=== PATIENT | female | born 1955 | race Caucasian/White ===

== ENCOUNTER 2019-07-23 03:06 | Emergency (ER) | payer OTHER, MEDICARE, SELFPAY ==
--- NOTE | 2019-07-23 03:12 | ED.NAVMDI ---
HPI - Nausea/Vomiting/Diarrhea General Chief complaint: Nausea/Vomiting/Diarrhea Stated complaint: vomiting Time Seen by Provider: 07/23/19 03:10 History of Present Illness HPI Narrative: Nausea, vomiting, and diarrhea for the past 4 days. Becoming more severe. No associated diffuse abdominal pain and fever yesterday. Additionally she has some light headedness upon standing. She is on peritoneal dialysis. She still makes some urine. Related Data Allergies Allergy/AdvReac Type Severity Reaction Status Date / Time azithromycin Allergy Severe Hives / Verified 10/16/18 12:25 Red Face cephalexin Allergy Severe Hives / Verified 10/16/18 12:25 Red Face Cephalosporins Allergy Severe Hives / Verified 10/16/18 12:25 Red Face hydrocodone Allergy Severe Hives / Verified 10/16/18 12:25 Red Face Penicillins Allergy Intermediate Hives / Verified 10/16/18 12:25 Red Face codeine Allergy Unknown Unknown Verified 10/16/18 12:25 tetracycline Allergy Unknown Rash Verified 10/16/18 12:25 aspirin AdvReac Severe Ulcers Verified 10/16/18 12:25 caffeine AdvReac Intermediate Other Verified 10/16/18 12:25 diazepam AdvReac Intermediate Confusion Verified 10/16/18 12:25 fentanyl AdvReac Intermediate Nausea Verified 10/16/18 12:25 orphenadrine AdvReac Intermediate Other Verified 10/16/18 12:25 Review of Systems Review of Systems: All systems reviewed & are unremarkable except as noted in HPI and below Constitutional: Constitutional: Reports fatigue and Reports fever(s) Cardiovascular: Cardiovascular: Denies chest pain Respiratory: Respiratory: Denies dyspnea Gastrointestinal: Gastrointestinal: Reports abdominal pain, Reports diarrhea, Reports nausea and Reports vomiting Genitourinary: Genitourinary: Denies dysuria Neurologic: Reports dizziness, Denies syncope and Denies focal weakness Endocrine: Endocrine: Reports fatigue [facility] Past Medical History Medical History (Updated 07/23/19 @ 04:43 by Christoph Carpenter MD) Diabetes mellitus ESRD (end stage renal disease) HTN (hypertension) Peritoneal dialysis status Family History Family History Mother Family history of diabetes mellitus in first degree relative Father Family history of lung cancer Other Malignant neoplasm of prostate Social History Social History Smoking status: Never smoker Alcohol intake: never Gender identity (if verbalized by the patient): Female Exam Const: General: alert and ill appearing acutely Nutritional Appearance: obese Orientation/consciousness: patient oriented x3 HENMT: Mouth: Yes dry mucous membranes Resp: Effort & Inspection: normal respiratory effort Auscultation: clear to auscultation bilaterally Cardio: Rate: tachycardic Rhythm: regular rhythm GI: GI Palp: Yes Soft to palpation and Yes Tenderness to palpation present (GI) Skin: General skin exam: normal color Neuro: General: patient oriented x3 and moves all extremities Speech: normal speech Extrem: General: normal to inspection Course Vital Signs Vital signs: Vital Signs Temperature 37.1 C 07/23/19 03:14 Pulse Rate 123 H 07/23/19 03:14 Respiratory Rate 33 H 07/23/19 03:14 Blood Pressure 117/99 H 07/23/19 03:14 Pulse Oximetry 100 07/23/19 03:14 Temperature 37.1 C 07/23/19 03:14 Pulse Rate 96 07/23/19 05:14 Respiratory Rate 18 07/23/19 05:14 Blood Pressure 135/61 07/23/19 05:14 Pulse Oximetry 99 07/23/19 05:14 MDM - Nausea/Vomiting/Diarrhea MDM Narrative Medical decision making narrative: Pain and vomiting resolved with treatment. She most likely has gastroenteritis and the pain was only due to prolonged episodes of vomiting. Tolerating PO. Wishes to go home at this time. Differential Diagnosis Differential diagnosis: Likely food poisoning, gastroenteritis, dehydration and other (peritonitis)
[2019-07-23 03:14] VITALS: BP 117/99; PULSE 123; RESP 33; TEMP 37.1; O2SAT 100
[2019-07-23] MEDS: ONDANSETRON INJ 4 MG/2 ML VIAL IV PUSH (03:30)
[2019-07-23] MEDS: SODIUM CHLORIDE 0.9% IV 2,000 ML 999 ML IV CONT (03:30)
[2019-07-23] MEDS: METOCLOPRAMIDE HCL INJ 10 MG/2 ML VIAL IV PUSH (03:30)
[2019-07-23 03:35] LABS: Basophils Percent Auto 0.4 % (0.2-1.2); Eosinophils Absolute Auto 0.1 K/mm3 (0-0.3); Eosinophils Percent Auto 0.5 % (0-4.4); Hematocrit 33.8 % (37.0-47.0); Hemoglobin 10.9 g/dL (12.0-15.0); Immature Granulocyte Absolute 0.05 K/mm3 (0.00-0.031); Immature Granulocyte Percent A 0.5 % (0-0.5); Lymphocytes Absolute Auto 1.09 K/mm3 (0.9-3.2); Lymphocytes Percent Auto 10.3 % (18.3-44.2); Mean Corpuscular HGB Conc 32.2 g/dl (32-36); Mean Corpuscular Hemoglobin 31.2 pg (26-34); Mean Corpuscular Volume 96.8 fl (80-100); Mean Platelet Volume 10.9 fl (7.4-10.4); Monocytes Absolute Auto 1.1 K/mm3 (0.1-0.6); Monocytes Percent Auto 10.2 % (2.6-8.5); Neutrophils Absolute Auto 8.3 K/mm3 (1.3-6.7); Neutrophils Percent Auto 78.1 % (45.5-73.1); Platelet Count Result 180 k/mm3 (150-375); Red Blood Count 3.49 M/mm3 (4.2-5.4); Red Cell Distribution Width 12.8 % (11.5-14.5); White Blood Count 10.6 K/mm3 (4.5-10.0)
[2019-07-23 03:46] LABS: Alanine Aminotransferase 17 U/L (4-35); Alkaline Phosphatase 63 U/L (38-126); Aspartate Amino Transferase 23 U/L (14-36); Bilirubin,Total 0.7 mg/dL (0.2-1.3); Blood Urea Nitrogen 34 mg/dL (7-17); Calcium 9.4 mg/dL (8.4-10.2); Carbon Dioxide 29 mmol/L (22-30); Chloride 93 mmol/L (98-107); Estimated CRCL calculation 7 ml/min; Estimated Glomerular Filt Rate 5; Glucose 214 mg/dL (65-105); Lipase 118 U/L (23-300); Potassium 3.3 mmol/L (3.4-5.0); Sodium 136 mmol/L (137-145)
[2019-07-23 04:16] VITALS: BP 132/66; PULSE 94; RESP 21; O2SAT 96
[2019-07-23] MEDS: SODIUM CHLORIDE 0.9% IV 1,000 ML 999 ML IV CONT (04:52)
--- NOTE | 2019-07-23 05:12 | PC.NURSE ---
PT PO CHALLENGED AT THIS TIME PER MD ORDERS.
[2019-07-23 05:14] VITALS: BP 135/61; PULSE 96; RESP 18; O2SAT 99
[2019-07-23 05:55] VITALS: BP 140/67; PULSE 101; RESP 20; O2SAT 97
--- NOTE | 2019-07-25 19:19 | PC.NURSE ---
LATE ENTRY This note is being entered to document information to the patient's record. The following information was omitted on 07/23/2019, ns stopped at [id number]
== END 2019-07-23 05:57 | disposition home or self-care (01) ==
PROVIDERS: Emergency Provider Emergency Medicine; PCP Family Medicine
DX: K52.9 Noninfective gastroenteritis and colitis, unspecified (principal); I12.0 Hypertensive chronic kidney disease with stage 5 chronic kidney disease or end stage renal disease; N18.6 End stage renal disease; Z99.2 Dependence on renal dialysis; E11.22 Type 2 diabetes mellitus with diabetic chronic kidney disease
CPT/HCPCS: 36415; 80053; 83690; 85025; 96361; 96374; 96375; 99284; J2405; J2765; J7030

== ENCOUNTER 2019-08-26 07:33 | Outpatient (CLI) | payer OTHER, MEDICARE, SELFPAY ==
--- NOTE | ~2019-08-26 | MR_ITS ---
EXAMINATION: MR brain/brain stem wo con DATE: 08/26/2019 09:09 CDT INDICATION: Amnesia. History of stroke. TECHNIQUE: Magnetic resonance imaging (MRI) of the brain and brainstem was performed without intraven ous contrast. Sequences included sagittal and axial T1-weighted SE, axial diffusion-weighted FS SE, a xial T2*-weighted GRE, axial T2-weighted FLAIR Propeller, and axial T2-weighted Propeller. Apparent d iffusion coefficient (ADC) maps were created. COMPARISON: MRI dated 09/07/2018 FINDINGS: The brain volume and ventricular system are within normal limits. The brain parenchymal si gnal intensity pattern and altamirano/white matter is normal and there is no evidence of hemorrhage, space occupying masses or infarctions. The flow signal voids of the major arterial structures about the enterprise of Up and within the naun r dural venous sinuses appear grossly unremarkable and patent. The seventh and eighth cranial nerve complexes are normal. The mid sagittal image demonstrates a normal craniovertebral junction and nyasia us callosum. The paranasal sinuses are grossly unremarkable. IMPRESSION: 1: Unremarkable MRI of the brain. Reviewed, dictated and finalized at location A.
== END 2019-08-26 07:34 | disposition home or self-care (01) ==
LOC: ANHIMG 07:42
PROVIDERS: PCP Family Medicine; Visit Provider Internal Medicine Nephrology
DX: Q61.2 Polycystic kidney, adult type (principal); R41.3 Other amnesia; Z82.3 Family history of stroke
CPT/HCPCS: 70551

== ENCOUNTER 2019-09-09 08:51 | Outpatient (CLI) | payer OTHER, MEDICARE, SELFPAY | END 2019-09-09 08:52 | disposition home or self-care (01) | PROVIDERS: PCP Family Medicine; Visit Provider Family Medicine | DX: E03.9 Hypothyroidism, unspecified (principal) | CPT/HCPCS: 36415; 84443 ==

== ENCOUNTER 2019-12-30 17:13 | Emergency (ER) | payer MEDICARE, OTHER, SELFPAY ==
[2019-12-30] VITALS (12 sets, daily range): BP systolic 129–164; BP diastolic 60–75; PULSE 114–123; RESP 13–20; TEMP 37.1; O2SAT 97–100
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
[2019-12-30] MEDS: MORPHINE SULFATE 2 MG/ML INJ IV PUSH (17:34)
[2019-12-30] MEDS: ONDANSETRON INJ 4 MG/2 ML VIAL IV PUSH (17:35)
--- NOTE | 2019-12-30 17:35 | ECG_ITS ---
Measurements Intervals [place] Rate: 111 P: 55 OK: 158 QRS: 27 QRSD: 92 T: 33 QT: 316 QTc: 431 Interpretive Statements SINUS TACHYCARDIA ABNORMAL ECG Electronically Signed On 12-30-2019 19:59:38 CDT by Felipe Olivares D.O.
[2019-12-30 17:52] LABS: Basophils Absolute Auto 0.1 K/mm3 (0.0-0.1); Basophils Percent Auto 0.7 % (0.2-1.2); Eosinophils Absolute Auto 0.5 K/mm3 (0-0.3); Eosinophils Percent Auto 7.5 % (0-4.4); Hematocrit 31.8 % (37.0-47.0); Hemoglobin 10.1 g/dL (12.0-15.0); Immature Granulocyte Absolute 0.01 K/mm3 (0.00-0.031); Immature Granulocyte Percent A 0.1 % (0-0.5); Lymphocytes Absolute Auto 1.74 K/mm3 (0.9-3.2); Lymphocytes Percent Auto 24.1 % (18.3-44.2); Mean Corpuscular HGB Conc 31.8 g/dl (32-36); Mean Corpuscular Hemoglobin 31.8 pg (26-34); Mean Platelet Volume 10.5 fl (7.4-10.4); Monocytes Absolute Auto 0.7 K/mm3 (0.1-0.6); Monocytes Percent Auto 9.5 % (2.6-8.5); Neutrophils Absolute Auto 4.2 K/mm3 (1.3-6.7); Neutrophils Percent Auto 58.1 % (45.5-73.1); Platelet Count Result 140 k/mm3 (150-375); Red Blood Count 3.18 M/mm3 (4.2-5.4); Red Cell Distribution Width 15.4 % (11.5-14.5); White Blood Count 7.2 K/mm3 (4.5-10.0)
[2019-12-30 18:01] LABS: Prothrombin Time 12.9 Seconds (11.1-14.7)
[2019-12-30 18:02] LABS: Alanine Aminotransferase 15 U/L (4-35); Albumin Level 3.9 g/dL (3.5-5.1); Alkaline Phosphatase 81 U/L (38-126); Anion Gap 14.8 mmol/L (7-16); Aspartate Amino Transferase 25 U/L (14-36); Bilirubin,Total 0.4 mg/dL (0.2-1.3); Blood Urea Nitrogen 38 mg/dL (7-17); Calcium 9.3 mg/dL (8.4-10.2); Carbon Dioxide 25 mmol/L (22-30); Chloride 100 mmol/L (98-107); Estimated CRCL calculation 6 ml/min; Estimated Glomerular Filt Rate 5; Glucose 143 mg/dL (65-105); Partial Thromboplastin Time 29.6 SECONDS (22.3-36.8); Potassium 3.8 mmol/L (3.4-5.0); Sodium 136 mmol/L (137-145)
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
== END 2019-12-30 18:20 | disposition short-term general hospital (02) ==
PROVIDERS: Emergency Medicine Emergency Medical Services; Emergency Provider Emergency Medicine; PCP Family Medicine
DX: R10.33 Periumbilical pain (principal); E11.22 Type 2 diabetes mellitus with diabetic chronic kidney disease; I12.0 Hypertensive chronic kidney disease with stage 5 chronic kidney disease or end stage renal disease; N18.6 End stage renal disease; Z99.2 Dependence on renal dialysis; V49.50XA Passenger injured in collision with unspecified motor vehicles in traffic accident, initial encounter; Z98.890 Other specified postprocedural states; R00.0 Tachycardia, unspecified
CPT/HCPCS: 36415; 71045; 72170; 80053; 85025; 85610; 85730; 93005; 96374; 96375; 99285; J2270; J2405

== ENCOUNTER 2020-07-02 10:07 | Emergency (ER) | payer OTHER, MEDICARE, SELFPAY ==
--- NOTE | ~2020-07-02 | XR_ITS ---
EXAMINATION: XR hip RT 2V w AP pelvis DATE: 07/02/2020 10:58 INDICATION: Right hip pain. TECHNIQUE: An anteroposterior view of the pelvis and 2 views of right hip were obtained. COMPARISON: Pelvis radiograph 12/30/2019 FINDINGS: Bone alignment is normal. No fracture. Joint spaces are normal. A peritoneal dialysis gary ter is noted. IMPRESSION: 1. Normal hips. Reviewed, dictated and finalized at location A. T TEAM MEMBER IMPRESSION: 1. Normal hips.
--- NOTE | ~2020-07-02 | XR_ITS ---
EXAMINATION: XR knee RT min 4V DATE: 07/02/2020 10:59 INDICATION: Right knee injury. TECHNIQUE: 4 views of right knee were obtained. COMPARISON: Right knee radiographs 05/08/2009 FINDINGS: Bone alignment is normal. No fracture. There is mild tricompartmental osteoarthritis. There is a small knee joint effusion. IMPRESSION: 1. Mild right knee osteoarthritis. 2. Small right knee joint effusion. Reviewed, dictated and finalized at location A. RONMENTAL COMPLIANCE INSPECTOR
--- NOTE | 2020-07-02 10:22 | ED.LOWEXIN ---
HPI - Extremity Injury (Lower) General Chief Complaint: Fall Stated Complaint: fall, right knee injury Time Seen by Provider: 07/02/20 10:22 History of Present Illness HPI Narrative: 64 you female present to the ED with knee pain. She reports that this morning she slipped on the ice and twisted her right knee. She reports several pops immediately and more pops when she began moving her knee again. She was then able to put it back in place . 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 And she ambulated into the ED to be seen. No weakness, numbness, wound. Related Data Home Medications Medication Instructions Recorded Confirmed albuterol sulfate 90 mcg/actuation 1 puff INHALATION Q4H PRN 03/25/20 05/26/20 aerosol inhaler cyclobenzaprine 10 mg tablet 10 mg PO BID PRN tablet 03/25/20 05/26/20 furosemide 80 mg tablet 80 mg PO BID 03/25/20 05/26/20 vitamin B complex-vitamin C-folic 1 tablet PO DAILY 03/25/20 05/26/20 acid 0.8 mg tablet Allergies Allergy/AdvReac Type Severity Reaction Status Date / Time azithromycin Allergy Severe Hives / Verified 03/25/20 13:54 Red Face cephalexin Allergy Severe Hives / Verified 03/25/20 13:54 Red Face Cephalosporins Allergy Severe Hives / Verified 03/25/20 13:54 Red Face hydrocodone Allergy Severe Hives / Verified 03/25/20 13:54 Red Face Penicillins Allergy Intermediate Hives / Verified 03/25/20 13:54 Red Face codeine Allergy Unknown Unknown Verified 03/25/20 13:54 tetracycline Allergy Unknown Rash Verified 03/25/20 13:54 aspirin AdvReac Severe Ulcers Verified 03/25/20 13:54 caffeine AdvReac Intermediate Other Verified 03/25/20 13:54 diazepam AdvReac Intermediate Confusion Verified 03/25/20 13:54 fentanyl AdvReac Intermediate Nausea Verified 03/25/20 13:54 orphenadrine AdvReac Intermediate Other Verified 03/25/20 13:54 Review of Systems Review of Systems: All systems reviewed & are unremarkable except as noted in HPI and below Constitutional: Constitutional: Denies fever(s) and Denies weakness ENT: Denies dizziness Cardiovascular: Cardiovascular: Denies chest pain Respiratory: Respiratory: Denies dyspnea Gastrointestinal: Gastrointestinal: Denies nausea Musculoskeletal: Musculoskeletal: Reports back pain (chronic) Neurologic: Denies dizziness, Denies numbness and Denies weakness [facility] Past Medical History Medical History Asthma Chronic back pain Diabetes mellitus (~1995) End-stage renal disease on peritoneal dialysis GERD (gastroesophageal reflux disease) Gout HTN (hypertension) (~1983) Hypothyroidism (acquired) Peritoneal dialysis status (~06/2016) Polycystic kidney disease Vitamin D deficiency Surgical History Surgical History H/O colonoscopy (~02/23/15) H/O hernia repair 06/1995, 11/2019 History of partial hysterectomy (~11/1993) History of removal of Port-a-Cath (~07/06/18) 1st: 2016. 2nd: 11/2018 History of tonsillectomy (~06/1959) History of tubal ligation (~06/1976) Hx of appendectomy (~01/1980) Hx of cholecystectomy (~04/1995) Hx of umbilical hernia repair (~06/1979) Status post chemotherapy (~2018) Family History Family History Mother Family history of diabetes mellitus in first degree relative Father Family history of lung cancer Other Malignant neoplasm of prostate Social History Social History Social History: Pt does not drink caffeine Smoking status: Never smoker Alcohol intake: never Substance use: never Substance use type: does not use Additional occupation/education comments: Pt works for [employer]. Gender identity (if verbalized by the patient): Female Spiritual care concerns: No Agree to blood products: Yes
[2020-07-02 10:30] VITALS: BP 165/79; PULSE 118; RESP 14; TEMP 35.9; O2SAT 99
[2020-07-02 13:04] VITALS: BP 154/70; PULSE 99; RESP 14; O2SAT 99
== END 2020-07-02 13:04 | disposition home or self-care (01) ==
PROVIDERS: Emergency Provider Emergency Medicine; PCP Family Medicine
DX: S83.91XA Sprain of unspecified site of right knee, initial encounter (principal); E11.22 Type 2 diabetes mellitus with diabetic chronic kidney disease; I12.0 Hypertensive chronic kidney disease with stage 5 chronic kidney disease or end stage renal disease; N18.6 End stage renal disease; Z99.2 Dependence on renal dialysis; J45.909 Unspecified asthma, uncomplicated; Q61.3 Polycystic kidney, unspecified; E55.9 Vitamin D deficiency, unspecified; E03.9 Hypothyroidism, unspecified; K21.9 Gastro-esophageal reflux disease without esophagitis; M10.9 Gout, unspecified; M17.11 Unilateral primary osteoarthritis, right knee; W00.0XXA Fall on same level due to ice and snow, initial encounter
CPT/HCPCS: 73502; 73564; 99284

== ENCOUNTER 2020-10-23 12:22 | Inpatient (IN) | payer MEDICARE, OTHER, SELFPAY ==
[2020-10-23] VITALS (12 sets, daily range): BP systolic 119–152; BP diastolic 51–73; PULSE 67–106; RESP 12–16; TEMP 36.2–37.1; O2SAT 98–100; BMI 33.2
--- NOTE | ~2020-10-23 | CT_ITS ---
EXAMINATION: CT abdomen pelvis wo con EXAM DATE: 10/23/2020 13:29 INDICATION: Abdominal pain, hypertension. Urinary tract infection. TECHNIQUE: Spiral CT of the abdomen and pelvis was performed without contrast. Axial, coronal and sag ittal images were reviewed. The dose-length product (DLP) for this examination was 1212.11 mGy-cm. The exposure was tailored according to patient size (auto mA exposure control), and iterative reconst ruction (ASIR) was used as additional dose reduction technique. Comparison is made to prior examinati on from 03/08/2018. FINDINGS: There are innumerable renal cysts and hemorrhagic cysts. Impossible to exclude renal cell c ancer in this setting. Innumerable liver cysts as well. Autosomal dominant polycystic kidney disease. There is no hydronephrosis. There is a peritoneal dialysis catheter with some dialysate, free pelvic fluid. Cholecystectomy clips. Spleen, adrenal glands, pancreas are unremarkable. No retroperitoneal lymphadenopathy. Bladder is collapsed. The appendix is not positively visualized. There is no pericecal inflammatory change to suggest appe ndicitis. There is extensive sigmoid colonic diverticulosis. There is no adjacent inflammatory barrientos e to suggest diverticulitis. The stomach and small bowel are unremarkable. There is expected amount of colonic stool. No free intraperitoneal gas. The heart is normal in size. There are no pericar dial or pleural effusions. The lung bases are unremarkable. There are no osteoblastic or osteolytic lesions identified. Mild to moderate lumbar levoscoliosis. Mild chronic compression fracture L1. IMPRESSION: 1. No acute intra-abdominal findings. 2. Autosomal dominant polycystic kidney disease. Impossible to exclude solid renal mass in the setti ng. 3. Extensive sigmoid colonic diverticulosis. Reviewed, dictated and finalized at location A. IMPRESSION: 1. No acute intra-abdominal findings. 2. Autosomal dominant polycystic kidney disease. Impossible to exclude solid r enal mass in the setting. 3. Extensive sigmoid colonic diverticulosis.
--- NOTE | ~2020-10-23 | XR_ITS ---
EXAMINATION: XR chest 2V EXAM DATE: 10/23/2020 12:45 INDICATION: Chest pain, shortness of breath. History hypertension. Dialysis. TECHNIQUE: Frontal and lateral projections of the chest obtained and reviewed. Comparison is made to prior examination from 12/30/2019. FINDINGS: The lungs are clear. There are no pleural effusions. The cardiomediastinal silhouette is within normal limits. There is no pneumothorax suspected. The bones and soft tissues are unremarkab le. There are cholecystectomy clips. IMPRESSION: No acute cardiopulmonary findings. Reviewed, dictated and finalized at location A.
--- NOTE | ~2020-10-23 | US_ITS ---
EXAMINATION: US renal BI DATE: 10/23/2020 17:09 INDICATION: Renal mass TECHNIQUE: Multiple grayscale and Doppler ultrasound images of the kidneys were obtained. COMPARISON: CT from today FINDINGS: The right kidney measures 9.9 x 5.1 x 4.8 cm and contains innumerable cysts. The largest me asured cyst is 1.8 cm in greatest dimension. The left kidney measures 9.8 x 4.3 x 5.0 cm and contains innumerable cysts. The largest measured cyst 4.2 cm in greatest dimension. No definite renal mass is identified. There is no hydronephrosis. The bladder demonstrates mild wall thickening which could be due to incomplete distention. IMPRESSION: 1. Polycystic kidneys without definite renal mass identified however evaluation for renal mass would be better achieved by CT or MRI without and with contrast. Reviewed, dictated and finalized at location A. IMPRESSION: 1. Polycystic kidneys without definite renal mass identified however evaluation for renal mass would be better achieved by CT or MRI without and with contrast .
--- NOTE | 2020-10-23 12:25 | ECG_ITS ---
Measurements Intervals [place] Rate: 104 P: 41 NM: 155 QRS: 20 QRSD: 86 T: 35 QT: 329 QTc: 435 Interpretive Statements SINUS TACHYCARDIA BASELINE ARTIFACT- I, II, III, AVF, V2-V6 BORDERLINE ECG Electronically Signed On 10-23-2020 13:09:45 CDT by Felipe Olivares D.O.
--- NOTE | 2020-10-23 12:35 | PC.NURSE ---
to xray at this time on cardiac cath lab technologist.
[2020-10-23 12:41] LABS: Basophils Absolute Auto 0.1 K/mm3 (0.0-0.1); Basophils Percent Auto 0.7 % (0.2-1.2); Eosinophils Absolute Auto 0.1 K/mm3 (0-0.3); Eosinophils Percent Auto 1.6 % (0-4.4); Hematocrit 27.7 % (37.0-47.0); Hemoglobin 8.8 g/dL (12.0-15.0); Immature Granulocyte Absolute 0.04 K/mm3 (0.00-0.031); Immature Granulocyte Percent A 0.5 % (0-0.5); Lymphocytes Absolute Auto 1.88 K/mm3 (0.9-3.2); Lymphocytes Percent Auto 23.2 % (18.3-44.2); Mean Corpuscular HGB Conc 31.8 g/dl (32-36); Mean Corpuscular Volume 100.7 fl (80-100); Mean Platelet Volume 10.5 fl (7.4-10.4); Monocytes Absolute Auto 0.7 K/mm3 (0.1-0.6); Monocytes Percent Auto 8.4 % (2.6-8.5); Neutrophils Absolute Auto 5.3 K/mm3 (1.3-6.7); Neutrophils Percent Auto 65.6 % (45.5-73.1); Platelet Count Result 170 k/mm3 (150-375); Red Blood Count 2.75 M/mm3 (4.2-5.4); Red Cell Distribution Width 13.9 % (11.5-14.5); White Blood Count 8.1 K/mm3 (4.5-10.0)
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
--- NOTE | 2020-10-23 12:45 | PC.NURSE ---
PT REPORTS SHE IS SWEATING, FLUSHED AND FEELS FAINT, VSS AT THIS TIME, EDP ANIRUDH AT BEDSIDE FOR ASSESSMENT. COOL TOWEL PLACED ON HEAD.
[2020-10-23 12:51] LABS: INR 0.9; Prothrombin Time 12.7 Seconds (11.1-14.7)
[2020-10-23 12:52] LABS: Anion Gap 14 mmol/L (8-16); Blood Urea Nitrogen 51 mg/dL (7-17); Carbon Dioxide 22 mmol/L (22-30); Chloride 98 mmol/L (98-107); Estimated CRCL calculation 4 ml/min; Estimated Glomerular Filt Rate 3; Glucose 162 mg/dL (65-105); Partial Thromboplastin Time 27.6 SECONDS (22.3-36.8); Potassium 3.9 mmol/L (3.4-5.0); Sodium 134 mmol/L (137-145)
[2020-10-23] MEDS: MORPHINE SULFATE (*CRX) 4 MG/ML INJ IV PUSH (12:54)
[2020-10-23] MEDS: ONDANSETRON INJ 4 MG/2 ML VIAL IV PUSH ×2 (12:54→18:25)
[2020-10-23 13:04] LABS: Troponin I < 0.012 ng/mL (0.000-0.034)
[2020-10-23 13:21] LABS: Lactic Acid Reflex 1.3 mmol/L (0.7-2.1)
--- NOTE | 2020-10-23 13:56 | ED.CHESTPAIN ---
HPI - Chest Pain General Chief Complaint: Chest Pain Stated Complaint: sudden chest tightness Time Seen by Provider: 10/23/20 12:44 Source: patient Mode of arrival: ambulatory Limitations: no limitations History of Present Illness HPI narrative: 64-year-old with a history of hypertension, end-stage renal disease secondary to polycystic kidney disease on peritoneal dialysis for last 8 years here with complaints of chest pain and abdominal pain associated with nausea and diaphoresis. Patient states that pain started about 1 hour ago. She denies any fever or chills. Patient states that flow from the peritoneal dialysis catheter was slower last night however the fluid was clear. She denies any fever or chills. No history of cough or shortness of breath. MD complaint: chest pain Onset (ago): hour(s) (1) Timing of current episode: episodic Pain location: substernal Pain radiation: none Severity: moderate Quality: heaviness Relieving factors: nothing Exacerbating factors: nothing Treatment prior to arrival: none Risk Factors Coronary artery disease risk factors: hypertension Thoracic aortic dissection risk factors: none Related Data Home Medications Medication Instructions Recorded Confirmed albuterol sulfate 90 mcg/actuation 1 puff INHALATION Q4H PRN 03/25/20 07/03/20 aerosol inhaler furosemide 80 mg tablet 80 mg PO BID 03/25/20 07/03/20 vitamin B complex-vitamin C-folic 1 tablet PO DAILY 03/25/20 07/03/20 acid 0.8 mg tablet Allergies Allergy/AdvReac Type Severity Reaction Status Date / Time azithromycin Allergy Severe Hives / Verified 03/25/20 13:54 Red Face cephalexin Allergy Severe Hives / Verified 03/25/20 13:54 Red Face Cephalosporins Allergy Severe Hives / Verified 03/25/20 13:54 Red Face hydrocodone Allergy Severe Hives / Verified 03/25/20 13:54 Red Face Penicillins Allergy Intermediate Hives / Verified 03/25/20 13:54 Red Face codeine Allergy Unknown Unknown Verified 03/25/20 13:54 tetracycline Allergy Unknown Rash Verified 03/25/20 13:54 aspirin AdvReac Severe Ulcers Verified 03/25/20 13:54 caffeine AdvReac Intermediate Other Verified 03/25/20 13:54 diazepam AdvReac Intermediate Confusion Verified 03/25/20 13:54 fentanyl AdvReac Intermediate Nausea Verified 03/25/20 13:54 orphenadrine AdvReac Intermediate Other Verified 03/25/20 13:54 Review of Systems Review of Systems: All systems reviewed & are unremarkable except as noted in HPI and below Constitutional: Constitutional: Reports no additional constitutional complaints Eyes: Eyes: Reports no additional eye complaints ENT: Reports system reviewed and no additional complaints, except as documented Cardiovascular: Cardiovascular: Reports as per HPI Respiratory: Respiratory: Reports no additional respiratory complaints Gastrointestinal: Gastrointestinal: Reports as per HPI, Reports abdominal pain and Reports nausea Musculoskeletal: Musculoskeletal: Reports no additional musculoskeletal complaints Neurologic: Reports system reviewed and no additional complaints, except as documented PMFSH Past Medical History Medical History Asthma Chronic back pain Diabetes mellitus (~1995) End-stage renal disease on peritoneal dialysis GERD (gastroesophageal reflux disease) Gout HTN (hypertension) (~1983) Hypothyroidism (acquired) Peritoneal dialysis status (~06/2016) Polycystic kidney disease Vitamin D deficiency Surgical History Surgical History H/O colonoscopy (~02/23/15) H/O hernia repair 06/1995, 11/2019 History of partial hysterectomy (~11/1993) History of removal of Port-a-Cath (~07/06/18) 1st: 2016. 2nd: 11/2018 History of tonsillectomy (~06/1959) History of tubal ligation (~06/1976) Hx of appendectomy (~01/1980) Hx of cholecystectomy (~04/1995) Hx of umbilical hernia repair (~06/1979) Status post chemotherapy (~201
--- NOTE | 2020-10-23 14:49 | ADMGEN ---
This patient, Shantelle Salinas, was admitted to IMU Room 203-01. Patient/family oriented to hospital policies and general routines including ID bracelet, bed and alarms, visiting hours, pain management, procedures, bathroom and other care routines, personal items, smoking policy, room service/diet, and visiting hours. Information on how to activate the Rapid Response Team has been discussed. Patient/Family are encouraged to report perceived risks to care and to ask questions if they do not understand what they are told or what they should do.
--- NOTE | 2020-10-23 15:43 | PM.IMHP ---
H&P: HPI History of Present Illness Date/Time: 10/23/20 15:43 this is a 64-year-old female patient who has been on peritoneal dialysis since she was 59 years old. She has polycystic kidney disease. The patient does peritoneal dialysis every night while she sleeps. The patient stated that her dialysis catheter has been draining fine. She stated that the clear fluid has been coming from her peritoneal dialysis. In for left-sided chest pressure that she stated radiated to her left arm and she felt diaphoretic and short of breath at the time. It Is now resolved. The patient is now complaining of right lower quadrant tenderness. Nephrology has been consulted. And the deviated team came to draw fluid offer for her abdomen and sent it for culture. I did review the fluid myself that was obtained from the peritoneal dialysis catheter in it appears to be clear. Patient has tenderness to the right lower quadrant but is not in a significant amount of pain. She stated that she would like a Tylenol and that would work for her. Her troponin is negative so far. Patient's EKG was read as sinus tachycardia with heart rate of 104. No acute intra-abdominal findings. Autosomal dominant polycystic kidney disease and possible to exclude solid renal mass in the setting. Extensive sigmoid colonic diverticulosis. Was read as no acute cardiopulmonary findings. H&H is 8.8 and 27.7. The patient stated that she does get Epogen maybe once a week. The patient stated that she does make urine but is very little amount. The patient is being admitted to observation status on the date of service 10/23/2020. Chief Complaint: Chest pain with abdominal pain Review of Systems Review of Systems: All systems reviewed & are unremarkable except as noted in HPI and below Constitutional: Constitutional: Reports as per HPI and Reports no additional constitutional complaints Eyes: Eyes: Reports as per HPI and Reports no additional eye complaints ENT: Reports system reviewed and no additional complaints, except as documented and Reports Normal hearing present Cardiovascular: Cardiovascular: Reports no additional cardiovascular complaints Respiratory: Respiratory: Reports no additional respiratory complaints and Reports no additional respiratory complaints Gastrointestinal: Gastrointestinal: Reports as per HPI and Reports no additional gastrointestinal complaints Musculoskeletal: Musculoskeletal: Reports no additional musculoskeletal complaints Integumentary/Breasts: Skin/Breast: Reports system reviewed and no additional complaints, except as docu and Reports as per HPI Neurologic: Reports system reviewed and no additional complaints, except as documented, Reports as per HPI and Reports Normal hearing present Psychiatric: Psychiatric: Reports no additional psychiatric complaints and Reports as per HPI Endocrine: Endocrine: Reports no additional endocrine complaints Hematologic/Lymphatic: Hematologic/Lymphatic: Reports no additional hematologic/lymphatic complaints Allergic/Immunologic: Allergic/Immunologic: Reports no additional allergic/immunologic complaints [facility] Past Medical History Medical History (Updated 10/23/20 @ 16:29 by Pratibha Perez NP) Anemia of chronic disease Asthma Chronic back pain Diabetes mellitus (~1995) End-stage renal disease on peritoneal dialysis GERD (gastroesophageal reflux disease) Gout HTN (hypertension) (~1983) Hypothyroidism (acquired) Peritoneal dialysis status (~06/2016) Polycystic kidney disease Vitamin D deficiency Surgical History Surgical History (Updated 10/23/20 @ 16:06 by Pratibha Perez NP) H/O colonoscopy (~02/23/15) H/O hernia repair 06/1995, 11/2019 History of partial hysterectomy (~11/1993) History of tonsillectomy (~06/1959) History of tubal ligation (~06/1976) Hx of appendectomy (~01/1980) Hx of cholecystectomy (~04/1995) Hx of umbilical hernia repair (~06/1979) Family History Family History (Updated
[2020-10-23 16:15] LABS: Troponin I < 0.012 ng/mL (0.000-0.034)
--- NOTE | 2020-10-23 16:23 | PM.CNNEP ---
Assessment and Plan Assessment and plan (1) End-stage renal disease on peritoneal dialysis: Code(s): N18.6 - End stage renal disease; Z99.2 - Dependence on renal dialysis Status: Acute Assessment and Plan: The patient is on peritoneal dialysis. He has been on dialysis for 5 years. Generally her dialysis goes well. Recently she has had good flows and no alarms. Her fluid has been clear. She does have the belly pain but it is very localized to that right middle nonant. The rest of the belly has no tenderness and no peritoneal signs. The tunnel and exit site are on the left, no where near where her pain is. Her labs are okay and her volume status is good. (2) Chest pain: Qualifiers: Chest pain type: unspecified Qualified Code(s): R07.9 - Chest pain, unspecified Code(s): R07.9 - Chest pain, unspecified Status: Acute Assessment and Plan: She had chest pain with tingling in the left arm. This is being evaluated by the hospitalist. (3) Abdominal pain: Qualifiers: Abdominal location: generalized Qualified Code(s): R10.84 - Generalized abdominal pain Code(s): R10.9 - Unspecified abdominal pain Status: Acute Assessment and Plan: I looked at her CT scan. She has a big liver full is cysts. Her kidneys are full is cysts also but are not very big. I suspect that this may be polycystic liver disease. The tenderness might be liver tenderness. She does not seem to be volume overloaded so I do not think his passive congestion. She also has normal liver enzyme so there does not seem to be in acute hepatitic issue. Perhaps she bled into a cyst. However she also has the nausea and vomiting with pink sludge vomitus. So she might be having some sort of a GI bleed issue. Will check stool guaiacs. Dr. Chase is being consulted. (4) Polycystic kidney disease: Code(s): Q61.3 - Polycystic kidney, unspecified Status: Acute Assessment and Plan: The patient has polycystic kidneys. It does not seem to be any kidney stones, pain with urination, bloody urine or headaches. (5) HTN (hypertension): Onset Date: ~1983 Qualifiers: Hypertension type: essential hypertension Qualified Code(s): I10 - Essential (primary) hypertension Code(s): I10 - Essential (primary) hypertension Status: Acute Assessment and Plan: Her blood pressure is well controlled. (6) Anemia of chronic disease: Code(s): D63.8 - Anemia in other chronic diseases classified elsewhere Status: Chronic Assessment and Plan: Her hemoglobin is 8.8. Will start Epogen subcu. (7) Gout: Qualifiers: Gout site: unspecified site Gout etiology: unspecified cause Chronicity: unspecified Qualified Code(s): M10.9 - Gout, unspecified Code(s): M10.9 - Gout, unspecified Status: Acute Assessment and Plan: This is quiescent. (8) Diabetes mellitus: Onset Date: ~1995 Qualifiers: Diabetes mellitus type: type 2 Diabetes mellitus alf insulin use: without director long term care use Diabetes mellitus complication status: without complication Qualified Code(s): E11.9 - Type 2 diabetes mellitus without complications Code(s): E11.9 - Type 2 diabetes mellitus without complications Status: Acute Assessment and Plan: To be monitored. History of Present Illness Reason for Consult Consult date: 10/23/20 Chief Complaint Chief complaint: ABDOMINAL PAIN History of Present Illness Narrative: Courtney is a very pleasant 64-year-old lady who has multiple medical problems including diabetes, hypertension, polycystic kidneys, end-stage renal disease on peritoneal dialysis every night, COPD on inhalers, gout on allopurinol, hypothyroidism, GERD, anemia of chronic kidney disease, renal osteodystrophy. The patient has been having problems for about a month or 5 weeks. She says that she occasionally h
[2020-10-23 16:36] LABS: Phosphorus 7.9 mg/dL (2.5-4.5)
[2020-10-23 18:05] LABS: Glucose Point of Care 118 mg/dl (65-105)
[2020-10-23] MEDS: ACETAMINOPHEN 325 MG TABLET 650 MG PO (18:13)
[2020-10-23 18:14] LABS: Immature Reticulocyte Fraction 26.9 % (3.0-15.9); Reticulocyte Percent 2.19 % (0.7-4.3); Reticulocytes Absolute 0.06 B/L (32.2-175.7)
[2020-10-23] MEDS: SEVELAMER CARBONATE 800 MG TABLET 1600 MG PO (18:15)
[2020-10-23] MEDS: FUROSEMIDE 80 MG TABLET PO (18:15)
[2020-10-23 18:35] LABS: Troponin I < 0.012 ng/mL (0.000-0.034)
[2020-10-23] MEDS: EPOETIN ALFA-EPBX 10,000 UNITS/ML VIAL 10000 UNITS SUB-Q (18:46)
[2020-10-23 19:04] LABS: Iron 80 ug/dL (37-170)
[2020-10-23 19:13] LABS: Percent Iron Saturation 35 % (20-50)
--- NOTE | 2020-10-23 19:35 | PC.NURSE ---
Called Dr. Flowers to clarify patients peritoneal dialysis settings. His current orders differ from what the patient states her normal home settings are. Dr. Flowers stated to ask ARNULFO Long the online advertising analyst fleet salesperson to come to [facility] and work with the patient to set the PD machine to reflect her current home settings and run the patient overnight per her normal routine. I called ARNULFO Long and spoke to him informing him of Dr. Flowers's verbal instructions. Ethan stated that he understood and would be to [facility] once he finished his current dialysis treatment patient at [facility] Patient informed of new information.
[2020-10-23 20:03] LABS: Appearance Peritoneal Fluid Cloudy (Clear); Color Peritoneal Fluid Colorless (Colorless); Nucleated Cells Peritoneal Flu 135 /uL (0-500); RBC Peritoneal Fluid 0 /uL (0-100000); Source Peritoneal Fluid Peritoneal Fluid
[2020-10-23] MEDS: MORPHINE SULFATE (*CRX) 2 MG/ML INJ IV PUSH (20:13)
[2020-10-23 20:39] LABS: Folic Acid > 20.0 ng/mL (2.76->20)
[2020-10-23 21:44] LABS: Glucose Point of Care 129 mg/dl (65-105)
[2020-10-24] VITALS (10 sets, daily range): BP systolic 99–112; BP diastolic 43–49; PULSE 57–76; RESP 16–24; TEMP 35.8–36.3; O2SAT 99–100
[2020-10-24] MEDS: LEVOTHYROXINE SODIUM 12.5 MCG TABLET PO (05:45)
[2020-10-24 05:46] LABS: Basophils Absolute Auto 0.1 K/mm3 (0.0-0.1); Basophils Percent Auto 0.9 % (0.2-1.2); Eosinophils Absolute Auto 0.3 K/mm3 (0-0.3); Hematocrit 27.7 % (37.0-47.0); Hemoglobin 8.7 g/dL (12.0-15.0); Immature Granulocyte Absolute 0.02 K/mm3 (0.00-0.031); Immature Granulocyte Percent A 0.3 % (0-0.5); Lymphocytes Absolute Auto 1.89 K/mm3 (0.9-3.2); Lymphocytes Percent Auto 29.3 % (18.3-44.2); Mean Corpuscular HGB Conc 31.4 g/dl (32-36); Mean Corpuscular Hemoglobin 32.5 pg (26-34); Mean Corpuscular Volume 103.4 fl (80-100); Mean Platelet Volume 10.7 fl (7.4-10.4); Monocytes Absolute Auto 0.6 K/mm3 (0.1-0.6); Monocytes Percent Auto 8.5 % (2.6-8.5); Neutrophils Absolute Auto 3.7 K/mm3 (1.3-6.7); Platelet Count Result 162 k/mm3 (150-375); Red Blood Count 2.68 M/mm3 (4.2-5.4); Red Cell Distribution Width 13.8 % (11.5-14.5); White Blood Count 6.5 K/mm3 (4.5-10.0)
[2020-10-24 06:17] LABS: Alanine Aminotransferase 15 U/L (4-35); Albumin Level 3.7 g/dL (3.5-5.1); Alkaline Phosphatase 33 U/L (38-126); Anion Gap 12 mmol/L (8-16); Aspartate Amino Transferase 25 U/L (14-36); Bilirubin,Total 0.4 mg/dL (0.2-1.3); Blood Urea Nitrogen 48 mg/dL (7-17); Calcium 10.1 mg/dL (8.4-10.2); Carbon Dioxide 26 mmol/L (22-30); Chloride 97 mmol/L (98-107); Estimated CRCL calculation 4 ml/min; Estimated Glomerular Filt Rate 3; Glucose 134 mg/dL (65-105); Magnesium 2.7 mg/dL (1.6-2.3); Potassium 3.6 mmol/L (3.4-5.0); Sodium 135 mmol/L (137-145)
[2020-10-24 06:36] LABS: Hemoglobin A1C 6.3 % (<5.7)
[2020-10-24 08:32] LABS: Glucose Point of Care 138 mg/dl (65-105)
[2020-10-24] MEDS: allopurinoL 150 MG TABLET PO (08:48)
[2020-10-24] MEDS: PANTOPRAZOLE 40 MG TABLET PO (08:48)
[2020-10-24] MEDS: METOPROLOL SUCCINATE EXT REL 25 MG TABCR PO (08:48)
[2020-10-24] MEDS: SEVELAMER CARBONATE 800 MG TABLET 1600 MG PO ×2 (08:48→16:52)
[2020-10-24] MEDS: VITAMIN B CMPLX/VIT C/FOLIC AC 1 CAPSULE 1 CAP PO (08:48)
[2020-10-24] MEDS: PIOGLITAZONE HCL 30 MG TABLET PO (08:48)
[2020-10-24] MEDS: FUROSEMIDE 80 MG TABLET PO ×2 (08:49→16:52)
[2020-10-24] MEDS: lisinopriL 10 MG TABLET PO (08:49)
--- NOTE | 2020-10-24 11:06 | PM.PNNEP ---
Progress Note: A&P Assessment and Plan (1) End-stage renal disease on peritoneal dialysis: Code(s): N18.6 - End stage renal disease; Z99.2 - Dependence on renal dialysis Status: Acute Assessment and Plan: The patient is on peritoneal dialysis. He has been on dialysis for 5 years. Dialysis went well last night. (2) Chest pain: Qualifiers: Chest pain type: unspecified Qualified Code(s): R07.9 - Chest pain, unspecified Code(s): R07.9 - Chest pain, unspecified Status: Acute Assessment and Plan: She had chest pain with tingling in the left arm. This is being evaluated by the hospitalist. (3) Abdominal pain: Qualifiers: Abdominal location: generalized Qualified Code(s): R10.84 - Generalized abdominal pain Code(s): R10.9 - Unspecified abdominal pain Status: Acute Assessment and Plan: This pain is about the same. The area she has her pain seems to correspond to the inferior aspect of her liver. She was vomiting pink stuff for the last month. Dr. Chase seeing the patient. (4) Polycystic kidney disease: Code(s): Q61.3 - Polycystic kidney, unspecified Status: Acute Assessment and Plan: The patient has polycystic kidneys. It does not seem to be any kidney stones, pain with urination, bloody urine or headaches. (5) HTN (hypertension): Onset Date: ~1983 Qualifiers: Hypertension type: essential hypertension Qualified Code(s): I10 - Essential (primary) hypertension Code(s): I10 - Essential (primary) hypertension Status: Acute Assessment and Plan: Her blood pressure is well controlled. (6) Anemia of chronic disease: Code(s): D63.8 - Anemia in other chronic diseases classified elsewhere Status: Chronic Assessment and Plan: Her hemoglobin is 8.8. On Epogen. (7) Gout: Qualifiers: Gout site: unspecified site Gout etiology: unspecified cause Chronicity: unspecified Qualified Code(s): M10.9 - Gout, unspecified Code(s): M10.9 - Gout, unspecified Status: Acute Assessment and Plan: This is quiescent. (8) Diabetes mellitus: Onset Date: ~1995 Qualifiers: Diabetes mellitus type: type 2 Diabetes mellitus termite helper insulin use: without termite helper use Diabetes mellitus complication status: without complication Qualified Code(s): E11.9 - Type 2 diabetes mellitus without complications Code(s): E11.9 - Type 2 diabetes mellitus without complications Status: Acute Assessment and Plan: To be monitored. Subjective Date/time seen: 10/24/20 11:06 Interval history: Patient feels about the same. No fevers or chills. Eating well. Dialysis went okay last night. She still has pain in the right middle nonant. Review of Systems Cardiovascular: Cardiovascular: Reports no additional cardiovascular complaints Respiratory: Respiratory: Reports no additional respiratory complaints Gastrointestinal: Gastrointestinal: Reports no additional gastrointestinal complaints Genitourinary: Genitourinary: Reports no additional female genitourinary complaints Exam Narrative: Exam Narrative: WDWN in NAD skin no rash or subcu nodules head ncat lungs clear cor reg no rub or gallop abd BS+ nontender and soft ext no edema. Objective Data Vital Signs Vital Signs: Vital Signs - 24 hr 10/23/20 12:20 10/23/20 12:26 10/23/20 12:44 Temperature 37.1 C Pulse Rate 101 H 106 H 104 H Respiratory Rate 15 15 Blood Pressure 119/52 L 133/55 L Pulse Oximetry 98 100 10/23/20 13:40 10/23/20 14:34 10/23/20 14:50 Temperature 36.2 C L Pulse Rate 93 91 83 Respiratory Rate 12 15 14 Blood Pressure 128/54 L 152/73 H 122/53 L Pulse Oximetry 100 100 100 10/23/20 14:56 10/23/20 16:00 10/23/20 18:00 Temperature Pulse Rate 96 89 80 Respiratory Rate Blood Pressure Pulse Oximetry 10/23/20 2
[2020-10-24] MEDS: ONDANSETRON INJ 4 MG/2 ML VIAL IV PUSH (11:55)
[2020-10-24 12:17] LABS: Glucose Point of Care 156 mg/dl (65-105)
[2020-10-24] MEDS: oxyCODONE/ACETAMINOPHEN (*CRX) 5-325 MG TABLET 1 TABLET PO ×2 (12:20→12:22)
--- NOTE | 2020-10-24 12:53 | PM.IMPN ---
Progress Note: A&P Assessment and Plan (1) Chest pain: Qualifiers: Chest pain type: unspecified Qualified Code(s): R07.9 - Chest pain, unspecified Code(s): R07.9 - Chest pain, unspecified Status: Acute Assessment and Plan: Patient's chest x-ray was negative for anything acute. Her EKG shows a normal sinus rhythm. Patient's troponin was negative. Her chest pain. Resolved. . (2) Abdominal pain: Qualifiers: Abdominal location: generalized Qualified Code(s): R10.84 - Generalized abdominal pain Code(s): R10.9 - Unspecified abdominal pain Status: Acute Assessment and Plan: The patient is complaining lower quadrant abdominal pain which is tender. She does have extensive sigmoid colonic diverticulosis but no diverticulitis is seen at this time. Also is noted that the patient has a possible solid renal mass in the setting. On the CT scan it was read as impossible to exclude solid renal mass in the setting. A renal ultrasound has been ordered. She also has a cystic liver. (3) Peritoneal dialysis catheter in place: Code(s): Z99.2 - Dependence on renal dialysis Status: Acute Assessment and Plan: Patient performs peritoneal dialysis every night. To Dr. Flowers has been consulted has seen the patient. (4) Hypothyroidism (acquired): Code(s): E03.9 - Hypothyroidism, unspecified Status: Acute Assessment and Plan: Check her thyroid level and continue with her levothyroxine. (5) HTN (hypertension): Onset Date: ~1983 Qualifiers: Hypertension type: essential hypertension Qualified Code(s): I10 - Essential (primary) hypertension Code(s): I10 - Essential (primary) hypertension Status: Acute Assessment and Plan: Continue with patient's home medications of lisinopril and Lasix. (6) Diabetes mellitus: Onset Date: ~1995 Qualifiers: Diabetes mellitus type: type 2 Diabetes mellitus skilled nursing insulin use: without lean process deployment consultant use Diabetes mellitus complication status: without complication Qualified Code(s): E11.9 - Type 2 diabetes mellitus without complications Code(s): E11.9 - Type 2 diabetes mellitus without complications Status: Acute Assessment and Plan: I did order her Accu-Cheks AC and HS with sliding scale insulin. The patient stated that her blood sugars are typically in the 100s continue with metoprolol as well.. Continue with her home medications. She is on Actos (7) End-stage renal disease on peritoneal dialysis: Code(s): N18.6 - End stage renal disease; Z99.2 - Dependence on renal dialysis Status: Acute Assessment and Plan: Patient self administers peritoneal dialysis nightly. Continue with is on Renvela (8) Asthma: Qualifiers: Asthma severity: mild Asthma persistence: intermittent Asthma complication type: uncomplicated Qualified Code(s): J45.20 - Mild intermittent asthma, uncomplicated Code(s): J45.909 - Unspecified asthma, uncomplicated Status: Acute Assessment and Plan: Continue with home medications. The patient is on ProAir. (9) GI bleed: Code(s): K92.2 - Gastrointestinal hemorrhage, unspecified Status: Acute Assessment and Plan: The patient stated that the last time she coughed up some pink tinged sludge was approximately 3 days ago. The patient stated that she is supposed to follow-up with Dr. paiz. (10) Anemia of chronic disease: Code(s): D63.8 - Anemia in other chronic diseases classified elsewhere Status: Chronic Assessment and Plan: Patient's hemoglobin is 8.8 now. Her last known hemoglobin was 10.1 on 12/30/2019. Subjective Date/time seen: 10/24/20 12:53 Interval history: 64-year-old female patient who has been on peritoneal dialysis since she was 59 years old. She has polycystic kidney disease. The patient does peritoneal dialysis every night
[2020-10-24 16:16] LABS: Glucose Point of Care 161 mg/dl (65-105)
--- NOTE | 2020-10-24 16:44 | PC.NURSE ---
This patient, Shantelle Salinas, was transferred to [facility] on 10/24/20 at 1640. Personal belongings sent with patient. Report given to Chanelle ARREDONDO. Appropriate documentation sent with patient.
--- NOTE | 2020-10-24 16:45 | PC.NURSE ---
This patient, Shantelle Salinas, was received from [ IMU] on 10/24/20 at 1645. Patient/family oriented to unit policies and routines
[2020-10-24] MEDS: polyethylene glycoL 3350 17 GM POWD.PACK PO (17:00)
[2020-10-24 20:49] LABS: Glucose Point of Care 203 mg/dl (65-105)
[2020-10-25] MEDS: ONDANSETRON INJ 4 MG/2 ML VIAL IV PUSH ×4 (00:05→23:38)
[2020-10-25] MEDS: oxyCODONE/ACETAMINOPHEN (*CRX) 5-325 MG TABLET 1 TABLET PO ×3 (00:09→18:46)
[2020-10-25] MEDS: LEVOTHYROXINE SODIUM 12.5 MCG TABLET PO (05:53)
[2020-10-25 05:55] VITALS: BP 115/47; PULSE 80; RESP 16; TEMP 35.9; O2SAT 100
[2020-10-25 06:19] LABS: Hematocrit 25.2 % (37.0-47.0); Hemoglobin 7.9 g/dL (12.0-15.0); Mean Corpuscular HGB Conc 31.3 g/dl (32-36); Mean Corpuscular Hemoglobin 32.2 pg (26-34); Mean Corpuscular Volume 102.9 fl (80-100); Mean Platelet Volume 10.8 fl (7.4-10.4); Platelet Count Result 135 k/mm3 (150-375); Red Blood Count 2.45 M/mm3 (4.2-5.4); Red Cell Distribution Width 13.8 % (11.5-14.5); White Blood Count 6.7 K/mm3 (4.5-10.0)
[2020-10-25 06:47] LABS: Anion Gap 10 mmol/L (8-16); Blood Urea Nitrogen 49 mg/dL (7-17); Calcium 9.4 mg/dL (8.4-10.2); Carbon Dioxide 26 mmol/L (22-30); Chloride 95 mmol/L (98-107); Glucose 125 mg/dL (65-105); Potassium 3.9 mmol/L (3.4-5.0); Sodium 131 mmol/L (137-145)
[2020-10-25 07:05] LABS: Estimated CRCL calculation 4 ml/min; Estimated Glomerular Filt Rate 3
[2020-10-25 07:45] LABS: Glucose Point of Care 113 mg/dl (65-105)
[2020-10-25] MEDS: SEVELAMER CARBONATE 800 MG TABLET 1600 MG PO ×3 (08:44→16:31)
[2020-10-25] MEDS: polyethylene glycoL 3350 17 GM POWD.PACK PO (08:44)
[2020-10-25 08:45] VITALS: PULSE 80
[2020-10-25] MEDS: allopurinoL 150 MG TABLET PO (08:45)
[2020-10-25] MEDS: FUROSEMIDE 80 MG TABLET PO ×2 (08:45→16:31)
[2020-10-25] MEDS: PANTOPRAZOLE 40 MG TABLET PO (08:45)
[2020-10-25] MEDS: lisinopriL 10 MG TABLET PO (08:45)
[2020-10-25] MEDS: VITAMIN B CMPLX/VIT C/FOLIC AC 1 CAPSULE 1 CAP PO (08:45)
[2020-10-25] MEDS: PIOGLITAZONE HCL 30 MG TABLET PO (08:45)
[2020-10-25] MEDS: METOPROLOL SUCCINATE EXT REL 25 MG TABCR PO (08:45)
--- NOTE | 2020-10-25 09:15 | PM.PNNEP ---
Progress Note: A&P Assessment and Plan (1) End-stage renal disease on peritoneal dialysis: Code(s): N18.6 - End stage renal disease; Z99.2 - Dependence on renal dialysis Status: Acute Assessment and Plan: The patient is on peritoneal dialysis. He has been on dialysis for 5 years. Dialysis went well last night. Her creatinine is 13. [place] at the dialysis unit show that she is getting adequate dialysis. (2) Chest pain: Qualifiers: Chest pain type: unspecified Qualified Code(s): R07.9 - Chest pain, unspecified Code(s): R07.9 - Chest pain, unspecified Status: Acute Assessment and Plan: She had chest pain with tingling in the left arm. This is being evaluated by the hospitalist. (3) Abdominal pain: Qualifiers: Abdominal location: generalized Qualified Code(s): R10.84 - Generalized abdominal pain Code(s): R10.9 - Unspecified abdominal pain Status: Acute Assessment and Plan: This pain is about the same. The area she has her pain seems to correspond to the inferior aspect of her liver. However she may have other issues going on. CT does not show any evidence for colitis or appendicitis. She was vomiting pink stuff for the last month. She vomited more last night. For these reasons, gas welder apprentice to see the patient. (4) Polycystic kidney disease: Code(s): Q61.3 - Polycystic kidney, unspecified Status: Acute Assessment and Plan: The patient has polycystic kidneys. It does not seem to be any kidney stones, pain with urination, bloody urine or headaches. (5) HTN (hypertension): Onset Date: ~1983 Qualifiers: Hypertension type: essential hypertension Qualified Code(s): I10 - Essential (primary) hypertension Code(s): I10 - Essential (primary) hypertension Status: Acute Assessment and Plan: Her blood pressure is well controlled. (6) Anemia of chronic disease: Code(s): D63.8 - Anemia in other chronic diseases classified elsewhere Status: Chronic Assessment and Plan: Her hemoglobin is 8.8. On Epogen. (7) Gout: Qualifiers: Gout site: unspecified site Gout etiology: unspecified cause Chronicity: unspecified Qualified Code(s): M10.9 - Gout, unspecified Code(s): M10.9 - Gout, unspecified Status: Acute Assessment and Plan: This is quiescent. (8) Diabetes mellitus: Onset Date: ~1995 Qualifiers: Diabetes mellitus type: type 2 Diabetes mellitus long term care social worker insulin use: without fpc use Diabetes mellitus complication status: without complication Qualified Code(s): E11.9 - Type 2 diabetes mellitus without complications Code(s): E11.9 - Type 2 diabetes mellitus without complications Status: Acute Assessment and Plan: To be monitored. Subjective Date/time seen: 10/25/20 09:15 Interval history: Patient feels about the same. No fevers or chills. Eating well. On peritoneal dialysis and tolerating well. fluid is clear. She was seen at 8:45 a.m. She still has pain in the right middle nonant. Exam Narrative: Exam Narrative: WDWN in NAD skin no rash or subcu nodules head ncat lungs clear To auscultation cor reg no rub or gallop abd BS+ tender in the right paraumbilical area. soft ext no edema. Objective Data Vital Signs Vital Signs: Vital Signs - 24 hr 10/24/20 10:00 10/24/20 16:27 10/24/20 20:41 Temperature 35.9 C L 36.1 C L Pulse Rate 73 67 68 Respiratory Rate 24 H 16 Blood Pressure 99/47 L 112/43 L Pulse Oximetry 100 100 10/25/20 05:55 10/25/20 08:45 Temperature 35.9 C L Pulse Rate 80 80 Respiratory Rate 16 Blood Pressure 115/47 L Pulse Oximetry 100 Intake/Output Intake/Output: Intake & Output 10/22/20 10/23/20 10/24/20 10/25/20 23:59 23:59 23:59 23:59 Intake Total 570 770 640 Output Total 550 300 Balance 570 220
[2020-10-25 11:59] LABS: Glucose Point of Care 182 mg/dl (65-105)
--- NOTE | 2020-10-25 12:52 | PM.IMPN ---
Progress Note: A&P Assessment and Plan (1) Chest pain: Qualifiers: Chest pain type: unspecified Qualified Code(s): R07.9 - Chest pain, unspecified Code(s): R07.9 - Chest pain, unspecified Status: Acute Assessment and Plan: Patient's chest x-ray was negative for anything acute. Her EKG shows a normal sinus rhythm. Patient's troponin was negative. Her chest pain. Resolved. (2) Abdominal pain: Qualifiers: Abdominal location: generalized Qualified Code(s): R10.84 - Generalized abdominal pain Code(s): R10.9 - Unspecified abdominal pain Status: Acute Assessment and Plan: The patient is complaining lower quadrant abdominal pain which is tender. She does have extensive sigmoid colonic diverticulosis but no diverticulitis is seen at this time. Also is noted that the patient has a possible solid renal mass in the setting. On the CT scan it was read as impossible to exclude solid renal mass in the setting. A renal ultrasound has been ordered. She also has a cystic liver. Abdominal pain secondary to liver congestion or Gi bleed (3) Peritoneal dialysis catheter in place: Code(s): Z99.2 - Dependence on renal dialysis Status: Acute Assessment and Plan: Patient performs peritoneal dialysis every night. To Dr. Flowers has been consulted has seen the patient. (4) Hypothyroidism (acquired): Code(s): E03.9 - Hypothyroidism, unspecified Status: Acute Assessment and Plan: Check her thyroid level and continue with her levothyroxine. (5) HTN (hypertension): Onset Date: ~1983 Qualifiers: Hypertension type: essential hypertension Qualified Code(s): I10 - Essential (primary) hypertension Code(s): I10 - Essential (primary) hypertension Status: Acute Assessment and Plan: Continue with patient's home medications of lisinopril and Lasix. (6) Diabetes mellitus: Onset Date: ~1995 Qualifiers: Diabetes mellitus type: type 2 Diabetes mellitus nursing home insulin use: without terminal gauger use Diabetes mellitus complication status: without complication Qualified Code(s): E11.9 - Type 2 diabetes mellitus without complications Code(s): E11.9 - Type 2 diabetes mellitus without complications Status: Acute Assessment and Plan: I did order her Accu-Cheks AC and HS with sliding scale insulin. The patient stated that her blood sugars are typically in the 100s continue with metoprolol as well.. Continue with her home medications. She is on Actos (7) End-stage renal disease on peritoneal dialysis: Code(s): N18.6 - End stage renal disease; Z99.2 - Dependence on renal dialysis Status: Acute Assessment and Plan: Patient self administers peritoneal dialysis nightly. Continue with is on Renvela (8) Asthma: Qualifiers: Asthma severity: mild Asthma persistence: intermittent Asthma complication type: uncomplicated Qualified Code(s): J45.20 - Mild intermittent asthma, uncomplicated Code(s): J45.909 - Unspecified asthma, uncomplicated Status: Acute Assessment and Plan: Continue with home medications. The patient is on ProAir. (9) GI bleed: Code(s): K92.2 - Gastrointestinal hemorrhage, unspecified Status: Acute Assessment and Plan: The patient stated that the last time she coughed up some pink tinged sludge was approximately 3 days ago. The patient stated that she is supposed to follow-up with Dr. paiz. (10) Anemia of chronic disease: Code(s): D63.8 - Anemia in other chronic diseases classified elsewhere Status: Chronic Assessment and Plan: Patient's hemoglobin is 7.9 now. Her last known hemoglobin was 10.1 on 12/30/2019. Subjective Date/time seen: 10/25/20 12:52 Interval history: 64-year-old female patient who has been on peritoneal dialysis since she was 59 years old. She has polycystic kidney d
[2020-10-25 15:43] LABS: Glucose Point of Care 124 mg/dl (65-105)
[2020-10-25 16:24] VITALS: BP 112/58; PULSE 69; RESP 16; TEMP 36.4; O2SAT 100
[2020-10-25 20:01] LABS: Glucose Point of Care 161 mg/dl (65-105)
[2020-10-25 20:06] VITALS: BP 100/52; PULSE 65; RESP 16; TEMP 35.8; O2SAT 100
[2020-10-26] MEDS: ONDANSETRON INJ 4 MG/2 ML VIAL IV PUSH ×2 (05:29→12:19)
[2020-10-26 05:48] LABS: Hematocrit 28.7 % (37.0-47.0); Hemoglobin 9.2 g/dL (12.0-15.0); Mean Corpuscular HGB Conc 32.1 g/dl (32-36); Mean Corpuscular Hemoglobin 31.5 pg (26-34); Mean Corpuscular Volume 98.3 fl (80-100); Mean Platelet Volume 9.9 fl (7.4-10.4); Platelet Count Result 162 k/mm3 (150-375); Red Blood Count 2.92 M/mm3 (4.2-5.4); Red Cell Distribution Width 13.7 % (11.5-14.5); White Blood Count 7.2 K/mm3 (4.5-10.0)
[2020-10-26 05:55] VITALS: BP 127/45; PULSE 75; RESP 18; TEMP 36.2; O2SAT 95
[2020-10-26] MEDS: oxyCODONE/ACETAMINOPHEN (*CRX) 5-325 MG TABLET 1 TABLET PO (06:00)
[2020-10-26] MEDS: LEVOTHYROXINE SODIUM 12.5 MCG TABLET PO (06:00)
[2020-10-26 06:02] LABS: Albumin Level 3.6 g/dL (3.5-5.1); Anion Gap 10 mmol/L (8-16); Blood Urea Nitrogen 46 mg/dL (7-17); Calcium 9.5 mg/dL (8.4-10.2); Carbon Dioxide 27 mmol/L (22-30); Chloride 91 mmol/L (98-107); Glucose 126 mg/dL (65-105); Phosphorus 8.8 mg/dL (2.5-4.5); Potassium 3.9 mmol/L (3.4-5.0); Sodium 128 mmol/L (137-145)
[2020-10-26 06:22] LABS: Estimated CRCL calculation 4 ml/min; Estimated Glomerular Filt Rate 3
[2020-10-26 06:59] LABS: Glucose Point of Care 135 mg/dl (65-105)
[2020-10-26] MEDS: allopurinoL 150 MG TABLET PO (08:36)
[2020-10-26] MEDS: SEVELAMER CARBONATE 800 MG TABLET 1600 MG PO ×3 (08:36→16:58)
[2020-10-26] MEDS: lisinopriL 10 MG TABLET PO (08:36)
[2020-10-26] MEDS: PIOGLITAZONE HCL 30 MG TABLET PO (08:36)
[2020-10-26 08:37] VITALS: PULSE 75
[2020-10-26] MEDS: METOPROLOL SUCCINATE EXT REL 25 MG TABCR PO (08:37)
[2020-10-26] MEDS: PANTOPRAZOLE 40 MG TABLET PO (08:37)
[2020-10-26] MEDS: FUROSEMIDE 80 MG TABLET PO ×2 (08:37→16:58)
[2020-10-26] MEDS: VITAMIN B CMPLX/VIT C/FOLIC AC 1 CAPSULE 1 CAP PO (08:37)
[2020-10-26] MEDS: EPOETIN ALFA-EPBX 10,000 UNITS/ML VIAL 10000 UNITS SUB-Q (08:38)
[2020-10-26] MEDS: polyethylene glycoL 3350 17 GM POWD.PACK PO (08:42)
[2020-10-26 11:40] LABS: Glucose Point of Care 133 mg/dl (65-105)
--- NOTE | 2020-10-26 12:58 | PM.IMPN ---
Progress Note: A&P Assessment and Plan (1) Chest pain: Qualifiers: Chest pain type: unspecified Qualified Code(s): R07.9 - Chest pain, unspecified Code(s): R07.9 - Chest pain, unspecified Status: Acute Assessment and Plan: Patient's chest x-ray was negative for anything acute. Her EKG shows a normal sinus rhythm. Patient's troponin was negative. Her chest pain. Resolved. (2) Abdominal pain: Qualifiers: Abdominal location: generalized Qualified Code(s): R10.84 - Generalized abdominal pain Code(s): R10.9 - Unspecified abdominal pain Status: Acute Assessment and Plan: The patient is complaining lower quadrant abdominal pain which is tender. She does have extensive sigmoid colonic diverticulosis but no diverticulitis is seen at this time. Also is noted that the patient has a possible solid renal mass in the setting. On the CT scan it was read as impossible to exclude solid renal mass in the setting. A renal ultrasound has been ordered. She also has a cystic liver. Abdominal pain secondary to liver congestion or Gi bleed (3) Peritoneal dialysis catheter in place: Code(s): Z99.2 - Dependence on renal dialysis Status: Acute Assessment and Plan: Patient performs peritoneal dialysis every night. To Dr. Flowers has been consulted has seen the patient. (4) Hypothyroidism (acquired): Code(s): E03.9 - Hypothyroidism, unspecified Status: Acute Assessment and Plan: Check her thyroid level and continue with her levothyroxine. (5) HTN (hypertension): Onset Date: ~1983 Qualifiers: Hypertension type: essential hypertension Qualified Code(s): I10 - Essential (primary) hypertension Code(s): I10 - Essential (primary) hypertension Status: Acute Assessment and Plan: Continue with patient's home medications of lisinopril and Lasix. (6) Diabetes mellitus: Onset Date: ~1995 Qualifiers: Diabetes mellitus type: type 2 Diabetes mellitus custodial insulin use: without longwall headgate operator use Diabetes mellitus complication status: without complication Qualified Code(s): E11.9 - Type 2 diabetes mellitus without complications Code(s): E11.9 - Type 2 diabetes mellitus without complications Status: Acute Assessment and Plan: I did order her Accu-Cheks AC and HS with sliding scale insulin. The patient stated that her blood sugars are typically in the 100s continue with metoprolol as well.. Continue with her home medications. She is on Actos (7) End-stage renal disease on peritoneal dialysis: Code(s): N18.6 - End stage renal disease; Z99.2 - Dependence on renal dialysis Status: Acute Assessment and Plan: Patient self administers peritoneal dialysis nightly. Continue with is on Renvela (8) Asthma: Qualifiers: Asthma severity: mild Asthma persistence: intermittent Asthma complication type: uncomplicated Qualified Code(s): J45.20 - Mild intermittent asthma, uncomplicated Code(s): J45.909 - Unspecified asthma, uncomplicated Status: Acute Assessment and Plan: Continue with home medications. The patient is on ProAir. (9) GI bleed: Code(s): K92.2 - Gastrointestinal hemorrhage, unspecified Status: Acute Assessment and Plan: The patient stated that the last time she coughed up some pink tinged sludge was approximately 3 days ago. The patient stated that she is supposed to follow-up with Dr. paiz. (10) Anemia of chronic disease: Code(s): D63.8 - Anemia in other chronic diseases classified elsewhere Status: Chronic Assessment and Plan: Patient's hemoglobin is 9.2 Her last known hemoglobin was 10.1 on 12/30/2019. Subjective Date/time seen: 10/26/20 12:58 Interval history: 64-year-old female patient who has been on peritoneal dialysis since she was 59 years old. She has polycystic kidney disease
--- NOTE | 2020-10-26 15:15 | PM.PNNEP ---
Progress Note: A&P Assessment and Plan (1) End-stage renal disease on peritoneal dialysis: Code(s): N18.6 - End stage renal disease; Z99.2 - Dependence on renal dialysis Status: Chronic Assessment and Plan: continue nightly peritoneal dialysis while hospitalized follow electrolytes, volume status, and clearance (2) Chest pain: Qualifiers: Chest pain type: unspecified Qualified Code(s): R07.9 - Chest pain, unspecified Code(s): R07.9 - Chest pain, unspecified Status: Acute Assessment and Plan: resolved testing to date negative (3) Abdominal pain: Qualifiers: Abdominal location: generalized Qualified Code(s): R10.84 - Generalized abdominal pain Code(s): R10.9 - Unspecified abdominal pain Status: Acute Assessment and Plan: etiology unclear but unchanged imaging studies noted since also having nausea/vomiting, GI consulted (4) Polycystic kidney disease: Code(s): Q61.3 - Polycystic kidney, unspecified Status: Chronic Assessment and Plan: etiology of ESRD no change (5) HTN (hypertension): Onset Date: ~1983 Qualifiers: Hypertension type: essential hypertension Qualified Code(s): I10 - Essential (primary) hypertension Code(s): I10 - Essential (primary) hypertension Status: Acute Assessment and Plan: reasonable control follow hemodynamics (6) Anemia of chronic disease: Code(s): D63.8 - Anemia in other chronic diseases classified elsewhere Status: Chronic Assessment and Plan: due to ESRD Epogen as ordered while hospitalized follow trend of H/H (7) Diabetes mellitus: Onset Date: ~1995 Qualifiers: Diabetes mellitus complication status: without complication Diabetes mellitus mcc insulin use: without mcc use Diabetes mellitus type: type 2 Qualified Code(s): E11.9 - Type 2 diabetes mellitus without complications Code(s): E11.9 - Type 2 diabetes mellitus without complications Status: Acute Assessment and Plan: follow accuchecks glycemic control' Will continue to follow. Subjective Date/time seen: 10/26/20 15:15 Tolerated peritoneal dialysis treatment last night without any issues or problems; no acute distress noted at this time; noted plans for EGD tomorrow by GI; no events/issues overnight or earlier this AM. Exam Narrative: Exam Narrative: General: WD/WN female in NAD Heart: normal S1 and S2; no rub Lungs: clear to auscultation Abdomen: soft, mild TTP in RLQ; positive bowel sounds Extremities: no cyanosis or clubbing; trace edema Skin: warm and dry Objective Data Vital Signs Vital Signs: Vital Signs Temp Pulse Resp BP Pulse Ox 10/26/20 08:37 75 10/26/20 05:55 36.2 C L 75 18 127/45 L 95 10/25/20 20:06 35.8 C L 65 16 100/52 L 100 10/25/20 16:24 36.4 C L 69 16 112/58 L 100 Intake/Output Intake/Output: Intake & Output 10/23/20 10/24/20 10/25/20 10/26/20 23:59 23:59 23:59 23:59 Intake Total 359 501 7641 710 Output Total 550 300 75 Balance 707 333 8886 635 Meds/Results Medications: Active Medications Generic Name Dose Route Start Last Admin Trade Name Freq PRN Reason Stop Dose Admin Albuterol 1 puff 10/23/20 16:26 Albuterol Sulfate (*Sp) Aerosol 1 Puff INHALATION Q4H PRN Shortness Of Breath Allopurinol 150 mg 10/24/20 09:00 10/26/20 08:36 Allopurinol 150 Mg Tablet PO 150 mg DAILY [facility] Administration Cyclobenzaprine HCl 10 mg 10/23/20 16:26 Cyclobenzaprine Hcl 10 Mg Tablet PO DAILY PRN muscle spasm Dextrose 12.5 gm 10/23/20 16:01 Dextrose 50% 25 Gm/50 Ml Syringe IV PUSH PRN PRN Hypoglycemia Protocol Epoetin Odilon-epbx 10,000 units 10/23/20 17:12 10/26/20 08:38 Epoetin Odilon-Epbx 10,000 Units/Ml Vial SUB-Q 10,000 units MoWeFr@0900 [facility] Administration
--- NOTE | 2020-10-26 15:15 | P.PNNP_ITS ---
Progress Note: A&P Assessment and Plan (1) End-stage renal disease on peritoneal dialysis: Code(s): N18.6 - End stage renal disease; Z99.2 - Dependence on renal dialysis Status: Chronic Assessment and Plan: * continue nightly peritoneal dialysis while hospitalized * follow electrolytes, volume status, and clearance (2) Chest pain: Qualifiers: Chest pain type: unspecified Qualified Code(s): R07.9 - Chest pain, unspecified Code(s): R07.9 - Chest pain, unspecified Status: Acute Assessment and Plan: * resolved * testing to date negative (3) Abdominal pain: Qualifiers: Abdominal location: generalized Qualified Code(s): R10.84 - Generalized abdominal pain Code(s): R10.9 - Unspecified abdominal pain Status: Acute Assessment and Plan: * etiology unclear but unchanged * imaging studies noted * since also having nausea/vomiting, GI consulted (4) Polycystic kidney disease: Code(s): Q61.3 - Polycystic kidney, unspecified Status: Chronic Assessment and Plan: * etiology of ESRD * no change (5) HTN (hypertension): Onset Date: ~1983 Qualifiers: Hypertension type: essential hypertension Qualified Code(s): I10 - Essential (primary) hypertension Code(s): I10 - Essential (primary) hypertension Status: Acute Assessment and Plan: * reasonable control * follow hemodynamics (6) Anemia of chronic disease: Code(s): D63.8 - Anemia in other chronic diseases classified elsewhere Status: Chronic Assessment and Plan: * due to ESRD * Epogen as ordered while hospitalized * follow trend of H/H (7) Diabetes mellitus: Onset Date: ~1995 Qualifiers: Diabetes mellitus complication status: without complication Diabetes mellitus continuous churn buttermaker insulin use: without custodial use Diabetes mellitus type: type 2 Qualified Code(s): E11.9 - Type 2 diabetes mellitus without compli cations Code(s): E11.9 - Type 2 diabetes mellitus without complications Status: Acute Assessment and Plan: * follow accuchecks * glycemic control' Will continue to follow. Subjective Date/time seen: 10/26/20 15:15 Tolerated peritoneal dialysis treatment last night without any issues or problems; no acute distress noted at this time; noted plans for EGD tomorrow by GI; no events/issues overnight or earlier this AM. Exam Narrative: Exam Narrative: General: WD/WN female in NAD Heart: normal S1 and S2; no rub Lungs: clear to auscultation Abdomen: soft, mild TTP in RLQ; positive bowel sounds Extremities: no cyanosis or clubbing; trace edema Skin: warm and dry Objective Data Vital Signs Vital Signs: Vital Signs Temp Pulse Resp BP Pulse Ox 10/26/20 08:37 75 10/26/20 05:55 36.2 C L 75 18 127/45 L 95 10/25/20 20:06 35.8 C L 65 16 100/52 L 100 10/25/20 16:24 36.4 C L 69 16 112/58 L 100 Intake/Output Intake/Output: Intake & Output 10/23/20 10/24/20 10/25/20 10/26/20 23:59 23:59 23:59 23:59 Intake Total 004 748 2988 710 Output Total 550 300 75 Balance 502 087 1503 635 Meds/Results Medications: Active Medications Generic Name Dose Route Start Last Admin
[2020-10-26 16:00] VITALS: BP 113/42; PULSE 72; RESP 16; TEMP 36.1; O2SAT 100
[2020-10-26 16:36] LABS: Glucose Point of Care 159 mg/dl (65-105)
--- NOTE | 2020-10-26 17:18 | WPDGICN ---
Assessment and Plan Assessment and plan (1) Abdominal pain: Qualifiers: Abdominal location: generalized Qualified Code(s): R10.84 - Generalized abdominal pain Code(s): R10.9 - Unspecified abdominal pain Status: Acute Assessment and Plan: I wonder if could be from enlarged kidneys (she has PKD and now is on dialysis) but will assess tomorrow with EGD to check if ulcer, esophagitis, etc also mentioned pink tinged vomit (2) Anemia of chronic disease: Code(s): D63.8 - Anemia in other chronic diseases classified elsewhere Status: Chronic Assessment and Plan: continue to monitor from renal disease (3) Nausea and vomiting in adult: Code(s): R11.2 - Nausea with vomiting, unspecified Status: Acute Assessment and Plan: egd tomorrow antiemetics prn (4) End-stage renal disease on peritoneal dialysis: Code(s): N18.6 - End stage renal disease; Z99.2 - Dependence on renal dialysis Status: Chronic (5) Polycystic kidney disease: Code(s): Q61.3 - Polycystic kidney, unspecified Status: Chronic GI Consult Note Consult date/time: 10/26/20 17:18 Reason for consult: N/V, abdominal pain HPI: Shantelle Salinas is a 64 year old female with ESRD on peritoneal dialysis for 3.5 years due polycystic kidney disease. She says that for last 6 months has been experiencing intermittent pain in ruq/right flank and also nausea and vomiting, few times noted pink tinged sludge. Her last EGD years ago, Dr Chase has done her colonoscopy few years ago with diverticulosis and polyps removed. She had CT scan that was reviewed, no acute intra-abdominal findings, evidence of autosomal dominant polycystic kidney disease and difficult to exclude solid renal mass in the setting, also extensive sigmoid colonic diverticulosis. She also has chronic anemia and hb 8.8. Review of Systems Constitutional: Constitutional: Denies chills Eyes: Eyes: Denies blurry vision ENT: Reports system reviewed and no additional complaints, except as documented Cardiovascular: Cardiovascular: Denies chest pain Respiratory: Respiratory: Reports no additional respiratory complaints Gastrointestinal: Gastrointestinal: Reports abdominal pain, Reports nausea and Reports vomiting Genitourinary: Comments: on dialysis Musculoskeletal: Musculoskeletal: Denies neck pain Integumentary/Breasts: Skin/Breast: Denies dry skin Neurologic: Reports system reviewed and no additional complaints, except as documented Psychiatric: Psychiatric: Denies behavioral changes PMFSH Past Medical History Medical History (Updated 10/26/20 @ 17:25 by Arash Ferguson MD) Anemia of chronic disease Asthma Chronic back pain Diabetes mellitus (~1995) End-stage renal disease on peritoneal dialysis GERD (gastroesophageal reflux disease) Gout HTN (hypertension) (~1983) Hypothyroidism (acquired) Nausea and vomiting in adult Peritoneal dialysis status (~06/2016) Polycystic kidney disease Vitamin D deficiency Surgical History Surgical History H/O colonoscopy (~02/23/15) H/O hernia repair 06/1995, 11/2019 History of partial hysterectomy (~11/1993) History of tonsillectomy (~06/1959) History of tubal ligation (~06/1976) Hx of appendectomy (~01/1980) Hx of cholecystectomy (~04/1995) Hx of umbilical hernia repair (~06/1979) Family History Family History Mother Family history of diabetes mellitus in first degree relative Polycystic kidney disease Heart disease Hypertension Father Family history of lung cancer Sibling Polycystic kidney disease Sibling Diabetes mellitus Heart disease Other Malignant neoplasm of prostate Social History Social History Social History: Pt does not drink caffeine. 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
[2020-10-26 20:04] LABS: Glucose Point of Care 210 mg/dl (65-105)
[2020-10-26 20:08] VITALS: BP 110/58; PULSE 79; RESP 14; TEMP 36.9; O2SAT 100
[2020-10-27] VITALS (8 sets, daily range): BP systolic 88–126; BP diastolic 44–54; PULSE 66–84; RESP 16–19; TEMP 36.1–36.7; O2SAT 98–100
[2020-10-27] MEDS: ONDANSETRON INJ 4 MG/2 ML VIAL IV PUSH ×2 (02:39→12:36)
[2020-10-27] MEDS: LEVOTHYROXINE SODIUM 12.5 MCG TABLET PO (05:53)
[2020-10-27 08:00] LABS: Glucose Point of Care 132 mg/dl (65-105)
[2020-10-27] MEDS: METOPROLOL SUCCINATE EXT REL 25 MG TABCR PO (08:26)
--- NOTE | 2020-10-27 09:31 | PM.PNNEP ---
Progress Note: A&P Assessment and Plan (1) End-stage renal disease on peritoneal dialysis: Code(s): N18.6 - End stage renal disease; Z99.2 - Dependence on renal dialysis Status: Chronic Assessment and Plan: continue nightly peritoneal dialysis while hospitalized follow electrolytes, volume status, and clearance (2) Chest pain: Qualifiers: Chest pain type: unspecified Qualified Code(s): R07.9 - Chest pain, unspecified Code(s): R07.9 - Chest pain, unspecified Status: Acute Assessment and Plan: resolved testing to date negative (3) Abdominal pain: Qualifiers: Abdominal location: generalized Qualified Code(s): R10.84 - Generalized abdominal pain Code(s): R10.9 - Unspecified abdominal pain Status: Acute Assessment and Plan: etiology unclear but unchanged imaging studies noted - due to polycystic kidney disease +/- liver cysts(?) EGD today (4) Polycystic kidney disease: Code(s): Q61.3 - Polycystic kidney, unspecified Status: Chronic Assessment and Plan: etiology of ESRD no change (5) HTN (hypertension): Onset Date: ~1983 Qualifiers: Hypertension type: essential hypertension Qualified Code(s): I10 - Essential (primary) hypertension Code(s): I10 - Essential (primary) hypertension Status: Acute Assessment and Plan: reasonable control follow hemodynamics (6) Anemia of chronic disease: Code(s): D63.8 - Anemia in other chronic diseases classified elsewhere Status: Chronic Assessment and Plan: due to ESRD Epogen as ordered while hospitalized follow trend of H/H (7) Diabetes mellitus: Onset Date: ~1995 Qualifiers: Diabetes mellitus complication status: without complication Diabetes mellitus alf insulin use: without intermediate project manager use Diabetes mellitus type: type 2 Qualified Code(s): E11.9 - Type 2 diabetes mellitus without complications Code(s): E11.9 - Type 2 diabetes mellitus without complications Status: Acute Assessment and Plan: follow accuchecks glycemic control Will continue to follow. Subjective Date/time seen: 10/27/20 9:31 No issues or problems with peritoneal dialysis treatment overnight; due for EGD later this morning; no other acute complaints other than persistent right sided abdominal pain that seems to wax and wane. Exam Narrative: Exam Narrative: General: WD/WN female in NAD Heart: normal S1 and S2; no rub Lungs: clear to auscultation Abdomen: soft, mild TTP in RQ; positive bowel sounds Extremities: no cyanosis or clubbing; trace edema Skin: warm and dry Objective Data Vital Signs Vital Signs: Vital Signs Temp Pulse Resp BP Pulse Ox 10/27/20 08:26 78 10/27/20 06:00 36.7 C 70 16 108/54 L 98 10/26/20 20:08 36.9 C 79 14 110/58 L 100 10/26/20 16:00 36.1 C L 72 16 113/42 L 100 Intake/Output Intake/Output: Intake & Output 10/24/20 10/25/20 10/26/20 10/27/20 23:59 23:59 23:59 23:59 Intake Total 770 1620 1070 100 Output Total 550 300 175 100 Balance 220 1320 895 0 Meds/Results Medications: Active Medications Generic Name Dose Route Start Last Admin Trade Name Freq PRN Reason Stop Dose Admin Albuterol 1 puff 10/23/20 16:26 Albuterol Sulfate (*Sp) Aerosol 1 Puff INHALATION Q4H PRN Shortness Of Breath Allopurinol 150 mg 10/24/20 09:00 10/26/20 08:36 Allopurinol 150 Mg Tablet PO 150 mg DAILY [facility] Administration Cyclobenzaprine HCl 10 mg 10/23/20 16:26 Cyclobenzaprine Hcl 10 Mg Tablet PO DAILY PRN muscle spasm Dextrose 12.5 gm 10/23/20 16:01 Dextrose 50% 25 Gm/50 Ml Syringe IV PUSH PRN PRN Hypoglycemia Protocol Epoetin Odilon-epbx 10,000 units 10/23/20 17:12 10/26/20 08:38 Epoetin Odilon-Epbx 10,000 Units/Ml Vial SUB-Q 10,000 units MoWeFr@0900 [facility] Admi
[2020-10-27 10:06] LABS: Hematocrit 29.3 % (37.0-47.0); Hemoglobin 9.3 g/dL (12.0-15.0); Mean Corpuscular HGB Conc 31.7 g/dl (32-36); Mean Corpuscular Volume 100.7 fl (80-100); Mean Platelet Volume 10.2 fl (7.4-10.4); Platelet Count Result 152 k/mm3 (150-375); Red Blood Count 2.91 M/mm3 (4.2-5.4); Red Cell Distribution Width 14.1 % (11.5-14.5); White Blood Count 7.4 K/mm3 (4.5-10.0)
[2020-10-27 10:41] LABS: Albumin Level 3.5 g/dL (3.5-5.1); Anion Gap 12 mmol/L (8-16); Blood Urea Nitrogen 47 mg/dL (7-17); Calcium 9.2 mg/dL (8.4-10.2); Carbon Dioxide 29 mmol/L (22-30); Chloride 90 mmol/L (98-107); Estimated CRCL calculation 4 ml/min; Estimated Glomerular Filt Rate 3; Glucose 124 mg/dL (65-105); Magnesium 2.7 mg/dL (1.6-2.3); Phosphorus 8.6 mg/dL (2.5-4.5); Sodium 131 mmol/L (137-145)
[2020-10-27 11:12] LABS: Glucose Point of Care 115 mg/dl (65-105)
[2020-10-27] MEDS: SODIUM CHLORIDE 0.9% IV 500 ML 10 ML IV CONT (11:15)
--- NOTE | 2020-10-27 11:24 | WPDANESEPPF ---
Anes - Initial Pre Proc Eval Procedure: Operation Date: 10/27/20 12:15 Proposed Procedures p Esophagogastroduodenoscopy - Arash Ferguson MD Date/Time: 10/27/20 11:24 Surgeon: Dorothy Hickey MD Pre Op Diagnosis: ABDOMINAL PAIN Patient Data Age: 64 Gender: F Height: 5 ft 3 in Weight: 90.2 kg Last Vital Signs Temp 97.7 F 10/27/20 11:05 Pulse 66 10/27/20 11:05 Resp 18 10/27/20 11:05 BP 126/52 L 10/27/20 11:05 Pulse Ox 100 10/27/20 11:05 Allergies Allergy/AdvReac Type Severity Reaction Status Date / Time azithromycin Allergy Severe Hives / Verified 10/27/20 11:03 Red Face cephalexin Allergy Severe Hives / Verified 10/27/20 11:03 Red Face Cephalosporins Allergy Severe Hives / Verified 10/27/20 11:03 Red Face hydrocodone Allergy Severe Hives / Verified 10/27/20 11:03 Red Face Penicillins Allergy Intermediate Hives / Verified 10/27/20 11:03 Red Face tetracycline Allergy Unknown Rash Verified 10/27/20 11:03 aspirin AdvReac Severe Ulcers Verified 10/27/20 11:03 codeine AdvReac Intermediate Hallucinati Verified 10/27/20 11:16 ng diazepam AdvReac Intermediate Confusion Verified 10/27/20 11:03 fentanyl AdvReac Intermediate Nausea Verified 10/27/20 11:03 orphenadrine AdvReac Intermediate Other Verified 10/27/20 11:03 Home Medications Medication Instructions Recorded Confirmed Type ondansetron HCl [Zofran] 4 mg PO Q6H PRN #10 tablet 07/23/19 10/23/20 Rx albuterol sulfate 90 mcg/actuation 1 puff INHALATION Q4H PRN 03/25/20 10/23/20 History aerosol inhaler furosemide 80 mg tablet 80 mg PO BID 03/25/20 10/23/20 History metoprolol succinate 25 mg 25 mg PO DAILY #90 tablet 03/25/20 10/23/20 Rx tablet,extended release 24 hr omeprazole 20 mg capsule,delayed 20 mg PO DAILY #90 cap 03/25/20 10/23/20 Rx release vitamin B complex-vitamin C-folic 1 tablet PO DAILY 03/25/20 10/23/20 History acid 0.8 mg tablet allopurinol 300 mg tablet 150 mg PO DAILY #90 tablet 05/26/20 10/23/20 Rx levothyroxine 25 mcg tablet 12.5 mcg PO DAILY #135 tablet 05/26/20 10/23/20 Rx lisinopril 10 mg tablet 10 mg PO DAILY #90 tablet 05/26/20 10/23/20 Rx pioglitazone 30 mg tablet 30 mg PO DAILY #90 tablet 06/08/20 10/23/20 Rx cyclobenzaprine 10 mg tablet 10 mg PO DAILY PRN #30 tablet 07/03/20 10/23/20 Rx sevelamer carbonate 1,600 mg PO TIDWM 10/23/20 10/23/20 History Laboratory Tests 10/26/20 10/26/20 10/26/20 11:34 16:28 19:57 WBC RBC Hgb Hct MCV MCH MCHC RDW Plt Count MPV Sodium Potassium Chloride Carbon Dioxide Anion Gap BUN Creatinine Estim Creat Clear Calc Estimated GFR Glucose POC Capillary Glucose 133 mg/dl H mg/dl 159 mg/dl H mg/dl 210 mg/dl H mg/dl (65-105) (65-105) (65-105) Calcium Phosphorus Magnesium Albumin 10/27/20 10/27/20 10/27/20 07:54 09:40 09:40 WBC 7.4 K/mm3 K/mm3 (4.5-10.0) RBC 2.91 M/mm3 L M/mm3 (4.2-5.4) Hgb 9.3 g/dL L g/dL (12.0-15.0) Hct 29.3 % L % (37.0-47.0) MCV 100.7 fl H fl (80-100) MCH 32.0 pg pg (26-34) MCHC 31.7 g/dl L g/dl (32-36) RDW 14.1 % % (11.5-14.5) Plt Count 152 k/mm3 k/mm3 (150-375) MPV 10.2 fl fl (7.4-10.4) Sodium 131 mmol/L L mmol/L (137-145) Potassium 4.0 mmol/L mmol/L (3.4-5.0) Chloride 90 mmol/L L mmol/L (98-107) Carbon Dioxide 29 mmol/L mmol/L (22-30) Anion Gap 12 mmol/L mmol/L (8-16) BUN 47 mg/dL H mg/dL (7-17) Creatinine 14.50 mg/dL H mg/dL (0.7-1.0) Estim Creat Clear Calc 4 ml/min ml/min Estimated G
[2020-10-27 12:14] LABS: Glucose Point of Care 116 mg/dl (65-105)
--- NOTE | 2020-10-27 12:27 | SUR.PHASEII ---
Pt reported having a 7 out of 10 pain to right lower abd, Chanelle ARREDONDO, that took report on pt was informed of this.
[2020-10-27] MEDS: oxyCODONE/ACETAMINOPHEN (*CRX) 5-325 MG TABLET 1 TABLET PO ×2 (12:36→20:21)
[2020-10-27] MEDS: allopurinoL 150 MG TABLET PO (12:37)
[2020-10-27] MEDS: FUROSEMIDE 80 MG TABLET PO ×2 (12:37→16:45)
[2020-10-27] MEDS: PIOGLITAZONE HCL 30 MG TABLET PO (12:37)
[2020-10-27] MEDS: PANTOPRAZOLE 40 MG TABLET PO (12:37)
[2020-10-27] MEDS: SEVELAMER CARBONATE 800 MG TABLET 1600 MG PO ×2 (12:37→16:45)
[2020-10-27] MEDS: VITAMIN B CMPLX/VIT C/FOLIC AC 1 CAPSULE 1 CAP PO (12:37)
[2020-10-27] MEDS: lisinopriL 10 MG TABLET PO (12:37)
--- NOTE | 2020-10-27 15:13 | PM.IMPN ---
Progress Note: A&P Assessment and Plan (1) Chest pain: Qualifiers: Chest pain type: unspecified Qualified Code(s): R07.9 - Chest pain, unspecified Code(s): R07.9 - Chest pain, unspecified Status: Acute Assessment and Plan: Patient's chest x-ray was negative for anything acute. Her EKG shows a normal sinus rhythm. Patient's troponin was negative. Her chest pain. Resolved. (2) Abdominal pain: Qualifiers: Abdominal location: generalized Qualified Code(s): R10.84 - Generalized abdominal pain Code(s): R10.9 - Unspecified abdominal pain Status: Acute Assessment and Plan: The patient is complaining lower quadrant abdominal pain which is tender. She does have extensive sigmoid colonic diverticulosis but no diverticulitis is seen at this time. Also is noted that the patient has a possible solid renal mass in the setting. On the CT scan it was read as impossible to exclude solid renal mass in the setting. A renal ultrasound has been ordered. She also has a cystic liver. Abdominal pain secondary to liver congestion or Gi bleed 10/27/20 15:14 patient is a 64-year-old female with end-stage renal disease secondary to polycystic kidney disease on peritoneal dialysis presented emergency depart with complaint right upper quadrant and left flank abdominal pain had been persisting for sometime but now is getting worse, patient was seen by GI and had EGD today which showed mild gastritis according to GI this findings are not enough to attribute to her abdominal pain suspect most likely secondary to peritoneal dialysis, and large hepatic renal cyst, recommending continue diet and will monitor, patient will have her nightly dialysis, will continue to monitor reassess tomorrow and plan possibly discharge (3) Peritoneal dialysis catheter in place: Code(s): Z99.2 - Dependence on renal dialysis Status: Acute Assessment and Plan: Patient performs peritoneal dialysis every night. To Dr. Flowers has been consulted has seen the patient. (4) Hypothyroidism (acquired): Code(s): E03.9 - Hypothyroidism, unspecified Status: Acute Assessment and Plan: Check her thyroid level and continue with her levothyroxine. (5) HTN (hypertension): Onset Date: ~1983 Qualifiers: Hypertension type: essential hypertension Qualified Code(s): I10 - Essential (primary) hypertension Code(s): I10 - Essential (primary) hypertension Status: Acute Assessment and Plan: Continue with patient's home medications of lisinopril and Lasix. (6) Diabetes mellitus: Onset Date: ~1995 Qualifiers: Diabetes mellitus type: type 2 Diabetes mellitus shelter insulin use: without predatory animal exterminator use Diabetes mellitus complication status: without complication Qualified Code(s): E11.9 - Type 2 diabetes mellitus without complications Code(s): E11.9 - Type 2 diabetes mellitus without complications Status: Acute Assessment and Plan: I did order her Accu-Cheks AC and HS with sliding scale insulin. The patient stated that her blood sugars are typically in the 100s continue with metoprolol as well.. Continue with her home medications. She is on Actos (7) End-stage renal disease on peritoneal dialysis: Code(s): N18.6 - End stage renal disease; Z99.2 - Dependence on renal dialysis Status: Chronic Assessment and Plan: Patient self administers peritoneal dialysis nightly. Continue with is on Renvela (8) Asthma: Qualifiers: Asthma severity: mild Asthma persistence: intermittent Asthma complication type: uncomplicated Qualified Code(s): J45.20 - Mild intermittent asthma, uncomplicated Code(s): J45.909 - Unspecified asthma, uncomplicated Status: Acute Assessment and Plan: Continue with home medications. The patient is on ProAir. (9) GI bleed: Code(s): K92.2 - Gastrointestinal
[2020-10-27 17:36] LABS: Glucose Point of Care 128 mg/dl (65-105)
[2020-10-27 20:08] LABS: Glucose Point of Care 169 mg/dl (65-105)
[2020-10-28] MEDS: ONDANSETRON INJ 4 MG/2 ML VIAL IV PUSH ×2 (03:58→07:53)
[2020-10-28 04:06] VITALS: BP 117/61; PULSE 70; RESP 18; TEMP 36.5; O2SAT 100
[2020-10-28 05:36] LABS: Hematocrit 26.8 % (37.0-47.0); Hemoglobin 8.6 g/dL (12.0-15.0); Mean Corpuscular HGB Conc 32.1 g/dl (32-36); Mean Corpuscular Hemoglobin 32.2 pg (26-34); Mean Corpuscular Volume 100.4 fl (80-100); Mean Platelet Volume 10.2 fl (7.4-10.4); Platelet Count Result 138 k/mm3 (150-375); Red Blood Count 2.67 M/mm3 (4.2-5.4); Red Cell Distribution Width 14.1 % (11.5-14.5); White Blood Count 6.6 K/mm3 (4.5-10.0)
[2020-10-28 05:54] LABS: Albumin Level 3.2 g/dL (3.5-5.1); Anion Gap 10 mmol/L (8-16); Blood Urea Nitrogen 45 mg/dL (7-17); Calcium 9.3 mg/dL (8.4-10.2); Carbon Dioxide 30 mmol/L (22-30); Chloride 90 mmol/L (98-107); Glucose 127 mg/dL (65-105); Phosphorus 8.9 mg/dL (2.5-4.5); Sodium 130 mmol/L (137-145)
[2020-10-28 06:00] LABS: Estimated CRCL calculation 4 ml/min; Estimated Glomerular Filt Rate 3
[2020-10-28] MEDS: LEVOTHYROXINE SODIUM 12.5 MCG TABLET PO (06:16)
[2020-10-28 07:50] LABS: Glucose Point of Care 136 mg/dl (65-105)
[2020-10-28] MEDS: oxyCODONE/ACETAMINOPHEN (*CRX) 5-325 MG TABLET 1 TABLET PO (07:53)
[2020-10-28] MEDS: polyethylene glycoL 3350 17 GM POWD.PACK PO (07:56)
[2020-10-28 08:00] VITALS: PULSE 86
[2020-10-28] MEDS: FUROSEMIDE 80 MG TABLET PO (08:00)
[2020-10-28] MEDS: lisinopriL 10 MG TABLET PO (08:00)
[2020-10-28] MEDS: SEVELAMER CARBONATE 800 MG TABLET 1600 MG PO ×2 (08:00→12:51)
[2020-10-28] MEDS: PANTOPRAZOLE 40 MG TABLET PO (08:00)
[2020-10-28] MEDS: METOPROLOL SUCCINATE EXT REL 25 MG TABCR PO (08:00)
[2020-10-28] MEDS: VITAMIN B CMPLX/VIT C/FOLIC AC 1 CAPSULE 1 CAP PO (08:00)
[2020-10-28] MEDS: PIOGLITAZONE HCL 30 MG TABLET PO (08:00)
[2020-10-28] MEDS: allopurinoL 150 MG TABLET PO (08:00)
[2020-10-28 08:08] VITALS: BP 117/61; PULSE 70; RESP 18; TEMP 36.5
[2020-10-28] MEDS: EPOETIN ALFA-EPBX 10,000 UNITS/ML VIAL 10000 UNITS SUB-Q (08:08)
--- NOTE | 2020-10-28 10:22 | WPDANESPN ---
Anes - Prog Note Post-Op Date/Time: 10/28/20 10:22 Cardiovascular status: normal Respiratory status: normal Airway patency: baseline Mental status: baseline Post-Op hydration status: normal Vital Signs: Last Vital Signs Temp 36.5 C 10/28/20 08:08 Pulse 70 10/28/20 08:08 Resp 18 10/28/20 08:08 BP 117/61 10/28/20 08:08 Pulse Ox 100 10/28/20 04:06 Pain Score (VAS): 0 I/O: Intake & Output 10/27/20 10/28/20 10/28/20 23:59 07:59 15:59 Intake Total 720 300 300 Output Total 200 1609 Balance 720 100 -1309 Laboratory Tests 10/28/20 05:18 10/28/20 05:18 10/27/20 10/27/20 10/27/20 09:40 11:09 12:11 WBC RBC Hgb Hct MCV MCH MCHC RDW Plt Count MPV Sodium 131 L Potassium 4.0 Chloride 90 L Carbon Dioxide 29 Anion Gap 12 BUN 47 H Creatinine 14.50 H Estim Creat Clear Calc 4 Estimated GFR 3 L Glucose 124 H POC Capillary Glucose 115 H 116 H Calcium 9.2 Phosphorus 8.6 H Magnesium 2.7 H Albumin 3.5 10/27/20 10/27/20 10/28/20 17:30 20:02 05:18 WBC 6.6 RBC 2.67 L Hgb 8.6 L Hct 26.8 L MCV 100.4 H MCH 32.2 MCHC 32.1 RDW 14.1 Plt Count 138 L MPV 10.2 Sodium Potassium Chloride Carbon Dioxide Anion Gap BUN Creatinine Estim Creat Clear Calc Estimated GFR Glucose POC Capillary Glucose 128 H 169 H Calcium Phosphorus Magnesium Albumin 10/28/20 10/28/20 05:18 07:44 WBC RBC Hgb Hct MCV MCH MCHC RDW Plt Count MPV Sodium 130 L Potassium 4.0 Chloride 90 L Carbon Dioxide 30 Anion Gap 10 BUN 45 H Creatinine 14.60 H Estim Creat Clear Calc 4 Estimated GFR 3 L Glucose 127 H POC Capillary Glucose 136 H Calcium 9.3 Phosphorus 8.9 H Magnesium Albumin 3.2 L Microbiology 10/23/20 15:30 Peritoneal Fluid Gram Stain - Final 10/23/20 15:30 Peritoneal Fluid Anaerobic Culture - Preliminary 10/23/20 15:30 Peritoneal Fluid Aerobic Culture - Final Post-procedural complaints: none Patient Feedback: Patient satisfied with anesthetic care.
[2020-10-28 12:14] LABS: Glucose Point of Care 117 mg/dl (65-105)
--- NOTE | 2020-10-28 12:25 | PM.DS ---
DS: Admitting Diagnosis Admitting Diagnosis Admitting Diagnosis: Chief Complaint: Chest pain with abdominal pain DS: Discharge Diagnosis Discharge Diagnosis (1) Chest pain: Qualifiers: Chest pain type: unspecified Qualified Code(s): R07.9 - Chest pain, unspecified Code(s): R07.9 - Chest pain, unspecified Status: Acute Assessment and Plan: Patient's chest x-ray was negative for anything acute. Her EKG shows a normal sinus rhythm. Patient's troponin was negative. Her chest pain. Resolved. (2) Abdominal pain: Qualifiers: Abdominal location: generalized Qualified Code(s): R10.84 - Generalized abdominal pain Code(s): R10.9 - Unspecified abdominal pain Status: Acute Assessment and Plan: The patient is complaining lower quadrant abdominal pain which is tender. She does have extensive sigmoid colonic diverticulosis but no diverticulitis is seen at this time. Also is noted that the patient has a possible solid renal mass in the setting. On the CT scan it was read as impossible to exclude solid renal mass in the setting. A renal ultrasound has been ordered. She also has a cystic liver. Abdominal pain secondary to liver congestion or Gi bleed 10/27/20 15:14 patient is a 64-year-old female with end-stage renal disease secondary to polycystic kidney disease on peritoneal dialysis presented emergency depart with complaint right upper quadrant and left flank abdominal pain had been persisting for sometime but now is getting worse, patient was seen by GI and had EGD today which showed mild gastritis according to GI this findings are not enough to attribute to her abdominal pain suspect most likely secondary to peritoneal dialysis, and large hepatic renal cyst, recommending continue diet and will monitor, patient will have her nightly dialysis, will continue to monitor reassess tomorrow and plan possibly discharge (3) Peritoneal dialysis catheter in place: Code(s): Z99.2 - Dependence on renal dialysis Status: Acute Assessment and Plan: Patient performs peritoneal dialysis every night. To Dr. Flowers has been consulted has seen the patient. (4) Hypothyroidism (acquired): Code(s): E03.9 - Hypothyroidism, unspecified Status: Acute Assessment and Plan: Check her thyroid level and continue with her levothyroxine. (5) HTN (hypertension): Onset Date: ~1983 Qualifiers: Hypertension type: essential hypertension Qualified Code(s): I10 - Essential (primary) hypertension Code(s): I10 - Essential (primary) hypertension Status: Acute Assessment and Plan: Continue with patient's home medications of lisinopril and Lasix. (6) Diabetes mellitus: Onset Date: ~1995 Qualifiers: Diabetes mellitus type: type 2 Diabetes mellitus snf insulin use: without electromechanical engineer use Diabetes mellitus complication status: without complication Qualified Code(s): E11.9 - Type 2 diabetes mellitus without complications Code(s): E11.9 - Type 2 diabetes mellitus without complications Status: Acute Assessment and Plan: I did order her Accu-Cheks AC and HS with sliding scale insulin. The patient stated that her blood sugars are typically in the 100s continue with metoprolol as well.. Continue with her home medications. She is on Actos (7) End-stage renal disease on peritoneal dialysis: Code(s): N18.6 - End stage renal disease; Z99.2 - Dependence on renal dialysis Status: Chronic Assessment and Plan: Patient self administers peritoneal dialysis nightly. Continue with is on Renvela (8) Asthma: Qualifiers: Asthma severity: mild Asthma persistence: intermittent Asthma complication type: uncomplicated Qualified Code(s): J45.20 - Mild intermittent asthma, uncomplicated Code(s): J45.909 - Unspecified asthma, uncomplicated Status: Acute Assessment and P
--- NOTE | 2020-10-28 12:58 | PM.PNNEP ---
Progress Note: A&P Assessment and Plan (1) End-stage renal disease on peritoneal dialysis: Code(s): N18.6 - End stage renal disease; Z99.2 - Dependence on renal dialysis Status: Chronic Assessment and Plan: continue nightly peritoneal dialysis while hospitalized follow electrolytes, volume status, and clearance (2) Chest pain: Qualifiers: Chest pain type: unspecified Qualified Code(s): R07.9 - Chest pain, unspecified Code(s): R07.9 - Chest pain, unspecified Status: Acute Assessment and Plan: resolved testing to date negative (3) Abdominal pain: Qualifiers: Abdominal location: generalized Qualified Code(s): R10.84 - Generalized abdominal pain Code(s): R10.9 - Unspecified abdominal pain Status: Acute Assessment and Plan: etiology unclear but unchanged imaging studies noted EGD negative suspect related to changes due to PCKD (cysts in kidney as well as on liver) (4) Polycystic kidney disease: Code(s): Q61.3 - Polycystic kidney, unspecified Status: Chronic Assessment and Plan: etiology of ESRD no change (5) HTN (hypertension): Onset Date: ~1983 Qualifiers: Hypertension type: essential hypertension Qualified Code(s): I10 - Essential (primary) hypertension Code(s): I10 - Essential (primary) hypertension Status: Acute Assessment and Plan: reasonable control follow hemodynamics (6) Anemia of chronic disease: Code(s): D63.8 - Anemia in other chronic diseases classified elsewhere Status: Chronic Assessment and Plan: due to ESRD Epogen as ordered while hospitalized follow trend of H/H (7) Diabetes mellitus: Onset Date: ~1995 Qualifiers: Diabetes mellitus complication status: without complication Diabetes mellitus termite control representative insulin use: without fdc use Diabetes mellitus type: type 2 Qualified Code(s): E11.9 - Type 2 diabetes mellitus without complications Code(s): E11.9 - Type 2 diabetes mellitus without complications Status: Acute Assessment and Plan: follow accuchecks glycemic control Will continue to follow. Subjective Date/time seen: 10/28/20 12:59 Tolerated CCPD treatment overnight without any issues or problems; still having the right sided abdominal pain at this time which continues to wax/wane in general; EGD yesterday with results noted; no events overnight or earlier this AM. Exam Narrative: Exam Narrative: General: WD/WN female in NAD Heart: normal S1 and S2; no rub Lungs: clear to auscultation Abdomen: soft, mild TTP in right quadrant; positive bowel sounds Extremities: no cyanosis or clubbing; trace edema Skin: warm and intact Objective Data Vital Signs Vital Signs: Vital Signs Temp Pulse Resp BP Pulse Ox 10/28/20 08:08 36.5 C 70 18 117/61 10/28/20 08:00 86 10/28/20 04:06 36.5 C 70 18 117/61 100 10/27/20 20:02 36.1 C L 69 16 100/52 L 98 10/27/20 19:40 36.5 C 70 16 96/44 L Intake/Output Intake/Output: Intake & Output 10/25/20 10/26/20 10/27/20 10/28/20 23:59 23:59 23:59 23:59 Intake Total 1620 1070 1060 625 Output Total 300 527 474 3270 Balance 1320 895 960 -1184 Meds/Results Medications: Active Medications Generic Name Dose Route Start Last Admin Trade Name Freq PRN Reason Stop Dose Admin Albuterol 1 puff 10/23/20 16:26 Albuterol Sulfate (*Sp) Aerosol 1 Puff INHALATION Q4H PRN Shortness Of Breath Allopurinol 150 mg 10/24/20 09:00 10/28/20 08:00 Allopurinol 150 Mg Tablet PO 150 mg DAILY CONSTANZA Administration Cyclobenzaprine HCl 10 mg 10/23/20 16:26 Cyclobenzaprine Hcl 10 Mg Tablet PO DAILY PRN muscle spasm Dextrose 12.5 gm 10/23/20 16:01 Dextrose 50% 25 Gm/50 Ml Syringe IV PUSH PRN PRN Hypoglycemia Protocol Epoetin Odilon-epbx 10,000 units
--- NOTE | 2020-10-28 15:49 | WPDGIPROGNO ---
Progress Note: A&P Assessment and Plan (1) Nausea and vomiting in adult: Code(s): R11.2 - Nausea with vomiting, unspecified Status: Acute Assessment and Plan: improved, she is going home today egd yesterday, only mild gastritis (2) Anemia of chronic disease: Code(s): D63.8 - Anemia in other chronic diseases classified elsewhere Status: Chronic Assessment and Plan: stable, history of renal disease (3) Peritoneal dialysis catheter in place: Code(s): Z99.2 - Dependence on renal dialysis Status: Acute (4) Abdominal pain: Qualifiers: Abdominal location: generalized Qualified Code(s): R10.84 - Generalized abdominal pain Code(s): R10.9 - Unspecified abdominal pain Status: Acute Assessment and Plan: improved, most likely from underlying renal condition with large cysts in kidney and liver (5) Gastritis: Code(s): K29.70 - Gastritis, unspecified, without bleeding Status: Acute Assessment and Plan: only mild finding Subjective Date/time seen: 10/28/20 13:00 Interval history: feeling better today and plan is to go home Review of Systems Review of Systems: All systems reviewed & are unremarkable except as noted in HPI and below Exam Const: General: comfortable and no acute distress HENMT: General nose exam: Normal nares present Eyes: General: appearance normal, both eyes and all related structures Neck: Neck: supple Resp: Auscultation: clear to auscultation bilaterally Cardio: Rate: regular rate GI: GI Palp: Yes Soft to palpation, Yes Tenderness to palpation present (GI) (les tender today rlq) and No Guarding due to palpation present (GI) Auscultation: normal bowel sounds Other: peritoneal dialysis in place Skin: General skin exam: normal color Neuro: Speech: normal speech Motor exam (neuro): Normal motor muscle tone present throughout Extrem: General: normal to inspection Psych: Mental Status: mental status grossly normal Objective Data Vital Signs Vital Signs: Vital Signs - 24 hr 10/27/20 19:40 10/27/20 20:02 10/28/20 04:06 Temperature 97.7 F 97 F L 97.7 F Pulse Rate 70 69 70 Respiratory Rate 16 16 18 Blood Pressure 96/44 L 100/52 L 117/61 Pulse Oximetry 98 100 10/28/20 08:00 10/28/20 08:08 Temperature 97.7 F Pulse Rate 86 70 Respiratory Rate 18 Blood Pressure 117/61 Pulse Oximetry Intake/Output Intake/Output: Intake & Output 10/25/20 10/26/20 10/27/20 10/28/20 23:59 23:59 23:59 23:59 Intake Total 1620 1070 1060 625 Output Total 300 879 184 5868 Balance 1320 895 960 -1184 Meds/Results Radiology Results: ITS Impressions Chest X-Ray 10/23/20 12:57 IMPRESSION: No acute cardiopulmonary findings. Abdomen/Pelvis CT 10/23/20 13:30 IMPRESSION: 1. No acute intra-abdominal findings. 2. Autosomal dominant polycystic kidney disease. Impossible to exclude solid renal mass in the setting. 3. Extensive sigmoid colonic diverticulosis. Renal Ultrasound 10/23/20 17:14 IMPRESSION: 1. Polycystic kidneys without definite renal mass identified however evaluation for renal mass would be better achieved by CT or MRI without and with contrast. Labs Labs: Laboratory Results - last 24 hr 10/27/20 10/27/20 10/28/20 17:30 20:02 05:18 WBC 6.6 RBC 2.67 L Hgb 8.6 L Hct 26.8 L MCV 100.4 H MCH 32.2 MCHC 32.1 RDW 14.1 Plt Count 138 L MPV 10.2 Sodium Potassium Chloride Carbon Dioxide Anion Gap BUN Creatinine Estim Creat Clear Calc Estimated GFR Glucose POC Capillary Glucose 128 H 169 H Calcium Phosphorus Albumin 10/28/20 10/28/20 10/28/20 05:18 07:44 12:11 WBC RBC Hgb Hct MCV MCH MCHC RDW Plt Count MPV Sodium 130 L Potassium 4.0 Chloride 90 L Carbon Dioxide 30 Anion Gap 10 BUN 45 H Creatin
== END 2020-10-28 15:20 | disposition home or self-care (01) | DRG 391 ==
LOC: ANHED 14:04 → ANHIMU 15:56 → ANH3MED 10-26 23:17 → ANHIMU 10-30 13:31 → ANH3MEDSUR 11-03 10:39 → ANHIMU 11-03 10:39
PROVIDERS: Emergency Medicine; Family Medicine; Internal Medicine Gastroenterology; Internal Medicine Nephrology; Nurse Practitioner; Admitting Provider Hospitalist; Emergency Provider Family Medicine; PCP Family Medicine; Visit Provider Family Medicine
PROC: 0DJ08ZZ Inspection of Upper Intestinal Tract, Via Natural or Artificial Opening Endoscopic (ICD-10-PCS; CPT 43235; principal; 2020-10-27 12:15)
DX: R10.84 Generalized abdominal pain; N18.6 End stage renal disease; Q61.2 Polycystic kidney, adult type; Q44.6 Cystic disease of liver; D63.1 Anemia in chronic kidney disease; R07.9 Chest pain, unspecified; Z99.2 Dependence on renal dialysis; K29.70 Gastritis, unspecified, without bleeding; K57.30 Diverticulosis of large intestine without perforation or abscess without bleeding; E11.9 Type 2 diabetes mellitus without complications; I10 Essential (primary) hypertension; E03.9 Hypothyroidism, unspecified; J45.20 Mild intermittent asthma, uncomplicated; K21.9 Gastro-esophageal reflux disease without esophagitis; M10.9 Gout, unspecified; E55.9 Vitamin D deficiency, unspecified; Z66 Do not resuscitate; Z79.899 Other long term (current) drug therapy
CPT/HCPCS: 36415; 71046; 74176; 76775; 80048; 80069; 80076; 82607; 82728; 82746; 82948; 83036; 83540; 83550; 83605; 83735; 84100; 84443; 84484; 85025; 85027; 85046; 85610; 85730; 87070; 87075; 87205; 88305; 89051; 90945; 93005; 96372; 96374; 96375; 96376; 99285; A9270; G0378; J0131; J2001; J2270; J2405; J2704; J7040; Q5106

== ENCOUNTER 2020-12-11 17:15 | Emergency (ER) | payer MEDICARE, OTHER, SELFPAY ==
--- NOTE | ~2020-12-11 | XR_ITS ---
XR shoulder LT min 2V 12/11/2020 17:40 Indication: Left shoulder pain. No recent injury. Procedure: 4 views left shoulder Comparison: 05/08/2009 Findings: There is prominence of the coracoclavicular distance and acromioclavicular joints, borderli ne for acromioclavicular dislocation, possibly chronic. No acute fractures identified. No significant soft tissue abnormality. Impression: 1: Possible mild left acromioclavicular dislocation, possibly chronic. No acute fracture. Reviewed, dictated and finalized at location A. Impression: 1: Possible mild left acromioclavicular dislocation, possibly chronic. No acute fracture.
[2020-12-11 17:25] VITALS: BP 145/71; PULSE 107; RESP 18; TEMP 37.1; O2SAT 100
--- NOTE | 2020-12-11 17:31 | ED.UPPEXIN ---
HPI - Extremity Injury (Upper) General Chief Complaint: Extremity Injury, Upper Stated Complaint: Lt shoulder Time Seen by Provider: 12/11/20 17:31 Source: patient, family () and RN notes reviewed Mode of arrival: ambulatory Limitations: no limitations History of Present Illness HPI narrative: 64-year-old female presents to the [facility] with complaints of left shoulder pain for over 1 week. Has a decreased range of motion. Denies any recent injuries. Patient states that she has a history of dislocations in the same shoulder. Patient states that she has not been able to get comfortable and unable to sleep. Related Data Home Medications Medication Instructions Recorded Confirmed albuterol sulfate 90 mcg/actuation 1 puff INHALATION Q4H PRN 03/25/20 12/11/20 aerosol inhaler furosemide 80 mg tablet 80 mg PO BID 03/25/20 12/11/20 vitamin B complex-vitamin C-folic 1 tablet PO DAILY 03/25/20 12/11/20 acid 0.8 mg tablet sevelamer carbonate 1,600 mg PO TIDWM 10/23/20 12/11/20 Allergies Allergy/AdvReac Type Severity Reaction Status Date / Time azithromycin Allergy Severe Hives / Verified 12/11/20 17:23 Red Face cephalexin Allergy Severe Hives / Verified 12/11/20 17:23 Red Face Cephalosporins Allergy Severe Hives / Verified 12/11/20 17:23 Red Face hydrocodone Allergy Severe Hives / Verified 12/11/20 17:23 Red Face Penicillins Allergy Intermediate Hives / Verified 12/11/20 17:23 Red Face tetracycline Allergy Unknown Rash Verified 12/11/20 17:23 aspirin AdvReac Severe Ulcers Verified 12/11/20 17:23 codeine AdvReac Intermediate Hallucinati Verified 12/11/20 17:23 ng diazepam AdvReac Intermediate Confusion Verified 12/11/20 17:23 fentanyl AdvReac Intermediate Nausea Verified 12/11/20 17:23 orphenadrine AdvReac Intermediate Other Verified 10/27/20 11:03 Review of Systems Review of Systems: All systems reviewed & are unremarkable except as noted in HPI and below Constitutional: Constitutional: Reports no additional constitutional complaints, Denies chills and Denies fever(s) Eyes: Eyes: Reports no additional eye complaints ENT: Reports system reviewed and no additional complaints, except as documented Cardiovascular: Cardiovascular: Reports no additional cardiovascular complaints, Denies chest pain, Denies rapid heart rate, Denies radiating jaw, neck or arm pain and Denies slow heart rate Respiratory: Respiratory: Reports no additional respiratory complaints, Denies cough and Denies dyspnea Musculoskeletal: Musculoskeletal: Reports as per HPI and Reports arthralgias (Left shoulder posterior with movement pain increaed) Integumentary/Breasts: Skin/Breast: Reports system reviewed and no additional complaints, except as docu, Denies erythema and Denies rash Neurologic: Reports system reviewed and no additional complaints, except as documented, Denies vertigo, Denies dizziness, Denies syncope, Denies headache(s), Denies focal weakness, Denies numbness and Denies weakness Psychiatric: Psychiatric: Reports no additional psychiatric complaints Allergic/Immunologic: Allergic/Immunologic: Reports no additional allergic/immunologic complaints [facility] Past Medical History Medical History (Updated 12/11/20 @ 18:01 by Joanie Blancas) Anemia of chronic disease Asthma Chronic back pain Diabetes mellitus (~1995) End-stage renal disease on peritoneal dialysis Gastritis GERD (gastroesophageal reflux disease) Gout HTN (hypertension) (~1983) Hypothyroidism (acquired) Nausea and vomiting in adult Peritoneal dialysis status (~06/2016) Polycystic kidney disease Vitamin D deficiency Surgical History Surgical History H/O colonoscopy (~02/23/15) H/O hernia repair 06/1995, 11/2019 History of partial hysterectomy (~11/1993) History of tonsillectomy (~06/1959) History of tubal ligation (~06/1976) Hx of appendectomy (~01/1980) Hx of cholecystectomy (~04/05
[2020-12-11 17:35] VITALS: BP 145/71; PULSE 107; RESP 18; TEMP 37.1; O2SAT 100
== END 2020-12-11 18:05 | disposition home or self-care (01) ==
PROVIDERS: Emergency Provider Nurse Practitioner; PCP Family Medicine
DX: G89.29 Other chronic pain (principal); M25.512 Pain in left shoulder; D64.9 Anemia, unspecified; J45.909 Unspecified asthma, uncomplicated; E11.9 Type 2 diabetes mellitus without complications; K21.9 Gastro-esophageal reflux disease without esophagitis; M10.9 Gout, unspecified; I10 Essential (primary) hypertension; E03.9 Hypothyroidism, unspecified; Q61.3 Polycystic kidney, unspecified
CPT/HCPCS: 73030; 99213; A4565; G0463

== ENCOUNTER 2021-02-02 06:43 | Outpatient (CLI) | payer MEDICARE, OTHER, SELFPAY ==
--- NOTE | ~2021-02-02 | MR_ITS ---
EXAMINATION: MR cervical spine wo con EXAM DATE: 02/02/2021 08:09 INDICATION: Left-sided neck and shoulder pain. TECHNIQUE: Multi-sequential, multiplanar MR images of the cervical spine were obtained without contra st. Axial T2, axial T2 MERGE sequence. Sagittal T1, T2, T2 fat saturation images also obtained. Cor relation is made to cervical CT 2009. FINDINGS: There is moderate to severe loss of the disc height at C3-4, 5-6 and 6-7, mild to moderate at the other imaged levels. The spinal cord signal intensity and intrinsic morphology is normal. Cer vicomedullary junction is normal in appearance. There is evidence of mild cervical thoracic dextrosco liosis. There are no suspicious marrow signal abnormalities. Paraspinal soft tissue is unremarkable. There is 2 mm retrolisthesis C3 on C4, 2 mm anterolisthesis C4 on C5 and T1 on T2. Level by level evaluation: C2-C3: Disc does not extend beyond the endplate margin. Uncovertebral joint arthropathy: Mild left. Facet joint arthropathy: Mild bilateral. Neural foraminal stenosis: Mild left. Central canal stenosis: No stenosis. C3-C4: There is a mild diffuse disc bulge. Uncovertebral joint arthropathy: Mild to moderate left, mild right. Facet joint arthropathy: Moderate left, mild to moderate right. Neural foraminal stenosis: Moderate left, mild right. Central canal stenosis: No stenosis. C4-C5: Disc does not extend beyond the endplate margin. Uncovertebral joint arthropathy: Mild bilateral. Facet joint arthropathy: Moderate to severe left, mild right. Neural foraminal stenosis: Moderate left, no right. Central canal stenosis: No stenosis. C5-C6: There is a mild diffuse disc bulge. Uncovertebral joint arthropathy: Moderate left, mild to moderate right. Facet joint arthropathy: Moderate left, mild right. Neural foraminal stenosis: Mild to moderate left, mild right. Central canal stenosis: Mild. C6-C7: There is a mild diffuse disc bulge. Uncovertebral joint arthropathy: Moderate left, mild to moderate right. Facet joint arthropathy: Mild to moderate left, mild right. Neural foraminal stenosis: Mild to moderate left, no right. Central canal stenosis: Mild. C7-T1: There is a minimal diffuse disc bulge. Uncovertebral joint arthropathy: Mild to moderate left, mild right. Facet joint arthropathy: Mild left. Neural foraminal stenosis: No stenosis. Central canal stenosis: No stenosis. Noticeable progression spondylosis compared to [address] IMPRESSION: 1. Midcervical left-sided predominant neural foraminal stenosis. 2. Mild cervical thoracic dextroscoliosis. Reviewed, dictated and finalized at location D.
--- NOTE | ~2021-02-02 | MR_ITS ---
EXAMINATION: MR shoulder LT wo con DATE: 02/02/2021 08:09 INDICATION: Left shoulder pain TECHNIQUE: Magnetic resonance imaging (MRI) of the left shoulder was performed without intravenous co ntrast. Sequences included axial PD-weighted FS FSE, coronal oblique PD-weighted FS FSE, coronal obli que T2-weighted FS FSE, sagittal PD-weighted FS FSE, and sagittal T1-weighted SE. COMPARISON: Multiple left shoulder and chest radiographs dating between 12/11/2020 and 05/08/2009 FINDINGS: Coracoacromial arch: The acromion undersurface is curved in morphology (type II). There is thickening of the coracoacromia l ligament. There is widening of the acromioclavicular joint space particularly inferiorly where ther e is chronic erosion/remodeling with progressive loss of bone stock along the caudal margin of the cl avicle evident on prior radiographs dating back to 2008 at which time there appeared to be a fracture of the tip of the acromion which is now healed. There appears to be some laxity to the otherwise nor mal-appearing coracoclavicular ligament. Rotator cuff: Severe tendinopathy without discrete tear of the supraspinatus and infraspinatus tendons. The teres m inor tendon is normal. And subscapularis tendinopathy without discrete tear. There is muscular edema of the supraspinatus, infraspinatus and teres minor muscle bellies with moderate atrophy of the supra spinatus and minimal atrophy of the infraspinatus muscle bellies. Biceps tendon, glenoid labrum and glenohumeral cartilage: Long head of the biceps tendon is normal. There is a superior, anterior to posterior tear of the mauricio oid labrum (SLAP tear) faint from the 12:00 to the 10:30 position of the posterior superior glenoid l abrum. Glenohumeral cartilage is normal. Fluid: Physiologic amount of fluid in the glenohumeral joint and biceps tendon sheath. No loose osteochondra l bodies. Small amount of fluid in the subacromial/subdeltoid bursa and moderate amount in the subcor acoid bursa consistent with bursitis. Bones: Minimal subarticular edema at the head of the clavicle. Otherwise normal marrow signal with no fractu re or pathologic marrow replacing process. IMPRESSION: 1. Widening of the acromioclavicular joint with progressive erosion/remodeling along the posterior in ferior aspect of the lateral head of the clavicle likely sequela of old trauma with secondary osteoar thritis and/or distal clavicular osteolysis. Sequela of chronic inflammatory arthritis considered les s likely. 2. Severe tendinopathy without discrete tear of the supraspinatus and infraspinatus tendons. 3. Moderate atrophy of the supraspinatus and minimal infraspinatus atrophy with increased signal of b oth muscles as well as the teres minor muscle belly suggesting acute on chronic innervation change wi th involvement of both the axillary and suprascapular nerves suggesting a more proximal etiology like ly at the level of the C5 nerve root. Correlate with cervical spine MRI. 4. SLAP tear at the superior to posterior superior glenoid labrum. 5. Subacromial/subdeltoid and deep subcoracoid bursitis. Reviewed, dictated and finalized at location A. IMPRESSION: 1. Widening of the acromioclavicular joint with progressive erosion/remodeling along the posterior inferior aspect of the lateral head of the clavicle likely sequela of old trauma with secondary osteoarthritis and/or distal clavicular os teolysis. Sequela of chronic inflammatory arthritis considered less likely. 2. Severe tendinopathy without discrete tear of the supraspinatus and infraspin atus tendons. 3. Moderate atrophy of the supraspinatus and minimal infraspinatus atrophy with increased signal of both muscles as well as the teres minor muscle belly sugge sting acute on chronic inne
== END 2021-02-02 06:44 | disposition home or self-care (01) ==
PROVIDERS: PCP Family Medicine; Visit Provider Orthopaedic Surgery
DX: S43.432A Superior glenoid labrum lesion of left shoulder, initial encounter (principal); X58.XXXA Exposure to other specified factors, initial encounter
CPT/HCPCS: 72141; 73221

== ENCOUNTER 2021-06-08 08:19 | Emergency (ER) | payer MEDICARE, SELFPAY ==
[2021-06-08] VITALS (35 sets, daily range): BP systolic 86–168; BP diastolic 47–102; PULSE 70–109; RESP 13–29; TEMP 36.5; O2SAT 88–100
--- NOTE | ~2021-06-08 | XR_ITS ---
EXAMINATION: XR chest 1V portable DATE: 06/08/2021 08:53 INDICATION: Cough. TECHNIQUE: A single frontal view of the chest was obtained. COMPARISON: Chest 2 views 10/23/2020, CT abdomen and pelvis 10/23/2020 FINDINGS: There are patchy airspace opacities in right mid and lower lung zones and left lower lung z one. No pleural effusion or pneumothorax. The heart size is normal. IMPRESSION: 1. Patchy airspace opacities in right mid and lower lung zones and left lower lung zone, consistent w ith pneumonia (especially COVID-19 pneumonia). Reviewed, dictated and finalized at location A. D INCOME PORTFOLIO MANAGER IMPRESSION: 1. Patchy airspace opacities in right mid and lower lung zones and left lower l rober zone, consistent with pneumonia (especially COVID-19 pneumonia).
--- NOTE | 2021-06-08 08:45 | ECG_ITS ---
Measurements Intervals [place] Rate: 106 P: 51 PA: 149 QRS: 31 QRSD: 90 T: 74 QT: 330 QTc: 440 Interpretive Statements SINUS TACHYCARDIA LEFT VENTRICULAR HYPERTROPHY WITH ST-T CHANGE BORDERLINE ST-T WAVE ABNORMALITY- DIFFUSE LEADS BASELINE ARTIFACT- I, II, III, AVR, AVL, AVF ABNORMAL ECG Electronically Signed On 06-09-2021 16:03:55 SECONDARY MARKET MANAGER by Felipe Olivares D.O.
[2021-06-08 09:39] LABS: Basophils Percent Auto 0.3 % (0.2-1.2); Eosinophils Percent Auto 0.1 % (0-4.4); Immature Granulocyte Absolute 0.08 K/mm3 (0.00-0.031); Immature Granulocyte Percent A 0.9 % (0-0.5); Lymphocytes Absolute Auto 0.58 K/mm3 (0.9-3.2); Lymphocytes Percent Auto 6.2 % (18.3-44.2); Mean Corpuscular HGB Conc 32.5 g/dl (32-36); Mean Corpuscular Hemoglobin 31.7 pg (26-34); Mean Corpuscular Volume 97.6 fl (80-100); Monocytes Absolute Auto 0.6 K/mm3 (0.1-0.6); Monocytes Percent Auto 6.8 % (2.6-8.5); Neutrophils Percent Auto 85.7 % (45.5-73.1); Platelet Count Result 158 k/mm3 (150-375); Red Cell Distribution Width 14.6 % (11.5-14.5); White Blood Count 9.3 K/mm3 (4.5-10.0)
[2021-06-08 09:53] LABS: Alanine Aminotransferase 16 U/L (4-35); Albumin Level 3.8 g/dL (3.5-5.1); Alkaline Phosphatase 68 U/L (38-126); Anion Gap 25 mmol/L (8-16); Aspartate Amino Transferase 25 U/L (14-36); Bilirubin,Total 0.7 mg/dL (0.2-1.3); Blood Urea Nitrogen 57 mg/dL (7-17); Calcium 9.2 mg/dL (8.4-10.2); Carbon Dioxide 20 mmol/L (22-30); Chloride 90 mmol/L (98-107); Glucose 212 mg/dL (65-110); Lipase 107 U/L (23-300); Potassium 3.1 mmol/L (3.4-5.0); Sodium 135 mmol/L (137-145)
[2021-06-08 10:03] LABS: Estimated CRCL calculation 2 ml/min; Estimated Glomerular Filt Rate 2
[2021-06-08] MEDS: ONDANSETRON INJ 4 MG/2 ML VIAL IV PUSH (11:03)
[2021-06-08] MEDS: SODIUM CHLORIDE 0.9% IV 1,000 ML 999 ML IV CONT (11:04)
--- NOTE | 2021-06-08 11:25 | ED.SOB ---
HPI - SOB/Dyspnea General Chief Complaint: Shortness of Breath/Dyspnea Stated Complaint: sob Time Seen by Provider: 06/08/21 08:39 History of Present Illness HPI Narrative: Patient is a 65-year-old female who presents ER with shortness of breath. Began this morning. Associated with cough and lightheadedness. No fevers or chills or sweats. No nausea/vomiting. Lightheadedness when she goes from sitting to standing. Vaccinated against Covid. No known sick contacts. Related Data Home Medications Medication Instructions Recorded Confirmed furosemide 80 mg tablet 80 mg PO BID 03/25/20 02/24/21 vitamin B complex-vitamin C-folic 1 tablet PO DAILY 03/25/20 02/24/21 acid 0.8 mg tablet cholecalciferol (vitamin D3) 50 50 mcg PO BID cap 12/22/20 02/24/21 mcg (2,000 unit) capsule cinnamon bark 500 mg capsule 1,000 mg PO BID cap 12/22/20 02/24/21 cranberry 500 mg capsule 500 mg PO DAILY cap 12/22/20 02/24/21 sevelamer carbonate 800 mg tablet 2,400 mg PO TIDWM tablet 12/22/20 02/24/21 prochlorperazine maleate 5 mg 5 mg PO Q6H PRN tablet 02/24/21 02/24/21 tablet Allergies Allergy/AdvReac Type Severity Reaction Status Date / Time azithromycin Allergy Severe Hives / Verified 06/08/21 08:31 Red Face cephalexin Allergy Severe Hives / Verified 06/08/21 08:31 [place] Face Cephalosporins Allergy Severe Hives / Verified 06/08/21 08:31 Red Face hydrocodone Allergy Severe Hives / Verified 06/08/21 08:31 Red Face Penicillins Allergy Intermediate Hives / Verified 06/08/21 08:31 Red Face tetracycline Allergy Unknown Rash Verified 06/08/21 08:31 aspirin AdvReac Severe Ulcers Verified 06/08/21 08:31 codeine AdvReac Intermediate Hallucinati Verified 06/08/21 08:31 ng diazepam AdvReac Intermediate Confusion Verified 06/08/21 08:31 fentanyl AdvReac Intermediate Nausea Verified 06/08/21 08:31 orphenadrine AdvReac Intermediate Other Verified 02/24/21 09:12 Review of Systems Review of Systems: All systems reviewed & are unremarkable except as noted in HPI and below Constitutional: Constitutional: Denies chills, Reports fatigue and Denies fever(s) ENT: Reports dizziness, Denies nasal congestion and Denies sore throat Cardiovascular: Cardiovascular: Denies chest pain, Denies rapid heart rate and Denies radiating jaw, neck or arm pain Respiratory: Respiratory: Reports cough, Denies dyspnea and Denies wheezing Genitourinary: Genitourinary: Denies nocturia (Decreased urination), Denies dysuria and Denies urinary incontinence PMFSH Past Medical History Medical History Anemia of chronic disease Asthma Chronic back pain Diabetes mellitus (~1995) End-stage renal disease on peritoneal dialysis On transplant list Gastritis GERD (gastroesophageal reflux disease) Gout HTN (hypertension) (~1983) Hypothyroidism (acquired) Nausea and vomiting in adult Peritoneal dialysis status (~06/2016) Polycystic kidney disease Vitamin D deficiency Surgical History Surgical History H/O colonoscopy (~02/23/15) H/O hernia repair 06/1995, 11/2019 History of partial hysterectomy (~11/1993) History of tonsillectomy (~06/1959) History of tubal ligation (~06/1976) Hx of appendectomy (~01/1980) Hx of cholecystectomy (~04/1995) Hx of umbilical hernia repair (~06/1979) Family History Family History Mother Family history of diabetes mellitus in first degree relative Polycystic kidney disease Heart disease Hypertension Father Family history of lung cancer Sibling Polycystic kidney disease Sibling Diabetes mellitus Heart disease Other Malignant neoplasm of prostate Social History Social History Social History: Pt does not drink caffeine. 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
[2021-06-08 14:06] LABS: Add Urine Microscopic? YES; Appearance Urine Turbid (Clear); Bacteria Urine Trace /hpf; Bilirubin Urine Negative (Negative); Blood Urine 3+ (Negative); Color Urine Amber (Yellow); Glucose Urine UA Negative (Negative); Ketones Urine Negative (Negative); Leukocyte Esterase Ur Trace LEU/UL (Negative); Mucus Urine Rare /lpf; Nitrate Urine Negative (Negative); Protein Urine 2+ mg/dL (Negative); RBC Urine >75 /hpf (0-2); Specific Grav Ur 1.017 (1.001-1.035); Squamous Epithelial Cell Urine Many /hpf (Few); Urobilinogen Urine Negative mg/dL (<2.0); WBC Clumps Urine Present /HPF; WBC Urine >75 /hpf
[2021-06-08 20:09] LABS: SARS-CoV-2 RNA PCR Positive
== END 2021-06-08 17:03 | disposition home or self-care (01) ==
PROVIDERS: Emergency Provider Emergency Medicine; PCP Family Medicine
DX: U07.1 COVID-19 (principal); J12.82 Pneumonia due to coronavirus disease 2019; N39.0 Urinary tract infection, site not specified; E11.22 Type 2 diabetes mellitus with diabetic chronic kidney disease; I12.0 Hypertensive chronic kidney disease with stage 5 chronic kidney disease or end stage renal disease; N18.6 End stage renal disease; Z99.2 Dependence on renal dialysis; Q61.3 Polycystic kidney, unspecified; E55.9 Vitamin D deficiency, unspecified; M10.9 Gout, unspecified; K21.9 Gastro-esophageal reflux disease without esophagitis; D63.1 Anemia in chronic kidney disease; R00.0 Tachycardia, unspecified; I51.7 Cardiomegaly
CPT/HCPCS: 36415; 71045; 80053; 81001; 83690; 85025; 87086; 93005; 96361; 96374; 96375; 99284; C9803; J0131; J2405; J7030; U0003; U0005

== ENCOUNTER 2021-11-17 10:01 | Outpatient (CLI) | payer MEDICARE, OTHER, SELFPAY ==
[2021-11-17 10:37] LABS: Hemoglobin A1C 6.3 % (<5.7)
== END 2021-11-17 10:02 | disposition home or self-care (01) ==
PROVIDERS: PCP Family Medicine; Visit Provider Nurse Practitioner Family
DX: E03.9 Hypothyroidism, unspecified (principal); E11.9 Type 2 diabetes mellitus without complications
CPT/HCPCS: 36415; 83036; 84443

== ENCOUNTER 2022-03-14 10:56 | Outpatient (CLI) | payer MEDICARE, OTHER, SELFPAY ==
[2022-03-14 18:59] LABS: Basophils Absolute Auto 0.1 K/mm3 (0.0-0.1); Basophils Percent Auto 0.8 % (0.2-1.2); Eosinophils Absolute Auto 0.1 K/mm3 (0-0.3); Eosinophils Percent Auto 1.8 % (0-4.4); Hematocrit 37.9 % (37.0-47.0); Hemoglobin 11.4 g/dL (12.0-15.0); Immature Granulocyte Absolute 0.02 K/mm3 (0.00-0.031); Immature Granulocyte Percent A 0.3 % (0-0.5); Lymphocytes Percent Auto 20.3 % (18.3-44.2); Mean Corpuscular HGB Conc 30.1 g/dl (32-36); Mean Corpuscular Hemoglobin 32.6 pg (26-34); Mean Corpuscular Volume 108.3 fl (80-100); Mean Platelet Volume 11.2 fl (7.4-10.4); Monocytes Absolute Auto 0.7 K/mm3 (0.1-0.6); Monocytes Percent Auto 8.3 % (2.6-8.5); Neutrophils Absolute Auto 5.4 K/mm3 (1.3-6.7); Neutrophils Percent Auto 68.5 % (45.5-73.1); Platelet Count Result 176 k/mm3 (150-375); Red Cell Distribution Width 15.7 % (11.5-14.5); White Blood Count 7.9 K/mm3 (4.5-10.0)
[2022-03-14 19:28] LABS: Hemoglobin A1C 6.6 % (<5.7)
[2022-03-14 20:12] LABS: Alanine Aminotransferase 21 U/L (6-35); Alkaline Phosphatase 229 U/L (38-126); Anion Gap 17 mmol/L (8-16); Aspartate Amino Transferase 23 U/L (14-36); Bilirubin,Total 0.4 mg/dL (0.2-1.3); Blood Urea Nitrogen 47 mg/dL (7-17); Carbon Dioxide 25 mmol/L (22-30); Chloride 94 mmol/L (98-107); Cholesterol 185 mg/dL (0-200); Glucose 185 mg/dL (65-110); HDL Direct 48 mg/dL; Sodium 136 mmol/L (137-145); Triglycerides 282 mg/dL (<150)
[2022-03-14 20:22] LABS: LDL Cholesterol Direct 84 mg/dL
[2022-03-14 20:29] LABS: Estimated Glomerular Filt Rate 2
[2022-03-14 20:31] LABS: Vitamin D 25 Hydroxy 44.1 ng/mL
[2022-03-14 21:24] LABS: Macrocytosis 1+ (NORMAL); Platelet Estimate Adequate (Adequate); Schistocytes None Seen (NORMAL)
== END 2022-03-14 10:57 | disposition home or self-care (01) ==
LOC: ANHGOSHLAB 11:00
PROVIDERS: PCP Family Medicine; Visit Provider Nurse Practitioner Family
DX: E78.5 Hyperlipidemia, unspecified (principal); E11.9 Type 2 diabetes mellitus without complications; E03.9 Hypothyroidism, unspecified; I10 Essential (primary) hypertension; E55.9 Vitamin D deficiency, unspecified
CPT/HCPCS: 36415; 80053; 80061; 82306; 83036; 84443; 85025

== ENCOUNTER 2022-06-16 04:26 | Inpatient (IN) | payer MEDICARE, OTHER, SELFPAY ==
[2022-06-16] VITALS (20 sets, daily range): BP systolic 115–145; BP diastolic 55–71; PULSE 88–112; RESP 12–20; TEMP 36.2–36.7; O2SAT 95–100; BMI 27.8
--- NOTE | ~2022-06-16 | CT_ITS ---
EXAMINATION: CT abdomen pelvis wo con DATE: 06/20/2022 14:28 INDICATION: Flank pain. TECHNIQUE: Computed tomography (CT) of the abdomen and pelvis was performed without intravenous contr ast. The dose-length product was 450.82 mGy-cm. Automated exposure control and iterative reconstructi on technique were employed. COMPARISON: CT dated 06/16/2022. FINDINGS: There is bibasilar atelectasis/scarring. No significant pleural or pericardial effusion. Th ere are innumerable simple and complicated cysts of the liver and both kidneys. Stable hypodense mass of the right kidney, described on previous MRI examination is a complicated cyst. There are multiple coarse calcifications involving the cyst in both kidneys and the liver. There is a 3 mm stone in the left renal pelvis. No significant hydronephrosis. No ureteral stones or hydronephrosis. There is a p ercutaneous catheter coiled in the pelvis. The bladder is decompressed. Small amount of free fluid in the pelvis. The spleen, pancreas, adrenal glands moderate diffuse atherosclerosis without aneurysm. No significant lymphadenopathy. Nodular liver surface which may relate to polycystic kidney disease o r cirrhosis. There are nonobstructing bilateral renal stones. IMPRESSION: 1. Nonobstructing bilateral nephrolithiasis with 3 mm stone in the left renal pelvis. No significant hydronephrosis. 2: Adult polycystic kidney disease. Reviewed, dictated and finalized at location A. ERCIAL STRIPPER IMPRESSION: 1. Nonobstructing bilateral nephrolithiasis with 3 mm stone in the left renal p sukhwinder. No significant hydronephrosis. 2: Adult polycystic kidney disease.
--- NOTE | ~2022-06-16 | MR_ITS ---
EXAMINATION: MR abdomen wo/w con DATE: 06/16/2022 14:32 INDICATION: Right kidney mass TECHNIQUE: Magnetic resonance imaging (MRI) of the abdomen was performed without and with 14 mL Multi horacio intravenous contrast. Sequences included coronal T2-weighted SS-FSE, coronal and axial FS 2D-F IESTA, axial STIR FSE, axial T2-weighted SS-FSE, axial T2-weighted FS SS-FSE, axial diffusion-weighte d SE, axial dual-echo T1-weighted FSPGR, and axial and coronal T1-weighted LAVA. Postcontrast axial T 1-weighted LAVA images were obtained in a time course. Postcontrast coronal T1-weighted LAVA images w ere obtained. COMPARISON: CT abdomen pelvis dated 06/16/2022 FINDINGS: Discoid atelectasis in the dependent lower lobes. Heart size normal. No pericardial or pleural effusi on. Small amount of ascites scattered throughout the abdomen and visualized pelvis. This may be relat ed to peritoneal dialysis with a peritoneal dialysis catheter seen extending into the left side of th e abdomen. Susceptibility artifact associated with cholecystectomy clips the gallbladder fossa. Hepat omegaly with subtle liver surface nodularity suspicious for cirrhosis. There appear to be dilated col lateral vessels draining to the inferior vena cava, unclear whether these represent intrahepatic port osystemic collaterals versus hepatic venous collaterals related to compression of some of the drainin g veins resulting from numerous T2 hyperintense nonenhancing cysts throughout the liver which become nearly confluent in much of the left hepatic lobe. Common bile duct is mildly dilated to 8 mm which i s within normal limits post cholecystectomy. No intrahepatic biliary ductal dilation. Pancreas, splee n and bilateral adrenal glands are normal. No bowel obstruction. No pathologically enlarged abdominal lymphadenopathy. Lumbar levoscoliosis with severe spondylosis. Enlargement of the bilateral kidneys which are comprised large of innumerable cysts representing a co mbination of T2 hyperintense, T1 hypointense simple cysts and T1 hyperintense, T2 hyperintense nonenh ancing complex proteinaceous/hemorrhagic cysts. This includes the lesion of concern at the right kidn ey which appears to correspond to combination of simple and complex cysts. Thin linear enhancement di stributed between the cyst likely representing residual normal parenchyma although could not absolute ly exclude Bosniak 2F cyst with thin internal septations. There is however no evident solid enhancing mass or nodular enhancing soft tissue components associated with the cysts. IMPRESSION: 1. Polycystic kidney disease with marginal both kidneys largely replaced by numerous simple and compl ex appearing cysts, some of which accounts for the patient concern on the prior CT. No evident solid enhancing mass or nodularity associated with the cysts to suggest malignancy. 2. Hepatomegaly with subtle surface nodularity potentially related to cirrhosis. 3. Intrahepatic collaterals, unclear whether hepatic venous collaterals related to compression of ai e of the draining hepatic veins were portosystemic collaterals related to portal venous hypertension the setting of possible cirrhosis. 4. Small volume ascites which may be related to peritoneal dialysis. Reviewed, dictated and finalized at location A. PING SUPPORT IMPRESSION: 1. Polycystic kidney disease with marginal both kidneys largely replaced by num erous simple and complex appearing cysts, some of which accounts for the patien t concern on the prior CT. No evident solid enhancing mass or nodularity associ ated with the cysts to suggest malignancy. 2. Hepatomegaly with subtle surface nodularity potentially related to cirrhosis . 3. Intrahepatic collaterals, unclear whether hepatic venous collaterals related to compress
--- NOTE | ~2022-06-16 | NM_ITS ---
EXAM: NM gastric emptying study DATE: 06/22/2022 14:22 INDICATION: Nausea TECHNIQUE: A gastric emptying study was performed using the methodology of Jagjit NORIEGA, et al. J Nucl Med 2007; 48:568-572. The patient was given a meal consisting of 2 scrambled eggs labeled with 1.1 m Ci Tc-99m sulfur colloid, 2 slices of toast, two packages of jam, and approximately 120 mL of water. Simultaneous anterior and posterior 1-min images of the abdomen were obtained with the patient supine at multiple time points over a total period of 4 hours. The geometric mean of anterior and posterior views was determined, and the percentage retention was calculated for each time point. COMPARISON: None. FINDINGS: Gastric retention of the radiotracer-labeled meal was 73%, 24%, and 5% at the 1-hour, 2-hour, and 4-h our time points, respectively. With this technique, apparent rapid gastric emptying is suggested by < 30% gastric retention at 1 hour. Delayed gastric emptying is defined by gastric retention of >90% at 1 hour, >60% retention at 2 hours, or >10% retention at 4 hours. IMPRESSION: 1. Normal gastric emptying. Reviewed, dictated and finalized at location A. CENTER SOLUTION ARCHITECT IMPRESSION: 1. Normal gastric emptying.
--- NOTE | ~2022-06-16 | CT_ITS ---
EXAMINATION: CT abdomen pelvis wo con DATE: 06/16/2022 05:52 INDICATION: Right flank pain. Hematuria. TECHNIQUE: Computed tomography (CT) of the abdomen and pelvis was performed without intravenous contr ast. Automated exposure control and iterative reconstruction technique were employed. The dose-length product was 438.72 mGy-cm. COMPARISON: CT abdomen and pelvis 10/23/2020 FINDINGS: The visualized portions of the lung bases demonstrate mild atelectasis. No pleural effusion . The heart size is normal. No pericardial effusion. The liver demonstrates surface nodularity. There are numerous cysts in the liver measuring up to 2.9 cm. The spleen, pancreas, and adrenal glands are normal. There are numerous cysts and hemorrhagic cysts in the kidneys. There is a 4.6 cm mass in rig ht kidney measuring soft tissue attenuation with adjacent fat stranding. There are numerous calcifica tions of the kidneys, most of which are parenchymal. There are approximately 3 right kidney stones me asuring up to 3 mm. There are approximately 3 left kidney stones measuring up to 7 mm. There is a 4 m m stone in left renal pelvis. There is no hydronephrosis. A peritoneal dialysis catheter is noted. Th ere is diverticulosis of the colon without evidence of diverticulitis. There are no dilated loops of bowel. The appendix is not visualized. There are no pathologically enlarged lymph nodes. There is a r ight inguinal hernia containing fat. There is a small volume of ascites. There is lumbar levoscoliosi s and severe spondylosis. IMPRESSION: 1. New 4.6 cm mass in right kidney measuring soft tissue attenuation, most likely a hemorrhagic cyst. Neoplasm cannot be excluded for the presumed hemorrhagic cysts in both kidneys. Consider abdomen CT or MRI without and with contrast. 2. Polycystic kidney disease. 3. Liver surface nodularity suspicious for cirrhosis. 4. Small volume of ascites with peritoneal dialysis catheter. 5. Bilateral nonobstructing kidney stones. Reviewed, dictated and finalized at location A. BOOKER IMPRESSION: 1. New 4.6 cm mass in right kidney measuring soft tissue attenuation, most like ly a hemorrhagic cyst. Neoplasm cannot be excluded for the presumed hemorrhagic cysts in both kidneys. Consider abdomen CT or MRI without and with contrast. 2. Polycystic kidney disease. 3. Liver surface nodularity suspicious for cirrhosis. 4. Small volume of ascites with peritoneal dialysis catheter. 5. Bilateral nonobstructing kidney stones.
--- NOTE | 2022-06-16 05:31 | ED.GENADULT ---
HPI - General Adult General Chief complaint: Urogenital-Female Stated complaint: R flank pain Time Seen by Provider: 06/16/22 05:02 History of Present Illness HPI narrative: 60-year-old female with history of CKD and polycystic cystic kidney disease on peritoneal dialysis presents with 1 week of flank pain, initially started on her left and migrated to her right, and has been worsening. She makes very little urine at this time and does not think there is pain when she urinates. No fevers or chills. She is worried about her kidneys worsening Related Data Home Medications Medication Instructions Recorded Confirmed furosemide 80 mg tablet 80 mg PO BID 03/25/20 05/19/22 vitamin B complex-vitamin C-folic 1 tablet PO DAILY 03/25/20 05/19/22 acid 0.8 mg tablet (Renal-Yojana) cholecalciferol (vitamin D3) 50 50 mcg PO BID 12/22/20 05/19/22 mcg (2,000 unit) capsule cinnamon bark 500 mg capsule 1,000 mg PO BID 12/22/20 05/19/22 cranberry 500 mg capsule 500 mg PO DAILY 12/22/20 05/19/22 sevelamer carbonate 800 mg tablet 2,400 mg PO TIDWM 12/22/20 05/19/22 Allergies Allergy/AdvReac Type Severity Reaction Status Date / Time azithromycin Allergy Severe Hives / Verified 05/19/22 10:27 Red Face cephalexin Allergy Severe Hives / Verified 05/19/22 10:27 Red Face Cephalosporins Allergy Severe Hives / Verified 05/19/22 10:27 Red Face hydrocodone Allergy Severe Hives / Verified 05/19/22 10:27 Red Face Penicillins Allergy Intermediate Hives / Verified 05/19/22 10:27 Red Face tetracycline Allergy Unknown Rash Verified 05/19/22 10:27 aspirin AdvReac Severe Ulcers Verified 05/19/22 10:27 codeine AdvReac Intermediate Hallucinati Verified 05/19/22 10:27 ng diazepam AdvReac Intermediate Confusion Verified 05/19/22 10:27 fentanyl AdvReac Intermediate Nausea Verified 05/19/22 10:27 orphenadrine AdvReac Intermediate Other Verified 05/19/22 10:27 Review of Systems Review of Systems: CONST: No fever. HEENT: No sore throat C/V: No chest pain RESP: No cough GI: Flank pain : Hematuria M/S: No joint pain. SKIN: No rash. NEURO: [No headache or focal numbness or weakness] PSYCH: [No depression] [facility] Past Medical History Medical History Anemia of chronic disease Asthma Chronic back pain Diabetes mellitus (~1995) End-stage renal disease on peritoneal dialysis On transplant list Gastritis GERD (gastroesophageal reflux disease) Gout HTN (hypertension) (~1983) Hypothyroidism (acquired) Nausea and vomiting in adult Peritoneal dialysis status (~06/2016) Polycystic kidney disease Seasonal rhinitis Vitamin D deficiency Surgical History Surgical History H/O colonoscopy (~02/23/15) H/O hernia repair 06/1995, 11/2019 History of partial hysterectomy (~11/1993) History of tonsillectomy (~06/1959) History of tubal ligation (~06/1976) Hx of appendectomy (~01/1980) Hx of cardiac cath Hx of cholecystectomy (~04/1995) Hx of umbilical hernia repair (~06/1979) Family History Family History Mother Family history of diabetes mellitus in first degree relative Polycystic kidney disease Heart disease Hypertension Father Family history of lung cancer Sibling Polycystic kidney disease Sibling Diabetes mellitus Heart disease Other Malignant neoplasm of prostate Social History Social History Social History: Pt does not drink caffeine. 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 She is and lives with her . She said she is in the middle of drawing up her power general purchasing agent papers and has not completed them as of yet. She would like for her and son to be the durable power general purchasing agent for healthcare. However the patient stated that she would like to be a DNR. We dis
[2022-06-16 05:44] LABS: Basophils Absolute Auto 0.1 K/mm3 (0.0-0.1); Basophils Percent Auto 0.4 % (0.2-1.2); Eosinophils Absolute Auto 0.1 K/mm3 (0-0.3); Eosinophils Percent Auto 0.6 % (0-4.4); Hematocrit 29.6 % (37.0-47.0); Hemoglobin 9.3 g/dL (12.0-15.0); Immature Granulocyte Percent A 0.7 % (0-0.5); Lymphocytes Absolute Auto 0.94 K/mm3 (0.9-3.2); Lymphocytes Percent Auto 6.6 % (18.3-44.2); Mean Corpuscular HGB Conc 31.4 g/dl (32-36); Mean Corpuscular Hemoglobin 32.5 pg (26-34); Mean Corpuscular Volume 103.5 fl (80-100); Mean Platelet Volume 9.5 fl (7.4-10.4); Monocytes Absolute Auto 1.2 K/mm3 (0.1-0.6); Monocytes Percent Auto 8.5 % (2.6-8.5); Neutrophils Absolute Auto 11.8 K/mm3 (1.3-6.7); Neutrophils Percent Auto 83.2 % (45.5-73.1); Platelet Count Result 234 k/mm3 (150-375); Red Blood Count 2.86 M/mm3 (4.2-5.4); Red Cell Distribution Width 15.5 % (11.5-14.5); White Blood Count 14.2 K/mm3 (4.5-10.0)
[2022-06-16 06:07] LABS: Alanine Aminotransferase 17 U/L (6-35); Albumin Level 3.7 g/dL (3.5-5.1); Alkaline Phosphatase 137 U/L (38-126); Anion Gap 21 mmol/L (8-16); Aspartate Amino Transferase 21 U/L (14-36); Bilirubin,Total 0.8 mg/dL (0.2-1.3); Blood Urea Nitrogen 60 mg/dL (7-17); Calcium 9.1 mg/dL (8.4-10.2); Carbon Dioxide 20 mmol/L (22-30); Chloride 93 mmol/L (98-107); Glucose 196 mg/dL (65-110); Potassium 3.6 mmol/L (3.4-5.0); Sodium 134 mmol/L (137-145)
[2022-06-16 06:14] LABS: Estimated CRCL calculation 3 ml/min; Estimated Glomerular Filt Rate 2
[2022-06-16 06:45] LABS: Appearance Urine Cloudy (Clear); Bilirubin Urine Negative (Negative); Blood Urine 3+ (Negative); Color Urine Yellow (Yellow); Glucose Urine UA Negative (Negative); Ketones Urine Negative (Negative); Leukocyte Esterase Ur 3+ LEU/UL (Negative); Nitrate Urine Negative (Negative); Protein Urine 3+ mg/dL (Negative); Urobilinogen Urine 0.2 mg/dL (<2.0)
[2022-06-16 06:46] LABS: Bacteria Urine Trace /hpf; RBC Urine >75 /hpf (0-2); Squamous Epithelial Cell Urine Occasional /hpf (Few); WBC Clumps Urine Present /HPF; WBC Urine >75 /hpf
[2022-06-16 07:06] LABS: Add Urine Microscopic? YES
--- NOTE | 2022-06-16 07:22 | PC.NURSE ---
Report given to ARNULFO Armendariz.
[2022-06-16] MEDS: levoFLOXacin 500 MG/D5W 100 ML 500 MG/100 ML BAG 100 MG IVPB (07:35)
[2022-06-16 08:02] LABS: Influenza A QL RT-PCR Negative (Negative); Influenza B QL RT-PCR Negative (Negative); RSV RNA, RT-PCR Negative (Negative); SARS-CoV-2 RNA PCR Negative
--- NOTE | 2022-06-16 09:10 | ADMGEN ---
This patient, Shantelle Salinas, was admitted to 3 [facility] Surg Room 319-01. Patient/family oriented to hospital policies and general routines including ID bracelet, bed and alarms, visiting hours, pain management, procedures, bathroom and other care routines, personal items, smoking policy, room service/diet, and visiting hours. Information on how to activate the Rapid Response Team has been discussed. Patient/Family are encouraged to report perceived risks to care and to ask questions if they do not understand what they are told or what they should do.
--- NOTE | 2022-06-16 09:12 | PM.IMHP ---
H&P: HPI History of Present Illness Date/Time: 06/16/22 09:12 Chief Complaint: Flank pain Narrative: This is a 60-year-old female with past medical history of end-stage renal disease related to polycystic kidney disease on peritoneal dialysis started about 5 years back presents with 1 week history of right flank pain which has been gradually worsening. She makes very little urine but she had noted some blood in her urine recently. She denies any fever or chills. She states that she had some pain in her left flank about Erika time which resolved spontaneously. She rates her pain about 7-8 of 10 in intensity sharp shooting pain. Nonradiating. In the ER is found to have urinary tract infection and CT evidence of fat stranding around the right kidney. She got a dose of levofloxacin for her UTI/pyelonephritis getting admitted for further evaluation and management. He has mild leukocytosis upon presentation. Review of Systems Review of Systems: - CONSTITUTIONAL: Denies weight loss, fever and chills. - HEENT: Denies changes in vision and hearing - RESPIRATORY: Denies SOB and cough. - CV: Denies palpitations and CP. - GI: Denies abdominal pain, nausea, vomiting and diarrhea. Reports right flank pain - : Denies dysuria and urinary frequency. Reports hematuria - MSK: Denies myalgia and joint pain. - SKIN: Denies rash and pruritus. - NEUROLOGICAL: Denies headache and syncope. - PSYCHIATRIC: Denies recent changes in mood. Denies anxiety and depression. [facility] Past Medical History Medical History Anemia of chronic disease Asthma Chronic back pain Diabetes mellitus (~1995) End-stage renal disease on peritoneal dialysis On transplant list Gastritis GERD (gastroesophageal reflux disease) Gout HTN (hypertension) (~1983) Hypothyroidism (acquired) Nausea and vomiting in adult Peritoneal dialysis status (~06/2016) Polycystic kidney disease Seasonal rhinitis Vitamin D deficiency Surgical History Surgical History H/O colonoscopy (~02/23/15) H/O hernia repair 06/1995, 11/2019 History of partial hysterectomy (~11/1993) History of tonsillectomy (~06/1959) History of tubal ligation (~06/1976) Hx of appendectomy (~01/1980) Hx of cardiac cath Hx of cholecystectomy (~04/1995) Hx of umbilical hernia repair (~06/1979) Family History Family History Mother Family history of diabetes mellitus in first degree relative Polycystic kidney disease Heart disease Hypertension Father Family history of lung cancer Sibling Polycystic kidney disease Sibling Diabetes mellitus Heart disease Other Malignant neoplasm of prostate Social History Social History Social History: Pt does not drink caffeine. 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 She said she is in the middle of drawing up her power criminal defense attorney papers and has not completed them as of yet. She would like for her and son to be the durable power criminal defense attorney for healthcare. However the patient stated that she would like to be a DNR. We discussed this so that she understands what that meant. The patient stated that if her heart stops she does not want to be resuscitated at all and she does not want to be on a ventilator. The patient does not use any alcohol and she is a lifelong nonsmoker. She has 3 children. Two daughters and a son Smoking status: Never smoker Alcohol intake: never Substance use: never Substance use type: does not use Lack of Transportation: No Lack of Food: Never True Current Housing: I Have Housing Concerned About Future Housing: No Difficulty Paying Gas/Electric Bills: No Difficulty Paying for Meds: No Currently Unemployed: No Educat
[2022-06-16 11:22] LABS: Glucose Point of Care 283 mg/dl (65-105)
--- NOTE | 2022-06-16 11:59 | PC.NURSE ---
accucheck was taken after light meal
[2022-06-16 13:50] LABS: Hemoglobin A1C 7.1 % (<5.7)
--- NOTE | 2022-06-16 13:55 | PC.NURSE ---
pt to MRI via wheelchair
--- NOTE | 2022-06-16 14:37 | PC.NURSE ---
pt returned from MRI
--- NOTE | 2022-06-16 15:15 | PM.CNNEP ---
Assessment and Plan Assessment and plan (1) End stage renal disease: Code(s): N18.6 - End stage renal disease Status: Chronic Assessment and Plan: resume nightly CCPD follow electrolytes, volume status, and clearance (2) Acute pyelonephritis: Code(s): N10 - Acute pyelonephritis Status: Acute Assessment and Plan: as suggested by UA/UTI and flank pain follow culture results on antibiotics (3) Polycystic kidney disease: Code(s): Q61.3 - Polycystic kidney, unspecified Status: Chronic Assessment and Plan: known history Urology recommendations noted (4) HTN (hypertension): Onset Date: ~1983 Qualifiers: Hypertension type: essential hypertension Qualified Code(s): I10 - Essential (primary) hypertension Code(s): I10 - Essential (primary) hypertension Status: Chronic Assessment and Plan: reasonable control follow trend of hemodynamics (5) Anemia: Code(s): D64.9 - Anemia, unspecified Status: Chronic Assessment and Plan: due to ESRD and acute illness Epogen 3x/week follow H/H (6) Diabetes mellitus: Onset Date: Qualifiers: Diabetes mellitus type: type 2 Diabetes mellitus exterminator termite insulin use: without assisted use Diabetes mellitus complication status: without complication Qualified Code(s): E11.9 - Type 2 diabetes mellitus without complications Code(s): E11.9 - Type 2 diabetes mellitus without complications Status: Chronic Assessment and Plan: follow accuchecks glycemic control Will continue to follow. History of Present Illness Reason for Consult Consult date: 06/16/22 Reason for consult: end stage renal disease Chief Complaint Chief complaint: uti,pd patient History of Present Illness Narrative: The patient is a 60-year-old female with a past medical history as outlined below who presented to [facility] Emergency room with complaints of worsening right flank pain. The patient states that she has had right flank pain for about a week if not longer and appears to be gradually worsening in that time frame. Due to her end-stage renal disease, she does not make very much urine but she did notice some blood in it recently when she did have some urine output. She gave no complaints of fevers or chills but reports that her flank pain was last noticeable around [place] time which seemed to resolve on its own. Given the persistence of this issue/ problem for last week, she presented to the ER for further assessment. Workup and evaluation in the emergency room demonstrated the patient be hemodynamically stable but in mild distress secondary to her right flank pain. She rated the pain as a seven 8/10 in intensity and described as a sharp shooting pain. There is no radiation or any other associated symptoms. Further testing in the emergency room demonstrated labs consistent with her known history of end-stage renal disease and a urinalysis that was highly suggestive a urinary tract infection. A CT scan of the abdomen pelvis was done which demonstrated fat stranding around the right kidney concerning for possible pyelonephritis. Given that her CBC had a mild leukocytosis in association with her other symptoms / laboratory findings, it was felt that she may have acute pyelonephritis in her right kidney. Appropriate cultures were obtained and she was started on broad-spectrum IV antibiotic therapy with subsequent [place] to the hospital for further evaluation and treatment. Renal consultation was requested due to her end-stage renal disease. The patient is quite familiar to me as I take care of her outpatient dialysis needs. She is currently on peritoneal dialysis through [facility] under my care. From a dialysis perspective, the patient has been doing reasonably well and is compliant with her treatments. Her month
--- NOTE | 2022-06-16 15:54 | WPDURCON ---
Assessment and Plan Assessment and plan (1) Acute pyelonephritis: Code(s): N10 - Acute pyelonephritis Status: Acute Assessment and Plan: Continue IV antibiotics, tailor to culture results. Likely the cause of her flank pain, the mass is not contributing to her flank pain. (2) Polycystic kidney disease: Code(s): Q61.3 - Polycystic kidney, unspecified Status: Chronic (3) Right renal mass: Code(s): N28.89 - Other specified disorders of kidney and ureter Status: Acute Assessment and Plan: MRI confirms that the mass is in fact cystic and not concerning for a cancerous lesion. No further follow up at this time, continue to follow up with your [employer]. Urology Consult Note HPI Date Seen: 06/16/22 Time Seen: 12:45 Requesting Physician: Jacque Brown MD Primary Care Provider: Addis Peña MD Consult Narrative Reason for consult: Right Renal Mass Narrative: Shantelle Salinas is a 66 year old female who was initially seen in the ER yesterday for ongoing, worsening flank pain. She states the flank pain started in the left flank then moved to the right and radiates to her abdomen. She denies dysuria, hematuria, frequency or urgency and makes very little urine d/t being on peritoneal dialysis from CKD secondary to polycystic kidney disease which she was diagnosed with 7 years ago. She has a WBC of 14.2, creatinine of 15.80 which is down from 19.40 on 06/08/22, UA is suggestive of a UTI, urine culture is pending. A CT was done on 06/16/22 without contrast and shows a 4.6cm mass in the right kidney most likely hemorrhagic cyst, and bilateral non obstructive kidney stones. In comparison, the CT done on 10/23/20 shows polycystic kidney disease but no evidence of the 4.6cm right renal mass as seen in the recent CT scan. Review of Systems Cardiovascular: Cardiovascular: Denies chest pain Respiratory: Respiratory: Reports no additional respiratory complaints Gastrointestinal: Gastrointestinal: Reports abdominal pain, Denies nausea and Denies vomiting Genitourinary: Genitourinary: Denies hematuria, Denies nocturia, Denies dysuria, Denies pelvic pain, Reports flank pain, Denies urinary incontinence, Denies urinary hesitancy and Denies urinary urgency [facility] Past Medical History Medical History Anemia of chronic disease Asthma Chronic back pain Diabetes mellitus (~1995) End-stage renal disease on peritoneal dialysis On transplant list Gastritis GERD (gastroesophageal reflux disease) Gout HTN (hypertension) (~1983) Hypothyroidism (acquired) Nausea and vomiting in adult Peritoneal dialysis status (~06/2016) Polycystic kidney disease Seasonal rhinitis Vitamin D deficiency Surgical History Surgical History H/O colonoscopy (~02/23/15) H/O hernia repair 06/1995, 11/2019 History of partial hysterectomy (~11/1993) History of tonsillectomy (~06/1959) History of tubal ligation (~06/1976) Hx of appendectomy (~01/1980) Hx of cardiac cath Hx of cholecystectomy (~04/1995) Hx of umbilical hernia repair (~06/1979) Family History Family History Mother Family history of diabetes mellitus in first degree relative Polycystic kidney disease Heart disease Hypertension Father Family history of lung cancer Sibling Polycystic kidney disease Sibling Diabetes mellitus Heart disease Other Malignant neoplasm of prostate Social History Social History Social History: Pt does not drink caffeine. 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 She is and lives with her . She said she is in the middle of drawing up her power divorce attorney papers and has not completed them as of yet. She would like for her hus
[2022-06-16 16:32] LABS: Glucose Point of Care 163 mg/dl (65-105)
[2022-06-16] MEDS: SEVELAMER CARBONATE 800 MG TABLET 2400 MG PO (17:05)
[2022-06-16] MEDS: CHOLECALCIFEROL 1,000 UNITS TABLET 2000 UNITS PO (17:06)
[2022-06-16] MEDS: PANTOPRAZOLE 40 MG TABLET PO (17:06)
[2022-06-16] MEDS: FUROSEMIDE 80 MG TABLET PO (17:07)
[2022-06-16 19:33] LABS: Hepatitis B Surface Antigen Negative (Negative)
[2022-06-16 20:55] LABS: Glucose Point of Care 203 mg/dl (65-105)
[2022-06-16] MEDS: HEPARIN SODIUM 5,000 UNITS/ML VIAL 5000 UNITS SUB-Q (21:30)
[2022-06-17] MEDS: LEVOTHYROXINE SODIUM 12.5 MCG TABLET PO (06:12)
[2022-06-17 06:31] LABS: Basophils Percent Auto 0.3 % (0.2-1.2); Eosinophils Absolute Auto 0.1 K/mm3 (0-0.3); Eosinophils Percent Auto 0.6 % (0-4.4); Hematocrit 27.6 % (37.0-47.0); Hemoglobin 8.6 g/dL (12.0-15.0); Immature Granulocyte Absolute 0.07 K/mm3 (0.00-0.031); Immature Granulocyte Percent A 0.6 % (0-0.5); Lymphocytes Absolute Auto 0.71 K/mm3 (0.9-3.2); Mean Corpuscular HGB Conc 31.2 g/dl (32-36); Mean Corpuscular Hemoglobin 31.7 pg (26-34); Mean Corpuscular Volume 101.8 fl (80-100); Mean Platelet Volume 9.5 fl (7.4-10.4); Monocytes Absolute Auto 0.8 K/mm3 (0.1-0.6); Monocytes Percent Auto 7.1 % (2.6-8.5); Neutrophils Absolute Auto 10.1 K/mm3 (1.3-6.7); Neutrophils Percent Auto 85.4 % (45.5-73.1); Platelet Count Result 244 k/mm3 (150-375); Red Blood Count 2.71 M/mm3 (4.2-5.4); Red Cell Distribution Width 15.5 % (11.5-14.5); White Blood Count 11.8 K/mm3 (4.5-10.0)
[2022-06-17 06:40] VITALS: BP 105/58; PULSE 96; RESP 16; TEMP 36.3; O2SAT 98
[2022-06-17 06:58] LABS: Alanine Aminotransferase 15 U/L (6-35); Albumin Level 3.2 g/dL (3.5-5.1); Alkaline Phosphatase 111 U/L (38-126); Anion Gap 18 mmol/L (8-16); Aspartate Amino Transferase 17 U/L (14-36); Bilirubin,Total 0.5 mg/dL (0.2-1.3); Blood Urea Nitrogen 56 mg/dL (7-17); Calcium 8.9 mg/dL (8.4-10.2); Carbon Dioxide 23 mmol/L (22-30); Chloride 91 mmol/L (98-107); Estimated CRCL calculation 3 ml/min; Estimated Glomerular Filt Rate 2; Glucose 206 mg/dL (65-110); Magnesium 3.1 mg/dL (1.6-2.3); Potassium 3.5 mmol/L (3.4-5.0); Sodium 132 mmol/L (137-145)
[2022-06-17 07:39] LABS: Glucose Point of Care 236 mg/dl (65-105)
[2022-06-17 07:45] VITALS: BP 105/58; PULSE 96; RESP 18; TEMP 36.3
[2022-06-17] MEDS: INSULIN ASPART (*BKC) 100 UNITS/ML SUB-Q (09:26)
[2022-06-17] MEDS: PIOGLITAZONE HCL 30 MG TABLET PO (09:27)
[2022-06-17] MEDS: CHOLECALCIFEROL 1,000 UNITS TABLET 2000 UNITS PO ×2 (09:27→17:07)
[2022-06-17] MEDS: allopurinoL 150 MG TABLET PO (09:28)
[2022-06-17] MEDS: FUROSEMIDE 80 MG TABLET PO ×2 (09:28→17:07)
[2022-06-17] MEDS: lisinopriL 5 MG TABLET PO (09:28)
[2022-06-17] MEDS: HEPARIN SODIUM 5,000 UNITS/ML VIAL 5000 UNITS SUB-Q ×2 (09:28→21:01)
[2022-06-17] MEDS: VITAMIN B CMPLX/VIT C/FOLIC AC 1 CAPSULE 1 CAP PO (09:29)
[2022-06-17] MEDS: FLUTICASONE PROPIONATE 0.05% NA SPR 16 GM BTL (*BKC) 1 SPRAY NASAL ×2 (09:29→17:07)
[2022-06-17] MEDS: polyethylene glycoL 3350 17 GM POWD.PACK PO (09:29)
[2022-06-17 11:33] LABS: Glucose Point of Care 185 mg/dl (65-105)
--- NOTE | 2022-06-17 13:16 | PM.IMPN ---
Progress Note: A&P Assessment and Plan (1) Acute pyelonephritis: Code(s): N10 - Acute pyelonephritis Status: Acute (2) Peritoneal dialysis catheter in place: Code(s): Z99.2 - Dependence on renal dialysis Status: Acute (3) Hypothyroidism (acquired): Code(s): E03.9 - Hypothyroidism, unspecified Status: Acute (4) GERD (gastroesophageal reflux disease): Qualifiers: Esophagitis presence: without esophagitis Qualified Code(s): K21.9 - Gastro-esophageal reflux disease without esophagitis Code(s): K21.9 - Gastro-esophageal reflux disease without esophagitis Status: Acute (5) Chronic back pain: Qualifiers: Back pain location: low back pain Back pain laterality: unspecified Sciatica presence: unspecified whether sciatica present Qualified Code(s): M54.5 - Low back pain; G89.29 - Other chronic pain Code(s): M54.9 - Dorsalgia, unspecified; G89.29 - Other chronic pain Status: Acute (6) End-stage renal disease on peritoneal dialysis: Code(s): N18.6 - End stage renal disease; Z99.2 - Dependence on renal dialysis Status: Chronic (7) Polycystic kidney disease: Code(s): Q61.3 - Polycystic kidney, unspecified Status: Chronic (8) Asthma: Qualifiers: Asthma severity: mild Asthma persistence: intermittent Asthma complication type: uncomplicated Qualified Code(s): J45.20 - Mild intermittent asthma, uncomplicated Code(s): J45.909 - Unspecified asthma, uncomplicated Status: Acute (9) HTN (hypertension): Onset Date: ~1983 Qualifiers: Hypertension type: essential hypertension Qualified Code(s): I10 - Essential (primary) hypertension Code(s): I10 - Essential (primary) hypertension Status: Acute (10) Diabetes mellitus: Onset Date: ~1995 Qualifiers: Diabetes mellitus type: type 2 Diabetes mellitus intermediate manager insulin use: without intermediate manager use Diabetes mellitus complication status: without complication Qualified Code(s): E11.9 - Type 2 diabetes mellitus without complications Code(s): E11.9 - Type 2 diabetes mellitus without complications Status: Acute Plan # Right flank pain UA consistent with UTI. Leukocytosis [address] abdomen pelvis with new 4.6 cm mass in the right kidney with adjust sent fat stranding with numerous cyst and hemorrhagic cyst in the kidneys. To consider CT or MRI with and without contrast. Levofloxacin received in the ER. Will give another 250. Dose to 750 mg for pyelonephritis and followed by 500 mg every 48 hours. Urine culture not done as the sample was discarded. Will preop in the sample if possible # right kidney mass does have underlying right polycystic kidney. Urology consulted. MRI abdomen done which was reviewed. # Nodular liver suspicious for cirrhosis # Anemia of chronic disease related to underlying end-stage renal disease # Polycystic kidney disease # End-stage renal disease on peritoneal dialysis nephrology consultation for continuation of peritoneal dialysis while inpatient # Chronic back pain # Hypothyroidism # GERD # Type 2 diabetes mellitus on oral hypoglycemic agent # Gout # Asthma # Hypertension # DVT prophylaxis:heparin sq Subjective Date/time seen: 06/17/22 13:16 Interval history: Reports some upper respiratory congestion. Flank pain is better. No further bleed in urine as she has not passed urine since then. No fever chills. Review of Systems Review of Systems: All systems reviewed & are unremarkable except as noted in HPI and below Exam Narrative: GENERAL: The patient is well developed, not in acute distress HEENT: Nonicteric sclerae, PERRLA, EOMI. Oropharynx clear. Moist mucous membranes. Conjunctivae appear well perfused. CHEST: Chest wall is nontender. HEART: Regular rate and rhythm without murmur, rubs, or gallops LUNGS: Clear to auscultation bilaterally. no respiratory di
[2022-06-17 14:00] VITALS: BP 135/54; PULSE 95; RESP 18; TEMP 36.3; O2SAT 99
--- NOTE | 2022-06-17 14:30 | P.PNNP_ITS ---
Progress Note: A&P Assessment and Plan (1) End stage renal disease: Code(s): N18.6 - End stage renal disease Status: Chronic Assessment and Plan: * continue nightly CCPD * follow electrolytes, volume status, and clearance (2) Acute pyelonephritis: Code(s): N10 - Acute pyelonephritis Status: Acute Assessment and Plan: * as suggested by UA/UTI and flank pain * follow culture results * on antibiotics (3) Polycystic kidney disease: Code(s): Q61.3 - Polycystic kidney, unspecified Status: Chronic Assessment and Plan: * known history * Urology recommendations noted (4) HTN (hypertension): Onset Date: ~1983 Qualifiers: Hypertension type: essential hypertension Qualified Code(s): I10 - Essential (primary) hypertension Code(s): I10 - Essential (primary) hypertension Status: Chronic Assessment and Plan: * reasonable control * follow trend of hemodynamics (5) Anemia: Code(s): D64.9 - Anemia, unspecified Status: Chronic Assessment and Plan: * due to ESRD and acute illness * Epogen 3x/week * follow H/H (6) Diabetes mellitus: Onset Date: ~1995 Qualifiers: Diabetes mellitus type: type 2 Diabetes mellitus terminal operations supervisor insulin use: without half-way use Diabetes mellitus complication status: without complication Qualified Code(s): E11.9 - Type 2 diabetes mellitus without complications Code(s): E11.9 - Type 2 diabetes mellitus without complications Status: Chronic Assessment and Plan: * follow accuchecks * glycemic control Will continue to follow. Subjective Date/time seen: 06/17/22 14:30 Tolerated peritoneal dialysis treatment overnight without any issues or problems; still does not feel very well -- issues with nausea and vomiting although report her flank pain is a bit better; feels weak and fatigued at the time of my visit. Exam Narrative: General: WD/WN female in NAD Heart: normal S1 and S2; no rub Lungs: clear to auscultation Abdomen: soft, nontender, nondistended, positive bowel sounds Extremities: no cyanosis or clubbing; no edema Skin: warm and dry Objective Data Vital Signs Vital Signs: Vital Signs Temp Pulse Resp BP Pulse Ox O2 Del Method 06/17/22 14:00 97.4 F L 95 18 135/54 L 99 06/17/22 08:00 Room Air 06/17/22 07:45 97.4 F L 96 18 105/58 L 06/17/22 06:40 97.4 F L 96 16 105/58 L 98 06/16/22 20:00 Room Air 06/16/22 21:23 97.3 F L 96 16 121/64 96 06/16/22 18:00 98 F 89 20 143/70 H Room Air Intake/Output Intake/Output: Intake & Output 06/14/22 06/15/22 06/16/22 06/17/22 23:59 23:59 23:59 23:59 Intake Total 880 1120 Output Total 1 1134 Balance 879 -594 Meds/Results Medications: Active Medications Generic Name Dose Route Start Last Admin Trade Name Freq PRN Reason Stop Dose Admin Allopurinol 150 mg 06/17/22 09:00 06/17/22 09:28 Allopurinol 150 Mg Tablet PO 150 mg DAILY CONSTANZA Administration Cyclobenzaprine HCl 10 mg 06/16/22 13:02 Cyclobenzaprine Hcl 10 Mg Table
--- NOTE | 2022-06-17 14:30 | PM.PNNEP ---
Progress Note: A&P Assessment and Plan (1) End stage renal disease: Code(s): N18.6 - End stage renal disease Status: Chronic Assessment and Plan: continue nightly CCPD follow electrolytes, volume status, and clearance (2) Acute pyelonephritis: Code(s): N10 - Acute pyelonephritis Status: Acute Assessment and Plan: as suggested by UA/UTI and flank pain follow culture results on antibiotics (3) Polycystic kidney disease: Code(s): Q61.3 - Polycystic kidney, unspecified Status: Chronic Assessment and Plan: known history Urology recommendations noted (4) HTN (hypertension): Onset Date: ~1983 Qualifiers: Hypertension type: essential hypertension Qualified Code(s): I10 - Essential (primary) hypertension Code(s): I10 - Essential (primary) hypertension Status: Chronic Assessment and Plan: reasonable control follow trend of hemodynamics (5) Anemia: Code(s): D64.9 - Anemia, unspecified Status: Chronic Assessment and Plan: due to ESRD and acute illness Epogen 3x/week follow H/H (6) Diabetes mellitus: Onset Date: ~1995 Qualifiers: Diabetes mellitus type: type 2 Diabetes mellitus manager long term care insulin use: without manager long term care use Diabetes mellitus complication status: without complication Qualified Code(s): E11.9 - Type 2 diabetes mellitus without complications Code(s): E11.9 - Type 2 diabetes mellitus without complications Status: Chronic Assessment and Plan: follow accuchecks glycemic control Will continue to follow. Subjective Date/time seen: 06/17/22 14:30 Tolerated peritoneal dialysis treatment overnight without any issues or problems; still does not feel very well -- issues with nausea and vomiting although report her flank pain is a bit better; feels weak and fatigued at the time of my visit. Exam Narrative: General: WD/WN female in NAD Heart: normal S1 and S2; no rub Lungs: clear to auscultation Abdomen: soft, nontender, nondistended, positive bowel sounds Extremities: no cyanosis or clubbing; no edema Skin: warm and dry Objective Data Vital Signs Vital Signs: Vital Signs Temp Pulse Resp BP Pulse Ox O2 Del Method 06/17/22 14:00 97.4 F L 95 18 135/54 L 99 06/17/22 08:00 Room Air 06/17/22 07:45 97.4 F L 96 18 105/58 L 06/17/22 06:40 97.4 F L 96 16 105/58 L 98 06/16/22 20:00 Room Air 06/16/22 21:23 97.3 F L 96 16 121/64 96 06/16/22 18:00 98 F 89 20 143/70 H Room Air Intake/Output Intake/Output: Intake & Output 06/14/22 06/15/22 06/16/22 06/17/22 23:59 23:59 23:59 23:59 Intake Total 880 1120 Output Total 1 1714 Balance 879 -594 Meds/Results Medications: Active Medications Generic Name Dose Route Start Last Admin Trade Name Freq PRN Reason Stop Dose Admin Allopurinol 150 mg 06/17/22 09:00 06/17/22 09:28 Allopurinol 150 Mg Tablet PO 150 mg DAILY CONSTANZA Administration Cyclobenzaprine HCl 10 mg 06/16/22 13:02 Cyclobenzaprine Hcl 10 Mg Tablet PO DAILY PRN muscle spasm Dextrose 12.5 gm 06/16/22 12:58 Dextrose 50% 25 Gm/50 Ml Syringe IV PUSH PRN PRN Hypoglycemia Protocol Fluticasone Propionate 1 spray 06/16/22 17:00 06/17/22 09:29 Fluticasone Propionate 0.05% Na Spr 16 Gm Btl (*Bkc) NASAL 1 spray BID CONSTANZA Administration Furosemide 80 mg 06/16/22 17:00 06/17/22 09:28 Furosemide 80 Mg Tablet PO 80 mg BID CONSTANZA Administration Glucagon 1 mg 06/16/22 12:58 Glucagon For Inj 1 Mg Vial IM PRN PRN Hypoglycemia Protocol Glucose 15 gm 06/16/22 12:58 Glucose Oral Gel 15 Gm Of Glucse In 37.5 Gm Tube PO PRN PRN Hypoglycemia Protocol Heparin Sodium (Porcine) 5,000 units 06/16/22 21:00 06/17/22 09:28 Heparin Sodium 5,000 Units/Ml Vial SUB-Q
[2022-06-17] MEDS: ONDANSETRON HCL ODT 4 MG TABLET PO (15:15)
[2022-06-17 16:29] LABS: Glucose Point of Care 174 mg/dl (65-105)
[2022-06-17] MEDS: PANTOPRAZOLE 40 MG TABLET PO (17:07)
[2022-06-17 21:11] LABS: Glucose Point of Care 228 mg/dl (65-105)
[2022-06-17 22:00] VITALS: BP 97/41; PULSE 106; RESP 20; TEMP 37; O2SAT 96
[2022-06-17 22:10] VITALS: O2SAT 98
[2022-06-18] MEDS: MIDODRINE HCL 2.5 MG TABLET 5 MG PO (01:11)
[2022-06-18] MEDS: MIDODRINE HCL 10 MG TABLET PO (01:11)
[2022-06-18] MEDS: ONDANSETRON HCL ODT 4 MG TABLET PO ×2 (03:04→17:05)
[2022-06-18 03:13] VITALS: BP 124/59; PULSE 94; RESP 18; TEMP 36.7; O2SAT 97
[2022-06-18] MEDS: SUMAtriptan SUCCINATE 6 MG/0.5 ML VIAL SUB-Q (03:22)
[2022-06-18 06:00] VITALS: BP 91/44; PULSE 100; RESP 18; TEMP 36.3; O2SAT 99
[2022-06-18] MEDS: LEVOTHYROXINE SODIUM 12.5 MCG TABLET PO (06:30)
[2022-06-18 07:00] VITALS: BP 115/75; PULSE 77; RESP 16; TEMP 36.8
[2022-06-18 07:27] LABS: Basophils Absolute Auto 0.1 K/mm3 (0.0-0.1); Basophils Percent Auto 0.5 % (0.2-1.2); Eosinophils Absolute Auto 0.2 K/mm3 (0-0.3); Eosinophils Percent Auto 1.5 % (0-4.4); Hematocrit 27.7 % (37.0-47.0); Hemoglobin 8.7 g/dL (12.0-15.0); Immature Granulocyte Absolute 0.17 K/mm3 (0.00-0.031); Immature Granulocyte Percent A 1.4 % (0-0.5); Lymphocytes Absolute Auto 0.55 K/mm3 (0.9-3.2); Lymphocytes Percent Auto 4.4 % (18.3-44.2); Mean Corpuscular HGB Conc 31.4 g/dl (32-36); Mean Corpuscular Volume 101.8 fl (80-100); Mean Platelet Volume 9.7 fl (7.4-10.4); Monocytes Absolute Auto 0.4 K/mm3 (0.1-0.6); Neutrophils Percent Auto 89.2 % (45.5-73.1); Platelet Count Result 267 k/mm3 (150-375); Red Blood Count 2.72 M/mm3 (4.2-5.4); Red Cell Distribution Width 15.5 % (11.5-14.5); White Blood Count 12.4 K/mm3 (4.5-10.0)
[2022-06-18 07:43] LABS: Alanine Aminotransferase 13 U/L (6-35); Alkaline Phosphatase 92 U/L (38-126); Anion Gap 19 mmol/L (8-16); Aspartate Amino Transferase 21 U/L (14-36); Bilirubin,Total 0.5 mg/dL (0.2-1.3); Blood Urea Nitrogen 56 mg/dL (7-17); Calcium 8.5 mg/dL (8.4-10.2); Carbon Dioxide 22 mmol/L (22-30); Chloride 90 mmol/L (98-107); Glucose 168 mg/dL (65-110); Magnesium 2.9 mg/dL (1.6-2.3); Potassium 3.9 mmol/L (3.4-5.0); Sodium 131 mmol/L (137-145)
[2022-06-18 07:50] LABS: Estimated CRCL calculation 3 ml/min; Estimated Glomerular Filt Rate 2
[2022-06-18 08:16] LABS: Glucose Point of Care 171 mg/dl (65-105)
[2022-06-18] MEDS: SEVELAMER CARBONATE 800 MG TABLET 5600 MG PO ×3 (08:40→17:04)
[2022-06-18] MEDS: CHOLECALCIFEROL 1,000 UNITS TABLET 2000 UNITS PO ×2 (08:43→17:05)
[2022-06-18] MEDS: lisinopriL 5 MG TABLET PO (08:43)
[2022-06-18] MEDS: VITAMIN B CMPLX/VIT C/FOLIC AC 1 CAPSULE 1 CAP PO (08:43)
[2022-06-18] MEDS: PIOGLITAZONE HCL 30 MG TABLET PO (08:43)
[2022-06-18] MEDS: FUROSEMIDE 80 MG TABLET PO (08:43)
[2022-06-18] MEDS: allopurinoL 150 MG TABLET PO (08:44)
[2022-06-18] MEDS: HEPARIN SODIUM 5,000 UNITS/ML VIAL 5000 UNITS SUB-Q ×2 (08:44→21:15)
[2022-06-18] MEDS: polyethylene glycoL 3350 17 GM POWD.PACK PO (08:44)
[2022-06-18] MEDS: FLUTICASONE PROPIONATE 0.05% NA SPR 16 GM BTL (*BKC) 1 SPRAY NASAL ×2 (08:44→17:05)
[2022-06-18] MEDS: levoFLOXacin 500 MG/D5W 100 ML 500 MG/100 ML BAG 100 MG IVPB (08:45)
[2022-06-18] MEDS: EPOETIN ALFA-EPBX 10,000 UNITS/ML VIAL 10000 UNITS SUB-Q (09:31)
[2022-06-18 11:38] LABS: Glucose Point of Care 183 mg/dl (65-105)
--- NOTE | 2022-06-18 12:27 | P.PNNP_ITS ---
Progress Note: A&P Assessment and Plan (1) End stage renal disease: Code(s): N18.6 - End stage renal disease Status: Chronic Assessment and Plan: * continue nightly CCPD * her dialysis adequacy is good at home. * She has significant nausea and vomiting now. * Could this be under dialysis? Possibly the infection has increased her catabolic state. This would explain her very high creatinine. Will try incr easing dialysis dose. * Electrolytes okay. * Volume status looks okay. (2) Acute pyelonephritis: Code(s): N10 - Acute pyelonephritis Status: Acute Assessment and Plan: * as suggested by UA/UTI and flank pain * On Levaquin. This penetrates these cyst ngo. * Urine culture pending. (3) Polycystic kidney disease: Code(s): Q61.3 - Polycystic kidney, unspecified Status: Chronic Assessment and Plan: * known history * Urology recommendations noted (4) HTN (hypertension): Onset Date: ~1983 Qualifiers: Hypertension type: essential hypertension Qualified Code(s): I10 - Essential (primary) hypertension Code(s): I10 - Essential (primary) hypertension Status: Chronic Assessment and Plan: * reasonable control * follow trend of hemodynamics (5) Anemia: Code(s): D64.9 - Anemia, unspecified Status: Chronic Assessment and Plan: * due to ESRD and acute illness * Epogen 3x/week * Hemoglobin in the mid 8s. (6) Diabetes mellitus: Onset Date: ~1995 Qualifiers: Diabetes mellitus type: type 2 Diabetes mellitus [facility] insulin use: without domestic maid use Diabetes mellitus complication status: without complication Qualified Code(s): E11.9 - Type 2 diabetes mellitus without complications Code(s): E11.9 - Type 2 diabetes mellitus without complications Status: Chronic Assessment and Plan: * On Accu-Cheks and sliding-scale insulin per hospitalist. Subjective Date/time seen: 06/18/22 12:27 Interval history: 06/18/2022 Courtney has nausea and vomiting. This is been going on since admission. She denies any belly pain. No blood in her stools. No blood in her vomitus. She is getting peritoneal dialysis every night. Exam Narrative: General: WD/WN female in NAD Heart: normal S1 and S2; no rub Lungs: clear to auscultation Abdomen: soft, nontender, nondistended, positive bowel sounds Extremities: no edema Skin: No rash Objective Data Vital Signs Vital Signs: Vital Signs - 24 hr 06/17/22 14:00 06/17/22 22:00 06/17/22 20:00 Temperature 97.4 F L 98.6 F Pulse Rate 95 106 H Respiratory Rate 18 20 Blood Pressure 135/54 L 97/41 L Pulse Oximetry 99 96 Oxygen Delivery Room Air 06/18/22 03:13 06/17/22 22:10 06/18/22 06:00 Temperature 98.1 F 97.4 F L Pulse Rate 94 100 Respiratory Rate 18 18 Blood Pressure 124/59 L 91/44 L Pulse Oximetry 97 98 99 Oxygen Delivery Room Air 06/18/22 07:00 06/18/22 08:30 Temperature 98.2 F Pulse Rate 77 Respiratory Rate 16 Blood Pressure 115/75 Pulse Oximetry Oxygen Delivery Room Air Intake/Output Intake/Output: Intake
--- NOTE | 2022-06-18 12:27 | PM.PNNEP ---
Progress Note: A&P Assessment and Plan (1) End stage renal disease: Code(s): N18.6 - End stage renal disease Status: Chronic Assessment and Plan: continue nightly CCPD her dialysis adequacy is good at home. She has significant nausea and vomiting now. Could this be under dialysis? Possibly the infection has increased her catabolic state. This would explain her very high creatinine. Will try increasing dialysis dose. Electrolytes okay. Volume status looks okay. (2) Acute pyelonephritis: Code(s): N10 - Acute pyelonephritis Status: Acute Assessment and Plan: as suggested by UA/UTI and flank pain On Levaquin. This penetrates these cyst ngo. Urine culture pending. (3) Polycystic kidney disease: Code(s): Q61.3 - Polycystic kidney, unspecified Status: Chronic Assessment and Plan: known history Urology recommendations noted (4) HTN (hypertension): Onset Date: ~1983 Qualifiers: Hypertension type: essential hypertension Qualified Code(s): I10 - Essential (primary) hypertension Code(s): I10 - Essential (primary) hypertension Status: Chronic Assessment and Plan: reasonable control follow trend of hemodynamics (5) Anemia: Code(s): D64.9 - Anemia, unspecified Status: Chronic Assessment and Plan: due to ESRD and acute illness Epogen 3x/week Hemoglobin in the mid 8s. (6) Diabetes mellitus: Onset Date: ~1995 Qualifiers: Diabetes mellitus type: type 2 Diabetes mellitus fdc insulin use: without fdc use Diabetes mellitus complication status: without complication Qualified Code(s): E11.9 - Type 2 diabetes mellitus without complications Code(s): E11.9 - Type 2 diabetes mellitus without complications Status: Chronic Assessment and Plan: On Accu-Cheks and sliding-scale insulin per hospitalist. Subjective Date/time seen: 06/18/22 12:27 Interval history: 06/18/2022 Courtney has nausea and vomiting. This is been going on since admission. She denies any belly pain. No blood in her stools. No blood in her vomitus. She is getting peritoneal dialysis every night. Exam Narrative: General: WD/WN female in NAD Heart: normal S1 and S2; no rub Lungs: clear to auscultation Abdomen: soft, nontender, nondistended, positive bowel sounds Extremities: no edema Skin: No rash Objective Data Vital Signs Vital Signs: Vital Signs - 24 hr 06/17/22 14:00 06/17/22 22:00 06/17/22 20:00 Temperature 97.4 F L 98.6 F Pulse Rate 95 106 H Respiratory Rate 18 20 Blood Pressure 135/54 L 97/41 L Pulse Oximetry 99 96 Oxygen Delivery Room Air 06/18/22 03:13 06/17/22 22:10 06/18/22 06:00 Temperature 98.1 F 97.4 F L Pulse Rate 94 100 Respiratory Rate 18 18 Blood Pressure 124/59 L 91/44 L Pulse Oximetry 97 98 99 Oxygen Delivery Room Air 06/18/22 07:00 06/18/22 08:30 Temperature 98.2 F Pulse Rate 77 Respiratory Rate 16 Blood Pressure 115/75 Pulse Oximetry Oxygen Delivery Room Air Intake/Output Intake/Output: Intake & Output 06/15/22 06/16/22 06/17/22 06/18/22 23:59 23:59 23:59 23:59 Intake Total 880 1220 340 Output Total 1 5950 748 Balance 292 -672 -688 Meds/Results Medications: Active Medications Generic Name Dose Route Start Last Admin Trade Name Freq PRN Reason Stop Dose Admin Allopurinol 150 mg 06/17/22 09:00 06/18/22 08:44 Allopurinol 150 Mg Tablet PO 150 mg DAILY CONSTANZA Administration Cyclobenzaprine HCl 10 mg 06/16/22 13:02 Cyclobenzaprine Hcl 10 Mg Tablet PO DAILY PRN muscle spasm Dextrose 12.5 gm 06/16/22 12:58 Dextrose 50% 25 Gm/50 Ml Syringe IV PUSH PRN PRN Hypoglycemia Protocol Epoetin Odilon-epbx 10,000 units 06/18/22 09:00 06/18/22 09:31 Epoetin Odilon-Epbx 10,000 Units/Ml Vial SUB-Q 10,000 u
[2022-06-18 13:36] VITALS: BP 80/42; PULSE 95; RESP 16; TEMP 36.4; O2SAT 96
--- NOTE | 2022-06-18 13:39 | PM.IMPN ---
Progress Note: A&P Assessment and Plan (1) Acute pyelonephritis: Code(s): N10 - Acute pyelonephritis Status: Acute (2) Peritoneal dialysis catheter in place: Code(s): Z99.2 - Dependence on renal dialysis Status: Acute (3) Hypothyroidism (acquired): Code(s): E03.9 - Hypothyroidism, unspecified Status: Acute (4) GERD (gastroesophageal reflux disease): Qualifiers: Esophagitis presence: without esophagitis Qualified Code(s): K21.9 - Gastro-esophageal reflux disease without esophagitis Code(s): K21.9 - Gastro-esophageal reflux disease without esophagitis Status: Acute (5) Chronic back pain: Qualifiers: Back pain location: low back pain Back pain laterality: unspecified Sciatica presence: unspecified whether sciatica present Qualified Code(s): M54.5 - Low back pain; G89.29 - Other chronic pain Code(s): M54.9 - Dorsalgia, unspecified; G89.29 - Other chronic pain Status: Acute (6) End-stage renal disease on peritoneal dialysis: Code(s): N18.6 - End stage renal disease; Z99.2 - Dependence on renal dialysis Status: Chronic (7) Polycystic kidney disease: Code(s): Q61.3 - Polycystic kidney, unspecified Status: Chronic (8) Asthma: Qualifiers: Asthma severity: mild Asthma persistence: intermittent Asthma complication type: uncomplicated Qualified Code(s): J45.20 - Mild intermittent asthma, uncomplicated Code(s): J45.909 - Unspecified asthma, uncomplicated Status: Acute (9) HTN (hypertension): Onset Date: ~1983 Qualifiers: Hypertension type: essential hypertension Qualified Code(s): I10 - Essential (primary) hypertension Code(s): I10 - Essential (primary) hypertension Status: Chronic (10) Diabetes mellitus: Onset Date: ~1995 Qualifiers: Diabetes mellitus type: type 2 Diabetes mellitus [facility] insulin use: without watermaster use Diabetes mellitus complication status: without complication Qualified Code(s): E11.9 - Type 2 diabetes mellitus without complications Code(s): E11.9 - Type 2 diabetes mellitus without complications Status: Chronic Plan # Right flank pain UA consistent with UTI. Leukocytosis [address] abdomen pelvis with new 4.6 cm mass in the right kidney with adjust sent fat stranding with numerous cyst and hemorrhagic cyst in the kidneys. To consider CT or MRI with and without contrast. Levofloxacin received in the ER. Will give another 250. Dose to 750 mg for pyelonephritis and followed by 500 mg every 48 hours. Urine culture not done as the sample was discarded. Another sample sent. Pending urine culture. Ongoing nausea and vomiting. CT and MRI reviewed. This could also be related to her uremia. She is getting increasing dose of dialysis tonight per Nephrology to see if this will help alleviate her symptoms. Will try Compazine which has worked for her in the past # right kidney mass does have underlying right polycystic kidney. Urology consulted. MRI abdomen done which was reviewed. # Nodular liver suspicious for cirrhosis # Anemia of chronic disease related to underlying end-stage renal disease # Polycystic kidney disease # End-stage renal disease on peritoneal dialysis nephrology consultation for continuation of peritoneal dialysis while inpatient # Chronic back pain # Hypothyroidism # GERD # Type 2 diabetes mellitus on oral hypoglycemic agent # Gout # Asthma # Hypertension # DVT prophylaxis:heparin sq Subjective Date/time seen: 06/18/22 13:39 Interval history: Reports some nausea which has been ongoing. Vomiting present. Abdominal pain is improved. Not able to eat a whole lot. Zofran only helps some. Denies any fever chills. Was able to urinate a little bit yesterday. No further blood in urine. Review of Systems Review of Systems: All systems reviewed & are unremarkable except as noted in
[2022-06-18] MEDS: PROCHLORPERAZINE MALEATE 5 MG TABLET 10 MG PO (15:14)
[2022-06-18 16:45] LABS: Glucose Point of Care 172 mg/dl (65-105)
[2022-06-18 16:46] VITALS: BP 101/56; PULSE 95; RESP 16; TEMP 36.4
[2022-06-18] MEDS: PANTOPRAZOLE 40 MG TABLET PO (17:05)
[2022-06-18 21:21] LABS: Glucose Point of Care 202 mg/dl (65-105)
[2022-06-18 21:52] VITALS: BP 105/48; PULSE 102; RESP 14; TEMP 37.6; O2SAT 96
[2022-06-19 06:00] VITALS: BP 118/49; PULSE 91; RESP 14; TEMP 36.5; O2SAT 98
[2022-06-19] MEDS: LEVOTHYROXINE SODIUM 12.5 MCG TABLET PO (06:12)
[2022-06-19 06:50] LABS: Basophils Absolute Auto 0.1 K/mm3 (0.0-0.1); Basophils Percent Auto 0.6 % (0.2-1.2); Eosinophils Absolute Auto 0.5 K/mm3 (0-0.3); Eosinophils Percent Auto 3.7 % (0-4.4); Hematocrit 27.8 % (37.0-47.0); Hemoglobin 8.6 g/dL (12.0-15.0); Immature Granulocyte Absolute 0.45 K/mm3 (0.00-0.031); Immature Granulocyte Percent A 3.7 % (0-0.5); Lymphocytes Percent Auto 6.6 % (18.3-44.2); Mean Corpuscular HGB Conc 30.9 g/dl (32-36); Mean Corpuscular Hemoglobin 31.4 pg (26-34); Mean Corpuscular Volume 101.5 fl (80-100); Mean Platelet Volume 9.3 fl (7.4-10.4); Monocytes Absolute Auto 0.5 K/mm3 (0.1-0.6); Monocytes Percent Auto 4.2 % (2.6-8.5); Neutrophils Absolute Auto 9.9 K/mm3 (1.3-6.7); Neutrophils Percent Auto 81.2 % (45.5-73.1); Nucleated Red Blood Cells Perc 0.2 % (0.0-0.2); Platelet Count Result 255 k/mm3 (150-375); Red Blood Count 2.74 M/mm3 (4.2-5.4); Red Cell Distribution Width 15.5 % (11.5-14.5); White Blood Count 12.1 K/mm3 (4.5-10.0)
[2022-06-19 07:08] LABS: Alanine Aminotransferase 14 U/L (6-35); Albumin Level 3.2 g/dL (3.5-5.1); Alkaline Phosphatase 118 U/L (38-126); Anion Gap 17 mmol/L (8-16); Aspartate Amino Transferase 25 U/L (14-36); Bilirubin,Total 0.4 mg/dL (0.2-1.3); Blood Urea Nitrogen 53 mg/dL (7-17); Calcium 8.6 mg/dL (8.4-10.2); Carbon Dioxide 23 mmol/L (22-30); Chloride 87 mmol/L (98-107); Glucose 199 mg/dL (65-110); Lipase 84 U/L (23-300); Magnesium 2.9 mg/dL (1.6-2.3); Potassium 3.6 mmol/L (3.4-5.0); Sodium 127 mmol/L (137-145)
[2022-06-19 07:17] LABS: Estimated CRCL calculation 3 ml/min; Estimated Glomerular Filt Rate 2
[2022-06-19 08:20] LABS: Glucose Point of Care 188 mg/dl (65-105)
[2022-06-19] MEDS: CHOLECALCIFEROL 1,000 UNITS TABLET 2000 UNITS PO ×2 (08:56→17:56)
[2022-06-19] MEDS: FLUTICASONE PROPIONATE 0.05% NA SPR 16 GM BTL (*BKC) 1 SPRAY NASAL ×2 (08:56→17:56)
[2022-06-19] MEDS: allopurinoL 150 MG TABLET PO (08:56)
[2022-06-19] MEDS: SEVELAMER CARBONATE 800 MG TABLET 5600 MG PO ×3 (08:56→17:56)
[2022-06-19] MEDS: FUROSEMIDE 80 MG TABLET PO ×2 (08:56→17:56)
[2022-06-19] MEDS: PIOGLITAZONE HCL 30 MG TABLET PO (08:57)
[2022-06-19] MEDS: lisinopriL 5 MG TABLET PO (08:57)
[2022-06-19] MEDS: polyethylene glycoL 3350 17 GM POWD.PACK PO (08:57)
[2022-06-19] MEDS: VITAMIN B CMPLX/VIT C/FOLIC AC 1 CAPSULE 1 CAP PO (08:57)
[2022-06-19] MEDS: HEPARIN SODIUM 5,000 UNITS/ML VIAL 5000 UNITS SUB-Q ×2 (09:03→20:54)
--- NOTE | 2022-06-19 10:31 | PM.PNNEP ---
Progress Note: A&P Assessment and Plan (1) End stage renal disease: Code(s): N18.6 - End stage renal disease Status: Chronic Assessment and Plan: continue nightly CCPD her dialysis adequacy is good at home. She has significant nausea and vomiting now. she had more dialysis last night and feels better today. I am not sure if this is causal or coincidence but will continue the higher dose of dialysis. (2) Acute pyelonephritis: Code(s): N10 - Acute pyelonephritis Status: Acute Assessment and Plan: as suggested by UA/UTI and flank pain On Levaquin. This penetrates these cyst ngo. Urine culture pending. (3) Polycystic kidney disease: Code(s): Q61.3 - Polycystic kidney, unspecified Status: Chronic Assessment and Plan: known history Urology recommendations noted no headaches. (4) HTN (hypertension): Onset Date: ~1983 Qualifiers: Hypertension type: essential hypertension Qualified Code(s): I10 - Essential (primary) hypertension Code(s): I10 - Essential (primary) hypertension Status: Chronic Assessment and Plan: Blood pressure is under good contro (5) Anemia: Code(s): D64.9 - Anemia, unspecified Status: Chronic Assessment and Plan: due to ESRD and acute illness hemoglobin 8.6. Epogen 3x/week (6) Diabetes mellitus: Onset Date: ~1995 Qualifiers: Diabetes mellitus type: type 2 Diabetes mellitus meterman insulin use: without meterman use Diabetes mellitus complication status: without complication Qualified Code(s): E11.9 - Type 2 diabetes mellitus without complications Code(s): E11.9 - Type 2 diabetes mellitus without complications Status: Chronic Assessment and Plan: On Accu-Cheks and sliding-scale insulin per hospitalist. Subjective Date/time seen: 06/19/22 10:31 Interval history: 06/18/2022 Courtney has nausea and vomiting. This is been going on since admission. She denies any belly pain. No blood in her stools. No blood in her vomitus. She is getting peritoneal dialysis every night. 06/19/2022 patient is on peritoneal dialysis. Fluid is clear. 626cc came off. The patient did not eat much at all yesterday. Almost everything she put in her mouth she throughout. Today she feels better. Nausea is better and she has not thrown up yet. No chest pain or shortness of breath. Exam Narrative: General: WD/WN female in NAD Heart: normal S1 and S2; no rub Lungs: clear Abdomen: soft, nontender, nondistended, positive bowel sounds Extremities: no edema Skin: No rash olr subcu nodules Objective Data Vital Signs Vital Signs: Vital Signs - 24 hr 06/18/22 13:36 06/18/22 16:46 06/18/22 21:52 Temperature 97.6 F 97.6 F 99.6 F Pulse Rate 95 95 102 H Respiratory Rate 16 16 14 Blood Pressure 80/42 L 101/56 L 105/48 L Pulse Oximetry 96 96 Oxygen Delivery 06/18/22 20:00 06/19/22 06:00 06/19/22 08:56 Temperature 97.7 F Pulse Rate 91 Respiratory Rate 14 Blood Pressure 118/49 L Pulse Oximetry 98 Oxygen Delivery Room Air Room Air Intake/Output Intake/Output: Intake & Output 06/16/22 06/17/22 06/18/22 06/19/22 23:59 23:59 23:59 23:59 Intake Total 880 1220 1250 860 Output Total 1 1714 1062 Balance 879 -494 188 860 Meds/Results Medications: Active Medications Generic Name Dose Route Start Last Admin Trade Name Freq PRN Reason Stop Dose Admin Allopurinol 150 mg 06/17/22 09:00 06/19/22 08:56 Allopurinol 150 Mg Tablet PO 150 mg DAILY CONSTAZNA Administration Cyclobenzaprine HCl 10 mg 06/16/22 13:02 Cyclobenzaprine Hcl 10 Mg Tablet PO DAILY PRN muscle spasm Dextrose 12.5 gm 06/16/22 12:58 Dextrose 50% 25 Gm/50 Ml Syringe IV PUSH PRN PRN Hypoglycemia Protocol Epoetin Odilon-epbx 10,000 units 06/18/22 09:00 06/18
[2022-06-19 11:33] LABS: Glucose Point of Care 261 mg/dl (65-105)
[2022-06-19] MEDS: ONDANSETRON HCL ODT 4 MG TABLET PO (11:34)
[2022-06-19] MEDS: INSULIN ASPART (*BKC) 100 UNITS/ML SUB-Q (11:35)
--- NOTE | 2022-06-19 13:19 | PM.IMPN ---
Progress Note: A&P Assessment and Plan (1) Acute pyelonephritis: Code(s): N10 - Acute pyelonephritis Status: Acute (2) Peritoneal dialysis catheter in place: Code(s): Z99.2 - Dependence on renal dialysis Status: Acute (3) Hypothyroidism (acquired): Code(s): E03.9 - Hypothyroidism, unspecified Status: Acute (4) GERD (gastroesophageal reflux disease): Qualifiers: Esophagitis presence: without esophagitis Qualified Code(s): K21.9 - Gastro-esophageal reflux disease without esophagitis Code(s): K21.9 - Gastro-esophageal reflux disease without esophagitis Status: Acute (5) Chronic back pain: Qualifiers: Back pain location: low back pain Back pain laterality: unspecified Sciatica presence: unspecified whether sciatica present Qualified Code(s): M54.5 - Low back pain; G89.29 - Other chronic pain Code(s): M54.9 - Dorsalgia, unspecified; G89.29 - Other chronic pain Status: Acute (6) End-stage renal disease on peritoneal dialysis: Code(s): N18.6 - End stage renal disease; Z99.2 - Dependence on renal dialysis Status: Chronic (7) Polycystic kidney disease: Code(s): Q61.3 - Polycystic kidney, unspecified Status: Chronic (8) Asthma: Qualifiers: Asthma severity: mild Asthma persistence: intermittent Asthma complication type: uncomplicated Qualified Code(s): J45.20 - Mild intermittent asthma, uncomplicated Code(s): J45.909 - Unspecified asthma, uncomplicated Status: Acute (9) HTN (hypertension): Onset Date: ~1983 Qualifiers: Hypertension type: essential hypertension Qualified Code(s): I10 - Essential (primary) hypertension Code(s): I10 - Essential (primary) hypertension Status: Chronic (10) Diabetes mellitus: Onset Date: ~1995 Qualifiers: Diabetes mellitus type: type 2 Diabetes mellitus halfway insulin use: without superintendent terminal use Diabetes mellitus complication status: without complication Qualified Code(s): E11.9 - Type 2 diabetes mellitus without complications Code(s): E11.9 - Type 2 diabetes mellitus without complications Status: Chronic Plan # Right flank pain UA consistent with UTI. Leukocytosis [address] abdomen pelvis with new 4.6 cm mass in the right kidney with adjust sent fat stranding with numerous cyst and hemorrhagic cyst in the kidneys. To consider CT or MRI with and without contrast. Levofloxacin received in the ER. Will give another 250. Dose to 750 mg for pyelonephritis and followed by 500 mg every 48 hours. Urine culture not done as the sample was discarded. Another sample sent. urine culture no growth Ongoing nausea and vomiting. CT and MRI reviewed. This could also be related to her uremia. She is getting increasing dose of dialysis tonight per Nephrology to see if this will help alleviate her symptoms. Will try Compazine which has worked for her in the past Continue to monitor with supportive care. # right kidney mass does have underlying right polycystic kidney. Urology consulted. MRI abdomen done which was reviewed. # Nodular liver suspicious for cirrhosis # Anemia of chronic disease related to underlying end-stage renal disease # Polycystic kidney disease # End-stage renal disease on peritoneal dialysis nephrology consultation for continuation of peritoneal dialysis while inpatient # Chronic back pain # Hypothyroidism # GERD # Type 2 diabetes mellitus on oral hypoglycemic agent # Gout # Asthma # Hypertension # DVT prophylaxis:heparin sq Subjective Date/time seen: 06/19/22 13:19 Interval history: feels a bit better today. Nausea improved with Compazine. Feels a little lightheaded today. Remains afebrile. No vomiting. Denies any abdominal pain. Flank pain Has improved. Review of Systems Review of Systems: All systems reviewed & are unremarkable except as noted in HPI and below
[2022-06-19 14:00] VITALS: BP 108/56; PULSE 106; RESP 20; TEMP 37.2; O2SAT 100
--- NOTE | 2022-06-19 14:18 | PCOTNOTE ---
Cancelling orders for pt. evaluation, as she is independent in room. PT spoke with hospitalist who agreed to no need for evaluation. Nursing and pt. in agreement.
[2022-06-19] MEDS: PROCHLORPERAZINE MALEATE 5 MG TABLET 10 MG PO (14:23)
[2022-06-19 16:37] LABS: Glucose Point of Care 186 mg/dl (65-105)
[2022-06-19] MEDS: PANTOPRAZOLE 40 MG TABLET PO (17:57)
[2022-06-19 20:23] LABS: Glucose Point of Care 200 mg/dl (65-105)
--- NOTE | 2022-06-19 20:50 | PC.NURSE ---
Page sent to [facility] dialysis r/t PD; per patient, patient treatment was initiated on 06/18/22 at 1800 and has not yet been discontinued at time of entry for this note. RN will continue to monitor.
[2022-06-19 21:34] VITALS: BP 96/39; PULSE 104; RESP 18; TEMP 36.9; O2SAT 96
[2022-06-19 23:31] VITALS: BP 96/39; PULSE 104; RESP 18; TEMP 36.9
[2022-06-20 05:14] VITALS: BP 111/44; PULSE 102; RESP 18; TEMP 37.1; O2SAT 97
[2022-06-20] MEDS: LEVOTHYROXINE SODIUM 12.5 MCG TABLET PO (05:58)
[2022-06-20 07:46] LABS: Glucose Point of Care 271 mg/dl (65-105)
[2022-06-20 07:59] LABS: Basophils Absolute Auto 0.1 K/mm3 (0.0-0.1); Basophils Percent Auto 0.5 % (0.2-1.2); Eosinophils Absolute Auto 0.4 K/mm3 (0-0.3); Hematocrit 28.1 % (37.0-47.0); Hemoglobin 8.9 g/dL (12.0-15.0); Immature Granulocyte Absolute 0.54 K/mm3 (0.00-0.031); Immature Granulocyte Percent A 3.9 % (0-0.5); Lymphocytes Absolute Auto 0.82 K/mm3 (0.9-3.2); Mean Corpuscular HGB Conc 31.7 g/dl (32-36); Mean Corpuscular Hemoglobin 31.9 pg (26-34); Mean Corpuscular Volume 100.7 fl (80-100); Mean Platelet Volume 9.5 fl (7.4-10.4); Monocytes Absolute Auto 1.1 K/mm3 (0.1-0.6); Monocytes Percent Auto 7.7 % (2.6-8.5); Neutrophils Absolute Auto 10.8 K/mm3 (1.3-6.7); Neutrophils Percent Auto 78.9 % (45.5-73.1); Nucleated Red Blood Cells Perc 0.1 % (0.0-0.2); Platelet Count Result 284 k/mm3 (150-375); Red Blood Count 2.79 M/mm3 (4.2-5.4); Red Cell Distribution Width 15.3 % (11.5-14.5); White Blood Count 13.7 K/mm3 (4.5-10.0)
[2022-06-20] MEDS: INSULIN ASPART (*BKC) 100 UNITS/ML SUB-Q ×2 (08:02→11:48)
[2022-06-20] MEDS: polyethylene glycoL 3350 17 GM POWD.PACK PO (08:06)
[2022-06-20] MEDS: CHOLECALCIFEROL 1,000 UNITS TABLET 2000 UNITS PO ×2 (08:06→17:05)
[2022-06-20] MEDS: FUROSEMIDE 80 MG TABLET PO ×2 (08:07→17:04)
[2022-06-20] MEDS: allopurinoL 150 MG TABLET PO (08:07)
[2022-06-20] MEDS: lisinopriL 5 MG TABLET PO (08:07)
[2022-06-20] MEDS: FLUTICASONE PROPIONATE 0.05% NA SPR 16 GM BTL (*BKC) 1 SPRAY NASAL ×2 (08:07→17:05)
[2022-06-20] MEDS: SEVELAMER CARBONATE 800 MG TABLET 5600 MG PO ×3 (08:07→17:03)
[2022-06-20] MEDS: PIOGLITAZONE HCL 30 MG TABLET PO (08:07)
[2022-06-20] MEDS: VITAMIN B CMPLX/VIT C/FOLIC AC 1 CAPSULE 1 CAP PO (08:08)
[2022-06-20] MEDS: levoFLOXacin 500 MG/D5W 100 ML 500 MG/100 ML BAG 100 MG IVPB (08:08)
[2022-06-20] MEDS: HEPARIN SODIUM 5,000 UNITS/ML VIAL 5000 UNITS SUB-Q ×2 (08:08→19:59)
[2022-06-20 08:13] LABS: Alanine Aminotransferase 14 U/L (6-35); Albumin Level 3.1 g/dL (3.5-5.1); Alkaline Phosphatase 113 U/L (38-126); Anion Gap 17 mmol/L (8-16); Aspartate Amino Transferase 25 U/L (14-36); Bilirubin,Total 0.4 mg/dL (0.2-1.3); Blood Urea Nitrogen 54 mg/dL (7-17); Calcium 8.7 mg/dL (8.4-10.2); Carbon Dioxide 26 mmol/L (22-30); Chloride 87 mmol/L (98-107); Glucose 291 mg/dL (65-110); Magnesium 2.9 mg/dL (1.6-2.3); Potassium 3.8 mmol/L (3.4-5.0); Sodium 130 mmol/L (137-145)
[2022-06-20 08:19] LABS: Estimated CRCL calculation 3 ml/min; Estimated Glomerular Filt Rate 2
--- NOTE | 2022-06-20 10:17 | PC.NURSE ---
pt disconnected from PD dwell by ink technician, pt resting comfortably, states she did not sleep well last night and hopes to get some rest today
[2022-06-20 10:21] VITALS: BP 111/44; PULSE 102; RESP 16; TEMP 37.1
[2022-06-20 11:19] LABS: Glucose Point of Care 284 mg/dl (65-105)
--- NOTE | 2022-06-20 11:36 | P.PNNP_ITS ---
Progress Note: A&P Assessment and Plan (1) End stage renal disease: Code(s): N18.6 - End stage renal disease Status: Chronic Assessment and Plan: * continue nightly CCPD * her dialysis adequacy is good at home * however, she has significant nausea and vomiting currently * she had more dialysis in the last few nights and initially felt better but now fees the same -- will continue the higher dose of dialysis for now (2) Acute pyelonephritis: Code(s): N10 - Acute pyelonephritis Status: Acute Assessment and Plan: * as suggested by UA flank pain * on Levaquin - this penetrates these cyst ngo * urine culture negative (3) Polycystic kidney disease: Code(s): Q61.3 - Polycystic kidney, unspecified Status: Chronic Assessment and Plan: * known history * Urology recommendations noted (4) HTN (hypertension): Onset Date: ~1983 Qualifiers: Hypertension type: essential hypertension Qualified Code(s): I10 - Essential (primary) hypertension Code(s): I10 - Essential (primary) hypertension Status: Chronic Assessment and Plan: * blood pressure is under good control * follow trend of hemodynamics (5) Anemia: Code(s): D64.9 - Anemia, unspecified Status: Chronic Assessment and Plan: * due to ESRD and acute illness * Epogen 3x/week * follow trend of H/H (6) Diabetes mellitus: Onset Date: ~1995 Qualifiers: Diabetes mellitus type: type 2 Diabetes mellitus termite control servicer insulin use: without usp use Diabetes mellitus complication status: without complication Qualified Code(s): E11.9 - Type 2 diabetes mellitus without complications Code(s): E11.9 - Type 2 diabetes mellitus without complications Status: Chronic Assessment and Plan: * on Accu-Cheks and sliding-scale insulin * continue glycemic control Subjective Date/time seen: 06/20/22 11:36 Chart reviewed -- assuming care from Dr. Flowers; tolerated peritoneal dialysis treatment overnight without any issues or problems; major complaint is that of nausea and inability to keep food down; she also feels quite fatigued/tired as well. Exam Narrative: General: WD/WN female in NAD Heart: normal S1 and S2; no rub Lungs: clear anteriorly Abdomen: soft, nontender, nondistended, positive bowel sounds Extremities: no edema Skin: warm and dry Objective Data Vital Signs Vital Signs: Vital Signs Temp Pulse Resp BP Pulse Ox O2 Del Method 06/20/22 08:00 Room Air 06/20/22 10:21 98.7 F 102 H 16 111/44 L 06/20/22 05:14 98.7 F 102 H 18 111/44 L 97 06/19/22 23:31 98.5 F 104 H 18 96/39 L Room Air 06/19/22 21:34 98.5 F 104 H 18 96/39 L 96 06/19/22 14:00 98.9 F 106 H 20 108/56 L 100 Intake/Output Intake/Output: Intake & Output 06/17/22 06/18/22 06/19/22 06/20/22 23:59 23:59 23:59 23:59 Intake Total 1220 1250 1860 940 Output Total 1714 1062 1222 Balance -138 122 4509 -282 Meds/Results Medications: Active Medications Generic Name Dose Route Start Last Admin Trade Name Freq PRN Reason Stop Dose Admin Allopurinol 150 mg
--- NOTE | 2022-06-20 11:36 | PM.PNNEP ---
Progress Note: A&P Assessment and Plan (1) End stage renal disease: Code(s): N18.6 - End stage renal disease Status: Chronic Assessment and Plan: continue nightly CCPD her dialysis adequacy is good at home however, she has significant nausea and vomiting currently she had more dialysis in the last few nights and initially felt better but now fees the same -- will continue the higher dose of dialysis for now (2) Acute pyelonephritis: Code(s): N10 - Acute pyelonephritis Status: Acute Assessment and Plan: as suggested by UA flank pain on Levaquin - this penetrates these cyst ngo urine culture negative (3) Polycystic kidney disease: Code(s): Q61.3 - Polycystic kidney, unspecified Status: Chronic Assessment and Plan: known history Urology recommendations noted (4) HTN (hypertension): Onset Date: ~1983 Qualifiers: Hypertension type: essential hypertension Qualified Code(s): I10 - Essential (primary) hypertension Code(s): I10 - Essential (primary) hypertension Status: Chronic Assessment and Plan: blood pressure is under good control follow trend of hemodynamics (5) Anemia: Code(s): D64.9 - Anemia, unspecified Status: Chronic Assessment and Plan: due to ESRD and acute illness Epogen 3x/week follow trend of H/H (6) Diabetes mellitus: Onset Date: ~1995 Qualifiers: Diabetes mellitus type: type 2 Diabetes mellitus 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 Flowers; tolerated peritoneal dialysis treatment overnight without any issues or problems; major complaint is that of nausea and inability to keep food down; she also feels quite fatigued/tired as well. Exam Narrative: General: WD/WN female in NAD Heart: normal S1 and S2; no rub Lungs: clear anteriorly Abdomen: soft, nontender, nondistended, positive bowel sounds Extremities: no edema Skin: warm and dry Objective Data Vital Signs Vital Signs: Vital Signs Temp Pulse Resp BP Pulse Ox O2 Del Method 06/20/22 08:00 Room Air 06/20/22 10:21 98.7 F 102 H 16 111/44 L 06/20/22 05:14 98.7 F 102 H 18 111/44 L 97 06/19/22 23:31 98.5 F 104 H 18 96/39 L Room Air 06/19/22 21:34 98.5 F 104 H 18 96/39 L 96 06/19/22 14:00 98.9 F 106 H 20 108/56 L 100 Intake/Output Intake/Output: Intake & Output 06/17/22 06/18/22 06/19/22 06/20/22 23:59 23:59 23:59 23:59 Intake Total 1220 1250 1860 940 Output Total 1714 1062 1222 Balance -809 215 8857 -282 Meds/Results Medications: Active Medications Generic Name Dose Route Start Last Admin Trade Name Freq PRN Reason Stop Dose Admin Allopurinol 150 mg 06/17/22 09:00 06/20/22 08:07 Allopurinol 150 Mg Tablet PO 150 mg DAILY CONSTANZA Administration Cyclobenzaprine HCl 10 mg 06/16/22 13:02 Cyclobenzaprine Hcl 10 Mg Tablet PO DAILY PRN muscle spasm Dextrose 12.5 gm 06/16/22 12:58 Dextrose 50% 25 Gm/50 Ml Syringe IV PUSH PRN PRN Hypoglycemia Protocol Epoetin Odilon-epbx 10,000 units 06/18/22 09:00 06/18/22 09:31 Epoetin Odilon-Epbx 10,000 Units/Ml Vial SUB-Q 10,000 units TUTHSA CONSTANZA Administration Fluticasone Propionate 1 spray 06/16/22 17:00 06/20/22 08:07 Fluticasone Propionate 0.05% Na Spr 16 Gm Btl (*Bkc) NASAL 1 spray BID CONSTANZA Administration Furosemide 80 mg 06/16/22 17:00 06/20/22 08:07 Furosemide 80 Mg Tablet PO 80 mg BID CONSTANZA
[2022-06-20] MEDS: PROCHLORPERAZINE MALEATE 5 MG TABLET 10 MG PO (11:44)
[2022-06-20] MEDS: CYCLOBENZAPRINE HCL 10 MG TABLET PO (11:45)
[2022-06-20 13:52] VITALS: BP 96/39; PULSE 99; RESP 18; TEMP 36.2; O2SAT 97
--- NOTE | 2022-06-20 15:20 | PM.IMPN ---
Progress Note: A&P Assessment and Plan (1) Acute pyelonephritis: Code(s): N10 - Acute pyelonephritis Status: Acute (2) Peritoneal dialysis catheter in place: Code(s): Z99.2 - Dependence on renal dialysis Status: Acute (3) Hypothyroidism (acquired): Code(s): E03.9 - Hypothyroidism, unspecified Status: Acute (4) GERD (gastroesophageal reflux disease): Qualifiers: Esophagitis presence: without esophagitis Qualified Code(s): K21.9 - Gastro-esophageal reflux disease without esophagitis Code(s): K21.9 - Gastro-esophageal reflux disease without esophagitis Status: Acute (5) Chronic back pain: Qualifiers: Back pain location: low back pain Back pain laterality: unspecified Sciatica presence: unspecified whether sciatica present Qualified Code(s): M54.5 - Low back pain; G89.29 - Other chronic pain Code(s): M54.9 - Dorsalgia, unspecified; G89.29 - Other chronic pain Status: Acute (6) End-stage renal disease on peritoneal dialysis: Code(s): N18.6 - End stage renal disease; Z99.2 - Dependence on renal dialysis Status: Chronic (7) Polycystic kidney disease: Code(s): Q61.3 - Polycystic kidney, unspecified Status: Chronic (8) Asthma: Qualifiers: Asthma severity: mild Asthma persistence: intermittent Asthma complication type: uncomplicated Qualified Code(s): J45.20 - Mild intermittent asthma, uncomplicated Code(s): J45.909 - Unspecified asthma, uncomplicated Status: Acute (9) HTN (hypertension): Onset Date: ~1983 Qualifiers: Hypertension type: essential hypertension Qualified Code(s): I10 - Essential (primary) hypertension Code(s): I10 - Essential (primary) hypertension Status: Chronic (10) Diabetes mellitus: Onset Date: ~1995 Qualifiers: Diabetes mellitus type: type 2 Diabetes mellitus fdc insulin use: without manager terminal use Diabetes mellitus complication status: without complication Qualified Code(s): E11.9 - Type 2 diabetes mellitus without complications Code(s): E11.9 - Type 2 diabetes mellitus without complications Status: Chronic Plan # Right flank pain UA consistent with UTI. Leukocytosis [address] abdomen pelvis with new 4.6 cm mass in the right kidney with adjust sent fat stranding with numerous cyst and hemorrhagic cyst in the kidneys. To consider CT or MRI with and without contrast. Levofloxacin received in the ER. Will give another 250. Dose to 750 mg for pyelonephritis and followed by 500 mg every 48 hours. Urine culture not done as the sample was discarded. Another sample sent. urine culture no growth Ongoing nausea and vomiting. CT and MRI reviewed. This could also be related to her uremia. She is getting increasing dose of dialysis tonight per Nephrology to see if this will help alleviate her symptoms. Will try Compazine which has worked for her in the past Continue to monitor with supportive care. Increased pain in right flank along with ongoing nausea vomiting. Will recheck CT today. # right kidney mass does have underlying right polycystic kidney. Urology consulted. MRI abdomen done which was reviewed. # Nodular liver suspicious for cirrhosis # Anemia of chronic disease related to underlying end-stage renal disease # Polycystic kidney disease # End-stage renal disease on peritoneal dialysis nephrology consultation for continuation of peritoneal dialysis while inpatient # Chronic back pain # Hypothyroidism # GERD # Type 2 diabetes mellitus on oral hypoglycemic agent # Gout # Asthma # Hypertension # DVT prophylaxis:heparin sq Subjective Date/time seen: 06/20/22 15:20 Interval history: Patient continues to have several episodes of vomiting today. Continues to have nausea. She also reports right-sided flank started hurting more today. Denies any further blood in her urine. No fever chills.
[2022-06-20 16:48] LABS: Glucose Point of Care 136 mg/dl (65-105)
[2022-06-20] MEDS: PANTOPRAZOLE 40 MG TABLET PO (17:04)
[2022-06-20 17:10] VITALS: BP 100/45; PULSE 100; RESP 16; TEMP 36.4
[2022-06-20 20:00] VITALS: PULSE 100; RESP 16; O2SAT 97
[2022-06-20 20:25] LABS: Glucose Point of Care 242 mg/dl (65-105)
[2022-06-20 21:47] VITALS: BP 88/42; PULSE 98; RESP 14; TEMP 37.1; O2SAT 95
[2022-06-20] MEDS: MORPHINE SULFATE (*CRX) 2 MG/ML INJ IV PUSH (23:07)
[2022-06-21] VITALS (7 sets, daily range): BP systolic 89–104; BP diastolic 42–62; PULSE 89–108; RESP 14–20; TEMP 36.4–37.3; O2SAT 96–100
[2022-06-21] MEDS: MORPHINE SULFATE INJ (*CRX) 10 MG/ML AMP 2 MG IM (04:38)
[2022-06-21] MEDS: LEVOTHYROXINE SODIUM 12.5 MCG TABLET PO (06:50)
[2022-06-21 07:52] LABS: Glucose Point of Care 161 mg/dl (65-105)
[2022-06-21] MEDS: LIDOCAINE 5% PATCH 2 PATCH TOPICAL (09:05)
[2022-06-21] MEDS: FLUTICASONE PROPIONATE 0.05% NA SPR 16 GM BTL (*BKC) 1 SPRAY NASAL ×2 (09:06→17:14)
[2022-06-21] MEDS: polyethylene glycoL 3350 17 GM POWD.PACK PO (09:06)
[2022-06-21] MEDS: allopurinoL 150 MG TABLET PO (09:06)
[2022-06-21] MEDS: VITAMIN B CMPLX/VIT C/FOLIC AC 1 CAPSULE 1 CAP PO (09:06)
[2022-06-21] MEDS: HEPARIN SODIUM 5,000 UNITS/ML VIAL 5000 UNITS SUB-Q ×2 (09:06→21:19)
[2022-06-21] MEDS: CHOLECALCIFEROL 1,000 UNITS TABLET 2000 UNITS PO ×2 (09:07→17:13)
[2022-06-21] MEDS: PIOGLITAZONE HCL 30 MG TABLET PO (09:07)
[2022-06-21] MEDS: EPOETIN ALFA-EPBX 10,000 UNITS/ML VIAL 10000 UNITS SUB-Q (09:07)
[2022-06-21] MEDS: SEVELAMER CARBONATE 800 MG TABLET 5600 MG PO ×3 (09:07→17:13)
[2022-06-21] MEDS: PROCHLORPERAZINE MALEATE 5 MG TABLET 10 MG PO ×2 (10:22→17:13)
[2022-06-21 11:31] LABS: Glucose Point of Care 246 mg/dl (65-105)
--- NOTE | 2022-06-21 12:01 | P.PNNP_ITS ---
Progress Note: A&P Assessment and Plan (1) End stage renal disease: Code(s): N18.6 - End stage renal disease Status: Chronic Assessment and Plan: * continue nightly CCPD * her dialysis adequacy is good at home * however, she has significant nausea and vomiting currently * she had more dialysis in the last few nights and initially felt better but now fees the same -- will continue the higher dose of dialysis for now (2) Acute pyelonephritis: Code(s): N10 - Acute pyelonephritis Status: Acute Assessment and Plan: * as suggested by UA flank pain * on Levaquin - this penetrates these cyst ngo * urine culture negative (3) Nausea & vomiting: Code(s): R11.2 - Nausea with vomiting, unspecified Status: Acute Assessment and Plan: * quite persistent in spite of antiemtic therapy * continue current therapy (4) Polycystic kidney disease: Code(s): Q61.3 - Polycystic kidney, unspecified Status: Chronic Assessment and Plan: * known history * Urology recommendations noted (5) HTN (hypertension): Onset Date: ~1983 Qualifiers: Hypertension type: essential hypertension Qualified Code(s): I10 - Essential (primary) hypertension Code(s): I10 - Essential (primary) hypertension Status: Chronic Assessment and Plan: * blood pressure is under good control * follow trend of hemodynamics (6) Anemia: Code(s): D64.9 - Anemia, unspecified Status: Chronic Assessment and Plan: * due to ESRD and acute illness * Epogen 3x/week * follow trend of H/H (7) Diabetes mellitus: Onset Date: ~1995 Qualifiers: Diabetes mellitus type: type 2 Diabetes mellitus senior living insulin use: without senior living use Diabetes mellitus complication status: without complication Qualified Code(s): E11.9 - Type 2 diabetes mellitus without complications Code(s): E11.9 - Type 2 diabetes mellitus without complications Status: Chronic Assessment and Plan: * on Accu-Cheks and sliding-scale insulin * continue glycemic control Subjective Date/time seen: 06/21/22 12:01 Peritoneal dialysis treatments overnight continue to go well but she is still having persistent nausea/vomiting with meals despite antiemetic therapy; no other acute issues or events to report; no apparent distress other that fatigue. Exam Narrative: General: WD/WN female in NAD Heart: normal S1 and S2; no rub Lungs: clear anteriorly Abdomen: soft, nontender, nondistended, positive bowel sounds Extremities: no edema Skin: warm and intact Objective Data Vital Signs Vital Signs: Vital Signs Temp Pulse Resp BP Pulse Ox O2 Del Method 06/21/22 08:11 102/58 L 06/21/22 05:41 99.1 F 92 14 89/42 L 97 06/21/22 00:02 Room Air 06/20/22 21:47 98.7 F 98 14 88/42 L 95 06/20/22 20:00 100 16 97 Room Air 06/20/22 17:10 97.6 F 100 16 100/45 L Room Air 06/20/22 13:52 97.2 F L 99 18 96/39 L 97 Intake/Output Intake/Output: Intake & Output 06/18/22 06/19/22 06/20/22 06/21/22 23:59 23:59 23:59 23:59 Intake Total 1250 1860 1180 860 Output Total 1062 1222 Balance 188 1860 -42 860
--- NOTE | 2022-06-21 12:01 | PM.PNNEP ---
Progress Note: A&P Assessment and Plan (1) End stage renal disease: Code(s): N18.6 - End stage renal disease Status: Chronic Assessment and Plan: continue nightly CCPD her dialysis adequacy is good at home however, she has significant nausea and vomiting currently she had more dialysis in the last few nights and initially felt better but now fees the same -- will continue the higher dose of dialysis for now (2) Acute pyelonephritis: Code(s): N10 - Acute pyelonephritis Status: Acute Assessment and Plan: as suggested by UA flank pain on Levaquin - this penetrates these cyst ngo urine culture negative (3) Nausea & vomiting: Code(s): R11.2 - Nausea with vomiting, unspecified Status: Acute Assessment and Plan: quite persistent in spite of antiemtic therapy continue current therapy (4) Polycystic kidney disease: Code(s): Q61.3 - Polycystic kidney, unspecified Status: Chronic Assessment and Plan: known history Urology recommendations noted (5) HTN (hypertension): Onset Date: ~1983 Qualifiers: Hypertension type: essential hypertension Qualified Code(s): I10 - Essential (primary) hypertension Code(s): I10 - Essential (primary) hypertension Status: Chronic Assessment and Plan: blood pressure is under good control follow trend of hemodynamics (6) Anemia: Code(s): D64.9 - Anemia, unspecified Status: Chronic Assessment and Plan: due to ESRD and acute illness Epogen 3x/week follow trend of H/H (7) Diabetes mellitus: Onset Date: ~1995 Qualifiers: Diabetes mellitus type: type 2 Diabetes mellitus 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 Exam Narrative: General: WD/WN female in NAD Heart: normal S1 and S2; no rub Lungs: clear anteriorly Abdomen: soft, nontender, nondistended, positive bowel sounds Extremities: no edema Skin: warm and intact Objective Data Vital Signs Vital Signs: Vital Signs Temp Pulse Resp BP Pulse Ox O2 Del Method 06/21/22 08:11 102/58 L 06/21/22 05:41 99.1 F 92 14 89/42 L 97 06/21/22 00:02 Room Air 06/20/22 21:47 98.7 F 98 14 88/42 L 95 06/20/22 20:00 100 16 97 Room Air 06/20/22 17:10 97.6 F 100 16 100/45 L Room Air 06/20/22 13:52 97.2 F L 99 18 96/39 L 97 Intake/Output Intake/Output: Intake & Output 06/18/22 06/19/22 06/20/22 06/21/22 23:59 23:59 23:59 23:59 Intake Total 1250 1860 1180 860 Output Total 1062 1222 Balance 188 1860 -42 860 Meds/Results Medications: Active Medications Generic Name Dose Route Start Last Admin Trade Name Shree PRN Reason Stop Dose Admin Allopurinol 150 mg 06/17/22 09:00 06/21/22 09:06 Allopurinol 150 Mg Tablet PO 150 mg DAILY CONSTANZA Administration Cyclobenzaprine HCl 10 mg 06/16/22 13:02 06/20/22 11:45 Cyclobenzaprine Hcl 10 Mg Tablet PO 10 mg DAILY PRN Administration muscle spasm Dextrose 12.5 gm 06/16/22 12:58 Dextrose 50% 25 Gm/50 Ml Syringe IV PUSH PRN PRN Hypoglycemia Protocol Epoetin Odilon-epbx 10,000 units 06/18/22 09:00 06/21/22 09:07 Epoetin Odilon-Epbx 10,000 Units/Ml Vial SUB-Q 10,000 units TUTHSA CONSTANZA Administration Fluticasone Prop
[2022-06-21] MEDS: INSULIN ASPART (*BKC) 100 UNITS/ML SUB-Q ×2 (12:09→17:13)
--- NOTE | 2022-06-21 16:27 | PM.IMPN ---
Progress Note: A&P Assessment and Plan (1) Acute pyelonephritis: Code(s): N10 - Acute pyelonephritis Status: Acute (2) Peritoneal dialysis catheter in place: Code(s): Z99.2 - Dependence on renal dialysis Status: Acute (3) Hypothyroidism (acquired): Code(s): E03.9 - Hypothyroidism, unspecified Status: Acute (4) GERD (gastroesophageal reflux disease): Qualifiers: Esophagitis presence: without esophagitis Qualified Code(s): K21.9 - Gastro-esophageal reflux disease without esophagitis Code(s): K21.9 - Gastro-esophageal reflux disease without esophagitis Status: Acute (5) Chronic back pain: Qualifiers: Back pain location: low back pain Back pain laterality: unspecified Sciatica presence: unspecified whether sciatica present Qualified Code(s): M54.5 - Low back pain; G89.29 - Other chronic pain Code(s): M54.9 - Dorsalgia, unspecified; G89.29 - Other chronic pain Status: Acute (6) End-stage renal disease on peritoneal dialysis: Code(s): N18.6 - End stage renal disease; Z99.2 - Dependence on renal dialysis Status: Chronic (7) Polycystic kidney disease: Code(s): Q61.3 - Polycystic kidney, unspecified Status: Chronic (8) Asthma: Qualifiers: Asthma severity: mild Asthma persistence: intermittent Asthma complication type: uncomplicated Qualified Code(s): J45.20 - Mild intermittent asthma, uncomplicated Code(s): J45.909 - Unspecified asthma, uncomplicated Status: Acute (9) HTN (hypertension): Onset Date: ~1983 Qualifiers: Hypertension type: essential hypertension Qualified Code(s): I10 - Essential (primary) hypertension Code(s): I10 - Essential (primary) hypertension Status: Chronic (10) Diabetes mellitus: Onset Date: ~1995 Qualifiers: Diabetes mellitus type: type 2 Diabetes mellitus senior living insulin use: without meterman use Diabetes mellitus complication status: without complication Qualified Code(s): E11.9 - Type 2 diabetes mellitus without complications Code(s): E11.9 - Type 2 diabetes mellitus without complications Status: Chronic Plan # Right flank pain UA consistent with UTI. Leukocytosis [address] abdomen pelvis with new 4.6 cm mass in the right kidney with adjust sent fat stranding with numerous cyst and hemorrhagic cyst in the kidneys. To consider CT or MRI with and without contrast. Levofloxacin received in the ER. Will give another 250. Dose to 750 mg for pyelonephritis and followed by 500 mg every 48 hours. Urine culture not done as the sample was discarded. Another sample sent. urine culture no growth Ongoing nausea and vomiting. CT and MRI reviewed. This could also be related to her uremia. She is getting increasing dose of dialysis tonight per Nephrology to see if this will help alleviate her symptoms. Will try Compazine which has worked for her in the past Continue to monitor with supportive care. Increased pain in right flank along with ongoing nausea vomiting. recheck ct with no acute findings. unclear reason for the pain and ongoing nasuea, vomiting. will do gastric emptying study to rule out gastroparesis. consult GI for further evaluation and input. trial of reglan once GES is done. # right kidney mass does have underlying right polycystic kidney. Urology consulted. MRI abdomen done which was reviewed. # Nodular liver suspicious for cirrhosis # Anemia of chronic disease related to underlying end-stage renal disease # Polycystic kidney disease # End-stage renal disease on peritoneal dialysis nephrology consultation for continuation of peritoneal dialysis while inpatient # Chronic back pain # Hypothyroidism # GERD # Type 2 diabetes mellitus on oral hypoglycemic agent a1c 7.1. # Gout # Asthma # Hypertension # DVT prophylaxis:heparin sq Subjective Date/time seen: 06/21/22 16
[2022-06-21 16:31] LABS: Glucose Point of Care 211 mg/dl (65-105)
[2022-06-21] MEDS: PANTOPRAZOLE 40 MG TABLET PO (17:13)
[2022-06-21 21:08] LABS: Glucose Point of Care 184 mg/dl (65-105)
[2022-06-22] VITALS (7 sets, daily range): BP systolic 94–103; BP diastolic 48–72; PULSE 90–98; RESP 16–18; TEMP 36.1–36.7; O2SAT 90–100
[2022-06-22] MEDS: LEVOTHYROXINE SODIUM 12.5 MCG TABLET PO (05:40)
[2022-06-22] MEDS: PROCHLORPERAZINE MALEATE 5 MG TABLET 10 MG PO ×2 (05:42→17:04)
[2022-06-22 06:05] LABS: Basophils Absolute Auto 0.1 K/mm3 (0.0-0.1); Eosinophils Absolute Auto 0.3 K/mm3 (0-0.3); Eosinophils Percent Auto 2.6 % (0-4.4); Hematocrit 30.5 % (37.0-47.0); Immature Granulocyte Absolute 0.72 K/mm3 (0.00-0.031); Immature Granulocyte Percent A 5.8 % (0-0.5); Lymphocytes Absolute Auto 1.27 K/mm3 (0.9-3.2); Lymphocytes Percent Auto 10.2 % (18.3-44.2); Mean Corpuscular HGB Conc 29.5 g/dl (32-36); Mean Corpuscular Hemoglobin 31.1 pg (26-34); Mean Corpuscular Volume 105.5 fl (80-100); Mean Platelet Volume 9.5 fl (7.4-10.4); Monocytes Absolute Auto 1.6 K/mm3 (0.1-0.6); Monocytes Percent Auto 12.6 % (2.6-8.5); Neutrophils Absolute Auto 8.5 K/mm3 (1.3-6.7); Neutrophils Percent Auto 67.8 % (45.5-73.1); Nucleated Red Blood Cells Perc 0.2 % (0.0-0.2); Platelet Count Result 246 k/mm3 (150-375); Red Blood Count 2.89 M/mm3 (4.2-5.4); Red Cell Distribution Width 15.1 % (11.5-14.5); White Blood Count 12.5 K/mm3 (4.5-10.0)
[2022-06-22 06:19] LABS: Alanine Aminotransferase 14 U/L (6-35); Albumin Level 3.2 g/dL (3.5-5.1); Alkaline Phosphatase 118 U/L (38-126); Anion Gap 13 mmol/L (8-16); Aspartate Amino Transferase 19 U/L (14-36); Bilirubin,Total 0.4 mg/dL (0.2-1.3); Blood Urea Nitrogen 44 mg/dL (7-17); Calcium 8.9 mg/dL (8.4-10.2); Carbon Dioxide 25 mmol/L (22-30); Chloride 88 mmol/L (98-107); Glucose 233 mg/dL (65-110); Magnesium 2.7 mg/dL (1.6-2.3); Potassium 3.6 mmol/L (3.4-5.0); Sodium 126 mmol/L (137-145)
[2022-06-22 06:23] LABS: Estimated CRCL calculation 5 ml/min; Estimated Glomerular Filt Rate 4
--- NOTE | 2022-06-22 08:08 | WPDGICN ---
Assessment and Plan Assessment and plan (1) End-stage renal disease on peritoneal dialysis: Code(s): N18.6 - End stage renal disease; Z99.2 - Dependence on renal dialysis Status: Chronic Assessment and Plan: Patient with end-stage renal disease followed by the renal service currently on peritoneal dialysis. She is awaiting transplant. She was admitted with extremely elevated creatinine which has gradually begun to improve during this hospital stay. It remains quite elevated in likely contributes to her nausea. (2) UTI (urinary tract infection): Code(s): N39.0 - Urinary tract infection, site not specified Status: Acute Assessment and Plan: Patient with active urinary traction could contribute to her nausea as well as the potential for medications contributing. (3) Acute pyelonephritis: Code(s): N10 - Acute pyelonephritis Status: Acute Assessment and Plan: Suspect pyelonephritis may contribute to her pain. Alternatively this could be related to cystic disease and bleeding into 1 of the cysts. (4) Polycystic kidney disease: Code(s): Q61.3 - Polycystic kidney, unspecified Status: Acute Assessment and Plan: Imaging studies confirmed polycystic kidney disease. A tumor in the right kidney has been excluded. Polycystic kidney disease often include cysts in the liver. Imaging studies reveal nodular liver. Which could be related to polycystic kidney disease. Underlying cirrhosis could not be excluded by the imaging studies however. Clinically, cirrhosis does not appear to be an issue however. (5) Nausea: Code(s): R11.0 - Nausea Status: Acute Assessment and Plan: Ongoing nausea appears to be related to patient's azotemia. Her creatinine which was 17 or so on presentation remains elevated approximately 10. Additionally nausea likely is related ongoing urinary tract infection. She has right flank pain which likely is related to pyelonephritis or bleeding into her kidney cysts. These are the most likely etiologies for her nausea. I understand gastric emptying scan is to be performed which may confirm delayed gastric emptying at this point. It may be difficult to attribute this to diabetes at this time but this is an additional consideration for diabetic gastroparesis. (6) Right flank pain: Code(s): R10.9 - Unspecified abdominal pain Status: Acute Assessment and Plan: Right flank pain may be related to bleeding into a cyst on the kidney however cannot exclude pyelonephritis as she has an active urinary tract infection. I understand patient is on antibiotics. Pain itself is unlikely to be from minute abdominal source. GI Consult Note Consult date/time: 06/22/22 08:08 Reason for consult: Nausea and right flank pain. HPI: Shantelle Salinas is a 66 year old female I am asked to see because of nausea and right flank pain at the request of the hospitalist service. Patient with an extensive history of end-stage renal disease requiring peritoneal dialysis. She has an underlying history of diabetes and hypertension. She has autosomal dominant polycystic kidney disease. Admitted to our hospital on June 16 with nausea vomiting right flank pain. At the time of presentation was identified as having a urinary tract infection. Imaging studies have shown that she has significant cysts in the right kidney and has apparently had bleeding into one of the cysts. During hospital stay patient's initial creatinine around 16-17 is returned to approximately 10. Review of Systems Review of Systems: Review of systems noncontributory. [facility]LY [facility] Past Medical History Medical History (Updated 06/22/22 @ 08:13 by Jose Chase MD) Anemia of chronic disease Asthma Chronic back pain Diabetes mellitus (~1995) End-stage renal disease on peritoneal dialysis On transplant list Gastritis GERD (gastroesophageal reflux disease)
[2022-06-22 08:10] LABS: Glucose Point of Care 200 mg/dl (65-105)
--- NOTE | 2022-06-22 08:13 | PC.NURSE ---
Joey ARREDONDO from dialysis here to disconnect pt from PD, pt will be going to [place] for scheduled test at this time
--- NOTE | 2022-06-22 10:40 | PCNFU ---
Nutrition Follow-Up Complete: Severe malnutrition related to inadqeuate protein energy intake as evidenced by pt report, reported weight loss, reduced intake. Goal:PO intake 75% of meals and supplements - Goal not being met Pt current nutrition is NPO for GI. Previous was renal diet. Intakes poor 15-30%. Drinking 1 Glucerna per day. Nutrition recommendation: Advance diet to renal when able. Continue same care plan, supplements. Agree with diet orders Last recorded weight is 72.9 kg. Bowel Motility: +2 06/20/22 Labs Reviewed: Hgb 9.0, Hct 30.5, Na 126, GFR 4, BUN 44, Cre 10.8, Glu 161-286 Meds Noted: Heparin Skin: WNL Additional Notes: Poor appetite and nausea likely related to renal labs. Reports 23 lb weight loss. Appetite is poor. She drinks Glucerna at home. Continue same care plan when diet is advanced Monitor intake, wt, labs. Follow up in 7 days.
[2022-06-22 11:19] LABS: Glucose Point of Care 181 mg/dl (65-105)
[2022-06-22] MEDS: SEVELAMER CARBONATE 800 MG TABLET 5600 MG PO ×2 (13:05→17:04)
[2022-06-22] MEDS: CHOLECALCIFEROL 1,000 UNITS TABLET 2000 UNITS PO ×2 (13:06→17:03)
[2022-06-22] MEDS: PIOGLITAZONE HCL 30 MG TABLET PO (13:06)
[2022-06-22] MEDS: VITAMIN B CMPLX/VIT C/FOLIC AC 1 CAPSULE 1 CAP PO (13:06)
[2022-06-22] MEDS: FLUTICASONE PROPIONATE 0.05% NA SPR 16 GM BTL (*BKC) 1 SPRAY NASAL ×2 (13:06→17:03)
[2022-06-22] MEDS: polyethylene glycoL 3350 17 GM POWD.PACK PO (13:07)
[2022-06-22] MEDS: allopurinoL 150 MG TABLET PO (13:07)
[2022-06-22] MEDS: HEPARIN SODIUM 5,000 UNITS/ML VIAL 5000 UNITS SUB-Q ×2 (13:07→20:01)
[2022-06-22] MEDS: levoFLOXacin 500 MG/D5W 100 ML 500 MG/100 ML BAG 100 MG IVPB (13:11)
--- NOTE | 2022-06-22 13:48 | P.PNNP_ITS ---
Progress Note: A&P Assessment and Plan (1) End stage renal disease: Code(s): N18.6 - End stage renal disease Status: Chronic Assessment and Plan: * continue nightly CCPD * her dialysis adequacy is at goal from outpatient records * follow electrolytes, volume status, and clearance (2) Acute pyelonephritis: Code(s): N10 - Acute pyelonephritis Status: Acute Assessment and Plan: * as suggested by UA flank pain * on Levaquin - this penetrates these cyst gno * urine culture negative (3) Nausea & vomiting: Code(s): R11.2 - Nausea with vomiting, unspecified Status: Acute Assessment and Plan: * quite persistent in spite of antiemtic therapy * continue current therapy * related to antibiotic?? (4) Polycystic kidney disease: Code(s): Q61.3 - Polycystic kidney, unspecified Status: Chronic Assessment and Plan: * known history * Urology recommendations noted (5) HTN (hypertension): Onset Date: ~1983 Qualifiers: Hypertension type: essential hypertension Qualified Code(s): I10 - Essential (primary) hypertension Code(s): I10 - Essential (primary) hypertension Status: Chronic Assessment and Plan: * blood pressure is under good control * follow trend of hemodynamics (6) Anemia: Code(s): D64.9 - Anemia, unspecified Status: Chronic Assessment and Plan: * due to ESRD and acute illness * Epogen 3x/week * follow trend of H/H (7) Diabetes mellitus: Onset Date: ~1995 Qualifiers: Diabetes mellitus type: type 2 Diabetes mellitus 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 Subjective Date/time seen: 06/22/22 13:48 Tolerated peritoneal dialysis treatment last night without issue or problems; sitting up at the side of the bed at the time of visit; eat breakfast and so for no nausea or vomiting; no apparent distress noted at the time of my visit. Exam Narrative: General: WD/WN female in NAD Heart: normal S1 and S2; no rub Lungs: clear anteriorly Abdomen: soft, nontender, nondistended, positive bowel sounds Extremities: no edema Skin: no rash Objective Data Vital Signs Vital Signs: Vital Signs Temp Pulse Resp BP Pulse Ox O2 Del Method 06/22/22 13:00 98.0 F 91 16 98/72 L 90 06/22/22 07:58 97.0 F L 90 16 95/52 L 06/22/22 07:40 Room Air 06/22/22 06:00 97.7 F 94 18 94/56 L 100 06/21/22 22:00 99.2 F 98 18 104/47 L 100 06/21/22 20:00 98 Room Air 06/21/22 19:30 98.8 F 105 H 18 102/62 98 Room Air Intake/Output Intake/Output: Intake & Output 06/19/22 06/20/22 06/21/22 06/22/22 23:59 23:59 23:59 23:59 Intake Total 1860 1180 1220 750 Output Total 1222 996 637 Balance 1860 -42 224 113 Meds/Results Medications:
--- NOTE | 2022-06-22 13:48 | PM.PNNEP ---
Progress Note: A&P Assessment and Plan (1) End stage renal disease: Code(s): N18.6 - End stage renal disease Status: Chronic Assessment and Plan: continue nightly CCPD her dialysis adequacy is at goal from outpatient records follow electrolytes, volume status, and clearance (2) Acute pyelonephritis: Code(s): N10 - Acute pyelonephritis Status: Acute Assessment and Plan: as suggested by UA flank pain on Levaquin - this penetrates these cyst ngo urine culture negative (3) Nausea & vomiting: Code(s): R11.2 - Nausea with vomiting, unspecified Status: Acute Assessment and Plan: quite persistent in spite of antiemtic therapy continue current therapy related to antibiotic?? (4) Polycystic kidney disease: Code(s): Q61.3 - Polycystic kidney, unspecified Status: Chronic Assessment and Plan: known history Urology recommendations noted (5) HTN (hypertension): Onset Date: ~1983 Qualifiers: Hypertension type: essential hypertension Qualified Code(s): I10 - Essential (primary) hypertension Code(s): I10 - Essential (primary) hypertension Status: Chronic Assessment and Plan: blood pressure is under good control follow trend of hemodynamics (6) Anemia: Code(s): D64.9 - Anemia, unspecified Status: Chronic Assessment and Plan: due to ESRD and acute illness Epogen 3x/week follow trend of H/H (7) Diabetes mellitus: Onset Date: ~1995 Qualifiers: Diabetes mellitus type: type 2 Diabetes mellitus halfway insulin use: without long chain beamer use Diabetes mellitus complication status: without complication Qualified Code(s): E11.9 - Type 2 diabetes mellitus without complications Code(s): E11.9 - Type 2 diabetes mellitus without complications Status: Chronic Assessment and Plan: on Accu-Cheks and sliding-scale insulin continue glycemic control Will continue to follow. Subjective Date/time seen: 06/22/22 13:48 Tolerated peritoneal dialysis treatment last night without issue or problems; sitting up at the side of the bed at the time of visit; eat breakfast and so for no nausea or vomiting; no apparent distress noted at the time of my visit. Exam Narrative: General: WD/WN female in NAD Heart: normal S1 and S2; no rub Lungs: clear anteriorly Abdomen: soft, nontender, nondistended, positive bowel sounds Extremities: no edema Skin: no rash Objective Data Vital Signs Vital Signs: Vital Signs Temp Pulse Resp BP Pulse Ox O2 Del Method 06/22/22 13:00 98.0 F 91 16 98/72 L 90 06/22/22 07:58 97.0 F L 90 16 95/52 L 06/22/22 07:40 Room Air 06/22/22 06:00 97.7 F 94 18 94/56 L 100 06/21/22 22:00 99.2 F 98 18 104/47 L 100 06/21/22 20:00 98 Room Air 06/21/22 19:30 98.8 F 105 H 18 102/62 98 Room Air Intake/Output Intake/Output: Intake & Output 06/19/22 06/20/22 06/21/22 06/22/22 23:59 23:59 23:59 23:59 Intake Total 1860 1180 1220 750 Output Total 1222 996 637 Balance 1860 -42 224 113 Meds/Results Medications: Active Medications Generic Name Dose Route Start Last Admin Trade Name Freq PRN Reason Stop Dose Admin Allopurinol 150 mg 06/17/22 09:00 06/22/22 13:07 Allopurinol 150 Mg Tablet PO 150 mg DAILY CONSTANZA Administration Cyclobenzaprine HCl 10 mg 06/16/22 13:02 06/20/22 11:45 Cyclobenzaprine Hcl 10 Mg Tablet PO 10 mg DAILY PRN Administration muscle spasm Dextrose 12.5 gm 06/16/22 12:58 Dextrose 50% 25 Gm/50 Ml Syringe IV PUSH PRN PRN Hypoglycemia Protocol Epoetin Odilon-epbx 10,000 units 06/18/22 09:00 06/21/22 09:07 Epoetin Odilon-Epbx 10,000 Units/Ml Vial SUB-Q 10,000 units [facility] Administration Fluticasone Propionate 1 spray 06/16/22 17:00 06/22/22 13:06 Fluticasone Propionate 0.05% N
--- NOTE | 2022-06-22 15:25 | PM.IMPN ---
Progress Note: A&P Assessment and Plan (1) Acute pyelonephritis: Code(s): N10 - Acute pyelonephritis Status: Acute (2) Anemia: Code(s): D64.9 - Anemia, unspecified Status: Chronic (3) UTI (urinary tract infection): Code(s): N39.0 - Urinary tract infection, site not specified Status: Acute (4) Right renal mass: Code(s): N28.89 - Other specified disorders of kidney and ureter Status: Acute (5) End-stage renal disease on peritoneal dialysis: Code(s): N18.6 - End stage renal disease; Z99.2 - Dependence on renal dialysis Status: Chronic (6) Diabetes mellitus: Onset Date: ~1995 Qualifiers: Diabetes mellitus type: type 2 Diabetes mellitus assisted insulin use: without long term acute care registered nurse use Diabetes mellitus complication status: without complication Qualified Code(s): E11.9 - Type 2 diabetes mellitus without complications Code(s): E11.9 - Type 2 diabetes mellitus without complications Status: Chronic Plan Urine cultures no growth Continue IV hydration. Monitor CBC CMP monitor for sepsis. Monitor vital signs Stopped antibiotics Monitor for obstructive uropathy and pyelonephritis CRF on dialysis And gentle hydration. Avoid nephrotoxic drugs. Monitor antihypertensive drugs Avoid NSAIDs. 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 HBA1c ( goal <7.0%) , Renal functions, Liver panel every 3 months Monitor vitamin B12 levels Optimize YENY-inhibitor and statin Routine glucose monitoring. Watch for Hypoglycemia. BMI goal < 25 Sliding scale Actos levothyroxine continue Patient nausea and vomiting possibly secondary to diabetic gastroparesis Anemia of chronic disease. Right kidney mass possibly right cystic kidney urology on consult. Liver nodule suspicious for cirrhosis GI consulted Time Spent With Patient Time: DVT prophylaxis. GI prophylaxis. All records reviewed Discussed plan of care with the nursing staff and with the patient in detail. Answered all questions and concerns from the patient. All labs have been reviewed. Code status updated dictation may have been done utilizing a voice recognition system. Attempts have been made to correct errors. However, there may be uncorrected grammatical, spelling, and recognition errors present. Subjective Date/time seen: 06/22/22 15:25 Exam Narrative: GENERAL: Well appearing, well-nourished, non-toxic, in no acute distress. HEAD: Normocephalic, atraumatic. NECK: Supple. No adenopathy, no masses. RESPIRATORY: Airway patent, respirations nonlabored. Clear to auscultation bilaterally, no rales, rhonchi, wheezing. CARDIOVASCULAR: Regular rate and rhythm without murmurs, rubs, or gallops. Peripheral pulses 2+ and equal bilaterally. ABDOMINAL: Soft, nontender, nondistended, no hepatosplenomegaly. Normoactive BS. MUSCULOSKELETAL: no Epigastric and no hypochondrial tenderness SKIN: Warm, dry, normal color. No rashes. NEURO: A&O X3. Moves all extremities PSYCHIATRIC: Appropriate mood and affect. Normal interaction. Objective Data Vital Signs Vital Signs: Vital Signs - 24 hr 06/21/22 19:30 06/21/22 20:00 06/21/22 22:00 Temperature 37.1 C 37.3 C Pulse Rate 105 H 98 Respiratory Rate 18 18 Blood Pressure 102/62 104/47 L Pulse Oximetry 98 98 100 Oxygen Delivery Room Air Room Air 06/22/22 06:00 06/22/22 07:40 06/22/22 07:58 Temperature 36.5 C 36.1 C L Pulse Rate 94 90 Respiratory Rate 18 16 Blood Pressure 94/56 L 95/52 L Pulse Oximetry 100 Oxygen Delivery Room Air 06/22/22 14:00 Temperature 36.7 C Pulse Rate 91 Respiratory Rate 16 Blood Pressure 98/72 L Pulse Oximetry 90 Oxygen Delivery Intake/Output Intake/Output: Intake & Output 06/19/22 06/20/22 06/21/22 06/22/22 23:59 23:59 23:59 23:59 Intake Total 1860 1180 1220 750 Output Total 1222 996 637 Balance 1860 -42 224 113 Meds/Results Medications:
[2022-06-22 16:22] LABS: Glucose Point of Care 275 mg/dl (65-105)
[2022-06-22] MEDS: INSULIN ASPART (*BKC) 100 UNITS/ML SUB-Q (16:56)
[2022-06-22] MEDS: PANTOPRAZOLE 40 MG TABLET PO (17:03)
[2022-06-22 21:33] LABS: Glucose Point of Care 222 mg/dl (65-105)
[2022-06-23] VITALS (7 sets, daily range): BP systolic 72–106; BP diastolic 44–52; PULSE 87–96; RESP 12–18; TEMP 36.1–36.8; O2SAT 95–99
[2022-06-23] MEDS: LEVOTHYROXINE SODIUM 12.5 MCG TABLET PO (05:26)
[2022-06-23 07:37] LABS: Glucose Point of Care 179 mg/dl (65-105)
[2022-06-23] MEDS: allopurinoL 150 MG TABLET PO (09:36)
[2022-06-23] MEDS: CHOLECALCIFEROL 1,000 UNITS TABLET 2000 UNITS PO ×2 (09:36→16:34)
[2022-06-23] MEDS: VITAMIN B CMPLX/VIT C/FOLIC AC 1 CAPSULE 1 CAP PO (09:37)
[2022-06-23] MEDS: FLUTICASONE PROPIONATE 0.05% NA SPR 16 GM BTL (*BKC) 1 SPRAY NASAL ×2 (09:37→16:33)
[2022-06-23] MEDS: polyethylene glycoL 3350 17 GM POWD.PACK PO (09:38)
[2022-06-23] MEDS: PIOGLITAZONE HCL 30 MG TABLET PO (09:38)
[2022-06-23] MEDS: LIDOCAINE 5% PATCH 2 PATCH TOPICAL (09:40)
[2022-06-23] MEDS: SEVELAMER CARBONATE 800 MG TABLET 5600 MG PO ×3 (09:40→16:34)
[2022-06-23] MEDS: HEPARIN SODIUM 5,000 UNITS/ML VIAL 5000 UNITS SUB-Q ×2 (09:45→20:05)
[2022-06-23] MEDS: EPOETIN ALFA-EPBX 10,000 UNITS/ML VIAL 10000 UNITS SUB-Q (09:53)
[2022-06-23 11:33] LABS: Glucose Point of Care 199 mg/dl (65-105)
[2022-06-23] MEDS: PROCHLORPERAZINE MALEATE 5 MG TABLET 10 MG PO ×2 (12:01→17:00)
--- NOTE | 2022-06-23 13:08 | PM.IMPN ---
Progress Note: A&P Assessment and Plan (1) Acute pyelonephritis: Code(s): N10 - Acute pyelonephritis Status: Acute (2) Anemia: Code(s): D64.9 - Anemia, unspecified Status: Chronic (3) UTI (urinary tract infection): Code(s): N39.0 - Urinary tract infection, site not specified Status: Acute (4) Right renal mass: Code(s): N28.89 - Other specified disorders of kidney and ureter Status: Acute (5) End-stage renal disease on peritoneal dialysis: Code(s): N18.6 - End stage renal disease; Z99.2 - Dependence on renal dialysis Status: Chronic (6) Diabetes mellitus: Onset Date: ~1995 Qualifiers: Diabetes mellitus type: type 2 Diabetes mellitus shelter insulin use: without meterman use Diabetes mellitus complication status: without complication Qualified Code(s): E11.9 - Type 2 diabetes mellitus without complications Code(s): E11.9 - Type 2 diabetes mellitus without complications Status: Chronic Plan Urine cultures no growth Continue IV hydration. Monitor CBC CMP monitor for sepsis. Monitor vital signs Stopped antibiotics Monitor for obstructive uropathy and pyelonephritis CRF on dialysis And gentle hydration. Avoid nephrotoxic drugs. Monitor antihypertensive drugs Avoid NSAIDs. 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 HBA1c ( goal <7.0%) , Renal functions, Liver panel every 3 months Monitor vitamin B12 levels Optimize YENY-inhibitor and statin Routine glucose monitoring. Watch for Hypoglycemia. BMI goal < 25 Sliding scale Actos levothyroxine continue Patient nausea and vomiting possibly secondary to diabetic gastroparesis Anemia of chronic disease. Right kidney mass possibly right cystic kidney urology on consult. Liver nodule suspicious for cirrhosis GI consulted Time Spent With Patient Time: DVT prophylaxis. GI prophylaxis. All records reviewed Discussed plan of care with the nursing staff and with the patient in detail. Answered all questions and concerns from the patient. All labs have been reviewed. Code status updated dictation may have been done utilizing a voice recognition system. Attempts have been made to correct errors. However, there may be uncorrected grammatical, spelling, and recognition errors present. Subjective Date/time seen: 06/23/22 13:08 Interval history: Still has nausea and flank pain Exam Narrative: GENERAL: Well appearing, well-nourished, non-toxic, in no acute distress. HEAD: Normocephalic, atraumatic. NECK: Supple. No adenopathy, no masses. RESPIRATORY: Airway patent, respirations nonlabored. Clear to auscultation bilaterally, no rales, rhonchi, wheezing. CARDIOVASCULAR: Regular rate and rhythm without murmurs, rubs, or gallops. Peripheral pulses 2+ and equal bilaterally. ABDOMINAL: Soft, nontender, nondistended, no hepatosplenomegaly. Normoactive BS. MUSCULOSKELETAL: no Epigastric and no hypochondrial tenderness SKIN: Warm, dry, normal color. No rashes. NEURO: A&O X3. Moves all extremities PSYCHIATRIC: Appropriate mood and affect. Normal interaction. Objective Data Vital Signs Vital Signs: Vital Signs - 24 hr 06/22/22 14:00 06/22/22 16:00 06/22/22 20:00 Temperature 36.7 C 36.7 C Pulse Rate 91 95 Respiratory Rate 16 16 Blood Pressure 98/72 L 96/54 L Pulse Oximetry 90 98 98 Oxygen Delivery Room Air Room Air 06/22/22 21:22 06/22/22 22:00 06/23/22 05:22 Temperature 36.7 C 36.7 C Pulse Rate 96 98 Respiratory Rate 18 18 Blood Pressure 103/48 L 102/52 L Pulse Oximetry 96 97 Oxygen Delivery 06/23/22 06:00 06/23/22 07:39 06/23/22 09:59 Temperature 36.8 C 36.8 C Pulse Rate 96 96 Respiratory Rate 18 18 Blood Pressure 102/52 L Pulse Oximetry 95 Oxygen Delivery Room Air Intake/Output Intake/Output: Intake & Output 06/20/22 06/21/22 06/22/22 06/23/22 23:59 23:59 23:59 23:59 In
--- NOTE | 2022-06-23 13:15 | P.PNNP_ITS ---
Progress Note: A&P Assessment and Plan (1) End stage renal disease: Code(s): N18.6 - End stage renal disease Status: Chronic Assessment and Plan: * continue nightly CCPD * her dialysis adequacy is at goal from outpatient records * follow electrolytes, volume status, and clearance (2) Acute pyelonephritis: Code(s): N10 - Acute pyelonephritis Status: Acute Assessment and Plan: * as suggested by UA + flank pain * on Levaquin - this penetrates these cyst ngo * urine culture negative (3) Nausea & vomiting: Code(s): R11.2 - Nausea with vomiting, unspecified Status: Acute Assessment and Plan: * quite persistent in spite of antiemtic therapy * continue current therapy - will try to make zofran scheduled to see if that helps * related to antibiotic?? (4) Polycystic kidney disease: Code(s): Q61.3 - Polycystic kidney, unspecified Status: Chronic Assessment and Plan: * known history * Urology recommendations noted (5) HTN (hypertension): Onset Date: ~1983 Qualifiers: Hypertension type: essential hypertension Qualified Code(s): I10 - Essential (primary) hypertension Code(s): I10 - Essential (primary) hypertension Status: Chronic Assessment and Plan: * blood pressure is under good control * follow trend of hemodynamics (6) Anemia: Code(s): D64.9 - Anemia, unspecified Status: Chronic Assessment and Plan: * due to ESRD and acute illness * Epogen 3x/week * follow trend of H/H (7) Diabetes mellitus: Onset Date: ~1995 Qualifiers: Diabetes mellitus type: type 2 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 Subjective Date/time seen: 06/23/22 13:15 CCPD treatments overnight are without any events or issues; continues to have nausea and vomiting with any oral intake; seems to be getting frustrated by this ongoing problems despite interventions to date; no acute distress noted. Exam Narrative: General: WD/WN female in NAD Heart: normal S1 and S2; no rub Lungs: clear anteriorly Abdomen: soft, nontender, nondistended, positive bowel sounds Extremities: no edema Skin: no nodules Objective Data Vital Signs Vital Signs: Vital Signs Temp Pulse Resp BP Pulse Ox O2 Del Method 06/23/22 09:59 Room Air 06/23/22 07:39 98.2 F 96 18 102/52 L 06/23/22 06:00 98.2 F 96 18 95 06/23/22 05:22 102/52 L 06/22/22 22:00 98.1 F 98 18 97 06/22/22 21:22 98.1 F 96 18 103/48 L 96 06/22/22 20:00 98 Room Air 06/22/22 16:00 98.1 F 95 16 96/54 L 98 Room Air 06/22/22 14:00 98.0 F 91 16 98/72 L 90 Intake/Output Intake/Output: Intake & Output 06/20/22 06/21/22 06/22/22 06/23/22 23:59 23:59 23:59 23:59 Intake Total 1180 1220 1190 520 Output To
--- NOTE | 2022-06-23 13:15 | PM.PNNEP ---
Progress Note: A&P Assessment and Plan (1) End stage renal disease: Code(s): N18.6 - End stage renal disease Status: Chronic Assessment and Plan: continue nightly CCPD her dialysis adequacy is at goal from outpatient records follow electrolytes, volume status, and clearance (2) Acute pyelonephritis: Code(s): N10 - Acute pyelonephritis Status: Acute Assessment and Plan: as suggested by UA + flank pain on Levaquin - this penetrates these cyst ngo urine culture negative (3) Nausea & vomiting: Code(s): R11.2 - Nausea with vomiting, unspecified Status: Acute Assessment and Plan: quite persistent in spite of antiemtic therapy continue current therapy - will try to make zofran scheduled to see if that helps related to antibiotic?? (4) Polycystic kidney disease: Code(s): Q61.3 - Polycystic kidney, unspecified Status: Chronic Assessment and Plan: known history Urology recommendations noted (5) HTN (hypertension): Onset Date: ~1983 Qualifiers: Hypertension type: essential hypertension Qualified Code(s): I10 - Essential (primary) hypertension Code(s): I10 - Essential (primary) hypertension Status: Chronic Assessment and Plan: blood pressure is under good control follow trend of hemodynamics (6) Anemia: Code(s): D64.9 - Anemia, unspecified Status: Chronic Assessment and Plan: due to ESRD and acute illness Epogen 3x/week follow trend of H/H (7) Diabetes mellitus: Onset Date: ~1995 Qualifiers: Diabetes mellitus type: type 2 Diabetes mellitus senior care insulin use: without senior care use Diabetes mellitus complication status: without complication Qualified Code(s): E11.9 - Type 2 diabetes mellitus without complications Code(s): E11.9 - Type 2 diabetes mellitus without complications Status: Chronic Assessment and Plan: on Accu-Cheks and sliding-scale insulin continue glycemic control Will continue to follow. Subjective Date/time seen: 06/23/22 13:15 CCPD treatments overnight are without any events or issues; continues to have nausea and vomiting with any oral intake; seems to be getting frustrated by this ongoing problems despite interventions to date; no acute distress noted. Exam Narrative: General: WD/WN female in NAD Heart: normal S1 and S2; no rub Lungs: clear anteriorly Abdomen: soft, nontender, nondistended, positive bowel sounds Extremities: no edema Skin: no nodules Objective Data Vital Signs Vital Signs: Vital Signs Temp Pulse Resp BP Pulse Ox O2 Del Method 06/23/22 09:59 Room Air 06/23/22 07:39 98.2 F 96 18 102/52 L 06/23/22 06:00 98.2 F 96 18 95 06/23/22 05:22 102/52 L 06/22/22 22:00 98.1 F 98 18 97 06/22/22 21:22 98.1 F 96 18 103/48 L 96 06/22/22 20:00 98 Room Air 06/22/22 16:00 98.1 F 95 16 96/54 L 98 Room Air 06/22/22 14:00 98.0 F 91 16 98/72 L 90 Intake/Output Intake/Output: Intake & Output 06/20/22 06/21/22 06/22/22 06/23/22 23:59 23:59 23:59 23:59 Intake Total 1180 1220 1190 520 Output Total 1222 996 637 569 Balance -42 224 553 -49 Meds/Results Medications: Active Medications Generic Name Dose Route Start Last Admin Trade Name Freq PRN Reason Stop Dose Admin Allopurinol 150 mg 06/17/22 09:00 06/23/22 09:36 Allopurinol 150 Mg Tablet PO 150 mg DAILY CONSTANZA Administration Cyclobenzaprine HCl 10 mg 06/16/22 13:02 06/20/22 11:45 Cyclobenzaprine Hcl 10 Mg Tablet PO 10 mg DAILY PRN Administration muscle spasm Dextrose 12.5 gm 06/16/22 12:58 Dextrose 50% 25 Gm/50 Ml Syringe IV PUSH PRN PRN Hypoglycemia Protocol Epoetin Odilon-epbx 10,000 units 06/18/22 09:00 06/23/22 09:53 Epoetin Odilon-Epbx 10,000 Units/Ml Vial SUB-Q 10,000 units [facility]
--- NOTE | 2022-06-23 13:38 | WPDGIPROGNO ---
Progress Note: A&P Assessment and Plan (1) Right flank pain: Code(s): R10.9 - Unspecified abdominal pain Status: Acute Assessment and Plan: Right flank pain persists. Differential diagnosis includes pyelonephritis associated with her active UTI versus pain from bleeding in to assist as suggested by imaging studies. Suggest ongoing nephrology, Urology follow-up. (2) Polycystic kidney disease: Code(s): Q61.3 - Polycystic kidney, unspecified Status: Acute (3) UTI (urinary tract infection): Code(s): N39.0 - Urinary tract infection, site not specified Status: Acute Assessment and Plan: UTI appears to account for epigastric discomfort. (4) End stage renal disease: Code(s): N18.6 - End stage renal disease Status: Chronic Plan No specific GI intervention anticipated at this time. Subjective Date/time seen: 06/23/22 13:38 Interval history: Patient continues to have left flank pain and some suprapubic discomfort. Tolerating diet. Bowel habits appear normal. Nausea appears to have lessened. Review of Systems Review of Systems: Review of systems noncontributory. Exam Narrative: Physical exam reveals patient be alert. Vital signs stable. HEENT exam reveals no icterus. Lungs are clear. Heart without murmur. Abdomen soft suprapubic tenderness noted. Right flank pain persists. Objective Data Vital Signs Vital Signs: Vital Signs - 24 hr 06/22/22 14:00 06/22/22 16:00 06/22/22 20:00 Temperature 98.0 F 98.1 F Pulse Rate 91 95 Respiratory Rate 16 16 Blood Pressure 98/72 L 96/54 L Pulse Oximetry 90 98 98 Oxygen Delivery Room Air Room Air 06/22/22 21:22 06/22/22 22:00 06/23/22 05:22 Temperature 98.1 F 98.1 F Pulse Rate 96 98 Respiratory Rate 18 18 Blood Pressure 103/48 L 102/52 L Pulse Oximetry 96 97 Oxygen Delivery 06/23/22 06:00 06/23/22 07:39 06/23/22 09:59 Temperature 98.2 F 98.2 F Pulse Rate 96 96 Respiratory Rate 18 18 Blood Pressure 102/52 L Pulse Oximetry 95 Oxygen Delivery Room Air Intake/Output Intake/Output: Intake & Output 06/20/22 06/21/22 06/22/22 06/23/22 23:59 23:59 23:59 23:59 Intake Total 1180 1220 1190 520 Output Total 1222 996 637 569 Balance -42 224 553 -49 Meds/Results Medications: Active Medications Generic Name Dose Route Start Last Admin Trade Name Shree PRN Reason Stop Dose Admin Allopurinol 150 mg 06/17/22 09:00 06/23/22 09:36 Allopurinol 150 Mg Tablet PO 150 mg DAILY CONSTANZA Administration Cyclobenzaprine HCl 10 mg 06/16/22 13:02 06/20/22 11:45 Cyclobenzaprine Hcl 10 Mg Tablet PO 10 mg DAILY PRN Administration muscle spasm Dextrose 12.5 gm 06/16/22 12:58 Dextrose 50% 25 Gm/50 Ml Syringe IV PUSH PRN PRN Hypoglycemia Protocol Epoetin Odilon-epbx 10,000 units 06/18/22 09:00 06/23/22 09:53 Epoetin Odilon-Epbx 10,000 Units/Ml Vial SUB-Q 10,000 units TUTHSA CONSTANZA Administration Fluticasone Propionate 1 spray 06/16/22 17:00 06/23/22 09:37 Fluticasone Propionate 0.05% Na Spr 16 Gm Btl (*Bkc) NASAL 1 spray BID CONSTANZA Administration Furosemide 80 mg 06/16/22 17:00 06/21/22 17:14 Furosemide 80 Mg Tablet PO Not Given BID CONSTANZA Glucagon 1 mg 06/16/22 12:58 Glucagon For Inj 1 Mg Vial IM PRN PRN Hypoglycemia Protocol Glucose 15 gm 06/16/22 12:58 Glucose Oral Gel 15 Gm Of Glucse In 37.5 Gm Tube PO PRN PRN Hypoglycemia Protocol Heparin Sodium (Porcine) 5,000 units 06/16/22 21:00 06/23/22 09:45 Heparin Sodium 5,000 Units/Ml Vial SUB-Q 5,000 units Q12HR CONSTANZA Administration Dextrose 1,000 mls @ 100 mls/hr 06/16/22 12:58 Dextrose 5% 1,000 Ml IVPB PRN PRN Hypoglycemia Protocol Insulin Aspart 2 - 5 units 06/16/22 17:00 06/23/22 11:58 Insulin Aspart (*Bkc) 100 Units/Ml SUB-Q Not Given TIDWM CONSTANZA Protocol Levothyroxin
[2022-06-23 16:26] LABS: Glucose Point of Care 215 mg/dl (65-105)
[2022-06-23] MEDS: PANTOPRAZOLE 40 MG TABLET PO (16:34)
[2022-06-23] MEDS: INSULIN ASPART (*BKC) 100 UNITS/ML SUB-Q (17:04)
[2022-06-23 20:10] LABS: Glucose Point of Care 313 mg/dl (65-105)
[2022-06-23] MEDS: SODIUM CHLORIDE 0.9% IV 250 ML IV CONT ×2 (21:59→23:54)
[2022-06-23] MEDS: ONDANSETRON HCL ODT 4 MG TABLET PO (23:04)
[2022-06-24] MEDS: ALBUMIN HUMAN 25% 25 GM/100 ML 100 ML IVPB ×2 (01:00→02:56)
[2022-06-24 02:40] VITALS: BP 76/40
[2022-06-24] MEDS: ONDANSETRON HCL ODT 4 MG TABLET PO ×3 (05:18→16:59)
[2022-06-24] MEDS: LEVOTHYROXINE SODIUM 12.5 MCG TABLET PO (05:18)
[2022-06-24 05:29] VITALS: BP 90/44; PULSE 87; RESP 12; TEMP 36.8; O2SAT 100
[2022-06-24 07:17] VITALS: BP 90/44; PULSE 87; RESP 12; TEMP 36.8
[2022-06-24 07:18] LABS: Basophils Percent Auto 0.4 % (0.2-1.2); Eosinophils Absolute Auto 0.2 K/mm3 (0-0.3); Eosinophils Percent Auto 1.9 % (0-4.4); Hematocrit 24.9 % (37.0-47.0); Hemoglobin 7.7 g/dL (12.0-15.0); Immature Granulocyte Absolute 0.37 K/mm3 (0.00-0.031); Immature Granulocyte Percent A 3.9 % (0-0.5); Lymphocytes Absolute Auto 0.88 K/mm3 (0.9-3.2); Lymphocytes Percent Auto 9.3 % (18.3-44.2); Mean Corpuscular HGB Conc 30.9 g/dl (32-36); Mean Corpuscular Hemoglobin 31.6 pg (26-34); Mean Platelet Volume 9.3 fl (7.4-10.4); Monocytes Absolute Auto 1.2 K/mm3 (0.1-0.6); Monocytes Percent Auto 13.1 % (2.6-8.5); Neutrophils Absolute Auto 6.8 K/mm3 (1.3-6.7); Neutrophils Percent Auto 71.4 % (45.5-73.1); Platelet Count Result 164 k/mm3 (150-375); Red Blood Count 2.44 M/mm3 (4.2-5.4); Red Cell Distribution Width 14.7 % (11.5-14.5); White Blood Count 9.5 K/mm3 (4.5-10.0)
[2022-06-24 07:30] LABS: Alanine Aminotransferase 11 U/L (6-35); Albumin Level 2.8 g/dL (3.5-5.1); Alkaline Phosphatase 72 U/L (38-126); Anion Gap 10 mmol/L (8-16); Aspartate Amino Transferase 14 U/L (14-36); Bilirubin,Total 0.4 mg/dL (0.2-1.3); Blood Urea Nitrogen 39 mg/dL (7-17); Calcium 8.4 mg/dL (8.4-10.2); Carbon Dioxide 26 mmol/L (22-30); Chloride 91 mmol/L (98-107); Estimated CRCL calculation 5 ml/min; Estimated Glomerular Filt Rate 4; Glucose 127 mg/dL (65-110); Potassium 3.5 mmol/L (3.4-5.0); Sodium 127 mmol/L (137-145)
[2022-06-24] MEDS: polyethylene glycoL 3350 17 GM POWD.PACK PO (07:59)
[2022-06-24 08:00] LABS: Glucose Point of Care 135 mg/dl (65-105)
[2022-06-24] MEDS: VITAMIN B CMPLX/VIT C/FOLIC AC 1 CAPSULE 1 CAP PO (08:00)
[2022-06-24] MEDS: FLUTICASONE PROPIONATE 0.05% NA SPR 16 GM BTL (*BKC) 1 SPRAY NASAL ×2 (08:00→16:52)
[2022-06-24] MEDS: allopurinoL 150 MG TABLET PO (08:00)
[2022-06-24] MEDS: PIOGLITAZONE HCL 30 MG TABLET PO (08:00)
[2022-06-24] MEDS: LIDOCAINE 5% PATCH 2 PATCH TOPICAL (08:00)
[2022-06-24] MEDS: CHOLECALCIFEROL 1,000 UNITS TABLET 2000 UNITS PO ×2 (08:00→16:52)
[2022-06-24] MEDS: HEPARIN SODIUM 5,000 UNITS/ML VIAL 5000 UNITS SUB-Q ×2 (08:00→20:08)
[2022-06-24] MEDS: SEVELAMER CARBONATE 800 MG TABLET 5600 MG PO ×3 (08:01→16:52)
[2022-06-24] MEDS: PROCHLORPERAZINE MALEATE 5 MG TABLET 10 MG PO ×2 (08:01→16:52)
[2022-06-24] MEDS: MECLIZINE HCL 12.5 MG TABLET PO (08:01)
[2022-06-24 11:38] LABS: Glucose Point of Care 171 mg/dl (65-105)
--- NOTE | 2022-06-24 13:06 | PM.PNNEP ---
Progress Note: A&P Assessment and Plan (1) End stage renal disease: Code(s): N18.6 - End stage renal disease Status: Chronic Assessment and Plan: continue nightly CCPD her dialysis adequacy is at goal from outpatient records follow electrolytes, volume status, and clearance (2) Acute pyelonephritis: Code(s): N10 - Acute pyelonephritis Status: Acute Assessment and Plan: as suggested by UA + flank pain on Levaquin - this penetrates these cyst ngo urine culture negative (3) Nausea & vomiting: Code(s): R11.2 - Nausea with vomiting, unspecified Status: Acute Assessment and Plan: quite persistent in spite of antiemtic therapy continue current therapy - on zofran scheduled to see if that helps related to antibiotic?? (4) Polycystic kidney disease: Code(s): Q61.3 - Polycystic kidney, unspecified Status: Chronic Assessment and Plan: known history Urology recommendations noted (5) HTN (hypertension): Onset Date: ~1983 Qualifiers: Hypertension type: essential hypertension Qualified Code(s): I10 - Essential (primary) hypertension Code(s): I10 - Essential (primary) hypertension Status: Chronic Assessment and Plan: blood pressure is under good control follow trend of hemodynamics (6) Anemia: Code(s): D64.9 - Anemia, unspecified Status: Chronic Assessment and Plan: due to ESRD and acute illness Epogen 3x/week follow trend of H/H (7) Diabetes mellitus: Onset Date: ~1995 Qualifiers: Diabetes mellitus type: type 2 Diabetes mellitus long term care phlebotomist insulin use: without shelter use Diabetes mellitus complication status: without complication Qualified Code(s): E11.9 - Type 2 diabetes mellitus without complications Code(s): E11.9 - Type 2 diabetes mellitus without complications Status: Chronic Assessment and Plan: on Accu-Cheks and sliding-scale insulin continue glycemic control Will continue to follow. Subjective Date/time seen: 06/24/22 13:06 Nausea seems a bit better but not resolved at this time; peritoneal dialysis treatment was uneventful overnight; no acute distress noted aside from the aforementioned nausea; no other issues to report overnight or earlier this AM. Exam Narrative: General: WD/WN female in NAD Heart: normal S1 and S2; no rub Lungs: clear anteriorly Abdomen: soft, nontender, nondistended, positive bowel sounds Extremities: no edema Skin: warm and dry Objective Data Vital Signs Vital Signs: Vital Signs Temp Pulse Resp BP Pulse Ox O2 Del Method 06/24/22 13:00 97.7 F 93 16 123/50 L 95 06/24/22 08:10 Room Air 06/24/22 07:17 98.2 F 87 12 90/44 L 06/24/22 05:29 98.2 F 87 12 90/44 L 100 06/24/22 02:40 76/40 L 06/23/22 23:46 72/50 L 06/23/22 21:50 97.1 F L 87 12 83/44 L 99 06/23/22 20:00 Room Air Intake/Output Intake/Output: Intake & Output 06/21/22 06/22/22 06/23/22 06/24/22 23:59 23:59 23:59 23:59 Intake Total 1220 1190 990 920 Output Total 996 752 712 0787 Balance 224 998 926 -877 Meds/Results Medications: Active Medications Generic Name Dose Route Start Last Admin Trade Name Freq PRN Reason Stop Dose Admin Allopurinol 150 mg 06/17/22 09:00 06/24/22 08:00 Allopurinol 150 Mg Tablet PO 150 mg DAILY CONSTANZA Administration Cyclobenzaprine HCl 10 mg 06/16/22 13:02 06/20/22 11:45 Cyclobenzaprine Hcl 10 Mg Tablet PO 10 mg DAILY PRN Administration muscle spasm Dextrose 12.5 gm 06/16/22 12:58 Dextrose 50% 25 Gm/50 Ml Syringe IV PUSH PRN PRN Hypoglycemia Protocol Epoetin Odilon-epbx 10,000 units 06/18/22 09:00 06/23/22 09:53 Epoetin Odilon-Epbx 10,000 Units/Ml Vial SUB-Q 10,000 units TUTHSA CONSTANZA Administration Fluticasone Propionate 1 spray 06/16/22 17:00
--- NOTE | 2022-06-24 13:06 | P.PNNP_ITS ---
Progress Note: A&P Assessment and Plan (1) End stage renal disease: Code(s): N18.6 - End stage renal disease Status: Chronic Assessment and Plan: * continue nightly CCPD * her dialysis adequacy is at goal from outpatient records * follow electrolytes, volume status, and clearance (2) Acute pyelonephritis: Code(s): N10 - Acute pyelonephritis Status: Acute Assessment and Plan: * as suggested by UA + flank pain * on Levaquin - this penetrates these cyst ngo * urine culture negative (3) Nausea & vomiting: Code(s): R11.2 - Nausea with vomiting, unspecified Status: Acute Assessment and Plan: * quite persistent in spite of antiemtic therapy * continue current therapy - on zofran scheduled to see if that helps * related to antibiotic?? (4) Polycystic kidney disease: Code(s): Q61.3 - Polycystic kidney, unspecified Status: Chronic Assessment and Plan: * known history * Urology recommendations noted (5) HTN (hypertension): Onset Date: ~1983 Qualifiers: Hypertension type: essential hypertension Qualified Code(s): I10 - Essential (primary) hypertension Code(s): I10 - Essential (primary) hypertension Status: Chronic Assessment and Plan: * blood pressure is under good control * follow trend of hemodynamics (6) Anemia: Code(s): D64.9 - Anemia, unspecified Status: Chronic Assessment and Plan: * due to ESRD and acute illness * Epogen 3x/week * follow trend of H/H (7) Diabetes mellitus: Onset Date: ~1995 Qualifiers: Diabetes mellitus type: type 2 Diabetes mellitus crystalizer insulin use: without crystalizer use Diabetes mellitus complication status: without complication Qualified Code(s): E11.9 - Type 2 diabetes mellitus without complications Code(s): E11.9 - Type 2 diabetes mellitus without complications Status: Chronic Assessment and Plan: * on Accu-Cheks and sliding-scale insulin * continue glycemic control Will continue to follow. Subjective Date/time seen: 06/24/22 13:06 Nausea seems a bit better but not resolved at this time; peritoneal dialysis tr eatment was uneventful overnight; no acute distress noted aside from the aforementioned nausea; no other issues to report overnight or earlier this AM. Exam Narrative: General: WD/WN female in NAD Heart: normal S1 and S2; no rub Lungs: clear anteriorly Abdomen: soft, nontender, nondistended, positive bowel sounds Extremities: no edema Skin: warm and dry Objective Data Vital Signs Vital Signs: Vital Signs Temp Pulse Resp BP Pulse Ox O2 Del Method 06/24/22 13:00 97.7 F 93 16 123/50 L 95 06/24/22 08:10 Room Air 06/24/22 07:17 98.2 F 87 12 90/44 L 06/24/22 05:29 98.2 F 87 12 90/44 L 100 06/24/22 02:40 76/40 L 06/23/22 23:46 72/50 L 06/23/22 21:50 97.1 F L 87 12 83/44 L 99 06/23/22 20:00 Room Air Intake/Output Intake/Output: Intake & Output 06/21/22 06/22/22 06/23/22 06/24/22 23:59 23:59 23:59 23:59 Intake Total 1220 1190 990 920 Output Total 996 259 237 7650 Balance 224 394 676 -199 Meds/Re
--- NOTE | 2022-06-24 13:16 | PM.IMPN ---
Progress Note: A&P Assessment and Plan (1) Acute pyelonephritis: Code(s): N10 - Acute pyelonephritis Status: Acute (2) Anemia: Code(s): D64.9 - Anemia, unspecified Status: Chronic (3) UTI (urinary tract infection): Code(s): N39.0 - Urinary tract infection, site not specified Status: Acute (4) Right renal mass: Code(s): N28.89 - Other specified disorders of kidney and ureter Status: Acute (5) End-stage renal disease on peritoneal dialysis: Code(s): N18.6 - End stage renal disease; Z99.2 - Dependence on renal dialysis Status: Chronic (6) Diabetes mellitus: Onset Date: ~1995 Qualifiers: Diabetes mellitus type: type 2 Diabetes mellitus fci insulin use: without supervisor long goods use Diabetes mellitus complication status: without complication Qualified Code(s): E11.9 - Type 2 diabetes mellitus without complications Code(s): E11.9 - Type 2 diabetes mellitus without complications Status: Chronic Plan Urine cultures no growth Continue IV hydration. Monitor CBC CMP monitor for sepsis. Monitor vital signs Stopped antibiotics Monitor for obstructive uropathy and pyelonephritis CRF on dialysis And gentle hydration. Avoid nephrotoxic drugs. Monitor antihypertensive drugs Avoid NSAIDs. Routine CMP monitor GFR. site operations manager H&H 7.724.9 acute loss Will order stool for occult blood Yearly eye exam and foot exam. HBA1c ( goal <7.0%) , Renal functions, Liver panel every 3 months Monitor vitamin B12 levels Optimize YENY-inhibitor and statin Routine glucose monitoring. Watch for Hypoglycemia. BMI goal < 25 Sliding scale Actos levothyroxine continue Patient nausea and vomiting possibly secondary to diabetic gastroparesis Anemia of chronic disease. Right kidney mass possibly right cystic kidney urology on consult. Liver nodule suspicious for cirrhosis GI consulted Time Spent With Patient Time: DVT prophylaxis. GI prophylaxis. All records reviewed Discussed plan of care with the nursing staff and with the patient in detail. Answered all questions and concerns from the patient. All labs have been reviewed. Code status updated dictation may have been done utilizing a voice recognition system. Attempts have been made to correct errors. However, there may be uncorrected grammatical, spelling, and recognition errors present. Subjective Date/time seen: 06/24/22 13:16 Interval history: Very anxious to leave the hospital Exam Narrative: And was GENERAL: Well appearing, well-nourished, non-toxic, in no acute distress. HEAD: Normocephalic, atraumatic. NECK: Supple. No adenopathy, no masses. RESPIRATORY: Airway patent, respirations nonlabored. Clear to auscultation bilaterally, no rales, rhonchi, wheezing. CARDIOVASCULAR: Regular rate and rhythm without murmurs, rubs, or gallops. Peripheral pulses 2+ and equal bilaterally. ABDOMINAL: Soft, nontender, nondistended, no hepatosplenomegaly. Normoactive BS. MUSCULOSKELETAL: no Epigastric and no hypochondrial tenderness SKIN: Warm, dry, normal color. No rashes. NEURO: A&O X3. Moves all extremities PSYCHIATRIC: Appropriate mood and affect. Normal interaction. Objective Data Vital Signs Vital Signs: Vital Signs - 24 hr 06/23/22 14:00 06/23/22 16:45 06/23/22 20:00 Temperature 36.1 C L 36.1 C L Pulse Rate 88 88 Respiratory Rate 18 18 Blood Pressure 106/48 L 106/48 L Pulse Oximetry 98 Oxygen Delivery Room Air Room Air 06/23/22 21:50 06/23/22 23:46 06/24/22 02:40 Temperature 36.2 C L Pulse Rate 87 Respiratory Rate 12 Blood Pressure 83/44 L 72/50 L 76/40 L Pulse Oximetry 99 Oxygen Delivery 06/24/22 05:29 06/24/22 07:17 06/24/22 08:10 Temperature 36.8 C 36.8 C Pulse Rate 87 87 Respiratory Rate 12 12 Blood Pressure 90/44 L 90/44 L Pulse Oximetry 100 Oxygen Delivery Room Air Intake/Output Intake/Output: Intake & Output 06/21
[2022-06-24 14:00] VITALS: BP 123/50; PULSE 93; RESP 16; TEMP 36.5; O2SAT 95
[2022-06-24 16:21] LABS: Glucose Point of Care 200 mg/dl (65-105)
[2022-06-24 16:24] VITALS: BP 90/44; PULSE 87; RESP 12; TEMP 36.8
[2022-06-24] MEDS: PANTOPRAZOLE 40 MG TABLET PO (16:52)
[2022-06-24 20:34] LABS: Glucose Point of Care 332 mg/dl (65-105)
[2022-06-24 20:39] VITALS: BP 106/54; PULSE 96; RESP 20; TEMP 36.6; O2SAT 97
[2022-06-25] MEDS: LEVOTHYROXINE SODIUM 12.5 MCG TABLET PO (05:40)
[2022-06-25] MEDS: ONDANSETRON HCL ODT 4 MG TABLET PO ×2 (05:40→12:11)
[2022-06-25 05:54] VITALS: BP 104/52; PULSE 90; RESP 18; TEMP 36.6; O2SAT 99
[2022-06-25 07:05] VITALS: BP 104/52; PULSE 90; RESP 18; TEMP 36.6
[2022-06-25 07:57] LABS: Glucose Point of Care 170 mg/dl (65-105)
[2022-06-25] MEDS: SEVELAMER CARBONATE 800 MG TABLET 5600 MG PO ×2 (08:23→12:08)
[2022-06-25] MEDS: PROCHLORPERAZINE MALEATE 5 MG TABLET 10 MG PO (08:24)
[2022-06-25] MEDS: VITAMIN B CMPLX/VIT C/FOLIC AC 1 CAPSULE 1 CAP PO (08:24)
[2022-06-25] MEDS: MECLIZINE HCL 12.5 MG TABLET PO (08:24)
[2022-06-25] MEDS: LIDOCAINE 5% PATCH 2 PATCH TOPICAL (08:24)
[2022-06-25] MEDS: allopurinoL 150 MG TABLET PO (08:24)
[2022-06-25] MEDS: CHOLECALCIFEROL 1,000 UNITS TABLET 2000 UNITS PO (08:24)
[2022-06-25] MEDS: FLUTICASONE PROPIONATE 0.05% NA SPR 16 GM BTL (*BKC) 1 SPRAY NASAL (08:25)
[2022-06-25] MEDS: PIOGLITAZONE HCL 30 MG TABLET PO (08:25)
[2022-06-25] MEDS: polyethylene glycoL 3350 17 GM POWD.PACK PO (08:25)
[2022-06-25] MEDS: EPOETIN ALFA-EPBX 10,000 UNITS/ML VIAL 10000 UNITS SUB-Q (08:25)
[2022-06-25] MEDS: HEPARIN SODIUM 5,000 UNITS/ML VIAL 5000 UNITS SUB-Q (08:25)
[2022-06-25 09:12] LABS: Hematocrit 28.3 % (37.0-47.0); Hemoglobin 8.7 g/dL (12.0-15.0); Mean Corpuscular HGB Conc 30.7 g/dl (32-36); Mean Platelet Volume 9.9 fl (7.4-10.4); Platelet Count Result 175 k/mm3 (150-375); Red Blood Count 2.72 M/mm3 (4.2-5.4); Red Cell Distribution Width 15.2 % (11.5-14.5); White Blood Count 13.6 K/mm3 (4.5-10.0)
[2022-06-25 09:28] LABS: Alanine Aminotransferase 12 U/L (6-35); Albumin Level 2.9 g/dL (3.5-5.1); Alkaline Phosphatase 94 U/L (38-126); Anion Gap 9 mmol/L (8-16); Aspartate Amino Transferase 17 U/L (14-36); Bilirubin,Total 0.3 mg/dL (0.2-1.3); Blood Urea Nitrogen 40 mg/dL (7-17); Calcium 8.5 mg/dL (8.4-10.2); Carbon Dioxide 24 mmol/L (22-30); Chloride 95 mmol/L (98-107); Estimated CRCL calculation 6 ml/min; Estimated Glomerular Filt Rate 5; Glucose 183 mg/dL (65-110); Potassium 3.7 mmol/L (3.4-5.0); Sodium 128 mmol/L (137-145)
[2022-06-25 11:41] LABS: Glucose Point of Care 172 mg/dl (65-105)
--- NOTE | 2022-06-25 11:48 | PM.DS ---
DS: Admitting Diagnosis Discharge Date June 25, 2022 Admitting Diagnosis renal failure DS: Discharge Diagnosis Discharge Diagnosis (1) Nausea & vomiting: Code(s): R11.2 - Nausea with vomiting, unspecified Status: Acute (2) Polycystic kidney disease: Code(s): Q61.3 - Polycystic kidney, unspecified Status: Acute (3) UTI (urinary tract infection): Code(s): N39.0 - Urinary tract infection, site not specified Status: Acute (4) End stage renal disease: Code(s): N18.6 - End stage renal disease Status: Chronic (5) Right renal mass: Code(s): N28.89 - Other specified disorders of kidney and ureter Status: Acute (6) Anemia of chronic disease: Code(s): D63.8 - Anemia in other chronic diseases classified elsewhere Status: Chronic DS: Summary Hospital Course Hospital Course: This is a 60-year-old female with past medical history of end-stage renal disease related to polycystic kidney disease on peritoneal dialysis started about 5 years back presents with 1 week history of right flank pain which has been gradually worsening.? She makes very little urine but she had noted some blood in her urine recently.? She denies any fever or chills.? She states that she had some pain in her left flank about [place] time which resolved spontaneously.? She rates her pain about 7-8 of 10 in intensity sharp shooting pain.? Nonradiating.? In the ER is found to have urinary tract infection and CT evidence of fat stranding around the right kidney.? She got a dose of levofloxacin for her UTI/pyelonephritis? CT of the abdomen showed 4.6 cm mass in the right kidney. Patient considering CT or MRI with contrast. Patient seen by Nephrology. Also has history of a nodular liver suspicious for cirrhosis. Urology is consulted as well have patient had nausea initially which has resolved now possibly secondary to diabetic gastroparesis patient has finished a dose of antibiotics will discontinue that patient electrolytes are stable creatinine still high patient has end-stage renal disease on dialysis will continue continue monitor electrolytes patient is cleared to be discharged. Close follow-up with Urology and GI as outpatient for liver mass and renal mass advised patient hemoglobin has been slightly improving but slowly current H&H is 8.7/28.3 will advised to recheck H&H in 2-3 days. her repeat stools for occult blood. Patient will be going home on iron pills possible cause of anemia is chronic renal disease. Currently on Epogen. also noted low sodium which could be secondary to fluid overload continue dialysis and monitor electrolyte Time Spent with Patient Time attestation: Total time spent providing and/or coordinating discharge services: Exam Narrative: GENERAL: Well appearing, well-nourished, non-toxic, in no acute distress. HEAD: Normocephalic, atraumatic. NECK: Supple. No adenopathy, no masses. RESPIRATORY: Airway patent, respirations nonlabored. Clear to auscultation bilaterally, no rales, rhonchi, wheezing. CARDIOVASCULAR: Regular rate and rhythm without murmurs, rubs, or gallops. Peripheral pulses 2+ and equal bilaterally. ABDOMINAL: Soft, nontender, nondistended, no hepatosplenomegaly. Normoactive BS. MUSCULOSKELETAL: no Epigastric and no hypochondrial tenderness SKIN: Warm, dry, normal color. No rashes. NEURO: A&O X3. Moves all extremities PSYCHIATRIC: Appropriate mood and affect. Normal interaction. DS: Data Data Completed and Pending Labs on day of discharge: Labs from last 24 hours 06/25/22 06/25/22 06/25/22 11:33 08:57 08:57 WBC 13.6 H RBC 2.72 L Hgb 8.7 L Hct 28.3 L MCV 104.0 H MCH 32.0 MCHC 30.7 L RDW 15.2 H Plt Count 175 MPV 9.9 Sodium 128 L Potassium 3.7 Chloride 95 L Carbon Dioxide 24 Anion Gap 9 BUN 40 H Creatinine 8.80 H Estim Creat Clear Calc 6 Estimated GFR 5 L Glucose 183 H POC C
== END 2022-06-25 12:50 | disposition home or self-care (01) | DRG 690 ==
LOC: ANHED 07:17 → ANH3MEDSUR 08:23
PROVIDERS: Internal Medicine; Internal Medicine Nephrology; Admitting Provider Internal Medicine; Emergency Provider Emergency Medicine; PCP Family Medicine; Visit Provider Internal Medicine
DX: N10 Acute pyelonephritis (principal); Q61.3 Polycystic kidney, unspecified; I15.1 Hypertension secondary to other renal disorders; E11.22 Type 2 diabetes mellitus with diabetic chronic kidney disease; R16.0 Hepatomegaly, not elsewhere classified; N18.6 End stage renal disease; Z99.2 Dependence on renal dialysis; K31.84 Gastroparesis; N28.89 Other specified disorders of kidney and ureter; D63.1 Anemia in chronic kidney disease; E03.9 Hypothyroidism, unspecified; E11.43 Type 2 diabetes mellitus with diabetic autonomic (poly)neuropathy; E55.9 Vitamin D deficiency, unspecified; J45.909 Unspecified asthma, uncomplicated; G89.29 Other chronic pain; K21.9 Gastro-esophageal reflux disease without esophagitis; M10.9 Gout, unspecified; M54.9 Dorsalgia, unspecified; R31.9 Hematuria, unspecified; Z20.822 Contact with and (suspected) exposure to COVID-19; Z90.710 Acquired absence of both cervix and uterus; Z90.49 Acquired absence of other specified parts of digestive tract; Z79.84 Long term (current) use of oral hypoglycemic drugs; Z88.0 Allergy status to penicillin
CPT/HCPCS: 36415; 51701; 74176; 74183; 78264; 80053; 81001; 82948; 83036; 83690; 83735; 84100; 85025; 85027; 87040; 87070; 87075; 87086; 87205; 87340; 87637; 90945; 96365; 96372; 99285; A9270; A9541; A9577; G0378; J1644; J1815; J1956; J2270; J3030; J7050; P9047; Q5105

== ENCOUNTER 2022-07-13 12:19 | Observation (INO) | payer MEDICARE, OTHER, SELFPAY ==
[2022-07-13] VITALS (30 sets, daily range): BP systolic 102–128; BP diastolic 46–74; PULSE 79–106; RESP 13–20; TEMP 36.1–36.6; O2SAT 97–100; BMI 25.5
--- NOTE | ~2022-07-13 | US_ITS ---
EXAMINATION: US abdomen limited DATE: 07/15/2022 13:08 INDICATION: Right upper quadrant abdominal pain. TECHNIQUE: Multiple grayscale and Doppler ultrasound images of the abdomen were obtained. COMPARISON: CT abdomen and pelvis 07/13/2022 FINDINGS: The visualized portions of the head and body of the pancreas are normal. There are innumera ble cysts in the liver measuring up to at least 2.5 cm. The gallbladder is absent. The common duct is normal and measures 7 mm. IMPRESSION: 1. Innumerable cysts in the liver, consistent with polycystic kidney disease. Reviewed, dictated and finalized at location A. TRIC RANGE ASSEMBLER
--- NOTE | ~2022-07-13 | XR_ITS ---
EXAMINATION: XR chest 2V DATE: 07/13/2022 13:18 INDICATION: Chest pain. Cough. TECHNIQUE: Frontal and lateral views of the chest were obtained. COMPARISON: Chest single view 06/08/2021, CT abdomen and pelvis 06/20/2022 FINDINGS: There are mild airspace opacities in right mid and lower lung zones and left lower lung zon e. No pleural effusion or pneumothorax. The heart size is normal. There is a chronic mild compression fracture of T12. IMPRESSION: 1. Mild airspace opacities in right mid and lower lung zones and left lower lung zone with improvemen t from 06/08/21, consider with mild chronic lung disease. Reviewed, dictated and finalized at location A. KER IMPRESSION: 1. Mild airspace opacities in right mid and lower lung zones and left lower tiny g zone with improvement from 06/08/21, consider with mild chronic lung disease.
--- NOTE | ~2022-07-13 | US_ITS ---
EXAMINATION: US renal BI DATE: 07/14/2022 20:44 INDICATION: Flank pain TECHNIQUE: Multiple ultrasound grayscale images of the kidneys were obtained. COMPARISON: CT dated 07/13/2022 FINDINGS: The right kidney measures 11.2 x 6.0 x 7.0 cm. The left kidney measures 10.4 x 5.9 x 6.1 cm. Both kid neys demonstrate heterogeneous spongiform appearance with numerous small anechoic cysts, numerous int ervening hyperechoic cyst ngo and small amount of intervening hyperechoic renal parenchyma. Small b ilateral renal stones evident on prior CT are unable to be distinguished from the echogenic cyst wall s associated shadowing refraction artifact. There is no hydronephrosis in either kidney. The bladder is nonvisualized, likely decompressed. IMPRESSION: 1. Spongiform appearance to the bilateral kidneys with numerous small cysts consistent with autosoma l dominant polycystic kidney disease. No hydronephrosis. Reviewed, dictated and finalized at location A. STRIPPER IMPRESSION: 1. Spongiform appearance to the bilateral kidneys with numerous small cysts co nsistent with autosomal dominant polycystic kidney disease. No hydronephrosis.
--- NOTE | ~2022-07-13 | CT_ITS ---
Clinical Indication: Chest pain, abdominal pain CT Scan of the Chest, Abdomen, and Pelvis with Contrast: Technique: Contiguous sections were acquired throughout the chest, abdomen, and pelvis after intraven ous administration of 100 cc of Omnipaque 350. Dose reduction technique was used on this scan by myra resendez automated exposure control and iterative reconstruction technique. The dose-length product (DL P) was 1042.33 mGy-cm. COMPARISON: 06/20/2022 Findings: There is no evidence of any significant mediastinal, hilar or axillary lymphadenopathy. Fat-containin g hiatal hernia noted. No aortic aneurysm or dissection. No pulmonary embolus.. There is no evidence of pleural or pericardial effusion. There are scattered areas of scarring or linear atelectasis, more extensive in the right lung than th e left. No suspicious pulmonary nodule or consolidation evident. Stable polycystic hepatic disease, especially affecting the left hepatic lobe with additional coarse parenchymal calcifications. Polycystic bilateral kidney disease is stable from prior exam, including a large complex cyst versus subcapsular collection of the right kidney. Low-density areas in the sple en suggest splenic infarcts. The pancreas and adrenal glands are within normal limits. Cholecystectom y clips noted. No evidence of aortic aneurysm. No lymphadenopathy. No bowel obstruction or bowel wall thickening. There is no diverticulosis without diverticulitis. Urinary bladder is collapsed. Renal dialysis catheter present with small amount of ascites. Patient i s post hysterectomy. No adnexal mass seen. Impression: Stable polycystic disease of the liver and kidneys. The largest, complex cystic lesion of the right k idney has an appearance somewhat more suggestive of a subcapsular collection rather than typical shonda l cyst. Correlate clinically. No pulmonary embolus. Scattered areas of pulmonary scarring or linear atelectasis, as noted above. Peritoneal dialysis catheter with small amount of ascites. Reviewed, dictated and finalized at location . NSE DISTRIBUTOR Impression: Stable polycystic disease of the liver and kidneys. The largest, complex cystic lesion of the right kidney has an appearance somewhat more suggestive of a sub capsular collection rather than typical renal cyst. Correlate clinically. No pulmonary embolus. Scattered areas of pulmonary scarring or linear atelectasis, as noted above. Peritoneal dialysis catheter with small amount of ascites.
--- NOTE | ~2022-07-13 | NM_ITS ---
EXAMINATION: NM tressa stress w perfusion DATE: 07/15/2022 13:56 INDICATION: Chest pain. TECHNIQUE: Rest images were obtained following intravenous administration of 8 mCi Tc99m tetrofosmin (Myoview). The patient was infused intravenously with Lexiscan (regadenoson). Then, 28 mCi Tc99m tetr ofosmin (Myoview) was administered intravenously, and stress images were obtained. Data was reconstru cted into short axis and horizontal and vertical long axis SPECT images. Gated SPECT images were also obtained. COMPARISON: CT 07/13/2022 FINDINGS: There is no definite reversible or fixed perfusion abnormality to suggest ischemia or infar ction. There is no segmental wall motion abnormality. Left ventricular ejection fraction measures 6 5%. IMPRESSION: 1. No definite ischemia or infarct. 2. Normal left ventricular ejection fraction measuring 65%. Reviewed, dictated and finalized at location A. ERER ELECTRONIC
--- NOTE | 2022-07-13 12:24 | ECG_ITS ---
Measurements Intervals [place] Rate: 103 P: 42 MS: 138 QRS: 20 QRSD: 80 T: -48 QT: 351 QTc: 460 Interpretive Statements SINUS TACHYCARDIA WITH OCCASIONAL VENTRICULAR PREMATURE COMPLEXES MODERATE T-WAVE ABNORMALITY, CONSIDER ANTEROLATERAL ISCHEMIA [-0.1+ mV T-WAVE IN V3-V6] MODERATE T-WAVE ABNORMALITY, CONSIDER INFERIOR ISCHEMIA [-0.1+ mV T-WAVE IN II/aVF] COMPARED TO ECG 06/08/2021 08:45:51 NO SIGNIFICANT CHANGES Electronically Signed On 07-13-2022 16:16:21 FELTING MACHINE OPERATOR HELPER by Rosenda Gray M.D.
[2022-07-13 13:17] LABS: Basophils Absolute Auto 0.1 K/mm3 (0.0-0.1); Basophils Percent Auto 0.5 % (0.2-1.2); Eosinophils Percent Auto 0.2 % (0-4.4); Hematocrit 36.2 % (37.0-47.0); Hemoglobin 11.1 g/dL (12.0-15.0); Immature Granulocyte Absolute 0.16 K/mm3 (0.00-0.031); Lymphocytes Absolute Auto 1.44 K/mm3 (0.9-3.2); Lymphocytes Percent Auto 8.7 % (18.3-44.2); Mean Corpuscular HGB Conc 30.7 g/dl (32-36); Mean Corpuscular Hemoglobin 30.8 pg (26-34); Mean Corpuscular Volume 100.6 fl (80-100); Mean Platelet Volume 10.2 fl (7.4-10.4); Monocytes Absolute Auto 1.4 K/mm3 (0.1-0.6); Monocytes Percent Auto 8.5 % (2.6-8.5); Neutrophils Absolute Auto 13.4 K/mm3 (1.3-6.7); Neutrophils Percent Auto 81.1 % (45.5-73.1); Platelet Count Result 370 k/mm3 (150-375); Red Cell Distribution Width 14.6 % (11.5-14.5); White Blood Count 16.6 K/mm3 (4.5-10.0)
--- NOTE | 2022-07-13 13:28 | ED.CHESTPAIN ---
HPI - Chest Pain General Chief Complaint: Chest Pain Stated Complaint: chest pressure Time Seen by Provider: 07/13/22 12:50 History of Present Illness HPI narrative: Patient is a 66-year-old female with a history of polycystic kidney disease on peritoneal dialysis, hypertension, hyperlipidemia, hypothyroidism presenting with dyspnea. Patient states that for the last 3 days she has had persistent shortness of breath. States that she has had chest heaviness and discomfort. Also reports right-sided abdominal pain that goes into the right side of her chest that is worse with taking deep breaths. Patient also reports nausea, vomiting, diarrhea. Related Data Home Medications Medication Instructions Recorded Confirmed furosemide 80 mg tablet 80 mg PO BID 03/25/20 07/20/22 vitamin B complex-vitamin C-folic 1 tablet PO DAILY 03/25/20 07/20/22 acid 0.8 mg tablet (Renal-Yojana) cholecalciferol (vitamin D3) 50 50 mcg PO BID 12/22/20 07/20/22 mcg (2,000 unit) capsule cinnamon bark 500 mg capsule 1,000 mg PO BID 12/22/20 07/20/22 cranberry 500 mg capsule 500 mg PO DAILY 12/22/20 07/20/22 sevelamer carbonate 800 mg tablet 5,600 mg PO TIDWM 12/22/20 07/20/22 fluticasone propionate 50 1 spray intranasal BID 06/16/22 07/20/22 mcg/actuation nasal spray,suspension (Flonase Allergy Relief) loratadine 10 mg tablet (Claritin) 10 mg PO DAILY PRN Congestion 06/16/22 07/20/22 polyethylene glycol 3350 17 gram 17 g PO QAM 06/16/22 07/20/22 oral powder packet (Miralax) Allergies Allergy/AdvReac Type Severity Reaction Status Date / Time azithromycin Allergy Severe Hives / Verified 07/13/22 13:50 Red Face cephalexin Allergy Severe Hives / Verified 07/13/22 13:50 [place] Face Cephalosporins Allergy Severe Hives / Verified 07/13/22 13:50 Red Face hydrocodone Allergy Severe Hives / Verified 07/13/22 13:50 [place] Face Penicillins Allergy Intermediate Hives / Verified 07/13/22 13:50 Red Face tetracycline Allergy Unknown Rash Verified 07/13/22 13:50 aspirin AdvReac Severe Ulcers Verified 07/13/22 13:50 codeine AdvReac Intermediate Hallucinati Verified 07/13/22 13:50 ng diazepam AdvReac Intermediate Confusion Verified 07/13/22 13:50 fentanyl AdvReac Intermediate Nausea Verified 07/13/22 13:50 orphenadrine AdvReac Intermediate Other Verified 07/13/22 13:50 Review of Systems Review of Systems: All systems reviewed & are unremarkable except as noted in HPI and below PMFSH Past Medical History Medical History Anemia of chronic disease Asthma Chronic back pain End-stage renal disease on peritoneal dialysis (06/2016) On transplant list Gastritis Gout Hypertension (1983) Hypothyroidism (acquired) Polycystic kidney disease Seasonal rhinitis Type 2 diabetes mellitus (1995) Vitamin D deficiency Surgical History Surgical History History of appendectomy (01/1980) History of cardiac catheterization History of cholecystectomy (04/1995) History of colonoscopy History of hernia repair History of partial hysterectomy (11/1993) History of tonsillectomy (06/1959) History of tubal ligation (06/1976) History of umbilical hernia repair (06/1979) Family History Family History Mother Family history of diabetes mellitus in first degree relative Polycystic kidney disease Heart disease Hypertension Father Family history of lung cancer Sibling Polycystic kidney disease Sibling Diabetes mellitus Heart disease Other Malignant neoplasm of prostate Social History Social History Social History: Surrogate medical decision maker: Brennon Brad, spouse. Code status: Do not resuscitate. Smoking status: Never smoker Alcohol intake: never Substance use: never Substance use type: does not
[2022-07-13 13:29] LABS: Alanine Aminotransferase 18 U/L (6-35); Albumin Level 3.3 g/dL (3.5-5.1); Alkaline Phosphatase 131 U/L (38-126); Anion Gap 12 mmol/L (8-16); Aspartate Amino Transferase 22 U/L (14-36); Bilirubin,Total 0.7 mg/dL (0.2-1.3); Blood Urea Nitrogen 56 mg/dL (7-17); Calcium 8.9 mg/dL (8.4-10.2); Carbon Dioxide 28 mmol/L (22-30); Chloride 92 mmol/L (98-107); Estimated CRCL calculation 5 ml/min; Estimated Glomerular Filt Rate 4; Glucose 201 mg/dL (65-110); Lipase 119 U/L (23-300); Potassium 3.6 mmol/L (3.4-5.0); Sodium 132 mmol/L (137-145)
[2022-07-13 13:39] LABS: Prothrombin Time 13.2 Seconds (11.1-14.7)
[2022-07-13 13:40] LABS: Partial Thromboplastin Time 31.6 SECONDS (22.3-36.8)
--- NOTE | 2022-07-13 13:40 | PC.NURSE ---
patient off unit to CT.
[2022-07-13] MEDS: ONDANSETRON INJ 4 MG/2 ML VIAL IV PUSH ×2 (14:00→17:07)
[2022-07-13] MEDS: SODIUM CHLORIDE 0.9% IV 500 ML 999 ML IV CONT (14:00)
[2022-07-13 15:11] LABS: Influenza A QL RT-PCR Negative (Negative); Influenza B QL RT-PCR Negative (Negative); RSV RNA, RT-PCR Negative (Negative); SARS-CoV-2 RNA PCR Negative
[2022-07-13 15:48] LABS: Lactic Acid Reflex 1.1 mmol/L (0.7-2.0)
[2022-07-13 16:03] LABS: NT Pro B Type Natriuretic Pept 9430 pg/mL (19.9-100); Troponin I 0.071 ng/mL (0.000-0.034)
--- NOTE | 2022-07-13 17:30 | PM.IMHP ---
H&P: HPI History of Present Illness Date/Time: 07/13/22 17:30 Chief Complaint: Chest pain and shortness a breath. Narrative: This is a pleasant 66-year-old female with polycystic kidney disease on peritoneal dialysis, hypertension, hypothyroidism, diabetes, and GERD who presented to the emergency department via EMS from home for evaluation of chest pain shortness a breath. Patient provides the following history. She was recently hospitalized for several days just couple of weeks ago with right flank pain which was treated as possible acute pyelonephritis though urine culture demonstrated no growth. She has been doing okay at home however over the last few days she has once again started to have some pain in the right side of her abdomen occasionally radiating into the epigastric/low sternal region. She describes a heaviness in that area but reports a sharp pain with palpation in the right side of the abdomen. She has felt a bit short of breath and the right-sided abdominal pain seems to be worse with deep inspiration. She also endorses a mild, nonproductive cough. She has several loose stools a day which is not new for her. She urinates only a small amount and has not had any dysuria. She denies fever, chills, and sweats. She has had nausea but no vomiting. She decided come in today for evaluation as her symptoms were not improving. She was afebrile on arrival with stable vital signs. Labs were significant for a WBC of 16.6, sodium 132, potassium 3.6, BUN 56, creatinine 10.40, lactic acid 1.1, troponin 0.070. EKG showed moderate T-wave abnormalities in the anterolateral and inferior leads though not significantly changed compared to prior tracings obtained last month. Review of Systems Review of Systems: Twelve systems were reviewed and are negative except for as per HPI. [facility], [facility] Past Medical History Medical History Anemia of chronic disease Asthma Chronic back pain Diabetes mellitus (~1995) End-stage renal disease on peritoneal dialysis On transplant list Gastritis GERD (gastroesophageal reflux disease) Gout HTN (hypertension) (~1983) Hypothyroidism (acquired) Nausea and vomiting in adult Peritoneal dialysis status (~06/2016) Polycystic kidney disease Seasonal rhinitis Vitamin D deficiency Surgical History Surgical History H/O colonoscopy (~02/23/15) H/O hernia repair 06/1995, 11/2019 History of partial hysterectomy (~11/1993) History of tonsillectomy (~06/1959) History of tubal ligation (~06/1976) Hx of appendectomy (~01/1980) Hx of cardiac cath Hx of cholecystectomy (~04/1995) Hx of umbilical hernia repair (~06/1979) Family History Family History Mother Family history of diabetes mellitus in first degree relative Polycystic kidney disease Heart disease Hypertension Father Family history of lung cancer Sibling Polycystic kidney disease Sibling Diabetes mellitus Heart disease Other Malignant neoplasm of prostate Social History Social History Social History: Pt does not drink caffeine. 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 She is and lives with her . She said she is in the middle of drawing up her power consumer attorney papers and has not completed them as of yet. She would like for her and son to be the durable power consumer attorney for healthcare. However the patient stated that she would like to be a DNR. We discussed this so that she understands what that meant. The patient stated that if her heart stops she does not want to be resuscitated at all and she does not want to be on a ventilator. The patient does not use any alcohol and she is a lifelong nonsmoker. She has 3 children. Two daughters and a son Smoking status: Never s
--- NOTE | 2022-07-13 18:13 | ADMGEN ---
This patient, Shantelle Salinas, was admitted to IMU Room 210-01 at 1641. Patient/family oriented to hospital policies and general routines including ID bracelet, bed and alarms, visiting hours, pain management, procedures, bathroom and other care routines, personal items, smoking policy, room service/diet, and visiting hours. Information on how to activate the Rapid Response Team has been discussed. Patient/Family are encouraged to report perceived risks to care and to ask questions if they do not understand what they are told or what they should do.
[2022-07-13 19:25] LABS: Troponin I 0.068 ng/mL (0.000-0.034)
[2022-07-13 20:27] LABS: Hepatitis B Surface Antigen Negative (Negative)
[2022-07-13 20:30] LABS: Appearance Peritoneal Fluid Hazy (Clear); Color Peritoneal Fluid Yellow (Colorless); Source Peritoneal Fluid Peritoneal Fluid
[2022-07-13 20:31] LABS: Lymphocytes Peritoneal Fluid 5 %; Mesothelial Cells Peritoneal Fluid 1 %; Monocytes Peritoneal Fluid 81 %; Neutrophils Peritoneal Fluid 13 % (0-25); Nucleated Cells Peritoneal Flu 132 /uL (0-500); RBC Peritoneal Fluid 546 /uL (0-100000)
[2022-07-13 20:49] LABS: Hepatitis B Surface Anti Res Positive
[2022-07-14] VITALS (17 sets, daily range): BP systolic 95–114; BP diastolic 38–53; PULSE 73–106; RESP 16–20; TEMP 35.7–36.6; O2SAT 97–100; BMI 25.5
[2022-07-14] MEDS: AZTREONAM 2 GM in SODIUM CHLORIDE 0.9% IV 100 ML 200 ML IVPB (01:12)
[2022-07-14] MEDS: LEVOTHYROXINE SODIUM 12.5 MCG TABLET PO (05:30)
--- NOTE | 2022-07-14 08:31 | PM.IMPN ---
Progress Note: A&P Assessment and Plan (1) Chest pain: Code(s): R07.9 - Chest pain, unspecified Status: Acute Assessment and Plan: Appreciate cardiology consultation, they suspect it is noncardiac in etiology (2) Elevated troponin: Code(s): R77.8 - Other specified abnormalities of plasma proteins Status: Acute Assessment and Plan: likely 2/2 kidney failure (3) End-stage renal disease on peritoneal dialysis: Code(s): N18.6 - End stage renal disease; Z99.2 - Dependence on renal dialysis Status: Chronic Assessment and Plan: appreciate nephrology consult, cont PD (4) Right sided abdominal pain: Code(s): R10.9 - Unspecified abdominal pain Status: Acute Assessment and Plan: unsure of etiology, CT abd/pelvis non acute complete workup by GI in the past has shown nothing (5) Pressure sore: Code(s): L89.90 - Pressure ulcer of unspecified site, unspecified stage Status: Acute Assessment and Plan: consult wound care Plan DVT prophylaxis with SCDs GI prophylaxis with PPI Code status full code Subjective Date/time seen: 07/14/22 08:31 Review of Systems Review of Systems: 12 point review of systems was assessed and was negative except as noted in the HPI Exam Narrative: General: No acute distress, alert and oriented per baseline HEENT: Atraumatic, normocephalic, mucous membranes moist CV: Regular rate and rhythm, S1, S2 Lungs: Clear to auscultation bilaterally, no rales or crackles noted, no wheezes, good air entry Abdomen: Soft, nontender, nondistended Extremities: Normal to inspection Skin: No rashes noted, no lesions or wounds seen Psych: Euthymic, normal affect Objective Data Vital Signs Vital Signs: Vital Signs - 24 hr 07/13/22 12:20 07/13/22 12:38 07/13/22 12:38 Temperature 97.5 F L Pulse Rate 103 H 104 H Respiratory Rate 18 Blood Pressure 121/66 Pulse Oximetry 100 Oxygen Delivery Room Air Room Air 07/13/22 12:25 07/13/22 12:26 07/13/22 12:30 Temperature Pulse Rate 105 H 104 H 105 H Respiratory Rate 16 16 15 Blood Pressure 128/74 Pulse Oximetry Oxygen Delivery 07/13/22 12:31 07/13/22 12:45 07/13/22 13:00 Temperature Pulse Rate 104 H 102 H 101 H Respiratory Rate 18 14 16 Blood Pressure 121/66 Pulse Oximetry 98 100 Oxygen Delivery 07/13/22 13:03 07/13/22 13:04 07/13/22 13:19 Temperature Pulse Rate 101 H 102 H 104 H Respiratory Rate 16 16 17 Blood Pressure 114/59 L Pulse Oximetry 100 100 Oxygen Delivery 07/13/22 13:30 07/13/22 13:59 07/13/22 14:00 Temperature Pulse Rate 98 97 94 Respiratory Rate 15 15 14 Blood Pressure 118/46 L Pulse Oximetry 100 100 100 Oxygen Delivery 07/13/22 14:02 07/13/22 14:15 07/13/22 14:16 Temperature Pulse Rate 96 90 90 Respiratory Rate 14 16 14 Blood Pressure 126/63 Pulse Oximetry 100 98 100 Oxygen Delivery 07/13/22 14:30 07/13/22 14:31 07/13/22 14:45 Temperature Pulse Rate 95 94 89 Respiratory Rate 13 13 13 Blood Pressure 125/51 L Pulse Oximetry 100 97 Oxygen Delivery 07/13/22 15:00 07/13/22 15:15 07/13/22 15:30 Temperature Pulse Rate 94 99 95 Respiratory Rate 17 17 17 Blood Pressure Pulse Oximetry 99 100 100 Oxygen Delivery 07/13/22 15:45 07/13/22 17:00 07/13/22 18:00 Temperature 97.8 F Pulse Rate 106 H 103 H 87 Respiratory Rate 18 20 Blood Pressure 125/66 Pulse Oximetry 99 Oxygen Delivery 07/13/22 17:00 07/13/22 18:46 07/13/22 20:00 Temperature 97.8 F 97.0 F L Pulse Rate 103 H 93 Respiratory Rate 20 18 Blood Pressure 125/66 102/47 L Pulse Oximetry 98 Oxygen Delivery Room Air Room Air 07/13/22 20:00 07/13/22 20:00 07/13/22 22:00 Temperature Pulse Rate 89 89 90 Respiratory Rate 18 Blood Pressure Pulse Oximetry 98 Oxygen Delivery Room Air 07/13/22 23:37 07/14/22 00:00 07/14/22 00:00
[2022-07-14] MEDS: VITAMIN B CMPLX/VIT C/FOLIC AC 1 CAPSULE 1 CAP PO (08:39)
[2022-07-14] MEDS: CHOLECALCIFEROL 1,000 UNITS TABLET 2000 UNITS PO ×2 (08:39→17:37)
[2022-07-14] MEDS: FUROSEMIDE 80 MG TABLET PO ×2 (08:39→17:37)
[2022-07-14] MEDS: allopurinoL 150 MG TABLET PO (08:39)
[2022-07-14] MEDS: SEVELAMER CARBONATE 800 MG TABLET 5600 MG PO ×2 (08:40→17:41)
[2022-07-14] MEDS: LIDOCAINE 5% PATCH 2 PATCH TOPICAL (08:40)
[2022-07-14] MEDS: PANTOPRAZOLE 40 MG TABLET PO (08:41)
[2022-07-14] MEDS: PIOGLITAZONE HCL 30 MG TABLET PO (08:41)
[2022-07-14] MEDS: lisinopriL 5 MG TABLET PO (08:41)
--- NOTE | 2022-07-14 09:59 | PM.CNCAR ---
Assessment and Plan Assessment and plan (1) Chest pain: Code(s): R07.9 - Chest pain, unspecified Status: Acute Assessment and Plan: Atypical chest pain, reproducible worse with deep breathing, coughing would also ambulation. EKG with T-wave abnormality changes possible ischemia but with mild elevation troponin with a flat for not consistent with acute coronary syndrome and/or plaque rupture. Signs is most likely noncardiac with evidence of reproducible musculoskeletal pain, however, she has multiple risk factors for underlying CAD including end-stage renal disease, hypertension, diabetes mellitus. 2D echocardiogram to assess wall motion abnormality not reveal clear issues with preserved LV systolic function. NPO after midnight for Lexiscan nuclear perfusion stress test to assess for myocardial ischemia. Additional workup and management per primary service as well. Further recommendations to follow. All questions answered to patient's satisfaction. She verbalized understanding and agreed with plan of care. (2) Elevated troponin: Code(s): R77.8 - Other specified abnormalities of plasma proteins Status: Acute Assessment and Plan: As above, mild elevation with flat curve most likely type 2 infarction in setting of end-stage renal disease no clear evidence of acute coronary syndrome and/or plaque rupture. Nonetheless, given risk factors, abnormal ECG will pursue Lexiscan nuclear stress test in a.m.. NPO after midnight. (3) Right sided abdominal pain: Code(s): R10.9 - Unspecified abdominal pain Status: Acute Assessment and Plan: As above, further workup underway. Clinical picture not consistent with peritonitis but again she is at risk given peritoneal dialysis as well. Correlate with leukocytosis. Further workup in this regard per primary service and Nephrology. (4) End stage renal disease: Code(s): N18.6 - End stage renal disease Status: Chronic Assessment and Plan: Continue peritoneal dialysis per Nephrology. (5) HTN (hypertension): Onset Date: ~1983 Qualifiers: Hypertension type: essential hypertension Qualified Code(s): I10 - Essential (primary) hypertension Code(s): I10 - Essential (primary) hypertension Status: Chronic Assessment and Plan: Reasonably controlled. Continue current medical management with lisinopril 5 mg daily, Lasix 80 mg twice daily. (6) Diabetes mellitus: Onset Date: ~1995 Qualifiers: Diabetes mellitus type: type 2 Diabetes mellitus nursing home insulin use: without termite control technician use Diabetes mellitus complication status: without complication Qualified Code(s): E11.9 - Type 2 diabetes mellitus without complications Code(s): E11.9 - Type 2 diabetes mellitus without complications Status: Chronic Assessment and Plan: Continue medical management as appropriate how blood his own (7) Anemia of chronic disease: Code(s): D63.8 - Anemia in other chronic diseases classified elsewhere Status: Chronic Assessment and Plan: Stable. No evidence for active bleed. History of anemia chronic disease most likely secondary to chronic end-stage renal disease. History of Present Illness History of Present Illness Consult date/time: Date of service: 07/14/22 09:59 Requesting physician: Kanchan Ferreira PA-C Consult reason: chest pain and Other (Elevated troponin) Reason For Visit: chest pain Narrative: Patient is a pleasant 66-year-old female with a past medical history significant for polycystic kidney disease on peritoneal dialysis for the past 5 years, hypertension, hypothyroidism, type 2 diabetes mellitus who presented emergency department for complaints of shortness of breath chest pain. Patient notes for the past week she has noted increasing right-sided abdominal pain upper epigastric low chest pain described as a sharp and heavy indigestion like
--- NOTE | 2022-07-14 10:05 | ECHO_ITS ---
Patient Info Name: Shantelle Salinas Age: 66 years : 1955 Gender: Female Ht: 63 in Wt: 144 lbs BSA: 1.72 m2 HR: 81 bpm BP: 109 / 39 mmHg Heart Rhythm: Sinus Rhythm Exam Date: 07/14/2022 11:27 AM Exam Location: [facility] Pulmonary Patient Status: Outpatient Admit Date: 07/13/2022 Staff Ordering Physician: Polo Garcia MD Equipment Service Engineer: Tc Mir RDCS, RT Attending Provider: Jordan Juárez MD Referring Physician: Radha MULLEN; Exam Type: CA echo doppler color flow Study Info Indications R07.9 - Chest pain, unspecified - CVA Complete two-dimensional, color flow and Doppler transthoracic echocardiogram is performed. Strain analysis performed. Summary 1. Complete two-dimensional, color flow and Doppler transthoracic echocardiogram is performed. 2. Left ventricular chamber dimension is normal. 3. Left ventricular systolic function is normal, estimated at 60-65%. 4. There is mildly increased left ventricular wall thickness. 5. Left ventricular septal wall motion is abnormal with septal motion related to bundle branch block. 6. The left ventricular diastolic function is grade I diastolic dysfunction. 7. Global longitudinal strain is normal at -18 %. 8. There is mild mitral valve regurgitation. Left Ventricle Left ventricular chamber dimension is normal. Left ventricular systolic function is normal, estimated at 60-65%. There is mildly increased left ventricular wall thickness. Left ventricular septal wall motion is abnormal with septal motion related to bundle branch block. The left ventricular diastolic function is grade I diastolic dysfunction. Global longitudinal strain is normal at -18 %. Right Ventricle Right ventricular chamber dimension is normal. Right ventricular systolic function is normal. Left Atria Left atrial chamber dimension is normal. Right Atria Right atrial chamber dimension is normal. Aortic Valve The aortic valve is trileaflet. There is mild aortic valve sclerosis. There is no aortic valve stenosis. There is no aortic valve regurgitation. Pulmonic Valve The pulmonic valve is not well visualized. Mitral Valve The mitral valve has normal leaflets. There is mild mitral valve regurgitation. The mitral valve annulus is mildly calcified. Tricuspid Valve The tricuspid valve leaflets are normal. There is trace tricuspid valve regurgitation. Unable to estimate PA systolic pressure due to poor spectral resolution of tricuspid regurgitant jet velocity. Pericardium/Pleural The pericardium appears normal. There is no pericardial effusion. Inferior Vena Cava Normal inferior vena cava with >50% collapse upon inspiration consistent with normal right atrial pressure, 5 mmHg. Aorta The aortic root size at the sinus of Valsalva is normal. There is mild aortic atherosclerosis. Left Ventricular Outflow Tract Name Value Normal LVOT 2D LVOT Diameter 2.0 cm LVOT Doppler LVOT Peak Gradient 5 mmHg LVOT Mean Gradient 2 mmHg LVOT VTI 21 cm LVOT
--- NOTE | 2022-07-14 13:18 | PM.CNNEP ---
Assessment and Plan Assessment and plan (1) End stage renal disease: Code(s): N18.6 - End stage renal disease Status: Chronic Assessment and Plan: continue nightly CCPD follow electrolytes, volume status, and clearance (2) Chest pain: Code(s): R07.9 - Chest pain, unspecified Status: Acute Assessment and Plan: Cardiology recommendations noted Stress test tomorrow (3) Right sided abdominal pain: Code(s): R10.9 - Unspecified abdominal pain Status: Acute Assessment and Plan: etiology not clear imaging results noted with no specific correlation PD fluid results noted -- on empiric antibiotics follow symptoms (4) HTN (hypertension): Onset Date: ~1983 Qualifiers: Hypertension type: essential hypertension Qualified Code(s): I10 - Essential (primary) hypertension Code(s): I10 - Essential (primary) hypertension Status: Chronic Assessment and Plan: reasonable control follow trend of hemodynamics (5) Anemia: Code(s): D64.9 - Anemia, unspecified Status: Chronic Assessment and Plan: due to ESRD holding Epogen since Hgb in range follow trend of H/H (6) Diabetes mellitus: Onset Date: ~1995 Qualifiers: Diabetes mellitus type: type 2 Diabetes mellitus 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 History of Present Illness Reason for Consult Consult date: 07/14/22 Reason for consult: end stage renal disease Chief Complaint Chief complaint: chest pain History of Present Illness Narrative: The patient is a 66-year-old female with a past medical history as outlined below who Pred to [facility] Emergency room via EMS from her outpatient dialysis clinic for further evaluation of chest pain and shortness of breath. The patient was at her outpatient dialysis unit for labs to be drawn in anticipation of her monthly peritoneal dialysis clinic visit. She was just recently discharged from [facility] after being treated for a suspected episode of acute pyelonephritis complicated by her known history of polycystic kidney disease. She received broad-spectrum IV antibiotic therapy although her urine culture never actually grew any organisms. However, from my discussion with the patient as well as her at bedside, she really did not feel all that much better even by the time of discharge. Since she has been at home, she has noticed that she has had persistent right-sided abdominal pain with radiation to the epigastric/ sternal area. She also describes a chest heaviness in that area along with sharp pains with palpations in the right side of her abdomen. She also reports some shortness of breath as well as dizziness /lightheadedness. She reports no fevers, chills, nausea, vomiting, or diarrhea. She reported these symptoms to the PD nurse when she was present for her lab draw and given the persistence of the symptoms during the clinic visit and her known complex medical history as nor any noted, EMS was called and she was subsequently transferred to the ER for further assessment. Workup and evaluation emergency room demonstrated the patient to be hemodynamically stable. Routine blood tests were drawn which included an elevated white blood cell count of 16.6 and labs consistent with her known history of end-stage renal disease. Her EKG did not show any significant changes in comparison to her previous 1 on her last hospital stay. She subsequently underwent a CT scan of the chest, abdomen, and pelvis with IV contrast with no evidence of a pulmonary embolism o
[2022-07-14 14:44] LABS: Basophils Absolute Auto 0.1 K/mm3 (0.0-0.1); Basophils Percent Auto 0.5 % (0.2-1.2); Eosinophils Absolute Auto 0.1 K/mm3 (0-0.3); Eosinophils Percent Auto 0.8 % (0-4.4); Hematocrit 29.5 % (37.0-47.0); Hemoglobin 9.1 g/dL (12.0-15.0); Immature Granulocyte Absolute 0.12 K/mm3 (0.00-0.031); Immature Granulocyte Percent A 0.8 % (0-0.5); Lymphocytes Absolute Auto 1.36 K/mm3 (0.9-3.2); Lymphocytes Percent Auto 9.2 % (18.3-44.2); Mean Corpuscular HGB Conc 30.8 g/dl (32-36); Mean Corpuscular Hemoglobin 30.2 pg (26-34); Mean Platelet Volume 10.1 fl (7.4-10.4); Monocytes Absolute Auto 1.4 K/mm3 (0.1-0.6); Monocytes Percent Auto 9.3 % (2.6-8.5); Neutrophils Absolute Auto 11.8 K/mm3 (1.3-6.7); Neutrophils Percent Auto 79.4 % (45.5-73.1); Platelet Count Result 299 k/mm3 (150-375); Red Blood Count 3.01 M/mm3 (4.2-5.4); Red Cell Distribution Width 14.5 % (11.5-14.5); White Blood Count 14.8 K/mm3 (4.5-10.0)
[2022-07-14 14:59] LABS: Alanine Aminotransferase 15 U/L (6-35); Albumin Level 2.6 g/dL (3.5-5.1); Alkaline Phosphatase 104 U/L (38-126); Anion Gap 11 mmol/L (8-16); Aspartate Amino Transferase 17 U/L (14-36); Bilirubin,Total 0.5 mg/dL (0.2-1.3); Blood Urea Nitrogen 51 mg/dL (7-17); Carbon Dioxide 27 mmol/L (22-30); Chloride 91 mmol/L (98-107); Estimated CRCL calculation 4 ml/min; Estimated Glomerular Filt Rate 4; Glucose 175 mg/dL (65-110); Potassium 3.6 mmol/L (3.4-5.0); Sodium 129 mmol/L (137-145)
[2022-07-14] MEDS: PROCHLORPERAZINE EDISYLATE 10 MG/2 ML VIAL IV PUSH (15:26)
[2022-07-14] MEDS: fentaNYL CITRATE INJ (*CRX) 100 MCG/2 ML VIAL 12.5 MCG IV PUSH (15:27)
[2022-07-15] VITALS (16 sets, daily range): BP systolic 90–127; BP diastolic 42–82; PULSE 56–131; RESP 14–20; TEMP 36.1–36.6; O2SAT 95–100
--- NOTE | 2022-07-15 | EST_ITS ---
Patient Info Name: Shantelle Salinas Age: 66 years : 1955 Gender: Female Ht: 63 in Wt: 144 lbs BSA: 1.72 m2 HR: 99 bpm BP: 130 / 60 mmHg Heart Rhythm: Sinus Arrhythmia Exam Date: 07/15/2022 11:58 AM Exam Location: [facility] Stress Patient Status: Outpatient Admit Date: 07/13/2022 Staff Ordering Physician: Polo Garcia MD Attending Provider: Jordan Juárez MD Exercise Technologist: Oralia Moya, JIMENEZ Nurse: kell raman Exam Type: CA stress tressa w NM Study Info Indications - elevated troponin R07.9 - Chest pain, unspecified A regadenoson stress test was performed. Summary 1. Normal sinus rhythm. 2. Resting ST/T wave changes. 3. No changes after Lexiscan injection. 4. Occasional PVCs. 5. Myocardial perfusion results to be reported by radiology. Protocol: Lexiscan Stress ECG Details Stage: REST Duration (min): 0 min : 58 sec HR (bpm): 100 SBP (mmHg): 130 DBP (mmHg): 60 Stage: REST Duration (min): 12 min : 49 sec HR (bpm): 93 SBP (mmHg): 130 DBP (mmHg): 60 Stage: STAGE 1 Duration (min): 1 min : 0 sec HR (bpm): 108 SBP (mmHg): 130 DBP (mmHg): 65 Stage: RECOVERY Duration (min): 1 min : 0 sec HR (bpm): 109 SBP (mmHg): 130 DBP (mmHg): 65 Stage: RECOVERY Duration (min): 2 min : 0 sec HR (bpm): 110 SBP (mmHg): 130 DBP (mmHg): 65 Stage: RECOVERY Duration (min): 3 min : 0 sec HR (bpm): 109 SBP (mmHg): 111 DBP (mmHg): 63 Stage: RECOVERY Duration (min): 3 min : 4 sec HR (bpm): 109 SBP (mmHg): 111 DBP (mmHg): 63 Rest HR: 93 bpm Peak HR: 111 bpm Rest Sys BP: 130 mmHg Peak Sys BP: 130 mmHg Max Pred HR: 154 bpm % Max Pred HR: 72 % Target HR: 131 bpm Max RPP: 14,430 bpm*mmHg Termination Reason: Completed protocol Cardiac Symptoms: Shortness of breath Total Time: 1 min : 0 sec Rest Ellison BP: 60 mmHg Peak Ellison BP: 65 mmHg Total Dose: 0.4 mg Resting ECG Normal sinus rhythm. Resting ST/T wave changes. Stress ECG No changes after Lexiscan injection. Arrhythmias Occasional PVCs. Report Signatures
[2022-07-15] MEDS: fentaNYL CITRATE INJ (*CRX) 100 MCG/2 ML VIAL 12.5 MCG IV PUSH ×3 (03:04→18:27)
[2022-07-15 04:56] LABS: Cholesterol 151 mg/dL (0-200); HDL Direct 29 mg/dL; Triglycerides 178 mg/dL (<150)
[2022-07-15 04:58] LABS: Alanine Aminotransferase 14 U/L (6-35); Albumin Level 2.8 g/dL (3.5-5.1); Alkaline Phosphatase 111 U/L (38-126); Anion Gap 9 mmol/L (8-16); Aspartate Amino Transferase 18 U/L (14-36); Bilirubin,Total 0.4 mg/dL (0.2-1.3); Blood Urea Nitrogen 44 mg/dL (7-17); Calcium 8.2 mg/dL (8.4-10.2); Carbon Dioxide 28 mmol/L (22-30); Chloride 93 mmol/L (98-107); Estimated CRCL calculation 5 ml/min; Estimated Glomerular Filt Rate 4; Glucose 156 mg/dL (65-110); Potassium 3.4 mmol/L (3.4-5.0); Sodium 130 mmol/L (137-145)
[2022-07-15 05:07] LABS: Basophils Absolute Auto 0.1 K/mm3 (0.0-0.1); Basophils Percent Auto 0.8 % (0.2-1.2); Eosinophils Absolute Auto 0.2 K/mm3 (0-0.3); Hematocrit 30.5 % (37.0-47.0); Hemoglobin 9.5 g/dL (12.0-15.0); Immature Granulocyte Absolute 0.18 K/mm3 (0.00-0.031); Immature Granulocyte Percent A 1.1 % (0-0.5); LDL Cholesterol Direct 72 mg/dL; Lymphocytes Absolute Auto 1.58 K/mm3 (0.9-3.2); Lymphocytes Percent Auto 9.6 % (18.3-44.2); Mean Corpuscular HGB Conc 31.1 g/dl (32-36); Mean Corpuscular Hemoglobin 31.5 pg (26-34); Mean Platelet Volume 10.2 fl (7.4-10.4); Monocytes Absolute Auto 1.5 K/mm3 (0.1-0.6); Monocytes Percent Auto 9.3 % (2.6-8.5); Neutrophils Percent Auto 78.2 % (45.5-73.1); Platelet Count Result 326 k/mm3 (150-375); Red Blood Count 3.02 M/mm3 (4.2-5.4); Red Cell Distribution Width 14.5 % (11.5-14.5); White Blood Count 16.5 K/mm3 (4.5-10.0)
[2022-07-15] MEDS: LEVOTHYROXINE SODIUM 12.5 MCG TABLET PO (06:21)
[2022-07-15] MEDS: SEVELAMER CARBONATE 800 MG TABLET 5600 MG PO ×3 (10:10→16:54)
[2022-07-15] MEDS: PANTOPRAZOLE 40 MG TABLET PO (10:19)
[2022-07-15] MEDS: VITAMIN B CMPLX/VIT C/FOLIC AC 1 CAPSULE 1 CAP PO (10:22)
[2022-07-15] MEDS: allopurinoL 150 MG TABLET PO (10:23)
[2022-07-15] MEDS: PIOGLITAZONE HCL 30 MG TABLET PO (10:24)
[2022-07-15] MEDS: CHOLECALCIFEROL 1,000 UNITS TABLET 2000 UNITS PO ×2 (10:25→16:54)
[2022-07-15] MEDS: FLUTICASONE PROPIONATE 0.05% NA SPR 16 GM BTL (*BKC) 1 SPRAY NASAL ×2 (10:26→16:54)
--- NOTE | 2022-07-15 10:50 | PM.PNNEP ---
Progress Note: A&P Assessment and Plan (1) End stage renal disease: Code(s): N18.6 - End stage renal disease Status: Chronic Assessment and Plan: continue nightly CCPD follow electrolytes, volume status, and clearance (2) Chest pain: Code(s): R07.9 - Chest pain, unspecified Status: Acute Assessment and Plan: Cardiology recommendations noted stress test today (3) Right sided abdominal pain: Code(s): R10.9 - Unspecified abdominal pain Status: Acute Assessment and Plan: etiology not clear imaging results noted with no specific correlation PD fluid results noted -- on empiric antibiotics follow symptoms (4) HTN (hypertension): Onset Date: ~1983 Qualifiers: Hypertension type: essential hypertension Qualified Code(s): I10 - Essential (primary) hypertension Code(s): I10 - Essential (primary) hypertension Status: Chronic Assessment and Plan: reasonable control follow trend of hemodynamics (5) Anemia: Code(s): D64.9 - Anemia, unspecified Status: Chronic Assessment and Plan: due to ESRD holding Epogen since Hgb in range follow trend of H/H (6) Diabetes mellitus: Onset Date: ~1995 Qualifiers: Diabetes mellitus type: type 2 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 Subjective Date/time seen: 07/15/22 10:44 Tolerated peritoneal dialysis treatment overnight without any issues or problems; states she feels a bit better today; at bedside and agrees she looks better and states that her mentation is better -- he states she seemed a bit confused when she was discharged on her last hospitalization; stress test done earlier today. Exam Narrative: General: WD/WN female in NAD Heart: normal S1 and S2; no rub Lungs: clear anteriorly Abdomen: soft, nontender, nondistended, positive bowel sounds Extremities: no edema Skin: warm and dry Objective Data Vital Signs Vital Signs: Vital Signs Temp Pulse Resp BP Pulse Ox O2 Del Method 07/15/22 08:56 131 H 07/15/22 07:47 97.8 F 82 15 99/44 L 99 07/15/22 06:00 105 H 07/15/22 04:00 97.7 F 90 18 96/56 L 100 07/15/22 04:00 96 14 100 Room Air 07/15/22 04:00 96 07/15/22 00:00 92 14 100 Room Air 07/15/22 00:00 92 07/15/22 00:00 97.3 F L 56 L 14 108/51 L 100 07/14/22 22:00 88 07/14/22 20:00 95 18 100 Room Air 07/14/22 20:00 95 07/14/22 20:00 97.4 F L 91 18 95/48 L 100 07/14/22 18:00 98 07/14/22 16:00 86 07/14/22 14:00 92 07/14/22 16:08 96.3 F L 83 20 104/49 L 97 07/14/22 15:19 96.5 F L 96 20 110/38 L Room Air 07/14/22 11:41 96.5 F L 78 20 110/38 L 100 07/14/22 12:00 96 Intake/Output Intake/Output: Intake & Output 07/12/22 07/13/22 07/14/22 07/15/22 23:59 23:59 23:59 23:59 Intake Total 700 1330 790 Output Total 0 -33 400 Balance 700 1363 390 Meds/Results Medications: Active Medications Generic Name Dose Route Start Last Admin Trade Name Freq PRN Reason Stop Dose Admin Allopurinol 150 mg 07/14/22 08:00 07/15/22 10:23 Allopurinol 150 Mg Tablet PO 150 mg DAILY@0800 CONSTANZA Administration Cyclobenzaprine HCl 10 mg 07/13/22 23:39 Cyclobenzaprine Hcl 10 Mg Tablet PO DAILY PRN muscle spasm Fentanyl Citrate 12.5 mcg 07/14/22 14:00 07/15/22 03:04 Fentanyl Citrate Inj (*Crx) 100 Mcg/2 Ml Vial IV PUSH 12.5 mcg Q4H PRN Administration Pain Rated 7-10 Fluticasone Propionate 1
[2022-07-15 10:59] LABS: Ammonia < 9 umol/L (9-30)
[2022-07-15 11:02] LABS: CRP 6.2 mg/dL (<1.0)
[2022-07-15 11:16] LABS: Erythrocyte Sedimentation Rate 92 mm/hr (0-20)
[2022-07-15 11:18] LABS: Iron 49 ug/dL (37-170)
[2022-07-15 11:31] LABS: Percent Iron Saturation 34 % (20-50)
[2022-07-15 11:50] LABS: Hepatitis B Surface Antigen Negative (Negative)
[2022-07-15 11:51] LABS: Hepatitis B Surface Antigen Negative (Negative)
[2022-07-15 11:55] LABS: Hepatitis B Core IgM Result Negative (Negative)
[2022-07-15 11:57] LABS: HAV RESULT Negative (Negative); Hepatitis B Core IgM Result Negative (Negative)
[2022-07-15 12:08] LABS: Folic Acid > 20.0 ng/mL (2.76->20); Hepatitis B Surface Anti Res Positive; Vitamin B12 > 1000.0 pg/mL (239-931)
[2022-07-15 12:09] LABS: Hepatitis C Virus Antibody Negative (Negative)
--- NOTE | 2022-07-15 13:32 | PM.PNCARD ---
Progress Note: A&P Assessment and Plan (1) Chest pain: Code(s): R07.9 - Chest pain, unspecified Status: Acute Assessment and Plan: Atypical chest pain, reproducible worse with deep breathing, coughing would also ambulation. EKG with T-wave abnormality changes possible ischemia but with mild elevation troponin with a flat for not consistent with acute coronary syndrome and/or plaque rupture. Lexiscan negative for any ischemia or infarct, EF 65% Likely musculoskeletal in etiology Cardiology will sign off (2) Elevated troponin: Code(s): R77.8 - Other specified abnormalities of plasma proteins Status: Acute Assessment and Plan: As above, mild elevation with flat curve most likely type 2 infarction in setting of end-stage renal disease no clear evidence of acute coronary syndrome and/or plaque rupture. Negative lexiscan stress test (3) Right sided abdominal pain: Code(s): R10.9 - Unspecified abdominal pain Status: Acute Assessment and Plan: GI consult (4) End stage renal disease: Code(s): N18.6 - End stage renal disease Status: Chronic Assessment and Plan: Continue peritoneal dialysis per Nephrology. (5) HTN (hypertension): Onset Date: ~1983 Qualifiers: Hypertension type: essential hypertension Qualified Code(s): I10 - Essential (primary) hypertension Code(s): I10 - Essential (primary) hypertension Status: Chronic Assessment and Plan: Reasonably controlled. Continue current medical management with lisinopril 5 mg daily, Lasix 80 mg twice daily. 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 No evidence for active bleed. History of anemia chronic disease most likely secondary to chronic end-stage renal disease. Subjective Date/time seen: 07/15/22 13:32 Cardiology follow up for chest pain Feeling well today not having any chest pain at this time. No complaints aside from feeling fatigued. Review of Systems Review of Systems: All systems reviewed & are unremarkable except as noted in HPI and below Constitutional: Constitutional: Reports as per HPI and Reports no additional constitutional complaints Eyes: Eyes: Reports as per HPI and Reports no additional eye complaints ENT: Reports system reviewed and no additional complaints, except as documented and Reports as per HPI Cardiovascular: Cardiovascular: Reports as per HPI and Reports no additional cardiovascular complaints Respiratory: Respiratory: Reports as per HPI and Reports no additional respiratory complaints Gastrointestinal: Gastrointestinal: Reports as per HPI and Reports no additional gastrointestinal complaints Genitourinary: Genitourinary: Reports as per HPI Musculoskeletal: Musculoskeletal: Reports no additional musculoskeletal complaints and Reports as per HPI Integumentary/Breasts: Skin/Breast: Reports system reviewed and no additional complaints, except as docu and Reports as per HPI Neurologic: Reports system reviewed and no additional complaints, except as documented and Reports as per HPI Psychiatric: Psychiatric: Reports no additional psychiatric complaints and Reports as per HPI Endocrine: Endocrine: Reports no additional endocrine complaints and Reports as per HPI Hematologic/Lymphatic: Hematologic/Lymphatic: Reports no additiona
--- NOTE | 2022-07-15 13:33 | PCNFU ---
Nutrition Follow-Up Complete: Unintentional weight loss as evidenced by pt report upon last admission. Goal: PO intake 75% of meals and supplements - Goal being met Pt current nutrition is Renal diet with Nepro BID for additional 425 kcals and 19 g protein each. Nutrition recommendation: Add John BID to for 90 kcals and 2.5 g protein with glutamine and collagen to promote wound healing Last recorded weight is 68.3 kg. Bowel Motility: +1 BM Labs Reviewed: Hgb 9.5, Hct 30.5, Alb 2.8, Na 130, BUN 44, Cre 9.0 Meds Noted: Lasix, Zofran, Protonix, actos Skin: New pressure ulcer: Stage II to BL buttocks Additional Notes: Notified for new pressure ulcer to BL buttocks. Pt sitting up eating lunch. Intakes are good. Adding John to promote wound healing. Monitor intake, wt, labs. Follow up in 7 days.
[2022-07-15] MEDS: AZTREONAM 2 GM in SODIUM CHLORIDE 0.9% IV 100 ML 200 ML IVPB (13:36)
[2022-07-15] MEDS: FUROSEMIDE 80 MG TABLET PO ×2 (13:36→16:54)
--- NOTE | 2022-07-15 15:56 | WPDGICN ---
Assessment and Plan Assessment and plan (1) Right flank pain: Code(s): R10.9 - Unspecified abdominal pain Status: Acute Assessment and Plan: Patient complains of ongoing right flank pain. This appears to be related to her kidney. Imaging studies revealed that she has had cysts in this kidney previous admission it was felt she had bleeding into a cyst. Patient also has an active urinary tract infection and pyelonephritis was considered. Suggest continued Nephrology in Urology follow-up on this. (2) Polycystic kidney disease: Code(s): Q61.3 - Polycystic kidney, unspecified Status: Acute Assessment and Plan: Polycystic kidney disease with end-stage renal disease subsequently. Patient currently receives peritoneal dialysis. This condition also is known to correlate with liver cysts which are known on imaging. Typically liver function is preserved. Would not expected to cause pain the liver. She indeed she has no pain over the liver. No other object on no pain at this time. Liver function tests are normal. Suggest following this at present. It is noted that her hepatitis B surface antibody is positive suggesting previous exposure in immunity. No evidence for active liver disease at this time. (3) UTI (urinary tract infection): Code(s): N39.0 - Urinary tract infection, site not specified Status: Acute (4) End stage renal disease: Code(s): N18.6 - End stage renal disease Status: Chronic GI Consult Note Consult date/time: 07/15/22 15:56 Reason for consult: Right flank pain, hepatitis-B surface antibody positive HPI: Shantelle Salinas is a 66 year old female I am asked to see at the request of the hospitalist service because her hepatitis B surface antibody is positive. Also because she has abdominal pain . Patient reports she has chronic ongoing right flank pain. She denies abdominal pain. Patient seen by my service 1 month ago with similar complaints. At that time it was determined she had right flank pain either from pyelonephritis or bleeding into a kidney cyst. Patient is known to have polycystic kidney disease with end-stage renal disease. Currently on peritoneal dialysis. She is hopeful some day to get a kidney transplant. She is known to have hepatitis B surface antibody positive. Suggesting she previously had exposure to hepatitis and developed immunity. Her LFTs have remained normal. Patient states she continues to hurt right flank. Currently admitted the hospital with urinary tract infection. Ultrasound scanning does confirm liver cyst as well as kidney cysts which are known to be consistent with polycystic kidney disease. Family history noncontributory. Review of Systems Review of Systems: Review of systems noncontributory. [facility] Past Medical History Medical History Anemia of chronic disease Asthma Chronic back pain Diabetes mellitus (~1995) End-stage renal disease on peritoneal dialysis On transplant list Gastritis GERD (gastroesophageal reflux disease) Gout HTN (hypertension) (~1983) Hypothyroidism (acquired) Nausea and vomiting in adult Peritoneal dialysis status (~06/2016) Polycystic kidney disease Seasonal rhinitis Vitamin D deficiency Surgical History Surgical History H/O colonoscopy (~02/23/15) H/O hernia repair 06/1995, 11/2019 History of partial hysterectomy (~11/1993) History of tonsillectomy (~06/1959) History of tubal ligation (~06/1976) Hx of appendectomy (~01/1980) Hx of cardiac cath Hx of cholecystectomy (~04/1995) Hx of umbilical hernia repair (~06/1979) Family History Family History Mother Family history of diabetes mellitus in first degree relative Polycystic kidney disease Heart disease Hypertension Father Family history of lung
--- NOTE | 2022-07-15 17:07 | WPDURCON ---
Assessment and Plan Assessment and plan (1) Right flank pain: Code(s): R10.9 - Unspecified abdominal pain Status: Acute Assessment and Plan: Urine culture negative. CT shows stability in renal disease. Dr. Guerra and I reviewed her imaging, there is no obstruction or surgical intervention needed or causing her pain at this time. No further evaluation needed. (2) Polycystic kidney disease: Code(s): Q61.3 - Polycystic kidney, unspecified Status: Acute (3) End stage renal disease: Code(s): N18.6 - End stage renal disease Status: Chronic Urology Consult Note HPI Date Seen: 07/15/22 Time Seen: 13:30 Requesting Physician: Jordan Juárez MD Primary Care Provider: Addis Peña MD Consult Narrative Reason for consult: Right Flank Pain Narrative: Shantelle Salinas is a 66 year old female who were were asked to evaluate d/t ongoing right flank pain with a complicated history of end stage renal disease and polycystic kidney disease. CT scan was done this admission showing stable polycystic kidney disease, complex cystic lesion of the right kidney that appears as a subcapsular collection. Her urine culture is negative. WBC is 16.5 which is rising from yesterday, creatinine is 9.00 this is within normal range for her. She is afebrile but tachycardic and hypertensive. Review of Systems Cardiovascular: Cardiovascular: Denies chest pain Respiratory: Respiratory: Reports no additional respiratory complaints Gastrointestinal: Gastrointestinal: Denies abdominal pain, Denies nausea and Denies vomiting Genitourinary: Genitourinary: Denies hematuria, Denies nocturia, Denies dysuria, Denies pelvic pain, Reports flank pain, Denies urinary incontinence, Denies urinary hesitancy and Denies urinary urgency [facility] Past Medical History Medical History Anemia of chronic disease Asthma Chronic back pain Diabetes mellitus (~1995) End-stage renal disease on peritoneal dialysis On transplant list Gastritis GERD (gastroesophageal reflux disease) Gout HTN (hypertension) (~1983) Hypothyroidism (acquired) Nausea and vomiting in adult Peritoneal dialysis status (~06/2016) Polycystic kidney disease Seasonal rhinitis Vitamin D deficiency Surgical History Surgical History H/O colonoscopy (~02/23/15) H/O hernia repair 06/1995, 11/2019 History of partial hysterectomy (~11/1993) History of tonsillectomy (~06/1959) History of tubal ligation (~06/1976) Hx of appendectomy (~01/1980) Hx of cardiac cath Hx of cholecystectomy (~04/1995) Hx of umbilical hernia repair (~06/1979) Family History Family History Mother Family history of diabetes mellitus in first degree relative Polycystic kidney disease Heart disease Hypertension Father Family history of lung cancer Sibling Polycystic kidney disease Sibling Diabetes mellitus Heart disease Other Malignant neoplasm of prostate Social History Social History Social History: Pt does not drink caffeine. 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 She is and lives with her . She said she is in the middle of drawing up her power claim attorney papers and has not completed them as of yet. She would like for her and son to be the durable power claim attorney for healthcare. However the patient stated that she would like to be a DNR. We discussed this so that she understands what that meant. The patient stated that if her heart stops she does not want to be resuscitated at all and she does not want to be on a ventilator. The patient does not use any alcohol and she is a lifelong nonsmoker. She has 3 children. Two daughters and a son Smoking status: Never smoker Alcohol i
--- NOTE | 2022-07-15 17:17 | PM.IMPN ---
Progress Note: A&P Assessment and Plan (1) Chest pain: Code(s): R07.9 - Chest pain, unspecified Status: Acute Assessment and Plan: Appreciate cardiology consultation, they suspect it is noncardiac in etiology Stress test was negative today, they have signed off (2) Elevated troponin: Code(s): R77.8 - Other specified abnormalities of plasma proteins Status: Acute Assessment and Plan: likely 2/2 kidney failure (3) End-stage renal disease on peritoneal dialysis: Code(s): N18.6 - End stage renal disease; Z99.2 - Dependence on renal dialysis Status: Chronic Assessment and Plan: appreciate nephrology consult, cont PD (4) Right sided abdominal pain: Code(s): R10.9 - Unspecified abdominal pain Status: Acute Assessment and Plan: unsure of etiology, CT abd/pelvis non acute complete workup by GI in the past has shown nothing Urology consulted for hydronephrosis and cysts in the kidneys as well as Nephrology, no etiology for her flank/abdominal pain has been found Could be secondary to psoas inflammation as patient states she might of had of muscles spasm in the past, versus neuropathic pain, will trial gabapentin and tizanidine and reassess tomorrow (5) Pressure sore: Code(s): L89.90 - Pressure ulcer of unspecified site, unspecified stage Status: Acute Assessment and Plan: consult wound care Plan DVT prophylaxis with SCDs GI prophylaxis with PPI Code status full code Subjective Date/time seen: 07/15/22 17:17 Interval history: No overnight events noted. No chest pain or shortness of breath. No nausea, vomiting or diarrhea. No fevers or chills. Patient with continued abdominal and flank pain on the right. She states it is unchanged as it has remained for several months. Review of Systems Review of Systems: 12 point review of systems was assessed and was negative except as noted in the HPI Exam Narrative: General: No acute distress, alert and oriented per baseline HEENT: Atraumatic, normocephalic, mucous membranes moist CV: Regular rate and rhythm, S1, S2 Lungs: Clear to auscultation bilaterally, no rales or crackles noted, no wheezes, good air entry Abdomen: Soft, nontender, nondistended Extremities: Normal to inspection Skin: No rashes noted, no lesions or wounds seen Psych: Euthymic, normal affect Objective Data Vital Signs Vital Signs: Vital Signs - 24 hr 07/14/22 18:00 07/14/22 20:00 07/14/22 20:00 Temperature 97.4 F L Pulse Rate 98 91 95 Respiratory Rate 18 Blood Pressure 95/48 L Pulse Oximetry 100 Oxygen Delivery 07/14/22 20:00 07/14/22 22:00 07/15/22 00:00 Temperature 97.3 F L Pulse Rate 95 88 56 L Respiratory Rate 18 14 Blood Pressure 108/51 L Pulse Oximetry 100 100 Oxygen Delivery Room Air 07/15/22 00:00 07/15/22 00:00 07/15/22 04:00 Temperature Pulse Rate 92 92 96 Respiratory Rate 14 Blood Pressure Pulse Oximetry 100 Oxygen Delivery Room Air 07/15/22 04:00 07/15/22 04:00 07/15/22 06:00 Temperature 97.7 F Pulse Rate 96 90 105 H Respiratory Rate 14 18 Blood Pressure 96/56 L Pulse Oximetry 100 100 Oxygen Delivery Room Air 07/15/22 07:47 07/15/22 08:56 07/15/22 08:00 Temperature 97.8 F Pulse Rate 82 131 H Respiratory Rate 15 Blood Pressure 99/44 L Pulse Oximetry 99 Oxygen Delivery Room Air 07/15/22 12:00 07/15/22 08:00 07/15/22 10:00 Temperature Pulse Rate 111 H 104 H Respiratory Rate Blood Pressure Pulse Oximetry Oxygen Delivery Room Air 07/15/22 12:00 07/15/22 13:55 07/15/22 14:00 Temperature 97.2 F L Pulse Rate 100 88 100 Respiratory Rate 17 Blood Pressure 127/82 Pulse Oximetry 95 Oxygen Delivery 07/15/22 16:20 07/15/22 16:00 07/15/22 16:00 Temperature 97.0 F L Pulse Rate 101 H 106 H Respiratory Rate 20 Blood Pressure 105/44 L Pulse Oximetry 96 Oxygen
[2022-07-15] MEDS: GABAPENTIN 100 MG CAPSULE PO (21:00)
[2022-07-15] MEDS: TIZANIDINE HCL 1 MG TABLET PO (21:00)
--- NOTE | 2022-07-15 21:40 | PC.NURSE ---
Spoke with Kanchan STONE who has been discussing patient with Dr Herrera and per Kanchan an order for transfer to [facility] should be entered for patient under Dr Herrera.
--- NOTE | 2022-07-15 23:28 | PC.NURSE ---
This patient, Shantelle Salinas, was transferred to [facility] on 07/15/22 at 2328. Personal belongings sent with patient. Report given to Carola ARREDONDO. Appropriate documentation sent with patient.
[2022-07-16] VITALS (9 sets, daily range): BP systolic 91–98; BP diastolic 45–60; PULSE 72–105; RESP 14–18; TEMP 36.9–37.2; O2SAT 94–100
[2022-07-16] MEDS: LEVOTHYROXINE SODIUM 12.5 MCG TABLET PO (06:01)
[2022-07-16] MEDS: CYCLOBENZAPRINE HCL 10 MG TABLET PO (06:02)
--- NOTE | 2022-07-16 08:25 | PM.DS ---
DS: Admitting Diagnosis Discharge Date 07/17/22 Admitting Diagnosis abdominal pain DS: Discharge Diagnosis Discharge Diagnosis (1) Chest pain: Code(s): R07.9 - Chest pain, unspecified Status: Acute (2) Elevated troponin: Code(s): R77.8 - Other specified abnormalities of plasma proteins Status: Acute (3) End-stage renal disease on peritoneal dialysis: Code(s): N18.6 - End stage renal disease; Z99.2 - Dependence on renal dialysis Status: Chronic (4) Right sided abdominal pain: Code(s): R10.9 - Unspecified abdominal pain Status: Acute (5) Pressure sore: Code(s): L89.90 - Pressure ulcer of unspecified site, unspecified stage Status: Acute DS: Summary Hospital Course Hospital Course: 66-year-old female with polycystic kidney disease on peritoneal dialysis, hypertension, hypothyroidism, diabetes, and GERD who presented to the emergency department via EMS from home for evaluation of chest pain shortness a breath. Patient provides the following history. She was recently hospitalized for several days just couple of weeks ago with right flank pain which was treated as possible acute pyelonephritis though urine culture demonstrated no growth. She has been doing okay at home however over the last few days she has once again started to have some pain in the right side of her abdomen occasionally radiating into the epigastric/low sternal region. She describes a heaviness in that area but reports a sharp pain with palpation in the right side of the abdomen. She has felt a bit short of breath and the right-sided abdominal pain seems to be worse with deep inspiration. She also endorses a mild, nonproductive cough. She has several loose stools a day which is not new for her. She urinates only a small amount and has not had any dysuria. She denies fever, chills, and sweats. She has had nausea but no vomiting. She decided come in today for evaluation as her symptoms were not improving. She was afebrile on arrival with stable vital signs. Labs were significant for a WBC of 16.6, sodium 132, potassium 3.6, BUN 56, creatinine 10.40, lactic acid 1.1, troponin 0.070. EKG showed moderate T-wave abnormalities in the anterolateral and inferior leads though not significantly changed compared to prior tracings obtained last month. Patient c/o atypical chest pain, reproducible worse with deep breathing, coughing with ambulation.? EKG with T-wave abnormality changes possible ischemia but with mild elevation troponin with a flat for not consistent with acute coronary syndrome and/or plaque rupture.?Lexiscan negative for any ischemia or infarct, EF 65%. Likely musculoskeletal in etiology. Cardiology signed off. GI consulted for abdominal pain. Per the GI note, patient complains of ongoing right flank pain.? This appears to be related to her kidney.?Imaging studies revealed that she has had cysts in this kidney previous admission it was felt she had bleeding into a cyst.? Patient also has an active urinary tract infection and pyelonephritis was considered.? Suggest continued Nephrology and Urology follow-up on this. Nephrology was consulted for PD and to evaluate for flank pain. SBP not suspected, abx d/c. No nephrology etiology to flank and abdominal pain. Urology was consulted for flank pain. They state that the urine culture was negative, imaging was reviewed and there was no obstruction nor surgical intervention needed from a urological cause to her pain. Gapapentin and tizanadine were trialed for her abdominal/flank pain with improvement. PT/OT consulted. Msk etiology thought to be cause of her pain, likely inflammation for the right psoas muscle. Heating pad recommended, stretching and outpatient PT. She will be given a script for gabapentin and tizanadine for a few weeks until her muscle inflammation heals. PT/OT recommended [facility], family refused. Care coordination arranged as much as possible and gave them numbers and op
--- NOTE | 2022-07-16 08:45 | P.PNNP_ITS ---
Progress Note: A&P Assessment and Plan (1) End stage renal disease: Code(s): N18.6 - End stage renal disease Status: Chronic Assessment and Plan: * continue nightly CCPD * Volume status looks pretty good. * No chemistries today. * Potassium was normal yesterday and in sodium levels just slightly low. (2) Chest pain: Code(s): R07.9 - Chest pain, unspecified Status: Acute Assessment and Plan: * Cardiology recommendations noted * stress test negative. * Echocardiogram shows good LV function. (3) Right sided abdominal pain: Code(s): R10.9 - Unspecified abdominal pain Status: Acute Assessment and Plan: * etiology not clear * imaging results noted with no specific correlation * PD fluid results noted just a few more white cells than normal but very few neutrophils. * Cultures negative.-- on aztreonam and vancomycin. * No more abdominal pain. (4) HTN (hypertension): Onset Date: ~1983 Qualifiers: Hypertension type: essential hypertension Qualified Code(s): I10 - Essential (primary) hypertension Code(s): I10 - Essential (primary) hypertension Status: Chronic Assessment and Plan: * Systolic is in the 90s. * Hold lisinopril (5) Anemia: Code(s): D64.9 - Anemia, unspecified Status: Chronic Assessment and Plan: * due to ESRD * Hemoglobin dropped to 9.5 yesterday. 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 (7) Skin tear: Status: Acute Assessment and Plan: Patient has a skin tear on her presacral region. She has a bandage on it. I talked with nursing. They will check on it today. Subjective Date/time seen: 07/16/22 08:45 Interval history: Patient is just finishing her peritoneal dialysis. Fluid is clear. Flows were good. Her UF is over 1000. She has a wound on her back which she is complaining about. She apparently had a dressing when she came in but there is not been any dressing changes since then she says. Exam Narrative: General: WD/WN female in NAD Heart: normal S1 and S2; no rub or gallop Lungs: clear anteriorly Abdomen: soft, nontender, nondistended, positive bowel sounds Extremities: no edema Skin: No rash Objective Data Vital Signs Vital Signs: Vital Signs - 24 hr 07/15/22 08:56 07/15/22 12:00 07/15/22 10:00 Temperature Pulse Rate 131 H 104 H Respiratory Rate Blood Pressure Pulse Oximetry Oxygen Delivery Room Air 07/15/22 12:00 07/15/22 13:55 07/15/22 14:00 Temperature 97.2 F L Pulse Rate 100 88 100 Respiratory Rate 17 Blood Pressure 127/82 Pulse Oximetry 95 Oxygen Delivery 07/15/22 16:20 07/15/22 16:00 07/15/22 16:00 Temperature 97.
--- NOTE | 2022-07-16 08:45 | PM.PNNEP ---
Progress Note: A&P Assessment and Plan (1) End stage renal disease: Code(s): N18.6 - End stage renal disease Status: Chronic Assessment and Plan: continue nightly CCPD Volume status looks pretty good. No chemistries today. Potassium was normal yesterday and in sodium levels just slightly low. (2) Chest pain: Code(s): R07.9 - Chest pain, unspecified Status: Acute Assessment and Plan: Cardiology recommendations noted stress test negative. Echocardiogram shows good LV function. (3) Right sided abdominal pain: Code(s): R10.9 - Unspecified abdominal pain Status: Acute Assessment and Plan: etiology not clear imaging results noted with no specific correlation PD fluid results noted just a few more white cells than normal but very few neutrophils. Cultures negative.-- on aztreonam and vancomycin. No more abdominal pain. (4) HTN (hypertension): Onset Date: ~1983 Qualifiers: Hypertension type: essential hypertension Qualified Code(s): I10 - Essential (primary) hypertension Code(s): I10 - Essential (primary) hypertension Status: Chronic Assessment and Plan: Systolic is in the 90s. Hold lisinopril (5) Anemia: Code(s): D64.9 - Anemia, unspecified Status: Chronic Assessment and Plan: due to ESRD Hemoglobin dropped to 9.5 yesterday. 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 (7) Skin tear: Status: Acute Assessment and Plan: Patient has a skin tear on her presacral region. She has a bandage on it. I talked with nursing. They will check on it today. Subjective Date/time seen: 07/16/22 08:45 Interval history: Patient is just finishing her peritoneal dialysis. Fluid is clear. Flows were good. Her UF is over 1000. She has a wound on her back which she is complaining about. She apparently had a dressing when she came in but there is not been any dressing changes since then she says. Exam Narrative: General: WD/WN female in NAD Heart: normal S1 and S2; no rub or gallop Lungs: clear anteriorly Abdomen: soft, nontender, nondistended, positive bowel sounds Extremities: no edema Skin: No rash Objective Data Vital Signs Vital Signs: Vital Signs - 24 hr 07/15/22 08:56 07/15/22 12:00 07/15/22 10:00 Temperature Pulse Rate 131 H 104 H Respiratory Rate Blood Pressure Pulse Oximetry Oxygen Delivery Room Air 07/15/22 12:00 07/15/22 13:55 07/15/22 14:00 Temperature 97.2 F L Pulse Rate 100 88 100 Respiratory Rate 17 Blood Pressure 127/82 Pulse Oximetry 95 Oxygen Delivery 07/15/22 16:20 07/15/22 16:00 07/15/22 16:00 Temperature 97.0 F L Pulse Rate 101 H 106 H Respiratory Rate 20 Blood Pressure 105/44 L Pulse Oximetry 96 Oxygen Delivery Room Air 07/15/22 18:00 07/15/22 20:00 07/15/22 23:29 Temperature 97.2 F L 97.3 F L Pulse Rate 99 106 H 105 H Respiratory Rate 19 18 Blood Pressure 90/42 L 97/44 L Pulse Oximetry 98 99 Oxygen Delivery 07/15/22 20:00 07/15/22 20:00 07/15/22 22:00 Temperature Pulse Rate 102 H 104 H Respiratory Rate Blood Pressure Pulse Oximetry 98 Oxygen Delivery Room Air 07/16/22 00:00 07/16/22 04:00 07/16/22 08:03 Temperature 98.4 F Pulse Rate 105 H 87 Respiratory Rate 18 16 Blood Pressure 98/50 L Pulse Oximetry 99 100 100 Oxygen Delivery Room A
[2022-07-16] MEDS: fentaNYL CITRATE INJ (*CRX) 100 MCG/2 ML VIAL 12.5 MCG IV PUSH (08:48)
[2022-07-16] MEDS: AZTREONAM 2 GM in SODIUM CHLORIDE 0.9% IV 100 ML 200 ML IVPB (08:50)
[2022-07-16] MEDS: LIDOCAINE 5% PATCH 2 PATCH TOPICAL (08:51)
[2022-07-16] MEDS: FLUTICASONE PROPIONATE 0.05% NA SPR 16 GM BTL (*BKC) 1 SPRAY NASAL ×2 (08:54→17:39)
[2022-07-16] MEDS: polyethylene glycoL 3350 17 GM POWD.PACK PO (08:54)
[2022-07-16] MEDS: SEVELAMER CARBONATE 800 MG TABLET 5600 MG PO ×3 (08:54→17:39)
[2022-07-16] MEDS: allopurinoL 150 MG TABLET PO (08:55)
[2022-07-16] MEDS: FUROSEMIDE 80 MG TABLET PO ×2 (08:55→17:39)
[2022-07-16] MEDS: PANTOPRAZOLE 40 MG TABLET PO (08:55)
[2022-07-16] MEDS: VITAMIN B CMPLX/VIT C/FOLIC AC 1 CAPSULE 1 CAP PO (08:55)
[2022-07-16] MEDS: PIOGLITAZONE HCL 30 MG TABLET PO (08:55)
[2022-07-16] MEDS: CHOLECALCIFEROL 1,000 UNITS TABLET 2000 UNITS PO ×2 (08:55→17:39)
[2022-07-16 10:01] LABS: Basophils Absolute Auto 0.1 K/mm3 (0.0-0.1); Basophils Percent Auto 0.7 % (0.2-1.2); Eosinophils Absolute Auto 0.1 K/mm3 (0-0.3); Eosinophils Percent Auto 0.7 % (0-4.4); Hematocrit 28.5 % (37.0-47.0); Hemoglobin 8.8 g/dL (12.0-15.0); Immature Granulocyte Absolute 0.23 K/mm3 (0.00-0.031); Immature Granulocyte Percent A 1.4 % (0-0.5); Lymphocytes Absolute Auto 1.62 K/mm3 (0.9-3.2); Mean Corpuscular HGB Conc 30.9 g/dl (32-36); Mean Corpuscular Hemoglobin 31.5 pg (26-34); Mean Corpuscular Volume 102.2 fl (80-100); Monocytes Absolute Auto 1.3 K/mm3 (0.1-0.6); Neutrophils Absolute Auto 12.8 K/mm3 (1.3-6.7); Neutrophils Percent Auto 79.2 % (45.5-73.1); Platelet Count Result 294 k/mm3 (150-375); Red Blood Count 2.79 M/mm3 (4.2-5.4); Red Cell Distribution Width 14.6 % (11.5-14.5); White Blood Count 16.1 K/mm3 (4.5-10.0)
[2022-07-16 10:13] LABS: Alanine Aminotransferase 13 U/L (6-35); Albumin Level 2.6 g/dL (3.5-5.1); Alkaline Phosphatase 103 U/L (38-126); Anion Gap 8 mmol/L (8-16); Aspartate Amino Transferase 14 U/L (14-36); Bilirubin,Total 0.4 mg/dL (0.2-1.3); Blood Urea Nitrogen 43 mg/dL (7-17); Carbon Dioxide 25 mmol/L (22-30); Chloride 90 mmol/L (98-107); Estimated CRCL calculation 5 ml/min; Estimated Glomerular Filt Rate 4; Glucose 158 mg/dL (65-110); Potassium 3.7 mmol/L (3.4-5.0); Sodium 123 mmol/L (137-145)
[2022-07-16 11:41] LABS: Vancomycin Random 10.1 ug/mL (10-20)
[2022-07-16] MEDS: ONDANSETRON INJ 4 MG/2 ML VIAL IV PUSH (13:37)
--- NOTE | 2022-07-16 14:44 | PM.IMPN ---
Progress Note: A&P Assessment and Plan (1) Chest pain: Code(s): R07.9 - Chest pain, unspecified Status: Acute Assessment and Plan: Appreciate cardiology consultation, they suspect it is noncardiac in etiology Stress test was negative, they have signed off (2) Elevated troponin: Code(s): R77.8 - Other specified abnormalities of plasma proteins Status: Acute Assessment and Plan: likely 2/2 kidney failure (3) End-stage renal disease on peritoneal dialysis: Code(s): N18.6 - End stage renal disease; Z99.2 - Dependence on renal dialysis Status: Chronic Assessment and Plan: appreciate nephrology consult, cont PD (4) Right sided abdominal pain: Code(s): R10.9 - Unspecified abdominal pain Status: Acute Assessment and Plan: unsure of etiology, CT abd/pelvis non acute complete workup by GI in the past has shown nothing Urology consulted for hydronephrosis and cysts in the kidneys as well as Nephrology, no etiology for her flank/abdominal pain has been found Suspect it is secondary to psoas inflammation as patient states she might of had of muscles spasm in the past, versus neuropathic pain, gabapentin and tizanadine prn helped significantly, continue these at d/c (5) Pressure sore: Code(s): L89.90 - Pressure ulcer of unspecified site, unspecified stage Status: Acute Assessment and Plan: consult wound care Plan PT/OT eval pending, anticipate discharge tomorrow DVT prophylaxis with SCDs GI prophylaxis with PPI Code status full code Subjective Date/time seen: 07/16/22 14:44 Objective Data Vital Signs Vital Signs: Vital Signs - 24 hr 07/15/22 16:20 07/15/22 16:00 07/15/22 16:00 Temperature 97.0 F L Pulse Rate 101 H 106 H Respiratory Rate 20 Blood Pressure 105/44 L Pulse Oximetry 96 Oxygen Delivery Room Air 07/15/22 18:00 07/15/22 20:00 07/15/22 23:29 Temperature 97.2 F L 97.3 F L Pulse Rate 99 106 H 105 H Respiratory Rate 19 18 Blood Pressure 90/42 L 97/44 L Pulse Oximetry 98 99 Oxygen Delivery 07/15/22 20:00 07/15/22 20:00 07/15/22 22:00 Temperature Pulse Rate 102 H 104 H Respiratory Rate Blood Pressure Pulse Oximetry 98 Oxygen Delivery Room Air 07/16/22 00:00 07/16/22 04:00 07/16/22 08:03 Temperature 98.4 F Pulse Rate 105 H 87 Respiratory Rate 18 16 Blood Pressure 98/50 L Pulse Oximetry 99 100 100 Oxygen Delivery Room Air Room Air 07/16/22 08:45 07/16/22 08:00 07/16/22 14:00 Temperature 98.7 F Pulse Rate 72 94 Respiratory Rate 14 16 Blood Pressure 93/60 L 97/52 L Pulse Oximetry 100 97 Oxygen Delivery Room Air Intake/Output Intake/Output: Intake & Output 07/13/22 07/14/22 07/15/22 07/16/22 23:59 23:59 23:59 23:59 Intake Total 700 1330 1130 480 Output Total 0 -33 985 1294 Balance 700 1363 145 -814 Meds/Results Medications: Active Medications Generic Name Dose Route Start Last Admin Trade Name Freq PRN Reason Stop Dose Admin Allopurinol 150 mg 07/14/22 08:00 07/16/22 08:55 Allopurinol 150 Mg Tablet PO 150 mg DAILY@0800 [facility] Administration Fentanyl Citrate 12.5 mcg 07/14/22 14:00 07/16/22 08:48 Fentanyl Citrate Inj (*Crx) 100 Mcg/2 Ml Vial IV PUSH 12.5 mcg Q4H PRN Administration Pain Rated 7-10 Fluticasone Propionate 1 spray 07/14/22 09:00 07/16/22 08:54 Fluticasone Propionate 0.05% Na Spr 16 Gm Btl (*Bkc) NASAL 1 spray BID [facility] Administration Furosemide 80 mg 07/14/22 09:00 07/16/22 08:55 Furosemide 80 Mg Tablet PO 80 mg BID [facility] Administration Gabapentin 100 mg 07/16/22 17:00 Gabapentin 100 Mg Capsule PO TID [facility] Levothyroxine Sodium 12.5 mcg 07/14/22 06:30 07/16/22 06:01 Levothyroxine Sodium 12.5 Mcg Tablet PO 12.5 mcg DAILY@0630 [facility] Administration Lidocaine 2 patch 07/14/22 09:00 07/16/22 08:51 Lidocaine 5% Patch TOPICAL 2 patch DAILY [facility]
[2022-07-16] MEDS: TIZANIDINE HCL 1 MG TABLET PO (16:50)
--- NOTE | 2022-07-16 17:30 | PM.IMPN ---
Progress Note: A&P Assessment and Plan (1) Chest pain: Code(s): R07.9 - Chest pain, unspecified Status: Acute Assessment and Plan: Appreciate cardiology consultation, they suspect it is noncardiac in etiology Stress test was negative, they have signed off (2) Elevated troponin: Code(s): R77.8 - Other specified abnormalities of plasma proteins Status: Acute Assessment and Plan: likely 2/2 kidney failure (3) End-stage renal disease on peritoneal dialysis: Code(s): N18.6 - End stage renal disease; Z99.2 - Dependence on renal dialysis Status: Chronic Assessment and Plan: appreciate nephrology consult, cont PD (4) Right sided abdominal pain: Code(s): R10.9 - Unspecified abdominal pain Status: Acute Assessment and Plan: unsure of etiology, CT abd/pelvis non acute complete workup by GI in the past has shown nothing Urology consulted for hydronephrosis and cysts in the kidneys as well as Nephrology, no etiology for her flank/abdominal pain has been found Suspect it is secondary to psoas inflammation as patient states she might of had of muscles spasm in the past, versus neuropathic pain, gabapentin and tizanadine prn helped significantly, continue these at d/c (5) Pressure sore: Code(s): L89.90 - Pressure ulcer of unspecified site, unspecified stage Status: Acute Assessment and Plan: consult wound care Plan PT/OT eval pending, anticipate discharge tomorrow DVT prophylaxis with SCDs GI prophylaxis with PPI Code status full code Subjective Date/time seen: 07/16/22 17:30 Interval history: No overnight events noted. No chest pain or shortness of breath. No nausea, vomiting or diarrhea. No fevers or chills. Patient states she feels quite weak and is unable to go home today. She would like to work with therapy today and try going home tomorrow. Review of Systems Review of Systems: 12 point review of systems was assessed and was negative except as noted in the HPI Exam Narrative: General: No acute distress, alert and oriented per baseline HEENT: Atraumatic, normocephalic, mucous membranes moist CV: Regular rate and rhythm, S1, S2 Lungs: Clear to auscultation bilaterally, no rales or crackles noted, no wheezes, good air entry Abdomen: Soft, nontender, nondistended Extremities: Normal to inspection Skin: No rashes noted, no lesions or wounds seen Psych: Euthymic, normal affect Objective Data Vital Signs Vital Signs: Vital Signs - 24 hr 07/15/22 18:00 07/15/22 20:00 07/15/22 23:29 Temperature 97.2 F L 97.3 F L Pulse Rate 99 106 H 105 H Respiratory Rate 19 18 Blood Pressure 90/42 L 97/44 L Pulse Oximetry 98 99 Oxygen Delivery 07/15/22 20:00 07/15/22 20:00 07/15/22 22:00 Temperature Pulse Rate 102 H 104 H Respiratory Rate Blood Pressure Pulse Oximetry 98 Oxygen Delivery Room Air 07/16/22 00:00 07/16/22 04:00 07/16/22 08:03 Temperature 98.4 F Pulse Rate 105 H 87 Respiratory Rate 18 16 Blood Pressure 98/50 L Pulse Oximetry 99 100 100 Oxygen Delivery Room Air Room Air 07/16/22 08:45 07/16/22 08:00 07/16/22 14:00 Temperature 98.7 F Pulse Rate 72 94 Respiratory Rate 14 16 Blood Pressure 93/60 L 97/52 L Pulse Oximetry 100 97 Oxygen Delivery Room Air Intake/Output Intake/Output: Intake & Output 07/13/22 07/14/22 07/15/22 07/16/22 23:59 23:59 23:59 23:59 Intake Total 700 1330 1130 480 Output Total 0 -33 985 1294 Balance 700 1363 145 -814 Meds/Results Medications: Active Medications Generic Name Dose Route Start Last Admin Trade Name Xanderq PRN Reason Stop Dose Admin Allopurinol 150 mg 07/14/22 08:00 07/16/22 08:55 Allopurinol 150 Mg Tablet PO 150 mg DAILY@0800 [facility] Administration Fluticasone Propionate 1 spray 07/14/22 09:00 07/16/22 08:54 Fluticasone Propionate 0.05% Na Spr 16 Gm Btl (*Bkc) NASAL 1 spray BID [facility]
[2022-07-16] MEDS: GABAPENTIN 100 MG CAPSULE PO (17:39)
[2022-07-16] MEDS: TIZANIDINE HCL 2 MG TABLET PO (21:48)
[2022-07-17 05:25] LABS: Basophils Absolute Auto 0.1 K/mm3 (0.0-0.1); Basophils Percent Auto 0.8 % (0.2-1.2); Eosinophils Absolute Auto 0.1 K/mm3 (0-0.3); Eosinophils Percent Auto 0.9 % (0-4.4); Hematocrit 27.4 % (37.0-47.0); Hemoglobin 8.4 g/dL (12.0-15.0); Immature Granulocyte Percent A 1.3 % (0-0.5); Lymphocytes Absolute Auto 1.64 K/mm3 (0.9-3.2); Lymphocytes Percent Auto 10.9 % (18.3-44.2); Mean Corpuscular HGB Conc 30.7 g/dl (32-36); Mean Corpuscular Hemoglobin 31.5 pg (26-34); Mean Corpuscular Volume 102.6 fl (80-100); Mean Platelet Volume 10.3 fl (7.4-10.4); Monocytes Absolute Auto 1.5 K/mm3 (0.1-0.6); Neutrophils Absolute Auto 11.5 K/mm3 (1.3-6.7); Neutrophils Percent Auto 76.1 % (45.5-73.1); Platelet Count Result 285 k/mm3 (150-375); Red Blood Count 2.67 M/mm3 (4.2-5.4); Red Cell Distribution Width 14.6 % (11.5-14.5); White Blood Count 15.1 K/mm3 (4.5-10.0)
[2022-07-17 05:30] VITALS: BP 96/54; PULSE 99; RESP 16; TEMP 37.2; O2SAT 99
[2022-07-17 05:37] LABS: Alanine Aminotransferase 11 U/L (6-35); Albumin Level 2.4 g/dL (3.5-5.1); Alkaline Phosphatase 101 U/L (38-126); Anion Gap 8 mmol/L (8-16); Aspartate Amino Transferase 15 U/L (14-36); Bilirubin,Total 0.4 mg/dL (0.2-1.3); Blood Urea Nitrogen 54 mg/dL (7-17); Calcium 7.9 mg/dL (8.4-10.2); Carbon Dioxide 22 mmol/L (22-30); Chloride 93 mmol/L (98-107); Estimated CRCL calculation 6 ml/min; Estimated Glomerular Filt Rate 5; Glucose 198 mg/dL (65-110); Phosphorus 4.7 mg/dL (2.5-4.5); Potassium 3.8 mmol/L (3.4-5.0); Sodium 123 mmol/L (137-145)
[2022-07-17] MEDS: LEVOTHYROXINE SODIUM 12.5 MCG TABLET PO (05:55)
[2022-07-17 08:30] VITALS: BP 96/54; PULSE 99; RESP 16; TEMP 37.2
[2022-07-17] MEDS: SEVELAMER CARBONATE 800 MG TABLET 5600 MG PO (09:37)
[2022-07-17] MEDS: PIOGLITAZONE HCL 30 MG TABLET PO (09:38)
[2022-07-17] MEDS: allopurinoL 150 MG TABLET PO (09:38)
[2022-07-17] MEDS: CHOLECALCIFEROL 1,000 UNITS TABLET 2000 UNITS PO (09:38)
[2022-07-17] MEDS: VITAMIN B CMPLX/VIT C/FOLIC AC 1 CAPSULE 1 CAP PO (09:39)
[2022-07-17] MEDS: PANTOPRAZOLE 40 MG TABLET PO (09:40)
[2022-07-17] MEDS: FLUTICASONE PROPIONATE 0.05% NA SPR 16 GM BTL (*BKC) 1 SPRAY NASAL (09:40)
[2022-07-17] MEDS: FUROSEMIDE 80 MG TABLET PO (09:42)
[2022-07-17] MEDS: LIDOCAINE 5% PATCH 2 PATCH TOPICAL (09:42)
[2022-07-17] MEDS: GABAPENTIN 100 MG CAPSULE PO (09:42)
--- NOTE | 2022-07-17 10:01 | P.PNNP_ITS ---
Progress Note: A&P Assessment and Plan (1) End stage renal disease: Code(s): N18.6 - End stage renal disease Status: Chronic Assessment and Plan: * continue nightly CCPD * Euvolemic * Chemistries look good * Will continue same dialysis prescription * Okay for discharge from the kidney standpoint (2) Chest pain: Code(s): R07.9 - Chest pain, unspecified Status: Acute Assessment and Plan: * Cardiology recommendations noted * stress test negative. * Echocardiogram shows good LV function. (3) Right sided abdominal pain: Code(s): R10.9 - Unspecified abdominal pain Status: Acute Assessment and Plan: * etiology not clear * imaging results noted with no specific correlation * PD fluid results noted just a few more white cells than normal but very few neutrophils. * Cultures negative.-- on aztreonam and vancomycin. * The patient will reach out to the peritoneal dialysis nurse tomorrow for instructions about antibiotics. * No more abdominal pain. (4) HTN (hypertension): Onset Date: ~1983 Qualifiers: Hypertension type: essential hypertension Qualified Code(s): I10 - Essential (primary) hypertension Code(s): I10 - Essential (primary) hypertension Status: Chronic Assessment and Plan: * Systolic is in the 90s. * Holding lisinopril (5) Anemia: Code(s): D64.9 - Anemia, unspecified Status: Chronic Assessment and Plan: * due to ESRD * Hemoglobin dropped to 9.5 yesterday. Will give a dose of EPO Chinyere * Hemoglobin 8.4 today. Will give a dose of Epogen. (6) Diabetes mellitus: Onset Date: ~1995 Qualifiers: Diabetes mellitus type: type 2 Diabetes mellitus salvage determiner insulin use: without detention use Diabetes mellitus complication status: without complication Qualified Code(s): E11.9 - Type 2 diabetes mellitus without complications Code(s): E11.9 - Type 2 diabetes mellitus without complications Status: Chronic Assessment and Plan: * On Accu-Cheks and sliding scale insulin per hospitalist. (7) Skin tear: Status: Acute Assessment and Plan: Patient has a skin tear on her presacral region. She has a bandage on it. I talked with nursing. They will check on it today. Subjective Date/time seen: 07/17/22 10:01 Interval history: Patient is on peritoneal dialysis. No alarms. Fluid is clear. She had 1231 output. Seen at 9:00 a.m. No belly pain. Exam Narrative: General: WD/WN female in NAD Heart: normal S1 and S2; no rub or gallop Lungs: clear anteriorly Abdomen: soft, nontender, nondistended, positive bowel sounds Extremities: no edema or cyanosis Skin: No rash or subQ nodules Objective Data Vital Signs Vital Signs: Vital Signs - 24 hr 07/16/22 14:00 07/16/22 18:35 07/16/22 18:43 Temperature 98.7 F 98.4 F Pulse Rate 94 101 H Respiratory Rate 16 16 Blood Pressure 97/52 L 91/45 L Pulse Oximetry 97 100 Oxygen Delivery Room Air 07/16/22 20:33 07/16/22 21:21 07/16/22 20:00 Temperature 98.9 F Pulse Rate 89 100 100 Respiratory Rate 16 16 Blood Pressure 96/54 L 96/54 L Pulse Oximetry 97 94 94 Oxygen Delivery Room Air 07/17/22 05:30 07/17/22
--- NOTE | 2022-07-17 10:01 | PM.PNNEP ---
Progress Note: A&P Assessment and Plan (1) End stage renal disease: Code(s): N18.6 - End stage renal disease Status: Chronic Assessment and Plan: continue nightly CCPD Euvolemic Chemistries look good Will continue same dialysis prescription Okay for discharge from the kidney standpoint (2) Chest pain: Code(s): R07.9 - Chest pain, unspecified Status: Acute Assessment and Plan: Cardiology recommendations noted stress test negative. Echocardiogram shows good LV function. (3) Right sided abdominal pain: Code(s): R10.9 - Unspecified abdominal pain Status: Acute Assessment and Plan: etiology not clear imaging results noted with no specific correlation PD fluid results noted just a few more white cells than normal but very few neutrophils. Cultures negative.-- on aztreonam and vancomycin. The patient will reach out to the peritoneal dialysis nurse tomorrow for instructions about antibiotics. No more abdominal pain. (4) HTN (hypertension): Onset Date: ~1983 Qualifiers: Hypertension type: essential hypertension Qualified Code(s): I10 - Essential (primary) hypertension Code(s): I10 - Essential (primary) hypertension Status: Chronic Assessment and Plan: Systolic is in the 90s. Holding lisinopril (5) Anemia: Code(s): D64.9 - Anemia, unspecified Status: Chronic Assessment and Plan: due to ESRD Hemoglobin dropped to 9.5 yesterday. Will give a dose of EPO Chinyere Hemoglobin 8.4 today. Will give a dose of Epogen. (6) Diabetes mellitus: Onset Date: ~1995 Qualifiers: Diabetes mellitus type: type 2 Diabetes mellitus nursing home insulin use: without truck terminal manager use Diabetes mellitus complication status: without complication Qualified Code(s): E11.9 - Type 2 diabetes mellitus without complications Code(s): E11.9 - Type 2 diabetes mellitus without complications Status: Chronic Assessment and Plan: On Accu-Cheks and sliding scale insulin per hospitalist. (7) Skin tear: Status: Acute Assessment and Plan: Patient has a skin tear on her presacral region. She has a bandage on it. I talked with nursing. They will check on it today. Subjective Date/time seen: 07/17/22 10:01 Interval history: Patient is on peritoneal dialysis. No alarms. Fluid is clear. She had 1231 output. Seen at 9:00 a.m. No belly pain. Exam Narrative: General: WD/WN female in NAD Heart: normal S1 and S2; no rub or gallop Lungs: clear anteriorly Abdomen: soft, nontender, nondistended, positive bowel sounds Extremities: no edema or cyanosis Skin: No rash or subQ nodules Objective Data Vital Signs Vital Signs: Vital Signs - 24 hr 07/16/22 14:00 07/16/22 18:35 07/16/22 18:43 Temperature 98.7 F 98.4 F Pulse Rate 94 101 H Respiratory Rate 16 16 Blood Pressure 97/52 L 91/45 L Pulse Oximetry 97 100 Oxygen Delivery Room Air 07/16/22 20:33 07/16/22 21:21 07/16/22 20:00 Temperature 98.9 F Pulse Rate 89 100 100 Respiratory Rate 16 16 Blood Pressure 96/54 L 96/54 L Pulse Oximetry 97 94 94 Oxygen Delivery Room Air 07/17/22 05:30 07/17/22 08:30 Temperature 98.9 F 98.9 F Pulse Rate 99 99 Respiratory Rate 16 16 Blood Pressure 96/54 L 96/54 L Pulse Oximetry 99 Oxygen Delivery Intake/Output Intake/Output: Intake & Output 07/14/22 07/15/22 07/16/22 07/17/22 23:59 23:59 23:59 23:59 Intake Total 1330 1130 1420 50 Output Total -33 985 1294 1231 Balance 1363 145 126 -1181 Meds/Results Medications: Active Medications Generic Name Dose Route Start Last Admin Trade Name Xanderq PRN Reason Stop Dose Admin Allopurinol 150 mg 07/14/22 08:00 07/17/22 09:38 Allopurinol 150 Mg Tablet PO 150 mg DAILY@0800 [facility] Administration Epoetin Odilon-epbx 10,000 units 07/17/22 09:00 Epoetin Odilon-Epbx 10,000 Uni
[2022-07-17] MEDS: EPOETIN ALFA-EPBX 10,000 UNITS/ML VIAL 10000 UNITS SUB-Q (10:07)
[2022-07-19 21:32] LABS: Hepatitis B Core Ab Total Nonreactive (Nonreactive)
== END 2022-07-17 11:48 | disposition home or self-care (01) ==
LOC: ANHED 14:54 → ANHIMU 07-14 11:48 → ANH2MED 07-16 12:23 → ANHIMU 07-19 08:54
PROVIDERS: Emergency Medicine; Internal Medicine Cardiovascular Disease; Internal Medicine Nephrology; Physician Assistant; Admitting Provider Chiropractor; Emergency Provider Emergency Medicine; PCP Family Medicine; Visit Provider Student in an Organized Health Care Education/Training Program
DX: R07.9 Chest pain, unspecified (principal); R77.8 Other specified abnormalities of plasma proteins; I12.0 Hypertensive chronic kidney disease with stage 5 chronic kidney disease or end stage renal disease; E11.22 Type 2 diabetes mellitus with diabetic chronic kidney disease; D63.1 Anemia in chronic kidney disease; N18.6 End stage renal disease; Z99.2 Dependence on renal dialysis; R10.9 Unspecified abdominal pain; L89.90 Pressure ulcer of unspecified site, unspecified stage; S31.010A Laceration without foreign body of lower back and pelvis without penetration into retroperitoneum, initial encounter; R06.02 Shortness of breath; Z20.822 Contact with and (suspected) exposure to COVID-19; Q61.3 Polycystic kidney, unspecified; Q44.6 Cystic disease of liver; I34.0 Nonrheumatic mitral (valve) insufficiency; E03.9 Hypothyroidism, unspecified; K21.9 Gastro-esophageal reflux disease without esophagitis; Z66 Do not resuscitate; I51.89 Other ill-defined heart diseases; N39.0 Urinary tract infection, site not specified; J45.909 Unspecified asthma, uncomplicated; M10.9 Gout, unspecified; E55.9 Vitamin D deficiency, unspecified; Z83.3 Family history of diabetes mellitus; Z84.1 Family history of disorders of kidney and ureter; Z82.49 Family history of ischemic heart disease and other diseases of the circulatory system; Z79.51 Long term (current) use of inhaled steroids; Z79.899 Other long term (current) drug therapy
CPT/HCPCS: 36415; 71046; 71275; 74177; 76705; 76775; 78452; 80053; 80061; 80074; 80202; 82140; 82607; 82728; 82746; 83540; 83550; 83605; 83690; 83880; 84100; 84484; 85025; 85610; 85652; 85730; 86140; 86704; 86705; 86706; 87040; 87070; 87075; 87205; 87340; 87637; 89051; 90945; 93005; 93017; 93306; 96365; 96367; 96374; 96375; 96376; 97161; 97165; 99285; A9270; A9502; G0378; J0131; J0780; J2405; J2785; J3010; J3370; J7040; Q5105; Q9967

== ENCOUNTER 2022-07-20 04:40 | Inpatient (IN) | payer MEDICARE, OTHER, SELFPAY ==
[2022-07-20] VITALS (69 sets, daily range): BP systolic 54–114; BP diastolic 34–58; PULSE 80–109; RESP 12–24; TEMP 36.2–36.5; O2SAT 90–100; BMI 27.5
--- NOTE | ~2022-07-20 | XR_ITS ---
EXAMINATION: XR abdomen NG/feed tube insert DATE: 07/25/2022 15:51 INDICATION: Nasogastric tube placement. TECHNIQUE: A supine view of the abdomen was obtained. COMPARISON: CT abdomen and pelvis 07/24/2022 FINDINGS: There are no dilated loops of bowel. Surgical clips in the right upper quadrant are likely from cholecystectomy. There is elevation of right hemidiaphragm. The nasogastric tube tip is in the s tomach. There is a peritoneal dialysis catheter. IMPRESSION: 1. Nasogastric tube tip in the stomach. Reviewed, dictated and finalized at location A. APPLICATION ARCHITECT
--- NOTE | ~2022-07-20 | XR_ITS ---
XR chest 1V portable 07/20/2022 06:17 Indication: Weakness Procedure: AP portable chest Comparison: Comparison to multiple prior studies sequentially, with oldest reviewed study dated 10/23. Findings: Heart size normal. There are persistent infiltrates of the right mid and lower lung. Heart size normal. No pleural effusion or pneumothorax. Impression: 1: Persistent infiltrates of the right mid and lower lung which may represent pneumonia and/or atelec tasis/scarring. Reviewed, dictated and finalized at location A. AL APPLIANCE REPAIRER Impression: 1: Persistent infiltrates of the right mid and lower lung which may represent p neumonia and/or atelectasis/scarring.
--- NOTE | ~2022-07-20 | CT_ITS ---
EXAMINATION: CT hip LT wo con DATE: 07/21/2022 08:45 INDICATION: Left hip pain. Fall. TECHNIQUE: Computed tomography (CT) of the left hip was performed without intravenous contrast. Autom ated exposure control and iterative reconstruction technique were employed. The dose-length product w as 240.34 mGy-cm. COMPARISON: CT abdomen and pelvis 07/20/2022, 06/20/22, 07/13/22 FINDINGS: Partially visualized is a catheter in left external iliac vein. Bone alignment is normal. N o fracture. There is moderate left hip osteoarthritis. There is severe left trochanteric bursitis wit h fluid collection measuring 8.4 x 2.4 x 12.0 cm. IMPRESSION: 1. Moderate left hip osteoarthritis. 2. Severe left trochanteric bursitis with fluid collection measuring 8.4 x 2.4 x 12.0 cm. Reviewed, dictated and finalized at location A. SHAPER SET UP OPERATOR
--- NOTE | ~2022-07-20 | CT_ITS ---
EXAMINATION: CT cervical spine wo con DATE: 07/20/2022 06:35 INDICATION: Status post fall. Head injury. TECHNIQUE: Computed tomography (CT) of the cervical spine was performed without intravenous contrast. The dose-length product was 275 mGy-cm. Automated exposure control and iterative reconstruction tech nique were employed. COMPARISON: CT dated 05/08/2009 FINDINGS: Lung apices are normal. There has been interval loss of disc height at C3-4 with retrolisth esis at this level as an well is anterior listhesis at C4-5. There is disc narrowing at C5-6 and C6-7 . There is severe endplate degenerative change at C3-4. There is degenerative anterolisthesis at C7-T 1. Odontoid process is normal. Lateral masses are normally aligned. There is moderate multilevel face t hypertrophy. No evidence for perched facet. Craniovertebral junction is normal. Spinous processes a re normal. IMPRESSION: 1. No acute fracture. 2: Severe cervical spondylosis with significant progression since prior study. Reviewed, dictated and finalized at location A. REPAIR TECHNICIAN
--- NOTE | ~2022-07-20 | CT_ITS ---
EXAMINATION: CT abdomen pelvis wo con DATE: 07/24/2022 12:00 INDICATION: Abdomen pain. TECHNIQUE: Computed tomography (CT) of the abdomen and pelvis was performed without intravenous contr ast. The dose-length product was 1194.70 mGy-cm. Automated exposure control and iterative reconstruct ion technique were employed. COMPARISON: CT dated 07/20/2022 FINDINGS: There are persistent linear infiltrates of the right mid and lower lung, most likely atelec tasis/scarring. Interval development of moderate ascites. There is possible cirrhosis of the liver wi th nodular surface. There are numerable cysts of the liver and kidneys, many of which are partially c alcified, consistent with adult polycystic kidney disease. There is moderate retained fecal material in the rectum. There is a peritoneal dialysis catheter present. There is mild presacral fluid/inflamm ation. Colonic diverticulosis without diverticulitis. Severe lumbar spondylosis. Mild chronic superio r plate compression deformity of T12. There is mild diffuse subcutaneous edema. IMPRESSION: 1. Interval development of moderate ascites. Peritoneal dialysis catheter present. 2: Sequela of a double polycystic kidney disease. 3: Large amount of retained fecal material in the rectum which is distended. Mild perirectal fluid/in flammation extending into the presacral space. Consider stercoral proctitis. Reviewed, dictated and finalized at location A. ECHNICAL ENGINEERING TECHNICIAN IMPRESSION: 1. Interval development of moderate ascites. Peritoneal dialysis catheter prese nt. 2: Sequela of a double polycystic kidney disease. 3: Large amount of retained fecal material in the rectum which is distended. Mi ld perirectal fluid/inflammation extending into the presacral space. Consider s tercoral proctitis.
--- NOTE | ~2022-07-20 | CT_ITS ---
EXAMINATION: CT brain wo con DATE: 07/20/2022 06:35 INDICATION: Status post fall. Weakness. TECHNIQUE: Computed tomography (CT) of the head was performed without intravenous contrast. The dose- length product was 983.67 mGy-cm. Automated exposure control and iterative reconstruction technique w ere employed. COMPARISON: CT dated 09/06/2018 FINDINGS: There is extra-axial soft tissue in the left posterior parietal region with associated calc ification, suspicious for chronic subdural or subarachnoid hematoma. Evaluation limited by motion and streak artifact from overlying catheter. Midline sagittal images demonstrate a normal corpus callosu m and craniovertebral junction. No ventriculomegaly or midline shift. Basilar cisterns are patent. Th ere is intracranial atherosclerosis. Paranasal sinuses and mastoids are pneumatized. No depressed sku ll fractures. There is a chronic right lacunar infarction of the caudate nucleus. No acute infarction , hemorrhage, mass or mass effect. There are scattered mild periventricular and subcortical white mat ter changes, most likely related to small vessel ischemic disease (microangiopathy). IMPRESSION: 1. 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 Evaluation limited by motion and streak artifact from overlying catheter. 2: Chronic right lacunar infarction. Reviewed, dictated and finalized at location A. LTY ADMINISTRATOR IMPRESSION: 1. Extra soft tissue in the left posterior parietal region with associated calc ification, suspicious for chronic subdural or subarachnoid hematoma. Evaluation limited by motion and streak artifact from overlying catheter. 2: Chronic right lacunar infarction.
--- NOTE | ~2022-07-20 | XR_ITS ---
XR chest 1V portable DATE: 08/08/2022 15:48 INDICATION: CODE BLUE. Recent surgery. TECHNIQUE: Portable supine AP chest on 08/08/2022 at 1533 hours COMPARISON: 08/08/2022 portable AP spot images Numerous portable AP chest CT pulmonary scan FINDINGS: Prominent discoid atelectasis or scarring in the lower lung zones, right greater than left. No apparent pulmonary consolidation. No pleural effusion or pulmonary venous congestion. Normal heart size. Left internal jugular tunneled dialysis catheter tip is situated over the central upper chest, medial to the expected position of the superior vena cava. Consider CT correlation for assessment or cathet er position.. ET tube in satisfactory position. Surgical clips overlie the right upper quadrant, consistent with cholecystectomy. IMPRESSION: Prominent discoid atelectasis or scarring in the right lower lung field and to a lesser e xtent left lower lung Left internal jugular tunneled catheter course is more central than expected, considerably medial to the superior vena cava. Consider CT thorax correlation. I contacted Yin by telephone in the ICU at 1558 hours to report the catheter position. She noted christel t the patient had a short time ago. Reviewed, dictated and finalized at location B. [facility] IMPRESSION: Prominent discoid atelectasis or scarring in the right lower lung f ield and to a lesser extent left lower lung Left internal jugular tunneled catheter course is more central than expected, c onsiderably medial to the superior vena cava. Consider CT thorax correlation. I contacted Yin by telephone in the ICU at 1558 hours to report the catheter p osition. She noted that the patient had a short time ago.
--- NOTE | ~2022-07-20 | CT_ITS ---
CT ANGIOGRAM HEAD History: Confusion, hemorrhage. Technique: Following axial noncontrast imaging of the brain, serial spiral axial images through the h ead were obtained during arterial phase IV injection of 100 cc of Omnipaque 350. 3-D postprocessing a nd MIP images were then reconstructed on the remote workstation. Dose reduction technique was used on this scan by utilizing automated exposure control and iterative reconstruction technique. The dose-l ength product (DLP) was 1148.55 mGy-cm. COMPARISON: 07/26/2022 Findings: Noncontrast images demonstrate stable subtle curvilinear hyperdensity in the left parietal region, unclear whether this could represent hemorrhage versus calcification. Distal vertebral arteries, basilar artery, and posterior cerebral arteries are patent. Distal right v ertebral artery is hypoplastic. Left posterior cerebral artery in particular is predominantly fed via posterior communicating artery. Distal internal carotid arteries, middle cerebral arteries, and anterior cerebral arteries are patent . No stenosis, large vessel occlusion, or aneurysm. Impression: No significant arterial vascular abnormality identified. Stable curvilinear hyperdensity in the left parietal region on noncontrast images. Diagnostic conside rations again include hemorrhage versus dystrophic calcification. Reviewed, dictated and finalized at location . AMBULATORY Impression: No significant arterial vascular abnormality identified. Stable curvilinear hyperdensity in the left parietal region on noncontrast imag es. Diagnostic considerations again include hemorrhage versus dystrophic calcif ication.
--- NOTE | ~2022-07-20 | CT_ITS ---
EXAMINATION: CT brain wo con DATE: 07/26/2022 09:59 INDICATION: Confusion TECHNIQUE: Computed tomography (CT) of the head was performed without intravenous contrast. Sagittal and coronal reconstructions were performed. The mA was adjusted according to patient size. Iterative reconstruction technique was employed. The dose-length product was 529.67 mGy-cm. COMPARISON: Head CT studies dated 07/20/2022 and 09/06/2018 brain MR dated 08/26/2019 FINDINGS: Linear increased attenuation extending along a sulcus in the left parieto-occipital region suspicious for subarachnoid hemorrhage. This appears slightly decreased when compared with the prior study alth ough assessment is more limited on the prior study due to metallic streak artifact in this region. No acute infarction or abnormal extra axial fluid collection. Ventricles are normal and symmetric. No m ass/mass effect. Changes of right intraocular lens replacement. The orbits, paranasal sinuses and mas toid air cells are normal. IMPRESSION: 1. Linear increased attenuation extending along a sulcus the left parietal occipital region which karolyn ears slightly decreased since the prior study concerning for subarachnoid hemorrhage with differentia l including dystrophic calcification. Dr. Green discussed these findings with Dr. Olson at 10:20 a.m.. Reviewed, dictated and finalized at location A. P MACHINE OPERATOR IMPRESSION: 1. Linear increased attenuation extending along a sulcus the left parietal occi pital region which appears slightly decreased since the prior study concerning for subarachnoid hemorrhage with differential including dystrophic calcificatio n. Dr. Green discussed these findings with Dr. Olson at 10:20 a.m..
--- NOTE | ~2022-07-20 | CT_ITS ---
EXAMINATION: CT abdomen pelvis wo con DATE: 07/20/2022 06:35 INDICATION: Status post fall. Abdomen pain. TECHNIQUE: Computed tomography (CT) of the abdomen and pelvis was performed without intravenous contr ast. The dose-length product was 829.16 mGy-cm. Automated exposure control and iterative reconstructi on technique were employed. COMPARISON: CT dated 07/13/2022. FINDINGS: Heart size normal. No significant pleural or pericardial effusion. There are in numerable c ystic masses of the liver and kidneys with associated areas of coarse calcification, consistent with polycystic kidney disease. There is a small amount of perisplenic fluid which is new. Cannot exclude splenic laceration. Recommend correlation with contrast-enhanced CT. No overlying rib fracture is rj ntified. The pancreas and adrenal glands are unremarkable. Small amount of free fluid in the pelvis. There is a peritoneal dialysis catheter present. Nonobstructive bowel pattern. Colonic diverticulosis without evidence for diverticulitis. There is perihepatic fluid. Moderate-severe lumbar spondylosis. Mild superior endplate compression deformity of T12, unchanged, likely chronic. There are calcified injection granulomas in the gluteal regions. IMPRESSION: 1. Small amount of ascites. There is fluid surrounding the spleen which may relate to ascites, althou gh in the appropriate clinical setting underlying splenic laceration not excluded. Consider correlati on with contrast-enhanced CT abdomen in the appropriate setting. 2: Polycystic kidney disease. Peritoneal dialysis catheter present. Reviewed, dictated and finalized at location A. IC WORKER IMPRESSION: 1. Small amount of ascites. There is fluid surrounding the spleen which may rel ate to ascites, although in the appropriate clinical setting underlying splenic laceration not excluded. Consider correlation with contrast-enhanced CT abdome n in the appropriate setting. 2: Polycystic kidney disease. Peritoneal dialysis catheter present.
--- NOTE | ~2022-07-20 | XR_ITS ---
XR chest 1V portable 07/29/2022 11:31 Indication: Shortness of breath Procedure: AP portable chest Comparison: Comparison to multiple prior studies sequentially, with oldest reviewed study dated 10/23. Findings: Chronic bibasilar infiltrates, most likely atelectasis/scarring. No new focal pneumonia, pl eural effusion or pneumothorax. NG tube in the stomach. No acute osseous abnormality. Impression: 1: Chronic bibasilar infiltrates, most likely atelectasis/scarring. Reviewed, dictated and finalized at location B. LE DEHORNER Impression: 1: Chronic bibasilar infiltrates, most likely atelectasis/scarring.
--- NOTE | ~2022-07-20 | CT_ITS ---
EXAMINATION: CT guide absc cath placement DATE: 07/21/2022 11:43 INDICATION: Left trochanteric bursitis. TECHNIQUE: The procedure including the risks, benefits, and alternatives was discussed with the patie nt. Risks discussed included bleeding and infection. The patient understood the risks and benefits an d agreed to proceed. The patient was confirmed to be receiving appropriate antibiotic coverage. The skin overlying the left pelvis was prepped and draped in usual sterile fashion. Anesthetic was admin istered with 1% lidocaine subcutaneously. An 18 gauge trochar needle was inserted into the left troch anteric bursa with CT guidance. The needle was exchanged over a wire for 6 Montserratian and 8 Montserratian dilato rs and then for an 8.5 [place]erratian pigtail catheter. The catheter was stitched to the skin, and a sterile dressing was applied. The mA was adjusted according to patient size. Iterative reconstruction technThirdSpaceLearning ue was employed. The dose-length product was 147.97 mGy-cm. There were no immediate complications. FINDINGS: CT images demonstrate the catheter within the left trochanteric bursal fluid collection. 10 mL fluid was aspirated for testing. IMPRESSION: 1. Successful CT-guided drainage of the left trochanteric bursal fluid collection. 2. 10 mL serosanguineous fluid was sent for aerobic and anaerobic cultures. Reviewed, dictated and finalized at location A. AL OPERATOR IMPRESSION: 1. Successful CT-guided drainage of the left trochanteric bursal fluid collecti on. 2. 10 mL serosanguineous fluid was sent for aerobic and anaerobic cultures.
--- NOTE | ~2022-07-20 | XR_ITS ---
EXAMINATION: XR fl guide central line place DATE: 08/08/2022 14:00 BLOCKLAYER INDICATION: TUNNELED DIALYSIS CATH FROM LEFT SIDE . TECHNIQUE: 4 fluoroscopic images of the chest were obtained during fluoroscopic guided central line p lacement performed by the surgeon. I was not present in the operating room. Fluoroscopy exposure time was 10.9 seconds. Air Kerma 1.2816 mGy. DAP 0.0254 mGym2. COMPARISON: X-ray chest 07/29/2022 FINDINGS: A tunneled, left IJ dual lumen dialysis catheter terminates at the proximal right atrium. No unexpect ed radiopaque foreign body. IMPRESSION: Fluoroscopic documentation of fluoroscopic-guided central line placement. Please refer to the operati ve note for complete procedural details . Reviewed, dictated and finalized at location K. KLAYER IMPRESSION: Fluoroscopic documentation of fluoroscopic-guided central line placement. Pleas e refer to the operative note for complete procedural details .
--- NOTE | ~2022-07-20 | CT_ITS ---
EXAMINATION: CT hip LT wo con DATE: 08/01/2022 09:25 INDICATION: Left-sided trochanteric bursitis. TECHNIQUE: Computed tomography (CT) of the left hip was performed without intravenous contrast. Autom ated exposure control and iterative reconstruction technique were employed. The dose-length product w as 270.79 mGy-cm. COMPARISON: CT abdomen and pelvis 07/24/2022, left hip CT 07/21/2022 FINDINGS: A rectal tube is noted. There is diverticulosis of the colon without evidence of diverticul itis. There is a peritoneal dialysis catheter. Bone alignment is normal. No fracture. There is modera te left hip osteoarthritis. There is a percutaneous drain in the trochanteric bursa. There is no sign ificant residual fluid collection. There is widespread subcutaneous fat stranding, consistent with ed sveta. IMPRESSION: 1. Percutaneous drain in the left trochanteric bursa without significant residual fluid collection. Reviewed, dictated and finalized at location A. READER IMPRESSION: 1. Percutaneous drain in the left trochanteric bursa without significant residu al fluid collection.
--- NOTE | ~2022-07-20 | XR_ITS ---
XR shoulder LT min 2V 07/24/2022 12:10 Indication: Left shoulder pain Procedure: 4 views left shoulder Comparison: 12/11/2020 Findings: Possible mild superior subluxation of the humeral head, possibly secondary to rotator cuff tear. Mild osteoarthritis of the shoulder. No acute fracture is identified. Visualized lung parenchym a is unremarkable. Impression: 1: No acute fracture. Reviewed, dictated and finalized at location A. RY SOIL STABILIZER Impression: 1: No acute fracture.
--- NOTE | 2022-07-20 04:51 | ECG_ITS ---
Measurements Intervals Centre Rate: 100 P: 56 AR: 155 QRS: 50 QRSD: 92 T: -73 QT: 365 QTc: 471 Interpretive Statements SINUS TACHYCARDIA MODERATE T-WAVE ABNORMALITY, CONSIDER ANTEROLATERAL ISCHEMIA [-0.1+ mV T-WAVE IN V3- V6] MODERATE T-WAVE ABNORMALITY, CONSIDER INFERIOR ISCHEMIA [-0.1+ mV T-WAVE IN II/aVF] COMPARED TO ECG 07/13/2022 12:27:20 NO SIGNIFICANT CHANGES Electronically Signed On 07-20-2022 15:25:47 NETWORK DEVELOPMENT COORDINATOR by Rosenda Gray M.D.
[2022-07-20 05:39] LABS: Basophils Absolute Auto 0.2 K/mm3 (0.0-0.1); Basophils Percent Auto 0.9 % (0.2-1.2); Eosinophils Percent Auto 0.1 % (0-4.4); Hematocrit 33.4 % (37.0-47.0); Hemoglobin 10.5 g/dL (12.0-15.0); Immature Granulocyte Absolute 0.77 K/mm3 (0.00-0.031); Immature Granulocyte Percent A 3.5 % (0-0.5); Lymphocytes Absolute Auto 1.08 K/mm3 (0.9-3.2); Lymphocytes Percent Auto 4.9 % (18.3-44.2); Mean Corpuscular HGB Conc 31.4 g/dl (32-36); Mean Corpuscular Hemoglobin 31.8 pg (26-34); Mean Corpuscular Volume 101.2 fl (80-100); Monocytes Absolute Auto 1.8 K/mm3 (0.1-0.6); Monocytes Percent Auto 8.2 % (2.6-8.5); Neutrophils Percent Auto 82.4 % (45.5-73.1); Platelet Count Result 359 k/mm3 (150-375); Red Cell Distribution Width 15.2 % (11.5-14.5); White Blood Count 21.9 K/mm3 (4.5-10.0)
[2022-07-20] MEDS: SODIUM CHLORIDE 0.9% IV 1,000 ML 999 ML IV CONT ×2 (05:41→08:29)
--- NOTE | 2022-07-20 05:45 | PC.NURSE ---
EMS called this morning for lift assist after pt fell while walking to the bathroom. Family wanted pt transported d/t increasing generalized weakness and decreased appetite since patient was discharged from this facility 3 days ago. Pt is poor historian and states she was admitted to the hospital for some kind of infection . Upon arrival to ED pt was alert and oriented x4, speech is clear, and pupils are equal and reactive, but sluggish. Pt denies neck or back pain r/t fall, but does c/o head pain. No obvious deformities or wounds noted on assessment. She also c/o abdominal pain upon palpation which she believes is r/t her fall. Pt does peritoneal dialysis every night and received her full treatment last night. States she has not missed any treatments. She denies chest pain or SOB. Pt is hypotensive. Dr. Schuster has been notified.
[2022-07-20 05:54] LABS: Lactic Acid Reflex 1.4 mmol/L (0.7-2.0)
[2022-07-20 05:56] LABS: Alanine Aminotransferase 16 U/L (6-35); Albumin Level 3.2 g/dL (3.5-5.1); Alkaline Phosphatase 244 U/L (38-126); Anion Gap 12 mmol/L (8-16); Aspartate Amino Transferase 21 U/L (14-36); Bilirubin,Total 0.4 mg/dL (0.2-1.3); Blood Urea Nitrogen 67 mg/dL (7-17); Calcium 8.6 mg/dL (8.4-10.2); Carbon Dioxide 24 mmol/L (22-30); Chloride 96 mmol/L (98-107); Estimated CRCL calculation 5 ml/min; Estimated Glomerular Filt Rate 4; Glucose 282 mg/dL (65-110); INR 1.1; Potassium 3.8 mmol/L (3.4-5.0); Prothrombin Time 13.8 Seconds (11.1-14.7); Sodium 132 mmol/L (137-145)
[2022-07-20 05:57] LABS: Partial Thromboplastin Time 31.1 SECONDS (22.3-36.8)
[2022-07-20 06:09] LABS: CRP 11.4 mg/dL (<1.0)
--- NOTE | 2022-07-20 06:41 | ED.GENADULT ---
HPI - General Adult General Chief complaint: Weakness <Edmar Schuster MD - Last Filed: 07/20/22 06:46> Stated complaint: weakness <Edmar Schuster MD - Last Filed: 07/20/22 06:46> Time Seen by Provider: 07/20/22 04:54 <Edmar Schuster MD - Last Filed: 07/20/22 06:46> History of Present Illness HPI narrative: Patient is a 66-year-old female who presents to Emergency Department with a chief complaint of generalized weakness. Patient reports she was discharged from the hospital proximately 3 days ago after she had a possible infection. Patient reports that she does peritoneal dialysis completed her run of dialysis today the patient reports that she has been feeling weak and ended up calling EMS for lift assist and reports that she has had headache and just feeling generally unwell. Patient also does report that she started having discomfort in her abdomen. <Edmar Schuster MD - Last Filed: 07/20/22 06:46> Related Data Home medications: Home Medications Medication Instructions Recorded Confirmed furosemide 80 mg tablet 80 mg PO BID 03/25/20 07/20/22 vitamin B complex-vitamin C-folic 1 tablet PO DAILY 03/25/20 07/20/22 acid 0.8 mg tablet (Renal-Yojana) cholecalciferol (vitamin D3) 50 50 mcg PO BID 12/22/20 07/20/22 mcg (2,000 unit) capsule cinnamon bark 500 mg capsule 1,000 mg PO BID 12/22/20 07/20/22 cranberry 500 mg capsule 500 mg PO DAILY 12/22/20 07/20/22 sevelamer carbonate 800 mg tablet 5,600 mg PO TIDWM 12/22/20 07/20/22 fluticasone propionate 50 1 spray intranasal BID 06/16/22 07/20/22 mcg/actuation nasal spray,suspension (Flonase Allergy Relief) loratadine 10 mg tablet (Claritin) 10 mg PO DAILY PRN Congestion 06/16/22 07/20/22 polyethylene glycol 3350 17 gram 17 g PO QAM 06/16/22 07/20/22 oral powder packet (Miralax) <Edmar Schuster MD - Last Filed: 07/20/22 06:46> Allergies/adverse reactions: Allergies Allergy/AdvReac Type Severity Reaction Status Date / Time azithromycin Allergy Severe Hives / Verified 07/13/22 13:50 Red Face cephalexin Allergy Severe Hives / Verified 07/13/22 13:50 [place] Cephalosporins Allergy Severe Hives / Verified 07/13/22 13:50 [place] hydrocodone Allergy Severe Hives / Verified 07/13/22 13:50 [place] Penicillins Allergy Intermediate Hives / Verified 07/13/22 13:50 Red Face tetracycline Allergy Unknown Rash Verified 07/13/22 13:50 aspirin AdvReac Severe Ulcers Verified 07/13/22 13:50 codeine AdvReac Intermediate Hallucinati Verified 07/13/22 13:50 ng diazepam AdvReac Intermediate Confusion Verified 07/13/22 13:50 fentanyl AdvReac Intermediate Nausea Verified 07/13/22 13:50 orphenadrine AdvReac Intermediate Other Verified 07/13/22 13:50 <Edmar Schuster MD - Last Filed: 07/20/22 06:46> Review of Systems Review of Systems: A 10 system review of systems was completed on the patient and is negative except for what is stated in the HPI. Nursing and ancillary documentation was reviewed. <Edmar Schuster MD - Last Filed: 07/20/22 06:46> [facility] Past Medical History Medical History: Medical History (Updated 07/20/22 @ 18:56 by Uriah Carmona MD) Anemia of chronic disease Asthma Chronic back pain End-stage renal disease on peritoneal dialysis (06/2016) On transplant list Gastritis Gout Hypertension (1983) Hypothyroidism (acquired) Polycystic kidney disease Seasonal rhinitis Type 2 diabetes mellitus (1995) Vitamin D deficiency <Edmar Schuster MD - Last Filed: 07/20/22 06:46> Surgical History Surgical History: Surgical History (Updated 07/20/22 @ 15:31 by Kanchan Ferreira PA-C) History of appendectomy (01/1980) History of cardiac catheterization History of cholecystectomy (04/1995) History of colonoscopy History of hernia repair History of partial hysterectomy (11/1993) History of tonsillectomy (
[2022-07-20] MEDS: AZTREONAM 2 GM in SODIUM CHLORIDE 0.9% IV 100 ML 200 ML IVPB (07:00)
--- NOTE | 2022-07-20 07:10 | PC.NURSE ---
Patient report received from ARNULFO Olguni. All questions answered and care of patient assumed.
--- NOTE | 2022-07-20 07:20 | PC.NURSE ---
Dr. Carmona aware of patient's BP and at bedside with US to evaluate for central line placement. It was communicated that this RN was attempting to call vascular microsoft access developer to assist with line placement. Dr. Carmona asked about PICC line placement. Aware patient currently has no vascular access. Patient alert and oriented without complaints other than weakness. Dr. Carmona aware that this RN unable to reach vascular access at this time. Instructed to keep calling and pull central line supplies and place at bedside. Completed as ordered.
[2022-07-20 07:50] LABS: Influenza A QL RT-PCR Negative (Negative); Influenza B QL RT-PCR Negative (Negative); SARS-CoV-2 RNA PCR Negative
[2022-07-20] MEDS: SODIUM CHLORIDE 0.9% IV 500 ML 999 ML IV CONT (08:24)
[2022-07-20] MEDS: SODIUM CHLORIDE 0.9% IV 1,000 ML 250 ML IV CONT (11:15)
--- NOTE | 2022-07-20 12:20 | WPDCNINT ---
Assessment and Plan Assessment and plan (1) Septic shock: Code(s): A41.9 - Sepsis, unspecified organism; R65.21 - Severe sepsis with septic shock Status: Acute Assessment and Plan: Patient presented with hypotension elevated WBC although she is not very symptomatic Hypotension could be exacerbated by dehydration Chest x-ray shows persistent infiltrates in right lung which may be pneumonia Patient also may have peritonitis although she denies any abdominal pain Check lactic acid level Blood cultures are pending Hold further crystalloid IV fluids Add 25% albumin Levophed infusion to maintain blood pressure if needed Will request Nephrology for peritoneal fluid analysis Will check orthostatic blood pressure once patient is feeling little better (2) Peritonitis: Code(s): K65.9 - Peritonitis, unspecified Status: Acute Assessment and Plan: See above (3) Pneumonia: Code(s): J18.9 - Pneumonia, unspecified organism Status: Acute Assessment and Plan: See above (4) Diabetes mellitus: Onset Date: ~1995 Qualifiers: Diabetes mellitus complication status: without complication Diabetes mellitus termite control representative insulin use: without termite control representative use Diabetes mellitus type: type 2 Qualified Code(s): E11.9 - Type 2 diabetes mellitus without complications Code(s): E11.9 - Type 2 diabetes mellitus without complications Status: Chronic Assessment and Plan: Sliding scale insulin (5) End-stage renal disease on peritoneal dialysis: Code(s): N18.6 - End stage renal disease; Z99.2 - Dependence on renal dialysis Status: Chronic Assessment and Plan: Consult nephrology for PD (6) Fall: Code(s): W19.XXXA - Unspecified fall, initial encounter Status: Acute Assessment and Plan: Appears to be secondary to orthostatic hypotension Head CT IMPRESSION: 1. 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 Evaluation limited by motion and streak artifact from overlying catheter. 2:? Chronic right lacunar infarction. CT C-spine IMPRESSION: 1. No acute fracture. 2: Severe cervical spondylosis with significant progression since prior study. Will check orthostatic vitals once patient is hemodynamically stabilized Will also consult PT OT Plan DVT prophylaxis -Lovenox Stress ulcer prophylaxis -patient is on PPI Nutrition -renal diet Code Status -I spoke to patient in detail and patient wishes to be DNR DNI which I have confirmed with the patient. Total Critical Care Time - 35 minutes Due to a high probability of clinically significant, life threatening deterioration, the patient required my highest level of preparedness to intervene emergently and I personally spent this critical care time directly and personally managing the patient. This critical care time included obtaining a history; examining the patient; pulse oximetry; ordering and review of studies; arranging urgent treatment with development of a management plan; evaluation of patient's response to treatment; frequent reassessment; and discussions with other providers. It was exclusive of separately billable procedures and treating other patients and teaching time. Please see Assessment and Plan section and the rest of the note for further information on patient assessment and treatment Machine Precision Engraver Consult Note Consult date: 07/20/22 Reason for consult: Sepsis, shock, abdominal pain HPI: Shantelle Salinas is a 66 year old female with polycystic kidney disease on peritoneal dialysis, hypertension, hypothyroidism, diabetes, and GERD who presented to the emergency department for evaluation of fall and weakness. Was just discharged from hospital on 07/16. She states that today she got up and felt dizzy and lightheaded and fell. She hit her head did not lose her consciousness. She denies any d
--- NOTE | 2022-07-20 12:37 | P.CONNP_ITS ---
Assessment and Plan Assessment and plan (1) End stage renal disease: Code(s): N18.6 - End stage renal disease Status: Chronic Assessment and Plan: * continue nightly CCPD * follow electrolytes, volume status, and clearance (2) Septic shock: Code(s): A41.9 - Sepsis, unspecified organism; R65.21 - Severe sepsis with septic shock Status: Acute Assessment and Plan: * noted to be hypotensive on presentation * responsive to IVF resuscitation at this time * WBC and CRP elevated * etiology not clear * possible pneumonia * doubt peritonitis given recent admission but will evaluate * follow-up on culture data * vasopressor therapy if needed * empiric antibiotics (3) Pneumonia: Code(s): J18.9 - Pneumonia, unspecified organism Status: Acute Assessment and Plan: * chest x-ray shows persistent infiltrates in the right lung * follow culture data * on antibiotics (4) Right flank pain: Code(s): R10.9 - Unspecified abdominal pain Status: Acute Assessment and Plan: * extensive work-up evaluation to date has been unrevealing * follow clinical symptoms (5) Anemia: Code(s): D64.9 - Anemia, unspecified Status: Chronic Assessment and Plan: * due to ESRD * will eventually need to start Epogen * follow trend of H/H (6) Diabetes mellitus: Onset Date: ~1995 Qualifiers: Diabetes mellitus complication status: without complication Diabetes mellitus fci insulin use: without land title examiner use Diabetes mellitus type: type 2 Qualified Code(s): E11.9 - Type 2 diabetes mellitus without complications Code(s): E11.9 - Type 2 diabetes mellitus without complications Status: Chronic Assessment and Plan: * follow accuchecks * glycemic control Long extensive discussion (greater than 20 minutes) with the patient as well as her at bedside with regard to the issues/problems currently including her hypotension and the concern for possible infection / sepsis as well as close monitoring and ongoing antibiotic therapy as well as follow up on pending test results. They both appeared to voice understanding. Will continue to follow. History of Present Illness Reason for Consult Consult date: 07/20/22 Reason for consult: end stage renal disease Chief Complaint Chief complaint: sepsis,abdominal pain,sbp History of Present Illness Narrative: The patient is a 66-year-old female with a past medical history as outlined below who presented to [facility] Emergency room via EMS for further evaluation of ongoing weakness. The patient was just recently hospitalized here at [facility] a few days ago after being admitted for atypical chest pain and right-sided abdominal pain. During that hospital stay, she was ruled out for acute coronary syndrome with a negative stress test although her right-sided abdominal pain was not fully explain. She was seen in consultation by both Gastroenterology as well as Urology and despite multiple imaging studies and interventions, no specific/clear etiology to this symptom was ever discovered. She was empirically treated with IV antibiotics on the assumption of peritonitis but her PD fluid cultures never grew out any organisms. She clinically improved with these interventions and was subsequently discharged. Since her recent discharge, she reports that she has been getting more and more weaker at home. She continued to do her peritoneal dialysis and take her home medications without any issue
--- NOTE | 2022-07-20 12:37 | PM.CNNEP ---
Assessment and Plan Assessment and plan (1) End stage renal disease: Code(s): N18.6 - End stage renal disease Status: Chronic Assessment and Plan: continue nightly CCPD follow electrolytes, volume status, and clearance (2) Septic shock: Code(s): A41.9 - Sepsis, unspecified organism; R65.21 - Severe sepsis with septic shock Status: Acute Assessment and Plan: noted to be hypotensive on presentation responsive to IVF resuscitation at this time WBC and CRP elevated etiology not clear possible pneumonia doubt peritonitis given recent admission but will evaluate follow-up on culture data vasopressor therapy if needed empiric antibiotics (3) Pneumonia: Code(s): J18.9 - Pneumonia, unspecified organism Status: Acute Assessment and Plan: chest x-ray shows persistent infiltrates in the right lung follow culture data on antibiotics (4) Right flank pain: Code(s): R10.9 - Unspecified abdominal pain Status: Acute Assessment and Plan: extensive work-up evaluation to date has been unrevealing follow clinical symptoms (5) Anemia: Code(s): D64.9 - Anemia, unspecified Status: Chronic Assessment and Plan: due to ESRD will eventually need to start Epogen follow trend of H/H (6) Diabetes mellitus: Onset Date: ~1995 Qualifiers: Diabetes mellitus complication status: without complication Diabetes mellitus long-term insulin use: without ferry terminal supervisor use Diabetes mellitus type: type 2 Qualified Code(s): E11.9 - Type 2 diabetes mellitus without complications Code(s): E11.9 - Type 2 diabetes mellitus without complications Status: Chronic Assessment and Plan: follow accuchecks glycemic control Long extensive discussion (greater than 20 minutes) with the patient as well as her at bedside with regard to the issues/problems currently including her hypotension and the concern for possible infection / sepsis as well as close monitoring and ongoing antibiotic therapy as well as follow up on pending test results. They both appeared to voice understanding. Will continue to follow. History of Present Illness Reason for Consult Consult date: 07/20/22 Reason for consult: end stage renal disease Chief Complaint Chief complaint: sepsis,abdominal pain,sbp History of Present Illness Narrative: The patient is a 66-year-old female with a past medical history as outlined below who presented to [facility] Emergency room via EMS for further evaluation of ongoing weakness. The patient was just recently hospitalized here at [facility] a few days ago after being admitted for atypical chest pain and right-sided abdominal pain. During that hospital stay, she was ruled out for acute coronary syndrome with a negative stress test although her right-sided abdominal pain was not fully explain. She was seen in consultation by both Gastroenterology as well as Urology and despite multiple imaging studies and interventions, no specific/clear etiology to this symptom was ever discovered. She was empirically treated with IV antibiotics on the assumption of peritonitis but her PD fluid cultures never grew out any organisms. She clinically improved with these interventions and was subsequently discharged. Since her recent discharge, she reports that she has been getting more and more weaker at home. She continued to do her peritoneal dialysis and take her home medications without any issues or problems. On the morning of admission, she noted dizziness and lightheadedness upon getting out of bed. She did apparently have a fall but did not lose consciousness or hit her head. After this incident, EMS was called and she required lift assistance to get up and was subsequent brought to the emergency room for further assessment. Workup and evaluation emergency room demonstrated the patient t
--- NOTE | 2022-07-20 12:45 | PC.NURSE ---
This patient, Shantelle Salinas, was admitted to Intensive Care Unit-4. Patient/family oriented to hospital policies and general routines including ID bracelet, bed and alarms, visiting hours, pain management, procedures, bathroom and other care routines, personal items, smoking policy, room service/diet, and visiting hours. Information on how to activate the Rapid Response Team has been discussed. Patient/Family are encouraged to report perceived risks to care and to ask questions if they do not understand what they are told or what they should do.
[2022-07-20 14:36] LABS: Glucose Point of Care 149 mg/dl (65-105)
--- NOTE | 2022-07-20 15:30 | PM.IMHP ---
H&P: HPI History of Present Illness Date/Time: 07/20/22 15:30 Chief Complaint: Weakness. Narrative: This is a pleasant 66-year-old female with polycystic kidney disease on peritoneal dialysis, hypertension, hypothyroidism, diabetes, and GERD who presented to the emergency department via EMS from home for evaluation of weakness. She is known to myself and the hospitalist service from a recent admission between 07/13/2022 and 07/16/2022 after presenting with complaints of atypical chest pain and right-sided abdominal/flank pain. She ruled out for acute coronary syndrome and Lexiscan was negative for ischemia and infarct. She was seen by both GI and Urology for right-sided abdominal/flank pain. The etiology of such remains unclear but it was thought that she could possibly have some bleeding in 1 of the cysts in her kidneys on the right side. She was empirically started on antibiotics and possible SBP though peritoneal fluid cultures were negative. Since that time she has been getting more and more weak. She states compliance with dialysis and her medications at home. Appetite has been okay and she denies nausea and vomiting. She has been having some loose stools but not in significant quantities and she denies blood and mucus in the stools. This morning she had a fall following lightheadedness and dizziness upon getting out of bed. She did hit her head but denies loss of consciousness. Emergency services were summoned for lift assist and she was brought in for evaluation. Workup in the ED was significant for a WBC of 21.9, CRP 11.4, lactic acid 1.4. She was hypotensive on arrival and was bolused with IV fluids, initially without a good response in her blood pressure. A central line was inserted however she has not required vasopressors as of yet. She was empirically started on aztreonam and vancomycin given sepsis picture though there is no clear source as of yet. At the time my evaluation she continues to have pain in the right mid flank and is even tender to palpation with light touch. She has had some chills but no fever or sweats. She urinates a small amount and denies dysuria. She has not noticed any rashes at the side of the pain. Chest x-ray shows infiltrates in the right long concerning for possible pneumonia as though she denies cough. Review of Systems Review of Systems: Twelve systems were reviewed and are negative except for as per HPI. [facility] Past Medical History Medical History Anemia of chronic disease Asthma Chronic back pain End-stage renal disease on peritoneal dialysis (06/2016) On transplant list Gastritis Gout Hypertension (1983) Hypothyroidism (acquired) Polycystic kidney disease Seasonal rhinitis Type 2 diabetes mellitus (1995) Vitamin D deficiency Surgical History Surgical History History of appendectomy (01/1980) History of cardiac catheterization History of cholecystectomy (04/1995) History of colonoscopy History of hernia repair History of partial hysterectomy (11/1993) History of tonsillectomy (06/1959) History of tubal ligation (06/1976) History of umbilical hernia repair (06/1979) Family History Family History Mother Family history of diabetes mellitus in first degree relative Polycystic kidney disease Heart disease Hypertension Father Family history of lung cancer Sibling Polycystic kidney disease Sibling Diabetes mellitus Heart disease Other Malignant neoplasm of prostate Social History Social History Social History: Surrogate medical decision maker: Brennon Chungt, spouse. Code status: Do not resuscitate. Smoking status: Never smoker Alcohol intake: never Substance use: never Substance use type: does not use Lack of Transportation: No Lack of
[2022-07-20 17:02] LABS: Glucose Point of Care 225 mg/dl (65-105)
[2022-07-20] MEDS: INSULIN ASPART (*BKC) 100 UNITS/ML SUB-Q (17:04)
[2022-07-20 21:13] LABS: Glucose Point of Care 215 mg/dl (65-105)
[2022-07-20] MEDS: GABAPENTIN 100 MG CAPSULE PO (22:23)
[2022-07-20] MEDS: TIZANIDINE HCL 2 MG TABLET PO (22:23)
[2022-07-20] MEDS: NOREPINEPHRINE 8 MG/D5W 250 ML 8 MG/250 ML BAG 9.38 MG IV CONT (23:10)
[2022-07-21] VITALS (30 sets, daily range): BP systolic 78–149; BP diastolic 45–66; PULSE 80–120; RESP 13–24; TEMP 36.3–37; O2SAT 94–98; BMI 27.5
[2022-07-21] MEDS: CENTRAL LINE FLUSH 10 ML IV PUSH ×3 (05:06→21:29)
[2022-07-21] MEDS: LEVOTHYROXINE SODIUM 12.5 MCG TABLET PO (05:06)
[2022-07-21] MEDS: AZTREONAM 1 GM in DEXTROSE 5% IN WATER 50 ML 100 ML IVPB (06:15)
[2022-07-21] MEDS: NOREPINEPHRINE 8 MG/D5W 250 ML 8 MG/250 ML BAG 33.75 MG IV CONT (06:45)
[2022-07-21 06:55] LABS: Hematocrit 28.5 % (37.0-47.0); Hemoglobin 8.9 g/dL (12.0-15.0); Mean Corpuscular HGB Conc 31.2 g/dl (32-36); Mean Corpuscular Hemoglobin 30.5 pg (26-34); Mean Corpuscular Volume 97.6 fl (80-100); Mean Platelet Volume 9.4 fl (7.4-10.4); Platelet Count Result 401 k/mm3 (150-375); Red Blood Count 2.92 M/mm3 (4.2-5.4); Red Cell Distribution Width 15.4 % (11.5-14.5); White Blood Count 21.5 K/mm3 (4.5-10.0)
[2022-07-21 07:08] LABS: Alanine Aminotransferase 17 U/L (6-35); Albumin Level 2.7 g/dL (3.5-5.1); Alkaline Phosphatase 154 U/L (38-126); Anion Gap 8 mmol/L (8-16); Aspartate Amino Transferase 21 U/L (14-36); Bilirubin,Total 0.4 mg/dL (0.2-1.3); Blood Urea Nitrogen 56 mg/dL (7-17); Calcium 8.5 mg/dL (8.4-10.2); Carbon Dioxide 19 mmol/L (22-30); Chloride 93 mmol/L (98-107); Estimated CRCL calculation 5 ml/min; Estimated Glomerular Filt Rate 4; Glucose 385 mg/dL (65-110); Magnesium 1.8 mg/dL (1.6-2.3); Potassium 3.8 mmol/L (3.4-5.0); Sodium 120 mmol/L (137-145)
[2022-07-21 07:35] LABS: Glucose Point of Care 385 mg/dl (65-105)
[2022-07-21 07:50] LABS: Vancomycin Random 17.2 ug/mL (10-20)
[2022-07-21] MEDS: INSULIN GLARGINE (*BKC) 100 UNITS/ML 15 UNITS SUB-Q (08:10)
[2022-07-21] MEDS: INSULIN ASPART (*BKC) 100 UNITS/ML SUB-Q ×2 (08:11→12:24)
[2022-07-21] MEDS: SEVELAMER CARBONATE 800 MG TABLET 5600 MG PO ×3 (08:18→17:17)
[2022-07-21] MEDS: VITAMIN B CMPLX/VIT C/FOLIC AC 1 CAPSULE 1 CAP PO (08:51)
[2022-07-21] MEDS: allopurinoL 150 MG TABLET PO (08:51)
[2022-07-21] MEDS: GABAPENTIN 100 MG CAPSULE PO ×3 (08:51→17:17)
[2022-07-21] MEDS: MIDODRINE HCL 10 MG TABLET PO ×3 (08:52→17:17)
[2022-07-21] MEDS: PANTOPRAZOLE SODIUM IV 40 MG VIAL IV PUSH (08:52)
[2022-07-21] MEDS: FLUTICASONE PROPIONATE 0.05% NA SPR 16 GM BTL (*BKC) 1 SPRAY NASAL ×2 (08:52→17:17)
[2022-07-21] MEDS: LIDOCAINE 5% PATCH 2 PATCH TOPICAL (08:52)
[2022-07-21] MEDS: CHOLECALCIFEROL 1,000 UNITS TABLET 2000 UNITS PO ×2 (08:52→17:17)
[2022-07-21] MEDS: PIOGLITAZONE HCL 30 MG TABLET PO (08:53)
--- NOTE | 2022-07-21 09:21 | WPDINTPN ---
Progress Note: A&P Assessment and Plan (1) Septic shock: Code(s): A41.9 - Sepsis, unspecified organism; R65.21 - Severe sepsis with septic shock Status: Acute Assessment and Plan: Patient presented with hypotension elevated WBC although she was not significantly symptomatic Hypotension could be exacerbated by dehydration Chest x-ray shows persistent infiltrates in right lung which may be pneumonia Patient also may have peritonitis although she denies any abdominal pain and fluid from gross appearance appeared clear this morning Patient is not having any diarrhea while in the hospital and CT did not show any colitis Check lactic acid and procalcitonin level Blood cultures are pending Hold further crystalloid IV fluids Continue 25% albumin Levophed infusion to maintain blood pressure will be continued Will send PD fluid for Gram stain culture and cell count Will check orthostatic blood pressure once patient is off of pressors Add hydrocortisone (2) Peritonitis: Code(s): K65.9 - Peritonitis, unspecified Status: Acute Assessment and Plan: See above (3) Pneumonia: Code(s): J18.9 - Pneumonia, unspecified organism Status: Acute Assessment and Plan: See above (4) Diabetes mellitus: Onset Date: ~1995 Qualifiers: Diabetes mellitus type: type 2 Diabetes mellitus long term care phlebotomist insulin use: without long term care phlebotomist use Diabetes mellitus complication status: without complication Qualified Code(s): E11.9 - Type 2 diabetes mellitus without complications Code(s): E11.9 - Type 2 diabetes mellitus without complications Status: Chronic Assessment and Plan: Sliding scale insulin Add Lantus (5) End-stage renal disease on peritoneal dialysis: Onset Date: 06/2016 Code(s): N18.6 - End stage renal disease; Z99.2 - Dependence on renal dialysis Status: Chronic Assessment and Plan: Nephrology consulted for PD (6) Fall: Code(s): W19.XXXA - Unspecified fall, initial encounter Status: Acute Assessment and Plan: Appears to be secondary to orthostatic hypotension Head CT IMPRESSION: 1. 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 Evaluation limited by motion and streak artifact from overlying catheter. 2:? Chronic right lacunar infarction. CT C-spine IMPRESSION: 1. No acute fracture. 2: Severe cervical spondylosis with significant progression since prior study. Will check orthostatic vitals once patient is hemodynamically stabilized and off pressors Will also consult eventually consult PT OT (7) Hip pain: Code(s): M25.559 - Pain in unspecified hip Status: Acute Assessment and Plan: CT showed IMPRESSION: 1. Moderate left hip osteoarthritis. 2. Severe left trochanteric bursitis with fluid collection measuring 8.4 x 2.4 x 12.0 cm. No a fracture but patient has a large bursitis and is tender at the lateral aspect of her left hip Will request and Radiology for CT-guided drainage and also consult Orthopedics Plan DVT prophylaxis -Lovenox Stress ulcer prophylaxis -patient is on PPI Nutrition -renal diet Code Status -I spoke to patient in detail on presentation and patient wishes to be DNR DNI which I have confirmed with the patient. Total Critical Care Time - 35 minutes Due to a high probability of clinically significant, life threatening deterioration, the patient required my highest level of preparedness to intervene emergently and I personally spent this critical care time directly and personally managing the patient. This critical care time included obtaining a history; examining the patient; pulse oximetry; ordering and review of studies; arranging urgent treatment with development of a management plan; evaluation of patient's response to treatment; frequent reassessment; and discussions with other providers.
--- NOTE | 2022-07-21 10:00 | PM.IMPN ---
Progress Note: A&P Assessment and Plan (1) Septic shock: Code(s): A41.9 - Sepsis, unspecified organism; R65.21 - Severe sepsis with septic shock Status: Acute Assessment and Plan: Septic shock present on admission with hypotension, tachycardic, elevated WBC and elevated CRP. CXR shows persistent infiltrates in right lung which may be pneumonia BCx collected. Patient also may have peritonitis although she denies any abdominal pain Started on IV abx. Treated with IV fluids. Albumin added. Levophed infusion to maintain blood pressure if needed Wean Levophed as BP toelrates. (2) Hip pain: Code(s): M25.559 - Pain in unspecified hip Status: Acute Assessment and Plan: Hip CT showing severe left trochenteric bursitis with large fluid collection at 8.4x12cm. Discussed with ballistics professor. Could be hematoma. Plan to have this drained and for ortho consult. Could be the source of her sepsis. (3) Pneumonia: Code(s): J18.9 - Pneumonia, unspecified organism Status: Acute Assessment and Plan: CXR showing persistent right mid and lower lung field infiltrates. Not treated with abx last admission (07/13-07/16). Abx started here. Cultures ordered. Add sputum. (4) Peritonitis: Code(s): K65.9 - Peritonitis, unspecified Status: Acute Assessment and Plan: Peritoneal fluid collected and pending. As above (5) Diabetes mellitus: Onset Date: ~1995 Qualifiers: Diabetes mellitus complication status: without complication Diabetes mellitus leather goods maker insulin use: without leather goods maker use Diabetes mellitus type: type 2 Qualified Code(s): E11.9 - Type 2 diabetes mellitus without complications Code(s): E11.9 - Type 2 diabetes mellitus without complications Status: Chronic Assessment and Plan: The patient's blood glucose was reviewed on 07/21 Glucose remains well controlled. Continue AccuCheks covering with sliding scale. Hypoglycemia protocol available as needed. Change to diabetic diet. (6) End-stage renal disease on peritoneal dialysis: Onset Date: 06/2016 Code(s): N18.6 - End stage renal disease; Z99.2 - Dependence on renal dialysis Status: Chronic Assessment and Plan: Consult nephrology for PD. Continue PD per their recommendations (7) Fall: Code(s): W19.XXXA - Unspecified fall, initial encounter Status: Acute Assessment and Plan: Appears to be secondary to orthostatic hypotension/sepsis. Cervical spine CT showing no acute fiindings. HCT showing extra soft tissue in the left posterior parietal region with associated calcification, suspicious for chronic subdural or subarachnoid hematoma. Evaluation limited by motion and streak artifact from overlying catheter. Will check orthostatic vitals once patient is hemodynamically stabilized. PT OT Plan DVT prophylaxis -Lovenox Stress ulcer prophylaxis -patient is on PPI Nutrition -renal diab diet Code Status -DNR Subjective Date/time seen: 07/21/22 10:00 Interval history: 66yo female with PCKD on peritoneal dialysis, HTN and DM who presented to the emergency department via EMS from home for evaluation of weakness.? Feels weak today. Complaining of slight neck pain and left knee pain from a fall. He also has some skin tears on left forearm. She denies any chest pain but does feel slightly short of breath. She has a nonproductive cough. No abdominal pain but continues to have the right flank pain that feels as if it is burning. Exam Narrative: AF 97.4 133/59 115 24 98% ra Gen - NARD lying semi-recumbent in bed Chest - CTA bilaterally, nml RR CV - RRR S1/S2 Abd - Soft, NT/ND, Positive BS. Pain along the right lower rib cage without overlying skin findings. PD cath site clean and dry Ext - No pedal edema. left femoral line in place. Neuro - Alert and oriented. Nonfocal exam. Psych - Nml mood and affect Ski
[2022-07-21 10:32] LABS: Appearance Peritoneal Fluid Clear (Clear); Color Peritoneal Fluid Colorless (Colorless); Lymphocytes Peritoneal Fluid 20 %; Macrophages Peritoneal Fluid 80 %; Nucleated Cells Peritoneal Flu 0 /uL (0-500); RBC Peritoneal Fluid 1 /uL (0-100000); Source Peritoneal Fluid Peritoneal Fluid
--- NOTE | 2022-07-21 11:16 | PM.PNNEP ---
Progress Note: A&P Assessment and Plan (1) End stage renal disease: Code(s): N18.6 - End stage renal disease Status: Chronic Assessment and Plan: continue nightly CCPD follow electrolytes, volume status, and clearance (2) Septic shock: Code(s): A41.9 - Sepsis, unspecified organism; R65.21 - Severe sepsis with septic shock Status: Acute Assessment and Plan: noted to be hypotensive on presentation initially somewhat responsive to IVF resuscitation however, eventually required vasopressor support WBC and CRP elevated etiology not clear possible pneumonia doubt peritonitis given recent admission and PD fluid results follow-up on culture data empiric antibiotics (3) Hyponatremia: Code(s): E87.1 - Hypo-osmolality and hyponatremia Status: Acute Assessment and Plan: due to ESRD coupled with previous aggressive IVF hydration possible contributions from pneumonia(?) will try more aggressive fluid removal with dialysis as tolerated by hemodynamics follow trend of sodiunm (4) Pneumonia: Code(s): J18.9 - Pneumonia, unspecified organism Status: Acute Assessment and Plan: chest x-ray shows persistent infiltrates in the right lung follow culture data on antibiotics (5) Right flank pain: Code(s): R10.9 - Unspecified abdominal pain Status: Acute Assessment and Plan: extensive work-up evaluation to date has been unrevealing follow clinical symptoms (6) Anemia: Code(s): D64.9 - Anemia, unspecified Status: Chronic Assessment and Plan: due to ESRD start Epogen follow trend of H/H (7) Diabetes mellitus: Onset Date: ~1995 Qualifiers: Diabetes mellitus type: type 2 Diabetes mellitus fpc insulin use: without middle or intermediate school principal use Diabetes mellitus complication status: without complication Qualified Code(s): E11.9 - Type 2 diabetes mellitus without complications Code(s): E11.9 - Type 2 diabetes mellitus without complications Status: Chronic Assessment and Plan: follow accuchecks glycemic control Will continue to follow. Subjective Date/time seen: 07/21/22 11:16 Tolerated peritoneal dialysis treatment overnight without any issue or problems; remains on levophed gtt for maintain MAP/blood pressure; overall, she states she feels significantly better; major complaint is that of left hip pain following her fall yesterday; no other apparent distress noted at the time of my visit. Exam Narrative: General: WD/WN female in NAD Heart: normal S1 and S2; no rub Lungs: clear anteriorly Abdomen: soft, nontender, nondistended, positive bowel sounds Extremities: no edema Skin: warm and dry Objective Data Vital Signs Vital Signs: Vital Signs Temp Pulse Resp BP Pulse Ox O2 Del Method 07/21/22 10:00 98 F 96 16 139/66 07/21/22 10:00 96 07/21/22 10:30 93 122/56 L 07/21/22 10:00 99 139/66 07/21/22 09:30 106 H 135/59 L 07/21/22 09:00 105 H 115/61 07/21/22 08:30 110 H 149/52 H 07/21/22 08:00 110 H 24 H 98 Room Air 07/21/22 08:00 110 H 07/21/22 07:45 98.6 F 98 16 121/58 L 07/21/22 08:15 115 H 133/59 L 07/21/22 08:00 115 H 115/57 L 07/21/22 07:49 97.4 F L 110 H 24 H 124/60 98 07/21/22 06:45 113 H 105/52 L 07/21/22 06:45 113 H 105/52 L 07/21/22 06:02 104 H 120/51 L 07/21/22 06:00 97.7 F 101 H 15 120/51 L 96 07/21/22 06:00 102 H 07/21/22 05:32 109 H 121/59 L 07/21/22 05:06 120 H 111/54 L 07/21/22 04:16 112 H 17 96/52 L 94 07/21/22 04:00 102 H 07/21/22 04:02 103 H 81/48 L 07/21/22 03:55 103 H 78/45 L 07/21/22 04:00 97.5 F L 111 H 15 81/48 L 96 07/21/22 04:00 103 H 19 97 Room Air 07/21/22 03:47 103 H 78/45 L 07/21/22 03:35 102 H 86/45 L 07/21
--- NOTE | 2022-07-21 11:16 | P.PNNP_ITS ---
Progress Note: A&P Assessment and Plan (1) End stage renal disease: Code(s): N18.6 - End stage renal disease Status: Chronic Assessment and Plan: * continue nightly CCPD * follow electrolytes, volume status, and clearance (2) Septic shock: Code(s): A41.9 - Sepsis, unspecified organism; R65.21 - Severe sepsis with septic shock Status: Acute Assessment and Plan: * noted to be hypotensive on presentation * initially somewhat responsive to IVF resuscitation * however, eventually required vasopressor support * WBC and CRP elevated * etiology not clear * possible pneumonia * doubt peritonitis given recent admission and PD fluid results * follow-up on culture data * empiric antibiotics (3) Hyponatremia: Code(s): E87.1 - Hypo-osmolality and hyponatremia Status: Acute Assessment and Plan: * due to ESRD coupled with previous aggressive IVF hydration * possible contributions from pneumonia(?) * will try more aggressive fluid removal with dialysis as tolerated by hemodynamics * follow trend of sodiunm (4) Pneumonia: Code(s): J18.9 - Pneumonia, unspecified organism Status: Acute Assessment and Plan: * chest x-ray shows persistent infiltrates in the right lung * follow culture data * on antibiotics (5) Right flank pain: Code(s): R10.9 - Unspecified abdominal pain Status: Acute Assessment and Plan: * extensive work-up evaluation to date has been unrevealing * follow clinical symptoms (6) Anemia: Code(s): D64.9 - Anemia, unspecified Status: Chronic Assessment and Plan: * due to ESRD * start Epogen * follow trend of H/H (7) Diabetes mellitus: Onset Date: ~1995 Qualifiers: Diabetes mellitus type: type 2 Diabetes mellitus terminal make up operator insulin use: without terminal make up operator use Diabetes mellitus complication status: without complication Qualified Code(s): E11.9 - Type 2 diabetes mellitus without complications Code(s): E11.9 - Type 2 diabetes mellitus without complications Status: Chronic Assessment and Plan: * follow accuchecks * glycemic control Will continue to follow. Subjective Date/time seen: 07/21/22 11:16 Tolerated peritoneal dialysis treatment overnight without any issue or problems; remains on levophed gtt for maintain MAP/blood pressure; overall, she states she feels significantly better; major complaint is that of left hip pain following her fall yesterday; no other apparent distress noted at the time of my visit. Exam Narrative: General: WD/WN female in NAD Heart: normal S1 and S2; no rub Lungs: clear anteriorly Abdomen: soft, nontender, nondistended, positive bowel sounds Extremities: no edema Skin: warm and dry Objective Data Vital Signs Vital Signs: Vital Signs Temp Pulse Resp BP Pulse Ox O2 Del Method 07/21/22 10:00 98 F 96 16 139/66 07/21/22 10:00 96 07/21/22 10:30 93 122/56 L 07/21/22 10:00 99 139/66 07/21/22 09:30 106 H 135/59 L 07/21/22 09:00 105 H 115/61 07/21/22 08:30 110 H 149/52 H 07/21/22 08:00 110 H 24 H 98 Room Air 07/21/22 08:00 110 H 07/21/22 07:45 98.6 F 98 16 121/58 L 07/21/22 08:15 115 H 133/59 L
[2022-07-21 11:18] LABS: Lactic Acid Reflex 1.8 mmol/L (0.7-2.0)
[2022-07-21] MEDS: ALBUMIN HUMAN 25% 25 GM/100 ML 100 ML IVPB ×2 (12:20→17:55)
[2022-07-21 12:27] LABS: Procalcitonin 2.6 ng/mL
[2022-07-21] MEDS: HYDROCORTISONE SODIUM SUCCINATE 100 MG/2 ML VIAL IV PUSH ×2 (13:57→21:29)
--- NOTE | 2022-07-21 15:48 | PM.CNOR ---
Assessment and Plan Assessment and plan (1) Hip pain: Code(s): M25.559 - Pain in unspecified hip Status: Acute (2) Trochanteric bursitis, left hip: Code(s): M70.62 - Trochanteric bursitis, left hip Status: Acute Plan Left hip pain. Pain in the left hip started after a fall on Monday07/20/22 in the AM at home. She fell getting out of bed and went straight down onto her bottom. Severe pain immediately after fall. She has not tried to get up on it yet. No issues with that hip before the fall. No previous lateral hip pain or trouble sleeping on her side. She states she was sick at home and then she fell and had the pain. Fluid collection at the trochanteric bursa was found after CT scan of the hip. Reviewed CT scan with Dr. Mcfarland. No fractures. She does have moderate hip joint arthritis. Fluid was drained and sent for cultures. She has a drain placed currently with about 200 cc of serosanguineous fluid in drain. Patient was discharged from the hospital 3 days prior to her fall for chest pain and abdominal pain. She has a significant medical history including polycystic kidney disease on peritoneal dialysis, hypertension, hypothyroidism, diabetes, and GERD. Thank you for the consult. Will discuss with Dr. Mcfarland and continue to follow for culture results. No indication for surgery at this time. History of Present Illness HPI Consult date: 07/22/22 Chief complaint: sepsis,abdominal pain,sbp Narrative: Pain in the left hip started after a fall on Monday07/20/22 in the AM at home. She fell getting out of bed and went straight down onto her bottom. Severe pain immediately after fall. She has not tried to get up on it yet. No issues with that hip before the fall. No previous lateral hip pain or trouble sleeping on her side. She states she was sick at home and then she fell and had the pain. Fluid collection at the trochanteric bursa was found after CT scan of the hip. No fractures. Fluid was drained and sent for cultures. She has a drain placed currently with about 200 cc of serosanguineous fluid in drain. [facility] Past Medical History Medical History Anemia of chronic disease Asthma Chronic back pain End-stage renal disease on peritoneal dialysis (06/2016) On transplant list Gastritis Gout Hypertension (1983) Hypothyroidism (acquired) Polycystic kidney disease Seasonal rhinitis Type 2 diabetes mellitus (1995) Vitamin D deficiency Surgical History Surgical History History of appendectomy (01/1980) History of cardiac catheterization History of cholecystectomy (04/1995) History of colonoscopy History of hernia repair History of partial hysterectomy (11/1993) History of tonsillectomy (06/1959) History of tubal ligation (06/1976) History of umbilical hernia repair (06/1979) Family History Family History Mother Family history of diabetes mellitus in first degree relative Polycystic kidney disease Heart disease Hypertension Father Family history of lung cancer Sibling Polycystic kidney disease Sibling Diabetes mellitus Heart disease Other Malignant neoplasm of prostate Social History Social History Social History: Surrogate medical decision maker: Brennon Salinas, spouse. Code status: Do not resuscitate. Smoking status: Never smoker Alcohol intake: never Substance use: never Substance use type: does not use Lack of Transportation: No Lack of Food: Never True Current Housing: I Have Housing Concerned About Future Housing: No Difficulty Paying Gas/Electric Bills: No Difficulty Paying for Meds: No Currently Unemployed: No Education: Grade School Difficulty w/ Childcare or Family Care: No Living arrangements: with family Stephani kan
[2022-07-21 16:32] LABS: Free T4 Free Thyroxine Reflex 1.01 ng/dL (0.78-2.19)
[2022-07-21 16:55] LABS: Glucose Point of Care 107 mg/dl (65-105)
[2022-07-21 17:05] LABS: Glucose Point of Care 260 mg/dl (65-105)
[2022-07-21 19:12] LABS: Total Triiodothyronine (T3) 0.66 NG/ML (0.97-1.69)
[2022-07-21] MEDS: EPOETIN ALFA-EPBX 20,000 UNITS/ML VIAL 20000 UNITS SUB-Q (21:28)
[2022-07-21 21:39] LABS: Glucose Point of Care 289 mg/dl (65-105)
[2022-07-22] VITALS (15 sets, daily range): BP systolic 102–137; BP diastolic 50–88; PULSE 62–96; RESP 12–20; TEMP 36.3–37; O2SAT 95–100
[2022-07-22] MEDS: ALBUMIN HUMAN 25% 25 GM/100 ML 100 ML IVPB ×2 (00:34→06:36)
[2022-07-22] MEDS: AZTREONAM 1 GM in DEXTROSE 5% IN WATER 50 ML 100 ML IVPB (06:36)
[2022-07-22] MEDS: HYDROCORTISONE SODIUM SUCCINATE 100 MG/2 ML VIAL IV PUSH ×2 (06:36→13:51)
[2022-07-22] MEDS: CENTRAL LINE FLUSH 10 ML IV PUSH ×3 (06:36→21:09)
[2022-07-22] MEDS: LEVOTHYROXINE SODIUM 12.5 MCG TABLET PO (06:37)
[2022-07-22 06:56] LABS: Hematocrit 25.3 % (37.0-47.0); Hemoglobin 8.1 g/dL (12.0-15.0); Mean Corpuscular Volume 96.9 fl (80-100); Platelet Count Result 303 k/mm3 (150-375); Red Blood Count 2.61 M/mm3 (4.2-5.4); Red Cell Distribution Width 15.2 % (11.5-14.5); White Blood Count 13.7 K/mm3 (4.5-10.0)
[2022-07-22 07:22] LABS: Alanine Aminotransferase 14 U/L (6-35); Alkaline Phosphatase 72 U/L (38-126); Anion Gap 12 mmol/L (8-16); Aspartate Amino Transferase 28 U/L (14-36); Bilirubin,Total 0.6 mg/dL (0.2-1.3); Blood Urea Nitrogen 59 mg/dL (7-17); Calcium 8.5 mg/dL (8.4-10.2); Carbon Dioxide 18 mmol/L (22-30); Chloride 94 mmol/L (98-107); Estimated CRCL calculation 6 ml/min; Estimated Glomerular Filt Rate 5; Glucose 315 mg/dL (65-110); Potassium 4.1 mmol/L (3.4-5.0); Sodium 124 mmol/L (137-145)
--- NOTE | 2022-07-22 07:39 | PM.IMPN ---
Progress Note: A&P Assessment and Plan (1) Septic shock: Code(s): A41.9 - Sepsis, unspecified organism; R65.21 - Severe sepsis with septic shock Status: Acute Assessment and Plan: Septic shock present on admission with hypotension, tachycardic, elevated WBC and elevated CRP.?Hypotension could be exacerbated by dehydration. CXR shows persistent infiltrates in right lung which may be pneumonia BCx NGTD. Patient also may have peritonitis although fluid not consistent with this. Consider left trochanteric bursitis Continue IV abx. Treated with IV fluids and Albumin. Solu-Cortef started. Levophed infusion to maintain blood pressure if needed Weaned off Levophed 07/21. midodrine added. Wean hydrocortisone (2) Pneumonia: Code(s): J18.9 - Pneumonia, unspecified organism Status: Acute Assessment and Plan: CXR showing persistent right mid and lower lung field infiltrates. Not treated with abx last admission (07/13-07/16). Abx started here. Cultures ordered and are pending. Remains on room air (3) Trochanteric bursitis, left hip: Code(s): M70.62 - Trochanteric bursitis, left hip Status: Acute Assessment and Plan: CT scan of the hip showed Severe left trochanteric bursitis with fluid collection measuring 8.4 x 2.4 x 12.0 cm. Close to 200 mL of fluid was removed. Culture sent and are pending. Discussed with orthopedics. Fluid collection may be relate to to her peritoneal dialysis. Follow up on cultures. Continue vancomycin and aztreonam (4) Hip pain: Code(s): M25.559 - Pain in unspecified hip Status: Acute Assessment and Plan: Hip CT showing moderate left hip OA and severe left trochenteric bursitis with large fluid collection at 8.4x12cm. Discussed with ortho. Could be fluid collection related to PD. Mary in place. Follow up on cultures. Could be the source of her sepsis. (5) Peritonitis: Code(s): K65.9 - Peritonitis, unspecified Status: Acute Assessment and Plan: Peritoneal fluid showing no WBC and 1 RBC. Doubt peritonitis. Lower abdominal pain related to hip pain. Follow (6) Diabetes mellitus: Onset Date: ~1995 Qualifiers: Diabetes mellitus complication status: without complication Diabetes mellitus custodial insulin use: without intermediate card tender use Diabetes mellitus type: type 2 Qualified Code(s): E11.9 - Type 2 diabetes mellitus without complications Code(s): E11.9 - Type 2 diabetes mellitus without complications Status: Chronic Assessment and Plan: The patient's blood glucose was reviewed on 07/22 Glucose poorly controlled related to steroids.? Continue AccuCheks covering with sliding scale.? Hypoglycemia protocol available as needed.? Continue diabetic diet. Lantus added. (7) End-stage renal disease on peritoneal dialysis: Onset Date: 06/2016 Code(s): N18.6 - End stage renal disease; Z99.2 - Dependence on renal dialysis Status: Chronic Assessment and Plan: Nephrology following for PD. Continue PD per their recommendations (8) Fall: Code(s): W19.XXXA - Unspecified fall, initial encounter Status: Acute Assessment and Plan: Cervical spine CT showing no acute findings. 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 Evaluation limited by motion and streak artifact from overlying catheter. Will check orthostatic vitals once patient is hemodynamically stabilized. Continue ?PT OT (9) Abdominal pain: Code(s): R10.9 - Unspecified abdominal pain Status: Acute Assessment and Plan: Mild tenderness in hypogastric area yesterday but improved today. CT abdomen pelvis was unremarkable. (10) Hyponatremia: Code(s): E87.1 - Hypo-osmolality and hyponatremia Status: Acute Assessment and Mirian
[2022-07-22 08:34] LABS: Glucose Point of Care 314 mg/dl (65-105)
[2022-07-22] MEDS: INSULIN GLARGINE (*BKC) 100 UNITS/ML 15 UNITS SUB-Q (08:36)
[2022-07-22] MEDS: INSULIN ASPART (*BKC) 100 UNITS/ML SUB-Q ×3 (08:36→16:49)
[2022-07-22] MEDS: PIOGLITAZONE HCL 30 MG TABLET PO (08:39)
[2022-07-22] MEDS: VITAMIN B CMPLX/VIT C/FOLIC AC 1 CAPSULE 1 CAP PO (08:39)
[2022-07-22] MEDS: MIDODRINE HCL 10 MG TABLET PO ×3 (08:39→17:56)
[2022-07-22] MEDS: PANTOPRAZOLE SODIUM IV 40 MG VIAL IV PUSH (08:39)
[2022-07-22] MEDS: GABAPENTIN 100 MG CAPSULE PO ×3 (08:40→17:56)
[2022-07-22] MEDS: FLUTICASONE PROPIONATE 0.05% NA SPR 16 GM BTL (*BKC) 1 SPRAY NASAL ×2 (08:40→17:55)
[2022-07-22] MEDS: LIDOCAINE 5% PATCH 2 PATCH TOPICAL (08:40)
[2022-07-22] MEDS: allopurinoL 150 MG TABLET PO (08:41)
[2022-07-22] MEDS: CHOLECALCIFEROL 1,000 UNITS TABLET 2000 UNITS PO ×2 (08:41→17:55)
[2022-07-22] MEDS: SEVELAMER CARBONATE 800 MG TABLET 5600 MG PO ×3 (08:44→17:57)
[2022-07-22] MEDS: EPOETIN ALFA-EPBX 10,000 UNITS/ML VIAL 10000 UNITS SUB-Q (08:52)
--- NOTE | 2022-07-22 09:31 | WPDINTPN ---
Progress Note: A&P Assessment and Plan (1) Septic shock: Code(s): A41.9 - Sepsis, unspecified organism; R65.21 - Severe sepsis with septic shock Status: Acute Assessment and Plan: Patient presented with hypotension elevated WBC although she was not significantly symptomatic Hypotension could be exacerbated by dehydration Chest x-ray shows persistent infiltrates in right lung which may be pneumonia but patient had no respiratory symptoms Patient also may have peritonitis although she denies any abdominal pain and fluid was negative for any signs of infection Patient is not having any diarrhea while in the hospital and CT did not show any colitis Normal lactic acid and procalcitonin level was 2.6 Blood cultures are negative till now Hold further crystalloid IV fluids Will discontinue 25% albumin Levophed infusion to maintain blood pressure has been weaned off Left trochanteric bursitis and cultures pending Continue vancomycin and aztreonam Wean hydrocortisone Her WBCs improving and she is afebrile (2) Peritonitis: Code(s): K65.9 - Peritonitis, unspecified Status: Acute Assessment and Plan: See above (3) Pneumonia: Code(s): J18.9 - Pneumonia, unspecified organism Status: Acute Assessment and Plan: See above (4) Diabetes mellitus: Onset Date: ~1995 Qualifiers: Diabetes mellitus complication status: without complication 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 insulin use: without middle or intermediate school principal use Diabetes mellitus type: type 2 Qualified Code(s): E11.9 - Type 2 diabetes mellitus without complications Code(s): E11.9 - Type 2 diabetes mellitus without complications Status: Chronic Assessment and Plan: Sliding scale insulin Add Lantus (5) End-stage renal disease on peritoneal dialysis: Onset Date: 06/2016 Code(s): N18.6 - End stage renal disease; Z99.2 - Dependence on renal dialysis Status: Chronic Assessment and Plan: PD per Nephrology (6) Fall: Code(s): W19.XXXA - Unspecified fall, initial encounter Status: Acute Assessment and Plan: Appears to be secondary to orthostatic hypotension Head CT IMPRESSION: 1. 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 Evaluation limited by motion and streak artifact from overlying catheter. 2:? Chronic right lacunar infarction. CT C-spine IMPRESSION: 1. No acute fracture. 2: Severe cervical spondylosis with significant progression since prior study. Will check orthostatic vitals once patient is hemodynamically stabilized Will also consult PT OT (7) Hip pain: Code(s): M25.559 - Pain in unspecified hip Status: Acute Assessment and Plan: CT showed ?IMPRESSION: 1. Moderate left hip osteoarthritis. 2. Severe left trochanteric bursitis with fluid collection measuring 8.4 x 2.4 x 12.0 cm. No a fracture but patient has a large bursitis and is tender at the lateral aspect of her left hip (8) Trochanteric bursitis, left hip: Code(s): M70.62 - Trochanteric bursitis, left hip Status: Acute Assessment and Plan: CT scan of the hip showed Severe left trochanteric bursitis with fluid collection measuring 8.4 x 2.4 x 12.0 cm. In light of pain and sepsis I consulted Orthopedics and requested IR to drain the bursa Close to 200 mL fluid has been drained Cultures have been sent and are pending Continue vancomycin and aztreonam (9) Abdominal pain: Code(s): R10.9 - Unspecified abdominal pain Status: Acute Assessment and Plan: Mild tenderness in hypogastric area. Straight catheterization patient and check UA for any evidence infection A CT abdomen pelvis was unremarkable Plan DVT prophylaxis -Lovenox Stress ulcer prophylaxis -patient is on PPI Nutrition -renal diet Code Status -I spoke to patient in detail and patient wishes to
[2022-07-22 11:43] LABS: Appearance Urine Slightly Cloudy (Clear); Bilirubin Urine Negative (Negative); Blood Urine 2+ (Negative); Color Urine Yellow (Yellow); Glucose Urine UA Trace mg/dL (Negative); Ketones Urine Negative (Negative); Leukocyte Esterase Ur 2+ LEU/UL (Negative); Nitrate Urine Negative (Negative); Protein Urine 2+ mg/dL (Negative); Specific Grav Ur 1.015 (1.001-1.035); Urobilinogen Urine 0.2 mg/dL (<2.0); pH Urine 5.5 (5.0-9.0)
[2022-07-22 11:46] LABS: Glucose Point of Care 364 mg/dl (65-105)
[2022-07-22 11:46] LABS: Bacteria Urine Trace /hpf; Squamous Epithelial Cell Urine Moderate /hpf (Few); WBC Urine 31-50 /hpf
[2022-07-22 11:49] LABS: Add Urine Microscopic? YES
--- NOTE | 2022-07-22 14:22 | P.PNNP_ITS ---
Progress Note: A&P Assessment and Plan (1) End stage renal disease: Code(s): N18.6 - End stage renal disease Status: Chronic Assessment and Plan: * continue nightly CCPD * 1474 removed overnight with machine. * fluid clear and flows good. * cell count okay on 07/21 (2) Septic shock: Code(s): A41.9 - Sepsis, unspecified organism; R65.21 - Severe sepsis with septic shock Status: Acute Assessment and Plan: * noted to be hypotensive on presentation * initially somewhat responsive to IVF resuscitation * however, eventually required vasopressor support * WBC and CRP elevated * possibly the fluid collection? pneumonia? * follow-up on culture data * on aztreo. (3) Hyponatremia: Code(s): E87.1 - Hypo-osmolality and hyponatremia Status: Acute Assessment and Plan: * due to dilution. * sodium improved. * she drinks a lot. will mildly fluid restrict. (4) Pneumonia: Code(s): J18.9 - Pneumonia, unspecified organism Status: Acute Assessment and Plan: * chest x-ray shows persistent infiltrates in the right lung * abscess culture pending * bladder catheterized. 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 Subjective Date/time seen: 07/22/22 14:22 Interval history: patient feels better. no belly pain. no fever or chills. eating oaky Exam Narrative: General: WD/WN female in NAD Heart: normal S1 and S2; no rub or gallop Lungs: clear anteriorly Abdomen: soft, nontender, nondistended, positive bowel sounds Extremities: no edema Skin: no rash Objective Data Vital Signs Vital Signs: Vital Signs - 24 hr 07/21/22 16:00 07/21/22 16:00 07/21/22 16:00 Temperature 98 F Pulse Rate 89 89 89 Respiratory Rate 18 18 Blood Pressure 123/58 L Pulse Oximetry 98 Oxygen Delivery Room Air 07/21/22 18:00 07/21/22 18:00 07/21/22 18:00 Temperature 98 F Pulse Rate 93 93 95 Respiratory Rate 20 20 Blood Pressure 129/56 L 129/56 L Pulse Oximetry 98 Oxygen Delivery Room Air 07/21/22 20:00 07/21/22 20:00 07/21/22 20:00 Temperature 98 F Pulse Rate 80 80 80 Respiratory Rate 13 13 Blood Pressure 114/55 L Pulse Oximetry 95 95 Oxygen Delivery Room Air 07/21/22 22:00 07/22/22 00:00 07/22/22 00:00 Temperature Pulse Rate 80
--- NOTE | 2022-07-22 14:22 | PM.PNNEP ---
Progress Note: A&P Assessment and Plan (1) End stage renal disease: Code(s): N18.6 - End stage renal disease Status: Chronic Assessment and Plan: continue nightly CCPD 1474 removed overnight with machine. fluid clear and flows good. cell count okay on 07/21 (2) Septic shock: Code(s): A41.9 - Sepsis, unspecified organism; R65.21 - Severe sepsis with septic shock Status: Acute Assessment and Plan: noted to be hypotensive on presentation initially somewhat responsive to IVF resuscitation however, eventually required vasopressor support WBC and CRP elevated possibly the fluid collection? pneumonia? follow-up on culture data on aztreo. (3) Hyponatremia: Code(s): E87.1 - Hypo-osmolality and hyponatremia Status: Acute Assessment and Plan: due to dilution. sodium improved. she drinks a lot. will mildly fluid restrict. (4) Pneumonia: Code(s): J18.9 - Pneumonia, unspecified organism Status: Acute Assessment and Plan: chest x-ray shows persistent infiltrates in the right lung abscess culture pending bladder catheterized. 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 Subjective Date/time seen: 07/22/22 14:22 Interval history: patient feels better. no belly pain. no fever or chills. eating oaky Exam Narrative: General: WD/WN female in NAD Heart: normal S1 and S2; no rub or gallop Lungs: clear anteriorly Abdomen: soft, nontender, nondistended, positive bowel sounds Extremities: no edema Skin: no rash Objective Data Vital Signs Vital Signs: Vital Signs - 24 hr 07/21/22 16:00 07/21/22 16:00 07/21/22 16:00 Temperature 98 F Pulse Rate 89 89 89 Respiratory Rate 18 18 Blood Pressure 123/58 L Pulse Oximetry 98 Oxygen Delivery Room Air 07/21/22 18:00 07/21/22 18:00 07/21/22 18:00 Temperature 98 F Pulse Rate 93 93 95 Respiratory Rate 20 20 Blood Pressure 129/56 L 129/56 L Pulse Oximetry 98 Oxygen Delivery Room Air 07/21/22 20:00 07/21/22 20:00 07/21/22 20:00 Temperature 98 F Pulse Rate 80 80 80 Respiratory Rate 13 13 Blood Pressure 114/55 L Pulse Oximetry 95 95 Oxygen Delivery Room Air 07/21/22 22:00 07/22/22 00:00 07/22/22 00:00 Temperature Pulse Rate 80 75 75 Respiratory Rate 13 13 Blood Pressure 116/60 Pulse Oximetry 95 95 Oxygen Delivery Room Air 07/22/22 00:00 07/22/22 02:00 07/22/22 04:00 Temperature 98.2 F Pulse Rate 75 79 74 Respiratory Rate 13 12 13 Blood Pressure 112/58 L 123/66 Pulse Oximetry 95 97 98 Oxygen Delivery Room Air 07/22/22 04:00 07/22/22 04:00 07/22/22 05:39 Temperature 98.4 F Pulse Rate 74 74 76 Respiratory Rate 12 14 Blood Pressure 123/66 110/58 L Pulse Oximetry 97 97 Oxygen Delivery 07/22/22 07:28 07/22/22 08:49 07/22/22 08:00 Temperature 98.4 F 97.9 F Pulse Rate 76 79 Respiratory Rate 14 14 Blood Pressure 110/58 L 127/61 Pulse Oximetry 97 100 Oxygen Delivery Room Air 07/22/22 10:00 07/22/22 12:00 07/22/22 10:00 Temperature 97.7 F Pulse Rate 96 81 96 Respiratory Rate 17 16
--- NOTE | 2022-07-22 16:27 | PM.CNOR ---
Assessment and Plan Assessment and plan (1) Trochanteric bursitis, left hip: Code(s): M70.62 - Trochanteric bursitis, left hip Status: Acute Assessment and Plan: Very pleasant 66-year-old female on peritoneal dialysis was admitted for evaluation of weakness. Complains of significant right abdominal and flank pain. Extensive workup ongoing. She has an elevated white count and CRP. She has been on IV antibiotics. Significant swelling in the soft tissues about the left hip was noted. The fluid mass near the trochanteric bursa observed on CT scan and fluid sample obtained. Concern that the left hip bursa fluid could be a potential source of infection. Cultures pending. Examination Patient pleasant. No distress. Alert oriented. Left hip has mild swelling and tenderness at the trochanteric bursa. More significant swelling with fluctuance and a fluid pocket proximal to the sciatic notch area. [id number] tenderness at the bursa and mild tenderness at the fluid swelling. Peritoneal dialysis catheters noted in the lower quadrant abdomen near this area. Contralateral hip has some tenderness also along the trochanteric bursa with some fluid in the posterior buttock flank area along the iliac wing. Some generalized soft tissue swelling noted in the thigh and knee. No warmth or erythema in these areas. CT scan shows significant soft tissue swelling about the left hip bursa and buttock area. Impression Soft tissue swelling and fluid collection about the left hip/ trochanteric bursa. Does not appear to be a source of infection at this time, as there is no erythema or warmth. The fluid may be from the peritoneal catheter or dependent soft tissue edema. No indication for surgical drainage. Possible repeat aspiration if cultures suggest infection. Thank you for the consultation. History of Present Illness HPI Consult date: 07/22/22 Chief complaint: sepsis,abdominal pain,sbp Review of Systems Review of Systems: All systems reviewed & are unremarkable except as noted in HPI and below PMFSH Past Medical History Medical History Anemia of chronic disease Asthma Chronic back pain End-stage renal disease on peritoneal dialysis (06/2016) On transplant list Gastritis Gout Hypertension (1983) Hypothyroidism (acquired) Polycystic kidney disease Seasonal rhinitis Type 2 diabetes mellitus (1995) Vitamin D deficiency Surgical History Surgical History History of appendectomy (01/1980) History of cardiac catheterization History of cholecystectomy (04/1995) History of colonoscopy History of hernia repair History of partial hysterectomy (11/1993) History of tonsillectomy (06/1959) History of tubal ligation (06/1976) History of umbilical hernia repair (06/1979) Family History Family History Mother Family history of diabetes mellitus in first degree relative Polycystic kidney disease Heart disease Hypertension Father Family history of lung cancer Sibling Polycystic kidney disease Sibling Diabetes mellitus Heart disease Other Malignant neoplasm of prostate Social History Social History Social History: Surrogate medical decision maker: Brennon Brad, spouse. Code status: Do not resuscitate. Smoking status: Never smoker Alcohol intake: never Substance use: never Substance use type: does not use Lack of Transportation: No Lack of Food: Never True Current Housing: I Have Housing Concerned About Future Housing: No Difficulty Paying Gas/Electric Bills: No Difficulty Paying for Meds: No Currently Unemployed: No Education: Grade School Difficulty w/ Childcare or Family Care: No Living arrangements: with family Additional living arrangements comment
[2022-07-22 16:46] LABS: Glucose Point of Care 298 mg/dl (65-105)
[2022-07-22] MEDS: HEPARIN SODIUM 5,000 UNITS/ML VIAL 5000 UNITS SUB-Q (21:09)
[2022-07-22] MEDS: HYDROCORTISONE SODIUM SUCCINATE 100 MG/2 ML VIAL 50 MG IV PUSH (21:09)
[2022-07-23] VITALS (23 sets, daily range): BP systolic 86–121; BP diastolic 38–79; PULSE 62–106; RESP 11–20; TEMP 35.8–36.4; O2SAT 95–100
[2022-07-23 00:30] LABS: Glucose Point of Care 385 mg/dl (65-105)
[2022-07-23 00:42] LABS: Glucose Point of Care 384 mg/dl (65-105)
[2022-07-23] MEDS: INSULIN ASPART (*BKC) 100 UNITS/ML 8 UNITS SUB-Q (01:07)
[2022-07-23] MEDS: LEVOTHYROXINE SODIUM 12.5 MCG TABLET PO (06:02)
[2022-07-23] MEDS: AZTREONAM 1 GM in DEXTROSE 5% IN WATER 50 ML 100 ML IVPB (06:02)
[2022-07-23] MEDS: CENTRAL LINE FLUSH 10 ML IV PUSH ×3 (06:03→20:08)
[2022-07-23 06:24] LABS: Hematocrit 30.3 % (37.0-47.0); Hemoglobin 9.7 g/dL (12.0-15.0); Mean Corpuscular Hemoglobin 31.2 pg (26-34); Mean Corpuscular Volume 97.4 fl (80-100); Mean Platelet Volume 9.5 fl (7.4-10.4); Platelet Count Result 360 k/mm3 (150-375); Red Blood Count 3.11 M/mm3 (4.2-5.4); Red Cell Distribution Width 15.5 % (11.5-14.5); White Blood Count 20.5 K/mm3 (4.5-10.0)
[2022-07-23 06:40] LABS: Alanine Aminotransferase 13 U/L (6-35); Alkaline Phosphatase 95 U/L (38-126); Anion Gap 8 mmol/L (8-16); Aspartate Amino Transferase 17 U/L (14-36); Bilirubin,Total 0.4 mg/dL (0.2-1.3); Blood Urea Nitrogen 59 mg/dL (7-17); Calcium 8.7 mg/dL (8.4-10.2); Carbon Dioxide 19 mmol/L (22-30); Chloride 90 mmol/L (98-107); Glucose 343 mg/dL (65-110); Phosphorus 4.7 mg/dL (2.5-4.5); Potassium 3.7 mmol/L (3.4-5.0); Sodium 117 mmol/L (137-145)
[2022-07-23 06:46] LABS: Estimated CRCL calculation 6 ml/min; Estimated Glomerular Filt Rate 5
[2022-07-23 06:58] LABS: Vancomycin Random 21.1 ug/mL (10-20)
[2022-07-23 08:06] LABS: Glucose Point of Care 386 mg/dl (65-105)
--- NOTE | 2022-07-23 08:22 | PM.IMPN ---
Progress Note: A&P Assessment and Plan (1) Hyponatremia: Code(s): E87.1 - Hypo-osmolality and hyponatremia Status: Acute Assessment and Plan: Na dropped to 120 but improved to improved to 124. This morning, sodium down to 117. [place] related to ESRD and HD. NS 3% given. Na improved to 123. Follow. Appreciate nephrology input. (2) Septic shock: Code(s): A41.9 - Sepsis, unspecified organism; R65.21 - Severe sepsis with septic shock Status: Acute Assessment and Plan: Septic shock present on admission with hypotension, tachycardic, elevated WBC and elevated CRP.?Hypotension could be exacerbated by dehydration. CXR shows persistent infiltrates in right lung which may be pneumonia BCx 07/20 NGTD. Peritnoeal Cx 07/21 NGTD Left hip Cx 07/21 NGTD Doubt peritonitis since fluid not consistent with this. Consider source of sepsis from left trochanteric bursitis Levophed infusion started and was able to be weaned off 07/21; also treated with IV fluids and Albumin. Solu-Cortef started. Midodrine added. Off hydrocortisone now. BP still soft. Continue IV abx with Aztreonam and Vanco. Aztreonam is good enteric coverage. (3) Pneumonia: Code(s): J18.9 - Pneumonia, unspecified organism Status: Acute Assessment and Plan: CXR showing persistent right mid and lower lung field infiltrates. Not treated with abx last admission (07/13-07/16). Abx started here. Cultures as above. Remains on room air. Follow (4) Trochanteric bursitis, left hip: Code(s): M70.62 - Trochanteric bursitis, left hip Status: Acute Assessment and Plan: CT scan of the hip showed severe left trochanteric bursitis with fluid collection measuring 8.4 x 2.4 x 12.0 cm. Close to 200 mL of fluid was removed. Culture sent and are no growth. Discussed with orthopedics. Fluid collection may be relate to to her peritoneal dialysis. Follow up on cultures. Continue vancomycin and aztreonam (5) Hip pain: Code(s): M25.559 - Pain in unspecified hip Status: Acute Assessment and Plan: Hip CT showing moderate left hip OA and severe left trochanteric bursitis with large fluid collection at 8.4x12cm. As above. (6) Peritonitis: Code(s): K65.9 - Peritonitis, unspecified Status: Acute Assessment and Plan: Peritoneal fluid showing no WBC and 1 RBC. Cx NGTD. 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 Continue AccuCheks covering with sliding scale.? Hypoglycemia protocol available as needed.? Continue diabetic diet. Advacne Lantus. Steroids stopped so should help (8) End-stage renal disease on peritoneal dialysis: Onset Date: 06/2016 Code(s): N18.6 - End stage renal disease; Z99.2 - Dependence on renal dialysis Status: Chronic Assessment and Plan: Nephrology following for PD. Continue PD per their recommendations (9) Fall: Code(s): W19.XXXA - Unspecified fall, initial encounter Status: Acute Assessment and Plan: Cervical spine CT showing no acute findings. 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 Evaluation limited by motion and streak artifact from overlying catheter. Will check orthostatic vitals once patient is hemodynamically stabilized. Continue ?PT OT (10) Abdominal pain: Code(s): R10.9 - Uns
[2022-07-23] MEDS: INSULIN GLARGINE (*BKC) 100 UNITS/ML 20 UNITS SUB-Q (08:25)
[2022-07-23] MEDS: INSULIN ASPART (*BKC) 100 UNITS/ML SUB-Q ×3 (08:26→17:53)
[2022-07-23] MEDS: PIOGLITAZONE HCL 30 MG TABLET PO (09:14)
[2022-07-23] MEDS: MIDODRINE HCL 10 MG TABLET PO ×3 (09:14→17:56)
[2022-07-23] MEDS: PANTOPRAZOLE 40 MG TABLET PO (09:14)
[2022-07-23] MEDS: VITAMIN B CMPLX/VIT C/FOLIC AC 1 CAPSULE 1 CAP PO (09:14)
[2022-07-23] MEDS: GABAPENTIN 100 MG CAPSULE PO ×3 (09:16→17:57)
[2022-07-23] MEDS: CHOLECALCIFEROL 1,000 UNITS TABLET 2000 UNITS PO ×2 (09:16→17:57)
[2022-07-23] MEDS: FLUTICASONE PROPIONATE 0.05% NA SPR 16 GM BTL (*BKC) 1 SPRAY NASAL (09:16)
[2022-07-23] MEDS: allopurinoL 150 MG TABLET PO (09:17)
[2022-07-23] MEDS: SEVELAMER CARBONATE 800 MG TABLET 5600 MG PO ×3 (09:17→17:56)
[2022-07-23] MEDS: HEPARIN SODIUM 5,000 UNITS/ML VIAL 5000 UNITS SUB-Q ×2 (09:19→20:07)
--- NOTE | 2022-07-23 11:22 | P.PNNP_ITS ---
Progress Note: A&P Assessment and Plan (1) End stage renal disease: Code(s): N18.6 - End stage renal disease Status: Chronic Assessment and Plan: * continue nightly CCPD * 1396 removed overnight with machine. * fluid clear and flows good. * cell count okay on 07/21 (2) Septic shock: Code(s): A41.9 - Sepsis, unspecified organism; R65.21 - Severe sepsis with septic shock Status: Acute Assessment and Plan: * noted to be hypotensive on presentation * initially somewhat responsive to IVF resuscitation * however, eventually required vasopressor support * blood WBC and CRP elevated * culture from hip aspiration was negative so far. * Urine culture pending * blood cultures negative * white cell count is up a little bit. * Should we add coverage for g positives and anaerobes? * on aztreo. (3) Hyponatremia: Code(s): E87.1 - Hypo-osmolality and hyponatremia Status: Acute Assessment and Plan: * due to dilution. * sodium Dropped quite a bit overnight. * strangely she did not drink very much fluid at all overnight. * Will fluid restrict and give a small dose of 3% saline (4) Pneumonia: Code(s): J18.9 - Pneumonia, unspecified organism Status: Acute Assessment and Plan: * chest x-ray shows persistent infiltrates in the right lung * abscess culture pending * bladder catheterized. 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 Subjective Date/time seen: 07/23/22 11:22 Interval history: Shantelle feels a little better today. Very mild abdominal discomfort diffusely. She is eating however. Hip feels better. She is on peritoneal dialysis. Tolerating it well. Fluid was clear. She had about 1400cc off. she was seen at 10:30 a.m. Exam Narrative: General: WD/WN female in NAD Heart: normal S1 and S2; no rub or gallop Lungs: clear bilaterally Abdomen: soft, nontender, nondistended, positive bowel sounds Extremities: no edema Skin: no rash Or subcu nodules Objective Data Vital Signs Vital Signs: Vital Signs - 24 hr 07/22/22 12:00 07/22/22 12:00 07/22/22 12:00 Temperature 97.7 F Pulse Rate 81 76 Respiratory Rate 16 Blood Pressure 125/53 L Pulse Oximetry 99 99 Oxygen Delivery Room Air 07/22/22 14:00 07/22/22 16:00 07/22/22 16:00 Temperature Pulse Rate 86 69 Respiratory Rate Blood Pressure Pulse Oximetry 99 Oxygen Delivery Room Air
--- NOTE | 2022-07-23 11:22 | PM.PNNEP ---
Progress Note: A&P Assessment and Plan (1) End stage renal disease: Code(s): N18.6 - End stage renal disease Status: Chronic Assessment and Plan: continue nightly CCPD 1396 removed overnight with machine. fluid clear and flows good. cell count okay on 07/21 (2) Septic shock: Code(s): A41.9 - Sepsis, unspecified organism; R65.21 - Severe sepsis with septic shock Status: Acute Assessment and Plan: noted to be hypotensive on presentation initially somewhat responsive to IVF resuscitation however, eventually required vasopressor support blood WBC and CRP elevated culture from hip aspiration was negative so far. Urine culture pending blood cultures negative white cell count is up a little bit. Should we add coverage for g positives and anaerobes? on aztreo. (3) Hyponatremia: Code(s): E87.1 - Hypo-osmolality and hyponatremia Status: Acute Assessment and Plan: due to dilution. sodium Dropped quite a bit overnight. strangely she did not drink very much fluid at all overnight. Will fluid restrict and give a small dose of 3% saline (4) Pneumonia: Code(s): J18.9 - Pneumonia, unspecified organism Status: Acute Assessment and Plan: chest x-ray shows persistent infiltrates in the right lung abscess culture pending bladder catheterized. on aztreo (5) Right flank pain: Code(s): R10.9 - Unspecified abdominal pain Status: Acute Assessment and Plan: extensive work-up evaluation to date has been unrevealing follow clinical symptoms (6) Anemia: Code(s): D64.9 - Anemia, unspecified Status: Chronic Assessment and Plan: due to ESRD on Epogen Hemoglobin improved to 9.7 (7) Diabetes mellitus: Onset Date: ~1995 Qualifiers: Diabetes mellitus type: type 2 Diabetes mellitus mcfp insulin use: without terminal clerk use Diabetes mellitus complication status: without complication Qualified Code(s): E11.9 - Type 2 diabetes mellitus without complications Code(s): E11.9 - Type 2 diabetes mellitus without complications Status: Chronic Assessment and Plan: on accuchecks and ssi per hosp/int. Subjective Date/time seen: 07/23/22 11:22 Interval history: Shantelle feels a little better today. Very mild abdominal discomfort diffusely. She is eating however. Hip feels better. She is on peritoneal dialysis. Tolerating it well. Fluid was clear. She had about 1400cc off. she was seen at 10:30 a.m. Exam Narrative: General: WD/WN female in NAD Heart: normal S1 and S2; no rub or gallop Lungs: clear bilaterally Abdomen: soft, nontender, nondistended, positive bowel sounds Extremities: no edema Skin: no rash Or subcu nodules Objective Data Vital Signs Vital Signs: Vital Signs - 24 hr 07/22/22 12:00 07/22/22 12:00 07/22/22 12:00 Temperature 97.7 F Pulse Rate 81 76 Respiratory Rate 16 Blood Pressure 125/53 L Pulse Oximetry 99 99 Oxygen Delivery Room Air 07/22/22 14:00 07/22/22 16:00 07/22/22 16:00 Temperature Pulse Rate 86 69 Respiratory Rate Blood Pressure Pulse Oximetry 99 Oxygen Delivery Room Air 07/22/22 14:00 07/22/22 16:00 07/22/22 18:00 Temperature 97.4 F L Pulse Rate 70 62 95 Respiratory Rate 16 13 Blood Pressure 137/71 133/62 Pulse Oximetry 99 99 Oxygen Delivery 07/22/22 18:00 07/22/22 18:08 07/22/22 20:00 Temperature 97.4 F L 98.6 F Pulse Rate 91 83 68 Respiratory Rate 13 18 12 Blood Pressure 102/50 L 131/88 118/63 Pulse Oximetry 99 98 95 Oxygen Delivery Room Air 07/22/22 20:00 07/22/22 20:00 07/22/22 22:00 Temperature Pulse Rate 68 68 76 Respiratory Rate 12 Blood Pressure Pulse Oximetry 98 Oxygen Delivery Room Air 07/22/22 22:00 07/23/22 00:00 07/23/22 00:00 Temperature 97.4 F L Pulse Rate 73 72 72 Resp
[2022-07-23 11:26] LABS: Glucose Point of Care 328 mg/dl (65-105)
--- NOTE | 2022-07-23 11:29 | PC.NURSE ---
Frequent PVCs, short runs of bigeminy, couplets, and 3 beat run of Vtach noted on telemetry. Mag 2, K 3.7. Detailed message left for Dr. Olson.
--- NOTE | 2022-07-23 13:30 | PC.NURSE ---
BP 88/47. Pt dizzy. Continued ecotopy to include trigeminy and couplets. Informed Dr. Olson who advised to give 250ml bolus of NS, repeat BP, if systolic <90 repeat 250ml bolus of NS if ok with nephrology. Dr. Flowers notified and agreeable to plan.
[2022-07-23] MEDS: SODIUM CHLORIDE 0.9% IV 250 ML 999 ML IV CONT ×2 (13:58→15:20)
[2022-07-23 14:57] LABS: Sodium 123 mmol/L (137-145)
[2022-07-23 17:27] LABS: Glucose Point of Care 271 mg/dl (65-105)
[2022-07-23] MEDS: ONDANSETRON INJ 4 MG/2 ML VIAL IV PUSH (18:32)
[2022-07-23] MEDS: SODIUM CHLORIDE 0.9% IV 500 ML 999 ML IV CONT (19:15)
--- NOTE | 2022-07-23 19:21 | PC.NURSE ---
BP 67/44. Color pale, vomiting, complaints of feeling dizzy. Dr. Olson made aware. New orders noted for 500 ml bolus of NS. Advised to call back if systolic pressure remains < [address] Flowers regarding peritoneal dialysis. Dr. Flowers advised to push Stop on dialysis machine. Dialysis machine stopped at this time.
[2022-07-23] MEDS: ALBUMIN HUMAN 25% 25 GM/100 ML 100 ML IVPB ×2 (20:53→22:13)
[2022-07-23 21:28] LABS: Glucose Point of Care 253 mg/dl (65-105)
[2022-07-24] VITALS (18 sets, daily range): BP systolic 82–137; BP diastolic 47–86; PULSE 81–131; RESP 15–25; TEMP 35.8–36.8; O2SAT 93–100
[2022-07-24] MEDS: ONDANSETRON INJ 4 MG/2 ML VIAL IV PUSH ×2 (00:12→04:31)
[2022-07-24] MEDS: CENTRAL LINE FLUSH 10 ML IV PUSH ×3 (06:32→21:44)
[2022-07-24] MEDS: AZTREONAM 1 GM in DEXTROSE 5% IN WATER 50 ML 100 ML IVPB (06:32)
[2022-07-24 07:05] LABS: Hematocrit 31.1 % (37.0-47.0); Hemoglobin 9.7 g/dL (12.0-15.0); Mean Corpuscular HGB Conc 31.2 g/dl (32-36); Mean Corpuscular Hemoglobin 31.2 pg (26-34); Mean Platelet Volume 9.5 fl (7.4-10.4); Platelet Count Result 354 k/mm3 (150-375); Red Blood Count 3.11 M/mm3 (4.2-5.4); Red Cell Distribution Width 16.3 % (11.5-14.5); White Blood Count 26.2 K/mm3 (4.5-10.0)
[2022-07-24 07:12] LABS: Potassium 3.9 mmol/L (3.4-5.0)
[2022-07-24 07:17] LABS: Vancomycin Random 19.9 ug/mL (10-20)
[2022-07-24 07:23] LABS: Alanine Aminotransferase 13 U/L (6-35); Albumin Level 3.8 g/dL (3.5-5.1); Alkaline Phosphatase 78 U/L (38-126); Anion Gap 11 mmol/L (8-16); Aspartate Amino Transferase 16 U/L (14-36); Bilirubin,Total 0.5 mg/dL (0.2-1.3); Blood Urea Nitrogen 67 mg/dL (7-17); Calcium 9.1 mg/dL (8.4-10.2); Carbon Dioxide 19 mmol/L (22-30); Chloride 94 mmol/L (98-107); Estimated CRCL calculation 6 ml/min; Estimated Glomerular Filt Rate 5; Glucose 224 mg/dL (65-110); Sodium 124 mmol/L (137-145)
[2022-07-24 07:59] LABS: Glucose Point of Care 189 mg/dl (65-105)
--- NOTE | 2022-07-24 10:36 | P.PNNP_ITS ---
Progress Note: A&P Assessment and Plan (1) End stage renal disease: Code(s): N18.6 - End stage renal disease Status: Chronic Assessment and Plan: * continue nightly CCPD * the patient's blood pressure was low last night and so peritoneal dialysis was discontinued. She ended up with -2800 cc out, so she still has some dwelling in her belly. * fluid clear and flows good hitherto. I have reached out to the dialysis nurse to see if the fluid is still clear. * cell count okay on 07/21 (2) Septic shock: Code(s): A41.9 - Sepsis, unspecified organism; R65.21 - Severe sepsis with septic shock Status: Acute Assessment and Plan: * after original presentation with septic syndrome, she improved but now worse again. * she was hypotensive ysterday evening and received multiple fluid boluses and PD stopped. * blood WBC and CRP elevated * Urine culture VRE * blood cultures and fluid cultures negative (but was already on atbs) * white cell count is up again. * consider VRE sespsis? anaerobe? yeast (but blood cx neg)? with the feeling of having ot have a BM, consider appendix? CT ordered. * Dr Olson looking over the atb selections. (3) Hyponatremia: Code(s): E87.1 - Hypo-osmolality and hyponatremia Status: Acute Assessment and Plan: * due to dilution. * sodium improved overnight. * sodium is better. bp is better today. will try another round of 3% saline after ct done. (4) Pneumonia: Code(s): J18.9 - Pneumonia, unspecified organism Status: Acute Assessment and Plan: * chest x-ray shows persistent infiltrates in the right lung * abscess culture pending * bladder catheterized. * on aztreo (5) Right flank pain: Code(s): R10.9 - Unspecified abdominal pain Status: Acute Assessment and Plan: * extensive work-up evaluation to date has been unrevealing * follow clinical symptoms (6) Anemia: Code(s): D64.9 - Anemia, unspecified Status: Chronic Assessment and Plan: * due to ESRD * was on Epogen. will give more. * Hemoglobin stable at 9.7 (7) Diabetes mellitus: Onset Date: ~1995 Qualifiers: Diabetes mellitus complication status: without complication Diabetes mellitus mcfp insulin use: without mcfp use Diabetes mellitus type: type 2 Qualified Code(s): E11.9 - Type 2 diabetes mellitus without complications Code(s): E11.9 - Type 2 diabetes mellitus without complications Status: Chronic Assessment and Plan: * on accuchecks and ssi per hosp/int. Subjective Date/time seen: 07/24/22 10:36 Interval history: Shantelle feels worse. She has lower abdominal pain. She had nausea and vomiting all night. She feels like she has to have a bowel movement. CT scan is ordered Exam Narrative: General: WD/WN female in NAD Heart: normal S1 and S2; no rub or gallop Lungs: clear bilaterally Abdomen: soft, nontender, nondistended, positive bowel sounds Extremities: no edema or cyanosis Skin: no rash or subcu nodules Objective Data Vital Signs Vital Signs: Vital Signs - 24 hr 07/23/22 12:00 07/23/22 13:30 07/23/22 14:06 Temperature 97.5 F L Pulse Rate 89 Respiratory Rate 18 Blood Pressure 101/52 L 86/41 L 97/54 L Pulse Oximetry 99 Oxygen Delivery
--- NOTE | 2022-07-24 10:36 | PM.PNNEP ---
Progress Note: A&P Assessment and Plan (1) End stage renal disease: Code(s): N18.6 - End stage renal disease Status: Chronic Assessment and Plan: continue nightly CCPD the patient's blood pressure was low last night and so peritoneal dialysis was discontinued. She ended up with -2800 cc out, so she still has some dwelling in her belly. fluid clear and flows good hitherto. I have reached out to the dialysis nurse to see if the fluid is still clear. cell count okay on 07/21 (2) Septic shock: Code(s): A41.9 - Sepsis, unspecified organism; R65.21 - Severe sepsis with septic shock Status: Acute Assessment and Plan: after original presentation with septic syndrome, she improved but now worse again. she was hypotensive ysterday evening and received multiple fluid boluses and PD stopped. blood WBC and CRP elevated Urine culture VRE blood cultures and fluid cultures negative (but was already on atbs) white cell count is up again. consider VRE sespsis? anaerobe? yeast (but blood cx neg)? with the feeling of having ot have a BM, consider appendix? CT ordered. Dr Olson looking over the atb selections. (3) Hyponatremia: Code(s): E87.1 - Hypo-osmolality and hyponatremia Status: Acute Assessment and Plan: due to dilution. sodium improved overnight. sodium is better. bp is better today. will try another round of 3% saline after ct done. (4) Pneumonia: Code(s): J18.9 - Pneumonia, unspecified organism Status: Acute Assessment and Plan: chest x-ray shows persistent infiltrates in the right lung abscess culture pending bladder catheterized. on aztreo (5) Right flank pain: Code(s): R10.9 - Unspecified abdominal pain Status: Acute Assessment and Plan: extensive work-up evaluation to date has been unrevealing follow clinical symptoms (6) Anemia: Code(s): D64.9 - Anemia, unspecified Status: Chronic Assessment and Plan: due to ESRD was on Epogen. will give more. Hemoglobin stable at 9.7 (7) Diabetes mellitus: Onset Date: ~1995 Qualifiers: Diabetes mellitus complication status: without complication Diabetes mellitus nursing home insulin use: without nursing home use Diabetes mellitus type: type 2 Qualified Code(s): E11.9 - Type 2 diabetes mellitus without complications Code(s): E11.9 - Type 2 diabetes mellitus without complications Status: Chronic Assessment and Plan: on accuchecks and ssi per hosp/int. Subjective Date/time seen: 07/24/22 10:36 Interval history: Shantelle feels worse. She has lower abdominal pain. She had nausea and vomiting all night. She feels like she has to have a bowel movement. CT scan is ordered Exam Narrative: General: WD/WN female in NAD Heart: normal S1 and S2; no rub or gallop Lungs: clear bilaterally Abdomen: soft, nontender, nondistended, positive bowel sounds Extremities: no edema or cyanosis Skin: no rash or subcu nodules Objective Data Vital Signs Vital Signs: Vital Signs - 24 hr 07/23/22 12:00 07/23/22 13:30 07/23/22 14:06 Temperature 97.5 F L Pulse Rate 89 Respiratory Rate 18 Blood Pressure 101/52 L 86/41 L 97/54 L Pulse Oximetry 99 Oxygen Delivery 07/23/22 13:30 07/23/22 15:43 07/23/22 16:00 Temperature 97.5 F L Pulse Rate 79 Respiratory Rate 15 Blood Pressure 100/38 L 108/39 L 102/40 L Pulse Oximetry 100 Oxygen Delivery 07/23/22 17:50 07/23/22 12:00 07/23/22 18:00 Temperature 97.5 F L Pulse Rate 86 90 Respiratory Rate 15 13 Blood Pressure 92/47 L 103/70 Pulse Oximetry 99 99 Oxygen Delivery Room Air Room Air 07/23/22 14:00 07/23/22 16:00 07/23/22 18:00 Temperature Pulse Rate 78 78 85 Respiratory Rate Blood Pressure Pulse Oximetry Oxygen Delivery 07/23/22 16:00 07/23/22 12:00 07/23/22 19
[2022-07-24] MEDS: LIDOCAINE 5% PATCH 2 PATCH TOPICAL (10:41)
--- NOTE | 2022-07-24 10:46 | PM.IMPN ---
Progress Note: A&P Assessment and Plan (1) Septic shock: Code(s): A41.9 - Sepsis, unspecified organism; R65.21 - Severe sepsis with septic shock Status: Acute Assessment and Plan: Septic shock present on admission with hypotension, tachycardic, elevated WBC and elevated CRP.?Hypotension could be exacerbated by dehydration. CXR shows persistent infiltrates in right lung which may be pneumonia BCx 07/20 NGTD. Peritnoeal Cx 07/21 NGTD Left hip Cx 07/21 NGTD UCx 07/22 growing VRE sensitive only to Macrobid (but suspect contaminant or colonizer) Concern now for peritonitis given exam findings. Consider source of sepsis from left trochanteric bursitis Levophed infusion started and was able to be weaned off 07/21; also treated with IV fluids and Albumin. Solu-Cortef started but has since been stopped. Midodrine added. BP still soft. Continue IV abx but change to Flagyl and Primaxin. On Vanco. Will change to linezolid. Check CT A/P (2) Hyponatremia: Code(s): E87.1 - Hypo-osmolality and hyponatremia Status: Acute Assessment and Plan: Na dropped to 120 but improved to improved to 124. Na dropped to 117 and NS 3% given. [place] related to ESRD and HD. This morning, sodium stable at 124. Follow. Appreciate nephrology input. (3) Pneumonia: Code(s): J18.9 - Pneumonia, unspecified organism Status: Acute Assessment and Plan: CXR showing persistent right mid and lower lung field infiltrates. Not treated with abx last admission (07/13-07/16). Abx started here. Cultures as above. Remains on room air. Follow (4) Trochanteric bursitis, left hip: Code(s): M70.62 - Trochanteric bursitis, left hip Status: Acute Assessment and Plan: CT scan of the hip showed severe left trochanteric bursitis with fluid collection measuring 8.4 x 2.4 x 12.0 cm. Close to 200 mL of fluid was removed. Culture sent and are no growth. Discussed with orthopedics. Fluid collection may be relate to to her peritoneal dialysis. Follow up on cultures. Continue abx as above (5) Hip pain: Code(s): M25.559 - Pain in unspecified hip Status: Acute Assessment and Plan: Hip CT showing moderate left hip OA and severe left trochanteric bursitis with large fluid collection at 8.4x12cm. As above. (6) Peritonitis: Code(s): K65.9 - Peritonitis, unspecified Status: Acute Assessment and Plan: Peritoneal fluid showing no WBC and 1 RBC. Cx NGTD. Peritonitis was ruled out but now having increasing pain. Check CT Abd/pelvis. Consider repeating culuters. (7) Diabetes mellitus: Onset Date: ~1995 Qualifiers: Diabetes mellitus complication status: without complication Diabetes mellitus ad terminal makeup operator insulin use: without ad terminal makeup operator use Diabetes mellitus type: type 2 Qualified Code(s): E11.9 - Type 2 diabetes mellitus without complications Code(s): E11.9 - Type 2 diabetes mellitus without complications Status: Chronic Assessment and Plan: The patient's blood glucose was reviewed on 07/24 Glucose better controlled and now not eating due to abdominal pain Continue AccuCheks covering with sliding scale.? Hypoglycemia protocol available as needed.? Continue diabetic diet. Will back off on Lantus. (8) End-stage renal disease on peritoneal dialysis: Onset Date: 06/2016 Code(s): N18.6 - End stage renal disease; Z99.2 - Dependence on renal dialysis Status: Chronic Assessment and Plan: Nephrology following for PD. Continue PD per their recommendations (9) Fall: Code(s): W19.XXXA - Unspecified fall, initial encounter Status: Acute Assessment and Plan: Cervical spine CT showing no acute findings. 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 Evaluation limited by motion and strea
--- NOTE | 2022-07-24 10:47 | PC.NURSE ---
Multiple attempts made to offer patient PO/oral medications this AM. Patient states she feels nauseous with severe abdominal pain and does not wish to take any oral medications at this time. patient refusing breakfast meal tray as well. MD notified and updated on patient condition.
[2022-07-24] MEDS: INSULIN GLARGINE (*BKC) 100 UNITS/ML 10 UNITS SUB-Q (11:36)
[2022-07-24] MEDS: PANTOPRAZOLE SODIUM IV 40 MG VIAL IV PUSH (11:37)
[2022-07-24] MEDS: EPOETIN ALFA-EPBX 10,000 UNITS/ML VIAL 10000 UNITS SUB-Q (11:37)
[2022-07-24] MEDS: LINEZOLID 600 MG/300 ML 600 MG/300 ML SOLN 300 MG IVPB ×2 (12:25→21:15)
[2022-07-24] MEDS: MIDODRINE HCL 10 MG TABLET PO ×2 (12:25→17:05)
[2022-07-24] MEDS: HEPARIN SODIUM 5,000 UNITS/ML VIAL 5000 UNITS SUB-Q ×2 (13:32→21:44)
[2022-07-24] MEDS: metroNIDAZOLE 500 MG/ISO 100ML 500 MG/100 ML BAG 100 MG IVPB ×2 (13:32→21:48)
[2022-07-24] MEDS: SODIUM CHLORIDE 3% 240 ML 40 ML IV CONT (14:52)
[2022-07-24] MEDS: INSULIN ASPART (*BKC) 100 UNITS/ML SUB-Q (16:59)
[2022-07-24 17:05] LABS: Glucose Point of Care 203 mg/dl (65-105)
[2022-07-24 20:54] LABS: Appearance Peritoneal Fluid Clear (Clear); Source Peritoneal Fluid Peritoneal Fluid
[2022-07-24 20:55] LABS: Color Peritoneal Fluid Colorless (Colorless)
[2022-07-24 20:56] LABS: Lymphocytes Peritoneal Fluid 2 %; Monocytes Peritoneal Fluid 30 %; Neutrophils Peritoneal Fluid 61 % (0-25); Nucleated Cells Peritoneal Flu 2675 /uL (0-500); RBC Peritoneal Fluid 501 /uL (0-100000)
[2022-07-24 20:57] LABS: Macrophages Peritoneal Fluid 7 %
[2022-07-24 21:43] LABS: Glucose Point of Care 233 mg/dl (65-105)
[2022-07-24 21:51] LABS: Sodium 127 mmol/L (137-145)
[2022-07-25] VITALS (18 sets, daily range): BP systolic 99–131; BP diastolic 51–67; PULSE 87–114; RESP 14–20; TEMP 36.4–37.7; O2SAT 95–100
[2022-07-25] MEDS: metroNIDAZOLE 500 MG/ISO 100ML 500 MG/100 ML BAG 100 MG IVPB ×3 (05:07→21:05)
[2022-07-25] MEDS: CENTRAL LINE FLUSH 10 ML IV PUSH ×3 (05:07→21:13)
[2022-07-25 05:24] LABS: Hematocrit 24.7 % (37.0-47.0); Hemoglobin 7.9 g/dL (12.0-15.0); Mean Corpuscular Hemoglobin 31.7 pg (26-34); Mean Corpuscular Volume 99.2 fl (80-100); Mean Platelet Volume 9.4 fl (7.4-10.4); Platelet Count Result 280 k/mm3 (150-375); Red Blood Count 2.49 M/mm3 (4.2-5.4); Red Cell Distribution Width 16.4 % (11.5-14.5); White Blood Count 45.8 K/mm3 (4.5-10.0)
[2022-07-25 05:40] LABS: Alanine Aminotransferase 14 U/L (6-35); Albumin Level 2.7 g/dL (3.5-5.1); Alkaline Phosphatase 77 U/L (38-126); Anion Gap 9 mmol/L (8-16); Aspartate Amino Transferase 20 U/L (14-36); Bilirubin,Total 0.4 mg/dL (0.2-1.3); Blood Urea Nitrogen 63 mg/dL (7-17); Calcium 8.2 mg/dL (8.4-10.2); Carbon Dioxide 18 mmol/L (22-30); Chloride 98 mmol/L (98-107); Glucose 227 mg/dL (65-110); Magnesium 1.8 mg/dL (1.6-2.3); Phosphorus 4.4 mg/dL (2.5-4.5); Potassium 3.6 mmol/L (3.4-5.0); Sodium 125 mmol/L (137-145)
[2022-07-25 05:47] LABS: Estimated CRCL calculation 7 ml/min; Estimated Glomerular Filt Rate 5
[2022-07-25 06:44] LABS: Hematocrit 24.8 % (37.0-47.0); Mean Corpuscular HGB Conc 32.3 g/dl (32-36); Mean Corpuscular Hemoglobin 31.5 pg (26-34); Mean Corpuscular Volume 97.6 fl (80-100); Mean Platelet Volume 9.4 fl (7.4-10.4); Platelet Count Result 297 k/mm3 (150-375); Red Blood Count 2.54 M/mm3 (4.2-5.4); Red Cell Distribution Width 16.5 % (11.5-14.5); White Blood Count 46.3 K/mm3 (4.5-10.0)
[2022-07-25 07:11] LABS: Glucose Point of Care 196 mg/dl (65-105)
[2022-07-25 07:11] LABS: Glucose Point of Care 201 mg/dl (65-105)
[2022-07-25 07:20] LABS: Glucose Point of Care 232 mg/dl (65-105)
[2022-07-25] MEDS: LINEZOLID 600 MG/300 ML 600 MG/300 ML SOLN 300 MG IVPB ×2 (08:16→20:32)
[2022-07-25] MEDS: PANTOPRAZOLE SODIUM IV 40 MG VIAL IV PUSH (08:58)
[2022-07-25] MEDS: INSULIN GLARGINE (*BKC) 100 UNITS/ML 10 UNITS SUB-Q (09:03)
[2022-07-25 09:30] LABS: IFOB Positive Control Positive; Immunochemical Fecal Occult Bl Positive (N)
--- NOTE | 2022-07-25 09:33 | PM.IMPN ---
Progress Note: A&P Assessment and Plan (1) Septic shock: Code(s): A41.9 - Sepsis, unspecified organism; R65.21 - Severe sepsis with septic shock Status: Acute Assessment and Plan: Septic shock present on admission with hypotension, tachycardic, elevated WBC and elevated CRP.?Hypotension could be exacerbated by dehydration. CXR shows persistent infiltrates in right lung which may be pneumonia BCx 07/20 NGTD. Peritnoeal Cx 07/21 NGTD Left hip Cx 07/21 NGTD UCx 07/22 growing VRE sensitive only to Macrobid (but suspect contaminant or colonizer) Levophed infusion started and was able to be weaned off 07/21; also treated with IV fluids and Albumin. Solu-Cortef started but has since been stopped. Midodrine added 07/21 Concern for peritonitis given exam findings on 07/24. BP soft and WBC climbing. Abx adjusted to Primaxin, Flagyl and vanco. Peritoneal Fluid 07/24: WBC 2675 with 61% neutrophils. CT scan showing large amount of retained fecal material in the rectum which is distended. Mild perirectal fluid/inflammation extending into the presacral space. Consider stercoral proctitis. WBC worse again today at 46K but exam more localized. BP better today. Able to pass some stools. Hold on colace enema and consult GI. Continue IV abx. NPO except meds. (2) Peritonitis: Code(s): K65.9 - Peritonitis, unspecified Status: Acute Assessment and Plan: Peritoneal fluid 07/21 showing no WBC and 1 RBC. Cx NGTD. Peritonitis was ruled out but now having increasing pain so testing repeated. Peritoneal fluid 07/24 showing 500RBC/2675WBC with 61% neutrophils c/w peritonitis. CT Abd/pelvis as above. Now having rectal bleeding felt related to probable stecoral ulcer. Repeat cultures pending. Continue current IV abx. (3) Constipation: Code(s): K59.00 - Constipation, unspecified Status: Acute Assessment and Plan: CT scan as mentioned above. Now having rectal bleeding felt related to stecoral ulcer. Soap suds enema given and Miralax started. Consider microperforation given the perirectal inflammation but unclear since she does have PD. Hold on repeat colace enema and consult GI. (4) Hyponatremia: Code(s): E87.1 - Hypo-osmolality and hyponatremia Status: Acute Assessment and Plan: Na dropped to 117 and NS 3% given. [place] related to ESRD and HD. This morning, sodium stable at 125 Follow. Appreciate nephrology input. (5) Pneumonia: Code(s): J18.9 - Pneumonia, unspecified organism Status: Acute Assessment and Plan: CXR showing persistent right mid and lower lung field infiltrates. Not treated with abx last admission (07/13-07/16). Abx started here. Cultures as above. Remains on room air. Follow (6) Trochanteric bursitis, left hip: Code(s): M70.62 - Trochanteric bursitis, left hip Status: Acute Assessment and Plan: CT scan of the hip showed severe left trochanteric bursitis with fluid collection measuring 8.4 x 2.4 x 12.0 cm. Close to 200 mL of fluid was removed. Culture sent and are no growth. Discussed with orthopedics. Fluid collection may be relate to to her peritoneal dialysis. Follow up on cultures. Continue abx as above (7) Hip pain: Code(s): M25.559 - Pain in unspecified hip Status: Acute Assessment and Plan: Hip CT showing moderate left hip OA and severe left trochanteric bursitis with large fluid collection at 8.4x12cm. As above. (8) Diabetes mellitus: Onset Date: ~1995 Qualifiers: Diabetes mellitus complication status: without complication Diabetes mellitus rn long term care insulin use: without care home use Diabetes mellitus type: type 2 Qualified Code(s): E11.9 - Type 2 diabetes mellitus without complications Code(s): E11.9 - Type 2 diabetes mellitus without complications Status: Chronic Assessment and Plan: A1c 7.1 in June. The patient's blood glucose was reviewed on 07/25 Gluc
[2022-07-25] MEDS: LIDOCAINE 5% PATCH 2 PATCH TOPICAL (09:50)
--- NOTE | 2022-07-25 10:27 | P.PNNP_ITS ---
Progress Note: A&P Assessment and Plan (1) End stage renal disease: Code(s): N18.6 - End stage renal disease Status: Chronic Assessment and Plan: * continue nightly CCPD * follow electrolytes, volume status, and clearance * PD fluid cell count okay on 07/21 * HOWEVER, repealt PD fluid cell count (on 07/24) abnormal * peritonitis from bowel translocation(?) (2) Septic shock: Code(s): A41.9 - Sepsis, unspecified organism; R65.21 - Severe sepsis with septic shock Status: Acute Assessment and Plan: * after original presentation with septic syndrome, she improved * however in last 24 - 48 hours, seems worse again * BP better at this time * however, WBC and CRP remain quite elevated * CT of abd/pelvis (on 07/24) noted -- stercoral proctitis playing a role * possible peritonitis from bowel translocation * GI consulted * urine culture with VRE * blood cultures and fluid cultures negative to date * follow repeat PD fluid cultures given change in PD fluid analysis (3) Hyponatremia: Code(s): E87.1 - Hypo-osmolality and hyponatremia Status: Acute Assessment and Plan: * due to dilution (fluid boluses and incomplete peritoneal dialysis (on 07/23 - 07/24) * sodium better s/p 3% saline * follow trend (4) Pneumonia: Code(s): J18.9 - Pneumonia, unspecified organism Status: Acute Assessment and Plan: * chest x-ray shows persistent infiltrates in the right lung * on antibiotics * on room air (5) Right flank pain: Code(s): R10.9 - Unspecified abdominal pain Status: Acute Assessment and Plan: * extensive work-up evaluation to date has been unrevealing CATEGORY DIRECTOR * related to recent CT scan (on 07/24) findings (?) * follow clinical symptoms (6) Anemia: Code(s): D64.9 - Anemia, unspecified Status: Chronic Assessment and Plan: * due to ESRD and acute illness * on Epogen * suspect some Epogen resistance give high degree of inflammation * follow H/H (7) Diabetes mellitus: Onset Date: ~1995 Qualifiers: Diabetes mellitus complication status: without complication Diabetes mellitus prison insulin use: without prison use Diabetes mellitus type: type 2 Qualified Code(s): E11.9 - Type 2 diabetes mellitus without complications Code(s): E11.9 - Type 2 diabetes mellitus without complications Status: Chronic Assessment and Plan: * on accuchecks * glycemic control per hospitalists Will continue to follow. Subjective Date/time seen: 07/25/22 10:27 Chart reviewed since last seen -- tolerated PD treatment overnight without any i ssues; dialysis nurse reported that PD fluid looked a bit more cloudy this AM (results of PD fluid testing noted); still with abdominal pain (more so in the left lower quadrant); BRBPR with bowel movements. Exam Narrative: General: WD/WN female in NAD Heart: normal S1 and S2; no rub Lungs: clear bilaterally Abdomen: soft, TTP in RLQ nondistended, positive bowel sounds Extremities: no edema or cyanosis Skin: warm and dry Objective Data Vital Signs Vital Signs: Vital Signs Temp Pulse Resp BP Pulse Ox O2 Del Method 07/25/22 08:00 Room Air 07/25/22 07:51 98 F 100 18 117/62 07/25/22 07:26 98.4 F 98 18 117/62 99 07/25/22 06:48 1
--- NOTE | 2022-07-25 10:27 | PM.PNNEP ---
Progress Note: A&P Assessment and Plan (1) End stage renal disease: Code(s): N18.6 - End stage renal disease Status: Chronic Assessment and Plan: continue nightly CCPD follow electrolytes, volume status, and clearance PD fluid cell count okay on 07/21 HOWEVER, repealt PD fluid cell count (on 07/24) abnormal peritonitis from bowel translocation(?) (2) Septic shock: Code(s): A41.9 - Sepsis, unspecified organism; R65.21 - Severe sepsis with septic shock Status: Acute Assessment and Plan: after original presentation with septic syndrome, she improved however in last 24 - 48 hours, seems worse again BP better at this time however, WBC and CRP remain quite elevated CT of abd/pelvis (on 07/24) noted -- stercoral proctitis playing a role possible peritonitis from bowel translocation GI consulted urine culture with VRE blood cultures and fluid cultures negative to date follow repeat PD fluid cultures given change in PD fluid analysis (3) Hyponatremia: Code(s): E87.1 - Hypo-osmolality and hyponatremia Status: Acute Assessment and Plan: due to dilution (fluid boluses and incomplete peritoneal dialysis (on 07/23 - 07/24) sodium better s/p 3% saline follow trend (4) Pneumonia: Code(s): J18.9 - Pneumonia, unspecified organism Status: Acute Assessment and Plan: chest x-ray shows persistent infiltrates in the right lung on antibiotics on room air (5) Right flank pain: Code(s): R10.9 - Unspecified abdominal pain Status: Acute Assessment and Plan: extensive work-up evaluation to date has been 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 CT scan (on 07/24) findings (?) follow clinical symptoms (6) Anemia: Code(s): D64.9 - Anemia, unspecified Status: Chronic Assessment and Plan: due to ESRD and acute illness on Epogen suspect some Epogen resistance give high degree of inflammation follow H/H (7) Diabetes mellitus: Onset Date: ~1995 Qualifiers: Diabetes mellitus complication status: without complication Diabetes mellitus meterman insulin use: without meterman use Diabetes mellitus type: type 2 Qualified Code(s): E11.9 - Type 2 diabetes mellitus without complications Code(s): E11.9 - Type 2 diabetes mellitus without complications Status: Chronic Assessment and Plan: on accuchecks glycemic control per hospitalists Will continue to follow. Subjective Date/time seen: 07/25/22 10:27 Chart reviewed since last seen -- tolerated PD treatment overnight without any issues; dialysis nurse reported that PD fluid looked a bit more cloudy this AM (results of PD fluid testing noted); still with abdominal pain (more so in the left lower quadrant); BRBPR with bowel movements. Exam Narrative: General: WD/WN female in NAD Heart: normal S1 and S2; no rub Lungs: clear bilaterally Abdomen: soft, TTP in RLQ nondistended, positive bowel sounds Extremities: no edema or cyanosis Skin: warm and dry Objective Data Vital Signs Vital Signs: Vital Signs Temp Pulse Resp BP Pulse Ox O2 Del Method 07/25/22 08:00 Room Air 07/25/22 07:51 98 F 100 18 117/62 07/25/22 07:26 98.4 F 98 18 117/62 99 07/25/22 06:48 107/58 L 07/25/22 06:00 87 07/25/22 04:00 110 H 07/25/22 04:00 98 Room Air 07/25/22 02:00 104 H 07/25/22 04:00 98.6 F 106 H 15 101/62 99 07/24/22 20:00 97.8 F 110 H 22 H 96/50 L 96 07/25/22 00:00 103 H 07/25/22 00:00 95 Room Air 07/24/22 22:00 111 H 07/24/22 20:00 105 H 07/24/22 20:00 95 Room Air 07/25/22 00:00 97.8 F 88 14 111/67 100 07/24/22 18:00 107 H 07/24/22 16:00 119 H 07/24/22 18:00 106 H 17 108/62 100 07/24/22 18:03 98 F 109 H 20 108/63 98 Room Air 07/24/22 16:00 100 Room Air 02
[2022-07-25 11:40] LABS: Glucose Point of Care 260 mg/dl (65-105)
--- NOTE | 2022-07-25 14:12 | WPDGICN ---
Assessment and Plan Assessment and plan (1) Constipation: Code(s): K59.00 - Constipation, unspecified Status: Acute Assessment and Plan: Patient with constipation apparently has developed since admission the hospital. states patient takes MiraLax daily at home. This is new finding compared to CT scan on admission. Patient has had some bleeding after enema suggesting trauma occurred to the rectal area. Bleeding also may be on the basis of stercoral proctitis. Plan to resume laxatives. Because she of her mental status changes NG tube will be placed for medication administration. Continue to monitor hemoglobin which currently appears stable. (2) Rectal bleeding: Code(s): K62.5 - Hemorrhage of anus and rectum Status: Acute Assessment and Plan: Rectal bleeding likely from irritation with attempted enemas for constipation. CT scan suggests she may have irritation of the rectal area because of constipation. This was not evident on CT scan 5 days ago. Will follow with you. At the present patient is not a candidate for invasive evaluation. Continued use of stool softeners laxatives are encourage will monitor hemoglobin. (3) Abdominal pain: Qualifiers: Abdominal location: generalized Qualified Code(s): R10.84 - Generalized abdominal pain Code(s): R10.9 - Unspecified abdominal pain Status: Acute Assessment and Plan: Abdominal pain may be multifactorial. Certainly she has infected peritonitis having received peritoneal dialysis. This would likely contribute to her pain additionally she is constipated which can contribute to pain and she has recently had a urinary tract infection causing significant pain in the suprapubic area. Plan to treat all these as much as feasible at this time. She is very somnolent today having only received Tylenol for pain care. (4) Peritonitis: Code(s): K65.9 - Peritonitis, unspecified Status: Acute Assessment and Plan: Patient should continue broad-spectrum antibiotics for peritonitis. Likely predisposed to this because of peritoneal dialysis. I suspect this peritonitis is caused her sepsis and septic shock. (5) Generalized weakness: Code(s): R53.1 - Weakness Status: Acute Assessment and Plan: Patient admitted with generalized weakness likely multifactorial in etiology most likely on the basis of her sepsis. (6) Pneumonia: Code(s): J18.9 - Pneumonia, unspecified organism Status: Acute (7) Septic shock: Code(s): A41.9 - Sepsis, unspecified organism; R65.21 - Severe sepsis with septic shock Status: Acute Assessment and Plan: ICU management for now. (8) Polycystic kidney disease: Code(s): Q61.3 - Polycystic kidney, unspecified Status: Chronic (9) End-stage renal disease on peritoneal dialysis: Onset Date: 06/2016 Code(s): N18.6 - End stage renal disease; Z99.2 - Dependence on renal dialysis Status: Chronic (10) Altered mental status: Code(s): R41.82 - Altered mental status, unspecified Status: Acute Assessment and Plan: Patient with mental status alteration since yesterday. Suspect this is related to sepsis. She will need NG tube for medication administration currently. Ultimately made the knee this for nutrition should her mental status changes persists. GI Consult Note Consult date/time: 07/25/22 14:12 Reason for consult: Blood in stool. HPI: Shantelle Salinas is a 66 year old female I am asked to see at the request of the hospitalist service because blood in the stool. Patient known to me from recent admission the hospital 2 weeks ago. Patient is underlying polycystic kidney disease. She is on peritoneal dialysis. She has been having right flank pain attributed to your pyelonephritis possible urinary tract infection. There was question of bleeding in to assist in her right kidney. Patient was discha
[2022-07-25] MEDS: BISACODYL 10 MG SUPPOSITORY RECTAL (15:19)
[2022-07-25 15:29] LABS: Basophils Absolute Auto 0.2 K/mm3 (0.0-0.1); Basophils Percent Auto 0.3 % (0.2-1.2); Eosinophils Absolute Auto 0.1 K/mm3 (0-0.3); Eosinophils Percent Auto 0.1 % (0-4.4); Hematocrit 27.4 % (37.0-47.0); Hemoglobin 8.8 g/dL (12.0-15.0); Immature Granulocyte Absolute 1.96 K/mm3 (0.00-0.031); Immature Granulocyte Percent A 3.8 % (0-0.5); Lymphocytes Percent Auto 1.9 % (18.3-44.2); Mean Corpuscular HGB Conc 32.1 g/dl (32-36); Mean Corpuscular Volume 99.6 fl (80-100); Mean Platelet Volume 9.2 fl (7.4-10.4); Monocytes Absolute Auto 0.9 K/mm3 (0.1-0.6); Monocytes Percent Auto 1.8 % (2.6-8.5); Neutrophils Absolute Auto 47.4 K/mm3 (1.3-6.7); Neutrophils Percent Auto 92.1 % (45.5-73.1); Nucleated Red Blood Cells Absolute Auto 0.1 K/mm3 (0.0-0.012); Nucleated Red Blood Cells Perc 0.1 % (0.0-0.2); Platelet Count Result 284 k/mm3 (150-375); Red Blood Count 2.75 M/mm3 (4.2-5.4); Red Cell Distribution Width 16.9 % (11.5-14.5)
[2022-07-25 15:37] LABS: White Blood Count 51.5 K/mm3 (4.5-10.0)
[2022-07-25 15:51] LABS: Albumin Level 2.9 g/dL (3.5-5.1); Anion Gap 10 mmol/L (8-16); Blood Urea Nitrogen 66 mg/dL (7-17); Calcium 8.6 mg/dL (8.4-10.2); Carbon Dioxide 17 mmol/L (22-30); Chloride 95 mmol/L (98-107); Estimated CRCL calculation 6 ml/min; Estimated Glomerular Filt Rate 5; Glucose 206 mg/dL (65-110); Phosphorus 4.8 mg/dL (2.5-4.5); Potassium 3.9 mmol/L (3.4-5.0); Sodium 122 mmol/L (137-145)
[2022-07-25 15:53] LABS: Band Neutrophils Percent 37 % (0-6); Lymphocytes Absolute Manual 2.06 K/mm3 (1.1-4.5); Neutrophils Absolute Manual 49.44 K/mm3 (1.7-7.2); Neutrophils Percent Manual 59 % (46-73); Platelet Estimate Adequate (Adequate); Total Cells Counted 100
[2022-07-25 15:54] LABS: Anisocytosis 1+ (NORMAL); Hypochromasia 2+ (NORMAL); Poikilocytosis 1+ (NORMAL); Polychromasia 1+ (NORMAL); Schistocytes Rare (NORMAL)
[2022-07-25 15:55] LABS: Atypical Lymphocytes Present; Burr Cells 1+ (NORMAL); Macrocytosis 1+ (NORMAL)
[2022-07-25 16:18] LABS: Glucose Point of Care 240 mg/dl (65-105)
[2022-07-25] MEDS: polyethylene glycoL 3350 17 GM POWD.PACK PO (17:55)
[2022-07-25] MEDS: GABAPENTIN 100 MG CAPSULE PO (17:55)
[2022-07-25] MEDS: MIDODRINE HCL 10 MG TABLET PO (17:55)
[2022-07-25 21:54] LABS: Glucose Point of Care 211 mg/dl (65-105)
[2022-07-26] VITALS (14 sets, daily range): BP systolic 101–126; BP diastolic 52–93; PULSE 78–121; RESP 16–19; TEMP 36.4–37.4; O2SAT 100
[2022-07-26] MEDS: metroNIDAZOLE 500 MG/ISO 100ML 500 MG/100 ML BAG 100 MG IVPB ×3 (05:04→21:47)
[2022-07-26] MEDS: CENTRAL LINE FLUSH 10 ML IV PUSH ×3 (05:05→21:47)
[2022-07-26] MEDS: LEVOTHYROXINE SODIUM 12.5 MCG TABLET PO (05:30)
[2022-07-26 06:38] LABS: Hemoglobin 8.4 g/dL (12.0-15.0); Mean Corpuscular HGB Conc 31.1 g/dl (32-36); Mean Corpuscular Hemoglobin 31.3 pg (26-34); Mean Corpuscular Volume 100.7 fl (80-100); Mean Platelet Volume 9.6 fl (7.4-10.4); Platelet Count Result 300 k/mm3 (150-375); Red Blood Count 2.68 M/mm3 (4.2-5.4); Red Cell Distribution Width 17.2 % (11.5-14.5)
[2022-07-26 06:57] LABS: Alanine Aminotransferase 17 U/L (6-35); Albumin Level 2.9 g/dL (3.5-5.1); Alkaline Phosphatase 107 U/L (38-126); Anion Gap 15 mmol/L (8-16); Aspartate Amino Transferase 20 U/L (14-36); Bilirubin,Total 0.5 mg/dL (0.2-1.3); Blood Urea Nitrogen 58 mg/dL (7-17); Calcium 8.6 mg/dL (8.4-10.2); Carbon Dioxide 17 mmol/L (22-30); Chloride 94 mmol/L (98-107); Estimated CRCL calculation 7 ml/min; Estimated Glomerular Filt Rate 6; Glucose 312 mg/dL (65-110); Magnesium 1.9 mg/dL (1.6-2.3); Phosphorus 4.8 mg/dL (2.5-4.5); Potassium 3.4 mmol/L (3.4-5.0); Sodium 126 mmol/L (137-145)
[2022-07-26 07:05] LABS: White Blood Count 56.3 K/mm3 (4.5-10.0)
[2022-07-26 07:11] LABS: Band Neutrophils Percent 20 % (0-6); Eosinophils Absolute Manual 0.56 K/mm3 (0.02-0.5); Eosinophils Percent Manual 1 % (0-4); Lymphocytes Absolute Manual 1.12 K/mm3 (1.1-4.5); Metamyelocytes Percent 2 %; Neutrophils Absolute Manual 53.48 K/mm3 (1.7-7.2); Neutrophils Percent Manual 75 % (46-73); Total Cells Counted 100
[2022-07-26 07:12] LABS: Platelet Estimate Adequate (Adequate); Schistocytes Rare (NORMAL)
[2022-07-26 07:13] LABS: Anisocytosis 1+ (NORMAL); Burr Cells 1+ (NORMAL); Macrocytosis 1+ (NORMAL); Platelet Clumps Present
[2022-07-26] MEDS: ALTEPLASE 2 MG VIAL (CATHFLO) IV PUSH ×3 (08:03→08:05)
[2022-07-26] MEDS: SEVELAMER CARBONATE 800 MG TABLET 5600 MG PO ×3 (08:10→16:20)
[2022-07-26] MEDS: polyethylene glycoL 3350 17 GM POWD.PACK PO ×2 (08:10→16:20)
[2022-07-26] MEDS: allopurinoL 150 MG TABLET PO (08:11)
[2022-07-26] MEDS: GABAPENTIN 100 MG CAPSULE PO ×3 (08:12→16:20)
[2022-07-26] MEDS: MIDODRINE HCL 10 MG TABLET PO ×3 (08:12→16:20)
[2022-07-26] MEDS: LIDOCAINE 5% PATCH 2 PATCH TOPICAL (08:13)
[2022-07-26 08:37] LABS: Glucose Point of Care 314 mg/dl (65-105)
--- NOTE | 2022-07-26 08:41 | PM.IMPN ---
Progress Note: A&P Assessment and Plan (1) Septic shock: Code(s): A41.9 - Sepsis, unspecified organism; R65.21 - Severe sepsis with septic shock Status: Acute Assessment and Plan: Septic shock present on admission with HoTN, tachycardic, elevated WBC/Procal/CRP.?HoTN could be exacerbated by dehydration. CXR shows persistent infiltrates in right mid and lower lung which may be pneumonia (noted in the past and possibly chronic?) BCx 07/20 negative; Peritoneal Cx 07/21 NGTD; Left hip Cx 07/21 NGTD UCx 07/22 growing 100K cololnies VRE sensitive only to Macrobid (but suspect contaminant or colonizer) Peritoneal Fluid 07/24: WBC 2675 with 61% neutrophils. Peritoneal Cx 07/24 NGTD; No fungal elements. She was started on Aztreonam and Vanco. Levophed infusion started on admission and was able to be weaned off 07/21; also treated with IV fluids and Albumin. Solu-Cortef started but has since been stopped. Midodrine added 07/21. Concern for peritonitis given exam findings on 07/24. BP soft and WBC climbing. Abx adjusted to Primaxin, Flagyl and vanco. CT A/P scan 07/24 showing large amount of retained fecal material in the rectum which is distended. Mild perirectal fluid/inflammation extending into the presacral space. Consider stercoral proctitis. WBC worse again today at 56K and she is confused. Remains on room air. BP remaining stable. Able to pass some stools with current treatment. Appreciate GI input. Check Ammonia level. Repeat CRP and procal. Continue current IV abx. Consider anti-fungal treatment but no indication for this at this point. She remains NPO except meds. (2) Peritonitis: Code(s): K65.9 - Peritonitis, unspecified Status: Acute Assessment and Plan: Peritoneal fluid 07/21 showing no WBC/1 RBC. Cx NGTD. Peritonitis was ruled out but now having increasing pain so testing repeated. Peritoneal fluid 07/24 showing 500RBC/2675WBC with 61% neutrophils c/w peritonitis. CT Abd/pelvis as above. Now having rectal bleeding felt related to probable stecoral ulcer. Repeat cultures NGTD Continue current IV abx. (3) Constipation: Code(s): K59.00 - Constipation, unspecified Status: Acute Assessment and Plan: CT scan as mentioned above. Now having rectal bleeding felt related to stecoral ulcer. Soap suds enema given and Miralax started. Consider microperforation given the perirectal inflammation but unclear since she does have PD. GI following. Continue Miralax BID. (4) Hyponatremia: Code(s): E87.1 - Hypo-osmolality and hyponatremia Status: Acute Assessment and Plan: Na dropped to 117 and NS 3% given. [place] related to ESRD and HD. This morning, sodium stable at 126 Follow. Appreciate nephrology input. (5) Trochanteric bursitis, left hip: Code(s): M70.62 - Trochanteric bursitis, left hip Status: Acute Assessment and Plan: CT scan of the hip showed severe left trochanteric bursitis with fluid collection measuring 8.4 x 2.4 x 12.0 cm. Close to 200 mL of fluid was removed on 07/21. Culture sent and are no growth. Discussed with orthopedics. Fluid collection may be relate to to her peritoneal dialysis. Follow up on cultures. Continue abx as above (6) Pneumonia: Code(s): J18.9 - Pneumonia, unspecified organism Status: Acute Assessment and Plan: CXR showing persistent right mid and lower lung field infiltrates. Not treated with abx last admission (07/13-07/16) but findings more chronic appearing. Abx started here. Cultures as above. Remains on room air. Follow (7) Hip pain: Code(s): M25.559 - Pain in unspecified hip Status: Acute Assessment and Plan: Hip CT showing moderate left hip OA and severe left trochanteric bursitis with large fluid collection at 8.4x12cm. As above. (8) Diabetes mellitus: Onset Date: ~1995 Qualifiers: Diabetes mellitus complication status: without complication Megan
[2022-07-26] MEDS: INSULIN ASPART (*BKC) 100 UNITS/ML SUB-Q ×2 (09:18→11:50)
[2022-07-26] MEDS: INSULIN GLARGINE (*BKC) 100 UNITS/ML 15 UNITS SUB-Q (09:18)
--- NOTE | 2022-07-26 09:30 | PM.PNNEP ---
Progress Note: A&P Assessment and Plan (1) End stage renal disease: Code(s): N18.6 - End stage renal disease Status: Chronic Assessment and Plan: continue nightly CCPD follow electrolytes, volume status, and clearance PD fluid cell count okay on 07/21 HOWEVER, repealt PD fluid cell count (on 07/24) abnormal peritonitis from bowel translocation(?) (2) Septic shock: Code(s): A41.9 - Sepsis, unspecified organism; R65.21 - Severe sepsis with septic shock Status: Acute Assessment and Plan: after original presentation with septic syndrome, she improved however in last 24 - 48 hours, seems worse again BP better at this time however, WBC and CRP remain quite elevated CT of abd/pelvis (on 07/24) noted -- stercoral proctitis playing a role possible peritonitis from bowel translocation GI consulted urine culture with VRE blood cultures and fluid cultures negative to date follow repeat PD fluid cultures given change in PD fluid analysis (3) Altered mental status: Code(s): R41.82 - Altered mental status, unspecified Status: Acute Assessment and Plan: related to infection(?) head CT ordered for today follow trend of mentation (4) Hyponatremia: Code(s): E87.1 - Hypo-osmolality and hyponatremia Status: Acute Assessment and Plan: due to dilution (fluid boluses and incomplete peritoneal dialysis (on 07/23 - 07/24) sodium better s/p 3% saline follow trend (5) Pneumonia: Code(s): J18.9 - Pneumonia, unspecified organism Status: Acute Assessment and Plan: chest x-ray shows persistent infiltrates in the right lung on antibiotics on room air (6) Right flank pain: Code(s): R10.9 - Unspecified abdominal pain Status: Acute Assessment and Plan: extensive work-up evaluation to date has been 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 to recent CT scan (on 07/24) findings (?) follow clinical symptoms (7) Anemia: Code(s): D64.9 - Anemia, unspecified Status: Chronic Assessment and Plan: due to ESRD and acute illness on Epogen suspect some Epogen resistance give high degree of inflammation follow H/H (8) Diabetes mellitus: Onset Date: ~1995 Qualifiers: Diabetes mellitus complication status: without complication 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 Subjective Date/time seen: 07/26/22 09:30 Tolerated peritoneal dialysis treatment overnight without any issues or problems; mental status has significantly declined since last seen -- extremely confused at the time of my visit, NG tube placed yesterday afternoon for medication administration; head CT ordered given altered mental status. Exam Narrative: General: WD/WN female in NAD but confused Heart: normal S1 and S2; no rub Lungs: clear bilaterally Abdomen: soft, nondistended, positive bowel sounds Extremities: no edema or cyanosis Skin: warm and intact Objective Data Vital Signs Vital Signs: Vital Signs Temp Pulse Resp BP Pulse Ox O2 Del Method 07/26/22 08:00 98.2 F 112 H 19 126/93 H 07/26/22 06:00 121 H 07/26/22 04:00 109 H 07/26/22 04:00 100 Room Air 07/26/22 04:00 97.5 F L 109 H 16 125/54 L 100 07/26/22 02:00 100 07/26/22 00:00 107 H 07/26/22 00:00 98.8 F 106 H 17 101/59 L 100 07/25/22 22:00 110 H 07/25/22 23:45 100 Room Air 07/25/22 19:10 99.9 F H 94 15 99/52 L 98 07/25/22 20:00 114 H 18 131/57 L 100 07/25/22 20:00 114 H 07/25/22 20:00 100 Room Air 07/07
--- NOTE | 2022-07-26 09:30 | P.PNNP_ITS ---
Progress Note: A&P Assessment and Plan (1) End stage renal disease: Code(s): N18.6 - End stage renal disease Status: Chronic Assessment and Plan: * continue nightly CCPD * follow electrolytes, volume status, and clearance * PD fluid cell count okay on 07/21 * HOWEVER, repealt PD fluid cell count (on 07/24) abnormal * peritonitis from bowel translocation(?) (2) Septic shock: Code(s): A41.9 - Sepsis, unspecified organism; R65.21 - Severe sepsis with septic shock Status: Acute Assessment and Plan: * after original presentation with septic syndrome, she improved * however in last 24 - 48 hours, seems worse again * BP better at this time * however, WBC and CRP remain quite elevated * CT of abd/pelvis (on 07/24) noted -- stercoral proctitis playing a role * possible peritonitis from bowel translocation * GI consulted * urine culture with VRE * blood cultures and fluid cultures negative to date * follow repeat PD fluid cultures given change in PD fluid analysis (3) Altered mental status: Code(s): R41.82 - Altered mental status, unspecified Status: Acute Assessment and Plan: * related to infection(?) * head CT ordered for today * follow trend of mentation (4) Hyponatremia: Code(s): E87.1 - Hypo-osmolality and hyponatremia Status: Acute Assessment and Plan: * due to dilution (fluid boluses and incomplete peritoneal dialysis (on 07/23 - 07/24) * sodium better s/p 3% saline * follow trend (5) Pneumonia: Code(s): J18.9 - Pneumonia, unspecified organism Status: Acute Assessment and Plan: * chest x-ray shows persistent infiltrates in the right lung * on antibiotics * on room air (6) Right flank pain: Code(s): R10.9 - Unspecified abdominal pain Status: Acute Assessment and Plan: * extensive work-up evaluation to date has been 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 * related to recent CT scan (on 07/24) findings (?) * follow clinical symptoms (7) Anemia: Code(s): D64.9 - Anemia, unspecified Status: Chronic Assessment and Plan: * due to ESRD and acute illness * on Epogen * suspect some Epogen resistance give high degree of inflammation * follow H/H (8) Diabetes mellitus: Onset Date: ~1995 Qualifiers: Diabetes mellitus complication status: without complication Diabetes mellitus usp insulin use: without watermaster use Diabetes mellitus type: type 2 Qualified Code(s): E11.9 - Type 2 diabetes mellitus without complications Code(s): E11.9 - Type 2 diabetes mellitus without complications Status: Chronic Assessment and Plan: * on accuchecks * glycemic control per hospitalists Will continue to follow. Subjective Date/time seen: 07/26/22 09:30 Tolerated peritoneal dialysis treatment overnight without any issues or problems; mental status has significantly declined since last seen -- extremely confused at the time of my visit, NG tube placed yesterday afternoon for medication administration; head CT ordered given altered mental status. Exam Narrative: General: WD/WN female in NAD but confused Heart: normal S1 and S2; no rub Lungs: clear bilaterally Abdomen: soft, nondistended, positive bowel sounds Extremities: no edema or cyanosis Skin: warm and intact Objective Data Vital Signs Vital Signs:
--- NOTE | 2022-07-26 09:38 | WPDGIPROGNO ---
Progress Note: A&P Assessment and Plan (1) Constipation: Code(s): K59.00 - Constipation, unspecified Status: Acute Assessment and Plan: Patient appears be constipated by findings on CT scan. No recent good bowel movement. Plan to continue laxatives and enemas to relieve this. (2) Rectal bleeding: Code(s): K62.5 - Hemorrhage of anus and rectum Status: Acute Assessment and Plan: Patient continues to have a small amount of rectal bleeding. This appears to correlate with findings on CT scan proctitis from fecal load. Will follow hemoglobin. Tree conservatively at present. (3) Abdominal pain: Code(s): R10.9 - Unspecified abdominal pain Status: Acute Assessment and Plan: Abdominal pain could be multifactorial. Most likely from peritonitis. Could be from urinary tract infection as she was recently treated for this. Also now with fecal loading constipation contributing. (4) Altered mental status: Code(s): R41.82 - Altered mental status, unspecified Status: Acute Assessment and Plan: Patient will obtain ended this morning etiology unclear. NG tube for medications. May be needed for nutrition. To have a CT scan this morning. (5) Pneumonia: Code(s): J18.9 - Pneumonia, unspecified organism Status: Acute (6) Type 2 diabetes mellitus: Onset Date: 1995 Code(s): E11.9 - Type 2 diabetes mellitus without complications Status: Acute (7) Polycystic kidney disease: Code(s): Q61.3 - Polycystic kidney, unspecified Status: Chronic (8) End-stage renal disease on peritoneal dialysis: Onset Date: 06/2016 Code(s): N18.6 - End stage renal disease; Z99.2 - Dependence on renal dialysis Status: Chronic Assessment and Plan: Patient may have peritonitis related to peritoneal dialysis callus that her. Nephrology service following. (9) Peritonitis: Code(s): K65.9 - Peritonitis, unspecified Status: Acute Assessment and Plan: Patient with marked leukocytosis admitted to the ICU with sepsis. Likely on the basis appear to night is. Continue broad-spectrum antibiotics. Cultures pending. Supportive care for now. Subjective Date/time seen: 07/26/22 09:38 Interval history: Patient remains obtunded today. Unable to add any useful history. NG tube in place for med administration. Nursing staff reports a small amount of stool. Minimal small amount of bright red blood associated with this. Review of Systems Review of Systems: ROS unobtainable: Yes unobtainable due to mental status Exam Narrative: Physical exam reveals patient be somnolent. NG tube is in place. HEENT exam reveals no icterus. Lungs reveal scattered rhonchi. Heart without murmur. Abdomen is obese. Bowel sounds are present soft milder discomfort today. She appears somewhat tender in the suprapubic area. Objective Data Vital Signs Vital Signs: Vital Signs - 24 hr 07/25/22 11:43 07/25/22 16:00 07/25/22 10:00 Temperature 97.5 F L 97.9 F Pulse Rate 106 H 111 H 104 H Respiratory Rate 20 Blood Pressure 109/64 107/51 L Pulse Oximetry 100 99 Oxygen Delivery 07/25/22 12:00 07/25/22 14:00 07/25/22 16:00 Temperature Pulse Rate 111 H 103 H 111 H Respiratory Rate Blood Pressure Pulse Oximetry Oxygen Delivery 07/25/22 12:00 07/25/22 16:00 07/25/22 18:00 Temperature Pulse Rate 111 H Respiratory Rate Blood Pressure Pulse Oximetry Oxygen Delivery Room Air Room Air 07/25/22 20:00 07/25/22 20:00 07/25/22 20:00 Temperature Pulse Rate 114 H 114 H Respiratory Rate 18 Blood Pressure 131/57 L Pulse Oximetry 100 100 Oxygen Delivery Room Air 07/25/22 19:10 07/25/22 23:45 07/25/22 22:00 Temperature 99.9 F H Pulse Rate 94 110 H Respiratory Rate 15 Blood Pressure 99/52 L Pulse Oximetry 98 100 Oxygen Delivery Room Air
[2022-07-26] MEDS: PANTOPRAZOLE SODIUM IV 40 MG VIAL IV PUSH (10:02)
[2022-07-26] MEDS: EPOETIN ALFA-EPBX 10,000 UNITS/ML VIAL 10000 UNITS SUB-Q (10:03)
[2022-07-26 10:49] LABS: Reference Lab Test Result Not Detected
[2022-07-26] MEDS: LINEZOLID 600 MG/300 ML 600 MG/300 ML SOLN 300 MG IVPB ×2 (11:06→21:46)
[2022-07-26 11:53] LABS: Glucose Point of Care 277 mg/dl (65-105)
[2022-07-26 12:20] LABS: Hematocrit 24.1 % (37.0-47.0); Hemoglobin 7.7 g/dL (12.0-15.0); Mean Platelet Volume 9.2 fl (7.4-10.4); Platelet Count Result 274 k/mm3 (150-375); Red Blood Count 2.41 M/mm3 (4.2-5.4); Red Cell Distribution Width 16.9 % (11.5-14.5)
[2022-07-26 12:39] LABS: White Blood Count 53.3 K/mm3 (4.5-10.0)
[2022-07-26 12:46] LABS: Ammonia < 9 umol/L (9-30)
[2022-07-26 12:53] LABS: Albumin Level 2.5 g/dL (3.5-5.1); Anion Gap 10 mmol/L (8-16); Blood Urea Nitrogen 60 mg/dL (7-17); Calcium 8.1 mg/dL (8.4-10.2); Carbon Dioxide 19 mmol/L (22-30); Chloride 92 mmol/L (98-107); Estimated CRCL calculation 7 ml/min; Estimated Glomerular Filt Rate 6; Glucose 222 mg/dL (65-110); Phosphorus 4.5 mg/dL (2.5-4.5); Potassium 3.2 mmol/L (3.4-5.0); Sodium 121 mmol/L (137-145)
[2022-07-26 12:59] LABS: Procalcitonin 6.3 ng/mL
[2022-07-26 13:14] LABS: CRP 39.3 mg/dL (<1.0)
[2022-07-26 13:48] LABS: Band Neutrophils Percent 16 % (0-6); Neutrophils Percent Manual 84 % (46-73); Total Cells Counted 100
[2022-07-26 13:49] LABS: Platelet Estimate Adequate (Adequate)
[2022-07-26 13:51] LABS: Macrocytosis 1+ (NORMAL); Schistocytes 1+ (NORMAL)
[2022-07-26 13:52] LABS: Anisocytosis 2+ (NORMAL)
[2022-07-26] MEDS: SODIUM CHLORIDE 3% 240 ML 80 ML IV CONT (14:57)
[2022-07-26] MEDS: FLUTICASONE PROPIONATE 0.05% NA SPR 16 GM BTL (*BKC) 1 SPRAY NASAL (16:19)
[2022-07-26 16:26] LABS: Glucose Point of Care 136 mg/dl (65-105)
[2022-07-26 16:28] LABS: Hematocrit 23.5 % (37.0-47.0); Hemoglobin 7.5 g/dL (12.0-15.0)
[2022-07-26] MEDS: POTASSIUM CHLORIDE 20 MEQ PACKET (FOR LIQUID) FEED TUBE (16:52)
[2022-07-26] MEDS: MAGNESIUM SULF 1 GM/D5W 100 ML 1 GM/100 ML BAG IVPB (16:52)
[2022-07-26 19:20] LABS: Magnesium 2.1 mg/dL (1.6-2.3)
[2022-07-26 19:38] LABS: Anion Gap 8 mmol/L (8-16); Blood Urea Nitrogen 64 mg/dL (7-17); Calcium 8.1 mg/dL (8.4-10.2); Carbon Dioxide 19 mmol/L (22-30); Chloride 95 mmol/L (98-107); Estimated CRCL calculation 7 ml/min; Estimated Glomerular Filt Rate 6; Glucose 112 mg/dL (65-110); Potassium 3.6 mmol/L (3.4-5.0); Sodium 122 mmol/L (137-145)
[2022-07-27] VITALS (28 sets, daily range): BP systolic 98–134; BP diastolic 56–70; PULSE 90–111; RESP 13–22; TEMP 36.5–37.1; O2SAT 99–100
[2022-07-27 04:43] LABS: Hematocrit 26.5 % (37.0-47.0); Hemoglobin 8.4 g/dL (12.0-15.0); Mean Corpuscular HGB Conc 31.7 g/dl (32-36); Mean Corpuscular Hemoglobin 31.9 pg (26-34); Mean Corpuscular Volume 100.8 fl (80-100); Mean Platelet Volume 9.6 fl (7.4-10.4); Platelet Count Result 302 k/mm3 (150-375); Red Blood Count 2.63 M/mm3 (4.2-5.4); Red Cell Distribution Width 17.5 % (11.5-14.5)
[2022-07-27 05:07] LABS: White Blood Count 57.7 K/mm3 (4.5-10.0)
[2022-07-27 05:21] LABS: Band Neutrophils Percent 15 % (0-6); Lymphocytes Absolute Manual 3.46 K/mm3 (1.1-4.5); Metamyelocytes Percent 1 %; Monocytes Absolute Manual 0.57 K/mm3 (0.1-0.90); Monocytes Percent Manual 1 % (3-9); Neutrophils Absolute Manual 53.08 K/mm3 (1.7-7.2); Neutrophils Percent Manual 77 % (46-73); Platelet Estimate Adequate (Adequate); Total Cells Counted 100
[2022-07-27 05:22] LABS: Macrocytosis 1+ (NORMAL); Poikilocytosis 3+ (NORMAL)
[2022-07-27 05:23] LABS: Acanthocytes 2+ (NORMAL); Basophilic Stippling 1+ (NORMAL); Hypochromasia 1+ (NORMAL); Schistocytes 1+ (NORMAL)
[2022-07-27 05:24] LABS: Burr Cells 2+ (NORMAL); Crenated RBC 2+ (NORMAL)
[2022-07-27 05:25] LABS: Alanine Aminotransferase 14 U/L (6-35); Albumin Level 2.6 g/dL (3.5-5.1); Alkaline Phosphatase 114 U/L (38-126); Anion Gap 11 mmol/L (8-16); Aspartate Amino Transferase 21 U/L (14-36); Bilirubin,Total 0.5 mg/dL (0.2-1.3); Blood Urea Nitrogen 57 mg/dL (7-17); Calcium 8.4 mg/dL (8.4-10.2); Carbon Dioxide 20 mmol/L (22-30); Chloride 96 mmol/L (98-107); Estimated CRCL calculation 8 ml/min; Estimated Glomerular Filt Rate 6; Glucose 250 mg/dL (65-110); Magnesium 2.1 mg/dL (1.6-2.3); Phosphorus 4.3 mg/dL (2.5-4.5); Potassium 3.4 mmol/L (3.4-5.0); Sodium 127 mmol/L (137-145)
[2022-07-27] MEDS: metroNIDAZOLE 500 MG/ISO 100ML 500 MG/100 ML BAG 100 MG IVPB ×3 (06:09→21:09)
[2022-07-27] MEDS: LEVOTHYROXINE SODIUM 12.5 MCG TABLET PO (06:09)
[2022-07-27] MEDS: CENTRAL LINE FLUSH 10 ML IV PUSH ×3 (06:10→21:14)
[2022-07-27 07:25] LABS: Glucose Point of Care 214 mg/dl (65-105)
--- NOTE | 2022-07-27 07:58 | WPDNEUROSGCN ---
[facility] Past Medical History Medical History Anemia of chronic disease Asthma Chronic back pain End-stage renal disease on peritoneal dialysis (06/2016) On transplant list Gastritis Gout Hypertension (1983) Hypothyroidism (acquired) Polycystic kidney disease Seasonal rhinitis Type 2 diabetes mellitus (1995) Vitamin D deficiency Surgical History Surgical History History of appendectomy (01/1980) History of cardiac catheterization History of cholecystectomy (04/1995) History of colonoscopy History of hernia repair History of partial hysterectomy (11/1993) History of tonsillectomy (06/1959) History of tubal ligation (06/1976) History of umbilical hernia repair (06/1979) Family History Family History Mother Family history of diabetes mellitus in first degree relative Polycystic kidney disease Heart disease Hypertension Father Family history of lung cancer Sibling Polycystic kidney disease Sibling Diabetes mellitus Heart disease Other Malignant neoplasm of prostate Social History Social History Social History: Surrogate medical decision maker: Brennon Salinas, spouse. Code status: Do not resuscitate. Smoking status: Never smoker Alcohol intake: never Substance use: never Substance use type: does not use Lack of Transportation: No Lack of Food: Never True Current Housing: I Have Housing Concerned About Future Housing: No Difficulty Paying Gas/Electric Bills: No Difficulty Paying for Meds: No Currently Unemployed: No Education: Grade School Difficulty w/ Childcare or Family Care: No Living arrangements: with family Additional living arrangements comments: Lives with in [place]. They have 3 children. 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 Spiritual care concerns: No Agree to blood products: Yes Meds Home Medications and Allergies Home Medications Medication Instructions Recorded Confirmed Type ondansetron HCl 4 mg tablet 4 mg PO Q6H PRN nausea and 07/23/19 07/20/22 Rx (Zofran) vomiting #10 tabs furosemide 80 mg tablet 80 mg PO BID 03/25/20 07/20/22 History omeprazole 20 mg capsule,delayed 20 mg PO DAILY #90 caps 03/25/20 07/20/22 Rx release vitamin B complex-vitamin C-folic 1 tablet PO DAILY 03/25/20 07/20/22 History acid 0.8 mg tablet (Renal-Yojana) lidocaine 5 % topical patch 2 patch topical DAILY #15 ea 10/28/20 07/20/22 Rx (Lidoderm) cholecalciferol (vitamin D3) 50 50 mcg PO BID 12/22/20 07/20/22 History mcg (2,000 unit) capsule cinnamon bark 500 mg capsule 1,000 mg PO BID 12/22/20 07/20/22 History cranberry 500 mg capsule 500 mg PO DAILY 12/22/20 07/20/22 History sevelamer carbonate 800 mg tablet 5,600 mg PO TIDWM 12/22/20 07/20/22 History levothyroxine 25 mcg tablet 12.5 mcg PO DAILY #45 tabs 09/13/21 07/20/22 Rx meclizine 12.5 mg tablet 12.5 mg PO DAILY PRN dizziness #30 09/13/21 07/20/22 Rx tabs allopurinol 300 mg tablet 150 mg PO DAILY #90 tabs 10/18/21 07/20/22 Rx pioglitazone 30 mg tablet 30 mg PO DAILY #90 tabs 04/04/22 07/20/22 Rx fluticasone propionate 50 1 spray intranasal BID 06/16/22 07/20/22 History mcg/actuation nasal spray,suspension (Flonase Allergy Relief) loratadine 10 mg tablet (Claritin) 10 mg PO DAILY PRN Congestion 06/16/22 07/20/22 History polyethylene glycol 3350 17 gram 17 g PO QAM 06/16/22 07/20/22 History oral powder packet (Miralax) gabapentin 100 mg capsule 100 mg PO TID 1 month #90 caps 07/17/22 07/20/22 Rx tizanidine 2 mg tablet 2 mg PO QHS 1 month #30 tabs 07/17/22 07/20/22 Rx Allergies Allergy/AdvReac Type Severity Reaction Status Date / Time azithromycin Allergy Severe Hives / Verified 07/13/22 13:50
[2022-07-27] MEDS: LINEZOLID 600 MG/300 ML 600 MG/300 ML SOLN 300 MG IVPB ×2 (08:30→21:08)
[2022-07-27] MEDS: PANTOPRAZOLE SODIUM IV 40 MG VIAL IV PUSH (08:33)
[2022-07-27] MEDS: ALTEPLASE 2 MG VIAL (CATHFLO) IV PUSH (08:38)
[2022-07-27] MEDS: polyethylene glycoL 3350 17 GM POWD.PACK PO ×2 (08:39→16:44)
[2022-07-27] MEDS: SEVELAMER CARBONATE 800 MG TABLET 5600 MG PO ×3 (08:40→16:44)
[2022-07-27] MEDS: LIDOCAINE 5% PATCH 2 PATCH TOPICAL (08:40)
[2022-07-27] MEDS: allopurinoL 150 MG TABLET PO (08:40)
--- NOTE | 2022-07-27 08:40 | WPDGIPROGNO ---
Progress Note: A&P Assessment and Plan (1) Altered mental status: Code(s): R41.82 - Altered mental status, unspecified Status: Acute Assessment and Plan: Patient with altered mental status for 2-3 days now. Neurology to see patient. CT scan of the head yesterday suggest subarachnoid hemorrhage. This could also be metabolic in nature given her significant comorbid diseases. White count quite elevated suggesting infectious process felt to be peritonitis. Patient unable to eat. NG tube in place for medication administration. may need to start tube feedings (2) Rectal bleeding: Code(s): K62.5 - Hemorrhage of anus and rectum Status: Acute Assessment and Plan: rectal bleeding resolved. Likely on the basis constipation. CT scan after 5 days of admission suggest stercoral proctitis on the basis constipation. Constipation now relieved. No additional bleeding noted. Continue stool softeners. Hemoglobin has remained stable. (3) Constipation: Code(s): K59.00 - Constipation, unspecified Status: Acute Assessment and Plan: Constipation improving. Several bowel movements noted last night. No additional bleeding. Laxative routine with MiraLax will be continued on a daily basis. Abdomen is soft currently nontender. (4) Abdominal pain: Code(s): R10.9 - Unspecified abdominal pain Status: Acute Assessment and Plan: Abdominal pain appears improved. Difficult to assess with altered mental status. Differential includes peritonitis, urinary tract infection or recent constipation. (5) Pneumonia: Code(s): J18.9 - Pneumonia, unspecified organism Status: Acute (6) Type 2 diabetes mellitus: Onset Date: 1995 Code(s): E11.9 - Type 2 diabetes mellitus without complications Status: Acute (7) Peritonitis: Code(s): K65.9 - Peritonitis, unspecified Status: Acute Assessment and Plan: Patient with markedly elevated white count [id number] today. Moose be on the basis of peritonitis. Patient had been receiving peritoneal dialysis. Continue antibiotics and supportive care for now. (8) End-stage renal disease on peritoneal dialysis: Onset Date: 06/2016 Code(s): N18.6 - End stage renal disease; Z99.2 - Dependence on renal dialysis Status: Chronic Assessment and Plan: Nephrology service following. Subjective Date/time seen: 07/27/22 08:40 Interval history: Patient remains obtunded today. Unable to add any useful. NG tube in place. Had soft bowel movements according to nursing staff. No significant bleeding described at present. Review of Systems Review of Systems: ROS unobtainable: Yes unobtainable due to mental status Exam Narrative: Physical exam reveals patient lying in bed. Vital signs are stable. HEENT exam reveals no icterus. NG tube in place. Throat is clear. Lungs reveal scattered rhonchi. Heart without murmur. Abdomen is soft bowel sounds are present no localized tenderness noted at present. Objective Data Vital Signs Vital Signs: Vital Signs - 24 hr 07/26/22 10:00 07/26/22 12:00 07/26/22 14:00 Temperature Pulse Rate 112 H 109 H 91 Respiratory Rate Blood Pressure Pulse Oximetry Oxygen Delivery 07/26/22 12:00 07/26/22 12:00 07/26/22 15:29 Temperature 99.3 F Pulse Rate 111 H Respiratory Rate 18 Blood Pressure 126/57 L Pulse Oximetry 100 100 100 Oxygen Delivery Room Air Room Air 07/26/22 16:00 07/26/22 16:00 07/26/22 18:00 Temperature 98.2 F Pulse Rate 96 94 78 Respiratory Rate 18 Blood Pressure 122/56 L Pulse Oximetry 100 Oxygen Delivery 07/26/22 19:15 07/26/22 20:00 07/26/22 20:00 Temperature 98.3 F Pulse Rate 95 99 95 Respiratory Rate 16 16 Blood Pressure 104/59 L Pulse Oximetry 100 100 Oxygen Delivery Room Air Room Air 07/26/22 20:00 07/26/22 22:00 07/27/22 00:00 Temperature 98.2
[2022-07-27] MEDS: MIDODRINE HCL 10 MG TABLET PO ×3 (08:41→16:44)
[2022-07-27] MEDS: INSULIN GLARGINE (*BKC) 100 UNITS/ML 15 UNITS SUB-Q (08:41)
[2022-07-27] MEDS: INSULIN ASPART (*BKC) 100 UNITS/ML SUB-Q (08:41)
[2022-07-27] MEDS: FLUTICASONE PROPIONATE 0.05% NA SPR 16 GM BTL (*BKC) 1 SPRAY NASAL (08:42)
[2022-07-27] MEDS: GABAPENTIN 100 MG CAPSULE PO ×3 (08:42→16:45)
[2022-07-27 11:43] LABS: Glucose Point of Care 193 mg/dl (65-105)
--- NOTE | 2022-07-27 11:56 | WPDNEUROSGCN ---
Assessment and Plan Assessment and plan (1) Subarachnoid hemorrhage: Code(s): I60.9 - Nontraumatic subarachnoid hemorrhage, unspecified Status: Acute Plan this patient is a 66-year-old female who is complex medically and has a left parietal subarachnoid and potentially intraparenchymal hemorrhage of the brain without known cause. She does have a history of falling frequently but not observed fall that resulted in this particular injury. It is not in a place that I would consider it to be aneurysmal in nature. However, that does not rule out vascular or neoplastic potential etiologies. The best study to rule out serious anatomical issues that could result in spontaneous hemorrhage would be a CT angiogram. This may not be possible given her kidney function. an MRI with MRA is another possible test but would require contrast as well. In this case, the contrast is water-soluble, that is gadolinium. I am concerned about this patient being in [facility] given that any intracranial complications room regarding this hemorrhage or its causes cannot be dealt with at this institution. its relationship to her mental status changes a is unknown. She has many reasons or potential causes of mental status changes. Review of Systems Review of Systems: ROS unobtainable: Yes unobtainable due to mental status PMFSH Past Medical History Medical History Anemia of chronic disease Asthma Chronic back pain End-stage renal disease on peritoneal dialysis (06/2016) On transplant list Gastritis Gout Hypertension (1983) Hypothyroidism (acquired) Polycystic kidney disease Seasonal rhinitis Type 2 diabetes mellitus (1995) Vitamin D deficiency Surgical History Surgical History History of appendectomy (01/1980) History of cardiac catheterization History of cholecystectomy (04/1995) History of colonoscopy History of hernia repair History of partial hysterectomy (11/1993) History of tonsillectomy (06/1959) History of tubal ligation (06/1976) History of umbilical hernia repair (06/1979) Family History Family History Mother Family history of diabetes mellitus in first degree relative Polycystic kidney disease Heart disease Hypertension Father Family history of lung cancer Sibling Polycystic kidney disease Sibling Diabetes mellitus Heart disease Other Malignant neoplasm of prostate Social History Social History Social History: Surrogate medical decision maker: Brennon Salinas, spouse. Code status: Do not resuscitate. Smoking status: Never smoker Alcohol intake: never Substance use: never Substance use type: does not use Lack of Transportation: No Lack of Food: Never True Current Housing: I Have Housing Concerned About Future Housing: No Difficulty Paying Gas/Electric Bills: No Difficulty Paying for Meds: No Currently Unemployed: No Education: Grade School Difficulty w/ Childcare or Family Care: No Living arrangements: with family Additional living arrangements comments: Lives with in [place]. They have 3 children. 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 Spiritual care concerns: No Agree to blood products: Yes Meds Home Medications and Allergies Home Medications Medication Instructions Recorded Confirmed Type ondansetron HCl 4 mg tablet 4 mg PO Q6H PRN nausea and 07/23/19 07/20/22 Rx (Zofran) vomiting #10 tabs furosemide 80 mg tablet 80 mg PO BID 03/25/20 07/20/22 History omeprazole 20 mg capsule,delayed 20 mg PO DAILY #90 caps 03/25/20 07/20/22 Rx release vitamin B complex-vitamin C-folic 1 tablet PO DAILY 03/25/20 07/20/22 History acid 0.8 mg tablet (Renal-Yojana) lidocaine 5
--- NOTE | 2022-07-27 12:39 | P.PNNP_ITS ---
Progress Note: A&P Assessment and Plan (1) End stage renal disease: Code(s): N18.6 - End stage renal disease Status: Chronic Assessment and Plan: * continue nightly CCPD * follow electrolytes, volume status, and clearance * PD fluid cell count okay on 07/21 * HOWEVER, repealt PD fluid cell count (on 07/24) abnormal * peritonitis from bowel translocation(?) -- however, cultures remain negative (2) Septic shock: Code(s): A41.9 - Sepsis, unspecified organism; R65.21 - Severe sepsis with septic shock Status: Acute Assessment and Plan: * after original presentation with septic syndrome, she improved * however seems worse now if the last few days * BP better at this time * however, WBC and CRP remain quite elevated * CT of abd/pelvis (on 07/24) noted -- stercoral proctitis playing a role? * possible peritonitis from bowel translocation? * GI recommendations noted * urine culture with VRE * blood cultures and fluid cultures negative to date * follow repeat PD fluid cultures (3) Altered mental status: Code(s): R41.82 - Altered mental status, unspecified Status: Acute Assessment and Plan: * related to infection(?) * recent head CT with left parietal subarachnoid and potentially intraparenchymal hemorrhage of the brain * Neurosurgery recommendations noted -- not opposed to CT Angiogram from renal perspective for better assessment... * follow trend of mentation (4) Hyponatremia: Code(s): E87.1 - Hypo-osmolality and hyponatremia Status: Acute Assessment and Plan: * due to dilution (fluid boluses and incomplete peritoneal dialysis (on 07/23 - 07/24) * sodium better s/p 3% saline and more aggressive dialysis * follow trend (5) Pneumonia: Code(s): J18.9 - Pneumonia, unspecified organism Status: Acute Assessment and Plan: * chest x-ray shows persistent infiltrates in the right lung * on antibiotics * on room air (6) Right flank pain: Code(s): R10.9 - Unspecified abdominal pain Status: Acute Assessment and Plan: * extensive work-up evaluation to date has been unrevealing CLINICAL AUDIOLOGIST * related to recent CT scan (on 07/24) findings (?) * follow clinical symptoms (7) Anemia: Code(s): D64.9 - Anemia, unspecified Status: Chronic Assessment and Plan: * due to ESRD and acute illness * on Epogen * suspect some Epogen resistance give high degree of inflammation * follow H/H (8) Diabetes mellitus: Onset Date: ~1995 Qualifiers: Diabetes mellitus type: type 2 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 Subjective Date/time seen: 07/27/22 12:[address] scan of head noted yesterday with subsequent Neurosurgery consultation noted; mentation remains about the same; WBC still quite elevated as well; continues to tolerated peritoneal dialysis treatments overnight. Exam Narrative: General: WD/WN female in NAD but confused Heart: normal S1 and S2; no rub Lungs: clear bilaterally Abdomen: soft, nondistended, positive bowel sounds Extremities: no edema
--- NOTE | 2022-07-27 12:39 | PM.PNNEP ---
Progress Note: A&P Assessment and Plan (1) End stage renal disease: Code(s): N18.6 - End stage renal disease Status: Chronic Assessment and Plan: continue nightly CCPD follow electrolytes, volume status, and clearance PD fluid cell count okay on 07/21 HOWEVER, repealt PD fluid cell count (on 07/24) abnormal peritonitis from bowel translocation(?) -- however, cultures remain negative (2) Septic shock: Code(s): A41.9 - Sepsis, unspecified organism; R65.21 - Severe sepsis with septic shock Status: Acute Assessment and Plan: after original presentation with septic syndrome, she improved however seems worse now if the last few days BP better at this time however, WBC and CRP remain quite elevated CT of abd/pelvis (on 07/24) noted -- stercoral proctitis playing a role? possible peritonitis from bowel translocation? GI recommendations noted urine culture with VRE blood cultures and fluid cultures negative to date follow repeat PD fluid cultures (3) Altered mental status: Code(s): R41.82 - Altered mental status, unspecified Status: Acute Assessment and Plan: related to infection(?) recent head CT with left parietal subarachnoid and potentially intraparenchymal hemorrhage of the brain Neurosurgery recommendations noted -- not opposed to CT Angiogram from renal perspective for better assessment... follow trend of mentation (4) Hyponatremia: Code(s): E87.1 - Hypo-osmolality and hyponatremia Status: Acute Assessment and Plan: due to dilution (fluid boluses and incomplete peritoneal dialysis (on 07/23 - 07/24) sodium better s/p 3% saline and more aggressive dialysis follow trend (5) Pneumonia: Code(s): J18.9 - Pneumonia, unspecified organism Status: Acute Assessment and Plan: chest x-ray shows persistent infiltrates in the right lung on antibiotics on room air (6) Right flank pain: Code(s): R10.9 - Unspecified abdominal pain Status: Acute Assessment and Plan: extensive work-up evaluation to date has been unrevealing SUPERVISOR 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 related to recent CT scan (on 07/24) findings (?) follow clinical symptoms (7) Anemia: Code(s): D64.9 - Anemia, unspecified Status: Chronic Assessment and Plan: due to ESRD and acute illness on Epogen suspect some Epogen resistance give high degree of inflammation follow H/H (8) Diabetes mellitus: Onset Date: ~1995 Qualifiers: Diabetes mellitus type: type 2 Diabetes mellitus mcfp insulin use: without mcfp use Diabetes mellitus complication status: without complication Qualified Code(s): E11.9 - Type 2 diabetes mellitus without complications Code(s): E11.9 - Type 2 diabetes mellitus without complications Status: Chronic Assessment and Plan: on accuchecks glycemic control per hospitalists Will continue to follow. Subjective Date/time seen: 07/27/22 12:[address] scan of head noted yesterday with subsequent Neurosurgery consultation noted; mentation remains about the same; WBC still quite elevated as well; continues to tolerated peritoneal dialysis treatments overnight. Exam Narrative: General: WD/WN female in NAD but confused Heart: normal S1 and S2; no rub Lungs: clear bilaterally Abdomen: soft, nondistended, positive bowel sounds Extremities: no edema or cyanosis Skin: warm and intact Objective Data Vital Signs Vital Signs: Vital Signs Temp Pulse Resp BP Pulse Ox O2 Del Method 07/27/22 12:00 98.7 F 93 13 102/66 100 07/27/22 10:00 90 07/27/22 08:00 100 07/27/22 08:00 Room Air 07/27/22 07:47 98.2 F 101 H 15 108/65 100 07/27/22 06:00 102 H 07/27/22 04:00 97.7 F 103 H 17 134/65 100 07/27/22 04:00 103 H 17 100 Room Air 07/27/22 04:00 110 H 07/27/22 02:00 110 H 07/27
--- NOTE | 2022-07-27 13:01 | PCNFU ---
Nutrition Follow-Up Complete: Inadequate Oral Intake as related to ab pain as evidenced by reported decrease intake. Goal: Adequate Intake of at least 75% of meals/supplements Patient has not met her goal. Pt current nutrition is Jevity 1.2 at 30 ml/hr. Last recorded weight is 82.7 kg. Bowel Motility:+Bm reported 07/24 Labs Reviewed:Glu 250, Cr 6.6,GFR 6,BUN 57, Na 127, Alb 2.6 Meds Noted:Protonix, Synthroid, Miralax, Flagyl Skin: WNL Additional Notes: Patient oral intake has been poor for the past 3 days reported. NGT feedings starting of Jevity 1.2 at 30 ml/hr, providing 792 kcals/37 gms protein/533 ml water. Recommend a formula change to Nepro at 30 ml/hr due to Renal Disease and Type 2 DM. Goal rate at 40 ml/hr. Flush 30 ml q [address] will reassess every Monday and Monday.
--- NOTE | 2022-07-27 15:28 | PM.IMPN ---
Progress Note: A&P Assessment and Plan (1) Septic shock: Code(s): A41.9 - Sepsis, unspecified organism; R65.21 - Severe sepsis with septic shock Status: Acute Assessment and Plan: CXR shows persistent infiltrates in right mid and lower lung which may be pneumonia BCx 07/20 negative; Peritoneal Cx 07/21 NGTD; Left hip Cx 07/21 NGTD UCx 07/22 growing 100K cololnies VRE sensitive only to Macrobid Peritoneal Fluid 07/24: WBC 2675 with 61% neutrophils. Peritoneal Cx 07/24 NGTD; No fungal elements. She was started on Aztreonam and Vanco. Levophed infusion started on admission and was able to be weaned off 07/21; also treated with IV fluids and Albumin. Solu-Cortef started but has since been stopped. Midodrine added 07/21. Concern for peritonitis given exam findings on 07/24. BP soft and WBC climbing. Abx adjusted to Primaxin, Flagyl and vanco. CT A/P scan 07/24 showing large amount of retained fecal material in the rectum which is distended. Mild perirectal fluid/inflammation extending into the presacral space. Consider stercoral proctitis. WBC worse again today at 56K and she is confused. treated for VRE in the urine and pneumonia (2) Peritonitis: Code(s): K65.9 - Peritonitis, unspecified Status: Acute Assessment and Plan: Peritoneal fluid 07/21 showing no WBC/1 RBC. Cx NGTD. Peritonitis was ruled out but now having increasing pain so testing repeated. Peritoneal fluid 07/24 showing 500RBC/2675WBC with 61% neutrophils c/w peritonitis. CT Abd/pelvis as above. Now having rectal bleeding felt related to probable stecoral ulcer. Repeat cultures NGTD Continue current IV abx. (3) Constipation: Code(s): K59.00 - Constipation, unspecified Status: Acute Assessment and Plan: CT scan as mentioned above. Now having rectal bleeding felt related to stecoral ulcer. Soap suds enema given and Miralax started. Consider microperforation given the perirectal inflammation but unclear since she does have PD. GI following. Continue Miralax BID. (4) Hyponatremia: Code(s): E87.1 - Hypo-osmolality and hyponatremia Status: Acute Assessment and Plan: Sodium stable at 126 Nephrology rounding (5) Trochanteric bursitis, left hip: Code(s): M70.62 - Trochanteric bursitis, left hip Status: Acute Assessment and Plan: CT scan of the hip showed severe left trochanteric bursitis with fluid collection measuring 8.4 x 2.4 x 12.0 cm. Close to 200 mL of fluid was removed on 07/21. Culture sent and are no growth. Discussed with orthopedics. Fluid collection may be relate to to her peritoneal dialysis. Continue abx as above (6) Pneumonia: Code(s): J18.9 - Pneumonia, unspecified organism Status: Acute Assessment and Plan: CXR showing persistent right mid and lower lung field infiltrates. (7) Hip pain: Code(s): M25.559 - Pain in unspecified hip Status: Acute Assessment and Plan: Hip CT showing moderate left hip OA and severe left trochanteric bursitis with large fluid collection at 8.4x12cm. (8) Diabetes mellitus: Onset Date: ~1995 Qualifiers: Diabetes mellitus complication status: without complication Diabetes mellitus half-way insulin use: without half-way use Diabetes mellitus type: type 2 Qualified Code(s): E11.9 - Type 2 diabetes mellitus without complications Code(s): E11.9 - Type 2 diabetes mellitus without complications Status: Chronic Assessment and Plan: A1c 7.1 in June. (9) End-stage renal disease on peritoneal dialysis: Onset Date: 06/2016 Code(s): N18.6 - End stage renal disease; Z99.2 - Dependence on renal dialysis Status: Chronic Assessment and Plan: Nephrology following for PD. Continue PD per their recommendations (10) Fall: Code(s): W19.XXXA - Unspecified fall, initial encounter Status: Acute Assessment
[2022-07-27 16:09] LABS: Glucose Point of Care 195 mg/dl (65-105)
[2022-07-27 20:01] LABS: Glucose Point of Care 182 mg/dl (65-105)
[2022-07-28] VITALS (48 sets, daily range): BP systolic 85–113; BP diastolic 51–81; PULSE 79–113; RESP 12–33; TEMP 36.3–36.9; O2SAT 99–100
[2022-07-28 04:56] LABS: Hematocrit 26.7 % (37.0-47.0); Hemoglobin 8.4 g/dL (12.0-15.0); Mean Corpuscular HGB Conc 31.5 g/dl (32-36); Mean Corpuscular Hemoglobin 31.2 pg (26-34); Mean Corpuscular Volume 99.3 fl (80-100); Mean Platelet Volume 9.4 fl (7.4-10.4); Platelet Count Result 274 k/mm3 (150-375); Red Blood Count 2.69 M/mm3 (4.2-5.4); Red Cell Distribution Width 17.5 % (11.5-14.5); White Blood Count 41.4 K/mm3 (4.5-10.0)
[2022-07-28 05:12] LABS: Alanine Aminotransferase 13 U/L (6-35); Albumin Level 2.5 g/dL (3.5-5.1); Alkaline Phosphatase 134 U/L (38-126); Anion Gap 12 mmol/L (8-16); Aspartate Amino Transferase 18 U/L (14-36); Bilirubin,Total 0.5 mg/dL (0.2-1.3); Blood Urea Nitrogen 56 mg/dL (7-17); Calcium 8.3 mg/dL (8.4-10.2); Carbon Dioxide 20 mmol/L (22-30); Chloride 95 mmol/L (98-107); Estimated CRCL calculation 8 ml/min; Estimated Glomerular Filt Rate 7; Glucose 339 mg/dL (65-110); Magnesium 2.2 mg/dL (1.6-2.3); Phosphorus 3.9 mg/dL (2.5-4.5); Potassium 3.1 mmol/L (3.4-5.0); Sodium 127 mmol/L (137-145)
[2022-07-28 05:22] LABS: Band Neutrophils Percent 10 % (0-6); Lymphocytes Absolute Manual 1.24 K/mm3 (1.1-4.5); Monocytes Absolute Manual 0.41 K/mm3 (0.1-0.90); Monocytes Percent Manual 1 % (3-9); Neutrophils Absolute Manual 39.74 K/mm3 (1.7-7.2); Neutrophils Percent Manual 86 % (46-73); Platelet Estimate Adequate (Adequate); Total Cells Counted 100
[2022-07-28 05:23] LABS: Anisocytosis 1+ (NORMAL); Burr Cells 1+ (NORMAL); Macrocytosis 1+ (NORMAL); Schistocytes None Seen (NORMAL)
[2022-07-28] MEDS: metroNIDAZOLE 500 MG/ISO 100ML 500 MG/100 ML BAG 100 MG IVPB ×3 (05:57→21:15)
[2022-07-28] MEDS: CENTRAL LINE FLUSH 10 ML IV PUSH ×3 (06:01→21:16)
[2022-07-28] MEDS: LEVOTHYROXINE SODIUM 12.5 MCG TABLET PO (06:01)
[2022-07-28 07:18] LABS: Glucose Point of Care 283 mg/dl (65-105)
[2022-07-28] MEDS: INSULIN GLARGINE (*BKC) 100 UNITS/ML 15 UNITS SUB-Q (09:11)
[2022-07-28] MEDS: INSULIN ASPART (*BKC) 100 UNITS/ML SUB-Q (09:11)
[2022-07-28] MEDS: PANTOPRAZOLE SODIUM IV 40 MG VIAL IV PUSH (09:21)
[2022-07-28] MEDS: LIDOCAINE 5% PATCH 2 PATCH TOPICAL (09:21)
[2022-07-28] MEDS: polyethylene glycoL 3350 17 GM POWD.PACK PO (09:22)
[2022-07-28] MEDS: MIDODRINE HCL 10 MG TABLET PO ×3 (09:22→17:47)
[2022-07-28] MEDS: LINEZOLID 600 MG/300 ML 600 MG/300 ML SOLN 300 MG IVPB ×2 (09:23→21:15)
[2022-07-28] MEDS: GABAPENTIN 100 MG CAPSULE PO ×3 (09:27→17:47)
[2022-07-28] MEDS: allopurinoL 150 MG TABLET PO (09:27)
[2022-07-28] MEDS: FLUTICASONE PROPIONATE 0.05% NA SPR 16 GM BTL (*BKC) 1 SPRAY NASAL ×2 (09:34→17:45)
[2022-07-28] MEDS: EPOETIN ALFA-EPBX 10,000 UNITS/ML VIAL 10000 UNITS SUB-Q (09:44)
--- NOTE | 2022-07-28 10:34 | WPDGIPROGNO ---
Progress Note: A&P Assessment and Plan (1) Rectal bleeding: Code(s): K62.5 - Hemorrhage of anus and rectum Status: Acute Assessment and Plan: Rectal bleeding appears to have stopped. Appears to have been on the basis stercoral proctitis. Constipation now relieved. No additional bleeding noted. Will follow conservatively for. Monitor hemoglobin which has been stable. (2) Constipation: Code(s): K59.00 - Constipation, unspecified Status: Acute Assessment and Plan: Constipation appears to have developed during hospital stay. Now relieved. Patient reported to have regular bowel movements present. No continued bleeding noted. (3) Altered mental status: Code(s): R41.82 - Altered mental status, unspecified Status: Acute Assessment and Plan: Patient poorly responsive. Neuro surgery following. Subarachnoid hemorrhage noted. Continue neuro follow-up advised. (4) Subarachnoid hemorrhage: Code(s): I60.9 - Nontraumatic subarachnoid hemorrhage, unspecified Status: Acute (5) Peritonitis: Code(s): K65.9 - Peritonitis, unspecified Status: Acute Assessment and Plan: Patient felt to have peritonitis. Elevated PMNs on recent paracentesis. WBC count has been decreasing. Forty-one thousand today. Continue antibiotics. (6) Polycystic kidney disease: Code(s): Q61.3 - Polycystic kidney, unspecified Status: Chronic (7) End-stage renal disease on peritoneal dialysis: Onset Date: 06/2016 Code(s): N18.6 - End stage renal disease; Z99.2 - Dependence on renal dialysis Status: Chronic Assessment and Plan: Patient with end-stage renal disease. Currently on peritoneal dialysis. Renal service following. Subjective Date/time seen: 07/28/22 10:34 Interval history: Patient remains poorly responsive today. NG tube in place. Tolerating tube feedings at slow rate. Bowel movements reported by nursing staff. No significant bleeding present. Review of Systems Review of Systems: ROS unobtainable: Yes unobtainable due to mental status Exam Narrative: Physical exam reveals patient be non arousable. HEENT exam reveals no icterus. Lungs reveal a few rhonchi. Heart without murmur. Abdomen is soft bowel sounds are present. No organomegaly or masses appreciated. Objective Data Vital Signs Vital Signs: Vital Signs - 24 hr 07/27/22 12:00 07/27/22 12:00 07/27/22 14:00 Temperature 98.7 F Pulse Rate 93 93 95 Respiratory Rate 13 Blood Pressure 102/66 Pulse Oximetry 100 Oxygen Delivery 07/27/22 12:00 07/27/22 16:00 07/27/22 16:00 Temperature 98.2 F Pulse Rate 96 97 Respiratory Rate 16 Blood Pressure 98/70 L Pulse Oximetry 100 Oxygen Delivery Room Air 07/27/22 16:00 07/27/22 18:00 07/27/22 20:40 Temperature 98.0 F Pulse Rate 97 99 Respiratory Rate 14 Blood Pressure 100/63 Pulse Oximetry 99 Oxygen Delivery Room Air Room Air 07/27/22 20:00 07/27/22 20:00 07/27/22 20:00 Temperature 98.0 F Pulse Rate 105 H 105 H 105 H Respiratory Rate 20 19 Blood Pressure 105/62 Pulse Oximetry 100 100 Oxygen Delivery Room Air 07/27/22 22:00 07/28/22 00:00 07/28/22 00:00 Temperature Pulse Rate 102 H 110 H 110 H Respiratory Rate 14 Blood Pressure Pulse Oximetry 99 Oxygen Delivery Room Air 07/28/22 00:00 07/28/22 02:00 07/28/22 04:00 Temperature 98.2 F Pulse Rate 108 H 108 H 89 Respiratory Rate 15 Blood Pressure 97/51 L Pulse Oximetry 100 Oxygen Delivery 07/28/22 04:00 07/28/22 04:00 07/28/22 06:00 Temperature 98.2 F Pulse Rate 89 89 104 H Respiratory Rate 14 14 Blood Pressure 113/60 Pulse Oximetry 100 100 Oxygen Delivery Room Air 07/28/22 07:37 07/28/22 07:50 07/28/22 08:00 Temperature 97.6 F 98.2 F Pulse Rate 105 H 104 H Respiratory Rate 19 14 Blood Pressure 112/77 113/60 Pulse Oximetry 100 Oxygen Deliver
--- NOTE | 2022-07-28 11:27 | PCDIET ---
Spoke with Hospitalist today regarding tube feedings formula. Formula changed to Nepro at 30 ml/hr. Tube feedings providing at 30ml/hr recommend goal rate at 40 ml/hr. Flush 30 ml q 4 hours. Will continue to monitor every Monday and Monday.
[2022-07-28 11:35] LABS: Glucose Point of Care 197 mg/dl (65-105)
--- NOTE | 2022-07-28 11:57 | WPDNEURCNPN ---
Assessment and Plan Assessment and plan (1) Metabolic encephalopathy: Code(s): G93.41 - Metabolic encephalopathy Status: Acute Plan encephalopathy with question regarding subarachnoid bleed for which neurosurgical opinion has been obtained obviously management is medically considering multiple etiology Koul factors Consult date: 07/28/22 HPI: Shantelle Salinas is a 66 year old female admitted to the hospital through the emergency room on July 13, 2022 with the ongoing history of polycystic renal disease for which patient had been on peritoneal dialysis hypertension, hypothyroidism, and with the information that over the last 72 hours she had been increasingly short of breath along with heaviness in the chest discomfort also complained of right-sided abdominal discomfort patient had been taking multiple medications as outlined with multiple allergies again as outlined and she carried the diagnosis of additionally chronic back pain, end-stage renal disease on peritoneal dialysis and being on the list for the transplant in addition to gout hypertension hypothyroidism diabetes mellitus and vitamin D deficient, patient is never smoker never alcohol intake initial exam in the ER documented her to have no focal neurological deficit except that she was chronically ill appearing her vital signs were normal except pulse rate of 103 her CTA of the chest and abdomen and pelvis was negative CBC was with mild leukocytosis troponin 0.070 lactic acid 1.1 negative for influenza a, influenza B, RSV, and Co varied since admission has been followed by multiple physicians including neurosurgical service for the documented left parietal subarachnoid hemorrhage and intraparenchymal hemorrhage without any specific cause, her most recent CTA of the head documented no arterial vascular malformation other than stable curvilinear hyperdensity in the left parietal region raising the possibility of hemorrhage versus dystrophic calcification Review of Systems Review of Systems: All systems reviewed & are unremarkable except as noted in HPI and below PMFSH Past Medical History Medical History Anemia of chronic disease Asthma Chronic back pain End-stage renal disease on peritoneal dialysis (06/2016) On transplant list Gastritis Gout Hypertension (1983) Hypothyroidism (acquired) Polycystic kidney disease Seasonal rhinitis Type 2 diabetes mellitus (1995) Vitamin D deficiency Surgical History Surgical History History of appendectomy (01/1980) History of cardiac catheterization History of cholecystectomy (04/1995) History of colonoscopy History of hernia repair History of partial hysterectomy (11/1993) History of tonsillectomy (06/1959) History of tubal ligation (06/1976) History of umbilical hernia repair (06/1979) Family History Family History Mother Family history of diabetes mellitus in first degree relative Polycystic kidney disease Heart disease Hypertension Father Family history of lung cancer Sibling Polycystic kidney disease Sibling Diabetes mellitus Heart disease Other Malignant neoplasm of prostate Social History Social History Social History: Surrogate medical decision maker: Brennon Salinas, spouse. Code status: Do not resuscitate. Smoking status: Never smoker Alcohol intake: never Substance use: never Substance use type: does not use Lack of Transportation: No Lack of Food: Never True Current Housing: I Have Housing Concerned About Future Housing: No Difficulty Paying Gas/Electric Bills: No Difficulty Paying for Meds: No Currently Unemployed: No Education: Grade School Difficulty w/ Childcare or Family Care: No Living arrangements: with family Additional living arrange
--- NOTE | 2022-07-28 12:38 | PM.PNNEP ---
Progress Note: A&P Assessment and Plan (1) End stage renal disease: Code(s): N18.6 - End stage renal disease Status: Chronic Assessment and Plan: continue nightly CCPD follow electrolytes, volume status, and clearance PD fluid cell count okay on 07/21 HOWEVER, repealt PD fluid cell count (on 07/24) abnormal peritonitis from bowel translocation(?) -- however, cultures remain negative will repeat PD fluid cell count tomorrow... (2) Septic shock: Code(s): A41.9 - Sepsis, unspecified organism; R65.21 - Severe sepsis with septic shock Status: Acute Assessment and Plan: after original presentation with septic syndrome, she improved however seems worse now BP better at this time however, WBC and CRP remain quite elevated CT of abd/pelvis (on 07/24) noted -- stercoral proctitis playing a role? possible peritonitis from bowel translocation? GI recommendations noted urine culture with VRE blood cultures and fluid cultures negative to date follow repeat PD fluid cultures (3) Altered mental status: Code(s): R41.82 - Altered mental status, unspecified Status: Acute Assessment and Plan: related to infection(?) recent head CT with left parietal subarachnoid and potentially intraparenchymal hemorrhage of the brain Neurosurgery recommendations noted CT angiogram of brain noted follow trend of mentation (4) Hyponatremia: Code(s): E87.1 - Hypo-osmolality and hyponatremia Status: Acute Assessment and Plan: due to dilution (fluid boluses and incomplete peritoneal dialysis (on 07/23 - 07/24) sodium better s/p 3% saline and more aggressive dialysis follow trend (5) Pneumonia: Code(s): J18.9 - Pneumonia, unspecified organism Status: Acute Assessment and Plan: chest x-ray shows persistent infiltrates in the right lung on antibiotics on room air (6) Right flank pain: Code(s): R10.9 - Unspecified abdominal pain Status: Acute Assessment and Plan: extensive work-up evaluation to date has been 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 related to recent CT scan (on 07/24) findings (?) follow clinical symptoms (7) Anemia: Code(s): D64.9 - Anemia, unspecified Status: Chronic Assessment and Plan: due to ESRD and acute illness on Epogen suspect some Epogen resistance give high degree of inflammation follow H/H (8) Diabetes mellitus: Onset Date: ~1995 Qualifiers: Diabetes mellitus type: type 2 Diabetes mellitus correction insulin use: without correction use Diabetes mellitus complication status: without complication Qualified Code(s): E11.9 - Type 2 diabetes mellitus without complications Code(s): E11.9 - Type 2 diabetes mellitus without complications Status: Chronic Assessment and Plan: on accuchecks glycemic control per hospitalists Will continue to follow. Subjective Date/time seen: 07/28/22 12:38 Peritoneal dialysis treatments continue to be going well but patient's mentation still remains quite poor; WBC is a bit better today but still quite elevated; results of CT angiogram of head/brain noted. Exam Narrative: General: WD/WN female in NAD but confused Heart: normal S1 and S2; no rub Lungs: clear bilaterally Abdomen: soft, nondistended, positive bowel sounds Extremities: no edema or cyanosis Skin: no rash Objective Data Vital Signs Vital Signs: Vital Signs Temp Pulse Resp BP Pulse Ox O2 Del Method 07/28/22 11:48 97.8 F 80 13 90/58 L 100 07/28/22 10:45 79 12 99 07/28/22 09:17 108 H 16 07/28/22 08:56 104 H 17 07/28/22 08:27 107 H 19 100 07/28/22 07:01 105 H 15 112/77 100 07/28/22 06:01 100 16 108/68 100 07/28/22 06:00 100 21 H 100 07/28/22 05:45 103 H 17 99 07/28/22 05:30 104 H 19 100 07/28/22 05:15 101 H 17 100 07/28/22 05:01
--- NOTE | 2022-07-28 12:38 | P.PNNP_ITS ---
Progress Note: A&P Assessment and Plan (1) End stage renal disease: Code(s): N18.6 - End stage renal disease Status: Chronic Assessment and Plan: * continue nightly CCPD * follow electrolytes, volume status, and clearance * PD fluid cell count okay on 07/21 * HOWEVER, repealt PD fluid cell count (on 07/24) abnormal * peritonitis from bowel translocation(?) -- however, cultures remain negative * will repeat PD fluid cell count tomorrow... (2) Septic shock: Code(s): A41.9 - Sepsis, unspecified organism; R65.21 - Severe sepsis with septic shock Status: Acute Assessment and Plan: * after original presentation with septic syndrome, she improved * however seems worse now * BP better at this time * however, WBC and CRP remain quite elevated * CT of abd/pelvis (on 07/24) noted -- stercoral proctitis playing a role? * possible peritonitis from bowel translocation? * GI recommendations noted * urine culture with VRE * blood cultures and fluid cultures negative to date * follow repeat PD fluid cultures (3) Altered mental status: Code(s): R41.82 - Altered mental status, unspecified Status: Acute Assessment and Plan: * related to infection(?) * recent head CT with left parietal subarachnoid and potentially i ntraparenchymal hemorrhage of the brain * Neurosurgery recommendations noted * CT angiogram of brain noted * follow trend of mentation (4) Hyponatremia: Code(s): E87.1 - Hypo-osmolality and hyponatremia Status: Acute Assessment and Plan: * due to dilution (fluid boluses and incomplete peritoneal dialysis (on 07/23 - 07/24) * sodium better s/p 3% saline and more aggressive dialysis * follow trend (5) Pneumonia: Code(s): J18.9 - Pneumonia, unspecified organism Status: Acute Assessment and Plan: * chest x-ray shows persistent infiltrates in the right lung * on antibiotics * on room air (6) Right flank pain: Code(s): R10.9 - Unspecified abdominal pain Status: Acute Assessment and Plan: * extensive work-up evaluation to date has been 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 * related to recent CT scan (on 07/24) findings (?) * follow clinical symptoms (7) Anemia: Code(s): D64.9 - Anemia, unspecified Status: Chronic Assessment and Plan: * due to ESRD and acute illness * on Epogen * suspect some Epogen resistance give high degree of inflammation * follow H/H (8) Diabetes mellitus: Onset Date: ~1995 Qualifiers: Diabetes mellitus type: type 2 Diabetes mellitus shelter insulin use: without shelter use Diabetes mellitus complication status: without complication Qualified Code(s): E11.9 - Type 2 diabetes mellitus without complications Code(s): E11.9 - Type 2 diabetes mellitus without complications Status: Chronic Assessment and Plan: * on accuchecks * glycemic control per hospitalists Will continue to follow. Subjective Date/time seen: 07/28/22 12:38 Peritoneal dialysis treatments continue to be going well but patient's mentation still remains quite poor; WBC is a bit better today but still quite elevated; results of CT angiogram of head/brain noted. Exam Narrative: General: WD/WN female in NAD but confused Heart: normal S1 and S2; no rub Lungs: clear bilaterally Abdomen: soft, nondistended, positive bowel sounds Extremities: no edema or cyanosis Skin: no rash
--- NOTE | 2022-07-28 12:53 | PM.IMPN ---
Progress Note: A&P Assessment and Plan (1) Septic shock: Code(s): A41.9 - Sepsis, unspecified organism; R65.21 - Severe sepsis with septic shock Status: Acute Assessment and Plan: CXR shows persistent infiltrates in right mid and lower lung which may be pneumonia BCx 07/20 negative; Peritoneal Cx 07/21 NGTD; Left hip Cx 07/21 NGTD UCx 07/22 growing 100K cololnies VRE sensitive only to Macrobid Peritoneal Fluid 07/24: WBC 2675 with 61% neutrophils. Peritoneal Cx 07/24 NGTD; No fungal elements. She was started on Aztreonam and Vanco. Levophed infusion started on admission and was able to be weaned off 07/21; also treated with IV fluids and Albumin. Solu-Cortef started but has since been stopped. Midodrine added 07/21. Concern for peritonitis given exam findings on 07/24. BP soft and WBC climbing. Abx adjusted to Primaxin, Flagyl and vanco. CT A/P scan 07/24 showing large amount of retained fecal material in the rectum which is distended. Mild perirectal fluid/inflammation extending into the presacral space. Consider stercoral proctitis. WBC worse again today at 41K and she is confused. treated for VRE in the urine, pneumonia and peritonitis (2) Peritonitis: Code(s): K65.9 - Peritonitis, unspecified Status: Acute Assessment and Plan: Peritoneal fluid 07/21 showing no WBC/1 RBC. Cx NGTD. Peritonitis was ruled out but now having increasing pain so testing repeated. Peritoneal fluid 07/24 showing 500RBC/2675WBC with 61% neutrophils c/w peritonitis. CT Abd/pelvis as above. Now having rectal bleeding felt related to probable stecoral ulcer. Repeat cultures NGTD Continue current IV abx. (3) Constipation: Code(s): K59.00 - Constipation, unspecified Status: Acute Assessment and Plan: CT scan as mentioned above. Now having rectal bleeding felt related to stecoral ulcer. Soap suds enema given and Miralax started. Consider microperforation given the perirectal inflammation but unclear since she does have PD. GI following. Continue Miralax BID. (4) Hyponatremia: Code(s): E87.1 - Hypo-osmolality and hyponatremia Status: Acute Assessment and Plan: Sodium stable at 127 Pt is a PD patient Nephrology rounding (5) Trochanteric bursitis, left hip: Code(s): M70.62 - Trochanteric bursitis, left hip Status: Acute Assessment and Plan: CT scan of the hip showed severe left trochanteric bursitis with fluid collection measuring 8.4 x 2.4 x 12.0 cm. Close to 200 mL of fluid was removed on 07/21. Culture sent and are no growth. Discussed with orthopedics. Fluid collection may be relate to to her peritoneal dialysis. Continue abx as above (6) Pneumonia: Code(s): J18.9 - Pneumonia, unspecified organism Status: Acute Assessment and Plan: CXR showing persistent right mid and lower lung field infiltrates. (7) Hip pain: Code(s): M25.559 - Pain in unspecified hip Status: Acute Assessment and Plan: Hip CT showing moderate left hip OA and severe left trochanteric bursitis with large fluid collection at 8.4x12cm. 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 (9) End-stage renal disease on peritoneal dialysis: Onset Date: 06/2016 Code(s): N18.6 - End stage renal disease; Z99.2 - Dependence on renal dialysis Status: Chronic Assessment and Plan: Nephrology following for PD. Continue PD per their recommendations (10) Fall: Code(s): W19.XXXA - Unspecified fall, initial encounter
[2022-07-28 16:26] LABS: Glucose Point of Care 91 mg/dl (65-105)
[2022-07-28 21:25] LABS: Glucose Point of Care 195 mg/dl (65-105)
[2022-07-29] VITALS (71 sets, daily range): BP systolic 82–120; BP diastolic 47–76; PULSE 73–106; RESP 11–27; TEMP 36.4–36.8; O2SAT 98–100
[2022-07-29 04:20] LABS: Hematocrit 28.4 % (37.0-47.0); Hemoglobin 8.8 g/dL (12.0-15.0); Mean Corpuscular Hemoglobin 30.8 pg (26-34); Mean Corpuscular Volume 99.3 fl (80-100); Mean Platelet Volume 9.3 fl (7.4-10.4); Platelet Count Result 242 k/mm3 (150-375); Red Blood Count 2.86 M/mm3 (4.2-5.4); Red Cell Distribution Width 17.8 % (11.5-14.5); White Blood Count 24.5 K/mm3 (4.5-10.0)
[2022-07-29 04:47] LABS: Alanine Aminotransferase 12 U/L (6-35); Albumin Level 2.7 g/dL (3.5-5.1); Alkaline Phosphatase 186 U/L (38-126); Anion Gap 9 mmol/L (8-16); Aspartate Amino Transferase 21 U/L (14-36); Bilirubin,Total 0.5 mg/dL (0.2-1.3); Blood Urea Nitrogen 60 mg/dL (7-17); Calcium 8.4 mg/dL (8.4-10.2); Carbon Dioxide 24 mmol/L (22-30); Chloride 92 mmol/L (98-107); Estimated CRCL calculation 8 ml/min; Estimated Glomerular Filt Rate 7; Glucose 230 mg/dL (65-110); Magnesium 2.3 mg/dL (1.6-2.3); Sodium 125 mmol/L (137-145)
[2022-07-29 05:43] LABS: Band Neutrophils Percent 2 % (0-6); Basophils Absolute Manual 0.24 K/mm3 (0.0-0.1); Basophils Percent Manual 1 % (0-1); Eosinophils Absolute Manual 0.24 K/mm3 (0.02-0.5); Eosinophils Percent Manual 1 % (0-4); Lymphocytes Absolute Manual 1.71 K/mm3 (1.1-4.5); Metamyelocytes Percent 1 %; Monocytes Absolute Manual 0.49 K/mm3 (0.1-0.90); Monocytes Percent Manual 2 % (3-9); Neutrophils Absolute Manual 21.56 K/mm3 (1.7-7.2); Neutrophils Percent Manual 86 % (46-73); Platelet Estimate Adequate (Adequate); Total Cells Counted 100
[2022-07-29 05:44] LABS: Anisocytosis 1+ (NORMAL); Hypochromasia 2+ (NORMAL); Macrocytosis 2+ (NORMAL); Microcytosis 1+ (NORMAL); Ovalocytes 1+ (NORMAL); Poikilocytosis 2+ (NORMAL); Schistocytes 1+ (NORMAL)
[2022-07-29 05:45] LABS: Acanthocytes 1+ (NORMAL); Burr Cells 1+ (NORMAL); Crenated RBC 1+ (NORMAL); Hypersegmented Neutrophils Present; Stomatocytes 1+ (NORMAL)
[2022-07-29] MEDS: metroNIDAZOLE 500 MG/ISO 100ML 500 MG/100 ML BAG 100 MG IVPB ×3 (06:19→22:58)
[2022-07-29] MEDS: CENTRAL LINE FLUSH 10 ML IV PUSH ×3 (06:20→22:30)
[2022-07-29] MEDS: LEVOTHYROXINE SODIUM 12.5 MCG TABLET PO (06:21)
[2022-07-29 07:20] LABS: Glucose Point of Care 202 mg/dl (65-105)
[2022-07-29] MEDS: INSULIN ASPART (*BKC) 100 UNITS/ML SUB-Q (08:30)
[2022-07-29] MEDS: LINEZOLID 600 MG/300 ML 600 MG/300 ML SOLN 300 MG IVPB ×2 (08:30→22:28)
[2022-07-29] MEDS: INSULIN GLARGINE (*BKC) 100 UNITS/ML 15 UNITS SUB-Q (08:30)
[2022-07-29] MEDS: MIDODRINE HCL 10 MG TABLET PO ×3 (08:31→18:14)
[2022-07-29] MEDS: PANTOPRAZOLE SODIUM IV 40 MG VIAL IV PUSH (08:31)
[2022-07-29] MEDS: GABAPENTIN 100 MG CAPSULE PO ×3 (08:31→18:14)
[2022-07-29] MEDS: LIDOCAINE 5% PATCH 2 PATCH TOPICAL (08:47)
[2022-07-29] MEDS: allopurinoL 150 MG TABLET PO (08:48)
[2022-07-29] MEDS: FLUTICASONE PROPIONATE 0.05% NA SPR 16 GM BTL (*BKC) 1 SPRAY NASAL ×2 (08:48→17:50)
--- NOTE | 2022-07-29 09:09 | PM.IMPN ---
Progress Note: A&P Assessment and Plan (1) Septic shock: Code(s): A41.9 - Sepsis, unspecified organism; R65.21 - Severe sepsis with septic shock Status: Acute Assessment and Plan: CXR shows persistent infiltrates in right mid and lower lung which may be pneumonia 07/20, repeat 07/29 pending BCx 07/20 negative Peritoneal Cx 07/21 NGTD Left hip Cx 07/21 NGTD UCx 07/22 growing 100K CFU VRE, started on linezolid 07/24 Peritoneal Fluid 07/24: WBC 2675 with 61% neutrophils, on primaxin + flagyl Peritoneal Cx 07/24 NGTD; No fungal elements. She was started on Aztreonam and Vanco. Levophed infusion started on admission and was able to be weaned off 07/21; also treated with IV fluids and Albumin. Solu-Cortef started but has since been stopped. Midodrine added 07/21. Concern for peritonitis given exam findings on 07/24. BP soft and WBC climbing. Abx adjusted to Primaxin, Flagyl and vanco. CT A/P scan 07/24 showing large amount of retained fecal material in the rectum which is distended. Mild perirectal fluid/inflammation extending into the presacral space. Consider stercoral proctitis. 07/24: Urine cx came back VRE, started on linezolid, vanc d/c. 07/28: WBC worse again today at 41K with worsening mentation, cont current management 07/29: WBC down to 24.5 from 41 yesterday with no change in management, monitor (2) Peritonitis: Code(s): K65.9 - Peritonitis, unspecified Status: Acute Assessment and Plan: Peritoneal fluid 07/21 showing no WBC/1 RBC. Cx NGTD. Peritonitis was ruled out but now having increasing pain so testing repeated. Peritoneal fluid 07/24 showing 500RBC/2675WBC with 61% neutrophils c/w peritonitis. CT Abd/pelvis as above. Now having rectal bleeding felt related to probable stecoral ulcer. Repeat cultures NGTD Continue current IV abx with primaxin + flagyl (3) Constipation: Code(s): K59.00 - Constipation, unspecified Status: Acute Assessment and Plan: CT scan as mentioned above. Now having rectal bleeding felt related to stercoral ulcer. Soap suds enema given and Miralax started. Consider microperforation given the perirectal inflammation but unclear since she does have PD. GI following. Continue Miralax BID. 07/29: rectal bleeding resolved, monitor (4) Hyponatremia: Code(s): E87.1 - Hypo-osmolality and hyponatremia Status: Acute Assessment and Plan: Sodium 125 today Pt is a PD patient Nephrology rounding (5) Trochanteric bursitis, left hip: Code(s): M70.62 - Trochanteric bursitis, left hip Status: Acute Assessment and Plan: CT scan of the hip showed severe left trochanteric bursitis with fluid collection measuring 8.4 x 2.4 x 12.0 cm. Close to 200 mL of fluid was removed on 07/21. Culture sent and there is no growth. Discussed with orthopedics. Fluid collection may be related to to her peritoneal dialysis. No further management for this at this time, ortho s/o. (6) Pneumonia: Code(s): J18.9 - Pneumonia, unspecified organism Status: Acute Assessment and Plan: 07/20 CXR showing persistent right mid and lower lung field infiltrates. Repeat pending today, 07/29 Stable on RA Update: Repeat chest x-ray unchanged from initial, suspect this is scarring and not any sign of pneumonia (7) Hip pain: Code(s): M25.559 - Pain in unspecified hip Status: Acute Assessment and Plan: Hip CT showing moderate left hip OA and severe left trochanteric bursitis with large fluid collection at 8.4x12cm. Drained 07/21, see above (8) Diabetes mellitus: Onset Date: ~1995 Qualifiers: Diabetes mellitus complication status: without complication Diabetes mellitus gre tutor insulin use: without long-term use Diabetes mellitus type: type 2 Qualified Code(s): E11.9 - Type 2 diabetes mellitus without complications Code(s): E11.9 - Type [address]
--- NOTE | 2022-07-29 10:51 | PM.PNNEP ---
Progress Note: A&P Assessment and Plan (1) End stage renal disease: Code(s): N18.6 - End stage renal disease Status: Chronic Assessment and Plan: continue nightly CCPD follow electrolytes, volume status, and clearance PD fluid cell count okay on 07/21 HOWEVER, repealt PD fluid cell count (on 07/24) abnormal peritonitis from bowel translocation(?) -- however, cultures remain negative (2) Septic shock: Code(s): A41.9 - Sepsis, unspecified organism; R65.21 - Severe sepsis with septic shock Status: Acute Assessment and Plan: after original presentation with septic syndrome, she improved however seems worse now BP better at this time however, WBC and CRP remain quite elevated CT of abd/pelvis (on 07/24) noted -- stercoral proctitis playing a role? possible peritonitis from bowel translocation? GI recommendations noted urine culture with VRE blood cultures and fluid cultures negative to date follow repeat PD fluid cultures follow intermittent PD fluid cell count (3) Altered mental status: Code(s): R41.82 - Altered mental status, unspecified Status: Acute Assessment and Plan: improvement noted today related to infection(?) recent head CT with left parietal subarachnoid and potentially intraparenchymal hemorrhage of the brain versus calcification Neurosurgery recommendations noted CT angiogram of brain results noted follow trend of mentation (4) Hyponatremia: Code(s): E87.1 - Hypo-osmolality and hyponatremia Status: Acute Assessment and Plan: due to dilution (fluid boluses and incomplete peritoneal dialysis (on 07/23 - 07/24) sodium better s/p 3% saline x 2 and more aggressive dialysis follow trend (5) Pneumonia: Code(s): J18.9 - Pneumonia, unspecified organism Status: Acute Assessment and Plan: chest x-ray shows persistent infiltrates in the right lung on antibiotics on room air (6) Right flank pain: Code(s): R10.9 - Unspecified abdominal pain Status: Acute Assessment and Plan: extensive work-up evaluation to date has been unrevealing WAITRESS related to recent CT scan (on 07/24) findings (?) follow clinical symptoms (7) Anemia: Code(s): D64.9 - Anemia, unspecified Status: Chronic Assessment and Plan: due to ESRD and acute illness on Epogen suspect some Epogen resistance give high degree of inflammation follow H/H (8) Diabetes mellitus: Onset Date: ~1995 Qualifiers: Diabetes mellitus type: type 2 Diabetes mellitus penitentiary insulin use: without filler leaf cutter long use Diabetes mellitus complication status: without complication Qualified Code(s): E11.9 - Type 2 diabetes mellitus without complications Code(s): E11.9 - Type 2 diabetes mellitus without complications Status: Chronic Assessment and Plan: on accuchecks glycemic control per hospitalists Will continue to follow. Subjective Date/time seen: 07/29/22 10:51 Tolerating peritoneal dialysis treatments but mental status still not back to baseline -- she is bit more responsive than previoulsy in that she responds to some questions; WBC is finally improving at this time; no apparent distress noted. Exam Narrative: General: WD/WN female in NAD but still confused but more responsive Heart: normal S1 and S2; no rub Lungs: clear bilaterally Abdomen: soft, nondistended, positive bowel sounds Extremities: no edema or cyanosis Skin: no nodules Objective Data Vital Signs Vital Signs: Vital Signs Temp Pulse Resp BP Pulse Ox O2 Del Method 07/29/22 10:48 92 27 H 100 07/29/22 10:30 93 19 100 07/29/22 10:15 90 13 100 07/29/22 10:03 94 18 100 07/29/22 09:54 94 16 100 07/29/22 09:39 96 21 H 07/29/22 09:09 92 18 100 07/29/22 08:45 94 15 100 07/29/22 08:30 95 16 100 02/2
--- NOTE | 2022-07-29 10:51 | P.PNNP_ITS ---
Progress Note: A&P Assessment and Plan (1) End stage renal disease: Code(s): N18.6 - End stage renal disease Status: Chronic Assessment and Plan: * continue nightly CCPD * follow electrolytes, volume status, and clearance * PD fluid cell count okay on 07/21 * HOWEVER, repealt PD fluid cell count (on 07/24) abnormal * peritonitis from bowel translocation(?) -- however, cultures remain negative (2) Septic shock: Code(s): A41.9 - Sepsis, unspecified organism; R65.21 - Severe sepsis with septic shock Status: Acute Assessment and Plan: * after original presentation with septic syndrome, she improved * however seems worse now * BP better at this time * however, WBC and CRP remain quite elevated * CT of abd/pelvis (on 07/24) noted -- stercoral proctitis playing a role? * possible peritonitis from bowel translocation? * GI recommendations noted * urine culture with VRE * blood cultures and fluid cultures negative to date * follow repeat PD fluid cultures * follow intermittent PD fluid cell count (3) Altered mental status: Code(s): R41.82 - Altered mental status, unspecified Status: Acute Assessment and Plan: * improvement noted today * related to infection(?) * recent head CT with left parietal subarachnoid and potentially intraparenchymal hemorrhage of the brain versus calcification * Neurosurgery recommendations noted * CT angiogram of brain results noted * follow trend of mentation (4) Hyponatremia: Code(s): E87.1 - Hypo-osmolality and hyponatremia Status: Acute Assessment and Plan: * due to dilution (fluid boluses and incomplete peritoneal dialysis (on 07/23 - 07/24) * sodium better s/p 3% saline x 2 and more aggressive dialysis * follow trend (5) Pneumonia: Code(s): J18.9 - Pneumonia, unspecified organism Status: Acute Assessment and Plan: * chest x-ray shows persistent infiltrates in the right lung * on antibiotics * on room air (6) Right flank pain: Code(s): R10.9 - Unspecified abdominal pain Status: Acute Assessment and Plan: * extensive work-up evaluation to date has been unrevealing LOGISTICS TECH * related to recent CT scan (on 07/24) findings (?) * follow clinical symptoms (7) Anemia: Code(s): D64.9 - Anemia, unspecified Status: Chronic Assessment and Plan: * due to ESRD and acute illness * on Epogen * suspect some Epogen resistance give high degree of inflammation * follow H/H (8) Diabetes mellitus: Onset Date: ~1995 Qualifiers: Diabetes mellitus type: type 2 Diabetes mellitus 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 Subjective Date/time seen: 07/29/22 10:51 Tolerating peritoneal dialysis treatments but mental status still not back to baseline -- she is bit more responsive than previoulsy in that she responds to some questions; WBC is finally improving at this time; no apparent distress noted. Exam Narrative: General: WD/WN female in NAD but still confused but more responsive Heart: normal S1 and S2; no rub Lungs: clear bilateral
--- NOTE | 2022-07-29 11:18 | PCNFU ---
Nutrition Follow-Up Complete: Inadequate Oral Intake as related to ab pain as evidenced by reported decrease intake. Goal:Meet estimated nutritional needs. Patient is progressing towards goal. We will continue current goal. Pt current nutrition is Nepro at 30 ml/hr Last recorded weight is 75 kg. Bowel Motility:FMS Labs Reviewed:Glu 230, Cr 6.10,BUN 60,GFR 7, Hct 28.4,Hgb 8.8 Meds Noted:Protonix, Synthroid, Flagyl, Miralax. Skin:WNL Additional Notes:Patient remains on NGT feedings of Nepro at 30 ml/hr providing 1188 kcals/53 gms protein. Meeting 81% kcal needs and 75% protein needs. Recommend to increase tube feeding rate to 35 ml/hr to better meet caloric needs. Flush 30 ml q 4 hours. Monitoring: will monitor every Monday and Monday.
[2022-07-29 11:45] LABS: Glucose Point of Care 163 mg/dl (65-105)
--- NOTE | 2022-07-29 12:03 | WPDGIPROGNO ---
Progress Note: A&P Assessment and Plan (1) Altered mental status: Code(s): R41.82 - Altered mental status, unspecified Status: Acute Assessment and Plan: Patient's mental status is improving to some degree. White blood cell count has improved to 24,000 four thousand. Neuro surgery Service following. (2) Subarachnoid hemorrhage: Code(s): I60.9 - Nontraumatic subarachnoid hemorrhage, unspecified Status: Acute Assessment and Plan: Subarachnoid hemorrhage suggested by recent CT scan of the head. Neuro surgery following. (3) Constipation: Code(s): K59.00 - Constipation, unspecified Status: Acute Assessment and Plan: Constipation improved. Patient with more regular bowel habits are present. CT scan suggested stercoral proctitis. Recent rectal bleeding likely on this basis. No additional recent bleeding noted. Hemoglobin stable. (4) Rectal bleeding: Code(s): K62.5 - Hemorrhage of anus and rectum Status: Acute Assessment and Plan: Bleeding is resolved. Likely from stercoral colitis versus hemorrhoids related to constipation. Now with constipation resolved bleeding has stopped. Hemoglobin stable. I would defer invasive testing at present. I will be out of town. Dr. Mon covering should any questions arise. (5) Abdominal pain: Code(s): R10.9 - Unspecified abdominal pain Status: Acute Assessment and Plan: Abdominal pain improving. Likely on the basis of peritonitis although could have been from urinary tract infection, or constipation. (6) Peritonitis: Code(s): K65.9 - Peritonitis, unspecified Status: Acute Assessment and Plan: Patient on broad-spectrum antibiotics for peritonitis. Patient receiving peritoneal dialysis. May need long-term antibiotics (7) End-stage renal disease on peritoneal dialysis: Onset Date: 06/2016 Code(s): N18.6 - End stage renal disease; Z99.2 - Dependence on renal dialysis Status: Chronic (8) Polycystic kidney disease: Code(s): Q61.3 - Polycystic kidney, unspecified Status: Chronic Subjective Date/time seen: 07/29/22 12:03 Interval history: Patient arousable this morning. Somewhat more alert. Nursing staff reports no blood in the stools. Continues to have bowel movements Review of Systems Review of Systems: review of systems noncontributory Exam Narrative: physical exam reveals patient be arousable. HEENT exam is anicteric. Lungs are clear. Heart without murmur. Abdomen obese bowel sounds present soft nontender. Objective Data Vital Signs Vital Signs: Vital Signs - 24 hr 07/28/22 16:00 07/28/22 16:58 07/28/22 16:00 Temperature 97.3 F L Pulse Rate 101 H 99 Respiratory Rate 18 17 Blood Pressure 85/55 L 85/55 L Pulse Oximetry 100 Oxygen Delivery Room Air Room Air 07/28/22 14:00 07/28/22 16:00 07/28/22 18:00 Temperature Pulse Rate 93 100 113 H Respiratory Rate Blood Pressure Pulse Oximetry Oxygen Delivery 07/28/22 20:00 07/28/22 20:00 07/28/22 20:00 Temperature 98.5 F Pulse Rate 113 H 103 H 99 Respiratory Rate 18 17 Blood Pressure 107/75 Pulse Oximetry 100 99 Oxygen Delivery Room Air 07/28/22 22:00 07/29/22 00:00 07/29/22 00:00 Temperature Pulse Rate 102 H 76 92 Respiratory Rate 17 Blood Pressure Pulse Oximetry 99 Oxygen Delivery Room Air 07/29/22 00:00 07/29/22 02:00 07/29/22 04:00 Temperature 98.0 F Pulse Rate 76 91 90 Respiratory Rate 13 Blood Pressure 82/55 L Pulse Oximetry 99 Oxygen Delivery 07/29/22 04:00 07/29/22 04:00 07/29/22 06:00 Temperature 98.2 F Pulse Rate 90 96 96 Respiratory Rate 15 15 Blood Pressure 103/65 Pulse Oximetry 100 100 Oxygen Delivery Room Air 07/29/22 07:15 07/29/22 07:59 07/29/22 08:00 Temperature 98.2 F 97.6 F Pulse Rate 96 96 Respiratory Rate 15 13 Blood Pressure 10
--- NOTE | 2022-07-29 12:16 | PC.NURSE ---
1545-Called NSGY office and left message, Dr Peters to look at CTA, Dr Sherwood is out today.
[2022-07-29 12:57] LABS: Source Peritoneal Fluid Peritoneal Fluid
[2022-07-29 12:58] LABS: Appearance Peritoneal Fluid Clear (Clear); Color Peritoneal Fluid Yellow (Colorless); Lymphocytes Peritoneal Fluid 37 %; Macrophages Peritoneal Fluid 1 %; Monocytes Peritoneal Fluid 31 %; Neutrophils Peritoneal Fluid 31 % (0-25)
[2022-07-29 12:59] LABS: Nucleated Cells Peritoneal Flu 42 /uL (0-500); RBC Peritoneal Fluid < 2000 /uL (0-100000)
--- NOTE | 2022-07-29 14:00 | P.OP_ITS ---
Procedure Note - Detailed Date of Procedure 07/29/22 Pre-op Diagnosis sepsis,abdominal pain,sbp Procedure Performed July 27, 2022 Surgeon Alberto Mcfarland MD Indications Doing well 2 weeks after arthroscopic rotator cuff repair. Questions answered. Restrictions reviewed. Continue the sling. Exercises reviewed. [Continue][Start][Defer formal] physical therapy.Alberto Mcfarland M.D. [facility] [address] [place] [address] DISCHARGE INSTRUCTIONS Total Shoulder Arthroplasty 1. May shower with waterproof bandage on. 2. Remove large waterproof bandage and steri-strips after 7 days. No further dressing needed. 3. Use shoulder sling/immobilizer for 6 weeks. (You will be given one of each. You may use either. The altamirano immobilizer allows you to move your hand. This is often more comfortable at night. Please refer to the folder you were given prior to your surgery, for instructions on how to apply and remove these devices.) 4. May remove shoulder sling/immobilizer intermittently for exercise, hygiene, while sitting. 5. May loosen wrist from sling at night. 6. No lifting above chest level. 7. Perform home exercises 3-5 times daily. May use heat before, but always ice after (10-15 minutes). 8. No reaching away from the body. 9. No driving for 6 weeks. 10. NOTE: WE HAVE A 48-HOUR NOTICE POLICY FOR PAIN MEDICATION REFILLS c If you need a refill on your pain medication before your post op appointment, please do not wait until you are out to call and request a refill. You will have to come to our office to picker and packer the paper prescription to take to your pharmacy, after the refill request has been approved by Dr. Mcfarland. 11. Call office if wound is red and painful or draining fluid. Other questions, please call: [phone]. Office Hours ar 8:00am - 4:00pm Monday - Monday Urine Output 0
[2022-07-29 15:51] LABS: Glucose Point of Care 112 mg/dl (65-105)
--- NOTE | 2022-07-29 20:48 | PC.NURSE ---
Addendum entered by Essie Matthew RN 07/29/22 20:50: pt was transferred to room at 2026. Original Note: This patient, Shantelle Salinas, was transferred to 232 on 07/29/22 at 8. Personal belongings sent with patient. Report given to Soumya Gaitan RN . Appropriate documentation sent with patient.
[2022-07-29 21:50] LABS: Glucose Point of Care 158 mg/dl (65-105)
[2022-07-30] VITALS (14 sets, daily range): BP systolic 97–112; BP diastolic 48–61; PULSE 83–113; RESP 12–20; TEMP 36.3–36.5; O2SAT 98–100
[2022-07-30 04:48] LABS: Basophils Absolute Auto 0.1 K/mm3 (0.0-0.1); Basophils Percent Auto 0.4 % (0.2-1.2); Eosinophils Absolute Auto 0.3 K/mm3 (0-0.3); Eosinophils Percent Auto 1.8 % (0-4.4); Hematocrit 30.8 % (37.0-47.0); Hemoglobin 9.4 g/dL (12.0-15.0); Immature Granulocyte Absolute 0.26 K/mm3 (0.00-0.031); Immature Granulocyte Percent A 1.9 % (0-0.5); Lymphocytes Absolute Auto 1.25 K/mm3 (0.9-3.2); Mean Corpuscular HGB Conc 30.5 g/dl (32-36); Mean Corpuscular Hemoglobin 30.9 pg (26-34); Mean Corpuscular Volume 101.3 fl (80-100); Mean Platelet Volume 9.5 fl (7.4-10.4); Monocytes Absolute Auto 0.9 K/mm3 (0.1-0.6); Monocytes Percent Auto 6.4 % (2.6-8.5); Neutrophils Absolute Auto 11.2 K/mm3 (1.3-6.7); Neutrophils Percent Auto 80.5 % (45.5-73.1); Nucleated Red Blood Cells Absolute Auto 0.1 K/mm3 (0.0-0.012); Nucleated Red Blood Cells Perc 0.4 % (0.0-0.2); Platelet Count Result 184 k/mm3 (150-375); Red Blood Count 3.04 M/mm3 (4.2-5.4); Red Cell Distribution Width 18.6 % (11.5-14.5); White Blood Count 13.9 K/mm3 (4.5-10.0)
[2022-07-30 04:59] LABS: Alanine Aminotransferase 11 U/L (6-35); Albumin Level 2.5 g/dL (3.5-5.1); Alkaline Phosphatase 170 U/L (38-126); Anion Gap 9 mmol/L (8-16); Aspartate Amino Transferase 18 U/L (14-36); Bilirubin,Total 0.6 mg/dL (0.2-1.3); Blood Urea Nitrogen 60 mg/dL (7-17); Calcium 8.3 mg/dL (8.4-10.2); Carbon Dioxide 24 mmol/L (22-30); Chloride 94 mmol/L (98-107); Estimated CRCL calculation 8 ml/min; Estimated Glomerular Filt Rate 7; Glucose 249 mg/dL (65-110); Magnesium 2.3 mg/dL (1.6-2.3); Sodium 127 mmol/L (137-145)
[2022-07-30] MEDS: metroNIDAZOLE 500 MG/ISO 100ML 500 MG/100 ML BAG 100 MG IVPB ×3 (05:46→21:19)
[2022-07-30] MEDS: CENTRAL LINE FLUSH 10 ML IV PUSH ×3 (05:51→21:20)
[2022-07-30] MEDS: LEVOTHYROXINE SODIUM 12.5 MCG TABLET PO (05:53)
[2022-07-30 07:50] LABS: Glucose Point of Care 244 mg/dl (65-105)
--- NOTE | 2022-07-30 08:51 | PM.IMPN ---
Progress Note: A&P Assessment and Plan (1) Septic shock: Code(s): A41.9 - Sepsis, unspecified organism; R65.21 - Severe sepsis with septic shock Status: Acute Assessment and Plan: CXR shows persistent infiltrates in right mid and lower lung which may be pneumonia 07/20, repeat 07/29 pending BCx 07/20 negative Peritoneal Cx 07/21 NGTD Left hip Cx 07/21 NGTD UCx 07/22 growing 100K CFU VRE, started on linezolid 07/24 Peritoneal Fluid 07/24: WBC 2675 with 61% neutrophils, on primaxin + flagyl Peritoneal Cx 07/24 NGTD; No fungal elements. She was started on Aztreonam and Vanco. Levophed infusion started on admission and was able to be weaned off 07/21; also treated with IV fluids and Albumin. Solu-Cortef started but has since been stopped. Midodrine added 07/21. Concern for peritonitis given exam findings on 07/24. BP soft and WBC climbing. Abx adjusted to Primaxin, Flagyl and vanco. CT A/P scan 07/24 showing large amount of retained fecal material in the rectum which is distended. Mild perirectal fluid/inflammation extending into the presacral space. Likely stercoral proctitis, GI on board. 07/24: Urine cx came back VRE, started on linezolid, vanc d/c. Leuk improving on linezolid, primaxin and flagyl (2) Peritonitis: Code(s): K65.9 - Peritonitis, unspecified Status: Acute Assessment and Plan: Peritoneal fluid 07/21 showing no WBC/1 RBC. Cx NGTD. Peritonitis was ruled out but now having increasing pain so testing repeated. Peritoneal fluid 07/24 showing 500RBC/2675WBC with 61% neutrophils c/w peritonitis. CT Abd/pelvis as above. Rectal bleeding felt related to probable stercoral ulcer, now resolved. Repeat cultures NGTD Continue current IV abx with primaxin + flagyl (3) Constipation: Code(s): K59.00 - Constipation, unspecified Status: Acute Assessment and Plan: CT scan as mentioned above. Now having rectal bleeding felt related to stercoral ulcer. Soap suds enema given and Miralax started. Consider microperforation given the perirectal inflammation but unclear since she does have PD. GI following. Continue Miralax BID. 07/29: rectal bleeding resolved 07/30: Stool appears to be hardening more again, will increase bowel regimen to prevent further damage (4) Hyponatremia: Code(s): E87.1 - Hypo-osmolality and hyponatremia Status: Acute Assessment and Plan: Sodium improved to 127 today Pt is a PD patient Nephrology rounding (5) Trochanteric bursitis, left hip: Code(s): M70.62 - Trochanteric bursitis, left hip Status: Acute Assessment and Plan: CT scan of the hip showed severe left trochanteric bursitis with fluid collection measuring 8.4 x 2.4 x 12.0 cm. Close to 200 mL of fluid was removed on 07/21. Culture sent and there is no growth. Discussed with orthopedics. Fluid collection may be related to to her peritoneal dialysis. No further management for this at this time, ortho s/o. (6) Pneumonia: Code(s): J18.9 - Pneumonia, unspecified organism Status: Acute Assessment and Plan: 07/20 CXR showing persistent right mid and lower lung field infiltrates. Repeat pending today, 07/29 Stable on RA Update: Repeat chest x-ray unchanged from initial, suspect this is scarring and not any sign of pneumonia (7) Hip pain: Code(s): M25.559 - Pain in unspecified hip Status: Acute Assessment and Plan: Hip CT showing moderate left hip OA and severe left trochanteric bursitis with large fluid collection at 8.4x12cm. Drained 07/21, see above (8) Diabetes mellitus: Onset Date: ~1995 Qualifiers: Diabetes mellitus complication status: without complication Diabetes mellitus halfway insulin use: without exterminator termite use Diabetes mellitus type: type 2 Qualified Code(s): E11.9 - Type 2 diabetes mellitus without complications Code(s): E11.9 - Type 2 diabetes mellitus without c
[2022-07-30] MEDS: PANTOPRAZOLE SODIUM IV 40 MG VIAL IV PUSH (10:19)
[2022-07-30] MEDS: polyethylene glycoL 3350 17 GM POWD.PACK PO ×2 (10:19→18:00)
[2022-07-30] MEDS: MIDODRINE HCL 10 MG TABLET PO ×3 (10:19→18:00)
[2022-07-30] MEDS: LINEZOLID 600 MG/300 ML 600 MG/300 ML SOLN 300 MG IVPB ×2 (10:20→21:19)
[2022-07-30] MEDS: INSULIN GLARGINE (*BKC) 100 UNITS/ML 15 UNITS SUB-Q (10:20)
[2022-07-30] MEDS: FLUTICASONE PROPIONATE 0.05% NA SPR 16 GM BTL (*BKC) 1 SPRAY NASAL (10:21)
[2022-07-30] MEDS: GABAPENTIN 100 MG CAPSULE PO ×3 (10:21→18:00)
[2022-07-30] MEDS: allopurinoL 150 MG TABLET PO (10:22)
[2022-07-30] MEDS: INSULIN ASPART (*BKC) 100 UNITS/ML SUB-Q ×2 (10:23→12:18)
[2022-07-30 10:33] LABS: Glucose Point of Care 255 mg/dl (65-105)
--- NOTE | 2022-07-30 11:32 | P.PNNP_ITS ---
Progress Note: A&P Assessment and Plan (1) End stage renal disease: Code(s): N18.6 - End stage renal disease Status: Chronic Assessment and Plan: * continue nightly CCPD * follow electrolytes, volume status, and clearance (2) Septic shock: Code(s): A41.9 - Sepsis, unspecified organism; R65.21 - Severe sepsis with septic shock Status: Acute Assessment and Plan: * after original presentation with septic syndrome, she improved * however seems worse now * BP better at this time * however, WBC and CRP remain quite elevated * CT of abd/pelvis (on 07/24) noted -- stercoral proctitis playing a role? * possible peritonitis from bowel translocation? * GI recommendations noted * urine culture with VRE * blood cultures and PD fluid cultures negative to date\ * repeat PD fluid cell count (07/29/22) has improved (3) Altered mental status: Code(s): R41.82 - Altered mental status, unspecified Status: Acute Assessment and Plan: * improvement noted * related to infection(?) * recent head CT with left parietal subarachnoid and potentially intraparenchymal hemorrhage of the brain versus calcification * Neurosurgery recommendations noted * CT angiogram of brain results noted * follow trend of mentation (4) Hyponatremia: Code(s): E87.1 - Hypo-osmolality and hyponatremia Status: Acute Assessment and Plan: * due to dilution (fluid boluses and incomplete peritoneal dialysis (on 07/23 - 07/24) * sodium better s/p 3% saline x 2 and more aggressive dialysis * follow trend (5) Pneumonia: Code(s): J18.9 - Pneumonia, unspecified organism Status: Acute Assessment and Plan: * chest x-ray shows persistent infiltrates in the right lung * on antibiotics * on room air (6) Right flank pain: Code(s): R10.9 - Unspecified abdominal pain Status: Acute Assessment and Plan: * extensive work-up evaluation to date has been unrevealing LICENSED AND CERTIFIED MIDWIFE * related to recent CT scan (on 07/24) findings (?) * follow clinical symptoms (7) Anemia: Code(s): D64.9 - Anemia, unspecified Status: Chronic Assessment and Plan: * due to ESRD and acute illness * on Epogen * suspect some Epogen resistance give high degree of inflammation * follow H/H (8) Diabetes mellitus: Onset Date: ~1995 Qualifiers: Diabetes mellitus type: type 2 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 Subjective Date/time seen: 07/30/22 11:32 Mentation continues to improve in the last few days (but still not fully back to baseline) -- she recognized me and is asking when the NG tube can be removed and when she can go home; her is at beside and agree the her neurological status is significantly better; WBC continues to improve as well with interventions to date; tolerated peritoneal dialysis treatment overnight without any issues. Exam Narrative: General: WD/WN female in NAD; more interactive Heart: normal S1 and S2; no rub Lungs: clear bilaterally Abdomen: soft, nondistended, positive bowel sounds Extremities: no coral
--- NOTE | 2022-07-30 11:32 | PM.PNNEP ---
Progress Note: A&P Assessment and Plan (1) End stage renal disease: Code(s): N18.6 - End stage renal disease Status: Chronic Assessment and Plan: continue nightly CCPD follow electrolytes, volume status, and clearance (2) Septic shock: Code(s): A41.9 - Sepsis, unspecified organism; R65.21 - Severe sepsis with septic shock Status: Acute Assessment and Plan: after original presentation with septic syndrome, she improved however seems worse now BP better at this time however, WBC and CRP remain quite elevated CT of abd/pelvis (on 07/24) noted -- stercoral proctitis playing a role? possible peritonitis from bowel translocation? GI recommendations noted urine culture with VRE blood cultures and PD fluid cultures negative to date\ repeat PD fluid cell count (07/29/22) has improved (3) Altered mental status: Code(s): R41.82 - Altered mental status, unspecified Status: Acute Assessment and Plan: improvement noted related to infection(?) recent head CT with left parietal subarachnoid and potentially intraparenchymal hemorrhage of the brain versus calcification Neurosurgery recommendations noted CT angiogram of brain results noted follow trend of mentation (4) Hyponatremia: Code(s): E87.1 - Hypo-osmolality and hyponatremia Status: Acute Assessment and Plan: due to dilution (fluid boluses and incomplete peritoneal dialysis (on 07/23 - 07/24) sodium better s/p 3% saline x 2 and more aggressive dialysis follow trend (5) Pneumonia: Code(s): J18.9 - Pneumonia, unspecified organism Status: Acute Assessment and Plan: chest x-ray shows persistent infiltrates in the right lung on antibiotics on room air (6) Right flank pain: Code(s): R10.9 - Unspecified abdominal pain Status: Acute Assessment and Plan: extensive work-up evaluation to date has been unrevealing 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 related to recent CT scan (on 07/24) findings (?) follow clinical symptoms (7) Anemia: Code(s): D64.9 - Anemia, unspecified Status: Chronic Assessment and Plan: due to ESRD and acute illness on Epogen suspect some Epogen resistance give high degree of inflammation follow H/H (8) Diabetes mellitus: Onset Date: ~1995 Qualifiers: Diabetes mellitus type: type 2 Diabetes mellitus long-term insulin use: without long-term use Diabetes mellitus complication status: without complication Qualified Code(s): E11.9 - Type 2 diabetes mellitus without complications Code(s): E11.9 - Type 2 diabetes mellitus without complications Status: Chronic Assessment and Plan: on accuchecks glycemic control per hospitalists Will continue to follow. Subjective Date/time seen: 07/30/22 11:32 Mentation continues to improve in the last few days (but still not fully back to baseline) -- she recognized me and is asking when the NG tube can be removed and when she can go home; her is at beside and agree the her neurological status is significantly better; WBC continues to improve as well with interventions to date; tolerated peritoneal dialysis treatment overnight without any issues. Exam Narrative: General: WD/WN female in NAD; more interactive Heart: normal S1 and S2; no rub Lungs: clear bilaterally Abdomen: soft, nondistended, positive bowel sounds Extremities: no edema or cyanosis Skin: warm and dry Objective Data Vital Signs Vital Signs: Vital Signs Temp Pulse Resp BP Pulse Ox O2 Del Method 07/30/22 11:00 97.4 F L 99 16 106/48 L 100 07/30/22 08:00 97.4 F L 98 16 102/54 L 99 07/30/22 04:00 98 Room Air 07/30/22 06:00 99 07/30/22 04:00 83 07/30/22 02:00 105 H 07/30/22 07:49 97.7 F 94 18 112/54 L 07/30/22 04:00 97.7 F 94 18 112/54 L 100 07/30/22 00:00 98 07/29/22 22:00 1
[2022-07-30 12:37] LABS: Glucose Point of Care 286 mg/dl (65-105)
[2022-07-30] MEDS: EPOETIN ALFA-EPBX 10,000 UNITS/ML VIAL 10000 UNITS SUB-Q (15:31)
[2022-07-30 16:55] LABS: Glucose Point of Care 171 mg/dl (65-105)
[2022-07-30 21:25] LABS: Glucose Point of Care 181 mg/dl (65-105)
[2022-07-31] VITALS (15 sets, daily range): BP systolic 95–124; BP diastolic 64–83; PULSE 83–109; RESP 18–20; TEMP 35.9–37.2; O2SAT 96–100
[2022-07-31] MEDS: CENTRAL LINE FLUSH 10 ML IV PUSH ×3 (05:49→22:22)
[2022-07-31] MEDS: metroNIDAZOLE 500 MG/ISO 100ML 500 MG/100 ML BAG 100 MG IVPB ×3 (05:52→22:21)
[2022-07-31] MEDS: LEVOTHYROXINE SODIUM 12.5 MCG TABLET PO (06:02)
[2022-07-31 07:49] LABS: Basophils Absolute Auto 0.1 K/mm3 (0.0-0.1); Basophils Percent Auto 0.5 % (0.2-1.2); Eosinophils Absolute Auto 0.2 K/mm3 (0-0.3); Hematocrit 29.2 % (37.0-47.0); Hemoglobin 8.7 g/dL (12.0-15.0); Immature Granulocyte Absolute 0.14 K/mm3 (0.00-0.031); Immature Granulocyte Percent A 1.3 % (0-0.5); Lymphocytes Absolute Auto 1.39 K/mm3 (0.9-3.2); Lymphocytes Percent Auto 12.6 % (18.3-44.2); Mean Corpuscular HGB Conc 29.8 g/dl (32-36); Mean Corpuscular Hemoglobin 31.3 pg (26-34); Mean Platelet Volume 9.7 fl (7.4-10.4); Monocytes Absolute Auto 0.9 K/mm3 (0.1-0.6); Monocytes Percent Auto 7.7 % (2.6-8.5); Neutrophils Absolute Auto 8.4 K/mm3 (1.3-6.7); Neutrophils Percent Auto 75.9 % (45.5-73.1); Nucleated Red Blood Cells Perc 0.2 % (0.0-0.2); Platelet Count Result 127 k/mm3 (150-375); Red Blood Count 2.78 M/mm3 (4.2-5.4); Red Cell Distribution Width 18.8 % (11.5-14.5); White Blood Count 11.1 K/mm3 (4.5-10.0)
[2022-07-31 08:01] LABS: Ammonia < 9 umol/L (9-30)
[2022-07-31 08:12] LABS: Alanine Aminotransferase 11 U/L (6-35); Albumin Level 2.5 g/dL (3.5-5.1); Alkaline Phosphatase 223 U/L (38-126); Anion Gap 8 mmol/L (8-16); Aspartate Amino Transferase 17 U/L (14-36); Bilirubin,Total 0.5 mg/dL (0.2-1.3); Blood Urea Nitrogen 67 mg/dL (7-17); Calcium 8.3 mg/dL (8.4-10.2); Carbon Dioxide 23 mmol/L (22-30); Chloride 92 mmol/L (98-107); Glucose 246 mg/dL (65-110); Magnesium 2.4 mg/dL (1.6-2.3); Phosphorus 3.5 mg/dL (2.5-4.5); Sodium 123 mmol/L (137-145)
[2022-07-31] MEDS: INSULIN ASPART (*BKC) 100 UNITS/ML SUB-Q ×2 (08:15→12:25)
[2022-07-31] MEDS: INSULIN GLARGINE (*BKC) 100 UNITS/ML 15 UNITS SUB-Q (08:15)
[2022-07-31 08:19] LABS: Estimated CRCL calculation 9 ml/min; Estimated Glomerular Filt Rate 7
[2022-07-31] MEDS: PANTOPRAZOLE SODIUM IV 40 MG VIAL IV PUSH (08:19)
[2022-07-31] MEDS: polyethylene glycoL 3350 17 GM POWD.PACK PO ×3 (08:19→16:57)
[2022-07-31] MEDS: MIDODRINE HCL 10 MG TABLET PO ×3 (08:19→17:25)
[2022-07-31] MEDS: allopurinoL 150 MG TABLET PO (08:20)
[2022-07-31] MEDS: GABAPENTIN 100 MG CAPSULE PO ×3 (08:20→16:58)
[2022-07-31 08:27] LABS: Anisocytosis 1+ (NORMAL); Poikilocytosis 2+ (NORMAL); Schistocytes None Seen (NORMAL); Target Cells 1+ (NORMAL)
[2022-07-31] MEDS: LINEZOLID 600 MG/300 ML 600 MG/300 ML SOLN 300 MG IVPB ×2 (08:29→21:20)
--- NOTE | 2022-07-31 09:00 | PCHDNOTE ---
Patient disconnected from [facility]CPD Cycler. PD catheter stabilized/secured to abdomen. Total UF: 961
[2022-07-31 09:03] LABS: Glucose Point of Care 264 mg/dl (65-105)
--- NOTE | 2022-07-31 12:06 | P.PNNP_ITS ---
Progress Note: A&P Assessment and Plan (1) End stage renal disease: Code(s): N18.6 - End stage renal disease Status: Chronic Assessment and Plan: * continue nightly CCPD * follow electrolytes, volume status, and clearance (2) Septic shock: Code(s): A41.9 - Sepsis, unspecified organism; R65.21 - Severe sepsis with septic shock Status: Acute Assessment and Plan: * after original presentation with septic syndrome, she improved * however, then she worsened, and now appears better * BP better at this time * WBC and CRP improving * CT of abd/pelvis (on 07/24) noted -- stercoral proctitis playing a role? * possible peritonitis from bowel translocation? * GI recommendations noted * urine culture with VRE * blood cultures and PD fluid cultures negative to date * repeat PD fluid cell count (07/29/22) has improved (3) Altered mental status: Code(s): R41.82 - Altered mental status, unspecified Status: Acute Assessment and Plan: * improvement noted * related to infection(?) * recent head CT with left parietal subarachnoid and potentially intraparenchymal hemorrhage of the brain versus calcification * Neurosurgery recommendations noted * CT angiogram of brain results noted * follow trend of mentation (4) Hyponatremia: Code(s): E87.1 - Hypo-osmolality and hyponatremia Status: Acute Assessment and Plan: * due to dilution [fluid boluses and incomplete peritoneal dialysis (on 07/23 - 07/24)] and free water intake (ice chips) * sodium better s/p 3% saline x 2 and more aggressive dialysis * follow trend (5) Pneumonia: Code(s): J18.9 - Pneumonia, unspecified organism Status: Acute Assessment and Plan: * chest x-ray shows persistent infiltrates in the right lung * on antibiotics * on room air (6) Right flank pain: Code(s): R10.9 - Unspecified abdominal pain Status: Acute Assessment and Plan: * extensive work-up evaluation to date has been 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 * related to recent CT scan (on 07/24) findings (?) * follow clinical symptoms (7) Anemia: Code(s): D64.9 - Anemia, unspecified Status: Chronic Assessment and Plan: * due to ESRD and acute illness * on Epogen * suspect some Epogen resistance give high degree of inflammation * follow H/H (8) Diabetes mellitus: Onset Date: ~1995 Qualifiers: Diabetes mellitus type: type 2 Diabetes mellitus jail insulin use: without jail use Diabetes mellitus complication status: without complication Qualified Code(s): E11.9 - Type 2 diabetes mellitus without complications Code(s): E11.9 - Type 2 diabetes mellitus without complications Status: Chronic Assessment and Plan: * on accuchecks * glycemic control per hospitalists Long and extensive discussion ( greater than 20 minutes) with the patient as well as her and family at bedside with regard to her acute medical issues, the tentative plan as already outlined above, and the hope for continued improvement as evidenced by her improvement over the last 3 or 4 days. They all appeared to voice understanding. Will continue to follow. Subjective Date/time seen: 07/31/22 12:06 Continues to tolerate peritoneal dialysis treatments overnight without any issue or problems; mentation continues to improve in general and confirmed with /family at bedside; no apparent distress noted; has been taking ice chips reasonably well along with
--- NOTE | 2022-07-31 12:06 | PM.PNNEP ---
Progress Note: A&P Assessment and Plan (1) End stage renal disease: Code(s): N18.6 - End stage renal disease Status: Chronic Assessment and Plan: continue nightly CCPD follow electrolytes, volume status, and clearance (2) Septic shock: Code(s): A41.9 - Sepsis, unspecified organism; R65.21 - Severe sepsis with septic shock Status: Acute Assessment and Plan: after original presentation with septic syndrome, she improved however, then she worsened, and now appears better BP better at this time WBC and CRP improving CT of abd/pelvis (on 07/24) noted -- stercoral proctitis playing a role? possible peritonitis from bowel translocation? GI recommendations noted urine culture with VRE blood cultures and PD fluid cultures negative to date repeat PD fluid cell count (07/29/22) has improved (3) Altered mental status: Code(s): R41.82 - Altered mental status, unspecified Status: Acute Assessment and Plan: improvement noted related to infection(?) recent head CT with left parietal subarachnoid and potentially intraparenchymal hemorrhage of the brain versus calcification Neurosurgery recommendations noted CT angiogram of brain results noted follow trend of mentation (4) Hyponatremia: Code(s): E87.1 - Hypo-osmolality and hyponatremia Status: Acute Assessment and Plan: due to dilution [fluid boluses and incomplete peritoneal dialysis (on 07/23 - 07/24)] and free water intake (ice chips) sodium better s/p 3% saline x 2 and more aggressive dialysis follow trend (5) Pneumonia: Code(s): J18.9 - Pneumonia, unspecified organism Status: Acute Assessment and Plan: chest x-ray shows persistent infiltrates in the right lung on antibiotics on room air (6) Right flank pain: Code(s): R10.9 - Unspecified abdominal pain Status: Acute Assessment and Plan: extensive work-up evaluation to date has been unrevealing NECK BAND SETTER related to recent CT scan (on 07/24) findings (?) follow clinical symptoms (7) Anemia: Code(s): D64.9 - Anemia, unspecified Status: Chronic Assessment and Plan: due to ESRD and acute illness on Epogen suspect some Epogen resistance give high degree of inflammation follow H/H (8) Diabetes mellitus: Onset Date: ~1995 Qualifiers: Diabetes mellitus type: type 2 Diabetes mellitus long-term insulin use: without manager long term care use Diabetes mellitus complication status: without complication Qualified Code(s): E11.9 - Type 2 diabetes mellitus without complications Code(s): E11.9 - Type 2 diabetes mellitus without complications Status: Chronic Assessment and Plan: on accuchecks glycemic control per hospitalists Long and extensive discussion ( greater than 20 minutes) with the patient as well as her and family at bedside with regard to her acute medical issues, the tentative plan as already outlined above, and the hope for continued improvement as evidenced by her improvement over the last 3 or 4 days. They all appeared to voice understanding. Will continue to follow. Subjective Date/time seen: 07/31/22 12:06 Continues to tolerate peritoneal dialysis treatments overnight without any issue or problems; mentation continues to improve in general and confirmed with /family at bedside; no apparent distress noted; has been taking ice chips reasonably well along with her tube feeds; no other events overnight or earlier this AM. Exam Narrative: General: WD/WN female in NAD; more interactive in general Heart: normal S1 and S2; no rub Lungs: clear bilaterally Abdomen: soft, nondistended, positive bowel sounds Extremities: no edema or cyanosis Skin: warm and intact Objective Data Vital Signs Vital Signs: Vital Signs Temp Pulse Resp BP Pulse Ox O2 Del Method 07/31/22 12:00 106 H
--- NOTE | 2022-07-31 12:43 | PM.IMPN ---
Progress Note: A&P Assessment and Plan (1) Septic shock: Code(s): A41.9 - Sepsis, unspecified organism; R65.21 - Severe sepsis with septic shock Status: Acute Assessment and Plan: CXR shows persistent infiltrates in right mid and lower lung which may be pneumonia 07/20, repeat 07/29 pending BCx 07/20 negative Peritoneal Cx 07/21 NGTD Left hip Cx 07/21 NGTD UCx 07/22 growing 100K CFU VRE, started on linezolid 07/24 Peritoneal Fluid 07/24: WBC 2675 with 61% neutrophils, on primaxin + flagyl Peritoneal Cx 07/24 NGTD; No fungal elements. She was started on Aztreonam and Vanco. Levophed infusion started on admission and was able to be weaned off 07/21; also treated with IV fluids and Albumin. Solu-Cortef started but has since been stopped. Midodrine added 07/21. Concern for peritonitis given exam findings on 07/24. BP soft and WBC climbing. Abx adjusted to Primaxin, Flagyl and vanco. CT A/P scan 07/24 showing large amount of retained fecal material in the rectum which is distended. Mild perirectal fluid/inflammation extending into the presacral space. Likely stercoral proctitis, GI on board. 07/24: Urine cx came back VRE, started on linezolid, vanc d/c. Leuk improving on linezolid, primaxin and flagyl (2) Peritonitis: Code(s): K65.9 - Peritonitis, unspecified Status: Acute Assessment and Plan: Peritoneal fluid 07/21 showing no WBC/1 RBC. Cx NGTD. Peritonitis was ruled out but now having increasing pain so testing repeated. Peritoneal fluid 07/24 showing 500RBC/2675WBC with 61% neutrophils c/w peritonitis. CT Abd/pelvis as above. Rectal bleeding felt related to probable stercoral ulcer, now resolved. Repeat cultures NGTD Continue current IV abx with primaxin + flagyl (3) Constipation: Code(s): K59.00 - Constipation, unspecified Status: Acute Assessment and Plan: CT scan as mentioned above. Now having rectal bleeding felt related to stercoral ulcer. Soap suds enema given and Miralax started. Consider microperforation given the perirectal inflammation but unclear since she does have PD. GI following. Continue Miralax BID. 07/29: rectal bleeding resolved 07/30: Stool appears to be hardening more again, will increase bowel regimen to prevent further damage 07/31: Stool much softer today, continue bowel regimen (4) Hyponatremia: Code(s): E87.1 - Hypo-osmolality and hyponatremia Status: Acute Assessment and Plan: Appreciate nephrology consultation, corrected with dialysis Sodium back down to 123 today (5) Trochanteric bursitis, left hip: Code(s): M70.62 - Trochanteric bursitis, left hip Status: Acute Assessment and Plan: CT scan of the hip showed severe left trochanteric bursitis with fluid collection measuring 8.4 x 2.4 x 12.0 cm. Close to 200 mL of fluid was removed on 07/21, pigtail catheter left in place. Culture sent and there is no growth. Discussed with orthopedics. Fluid collection may be related to to her peritoneal dialysis. No further management for this at this time, ortho s/o, will pull drain soon (6) Pneumonia: Code(s): J18.9 - Pneumonia, unspecified organism Status: Acute Assessment and Plan: 07/20 CXR showing persistent right mid and lower lung field infiltrates. Repeat pending today, 07/29 Stable on RA Update: Repeat chest x-ray unchanged from initial, suspect this is scarring and not any sign of pneumonia (7) Hip pain: Code(s): M25.559 - Pain in unspecified hip Status: Acute Assessment and Plan: Hip CT showing moderate left hip OA and severe left trochanteric bursitis with large fluid collection at 8.4x12cm. Drained 07/21, see above Will recheck CT today, pull drain if it looks resolved (8) Diabetes mellitus: Onset Date: ~1995 Qualifiers: Diabetes mellitus type: type 2 Diabetes mellitus retirement insulin use: without retirement use Diabet
[2022-07-31 14:10] LABS: Glucose Point of Care 248 mg/dl (65-105)
[2022-07-31 17:05] LABS: Glucose Point of Care 186 mg/dl (65-105)
--- NOTE | 2022-07-31 18:06 | PCHDNOTE ---
Pd treatment initiated without difficulty. PD cath dressing was changed. No S/S of infection noted. Drain bags double clamped.
[2022-07-31 20:04] LABS: Glucose Point of Care 296 mg/dl (65-105)
[2022-08-01] VITALS (9 sets, daily range): BP systolic 105–124; BP diastolic 54–78; PULSE 86–105; RESP 16–33; TEMP 35.6–36.7; O2SAT 97–100
[2022-08-01 05:06] LABS: Estimated CRCL calculation 8 ml/min; Estimated Glomerular Filt Rate 7
[2022-08-01] MEDS: LEVOTHYROXINE SODIUM 12.5 MCG TABLET PO (05:37)
[2022-08-01] MEDS: metroNIDAZOLE 500 MG/ISO 100ML 500 MG/100 ML BAG 100 MG IVPB ×3 (05:37→22:00)
[2022-08-01] MEDS: CENTRAL LINE FLUSH 10 ML IV PUSH ×3 (05:37→22:00)
[2022-08-01 08:18] LABS: Glucose Point of Care 199 mg/dl (65-105)
--- NOTE | 2022-08-01 08:45 | PCHDNOTE ---
Patient discontinued from cycler without difficulty. No acute distress noted. PD catheter stabilized/secured to abdomen. Total UF: 1606
[2022-08-01] MEDS: MIDODRINE HCL 10 MG TABLET PO ×3 (09:39→17:38)
[2022-08-01] MEDS: LINEZOLID 600 MG/300 ML 600 MG/300 ML SOLN 300 MG IVPB (09:39)
[2022-08-01] MEDS: allopurinoL 150 MG TABLET PO (09:40)
[2022-08-01] MEDS: INSULIN GLARGINE (*BKC) 100 UNITS/ML 15 UNITS SUB-Q (09:40)
[2022-08-01] MEDS: FLUTICASONE PROPIONATE 0.05% NA SPR 16 GM BTL (*BKC) 1 SPRAY NASAL ×2 (09:40→17:38)
[2022-08-01] MEDS: GABAPENTIN 100 MG CAPSULE PO ×3 (09:40→17:38)
[2022-08-01] MEDS: PANTOPRAZOLE SODIUM IV 40 MG VIAL IV PUSH (09:41)
[2022-08-01] MEDS: LIDOCAINE 5% PATCH 2 PATCH TOPICAL (09:41)
[2022-08-01] MEDS: polyethylene glycoL 3350 17 GM POWD.PACK PO ×2 (09:42→17:38)
--- NOTE | 2022-08-01 10:15 | PM.PNNEP ---
Progress Note: A&P Assessment and Plan (1) End stage renal disease: Code(s): N18.6 - End stage renal disease Status: Chronic Assessment and Plan: continue nightly CCPD follow electrolytes, volume status, and clearance (2) Septic shock: Code(s): A41.9 - Sepsis, unspecified organism; R65.21 - Severe sepsis with septic shock Status: Acute Assessment and Plan: after original presentation with septic syndrome, she improved however, then she worsened, and now appears better currently BP better at this time WBC and CRP improving CT of abd/pelvis (on 07/24) noted -- stercoral proctitis playing a role? possible peritonitis from bowel translocation? GI recommendations noted urine culture with VRE blood cultures and PD fluid cultures negative to date repeat PD fluid cell count (07/29/22) has improved (3) Altered mental status: Code(s): R41.82 - Altered mental status, unspecified Status: Acute Assessment and Plan: improvement noted related to infection(?) recent head CT with left parietal subarachnoid and potentially intraparenchymal hemorrhage of the brain versus calcification Neurosurgery recommendations noted CT angiogram of brain results noted follow trend of mentation (4) Hyponatremia: Code(s): E87.1 - Hypo-osmolality and hyponatremia Status: Acute Assessment and Plan: due to dilution [fluid boluses and incomplete peritoneal dialysis (on 07/23 - 07/24)] and free water intake (ice chips) sodium better s/p 3% saline x 2 and more aggressive dialysis follow trend (5) Pneumonia: Code(s): J18.9 - Pneumonia, unspecified organism Status: Acute Assessment and Plan: chest x-ray shows persistent infiltrates in the right lung on antibiotics on room air (6) Right flank pain: Code(s): R10.9 - Unspecified abdominal pain Status: Acute Assessment and Plan: extensive work-up evaluation to date has been unrevealing 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 related to recent CT scan (on 07/24) findings (?) follow clinical symptoms (7) Anemia: Code(s): D64.9 - Anemia, unspecified Status: Chronic Assessment and Plan: due to ESRD and acute illness on Epogen suspect some Epogen resistance give high degree of inflammation follow H/H (8) Diabetes mellitus: Onset Date: ~1995 Qualifiers: Diabetes mellitus complication status: without complication 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 Subjective Date/time seen: 08/01/22 10:15 Tolerated peritoneal dialysis treatment overnight without any issues or problems; eating and drinking reasonably well; at bedside reports they will likely remove NG tube later today; no apparent distress noted. Exam Narrative: General: WD/WN female in NAD (mentation continues to improve) Heart: normal S1 and S2; no rub Lungs: clear bilaterally Abdomen: soft, nondistended, positive bowel sounds Extremities: no edema or cyanosis Skin: no rash Objective Data Vital Signs Vital Signs: Vital Signs Temp Pulse Resp BP Pulse Ox O2 Del Method 08/01/22 08:37 96.1 F L 94 20 105/58 L 100 08/01/22 06:00 95 08/01/22 04:00 90 20 98 Room Air 08/01/22 04:00 87 08/01/22 02:00 94 08/01/22 04:00 98.0 F 90 20 119/69 98 08/01/22 00:00 105 H 18 99 Room Air 08/01/22 00:00 105 H 07/31/22 23:36 98.0 F 94 18 121/70 99 07/31/22 22:00 83 07/31/22 20:00 101 H 07/31/22 20:00 104 H 20 100 Room Air 07/31/22 20:00 97 F L 104 H 20 124/76 100
--- NOTE | 2022-08-01 10:15 | P.PNNP_ITS ---
Progress Note: A&P Assessment and Plan (1) End stage renal disease: Code(s): N18.6 - End stage renal disease Status: Chronic Assessment and Plan: * continue nightly CCPD * follow electrolytes, volume status, and clearance (2) Septic shock: Code(s): A41.9 - Sepsis, unspecified organism; R65.21 - Severe sepsis with septic shock Status: Acute Assessment and Plan: * after original presentation with septic syndrome, she improved * however, then she worsened, and now appears better currently * BP better at this time * WBC and CRP improving * CT of abd/pelvis (on 07/24) noted -- stercoral proctitis playing a role? * possible peritonitis from bowel translocation? * GI recommendations noted * urine culture with VRE * blood cultures and PD fluid cultures negative to date * repeat PD fluid cell count (07/29/22) has improved (3) Altered mental status: Code(s): R41.82 - Altered mental status, unspecified Status: Acute Assessment and Plan: * improvement noted * related to infection(?) * recent head CT with left parietal subarachnoid and potentially intraparenchymal hemorrhage of the brain versus calcification * Neurosurgery recommendations noted * CT angiogram of brain results noted * follow trend of mentation (4) Hyponatremia: Code(s): E87.1 - Hypo-osmolality and hyponatremia Status: Acute Assessment and Plan: * due to dilution [fluid boluses and incomplete peritoneal dialysis (on 07/23 - 07/24)] and free water intake (ice chips) * sodium better s/p 3% saline x 2 and more aggressive dialysis * follow trend (5) Pneumonia: Code(s): J18.9 - Pneumonia, unspecified organism Status: Acute Assessment and Plan: * chest x-ray shows persistent infiltrates in the right lung * on antibiotics * on room air (6) Right flank pain: Code(s): R10.9 - Unspecified abdominal pain Status: Acute Assessment and Plan: * extensive work-up evaluation to date has been unrevealing AEROLOGIST * related to recent CT scan (on 07/24) findings (?) * follow clinical symptoms (7) Anemia: Code(s): D64.9 - Anemia, unspecified Status: Chronic Assessment and Plan: * due to ESRD and acute illness * on Epogen * suspect some Epogen resistance give high degree of inflammation * follow H/H (8) Diabetes mellitus: Onset Date: ~1995 Qualifiers: Diabetes mellitus complication status: without complication Diabetes mellitus mcfp insulin use: without medical terminologist use Diabetes mellitus type: type 2 Qualified Code(s): E11.9 - Type 2 diabetes mellitus without complications Code(s): E11.9 - Type 2 diabetes mellitus without complications Status: Chronic Assessment and Plan: * on accuchecks * glycemic control per hospitalists Will continue to follow. Subjective Date/time seen: 08/01/22 10:15 Tolerated peritoneal dialysis treatment overnight without any issues or problems; eating and drinking reasonably well; at bedside reports they will likely remove NG tube later today; no apparent distress noted. Exam Narrative: General: WD/WN female in NAD (mentation continues to improve) Heart: normal S1 and S2; no rub Lungs: clear bilaterally Abdomen: soft, nondistended, positive bowel sounds Extremities: no edema or cyanosis Skin: no rash Objective Data Vital Signs Vital Signs:
[2022-08-01 11:26] LABS: Glucose Point of Care 244 mg/dl (65-105)
--- NOTE | 2022-08-01 12:06 | PM.IMPN ---
Progress Note: A&P Assessment and Plan (1) Septic shock: Code(s): A41.9 - Sepsis, unspecified organism; R65.21 - Severe sepsis with septic shock Status: Acute Assessment and Plan: CXR shows persistent infiltrates in right mid and lower lung which may be pneumonia 07/20, repeat 07/29 pending BCx 07/20 negative Peritoneal Cx 07/21 NGTD Left hip Cx 07/21 NGTD UCx 07/22 growing 100K CFU VRE, started on linezolid 07/24 Peritoneal Fluid 07/24: WBC 2675 with 61% neutrophils, on primaxin + flagyl Peritoneal Cx 07/24 NGTD; No fungal elements. She was started on Aztreonam and Vanco. Levophed infusion started on admission and was able to be weaned off 07/21; also treated with IV fluids and Albumin. Solu-Cortef started but has since been stopped. Midodrine added 07/21. Concern for peritonitis given exam findings on 07/24. BP soft and WBC climbing. Abx adjusted to Primaxin, Flagyl and vanco. CT A/P scan 07/24 showing large amount of retained fecal material in the rectum which is distended. Mild perirectal fluid/inflammation extending into the presacral space. Likely stercoral proctitis, GI on board. 07/24: Urine cx came back VRE, started on linezolid, vanc d/c. Leuk improving on linezolid, primaxin and flagyl 08/01: Discontinue linezolid today to complete 7 day course for VRE UTI, will discontinue Primaxin and Flagyl tomorrow to complete a 10 day course (2) Peritonitis: Code(s): K65.9 - Peritonitis, unspecified Status: Acute Assessment and Plan: Peritoneal fluid 07/21 showing no WBC/1 RBC. Cx NGTD. Peritonitis was ruled out but now having increasing pain so testing repeated. Peritoneal fluid 07/24 showing 500RBC/2675WBC with 61% neutrophils c/w peritonitis. CT Abd/pelvis as above. Rectal bleeding felt related to probable stercoral ulcer, now resolved. Repeat cultures NGTD Continue current IV abx with primaxin + flagyl, end date tomorrow (3) Constipation: Code(s): K59.00 - Constipation, unspecified Status: Acute Assessment and Plan: CT scan as mentioned above. Now having rectal bleeding felt related to stercoral ulcer. Soap suds enema given and Miralax started. Consider microperforation given the perirectal inflammation but unclear since she does have PD. GI following. Continue Miralax BID. 07/29: rectal bleeding resolved 07/30: Stool appears to be hardening more again, will increase bowel regimen to prevent further damage 07/31: Stool much softer today, continue bowel regimen 08/01: Stool watery today, diet advanced as tolerated, decrease MiraLax from t.i.d. to daily (4) Hyponatremia: Code(s): E87.1 - Hypo-osmolality and hyponatremia Status: Acute Assessment and Plan: Appreciate nephrology consultation, corrected with dialysis Sodium pending for today (5) Trochanteric bursitis, left hip: Code(s): M70.62 - Trochanteric bursitis, left hip Status: Acute Assessment and Plan: CT scan of the hip showed severe left trochanteric bursitis with fluid collection measuring 8.4 x 2.4 x 12.0 cm. Close to 200 mL of fluid was removed on 07/21, pigtail catheter left in place. Culture sent and there is no growth. Discussed with orthopedics. Fluid collection may be related to to her peritoneal dialysis. CT showed minimal residual fluid collection, will pull drain today (6) Pneumonia: Code(s): J18.9 - Pneumonia, unspecified organism Status: Acute Assessment and Plan: 07/20 CXR showing persistent right mid and lower lung field infiltrates. Repeat pending today, 07/29 Stable on RA Update: Repeat chest x-ray unchanged from initial, suspect this is scarring and not any sign of pneumonia (7) Hip pain: Code(s): M25.559 - Pain in unspecified hip Status: Acute Assessment and Plan: Hip CT showing moderate left hip OA and severe left trochanteric bursitis with large fluid collection at 8.4x12cm. Drained 07/21, see a
[2022-08-01] MEDS: INSULIN ASPART (*BKC) 100 UNITS/ML SUB-Q (12:13)
--- NOTE | 2022-08-01 14:55 | PC.NURSE ---
This patient, Shantelle Salinas, was received from [facility] on 08/01/22 at 1435. Patient/family oriented to unit policies and routines
--- NOTE | 2022-08-01 16:40 | PC.NURSE ---
This patient, Shantelle Salinas, was transferred to [facility] on 08/01/22 at 1415. Personal belongings sent with patient. Report given to Evita ARREDONDO. Appropriate documentation sent with patient.
[2022-08-01 17:23] LABS: Glucose Point of Care 169 mg/dl (65-105)
[2022-08-01] MEDS: ACETAMINOPHEN 325 MG TABLET 650 MG PO (17:38)
[2022-08-01] MEDS: ONDANSETRON INJ 4 MG/2 ML VIAL IV PUSH (18:01)
[2022-08-01 19:40] LABS: Basophils Absolute Auto 0.1 K/mm3 (0.0-0.1); Basophils Percent Auto 0.5 % (0.2-1.2); Eosinophils Absolute Auto 0.2 K/mm3 (0-0.3); Hematocrit 31.7 % (37.0-47.0); Hemoglobin 9.5 g/dL (12.0-15.0); Lymphocytes Absolute Auto 1.26 K/mm3 (0.9-3.2); Mean Corpuscular Hemoglobin 30.4 pg (26-34); Mean Corpuscular Volume 101.3 fl (80-100); Mean Platelet Volume 10.3 fl (7.4-10.4); Monocytes Absolute Auto 0.6 K/mm3 (0.1-0.6); Monocytes Percent Auto 5.4 % (2.6-8.5); Neutrophils Absolute Auto 8.3 K/mm3 (1.3-6.7); Neutrophils Percent Auto 79.1 % (45.5-73.1); Platelet Count Result 104 k/mm3 (150-375); Red Blood Count 3.13 M/mm3 (4.2-5.4); Red Cell Distribution Width 18.3 % (11.5-14.5); White Blood Count 10.5 K/mm3 (4.5-10.0)
[2022-08-01 20:05] LABS: Alanine Aminotransferase 11 U/L (6-35); Albumin Level 2.8 g/dL (3.5-5.1); Alkaline Phosphatase 112 U/L (38-126); Anion Gap 10 mmol/L (8-16); Aspartate Amino Transferase 21 U/L (14-36); Bilirubin,Total 0.8 mg/dL (0.2-1.3); Blood Urea Nitrogen 66 mg/dL (7-17); Calcium 8.2 mg/dL (8.4-10.2); Carbon Dioxide 23 mmol/L (22-30); Chloride 91 mmol/L (98-107); Estimated CRCL calculation 9 ml/min; Estimated Glomerular Filt Rate 7; Glucose 214 mg/dL (65-110); Sodium 124 mmol/L (137-145)
[2022-08-01 21:58] LABS: Glucose Point of Care 225 mg/dl (65-105)
[2022-08-02] VITALS (8 sets, daily range): BP systolic 88–122; BP diastolic 46–63; PULSE 73–110; RESP 14–36; TEMP 35.6–36.5; O2SAT 99–100
[2022-08-02] MEDS: CENTRAL LINE FLUSH 10 ML IV PUSH (05:32)
[2022-08-02] MEDS: metroNIDAZOLE 500 MG/ISO 100ML 500 MG/100 ML BAG 100 MG IVPB ×3 (05:32→20:49)
[2022-08-02] MEDS: LEVOTHYROXINE SODIUM 12.5 MCG TABLET PO (05:32)
[2022-08-02 06:01] LABS: Basophils Absolute Auto 0.1 K/mm3 (0.0-0.1); Basophils Percent Auto 0.6 % (0.2-1.2); Eosinophils Absolute Auto 0.2 K/mm3 (0-0.3); Eosinophils Percent Auto 2.4 % (0-4.4); Hematocrit 26.8 % (37.0-47.0); Hemoglobin 8.1 g/dL (12.0-15.0); Immature Platelet Fraction Pct 2.5 % (0.9-11.2); Lymphocytes Absolute Auto 1.69 K/mm3 (0.9-3.2); Lymphocytes Percent Auto 17.3 % (18.3-44.2); Mean Corpuscular HGB Conc 30.2 g/dl (32-36); Mean Corpuscular Hemoglobin 30.9 pg (26-34); Mean Corpuscular Volume 102.3 fl (80-100); Mean Platelet Volume 10.3 fl (7.4-10.4); Monocytes Absolute Auto 0.6 K/mm3 (0.1-0.6); Monocytes Percent Auto 6.1 % (2.6-8.5); Neutrophils Absolute Auto 7.1 K/mm3 (1.3-6.7); Neutrophils Percent Auto 72.6 % (45.5-73.1); Platelet Count Result 89 k/mm3 (150-375); Red Blood Count 2.62 M/mm3 (4.2-5.4); Red Cell Distribution Width 18.2 % (11.5-14.5); White Blood Count 9.8 K/mm3 (4.5-10.0)
[2022-08-02 06:24] LABS: Alanine Aminotransferase 10 U/L (6-35); Albumin Level 2.3 g/dL (3.5-5.1); Alkaline Phosphatase 84 U/L (38-126); Anion Gap 7 mmol/L (8-16); Aspartate Amino Transferase 16 U/L (14-36); Bilirubin,Total 0.7 mg/dL (0.2-1.3); Blood Urea Nitrogen 60 mg/dL (7-17); Calcium 8.2 mg/dL (8.4-10.2); Carbon Dioxide 25 mmol/L (22-30); Chloride 91 mmol/L (98-107); Glucose 142 mg/dL (65-110); Potassium 2.6 mmol/L (3.4-5.0); Sodium 123 mmol/L (137-145)
[2022-08-02 06:28] LABS: Estimated CRCL calculation 9 ml/min; Estimated Glomerular Filt Rate 7
--- NOTE | 2022-08-02 06:33 | PC.NURSE ---
K 2.6 MD Brown order 80 meq kcl PO once
[2022-08-02] MEDS: POTASSIUM CHLORIDE 20 MEQ TABLET 80 MEQ PO (07:26)
[2022-08-02 07:55] LABS: Glucose Point of Care 143 mg/dl (65-105)
[2022-08-02] MEDS: FLUTICASONE PROPIONATE 0.05% NA SPR 16 GM BTL (*BKC) 1 SPRAY NASAL ×2 (09:16→16:43)
[2022-08-02] MEDS: GABAPENTIN 100 MG CAPSULE PO ×3 (09:16→17:36)
[2022-08-02] MEDS: allopurinoL 150 MG TABLET PO (09:16)
[2022-08-02] MEDS: INSULIN GLARGINE (*BKC) 100 UNITS/ML 15 UNITS SUB-Q (09:17)
[2022-08-02] MEDS: MIDODRINE HCL 10 MG TABLET PO ×3 (09:18→16:43)
[2022-08-02] MEDS: PANTOPRAZOLE SODIUM IV 40 MG VIAL IV PUSH (09:18)
[2022-08-02] MEDS: polyethylene glycoL 3350 17 GM POWD.PACK PO (09:19)
--- NOTE | 2022-08-02 11:29 | PM.IMPN ---
Progress Note: A&P Assessment and Plan (1) Septic shock: Code(s): A41.9 - Sepsis, unspecified organism; R65.21 - Severe sepsis with septic shock Status: Acute Assessment and Plan: CXR shows persistent infiltrates in right mid and lower lung which may be pneumonia 07/20, repeat 07/29 pending BCx 07/20 negative Peritoneal Cx 07/21 NGTD Left hip Cx 07/21 NGTD UCx 07/22 growing 100K CFU VRE, started on linezolid 07/24 Peritoneal Fluid 07/24: WBC 2675 with 61% neutrophils, on primaxin + flagyl Peritoneal Cx 07/24 NGTD; No fungal elements. She was started on Aztreonam and Vanco. Levophed infusion started on admission and was able to be weaned off 07/21; also treated with IV fluids and Albumin. Solu-Cortef started but has since been stopped. Midodrine added 07/21. Concern for peritonitis given exam findings on 07/24. BP soft and WBC climbing. Abx adjusted to Primaxin, Flagyl and vanco. CT A/P scan 07/24 showing large amount of retained fecal material in the rectum which is distended. Mild perirectal fluid/inflammation extending into the presacral space. Likely stercoral proctitis, GI on board. 07/24: Urine cx came back VRE, started on linezolid, vanc d/c. Leuk improving on linezolid, primaxin and flagyl 08/01: Discontinue linezolid to complete 7 day course for VRE UTI, will discontinue Primaxin and Flagyl tomorrow to complete a 10 day course 08/02: D/c abx today after 10 day course, monitor closely off abx to ensure complete resolution of leukocytosis (2) Peritonitis: Code(s): K65.9 - Peritonitis, unspecified Status: Acute Assessment and Plan: Peritoneal fluid 07/21 showing no WBC/1 RBC. Cx NGTD. Peritonitis was ruled out but now having increasing pain so testing repeated. Peritoneal fluid 07/24 showing 500RBC/2675WBC with 61% neutrophils c/w peritonitis. CT Abd/pelvis as above. Rectal bleeding felt related to probable stercoral ulcer, now resolved. Repeat cultures NGTD Completed 10 day course abx as above (3) Constipation: Code(s): K59.00 - Constipation, unspecified Status: Acute Assessment and Plan: CT scan as mentioned above. Now having rectal bleeding felt related to stercoral ulcer. Soap suds enema given and Miralax started. Consider microperforation given the perirectal inflammation but unclear since she does have PD. GI following. Rectal bleeding resolved Stool more formed today, cont miralax daily (4) Hyponatremia: Code(s): E87.1 - Hypo-osmolality and hyponatremia Status: Acute Assessment and Plan: Appreciate nephrology consultation, corrected with dialysis (5) Trochanteric bursitis, left hip: Code(s): M70.62 - Trochanteric bursitis, left hip Status: Acute Assessment and Plan: CT scan of the hip showed severe left trochanteric bursitis with fluid collection measuring 8.4 x 2.4 x 12.0 cm. Close to 200 mL of fluid was removed on 07/21, pigtail catheter left in place. Culture sent and there is no growth. Discussed with orthopedics. Fluid collection may be related to to her peritoneal dialysis. CT showed minimal residual fluid collection, no pain s/p pulling drain (6) Pneumonia: Code(s): J18.9 - Pneumonia, unspecified organism Status: Acute Assessment and Plan: 07/20 CXR showing persistent right mid and lower lung field infiltrates. Repeat pending today, 07/29 Stable on RA Update: Repeat chest x-ray unchanged from initial, suspect this is scarring and not any sign of pneumonia (7) Hip pain: Code(s): M25.559 - Pain in unspecified hip Status: Acute Assessment and Plan: Hip CT showing moderate left hip OA and severe left trochanteric bursitis with large fluid collection at 8.4x12cm. 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
--- NOTE | 2022-08-02 11:49 | P.PNNP_ITS ---
Progress Note: A&P Assessment and Plan (1) End stage renal disease: Code(s): N18.6 - End stage renal disease Status: Chronic Assessment and Plan: * continue nightly CCPD * follow electrolytes, volume status, and clearance * replace K+ as needed (2) Septic shock: Code(s): A41.9 - Sepsis, unspecified organism; R65.21 - Severe sepsis with septic shock Status: Acute Assessment and Plan: * clinical improvement noted with interventions to date * BP better at this time * WBC and CRP improving * CT of abd/pelvis (on 07/24) noted -- stercoral proctitis playing a role? * possible peritonitis from bowel translocation? * GI recommendations noted * urine culture with VRE * blood cultures and PD fluid cultures negative to date * repeat PD fluid cell count (07/29/22) has improved (3) Altered mental status: Code(s): R41.82 - Altered mental status, unspecified Status: Acute Assessment and Plan: * significant improvement noted * related to infection(?) * recent head CT with left parietal subarachnoid and potentially intraparenchymal hemorrhage of the brain versus calcification * Neurosurgery recommendations noted * CT angiogram of brain results noted * follow trend of mentation (4) Hyponatremia: Code(s): E87.1 - Hypo-osmolality and hyponatremia Status: Acute Assessment and Plan: * due to dilution [fluid boluses and incomplete peritoneal dialysis (on 07/23 - 07/24)] and free water intake (ice chips) * sodium improved s/p 3% saline x 2 and more aggressive dialysis * however, still fluctuating * follow trend (5) Pneumonia: Code(s): J18.9 - Pneumonia, unspecified organism Status: Acute Assessment and Plan: * chest x-ray shows persistent infiltrates in the right lung * on antibiotics * on room air (6) Right flank pain: Code(s): R10.9 - Unspecified abdominal pain Status: Acute Assessment and Plan: * extensive work-up evaluation to date has been unrevealing PRIVATE CHEF * related to recent CT scan (on 07/24) findings (?) * follow clinical symptoms (7) Anemia: Code(s): D64.9 - Anemia, unspecified Status: Chronic Assessment and Plan: * due to ESRD and acute illness * on Epogen * suspect some Epogen resistance give high degree of inflammation * follow H/H (8) Diabetes mellitus: Onset Date: ~1995 Qualifiers: Diabetes mellitus complication status: without complication 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 Subjective Date/time seen: 08/02/22 11:49 Continues to tolerate peritoneal dialysis overnight without any issues or problems; mentation seems back to baseline at the time of my visit; eating and drinking relatively well and is quite happy that the NG ube has since been removed; family including her are quite happy with her progress to date. Exam Narrative: General: WD/WN female in NAD Heart: normal S1 and S2; no rub Lungs: clear bilaterally Abdomen: soft, nondistended, positive bowel sounds Extremities: no edema or cyanosis Skin: no nodules Objective D
--- NOTE | 2022-08-02 11:49 | PM.PNNEP ---
Progress Note: A&P Assessment and Plan (1) End stage renal disease: Code(s): N18.6 - End stage renal disease Status: Chronic Assessment and Plan: continue nightly CCPD follow electrolytes, volume status, and clearance replace K+ as needed (2) Septic shock: Code(s): A41.9 - Sepsis, unspecified organism; R65.21 - Severe sepsis with septic shock Status: Acute Assessment and Plan: clinical improvement noted with interventions to date BP better at this time WBC and CRP improving CT of abd/pelvis (on 07/24) noted -- stercoral proctitis playing a role? possible peritonitis from bowel translocation? GI recommendations noted urine culture with VRE blood cultures and PD fluid cultures negative to date repeat PD fluid cell count (07/29/22) has improved (3) Altered mental status: Code(s): R41.82 - Altered mental status, unspecified Status: Acute Assessment and Plan: significant improvement noted related to infection(?) recent head CT with left parietal subarachnoid and potentially intraparenchymal hemorrhage of the brain versus calcification Neurosurgery recommendations noted CT angiogram of brain results noted follow trend of mentation (4) Hyponatremia: Code(s): E87.1 - Hypo-osmolality and hyponatremia Status: Acute Assessment and Plan: due to dilution [fluid boluses and incomplete peritoneal dialysis (on 07/23 - 07/24)] and free water intake (ice chips) sodium improved s/p 3% saline x 2 and more aggressive dialysis however, still fluctuating follow trend (5) Pneumonia: Code(s): J18.9 - Pneumonia, unspecified organism Status: Acute Assessment and Plan: chest x-ray shows persistent infiltrates in the right lung on antibiotics on room air (6) Right flank pain: Code(s): R10.9 - Unspecified abdominal pain Status: Acute Assessment and Plan: extensive work-up evaluation to date has been 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 related to recent CT scan (on 07/24) findings (?) follow clinical symptoms (7) Anemia: Code(s): D64.9 - Anemia, unspecified Status: Chronic Assessment and Plan: due to ESRD and acute illness on Epogen suspect some Epogen resistance give high degree of inflammation follow H/H (8) Diabetes mellitus: Onset Date: ~1995 Qualifiers: Diabetes mellitus complication status: without complication Diabetes mellitus detention insulin use: without detention use Diabetes mellitus type: type 2 Qualified Code(s): E11.9 - Type 2 diabetes mellitus without complications Code(s): E11.9 - Type 2 diabetes mellitus without complications Status: Chronic Assessment and Plan: on accuchecks glycemic control per hospitalists Will continue to follow. Subjective Date/time seen: 08/02/22 11:49 Continues to tolerate peritoneal dialysis overnight without any issues or problems; mentation seems back to baseline at the time of my visit; eating and drinking relatively well and is quite happy that the NG ube has since been removed; family including her are quite happy with her progress to date. Exam Narrative: General: WD/WN female in NAD Heart: normal S1 and S2; no rub Lungs: clear bilaterally Abdomen: soft, nondistended, positive bowel sounds Extremities: no edema or cyanosis Skin: no nodules Objective Data Vital Signs Vital Signs: Vital Signs Temp Pulse Resp BP Pulse Ox 08/02/22 09:30 97.5 F L 110 H 20 88/52 L 08/02/22 06:00 96.8 F L 73 14 103/57 L 99 08/02/22 01:44 97.7 F 94 36 H 108/63 100 08/01/22 20:00 97.4 F L 90 33 H 124/69 100 08/01/22 18:28 97.7 F 96 17 109/54 L 100 08/01/22 14:45 97.0 F L 89 16 123/72 100 Intake/Output Intake/Output: Intake & Output 07/30/22 07/31/22 08/01/22 08/02/22 23:59 23:59 23:59 23:59 Intake Total 1300 3275 800 100
[2022-08-02 12:00] LABS: Glucose Point of Care 186 mg/dl (65-105)
--- NOTE | 2022-08-02 13:28 | PCNFU ---
Nutrition Follow-Up Complete: Inadequate Oral Intake as related to ab pain as evidenced by reported decrease intake. Goal:Adequate Intake of at least 75% of meals/supplements Pt current nutrition is Soft and bite sized, low fiber, Ensure compact BID. Nutrition recommendation: Continue with current plan of care. Last recorded weight is 80.9 kg. Bowel Motility: +BM 08/02 Labs Reviewed: hgb:8.1, HCt:26.8, Alb:2.3, NA:123, K:2.6, BUN:60, Cr:6, Glu:186 Meds Noted: protonix, miralax Skin: WNL Additional Notes: pt now upgraded to a soft and bite sized low fiber diet to start today. Agree with diet orders. Monitor intake, wt, labs. Follow up in 3 days.
--- NOTE | 2022-08-02 17:08 | PCOTNOTE ---
Began evaluation of pt. for occupational therapy services, unable to complete evaluation due to presence of femoral line. Pt. left with nursing while seated edge of bed.
[2022-08-02 17:23] LABS: Glucose Point of Care 142 mg/dl (65-105)
[2022-08-02] MEDS: NEOMYCIN/POLYMYXIN/BACITRACIN OINTMENT PACKET 1 PACKET (22:50)
[2022-08-03 00:48] LABS: Glucose Point of Care 251 mg/dl (65-105)
[2022-08-03 06:00] VITALS: BP 103/57; PULSE 96; RESP 16; TEMP 36.2; O2SAT 100
[2022-08-03 06:35] LABS: Basophils Absolute Auto 0.1 K/mm3 (0.0-0.1); Basophils Percent Auto 1.1 % (0.2-1.2); Eosinophils Absolute Auto 0.2 K/mm3 (0-0.3); Eosinophils Percent Auto 2.4 % (0-4.4); Hematocrit 27.4 % (37.0-47.0); Hemoglobin 8.3 g/dL (12.0-15.0); Immature Granulocyte Absolute 0.07 K/mm3 (0.00-0.031); Immature Granulocyte Percent A 0.9 % (0-0.5); Lymphocytes Absolute Auto 1.52 K/mm3 (0.9-3.2); Mean Corpuscular HGB Conc 30.3 g/dl (32-36); Mean Corpuscular Hemoglobin 31.3 pg (26-34); Mean Corpuscular Volume 103.4 fl (80-100); Monocytes Absolute Auto 0.6 K/mm3 (0.1-0.6); Monocytes Percent Auto 7.9 % (2.6-8.5); Neutrophils Absolute Auto 5.5 K/mm3 (1.3-6.7); Neutrophils Percent Auto 68.7 % (45.5-73.1); Nucleated Red Blood Cells Perc 0.4 % (0.0-0.2); Platelet Count Result 78 k/mm3 (150-375); Red Blood Count 2.65 M/mm3 (4.2-5.4); Red Cell Distribution Width 18.4 % (11.5-14.5)
[2022-08-03 06:54] LABS: Alanine Aminotransferase 9 U/L (6-35); Albumin Level 2.5 g/dL (3.5-5.1); Alkaline Phosphatase 94 U/L (38-126); Anion Gap 9 mmol/L (8-16); Aspartate Amino Transferase 16 U/L (14-36); Blood Urea Nitrogen 60 mg/dL (7-17); Calcium 8.2 mg/dL (8.4-10.2); Carbon Dioxide 24 mmol/L (22-30); Chloride 99 mmol/L (98-107); Estimated CRCL calculation 8 ml/min; Estimated Glomerular Filt Rate 6; Glucose 150 mg/dL (65-110); Potassium 3.4 mmol/L (3.4-5.0); Sodium 132 mmol/L (137-145)
[2022-08-03 07:22] LABS: Anisocytosis 1+ (NORMAL); Hypochromasia 1+ (NORMAL); Macrocytosis 1+ (NORMAL); Platelet Estimate Decreased (Adequate); Schistocytes None Seen (NORMAL); Stomatocytes 1+ (NORMAL)
[2022-08-03] MEDS: allopurinoL 150 MG TABLET PO (08:15)
[2022-08-03] MEDS: PANTOPRAZOLE SODIUM IV 40 MG VIAL IV PUSH (08:15)
[2022-08-03] MEDS: LIDOCAINE 5% PATCH 2 PATCH TOPICAL (08:15)
[2022-08-03] MEDS: MIDODRINE HCL 10 MG TABLET PO ×3 (08:15→16:03)
[2022-08-03] MEDS: GABAPENTIN 100 MG CAPSULE PO ×3 (08:15→16:03)
[2022-08-03] MEDS: polyethylene glycoL 3350 17 GM POWD.PACK PO (08:16)
[2022-08-03 08:20] LABS: Glucose Point of Care 170 mg/dl (65-105)
[2022-08-03] MEDS: INSULIN GLARGINE (*BKC) 100 UNITS/ML 15 UNITS SUB-Q (08:25)
[2022-08-03] MEDS: FLUTICASONE PROPIONATE 0.05% NA SPR 16 GM BTL (*BKC) 1 SPRAY NASAL ×2 (09:24→16:02)
[2022-08-03 10:14] VITALS: BP 96/44; PULSE 100; RESP 20; TEMP 36.6
[2022-08-03 11:44] LABS: Glucose Point of Care 242 mg/dl (65-105)
--- NOTE | 2022-08-03 12:15 | PM.PNNEP ---
Progress Note: A&P Assessment and Plan (1) End stage renal disease: Code(s): N18.6 - End stage renal disease Status: Chronic Assessment and Plan: continue nightly CCPD follow electrolytes, volume status, and clearance replace K+ as needed (2) Septic shock: Code(s): A41.9 - Sepsis, unspecified organism; R65.21 - Severe sepsis with septic shock Status: Acute Assessment and Plan: clinical improvement noted with interventions to date BP better at this time WBC and CRP improving CT of abd/pelvis (on 07/24) noted -- stercoral proctitis playing a role? possible peritonitis from bowel translocation? GI recommendations noted urine culture with VRE blood cultures and PD fluid cultures negative to date repeat PD fluid cell count (07/29/22) has improved (3) Altered mental status: Code(s): R41.82 - Altered mental status, unspecified Status: Acute Assessment and Plan: significant improvement noted related to infection(?) recent head CT with left parietal subarachnoid and potentially intraparenchymal hemorrhage of the brain versus calcification Neurosurgery recommendations noted CT angiogram of brain results noted follow trend of mentation (4) Hyponatremia: Code(s): E87.1 - Hypo-osmolality and hyponatremia Status: Acute Assessment and Plan: improving due to dilution [fluid boluses and incomplete peritoneal dialysis (on 07/23 - 07/24)] and free water intake (ice chips) sodium better s/p 3% saline x 2 and more aggressive dialysis follow trend (5) Pneumonia: Code(s): J18.9 - Pneumonia, unspecified organism Status: Acute Assessment and Plan: chest x-ray shows persistent infiltrates in the right lung on antibiotics on room air (6) Anemia: Code(s): D64.9 - Anemia, unspecified Status: Chronic Assessment and Plan: due to ESRD and acute illness on Epogen suspect some Epogen resistance give high degree of inflammation follow H/H (7) Diabetes mellitus: Onset Date: ~1995 Qualifiers: Diabetes mellitus complication status: without complication Diabetes mellitus 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 Subjective Date/time seen: 08/03/22 12:15 Tolerated peritoneal dialysis treatment overnight without any issues or problems; continues to make slow and steady improvement in general; working with therapy as tolerated; eating and drinking better as well. Exam Narrative: General: WD/WN female in NAD Heart: normal S1 and S2; no rub Lungs: clear bilaterally Abdomen: soft, nondistended, positive bowel sounds Extremities: no edema or cyanosis Skin: warm and dry Objective Data Vital Signs Vital Signs: Vital Signs Temp Pulse Resp BP Pulse Ox O2 Del Method 08/03/22 12:00 96.8 F L 96 10 L 104/57 L 100 08/03/22 10:47 Room Air 08/03/22 10:14 97.8 F 100 20 96/44 L 08/03/22 09:05 Room Air 08/03/22 08:00 Room Air 08/03/22 06:00 97.1 F L 96 16 103/57 L 100 08/02/22 20:00 100 Room Air 08/02/22 22:00 96.1 F L 94 23 H 108/61 100 08/02/22 17:25 96.8 F L 89 20 112/46 L 100 Intake/Output Intake/Output: Intake & Output 07/31/22 08/01/22 08/02/22 08/03/22 23:59 23:59 23:59 23:59 Intake Total 3275 800 720 410 Output Total 1513 1721 2009 243 Balance 1762 -921 -1290 -2022 Meds/Results Medications: Active Medications Generic Name Dose Route Start Last Admin Trade Name Freq PRN Reason Stop Dose Admin Acetaminophen 650 mg 07/24/22 08:52 08/01/22 17:38 Acetaminophen 32
--- NOTE | 2022-08-03 12:15 | P.PNNP_ITS ---
Progress Note: A&P Assessment and Plan (1) End stage renal disease: Code(s): N18.6 - End stage renal disease Status: Chronic Assessment and Plan: * continue nightly CCPD * follow electrolytes, volume status, and clearance * replace K+ as needed (2) Septic shock: Code(s): A41.9 - Sepsis, unspecified organism; R65.21 - Severe sepsis with septic shock Status: Acute Assessment and Plan: * clinical improvement noted with interventions to date * BP better at this time * WBC and CRP improving * CT of abd/pelvis (on 07/24) noted -- stercoral proctitis playing a role? * possible peritonitis from bowel translocation? * GI recommendations noted * urine culture with VRE * blood cultures and PD fluid cultures negative to date * repeat PD fluid cell count (07/29/22) has improved (3) Altered mental status: Code(s): R41.82 - Altered mental status, unspecified Status: Acute Assessment and Plan: * significant improvement noted * related to infection(?) * recent head CT with left parietal subarachnoid and potentially intraparenchymal hemorrhage of the brain versus calcification * Neurosurgery recommendations noted * CT angiogram of brain results noted * follow trend of mentation (4) Hyponatremia: Code(s): E87.1 - Hypo-osmolality and hyponatremia Status: Acute Assessment and Plan: * improving * due to dilution [fluid boluses and incomplete peritoneal dialysis (on 07/23 - 07/24)] and free water intake (ice chips) * sodium better s/p 3% saline x 2 and more aggressive dialysis * follow trend (5) Pneumonia: Code(s): J18.9 - Pneumonia, unspecified organism Status: Acute Assessment and Plan: * chest x-ray shows persistent infiltrates in the right lung * on antibiotics * on room air (6) Anemia: Code(s): D64.9 - Anemia, unspecified Status: Chronic Assessment and Plan: * due to ESRD and acute illness * on Epogen * suspect some Epogen resistance give high degree of inflammation * follow H/H (7) Diabetes mellitus: Onset Date: ~1995 Qualifiers: Diabetes mellitus complication status: without complication Diabetes mellitus mcfp insulin use: without mcfp use Diabetes mellitus type: type 2 Qualified Code(s): E11.9 - Type 2 diabetes mellitus without complications Code(s): E11.9 - Type 2 diabetes mellitus without complications Status: Chronic Assessment and Plan: * on accuchecks * glycemic control per hospitalists Will continue to follow. Subjective Date/time seen: 08/03/22 12:15 Tolerated peritoneal dialysis treatment overnight without any issues or problems; continues to make slow and steady improvement in general; working with therapy as tolerated; eating and drinking better as well. Exam Narrative: General: WD/WN female in NAD Heart: normal S1 and S2; no rub Lungs: clear bilaterally Abdomen: soft, nondistended, positive bowel sounds Extremities: no edema or cyanosis Skin: warm and dry Objective Data Vital Signs Vital Signs: Vital Signs Temp Pulse Resp BP Pulse Ox O2 Del Method 08/03/22 12:00 96.8 F L 96 10 L 104/57 L 100 08/03/22 10:47 Room Air 08/03/22 10:14 97.8 F 100 20 96/44 L 08/03/22 09:05 Room Air
--- NOTE | 2022-08-03 12:53 | PM.IMPN ---
Progress Note: A&P Assessment and Plan (1) Septic shock: Code(s): A41.9 - Sepsis, unspecified organism; R65.21 - Severe sepsis with septic shock Status: Acute Assessment and Plan: CXR shows persistent infiltrates in right mid and lower lung which may be pneumonia 07/20, repeat 07/29 pending BCx 07/20 negative Peritoneal Cx 07/21 NGTD Left hip Cx 07/21 NGTD UCx 07/22 growing 100K CFU VRE, started on linezolid 07/24 Peritoneal Fluid 07/24: WBC 2675 with 61% neutrophils, on primaxin + flagyl Peritoneal Cx 07/24 NGTD; No fungal elements. She was started on Aztreonam and Vanco. Levophed infusion started on admission and was able to be weaned off 07/21; also treated with IV fluids and Albumin. Solu-Cortef started but has since been stopped. Midodrine added 07/21. Concern for peritonitis given exam findings on 07/24. BP soft and WBC climbing. Abx adjusted to Primaxin, Flagyl and vanco. CT A/P scan 07/24 showing large amount of retained fecal material in the rectum which is distended. Mild perirectal fluid/inflammation extending into the presacral space. Likely stercoral proctitis, GI on board. 07/24: Urine cx came back VRE, started on linezolid, vanc d/c. Leuk improving on linezolid, primaxin and flagyl 08/01: Discontinue linezolid to complete 7 day course for VRE UTI, will discontinue Primaxin and Flagyl tomorrow to complete a 10 day course 08/02: D/c abx today after 10 day course, monitor closely off abx to ensure complete resolution of leukocytosis 08/03: Off abx. WBC remains normal. mental status slowly improving. Placement being arranged. (2) Peritonitis: Code(s): K65.9 - Peritonitis, unspecified Status: Acute Assessment and Plan: Peritoneal fluid 07/21 showing no WBC/1 RBC. Cx NGTD. Peritonitis was ruled out but now having increasing pain so testing repeated. Peritoneal fluid 07/24 showing 500RBC/2675WBC with 61% neutrophils c/w peritonitis. CT Abd/pelvis as above. Rectal bleeding felt related to probable stercoral ulcer, now resolved. Repeat cultures NGTD Completed 10 day course abx as above (3) Constipation: Code(s): K59.00 - Constipation, unspecified Status: Acute Assessment and Plan: CT scan as mentioned above. Now having rectal bleeding felt related to stercoral ulcer. Soap suds enema given and Miralax started. Consider microperforation given the perirectal inflammation but unclear since she does have PD. GI following. Rectal bleeding resolved. Normal BMs now. Continue miralax daily (4) Hyponatremia: Code(s): E87.1 - Hypo-osmolality and hyponatremia Status: Acute Assessment and Plan: Appreciate nephrology consultation, corrected with dialysis (5) Trochanteric bursitis, left hip: Code(s): M70.62 - Trochanteric bursitis, left hip Status: Acute Assessment and Plan: CT scan of the hip showed severe left trochanteric bursitis with fluid collection measuring 8.4 x 2.4 x 12.0 cm. Close to 200 mL of fluid was removed on 07/21, pigtail catheter left in place. Culture sent and there is no growth. Discussed with orthopedics. Fluid collection may be related to to her peritoneal dialysis. CT showed minimal residual fluid collection, no pain s/p pulling drain. (6) Pneumonia: Code(s): J18.9 - Pneumonia, unspecified organism Status: Acute Assessment and Plan: 07/20 CXR showing persistent right mid and lower lung field infiltrates. Repeat pending today, 07/29 Stable on RA Repeat chest x-ray unchanged from initial, suspect this is scarring and not any sign of pneumonia (7) Hip pain: Code(s): M25.559 - Pain in unspecified hip Status: Acute Assessment and Plan: Hip CT showing moderate left hip OA and severe left trochanteric bursitis with large fluid collection at 8.4x12cm. Drained 07/21, see above (8) Diabetes mellitus: Onset Date: ~1995 Qualifiers: Diabetes mellitus t
[2022-08-03 14:00] VITALS: BP 104/57; PULSE 96; RESP 10; TEMP 36; O2SAT 100
[2022-08-03 16:37] LABS: Glucose Point of Care 169 mg/dl (65-105)
[2022-08-03 20:54] VITALS: BP 91/39; PULSE 98; RESP 20; TEMP 36.3; O2SAT 98
[2022-08-03 21:29] LABS: Glucose Point of Care 247 mg/dl (65-105)
[2022-08-03 21:39] VITALS: BP 91/39; PULSE 89; RESP 18; TEMP 36.5; O2SAT 98
[2022-08-04] MEDS: LEVOTHYROXINE SODIUM 12.5 MCG TABLET PO (05:43)
[2022-08-04 06:00] VITALS: BP 137/68; PULSE 88; RESP 16; TEMP 36.2; O2SAT 100
[2022-08-04 06:57] LABS: Basophils Absolute Auto 0.1 K/mm3 (0.0-0.1); Eosinophils Absolute Auto 0.2 K/mm3 (0-0.3); Eosinophils Percent Auto 2.4 % (0-4.4); Hematocrit 30.2 % (37.0-47.0); Hemoglobin 8.8 g/dL (12.0-15.0); Immature Granulocyte Absolute 0.06 K/mm3 (0.00-0.031); Immature Granulocyte Percent A 0.6 % (0-0.5); Immature Platelet Fraction Pct 5.2 % (0.9-11.2); Lymphocytes Absolute Auto 1.02 K/mm3 (0.9-3.2); Mean Corpuscular HGB Conc 29.1 g/dl (32-36); Mean Corpuscular Volume 106.3 fl (80-100); Mean Platelet Volume 11.6 fl (7.4-10.4); Monocytes Absolute Auto 0.8 K/mm3 (0.1-0.6); Monocytes Percent Auto 8.5 % (2.6-8.5); Neutrophils Absolute Auto 7.1 K/mm3 (1.3-6.7); Neutrophils Percent Auto 76.5 % (45.5-73.1); Nucleated Red Blood Cells Perc 0.2 % (0.0-0.2); Platelet Count Result 66 k/mm3 (150-375); Red Blood Count 2.84 M/mm3 (4.2-5.4); Red Cell Distribution Width 18.4 % (11.5-14.5); White Blood Count 9.3 K/mm3 (4.5-10.0)
[2022-08-04 07:18] LABS: Alanine Aminotransferase 10 U/L (6-35); Albumin Level 2.8 g/dL (3.5-5.1); Alkaline Phosphatase 128 U/L (38-126); Anion Gap 8 mmol/L (8-16); Aspartate Amino Transferase 18 U/L (14-36); Blood Urea Nitrogen 59 mg/dL (7-17); Calcium 8.6 mg/dL (8.4-10.2); Carbon Dioxide 25 mmol/L (22-30); Chloride 95 mmol/L (98-107); Glucose 275 mg/dL (65-110); Potassium 2.9 mmol/L (3.4-5.0); Sodium 128 mmol/L (137-145)
[2022-08-04 07:20] LABS: Estimated CRCL calculation 8 ml/min; Estimated Glomerular Filt Rate 6
[2022-08-04 07:23] VITALS: BP 91/39; PULSE 89; RESP 18; TEMP 36.5
[2022-08-04 08:05] LABS: Platelet Estimate Decreased (Adequate)
[2022-08-04 08:06] LABS: Anisocytosis 2+ (NORMAL); Poikilocytosis 1+ (NORMAL); Schistocytes 1+ (NORMAL)
[2022-08-04 08:07] LABS: Atypical Lymphocytes Present; Macrocytosis 1+ (NORMAL)
[2022-08-04 08:27] LABS: Glucose Point of Care 244 mg/dl (65-105)
[2022-08-04] MEDS: GABAPENTIN 100 MG CAPSULE PO ×3 (08:41→17:04)
[2022-08-04] MEDS: polyethylene glycoL 3350 17 GM POWD.PACK PO (08:41)
[2022-08-04] MEDS: FLUTICASONE PROPIONATE 0.05% NA SPR 16 GM BTL (*BKC) 1 SPRAY NASAL ×2 (08:41→17:04)
[2022-08-04] MEDS: POTASSIUM CHLORIDE 20 MEQ TABLET 40 MEQ PO (08:41)
[2022-08-04] MEDS: allopurinoL 150 MG TABLET PO (08:42)
[2022-08-04] MEDS: MIDODRINE HCL 10 MG TABLET PO ×3 (08:42→17:04)
[2022-08-04] MEDS: CHOLECALCIFEROL 1,000 UNITS TABLET 2000 UNITS PO ×2 (08:43→17:04)
[2022-08-04] MEDS: PANTOPRAZOLE 40 MG TABLET PO (08:43)
[2022-08-04] MEDS: VITAMIN B CMPLX/VIT C/FOLIC AC 1 CAPSULE 1 CAP PO (08:43)
[2022-08-04] MEDS: INSULIN ASPART (*BKC) 100 UNITS/ML SUB-Q ×3 (08:45→17:03)
[2022-08-04] MEDS: INSULIN GLARGINE (*BKC) 100 UNITS/ML 15 UNITS SUB-Q (08:48)
[2022-08-04 11:43] LABS: Glucose Point of Care 289 mg/dl (65-105)
[2022-08-04] MEDS: POTASSIUM CHLORIDE 20 MEQ TABLET PO (13:15)
[2022-08-04] MEDS: EPOETIN ALFA-EPBX 10,000 UNITS/ML VIAL 10000 UNITS SUB-Q (13:17)
[2022-08-04 14:00] VITALS: BP 114/53; PULSE 102; RESP 16; TEMP 36.9; O2SAT 100
--- NOTE | 2022-08-04 14:41 | P.PNNP_ITS ---
Progress Note: A&P Assessment and Plan (1) End stage renal disease: Code(s): N18.6 - End stage renal disease Status: Chronic Assessment and Plan: * continue nightly CCPD * follow electrolytes, volume status, and clearance * replace K+ as needed (2) Septic shock: Code(s): A41.9 - Sepsis, unspecified organism; R65.21 - Severe sepsis with septic shock Status: Acute Assessment and Plan: * clinical improvement noted with interventions to date * BP better at this time * WBC and CRP improving * CT of abd/pelvis (on 07/24) noted -- stercoral proctitis playing a role? * possible peritonitis from bowel translocation? * GI recommendations noted * urine culture with VRE * blood cultures and PD fluid cultures negative to date * repeat PD fluid cell count (07/29/22) has improved * completed course of antibiotic therapy (3) Altered mental status: Code(s): R41.82 - Altered mental status, unspecified Status: Acute Assessment and Plan: * significant improvement noted * related to infection(?) * recent head CT with left parietal subarachnoid and potentially intraparenchymal hemorrhage of the brain versus calcification * Neurosurgery recommendations noted * CT angiogram of brain results noted * follow trend of mentation (4) Hyponatremia: Code(s): E87.1 - Hypo-osmolality and hyponatremia Status: Acute Assessment and Plan: * improving * due to dilution [fluid boluses and incomplete peritoneal dialysis (on 07/23 - 07/24)] and free water intake (ice chips) * sodium better s/p 3% saline x 2 and more aggressive dialysis * follow trend (5) Pneumonia: Code(s): J18.9 - Pneumonia, unspecified organism Status: Acute Assessment and Plan: * chest x-ray shows persistent infiltrates in the right lung * completed course of antibiotics * on room air (6) Anemia: Code(s): D64.9 - Anemia, unspecified Status: Chronic Assessment and Plan: * due to ESRD and acute illness * on Epogen * suspect some Epogen resistance give high degree of inflammation * follow H/H (7) Diabetes mellitus: Onset Date: ~1995 Qualifiers: Diabetes mellitus complication status: without complication 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 Subjective Date/time seen: 08/04/22 14:41 Continues to tolerated nightly perioneal dialysis treatments reasonably well; me ntation continues to improve each day; working with PT/OT as tolerated given her overall deconditioned status; eating and drinking fairly well; family at bedside and we discussed the situation. Exam Narrative: General: WD/WN female in NAD Heart: normal S1 and S2; no rub Lungs: clear bilaterally Abdomen: soft, nondistended, positive bowel sounds Extremities: no edema or cyanosis Skin: warm and dry Objective Data Vital Signs Vital Signs: Vital Signs Temp Pulse Resp BP Pulse Ox O2 Del Method 08/04/22 08:00 Room Air 08/04/22 06:00 97.2 F L 88 16 137/68 100
--- NOTE | 2022-08-04 14:41 | PM.PNNEP ---
Progress Note: A&P Assessment and Plan (1) End stage renal disease: Code(s): N18.6 - End stage renal disease Status: Chronic Assessment and Plan: continue nightly CCPD follow electrolytes, volume status, and clearance replace K+ as needed (2) Septic shock: Code(s): A41.9 - Sepsis, unspecified organism; R65.21 - Severe sepsis with septic shock Status: Acute Assessment and Plan: clinical improvement noted with interventions to date BP better at this time WBC and CRP improving CT of abd/pelvis (on 07/24) noted -- stercoral proctitis playing a role? possible peritonitis from bowel translocation? GI recommendations noted urine culture with VRE blood cultures and PD fluid cultures negative to date repeat PD fluid cell count (07/29/22) has improved completed course of antibiotic therapy (3) Altered mental status: Code(s): R41.82 - Altered mental status, unspecified Status: Acute Assessment and Plan: significant improvement noted related to infection(?) recent head CT with left parietal subarachnoid and potentially intraparenchymal hemorrhage of the brain versus calcification Neurosurgery recommendations noted CT angiogram of brain results noted follow trend of mentation (4) Hyponatremia: Code(s): E87.1 - Hypo-osmolality and hyponatremia Status: Acute Assessment and Plan: improving due to dilution [fluid boluses and incomplete peritoneal dialysis (on 07/23 - 07/24)] and free water intake (ice chips) sodium better s/p 3% saline x 2 and more aggressive dialysis follow trend (5) Pneumonia: Code(s): J18.9 - Pneumonia, unspecified organism Status: Acute Assessment and Plan: chest x-ray shows persistent infiltrates in the right lung completed course of antibiotics on room air (6) Anemia: Code(s): D64.9 - Anemia, unspecified Status: Chronic Assessment and Plan: due to ESRD and acute illness on Epogen suspect some Epogen resistance give high degree of inflammation follow H/H (7) Diabetes mellitus: Onset Date: ~1995 Qualifiers: Diabetes mellitus complication status: without complication Diabetes mellitus retirement insulin use: without roasterman use Diabetes mellitus type: type 2 Qualified Code(s): E11.9 - Type 2 diabetes mellitus without complications Code(s): E11.9 - Type 2 diabetes mellitus without complications Status: Chronic Assessment and Plan: on accuchecks glycemic control per hospitalists Will continue to follow. Subjective Date/time seen: 08/04/22 14:41 Continues to tolerated nightly perioneal dialysis treatments reasonably well; mentation continues to improve each day; working with PT/OT as tolerated given her overall deconditioned status; eating and drinking fairly well; family at bedside and we discussed the situation. Exam Narrative: General: WD/WN female in NAD Heart: normal S1 and S2; no rub Lungs: clear bilaterally Abdomen: soft, nondistended, positive bowel sounds Extremities: no edema or cyanosis Skin: warm and dry Objective Data Vital Signs Vital Signs: Vital Signs Temp Pulse Resp BP Pulse Ox O2 Del Method 08/04/22 08:00 Room Air 08/04/22 06:00 97.2 F L 88 16 137/68 100 08/04/22 07:23 97.7 F 89 18 91/39 L 08/03/22 21:39 97.7 F 89 18 91/39 L 98 08/03/22 20:54 97.3 F L 98 20 91/39 L 98 Room Air Intake/Output Intake/Output: Intake & Output 08/01/22 08/02/22 08/03/22 08/04/22 23:59 23:59 23:59 23:59 Intake Total 800 720 830 590 Output Total 2201 5116 5384 [id number] [place] [id number] [id number] [id number] [phone] Meds/Results Medications: Active Medications Generic Name Dose Route Start Last Admin Trade Name Freq PRN Reason Stop Dose Admin Acetaminophen 650 mg 07/24/22 08:52 08/01/22 17:38 Acetaminophen 325 Mg Tablet PO 650 mg Q6H
[2022-08-04 15:35] VITALS: BP 114/53; PULSE 102; RESP 16; TEMP 36.9
--- NOTE | 2022-08-04 16:27 | PM.IMPN ---
Progress Note: A&P Assessment and Plan (1) Septic shock: Code(s): A41.9 - Sepsis, unspecified organism; R65.21 - Severe sepsis with septic shock Status: Acute Assessment and Plan: CXR shows persistent infiltrates in right mid and lower lung which may be pneumonia 07/20, repeat 07/29 pending BCx 07/20 negative Peritoneal Cx 07/21 NGTD Left hip Cx 07/21 NGTD UCx 07/22 growing 100K CFU VRE, started on linezolid 07/24 Peritoneal Fluid 07/24: WBC 2675 with 61% neutrophils, on primaxin + flagyl Peritoneal Cx 07/24 NGTD; No fungal elements. She was started on Aztreonam and Vanco. Levophed infusion started on admission and was able to be weaned off 07/21; also treated with IV fluids and Albumin. Solu-Cortef started but has since been stopped. Midodrine added 07/21. Concern for peritonitis given exam findings on 07/24. BP soft and WBC climbing. Abx adjusted to Primaxin, Flagyl and vanco. CT A/P scan 07/24 showing large amount of retained fecal material in the rectum which is distended. Mild perirectal fluid/inflammation extending into the presacral space. Likely stercoral proctitis, GI on board. 07/24: Urine cx came back VRE, started on linezolid, vanc d/c. Leuk improving on linezolid, primaxin and flagyl 08/01: Discontinue linezolid to complete 7 day course for VRE UTI, will discontinue Primaxin and Flagyl tomorrow to complete a 10 day course 08/02: D/c abx today after 10 day course, monitor closely off abx to ensure complete resolution of leukocytosis 08/03: Off abx. WBC remains normal. mental status slowly improving. Placement being arranged. 08/04: Sepsis resolved. Having difficulty finding a SNF location to accept patient due to her PD requirements. She made need to have tunneled catheter placed for HD for her to be accepted at [facility]. Nephrology managing (2) Peritonitis: Code(s): K65.9 - Peritonitis, unspecified Status: Acute Assessment and Plan: Peritoneal fluid 07/21 showing no WBC/1 RBC. Cx NGTD. Peritonitis was ruled out but now having increasing pain so testing repeated. Peritoneal fluid 07/24 showing 500RBC/2675WBC with 61% neutrophils c/w peritonitis. CT Abd/pelvis as above. Rectal bleeding felt related to probable stercoral ulcer, now resolved. Repeat cultures NGTD Completed 10 day course abx as above, resolved. (3) Constipation: Code(s): K59.00 - Constipation, unspecified Status: Acute Assessment and Plan: CT scan as mentioned above. Now having rectal bleeding felt related to stercoral ulcer. Soap suds enema given and Miralax started. Consider microperforation given the perirectal inflammation but unclear since she does have PD. GI following. Rectal bleeding resolved. Normal BMs now. Having diarrhea now. Miralax on hold but resume once diarrhea resolved probably at lower dose. (4) Hyponatremia: Code(s): E87.1 - Hypo-osmolality and hyponatremia Status: Acute Assessment and Plan: Appreciate nephrology consultation. Mange with dialysis (5) Trochanteric bursitis, left hip: Code(s): M70.62 - Trochanteric bursitis, left hip Status: Acute Assessment and Plan: CT scan of the hip showed severe left trochanteric bursitis with fluid collection measuring 8.4 x 2.4 x 12.0 cm. Close to 200 mL of fluid was removed on 07/21, pigtail catheter left in place. Culture sent and there is no growth. Discussed with orthopedics. Fluid collection may be related to to her peritoneal dialysis. CT showed minimal residual fluid collection, no pain s/p pulling drain. (6) Pneumonia: Code(s): J18.9 - Pneumonia, unspecified organism Status: Acute Assessment and Plan: 07/20 CXR showing persistent right mid and lower lung field infiltrates. Repeat pending today, 07/29 Stable on RA Repeat chest x-ray unchanged from initial, suspect this is scarring and not any sign of pneumonia Resolved (7) Hip pain: Code(s): M25.559 - Pain in un
[2022-08-04 16:28] LABS: Glucose Point of Care 217 mg/dl (65-105)
[2022-08-04 21:18] LABS: Glucose Point of Care 215 mg/dl (65-105)
[2022-08-04 22:00] VITALS: BP 112/54; PULSE 107; RESP 24; TEMP 36.4; O2SAT 100
[2022-08-05] VITALS (7 sets, daily range): BP systolic 99–130; BP diastolic 54–80; PULSE 85–106; RESP 17–24; TEMP 36–37.2; O2SAT 94–100
[2022-08-05 06:27] LABS: Basophils Absolute Auto 0.1 K/mm3 (0.0-0.1); Basophils Percent Auto 1.2 % (0.2-1.2); Eosinophils Absolute Auto 0.3 K/mm3 (0-0.3); Eosinophils Percent Auto 3.7 % (0-4.4); Hematocrit 25.9 % (37.0-47.0); Hemoglobin 7.7 g/dL (12.0-15.0); Immature Granulocyte Absolute 0.07 K/mm3 (0.00-0.031); Immature Granulocyte Percent A 0.8 % (0-0.5); Lymphocytes Absolute Auto 1.64 K/mm3 (0.9-3.2); Lymphocytes Percent Auto 17.8 % (18.3-44.2); Mean Corpuscular HGB Conc 29.7 g/dl (32-36); Mean Corpuscular Hemoglobin 30.8 pg (26-34); Mean Corpuscular Volume 103.6 fl (80-100); Mean Platelet Volume 11.1 fl (7.4-10.4); Monocytes Percent Auto 10.7 % (2.6-8.5); Neutrophils Absolute Auto 6.1 K/mm3 (1.3-6.7); Neutrophils Percent Auto 65.8 % (45.5-73.1); Nucleated Red Blood Cells Perc 0.3 % (0.0-0.2); Platelet Count Result 53 k/mm3 (150-375); Red Cell Distribution Width 18.4 % (11.5-14.5); White Blood Count 9.2 K/mm3 (4.5-10.0)
[2022-08-05] MEDS: LEVOTHYROXINE SODIUM 12.5 MCG TABLET PO (06:32)
[2022-08-05 06:37] LABS: Alanine Aminotransferase 9 U/L (6-35); Albumin Level 2.4 g/dL (3.5-5.1); Alkaline Phosphatase 114 U/L (38-126); Anion Gap 6 mmol/L (8-16); Aspartate Amino Transferase 15 U/L (14-36); Bilirubin,Total 0.9 mg/dL (0.2-1.3); Blood Urea Nitrogen 53 mg/dL (7-17); Calcium 8.5 mg/dL (8.4-10.2); Carbon Dioxide 26 mmol/L (22-30); Chloride 98 mmol/L (98-107); Estimated CRCL calculation 7 ml/min; Estimated Glomerular Filt Rate 6; Glucose 153 mg/dL (65-110); Magnesium 2.4 mg/dL (1.6-2.3); Potassium 3.3 mmol/L (3.4-5.0); Sodium 130 mmol/L (137-145)
[2022-08-05 07:12] LABS: Anisocytosis 1+ (NORMAL); Hypochromasia 1+ (NORMAL); Platelet Estimate Decreased (Adequate); Poikilocytosis 1+ (NORMAL)
[2022-08-05 07:13] LABS: Burr Cells 1+ (NORMAL); Schistocytes Rare (NORMAL)
[2022-08-05 07:14] LABS: Macrocytosis 1+ (NORMAL); Target Cells 1+ (NORMAL)
--- NOTE | 2022-08-05 08:26 | PC.NURSE ---
Care of pt from 1899- 729. Alert to self and year.. took pt some time to answer hospital Pt up until watching tv. Uncooperative with change of position. Needs to instructed to use IS, pt will not perform on own. Skin jaundice, , ecchymosis , fragile, obese- abdomen. PD connected in room when this nurse started shift. SCD applied. Refused phlebotomy draw, this nurse convinced pt to get draw. Incontinent of liquid stools -pooling in between legs - pt unaware . Monitor closely
[2022-08-05 08:27] LABS: Glucose Point of Care 150 mg/dl (65-105)
[2022-08-05] MEDS: MIDODRINE HCL 10 MG TABLET PO ×3 (08:59→17:21)
[2022-08-05] MEDS: VITAMIN B CMPLX/VIT C/FOLIC AC 1 CAPSULE 1 CAP PO (08:59)
[2022-08-05] MEDS: GABAPENTIN 100 MG CAPSULE PO ×3 (08:59→17:21)
[2022-08-05] MEDS: CHOLECALCIFEROL 1,000 UNITS TABLET 2000 UNITS PO ×2 (08:59→17:20)
[2022-08-05] MEDS: allopurinoL 150 MG TABLET PO (08:59)
[2022-08-05] MEDS: PANTOPRAZOLE 40 MG TABLET PO (08:59)
[2022-08-05] MEDS: FLUTICASONE PROPIONATE 0.05% NA SPR 16 GM BTL (*BKC) 1 SPRAY NASAL (08:59)
[2022-08-05] MEDS: INSULIN GLARGINE (*BKC) 100 UNITS/ML 15 UNITS SUB-Q (09:04)
--- NOTE | 2022-08-05 11:52 | PCNFU ---
Nutrition Follow-Up Complete: Inadequate Oral Intake as related to ab pain as evidenced by reported decrease intake. Goal: Adequate Intake of at least 75% of meals/supplements - Progressing to goal. Continue same goal Pt current nutrition is Regular diet. Intakes 10-50%. Improving. Ensure Compact ordered BID for additional 220 kcals and 9 g protein each. Nutrition recommendation: Continue with current diet order and supplements. Agree with orders. Last recorded weight is 74.2 kg. Bowel Motility: +9 BMs yesterday 08/04/22. +4 BMs today 08/05/22 Labs Reviewed: Alb 2.4, Na 130, K+ 3.3, GFR 6, BUN 53, Cre 7.3. Glu 215 Meds Noted: Miralax, protonix, zofran, synthroid Skin: No pressure injuries Additional Notes: Tolerating intake. Had multiple bowel movements today and yesterday. May need tunneled catheter for HD before discharge per the notes. RD will monitor every 5 days.
[2022-08-05 12:03] LABS: Glucose Point of Care 265 mg/dl (65-105)
--- NOTE | 2022-08-05 12:13 | P.PNNP_ITS ---
Progress Note: A&P Assessment and Plan (1) End stage renal disease: Code(s): N18.6 - End stage renal disease Status: Chronic Assessment and Plan: * continue nightly CCPD * follow electrolytes, volume status, and clearance * replace K+ as needed * given limited facilities with regard to SNF/Rehab that can do peritoneal dialysis, may have to consider transitioning to temporary HD * unfortunately, in the past, she has not very well with in-center hemodialysis (2) Septic shock: Code(s): A41.9 - Sepsis, unspecified organism; R65.21 - Severe sepsis with septic shock Status: Acute Assessment and Plan: * resolving * clinical improvement noted with interventions to date * BP better at this time (on midodrine) * WBC and CRP improving * CT of abd/pelvis (on 07/24) noted -- stercoral proctitis playing a role? * possible peritonitis from bowel translocation? * GI recommendations noted * urine culture with VRE * blood cultures and PD fluid cultures negative to date * repeat PD fluid cell count (07/29/22) has improved * completed course of antibiotic therapy (3) Altered mental status: Code(s): R41.82 - Altered mental status, unspecified Status: Acute Assessment and Plan: * significant improvement noted * related to infection(?) * recent head CT with left parietal subarachnoid and potentially intraparenchymal hemorrhage of the brain versus calcification * Neurosurgery recommendations noted * CT angiogram of brain results noted * follow trend of mentation (4) Hyponatremia: Code(s): E87.1 - Hypo-osmolality and hyponatremia Status: Acute Assessment and Plan: * improving * due to dilution [PRN fluid boluses and incomplete peritoneal dialysis (on 07/23 - 07/24)] and increased free water intake (ice chips) over the last few weeks * sodium better s/p 3% saline x 2 and more aggressive dialysis * follow trend (5) Pneumonia: Code(s): J18.9 - Pneumonia, unspecified organism Status: Acute Assessment and Plan: * chest x-ray shows persistent infiltrates in the right lung * completed course of antibiotics * on room air (6) Anemia: Code(s): D64.9 - Anemia, unspecified Status: Chronic Assessment and Plan: * due to ESRD and acute illness * on Epogen * suspect some Epogen resistance give high degree of inflammation * follow H/H (7) Diabetes mellitus: Onset Date: ~1995 Qualifiers: Diabetes mellitus complication status: without complication Diabetes mellitus mcfp insulin use: without mcfp use Diabetes mellitus type: type 2 Qualified Code(s): E11.9 - Type 2 diabetes mellitus without complications Code(s): E11.9 - Type 2 diabetes mellitus without complications Status: Chronic Assessment and Plan: * on accuchecks * glycemic control per hospitalists Will continue to follow. Subjective Date/time seen: 08/05/22 12:13 Tolerated peritoneal dialysis treatment overnight without any issues or problems; eating and drinking reasonably well; working with PT/OT as tolerated although apparently having issues with dizziness with ambulation/standing at times; no apparent distress voiced; mentation seems close to baseline at this time. Exam Narrative: General: WD/WN female in NAD Heart: normal S1 and S2; no rub Lungs: clear bilaterally Abdomen: soft, nondistended, positive bowel sounds Extremities: no edema or cyanosis
--- NOTE | 2022-08-05 12:13 | PM.PNNEP ---
Progress Note: A&P Assessment and Plan (1) End stage renal disease: Code(s): N18.6 - End stage renal disease Status: Chronic Assessment and Plan: continue nightly CCPD follow electrolytes, volume status, and clearance replace K+ as needed given limited facilities with regard to SNF/Rehab that can do peritoneal dialysis, may have to consider transitioning to temporary HD unfortunately, in the past, she has not very well with in-center hemodialysis (2) Septic shock: Code(s): A41.9 - Sepsis, unspecified organism; R65.21 - Severe sepsis with septic shock Status: Acute Assessment and Plan: resolving clinical improvement noted with interventions to date BP better at this time (on midodrine) WBC and CRP improving CT of abd/pelvis (on 07/24) noted -- stercoral proctitis playing a role? possible peritonitis from bowel translocation? GI recommendations noted urine culture with VRE blood cultures and PD fluid cultures negative to date repeat PD fluid cell count (07/29/22) has improved completed course of antibiotic therapy (3) Altered mental status: Code(s): R41.82 - Altered mental status, unspecified Status: Acute Assessment and Plan: significant improvement noted related to infection(?) recent head CT with left parietal subarachnoid and potentially intraparenchymal hemorrhage of the brain versus calcification Neurosurgery recommendations noted CT angiogram of brain results noted follow trend of mentation (4) Hyponatremia: Code(s): E87.1 - Hypo-osmolality and hyponatremia Status: Acute Assessment and Plan: improving due to dilution [PRN fluid boluses and incomplete peritoneal dialysis (on 07/23 - 07/24)] and increased free water intake (ice chips) over the last few weeks sodium better s/p 3% saline x 2 and more aggressive dialysis follow trend (5) Pneumonia: Code(s): J18.9 - Pneumonia, unspecified organism Status: Acute Assessment and Plan: chest x-ray shows persistent infiltrates in the right lung completed course of antibiotics on room air (6) Anemia: Code(s): D64.9 - Anemia, unspecified Status: Chronic Assessment and Plan: due to ESRD and acute illness on Epogen suspect some Epogen resistance give high degree of inflammation follow H/H (7) Diabetes mellitus: Onset Date: ~1995 Qualifiers: Diabetes mellitus complication status: without complication Diabetes mellitus prison insulin use: without terminologist use Diabetes mellitus type: type 2 Qualified Code(s): E11.9 - Type 2 diabetes mellitus without complications Code(s): E11.9 - Type 2 diabetes mellitus without complications Status: Chronic Assessment and Plan: on accuchecks glycemic control per hospitalists Will continue to follow. Subjective Date/time seen: 08/05/22 12:13 Tolerated peritoneal dialysis treatment overnight without any issues or problems; eating and drinking reasonably well; working with PT/OT as tolerated although apparently having issues with dizziness with ambulation/standing at times; no apparent distress voiced; mentation seems close to baseline at this time. Exam Narrative: General: WD/WN female in NAD Heart: normal S1 and S2; no rub Lungs: clear bilaterally Abdomen: soft, nondistended, positive bowel sounds Extremities: no edema or cyanosis Skin: warm and intact; some brusing noted Objective Data Vital Signs Vital Signs: Vital Signs Temp Pulse Resp BP Pulse Ox O2 Del Method 08/05/22 12:13 98.9 F 91 17 110/58 L Room Air 08/05/22 11:02 98.9 F 91 17 110/58 L 100 08/05/22 08:00 Room Air 08/05/22 06:00 96.8 F L 85 18 130/80 94 08/05/22 07:10 97.6 F 100 24 H 112/54 L 08/05/22 00:50 100 24 H 08/04/22 22:00 97.6 F 107 H 24 H 112/54 L 100 Intake/Output Intake/Outpu
[2022-08-05] MEDS: INSULIN ASPART (*BKC) 100 UNITS/ML SUB-Q ×2 (12:27→17:21)
--- NOTE | 2022-08-05 15:25 | PM.IMPN ---
Progress Note: A&P Assessment and Plan (1) Septic shock: Code(s): A41.9 - Sepsis, unspecified organism; R65.21 - Severe sepsis with septic shock Status: Acute Assessment and Plan: CXR shows persistent infiltrates in right mid and lower lung which may be pneumonia 07/20, repeat 07/29 pending BCx 07/20 negative Peritoneal Cx 07/21 NGTD Left hip Cx 07/21 NGTD UCx 07/22 growing 100K CFU VRE, started on linezolid 07/24 Peritoneal Fluid 07/24: WBC 2675 with 61% neutrophils, on primaxin + flagyl Peritoneal Cx 07/24 NGTD; No fungal elements. She was started on Aztreonam and Vanco. Levophed infusion started on admission and was able to be weaned off 07/21; also treated with IV fluids and Albumin. Solu-Cortef started but has since been stopped. Midodrine added 07/21. Concern for peritonitis given exam findings on 07/24. BP soft and WBC climbing. Abx adjusted to Primaxin, Flagyl and vanco. CT A/P scan 07/24 showing large amount of retained fecal material in the rectum which is distended. Mild perirectal fluid/inflammation extending into the presacral space. Likely stercoral proctitis, GI on board. 07/24: Urine cx came back VRE, started on linezolid, vanc d/c. Leuk improving on linezolid, primaxin and flagyl 08/01: Discontinue linezolid to complete 7 day course for VRE UTI, will discontinue Primaxin and Flagyl tomorrow to complete a 10 day course 08/02: D/c abx today after 10 day course, monitor closely off abx to ensure complete resolution of leukocytosis 08/03: Off abx. WBC remains normal. mental status slowly improving. Placement being arranged. 08/04: Sepsis resolved. Having difficulty finding a SNF location to accept patient due to her PD requirements. She made need to have tunneled catheter placed for HD for her to be accepted at [facility]. Nephrology managing 08/05: We are seeing how she does with therapy. If not well, then plan for HD tunneled catheter and placement in rehab. (2) Peritonitis: Code(s): K65.9 - Peritonitis, unspecified Status: Acute Assessment and Plan: Peritoneal fluid 07/21 showing no WBC/1 RBC. Cx NGTD. Peritonitis was ruled out but now having increasing pain so testing repeated. Peritoneal fluid 07/24 showing 500RBC/2675WBC with 61% neutrophils c/w peritonitis. CT Abd/pelvis as above. Rectal bleeding felt related to probable stercoral ulcer, now resolved. Repeat cultures NGTD Completed 10 day course abx as above, resolved. (3) Constipation: Code(s): K59.00 - Constipation, unspecified Status: Acute Assessment and Plan: CT scan as mentioned above. Now having rectal bleeding felt related to stercoral ulcer. Soap suds enema given and Miralax started. Consider microperforation given the perirectal inflammation but unclear since she does have PD. GI following. Rectal bleeding resolved. Normal BMs now. Diarrhea better. Miralax on hold but will resume at decreased frequency (4) Hyponatremia: Code(s): E87.1 - Hypo-osmolality and hyponatremia Status: Acute Assessment and Plan: Appreciate nephrology consultation. Mange with dialysis (5) Trochanteric bursitis, left hip: Code(s): M70.62 - Trochanteric bursitis, left hip Status: Acute Assessment and Plan: CT scan of the hip showed severe left trochanteric bursitis with fluid collection measuring 8.4 x 2.4 x 12.0 cm. Close to 200 mL of fluid was removed on 07/21, pigtail catheter left in place. Culture sent and there is no growth. Discussed with orthopedics. Fluid collection may be related to to her peritoneal dialysis. CT showed minimal residual fluid collection, no pain s/p pulling drain. (6) Pneumonia: Code(s): J18.9 - Pneumonia, unspecified organism Status: Acute Assessment and Plan: 07/20 CXR showing persistent right mid and lower lung field infiltrates. Repeat pending today, 07/29 Stable on RA Repeat chest x-ray unchanged from initial, suspect this is scarring and not
[2022-08-05 16:59] LABS: Glucose Point of Care 245 mg/dl (65-105)
[2022-08-05 20:22] LABS: Glucose Point of Care 274 mg/dl (65-105)
[2022-08-05 21:44] LABS: Glucose Point of Care 260 mg/dl (65-105)
[2022-08-06] MEDS: LEVOTHYROXINE SODIUM 12.5 MCG TABLET PO (05:59)
[2022-08-06 06:00] VITALS: BP 112/55; PULSE 94; RESP 22; TEMP 36.2; O2SAT 99
[2022-08-06 07:13] LABS: Basophils Absolute Auto 0.1 K/mm3 (0.0-0.1); Basophils Percent Auto 0.9 % (0.2-1.2); Eosinophils Absolute Auto 0.3 K/mm3 (0-0.3); Eosinophils Percent Auto 3.1 % (0-4.4); Hematocrit 26.8 % (37.0-47.0); Hemoglobin 7.9 g/dL (12.0-15.0); Immature Platelet Fraction Pct 7.8 % (0.9-11.2); Lymphocytes Absolute Auto 1.45 K/mm3 (0.9-3.2); Lymphocytes Percent Auto 14.8 % (18.3-44.2); Mean Corpuscular HGB Conc 29.5 g/dl (32-36); Mean Corpuscular Hemoglobin 31.3 pg (26-34); Mean Corpuscular Volume 106.3 fl (80-100); Mean Platelet Volume 12.6 fl (7.4-10.4); Monocytes Absolute Auto 0.9 K/mm3 (0.1-0.6); Monocytes Percent Auto 9.5 % (2.6-8.5); Neutrophils Percent Auto 70.7 % (45.5-73.1); Nucleated Red Blood Cells Perc 0.2 % (0.0-0.2); Platelet Count Result 71 k/mm3 (150-375); Red Blood Count 2.52 M/mm3 (4.2-5.4); Red Cell Distribution Width 18.2 % (11.5-14.5); White Blood Count 9.8 K/mm3 (4.5-10.0)
[2022-08-06 07:15] VITALS: BP 113/79; PULSE 102; RESP 17; TEMP 36.4
[2022-08-06 07:20] LABS: Alanine Aminotransferase 8 U/L (6-35); Albumin Level 2.6 g/dL (3.5-5.1); Alkaline Phosphatase 167 U/L (38-126); Anion Gap 6 mmol/L (8-16); Aspartate Amino Transferase 16 U/L (14-36); Bilirubin,Total 0.9 mg/dL (0.2-1.3); Blood Urea Nitrogen 49 mg/dL (7-17); Calcium 8.5 mg/dL (8.4-10.2); Carbon Dioxide 28 mmol/L (22-30); Chloride 95 mmol/L (98-107); Estimated CRCL calculation 7 ml/min; Estimated Glomerular Filt Rate 6; Glucose 248 mg/dL (65-110); Potassium 3.3 mmol/L (3.4-5.0); Sodium 129 mmol/L (137-145)
[2022-08-06 08:11] LABS: Anisocytosis 1+ (NORMAL); Hypochromasia 1+ (NORMAL); Macrocytosis 1+ (NORMAL); Platelet Estimate Decreased (Adequate); Schistocytes None Seen (NORMAL); Stomatocytes 1+ (NORMAL); Target Cells 1+ (NORMAL)
[2022-08-06] MEDS: VITAMIN B CMPLX/VIT C/FOLIC AC 1 CAPSULE 1 CAP PO (08:36)
[2022-08-06] MEDS: INSULIN GLARGINE (*BKC) 100 UNITS/ML 15 UNITS SUB-Q (08:36)
[2022-08-06] MEDS: allopurinoL 150 MG TABLET PO (08:36)
[2022-08-06] MEDS: PANTOPRAZOLE 40 MG TABLET PO (08:36)
[2022-08-06] MEDS: CHOLECALCIFEROL 1,000 UNITS TABLET 2000 UNITS PO ×2 (08:36→17:09)
[2022-08-06] MEDS: GABAPENTIN 100 MG CAPSULE PO ×3 (08:36→17:09)
[2022-08-06] MEDS: MIDODRINE HCL 10 MG TABLET PO ×3 (08:36→17:09)
[2022-08-06] MEDS: POTASSIUM CHLORIDE 20 MEQ PACKET (FOR LIQUID) 40 MEQ PO (08:44)
[2022-08-06 09:16] LABS: Glucose Point of Care 248 mg/dl (65-105)
[2022-08-06 09:40] VITALS: BMI 10.0
[2022-08-06 11:13] LABS: Glucose Point of Care 273 mg/dl (65-105)
[2022-08-06] MEDS: INSULIN ASPART (*BKC) 100 UNITS/ML SUB-Q ×2 (12:09→17:09)
[2022-08-06] MEDS: EPOETIN ALFA-EPBX 10,000 UNITS/ML VIAL 10000 UNITS SUB-Q (12:09)
--- NOTE | 2022-08-06 12:19 | PM.PNNEP ---
Progress Note: A&P Assessment and Plan (1) End stage renal disease: Code(s): N18.6 - End stage renal disease Status: Chronic Assessment and Plan: continue nightly CCPD follow electrolytes, volume status, and clearance replace K+ as needed given limited facilities with regard to SNF/Rehab that can do peritoneal dialysis, may have to consider transitioning to temporary HD unfortunately, in the past, she has not very well with in-center hemodialysis (2) Septic shock: Code(s): A41.9 - Sepsis, unspecified organism; R65.21 - Severe sepsis with septic shock Status: Acute Assessment and Plan: resolving clinical improvement noted with interventions to date BP better at this time (on midodrine) WBC and CRP improving CT of abd/pelvis (on 07/24) noted -- stercoral proctitis playing a role? possible peritonitis from bowel translocation? GI recommendations noted urine culture with VRE blood cultures and PD fluid cultures negative to date repeat PD fluid cell count (07/29/22) has improved completed course of antibiotic therapy (3) Altered mental status: Code(s): R41.82 - Altered mental status, unspecified Status: Acute Assessment and Plan: significant improvement noted related to infection(?) recent head CT with left parietal subarachnoid and potentially intraparenchymal hemorrhage of the brain versus calcification Neurosurgery recommendations noted CT angiogram of brain results noted follow trend of mentation (4) Hyponatremia: Code(s): E87.1 - Hypo-osmolality and hyponatremia Status: Acute Assessment and Plan: improving due to dilution [PRN fluid boluses and incomplete peritoneal dialysis (on 07/23 - 07/24)] and increased free water intake (ice chips) over the last few weeks sodium better s/p 3% saline x 2 and more aggressive dialysis follow trend (5) Pneumonia: Code(s): J18.9 - Pneumonia, unspecified organism Status: Acute Assessment and Plan: chest x-ray shows persistent infiltrates in the right lung completed course of antibiotics on room air (6) Anemia: Code(s): D64.9 - Anemia, unspecified Status: Chronic Assessment and Plan: due to ESRD and acute illness on Epogen suspect some Epogen resistance give high degree of inflammation follow H/H (7) Diabetes mellitus: Onset Date: ~1995 Qualifiers: Diabetes mellitus complication status: without complication Diabetes mellitus fpc insulin use: without oysterman use Diabetes mellitus type: type 2 Qualified Code(s): E11.9 - Type 2 diabetes mellitus without complications Code(s): E11.9 - Type 2 diabetes mellitus without complications Status: Chronic Assessment and Plan: on accuchecks glycemic control per hospitalists Will continue to follow. Subjective Date/time seen: 08/06/22 12:19 Eating lunch at the time of my visit and tolerating intake fairly well; tolerated CCPD treatment overnight without any issue/problems; continues to work with PT/OT as tolerated although notes ongoing dizziness/lightheadedness with ambulatory activities; no apparent distress noted and no issues/events overnight. Exam Narrative: General: WD/WN female in NAD Heart: normal S1 and S2; no rub Lungs: clear bilaterally Abdomen: soft, nondistended, positive bowel sounds Extremities: no edema or cyanosis Skin: warm and intact; some brusing noted Objective Data Vital Signs Vital Signs: Vital Signs Temp Pulse Resp BP Pulse Ox O2 Del Method 08/06/22 08:00 Room Air 08/06/22 07:15 97.5 F L 102 H 17 113/79 08/06/22 06:00 97.1 F L 94 22 H 112/55 L 99 08/05/22 23:36 97.5 F L 102 H 17 113/79 100 08/05/22 20:00 Room Air 08/05/22 22:00 96.8 F L 106 H 22 H 99/73 L 100 08/05/22 15:47 98.9 F 91 17 110/58 L Room Air 08/05/22 14:0
--- NOTE | 2022-08-06 12:19 | P.PNNP_ITS ---
Progress Note: A&P Assessment and Plan (1) End stage renal disease: Code(s): N18.6 - End stage renal disease Status: Chronic Assessment and Plan: * continue nightly CCPD * follow electrolytes, volume status, and clearance * replace K+ as needed * given limited facilities with regard to SNF/Rehab that can do peritoneal dialysis, may have to consider transitioning to temporary HD * unfortunately, in the past, she has not very well with in-center hemodialysis (2) Septic shock: Code(s): A41.9 - Sepsis, unspecified organism; R65.21 - Severe sepsis with septic shock Status: Acute Assessment and Plan: * resolving * clinical improvement noted with interventions to date * BP better at this time (on midodrine) * WBC and CRP improving * CT of abd/pelvis (on 07/24) noted -- stercoral proctitis playing a role? * possible peritonitis from bowel translocation? * GI recommendations noted * urine culture with VRE * blood cultures and PD fluid cultures negative to date * repeat PD fluid cell count (07/29/22) has improved * completed course of antibiotic therapy (3) Altered mental status: Code(s): R41.82 - Altered mental status, unspecified Status: Acute Assessment and Plan: * significant improvement noted * related to infection(?) * recent head CT with left parietal subarachnoid and potentially intraparenchymal hemorrhage of the brain versus calcification * Neurosurgery recommendations noted * CT angiogram of brain results noted * follow trend of mentation (4) Hyponatremia: Code(s): E87.1 - Hypo-osmolality and hyponatremia Status: Acute Assessment and Plan: * improving * due to dilution [PRN fluid boluses and incomplete peritoneal dialysis (on 07/23 - 07/24)] and increased free water intake (ice chips) over the last few weeks * sodium better s/p 3% saline x 2 and more aggressive dialysis * follow trend (5) Pneumonia: Code(s): J18.9 - Pneumonia, unspecified organism Status: Acute Assessment and Plan: * chest x-ray shows persistent infiltrates in the right lung * completed course of antibiotics * on room air (6) Anemia: Code(s): D64.9 - Anemia, unspecified Status: Chronic Assessment and Plan: * due to ESRD and acute illness * on Epogen * suspect some Epogen resistance give high degree of inflammation * follow H/H (7) Diabetes mellitus: Onset Date: ~1995 Qualifiers: Diabetes mellitus complication status: without complication Diabetes mellitus [facility] insulin use: without [facility] use Diabetes mellitus type: type 2 Qualified Code(s): E11.9 - Type 2 diabetes mellitus without complications Code(s): E11.9 - Type 2 diabetes mellitus without complications Status: Chronic Assessment and Plan: * on accuchecks * glycemic control per hospitalists Will continue to follow. Subjective Date/time seen: 08/06/22 12:19 Eating lunch at the time of my visit and tolerating intake fairly well; tolerated CCPD treatment overnight without any issue/problems; continues to work with PT/OT as tolerated although notes ongoing dizziness/lightheadedness with ambulatory activities; no apparent distress noted and no issues/events overnight. Exam Narrative: General: WD/WN female in NAD Heart: normal S1 and S2; no rub Lungs: clear bilaterally Abdomen: soft, nondistended, positive bowel sounds Extremities: no edema or cy
[2022-08-06 14:04] VITALS: BP 110/76; PULSE 100; RESP 18; TEMP 36.7; O2SAT 95
--- NOTE | 2022-08-06 14:35 | PM.IMPN ---
Progress Note: A&P Assessment and Plan (1) Septic shock: Code(s): A41.9 - Sepsis, unspecified organism; R65.21 - Severe sepsis with septic shock Status: Acute Assessment and Plan: CXR shows persistent infiltrates in right mid and lower lung which may be pneumonia 07/20, repeat 07/29 pending BCx 07/20 negative Peritoneal Cx 07/21 NGTD Left hip Cx 07/21 NGTD UCx 07/22 growing 100K CFU VRE, started on linezolid 07/24 Peritoneal Fluid 07/24: WBC 2675 with 61% neutrophils, on primaxin + flagyl Peritoneal Cx 07/24 NGTD; No fungal elements. She was started on Aztreonam and Vanco. Levophed infusion started on admission and was able to be weaned off 07/21; also treated with IV fluids and Albumin. Solu-Cortef started but has since been stopped. Midodrine added 07/21. Concern for peritonitis given exam findings on 07/24. BP soft and WBC climbing. Abx adjusted to Primaxin, Flagyl and vanco. CT A/P scan 07/24 showing large amount of retained fecal material in the rectum which is distended. Mild perirectal fluid/inflammation extending into the presacral space. Likely stercoral proctitis, GI on board. 07/24: Urine cx came back VRE, started on linezolid, vanc d/c. Leuk improving on linezolid, primaxin and flagyl 08/01: Discontinue linezolid to complete 7 day course for VRE UTI, will discontinue Primaxin and Flagyl tomorrow to complete a 10 day course 08/02: D/c abx today after 10 day course, monitor closely off abx to ensure complete resolution of leukocytosis 08/03: Off abx. WBC remains normal. mental status slowly improving. Placement being arranged. 08/04: Sepsis resolved. Having difficulty finding a SNF location to accept patient due to her PD requirements. She made need to have tunneled catheter placed for HD for her to be accepted at [facility]. Nephrology managing 08/05: We are seeing how she does with therapy. If not well, then plan for HD tunneled catheter and placement in rehab. 08/06: No change. Slowly improving with therapy. Probably will need HD catheter placement by Monday if remains weak (2) Peritonitis: Code(s): K65.9 - Peritonitis, unspecified Status: Acute Assessment and Plan: Peritoneal fluid 07/21 showing no WBC/1 RBC. Cx NGTD. Peritonitis was ruled out but now having increasing pain so testing repeated. Peritoneal fluid 07/24 showing 500RBC/2675WBC with 61% neutrophils c/w peritonitis. CT Abd/pelvis as above. Rectal bleeding felt related to probable stercoral ulcer, now resolved. Repeat cultures NGTD Completed 10 day course abx as above, resolved. (3) Constipation: Code(s): K59.00 - Constipation, unspecified Status: Acute Assessment and Plan: CT scan as mentioned above. Now having rectal bleeding felt related to stercoral ulcer. Soap suds enema given and Miralax started. Consider microperforation given the perirectal inflammation but unclear since she does have PD. GI following. Rectal bleeding resolved. Normal BMs now. Diarrhea better. Miralax resumed at decreased frequency and tolerating well (4) Hyponatremia: Code(s): E87.1 - Hypo-osmolality and hyponatremia Status: Acute Assessment and Plan: Appreciate nephrology consultation. Mange with dialysis (5) Trochanteric bursitis, left hip: Code(s): M70.62 - Trochanteric bursitis, left hip Status: Acute Assessment and Plan: CT scan of the hip showed severe left trochanteric bursitis with fluid collection measuring 8.4 x 2.4 x 12.0 cm. Close to 200 mL of fluid was removed on 07/21, pigtail catheter left in place. Culture sent and there is no growth. Discussed with orthopedics. Fluid collection may be related to to her peritoneal dialysis. CT showed minimal residual fluid collection, no pain s/p pulling drain. Continue PT/OT (6) Pneumonia: Code(s): J18.9 - Pneumonia, unspecified organism Status: Acute Assessment and Plan: 07/20 CXR showing persistent right mid and lower lung fiel
[2022-08-06 16:31] VITALS: BP 110/76; PULSE 100; RESP 18; TEMP 36.7
[2022-08-06 16:51] LABS: Glucose Point of Care 215 mg/dl (65-105)
[2022-08-06 20:44] LABS: Glucose Point of Care 377 mg/dl (65-105)
[2022-08-06 21:45] VITALS: BP 103/53; PULSE 108; RESP 20; TEMP 36.4; O2SAT 90
[2022-08-07] VITALS (7 sets, daily range): BP systolic 104–122; BP diastolic 48–66; PULSE 53–110; RESP 16–18; TEMP 35.9–36.4; O2SAT 94–100; BMI 10.0
[2022-08-07] MEDS: LEVOTHYROXINE SODIUM 12.5 MCG TABLET PO (05:45)
[2022-08-07 06:11] LABS: Basophils Absolute Auto 0.1 K/mm3 (0.0-0.1); Basophils Percent Auto 1.1 % (0.2-1.2); Eosinophils Absolute Auto 0.3 K/mm3 (0-0.3); Hematocrit 26.7 % (37.0-47.0); Hemoglobin 7.8 g/dL (12.0-15.0); Immature Granulocyte Absolute 0.27 K/mm3 (0.00-0.031); Immature Granulocyte Percent A 2.6 % (0-0.5); Immature Platelet Fraction Pct 7.3 % (0.9-11.2); Lymphocytes Absolute Auto 1.65 K/mm3 (0.9-3.2); Lymphocytes Percent Auto 16.1 % (18.3-44.2); Mean Corpuscular HGB Conc 29.2 g/dl (32-36); Mean Corpuscular Hemoglobin 30.5 pg (26-34); Mean Corpuscular Volume 104.3 fl (80-100); Mean Platelet Volume 11.9 fl (7.4-10.4); Monocytes Absolute Auto 0.9 K/mm3 (0.1-0.6); Neutrophils Percent Auto 68.2 % (45.5-73.1); Nucleated Red Blood Cells Absolute Auto 0.1 K/mm3 (0.0-0.012); Nucleated Red Blood Cells Perc 0.5 % (0.0-0.2); Platelet Count Result 92 k/mm3 (150-375); Red Blood Count 2.56 M/mm3 (4.2-5.4); Red Cell Distribution Width 18.2 % (11.5-14.5); White Blood Count 10.3 K/mm3 (4.5-10.0)
[2022-08-07 06:21] LABS: Alanine Aminotransferase 8 U/L (6-35); Albumin Level 2.6 g/dL (3.5-5.1); Alkaline Phosphatase 178 U/L (38-126); Anion Gap 3 mmol/L (8-16); Aspartate Amino Transferase 16 U/L (14-36); Bilirubin,Total 0.8 mg/dL (0.2-1.3); Blood Urea Nitrogen 47 mg/dL (7-17); Calcium 8.4 mg/dL (8.4-10.2); Carbon Dioxide 29 mmol/L (22-30); Chloride 94 mmol/L (98-107); Estimated CRCL calculation 7 ml/min; Estimated Glomerular Filt Rate 6; Glucose 231 mg/dL (65-110); Potassium 3.6 mmol/L (3.4-5.0); Sodium 126 mmol/L (137-145)
[2022-08-07 06:36] LABS: Anisocytosis 1+ (NORMAL); Hypochromasia 1+ (NORMAL); Macrocytosis 1+ (NORMAL); Platelet Estimate Decreased (Adequate); Target Cells 1+ (NORMAL)
[2022-08-07 06:37] LABS: Schistocytes None Seen (NORMAL)
[2022-08-07 08:34] LABS: Glucose Point of Care 214 mg/dl (65-105)
[2022-08-07] MEDS: INSULIN ASPART (*BKC) 100 UNITS/ML SUB-Q ×3 (08:57→17:53)
[2022-08-07] MEDS: MIDODRINE HCL 10 MG TABLET PO ×3 (08:58→17:55)
[2022-08-07] MEDS: VITAMIN B CMPLX/VIT C/FOLIC AC 1 CAPSULE 1 CAP PO (08:58)
[2022-08-07] MEDS: allopurinoL 150 MG TABLET PO (08:58)
[2022-08-07] MEDS: GABAPENTIN 100 MG CAPSULE PO ×3 (08:58→17:54)
[2022-08-07] MEDS: LIDOCAINE 5% PATCH 2 PATCH TOPICAL (08:59)
[2022-08-07] MEDS: CHOLECALCIFEROL 1,000 UNITS TABLET 2000 UNITS PO ×2 (08:59→17:54)
[2022-08-07] MEDS: PANTOPRAZOLE 40 MG TABLET PO (09:00)
[2022-08-07] MEDS: INSULIN GLARGINE (*BKC) 100 UNITS/ML 15 UNITS SUB-Q (09:02)
[2022-08-07 11:56] LABS: Glucose Point of Care 264 mg/dl (65-105)
--- NOTE | 2022-08-07 12:28 | PM.PNNEP ---
Progress Note: A&P Assessment and Plan (1) End stage renal disease: Code(s): N18.6 - End stage renal disease Status: Chronic Assessment and Plan: continue nightly CCPD follow electrolytes, volume status, and clearance replace K+ as needed given limited facilities with regard to SNF/Rehab that can do peritoneal dialysis, may have to consider transitioning to temporary HD just for placement unfortunately, in the past, she has not very well with in-center hemodialysis however, based on PT/OT notes as well discussion with care coordination as well as the patient, the likelihood of significant recovery from her deconditioning is not very good...hence she will likely need SNF/Rehab. consult Surgery for placement of HD catheter (2) Septic shock: Code(s): A41.9 - Sepsis, unspecified organism; R65.21 - Severe sepsis with septic shock Status: Acute Assessment and Plan: resolving clinical improvement noted with interventions to date BP better at this time (on midodrine) WBC and CRP improving CT of abd/pelvis (on 07/24) noted -- stercoral proctitis playing a role? possible peritonitis from bowel translocation? GI recommendations noted urine culture with VRE blood cultures and PD fluid cultures negative to date repeat PD fluid cell count (07/29/22) has improved completed course of antibiotic therapy (3) Altered mental status: Code(s): R41.82 - Altered mental status, unspecified Status: Acute Assessment and Plan: significant improvement noted related to infection(?) recent head CT with left parietal subarachnoid and potentially intraparenchymal hemorrhage of the brain versus calcification Neurosurgery recommendations noted CT angiogram of brain results noted follow trend of mentation (4) Hyponatremia: Code(s): E87.1 - Hypo-osmolality and hyponatremia Status: Acute Assessment and Plan: improving due to dilution [PRN fluid boluses and incomplete peritoneal dialysis (on 07/23 - 07/24)] and increased free water intake (ice chips) over the last few weeks sodium better s/p 3% saline x 2 and more aggressive dialysis follow trend (5) Pneumonia: Code(s): J18.9 - Pneumonia, unspecified organism Status: Acute Assessment and Plan: chest x-ray shows persistent infiltrates in the right lung completed course of antibiotics on room air (6) Anemia: Code(s): D64.9 - Anemia, unspecified Status: Chronic Assessment and Plan: due to ESRD and acute illness on Epogen suspect some Epogen resistance give high degree of inflammation follow H/H (7) Diabetes mellitus: Onset Date: ~1995 Qualifiers: Diabetes mellitus complication status: without complication 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 Will consult Surgery for HD catheter placement. Will continue to follow. Subjective Date/time seen: 08/07/22 12:28 Mentation continues to improve if not back to baseline; eating and drinking reasonably well and is tolerating peritoneal dialysis treatments overnight; working with PT/OT as tolerated; no apparent distress voiced at the time of my visit. Exam Narrative: General: WD/WN female in NAD Heart: normal S1 and S2; no rub Lungs: clear
--- NOTE | 2022-08-07 12:28 | P.PNNP_ITS ---
Progress Note: A&P Assessment and Plan (1) End stage renal disease: Code(s): N18.6 - End stage renal disease Status: Chronic Assessment and Plan: * continue nightly CCPD * follow electrolytes, volume status, and clearance * replace K+ as needed * given limited facilities with regard to SNF/Rehab that can do peritoneal dialysis, may have to consider transitioning to temporary HD just for placement * unfortunately, in the past, she has not very well with in-center hemodialysis * however, based on PT/OT notes as well discussion with care coordination as well as the patient, the likelihood of significant recovery from her deconditioning is not very good...hence she will likely need SNF/Rehab. * consult Surgery for placement of HD catheter (2) Septic shock: Code(s): A41.9 - Sepsis, unspecified organism; R65.21 - Severe sepsis with septic shock Status: Acute Assessment and Plan: * resolving * clinical improvement noted with interventions to date * BP better at this time (on midodrine) * WBC and CRP improving * CT of abd/pelvis (on 07/24) noted -- stercoral proctitis playing a role? * possible peritonitis from bowel translocation? * GI recommendations noted * urine culture with VRE * blood cultures and PD fluid cultures negative to date * repeat PD fluid cell count (07/29/22) has improved * completed course of antibiotic therapy (3) Altered mental status: Code(s): R41.82 - Altered mental status, unspecified Status: Acute Assessment and Plan: * significant improvement noted * related to infection(?) * recent head CT with left parietal subarachnoid and potentially intraparenchymal hemorrhage of the brain versus calcification * Neurosurgery recommendations noted * CT angiogram of brain results noted * follow trend of mentation (4) Hyponatremia: Code(s): E87.1 - Hypo-osmolality and hyponatremia Status: Acute Assessment and Plan: * improving * due to dilution [PRN fluid boluses and incomplete peritoneal dialysis (on 07/23 - 07/24)] and increased free water intake (ice chips) over the last few weeks * sodium better s/p 3% saline x 2 and more aggressive dialysis * follow trend (5) Pneumonia: Code(s): J18.9 - Pneumonia, unspecified organism Status: Acute Assessment and Plan: * chest x-ray shows persistent infiltrates in the right lung * completed course of antibiotics * on room air (6) Anemia: Code(s): D64.9 - Anemia, unspecified Status: Chronic Assessment and Plan: * due to ESRD and acute illness * on Epogen * suspect some Epogen resistance give high degree of inflammation * follow H/H (7) Diabetes mellitus: Onset Date: ~1995 Qualifiers: Diabetes mellitus complication status: without complication 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 Will consult [facility]
[2022-08-07 16:43] LABS: Glucose Point of Care 316 mg/dl (65-105)
--- NOTE | 2022-08-07 17:12 | PM.IMPN ---
Progress Note: A&P Assessment and Plan (1) Metabolic encephalopathy: Code(s): G93.41 - Metabolic encephalopathy Status: Acute Assessment and Plan: [place] confusion related to metabolic encephalopathy from sepsis. Head CT on admission with Extra soft tissue in the left posterior parietal region with associated calcifications suspicious for chronic subdural or subarachnoid hematoma. CT the brain was repeated and shows a linear increased attenuation extending along the sulcus and left parietal occipital region which slightly decreased from prior study concerning from subarachnoid hemorrhage. CT angiography of the brain shows stable curvilinear hyperdensity in left parietal region. Neurology and neurosurgery consulted. Condition is slowly improving. Continue PT/OT (2) Diabetes mellitus: Onset Date: ~1995 Qualifiers: Diabetes mellitus type: type 2 Diabetes mellitus superintendent terminal insulin use: without nursing home use Diabetes mellitus complication status: without complication Qualified Code(s): E11.9 - Type 2 diabetes mellitus without complications Code(s): E11.9 - Type 2 diabetes mellitus without complications Status: Chronic Assessment and Plan: A1c 7.1 in 06/27. The patient's blood glucose was reviewed on 08/07 Glucose poorly controlled. Continue AccuCheks covering with sliding scale. Hypoglycemia protocol available as needed. Advance Lantus (3) Septic shock: Code(s): A41.9 - Sepsis, unspecified organism; R65.21 - Severe sepsis with septic shock Status: Acute Assessment and Plan: CXR shows persistent infiltrates in right mid and lower lung which may be pneumonia 07/20, repeat 07/29 pending BCx 07/20 negative Peritoneal Cx 07/21 NGTD Left hip Cx 07/21 NGTD UCx 07/22 growing 100K CFU VRE, started on linezolid 07/24 Peritoneal Fluid 07/24: WBC 2675 with 61% neutrophils, on primaxin + flagyl Peritoneal Cx 07/24 NGTD; No fungal elements. She was started on Aztreonam and Vanco. Levophed infusion started on admission and was able to be weaned off 07/21; also treated with IV fluids and Albumin. Solu-Cortef started but has since been stopped. Midodrine added 07/21. Concern for peritonitis given exam findings on 07/24. BP soft and WBC climbing. Abx adjusted to Primaxin, Flagyl and vanco. CT A/P scan 07/24 showing large amount of retained fecal material in the rectum which is distended. Mild perirectal fluid/inflammation extending into the presacral space. Likely stercoral proctitis, GI on board. 07/24: Urine cx came back VRE, started on linezolid, vanc d/c. Leuk improving on linezolid, primaxin and flagyl 08/01: Discontinue linezolid to complete 7 day course for VRE UTI, will discontinue Primaxin and Flagyl tomorrow to complete a 10 day course 08/02: D/c abx today after 10 day course, monitor closely off abx to ensure complete resolution of leukocytosis 08/03: Off abx. WBC remains normal. mental status slowly improving. Placement being arranged. 08/04: Sepsis resolved. Having difficulty finding a SNF location to accept patient due to her PD requirements. She made need to have tunneled catheter placed for HD for her to be accepted at . Nephrology managing 08/05: We are seeing how she does with therapy. If not well, then plan for HD tunneled catheter and placement in rehab. 08/06: No change. Slowly improving with therapy. Probably will need HD catheter placement by Monday if remains weak Resolved. (4) Peritonitis: Code(s): K65.9 - Peritonitis, unspecified Status: Acute Assessment and Plan: Peritoneal fluid 07/21 showing no WBC/1 RBC. Cx NGTD. Peritonitis was ruled out but now having increasing pain so testing repeated. Peritoneal fluid 07/24 showing 500RBC/2675WBC with 61% neutrophils c/w peritonitis. CT Abd/pelvis as above. Rectal bleeding felt related to probable stercoral ulcer, now resolved. Repeat cultures NGTD Completed 10 day course abx as above, resolved. (5) C
[2022-08-07 20:55] LABS: Glucose Point of Care 250 mg/dl (65-105)
[2022-08-08 05:00] VITALS: BP 117/78; PULSE 57; RESP 18; TEMP 36.4; O2SAT 100
[2022-08-08] MEDS: LEVOTHYROXINE SODIUM 12.5 MCG TABLET PO (05:51)
[2022-08-08 06:34] LABS: Basophils Absolute Auto 0.2 K/mm3 (0.0-0.1); Basophils Percent Auto 1.4 % (0.2-1.2); Eosinophils Absolute Auto 0.2 K/mm3 (0-0.3); Eosinophils Percent Auto 1.9 % (0-4.4); Hematocrit 28.5 % (37.0-47.0); Hemoglobin 8.4 g/dL (12.0-15.0); Immature Granulocyte Absolute 0.26 K/mm3 (0.00-0.031); Immature Granulocyte Percent A 2.3 % (0-0.5); Immature Platelet Fraction Pct 6.7 % (0.9-11.2); Lymphocytes Absolute Auto 1.45 K/mm3 (0.9-3.2); Lymphocytes Percent Auto 13.1 % (18.3-44.2); Mean Corpuscular HGB Conc 29.5 g/dl (32-36); Mean Corpuscular Hemoglobin 30.8 pg (26-34); Mean Corpuscular Volume 104.4 fl (80-100); Mean Platelet Volume 11.7 fl (7.4-10.4); Monocytes Percent Auto 9.3 % (2.6-8.5); Nucleated Red Blood Cells Absolute Auto 0.1 K/mm3 (0.0-0.012); Nucleated Red Blood Cells Perc 0.8 % (0.0-0.2); Platelet Count Result 133 k/mm3 (150-375); Red Blood Count 2.73 M/mm3 (4.2-5.4); Red Cell Distribution Width 18.8 % (11.5-14.5); White Blood Count 11.1 K/mm3 (4.5-10.0)
[2022-08-08 06:51] LABS: Alanine Aminotransferase 9 U/L (6-35); Albumin Level 2.7 g/dL (3.5-5.1); Alkaline Phosphatase 175 U/L (38-126); Anion Gap 9 mmol/L (8-16); Aspartate Amino Transferase 20 U/L (14-36); Bilirubin,Total 0.9 mg/dL (0.2-1.3); Blood Urea Nitrogen 45 mg/dL (7-17); Calcium 8.2 mg/dL (8.4-10.2); Carbon Dioxide 24 mmol/L (22-30); Chloride 98 mmol/L (98-107); Estimated CRCL calculation 7 ml/min; Estimated Glomerular Filt Rate 6; Glucose 282 mg/dL (65-110); Potassium 3.7 mmol/L (3.4-5.0); Sodium 131 mmol/L (137-145)
[2022-08-08 07:08] VITALS: BP 117/78; PULSE 57; RESP 18; TEMP 36.4
[2022-08-08 07:24] LABS: Anisocytosis 1+ (NORMAL); Hypochromasia 1+ (NORMAL); Macrocytosis 1+ (NORMAL); Schistocytes None Seen (NORMAL)
[2022-08-08 08:04] LABS: Glucose Point of Care 286 mg/dl (65-105)
[2022-08-08] MEDS: INSULIN GLARGINE (*BKC) 100 UNITS/ML 22 UNITS SUB-Q (09:16)
[2022-08-08] MEDS: INSULIN ASPART (*BKC) 100 UNITS/ML SUB-Q (09:16)
[2022-08-08] MEDS: GABAPENTIN 100 MG CAPSULE PO (09:17)
[2022-08-08] MEDS: LIDOCAINE 5% PATCH 2 PATCH TOPICAL (09:17)
[2022-08-08] MEDS: MIDODRINE HCL 10 MG TABLET PO (09:17)
[2022-08-08] MEDS: allopurinoL 150 MG TABLET PO (09:17)
[2022-08-08] MEDS: ACETAMINOPHEN 325 MG TABLET 650 MG PO (09:18)
[2022-08-08] MEDS: VITAMIN B CMPLX/VIT C/FOLIC AC 1 CAPSULE 1 CAP PO (09:18)
[2022-08-08] MEDS: CHOLECALCIFEROL 1,000 UNITS TABLET 2000 UNITS PO (09:18)
[2022-08-08] MEDS: PANTOPRAZOLE 40 MG TABLET PO (09:18)
--- NOTE | 2022-08-08 10:59 | P.PNNP_ITS ---
Progress Note: A&P Assessment and Plan (1) End stage renal disease: Code(s): N18.6 - End stage renal disease Status: Chronic Assessment and Plan: * continue nightly CCPD * follow electrolytes, volume status, and clearance * replace K+ as needed * given limited facilities with regard to SNF/Rehab that can do peritoneal dialysis, may have to consider transitioning to temporary HD just for placement * unfortunately, in the past, she has not very well with in-center hemodialysis * however, based on PT/OT notes as well discussion with care coordination as well as the patient, the likelihood of significant recovery from her deconditioning is not very good...hence she will likely need SNF/Rehab. * consulted Surgery for placement of HD catheter (2) Septic shock: Code(s): A41.9 - Sepsis, unspecified organism; R65.21 - Severe sepsis with septic shock Status: Acute Assessment and Plan: * resolving * clinical improvement noted with interventions to date * BP better at this time (on midodrine) * CT of abd/pelvis (on 07/24) noted -- stercoral proctitis playing a role? * possible peritonitis from bowel translocation? * GI recommendations noted * urine culture with VRE * blood cultures and PD fluid cultures negative to date * repeat PD fluid cell count (07/29/22) has improved * completed course of antibiotic therapy (3) Altered mental status: Code(s): R41.82 - Altered mental status, unspecified Status: Acute Assessment and Plan: * significant improvement noted * related to infection(?) * recent head CT with left parietal subarachnoid and potentially intraparenchymal hemorrhage of the brain versus calcification * Neurosurgery recommendations noted * CT angiogram of brain results noted * follow trend of mentation (4) Hyponatremia: Code(s): E87.1 - Hypo-osmolality and hyponatremia Status: Acute Assessment and Plan: * improving * due to dilution [PRN fluid boluses and incomplete peritoneal dialysis (on 07/23 - 07/24)] and increased free water intake (ice chips) over the last few weeks * sodium better s/p 3% saline x 2 and more aggressive dialysis * follow trend (5) Pneumonia: Code(s): J18.9 - Pneumonia, unspecified organism Status: Acute Assessment and Plan: * chest x-ray shows persistent infiltrates in the right lung * completed course of antibiotics * on room air (6) Anemia: Code(s): D64.9 - Anemia, unspecified Status: Chronic Assessment and Plan: * due to ESRD and acute illness * on Epogen * suspect some Epogen resistance give high degree of inflammation * follow H/H (7) Diabetes mellitus: Onset Date: ~1995 Qualifiers: Diabetes mellitus complication status: without complication Diabetes mellitus usp insulin use: without exterminator helper termite use Diabetes mellitus type: type 2 Qualified Code(s): E11.9 - Type 2 diabetes mellitus without complications Code(s): E11.9 - Type 2 diabetes mellitus without complications Status: Chronic Assessment and Plan: * on accuchecks * glycemic control per hospitalists Will continue to follow. Subjective Date/time seen: 08/08/22 10:59 Tolerated peritoneal dialysis treatment overnight without any issues or problems; continues to work with PT/OT as tolerated; eating and drinking reasonably well; Surgery consulted for tunneled HD catheter placement. Exam Narrative: General: TAYLOR
--- NOTE | 2022-08-08 10:59 | PM.PNNEP ---
Progress Note: A&P Assessment and Plan (1) End stage renal disease: Code(s): N18.6 - End stage renal disease Status: Chronic Assessment and Plan: continue nightly CCPD follow electrolytes, volume status, and clearance replace K+ as needed given limited facilities with regard to SNF/Rehab that can do peritoneal dialysis, may have to consider transitioning to temporary HD just for placement unfortunately, in the past, she has not very well with in-center hemodialysis however, based on PT/OT notes as well discussion with care coordination as well as the patient, the likelihood of significant recovery from her deconditioning is not very good...hence she will likely need SNF/Rehab. consulted Surgery for placement of HD catheter (2) Septic shock: Code(s): A41.9 - Sepsis, unspecified organism; R65.21 - Severe sepsis with septic shock Status: Acute Assessment and Plan: resolving clinical improvement noted with interventions to date BP better at this time (on midodrine) CT of abd/pelvis (on 07/24) noted -- stercoral proctitis playing a role? possible peritonitis from bowel translocation? GI recommendations noted urine culture with VRE blood cultures and PD fluid cultures negative to date repeat PD fluid cell count (07/29/22) has improved completed course of antibiotic therapy (3) Altered mental status: Code(s): R41.82 - Altered mental status, unspecified Status: Acute Assessment and Plan: significant improvement noted related to infection(?) recent head CT with left parietal subarachnoid and potentially intraparenchymal hemorrhage of the brain versus calcification Neurosurgery recommendations noted CT angiogram of brain results noted follow trend of mentation (4) Hyponatremia: Code(s): E87.1 - Hypo-osmolality and hyponatremia Status: Acute Assessment and Plan: improving due to dilution [PRN fluid boluses and incomplete peritoneal dialysis (on 07/23 - 07/24)] and increased free water intake (ice chips) over the last few weeks sodium better s/p 3% saline x 2 and more aggressive dialysis follow trend (5) Pneumonia: Code(s): J18.9 - Pneumonia, unspecified organism Status: Acute Assessment and Plan: chest x-ray shows persistent infiltrates in the right lung completed course of antibiotics on room air (6) Anemia: Code(s): D64.9 - Anemia, unspecified Status: Chronic Assessment and Plan: due to ESRD and acute illness on Epogen suspect some Epogen resistance give high degree of inflammation follow H/H (7) Diabetes mellitus: Onset Date: ~1995 Qualifiers: Diabetes mellitus complication status: without complication Diabetes mellitus exterminator termite insulin use: without exterminator termite use Diabetes mellitus type: type 2 Qualified Code(s): E11.9 - Type 2 diabetes mellitus without complications Code(s): E11.9 - Type 2 diabetes mellitus without complications Status: Chronic Assessment and Plan: on accuchecks glycemic control per hospitalists Will continue to follow. Subjective Date/time seen: 08/08/22 10:59 Tolerated peritoneal dialysis treatment overnight without any issues or problems; continues to work with PT/OT as tolerated; eating and drinking reasonably well; Surgery consulted for tunneled HD catheter placement. Exam Narrative: General: WD/WN female in NAD Heart: normal S1 and S2; no rub Lungs: clear bilaterally Abdomen: soft, nondistended, positive bowel sounds Extremities: no edema or cyanosis Skin: warm and dry Objective Data Vital Signs Vital Signs: Vital Signs Temp Pulse Resp BP Pulse Ox O2 Del Method 08/08/22 07:08 97.6 F 57 L 18 117/78 08/08/22 05:00 97.6 F 57 L 18 117/78 100 08/07/22 20:50 96.7 F L 110 H 18 111/48 L 100 08/07/22 20:02 96.9 F L 106 H 18 106/51 L Room Air
--- NOTE | 2022-08-08 11:04 | PM.CNGS ---
Assessment and Plan Assessment and plan (1) End-stage renal disease on peritoneal dialysis: Onset Date: 06/2016 Code(s): N18.6 - End stage renal disease; Z99.2 - Dependence on renal dialysis Status: Chronic Assessment and Plan: Patient with ESRD on peritoneal dialysis. Nephrology requesting placement of tunneled HD catheter for temporary transition to hemodialysis for placement to SNF/rehab on discharge, as no local facilities are able to accommodate peritoneal dialysis. Description of the procedure, risks, benefits, expected outcomes, and expected recovery were discussed with the patient and her . They agree to proceed with insertion tunneled hemodialysis catheter by Dr. Webster today. I made her NPO this morning. She has been added onto the surgery schedule today. (2) VRE infection (vancomycin resistant enterococcus), with multi-drug resistance: Code(s): A49.1 - Streptococcal infection, unspecified site; Z16.24 - Resistance to multiple antibiotics Status: Acute (3) Metabolic encephalopathy: Code(s): G93.41 - Metabolic encephalopathy Status: Acute (4) Pneumonia: Code(s): J18.9 - Pneumonia, unspecified organism Status: Acute (5) Type 2 diabetes mellitus: Onset Date: 1995 Code(s): E11.9 - Type 2 diabetes mellitus without complications Status: Acute (6) Hypertension: Onset Date: 1983 Code(s): I10 - Essential (primary) hypertension Status: Acute (7) Polycystic kidney disease: Code(s): Q61.3 - Polycystic kidney, unspecified Status: Chronic (8) Anemia of chronic disease: Code(s): D63.8 - Anemia in other chronic diseases classified elsewhere Status: Chronic (9) Asthma: Qualifiers: Asthma severity: mild Asthma persistence: intermittent Asthma complication type: uncomplicated Qualified Code(s): J45.20 - Mild intermittent asthma, uncomplicated Code(s): J45.909 - Unspecified asthma, uncomplicated Status: Acute (10) Hyponatremia: Code(s): E87.1 - Hypo-osmolality and hyponatremia Status: Acute Plan I have discussed the patient's case and plan of care with Dr. Webster. Thank you for allowing us to see the patient in consultation. History of Present Illness Consult details Consult date: 08/08/22 Reason for consult: other (Tunneled hemodialysis catheter placement) Requesting physician: Mona Garrido MD Narrative: This is a 66 yo F with ESRD who is on peritoneal dialysis and multiple other complex medical problems. She has been admitted since 07/20/22 and treated for metabolic encephalopathy, peritonitis, sepsis, VRE UTI, pneumonia, constipation, left hip bursitis, and hyponatremia. She has completed antibiotics for the VRE UTI, peritonitis, and pneumonia. Blood cultures were negative. Nephrology has been following and has been on peritoneal dialysis for over 5 years. She does have a history of requiring hemodialysis intermittently in the past when needing surgery or having other acute issues. This has all been through a temporary hemodialysis catheter in her chest per her . She has not done well in the past with in-center hemodialysis, but she has become deconditioned and weak while hospitalized. PT/OT are following the patient and have been working with her to increase her strength, but she continues to need significant assistance with recommendations of discharge to SNF/rehab. There are no local rehab facilities that can do peritoneal dialysis, therefore they have decided on temporarily switching to hemodialysis for SNF placement. Our service has been consulted for placement of a tunneled hemodialysis catheter. She is now seen with her at the bedside. She is pleasantly confused, which her states has been ongoing. They are agreeable to catheter placement. Review of Systems Review of Systems: ROS unobtainable: Yes unobtainable due to mental status (conf
[2022-08-08 11:34] LABS: Glucose Point of Care 248 mg/dl (65-105)
[2022-08-08 13:00] VITALS: BP 107/50; PULSE 102; RESP 18; TEMP 37.5; O2SAT 97
[2022-08-08 13:12] LABS: Glucose Point of Care 195 mg/dl (65-105)
--- NOTE | 2022-08-08 13:29 | WPDHPUPDATE1 ---
History and Physical Update Update Date/Time: 08/08/22 13:29 History and Physical has been reviewed, including an updated exam of the patient. There are NO changes in the patient's condition. Risks, benefits, and alternatives have been discussed and questions answered. Patient agrees to proceed with procedure.
--- NOTE | 2022-08-08 13:40 | WPDANESEPPF ---
Anes - Initial Pre Proc Eval Procedure: Operation Date: 08/08/22 15:00 Proposed Procedures p Insertion Tunneled Dialysis Catheter - Julianne Webster MD Date/Time: 08/08/22 13:40 Surgeon: Pepe Olson MD Pre Op Diagnosis: sepsis,abdominal pain,sbp Patient Data Age: 66 Gender: F Height: 1.6 m Weight: 74.5 kg Last Vital Signs Temp 37.5 C 08/08/22 13:00 Pulse 102 H 08/08/22 13:00 Resp 18 08/08/22 13:00 BP 107/50 L 08/08/22 13:00 Pulse Ox 97 08/08/22 13:00 O2 Del Method Autopap 08/08/22 13:00 Allergies Allergy/AdvReac Type Severity Reaction Status Date / Time azithromycin Allergy Severe Hives / Verified 07/13/22 13:50 Red [place] cephalexin Allergy Severe Hives / Verified 07/13/22 13:50 [place] Cephalosporins Allergy Severe Hives / Verified 07/25/22 10:14 [place] hydrocodone Allergy Severe Hives / Verified 07/13/22 13:50 [place] Penicillins Allergy Intermediate Hives / Verified 07/13/22 13:50 [place] tetracycline Allergy Unknown Rash Verified 07/13/22 13:50 aspirin AdvReac Severe Ulcers Verified 07/13/22 13:50 codeine AdvReac Intermediate Hallucinati Verified 07/13/22 13:50 ng diazepam AdvReac Intermediate Confusion Verified 07/13/22 13:50 fentanyl AdvReac Intermediate Nausea Verified 07/13/22 13:50 orphenadrine AdvReac Intermediate Other Verified 07/13/22 13:50 Home Medications Medication Instructions Recorded Confirmed Type ondansetron HCl 4 mg tablet 4 mg PO Q6H PRN nausea and 07/23/19 07/20/22 Rx (Zofran) vomiting #10 tabs furosemide 80 mg tablet 80 mg PO BID 03/25/20 07/20/22 History omeprazole 20 mg capsule,delayed 20 mg PO DAILY #90 caps 03/25/20 07/20/22 Rx release vitamin B complex-vitamin C-folic 1 tablet PO DAILY 03/25/20 07/20/22 History acid 0.8 mg tablet (Renal-Yojana) lidocaine 5 % topical patch 2 patch topical DAILY #15 ea 10/28/20 07/20/22 Rx (Lidoderm) cholecalciferol (vitamin D3) 50 50 mcg PO BID 12/22/20 07/20/22 History mcg (2,000 unit) capsule cinnamon bark 500 mg capsule 1,000 mg PO BID 12/22/20 07/20/22 History cranberry 500 mg capsule 500 mg PO DAILY 12/22/20 07/20/22 History sevelamer carbonate 800 mg tablet 5,600 mg PO TIDWM 12/22/20 07/20/22 History levothyroxine 25 mcg tablet 12.5 mcg PO DAILY #45 tabs 09/13/21 07/20/22 Rx meclizine 12.5 mg tablet 12.5 mg PO DAILY PRN dizziness #30 09/13/21 07/20/22 Rx tabs allopurinol 300 mg tablet 150 mg PO DAILY #90 tabs 10/18/21 07/20/22 Rx pioglitazone 30 mg tablet 30 mg PO DAILY #90 tabs 04/04/22 07/20/22 Rx fluticasone propionate 50 1 spray intranasal BID 06/16/22 07/20/22 History mcg/actuation nasal spray,suspension (Flonase Allergy Relief) loratadine 10 mg tablet (Claritin) 10 mg PO DAILY PRN Congestion 06/16/22 07/20/22 History polyethylene glycol 3350 17 gram 17 g PO QAM 06/16/22 07/20/22 History oral powder packet (Miralax) gabapentin 100 mg capsule 100 mg PO TID 1 month #90 caps 07/17/22 07/20/22 Rx tizanidine 2 mg tablet 2 mg PO QHS 1 month #30 tabs 07/17/22 07/20/22 Rx Laboratory Tests 08/07/22 08/07/22 08/08/22 16:33 20:40 06:09 WBC 11.1 K/mm3 H K/mm3 (4.5-10.0) RBC 2.73 M/mm3 L M/mm3 (4.2-5.4) Hgb 8.4 g/dL L g/dL (12.0-15.0) Hct 28.5 % L % (37.0-47.0) MCV 104.4 fl H fl (80-100) MCH 30.8 pg pg (26-34) MCHC 29.5 g/dl L g/dl (32-36) RDW 18.8 % H % (11.5-14.5) Plt Count 133 k/mm3 L k/mm3 (150-375) MPV 11.7 fl H fl (7.4-10.4) Immature Gran % (Auto) 2.3 % H % (0-0.5) Neut % (Auto) 72.0 % % (45.5-73.1) Lymph % (Auto) 13.1 % L % (18.3-44.2) [place] % (Auto) 9.3 % H % (2.6-8.5) Eos % (Auto) 1.9 % % (0-4.4) Baso % (Auto) 1.4 % H % (0.2-1.2) Lymph # (Auto) 1.45 K/mm3 K/mm3 (0.9-3.2) [place] # (Auto) 1.0 K/mm3 H K/mm3 (0.1-0.6) Eos
[2022-08-08] MEDS: HEPARIN SODIUM 5,000 UNITS/ML VIAL 5000 UNITS IRRIGATION (14:18)
[2022-08-08] MEDS: HEPARIN SODIUM, PORCINE 10,000 UNITS/10 ML VIAL 5000 UNITS XX (14:39)
[2022-08-08] MEDS: LIDO 1%/EPINEPHRINE 1:100,000 20 ML VIAL INFILTRATE (14:39)
--- NOTE | 2022-08-08 14:52 | W.PM.PROC2 ---
Procedure Note - Detailed Date of Procedure 08/08/22 Pre-op Diagnosis End-stage renal disease Post-op Diagnosis Same Procedure Performed placement of 24 cm tunneled hemodialysis catheter in left internal jugular vein under both ultrasound and fluroscopic guidance Surgeon Julianne Webster MD Anesthesia MAC and Local Indications 66 y/o F c end stage renal disease needing access Findings 1st stick LIJ under U/S, unable to draw from venous side c 28 cm catheter, switched to 24 cm Description of Procedure Patient was taken to the operating room and placed in the supine position. After adequate induction of general anesthesia, the patient was prepped and draped in normal sterile fashion. A time-out was then done to verify the patient's identity as well as the procedure being performed. I began by using the SonoSite and locating the left internal jugular vein. Once this was done, I localized the overlying skin. I then made a small incision in the skin. I then gained access into the left internal jugular vein with an 18 gauge needle. At this point, I threaded the guidewire into the left internal jugular vein. Placement of the guidewire was confirmed by both ultrasound and fluoroscopic guidance. I then went ahead and measured the 28 cm tunneled dialysis catheter to our stick site in the right neck. I then localized the tract going from the left chest to the left neck. I then made a small incision in the left chest and tunneled the catheter to the left neck. I then serially dilated the left internal jugular vein under fluoroscopic guidance. Once adequately dilated, I placed the dilating sheath over the guidewire into the left internal jugular vein under fluoroscopic visualization. Once this was noted to be in good position, I removed both the guidewire and dilator, now just leaving the sheath in the vein. I then went ahead and fed the previously tunneled catheter into the sheath. Once the catheter was fed and positioned correctly, I went ahead and peeled the sheath away. Fluoroscopic view showed the catheter in good position from its insertion point in the left chest to its termination in the right atrial caval junction. It was noted there was no kinking of the catheter. I was able to easily draw and flush from the arterial port but had difficulty drawing from the venous port. Despite multiple attempts including repositioning, I could not draw from this port. Given this, I replaced this catheter with a 24 cm catheter. Fluoroscopy was once again used to confirm placement and ensure no kinking. The catheter was noted to be in good position and I was able to now easily draw and flush from both ports sites. I placed 2.2 and 2.0 cc of final heparin flush into each port as marked. The catheter was then sutured into place and the incision in the neck was closed with 4 O Monocryl subcuticular suture. The patient tolerated the procedure well and will be transferred to the floor in stable condition. Sterile dressing was placed on the catheter. Portable chest x-ray will be done in the PACU. Implants 24 cm tunneled hemodialysis catheter Estimated Blood Loss 25 Urine Output 0 Drains No Packing No Pathology None sent Complications No immediate complications Condition Stable Disposition PACU [facility] Billing Surgery - Charge Forward: Surgery Billing
--- NOTE | 2022-08-08 15:21 | SUR.PHASEI ---
1515 updated ed surg nurse on pt condition.
--- NOTE | 2022-08-08 15:53 | ED.PROCEDURE ---
Procedures Other Procedures Procedure 1: Other Procedure: I responded to a CODE BLUE. Patient was in PEA arrest in the ICU after returning from the OR for tunneled dialysis line placement. Patient received epinephrine as well as calcium gluconate IV. Patient had brief return of spontaneous circulation. Patient then went into PEA arrest again and compressions were restarted. Patient was also in V-fib and received defibrillation x2. Patient's was present and reports that she is a DNR. He is aware that she was in V-fib and wanted 1 more shock. Patient was then in PEA and patient was pronounced as at 1537. A chest x-ray was performed in the interim that showed no pneumothorax. The tunneled catheter and ET tube seem to be in appropriate position.
--- NOTE | 2022-08-08 17:23 | PM.DDS ---
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 She had a long complicated course. She actually was doing well with plans for prison placement for therapy. Unfortunately, no facilities perform peritoneal dialysis. We held her over and she did therapy but still not strong enough for discharge home so plan was to change her to hemodialysis. She underwent left tunneled hemodialysis catheter placement. Post placement, patient had a cardiac arrest. Code Blue was called and CPR started. Family was present and reported that patient is a DNR. Patient on 08/08/22 at 1537. Additional Data Confirmation of as documented by pronouncing clinician: Pupillary Reflex, Palpable Pulses, Response to Stimuli, Heart Tones and Breath Sounds Name of Provider Notified: Dr. Olson Time Provider Notified: 16:00 Provider Requests Autopsy: No Family Requests Autopsy: No [employer] Sales Representative Notified: Yes Date [facility] Notified of : 08/08/22 Time [facility] Notified of : 16:04
--- NOTE | 2022-08-09 14:04 | PM.EVENT ---
Event Note Event Note Event Note: At 3:30 pm on 08/08/22, I was asked by Dr. Webster to go take a look at the patient in ICU as she had developed cardiopulmonary arrest following tunneled dialysis catheter placement. As I arrived, she was already intubated and CPR was underway. While they were doing chest compressions, I looked at her catheter, chest, and neck. There was no hematoma or ecchymosis noted. There was no crepitus or subcutaneous emphysema. Her catheter was in place with the dressing dry and intact. The interventional radiology tech was present and had already obtained a chest x-ray that I reviewed on their machine outside the room. There was no obvious evidence of a pneumothorax or hemothorax. The catheter had a more medial position that expected, but no collapsed lung or hemothorax noted. I immediately telephoned Dr. Webster while at the bedside and reported all of the above mentioned findings to him. When getting off the phone, the patient's was talking to the physician running the code and the decided to stop the code as his did not wish to be resuscitated. She then . I then notified Dr. Webster of this change as well.
== END 2022-08-08 15:37 | disposition expired | DRG 871 ==
LOC: ANHED 06:21 → ANHICU 12:00 → ANHIMU 07-29 21:26 → ANH3MEDSUR 08-01 14:28 → ANHICU 08-08 15:22
PROVIDERS: Emergency Medicine; Internal Medicine; Internal Medicine Nephrology; Physician Assistant; Student in an Organized Health Care Education/Training Program; Surgery; Admitting Provider Internal Medicine; Emergency Provider Emergency Medicine; PCP Family Medicine; Visit Provider Internal Medicine
PROC: 0JH63XZ Insertion of Tunneled Vascular Access Device into Chest Subcutaneous Tissue and Fascia, Percutaneous Approach (ICD-10-PCS; CPT 36908; principal; 2022-08-08 15:00)
DX: A41.01 Sepsis due to Methicillin susceptible Staphylococcus aureus (principal); G93.41 Metabolic encephalopathy; J18.9 Pneumonia, unspecified organism; K65.9 Peritonitis, unspecified; R65.21 Severe sepsis with septic shock; N18.6 End stage renal disease; E87.1 Hypo-osmolality and hyponatremia; Z16.21 Resistance to vancomycin; Z16.24 Resistance to multiple antibiotics; K63.3 Ulcer of intestine; I46.9 Cardiac arrest, cause unspecified; E86.0 Dehydration; E11.22 Type 2 diabetes mellitus with diabetic chronic kidney disease; K59.00 Constipation, unspecified; D63.1 Anemia in chronic kidney disease; I95.1 Orthostatic hypotension; J45.20 Mild intermittent asthma, uncomplicated; M70.62 Trochanteric bursitis, left hip; E03.9 Hypothyroidism, unspecified; E87.6 Hypokalemia; Z20.822 Contact with and (suspected) exposure to COVID-19; Z99.2 Dependence on renal dialysis; Z66 Do not resuscitate; Z88.0 Allergy status to penicillin; Z88.1 Allergy status to other antibiotic agents; Z88.5 Allergy status to narcotic agent; W19.XXXA Unspecified fall, initial encounter; Z79.899 Other long term (current) drug therapy
CPT/HCPCS: 36415; 36556; 70450; 70496; 71045; 72125; 73030; 73700; 74176; 75989; 77001; 80048; 80053; 80069; 80202; 81001; 82140; 82274; 82565; 82948; 83605; 83735; 84100; 84145; 84295; 84439; 84443; 84480; 85014; 85018; 85025; 85027; 85055; 85610; 85730; 86140; 87040; 87070; 87075; 87077; 87086; 87088; 87102; 87186; 87205; 87206; 87449; 87636; 87899; 89051; 90945; 93005; 96361; 96365; 96367; 97110; 97161; 97165; 97166; 97530; 97535; 99285; A9270; C1729; C1750; C1751; C1769; C9113; G0378; J0131; J0171; J0282; J0743; J1644; J1720; J1815; J2020; J2405; J2997; J3370; J3475; J7030; J7040; J7050; J7131; P9047; Q5105; Q9967